=== PATIENT | female | born 1970 | race Caucasian/White ===

== ENCOUNTER 2023-07-29 12:37 | Outpatient (OUT) | payer MEDICARE, SELFPAY ==
--- NOTE | 2023-07-29 12:48 | MM_ITS ---
Patient: DONNA BANERJEE Exam Date: 07/29/2023 : 1970 Gender:F Ordering : DR Calvin Quintanilla . Admission #: [id number] Family : MR. Trey Flores JITENDRA Order #: [id number] CLICK HERE TO VIEW EXAM RADIOLOGY REPORT PROCEDURE: MM TOMOSYNTHESIS SCREENING BI COMPARISON: MG MAMM SCREEN 3D MICHAEL CAD, 07/27/2022. MG MAMM SCREEN 3D MICHAEL CAD, 07/26/2021. INDICATIONS: Screening Calculator Name NCI Breast Cancer Risk Assessment Tool 5 Year Breast Cancer Risk 1.60% Lifetime Breast Cancer Risk 12.50% Personal Breast Cancer No Personal Ovarian Cancer No Treatments None Family Cancers Father with lung cancer at age 55; Aunt-paternal with lung cancer at age 60; Cousin-paternal with breast cancer at age 32. LOCATION: [facility] BREAST COMPOSITION: Heterogeneously dense,which may obscure small masses. FINDINGS: DIAGNOSTIC CATEGORY 2--BENIGN FINDING. NO CHANGE FROM COMPARISON. Scattered benign-appearing nodules are present. Scattered benign-appearing calcifications are present. Scattered benign-appearing lymph nodes are present. RIGHT BREAST: No significant suspicious finding. LEFT BREAST: No significant suspicious finding. RECOMMENDATIONS: ROUTINE MAMMOGRAM AND CLINICAL EVALUATION IN 12 MONTHS. PLEASE NOTE: A NORMAL MAMMOGRAM DOES NOT EXCLUDE THE POSSIBILITY OF BREAST CANCER. A CLINICALLY SUSPICIOUS PALPABLE LUMP SHOULD BE BIOPSIED. Dictated by: Vlad Mary MD on 07/29/2023 at 15:16 Approved by: Vlad Mary MD on 07/29/2023 at 15:19
== END 2023-07-29 12:38 | disposition home or self-care (01) ==
LOC: MAMMO 12:41
PROVIDERS: PCP Physician Assistant; Visit Provider Obstetrics & Gynecology
DX: Z12.31 Encounter for screening mammogram for malignant neoplasm of breast (principal); Z80.3 Family history of malignant neoplasm of breast; Z80.1 Family history of malignant neoplasm of trachea, bronchus and lung
CPT/HCPCS: 77063; 77067

== ENCOUNTER 2024-02-17 21:59 | Outpatient (REF) | payer MEDICARE, SELFPAY | END 2024-02-17 22:00 | disposition home or self-care (01) | LOC: LAB 21:59 | PROVIDERS: PCP Physician Assistant; Visit Provider Obstetrics & Gynecology | DX: Z01.419 Encounter for gynecological examination (general) (routine) without abnormal findings (principal) | CPT/HCPCS: 87624; G0145 ==

== ENCOUNTER 2024-03-31 13:14 | Outpatient (OUT) | payer MEDICARE, SELFPAY ==
[2024-03-31 13:33] LABS: Hemoglobin 15.9 g/dL (12.0-16.0)
[2024-03-31] MEDS: ALBUTEROL SULFATE 2.5 MG/3 ML VIAL NEB IH (14:21)
--- NOTE | 2024-03-31 14:41 | RT_ITS ---
[facility] Test Date: 2024-03-31 Pat Name: DONNA BANERJEE Department: Room: - Gender: Female Batter Scaler: Kevin Aponte RRT : 1970 Requested By: Tye Perkins Order Number: [id number] Reading MD: Tye Perkins Interpretive Statements Pulmonary function testing was completed according to ATS criteria. Findings were considered accurate and reproducible, with exception of DLCO which did not meet ATS standards. Both pre- and post-bronchodilator values utilized for spirometry. Spirometry (based on pre-bronchodilator values): -FEV1/FVC: Normal @ 79% -FEV1: Severely reduced @ 39% -FVC: Severely reduced @ 39% -IKY79-67%: Reduced @ 32% -There is a positive bronchodilator response in LGV23-78%, but diagnostic and clinical significance is unclear. Lung volumes by plethysmography (based on pre-bronchodilator values): -RV: Normal @ 108% -TLC: Normal @ 83% Diffusion capacity: -DLCO: Normal @ 87% when corrected for Hb 15.9g/dL Flow-volume loop: -Severe restrictive pattern Impressions: -Spirometry trends towards very severe restriction with normal lung volumes and diffusion capacity. Overall this is compatible with an obesity pattern (based on patient's BMI of 48.8). Clinical correlation is required. Electronically Signed On 03-31-2024 15:55:40 EDT by Tye Perkins
--- NOTE | 2024-03-31 15:01 | CT_ITS ---
[address] [address] Patient Name: DONNA BANERJEE MRN: [id number] date: 1970 Sex: F Assigned Patient Location: CARD Current Patient Location: Accession/Order Number: [id number] Exam Date: 03/31/2024 15:19 Report Date: 04/01/2024 07:26 At the request of: LARA HARLEY Procedure: CT lung screening low-dose EXAMINATION: CT lung screening low-dose HISTORY: Screening For Malignant Neoplasm Of Respiratory Organs COMPARISON: CTA chest 03/16/2019 TECHNIQUE: Axial, Coronal, and Sagittal images were created without the administration of IV contrast material. Dose reduction techniques were achieved by using automated exposure control and/or adjustment of mA and/or kV according to patient size and/or use of iterative reconstruction technique. FINDINGS: LUNGS: No visible pulmonary disease. PLEURA: Stable 4 mm pleural-based nodule within anterior lateral left upper lobe at level of hilum. No pleural effusion, pneumothorax, or pleural thickening. VASCULATURE: No abnormality. MICHELE: No mass or pathologic adenopathy. MEDIASTINUM: No mass or pathologic adenopathy. CARDIAC: No enlargement, pericardial thickening, or pericardial effusion. Coronary artery calcifications: Mild. AORTA: No aneurysm or dissection. CHEST WALL: No mass or axillary adenopathy BONES: No bone lesion or fracture. LIMITED ABDOMEN: No suspicious findings. Limited images of the upper abdomen. OTHER: Negative. CT/CT lung screening low-dose IMPRESSION: 1. Lung-RADS 2- Benign Appearance or Behavior. Nodules with a very low likelihood of becoming a clinically active cancer due to size or lack of growth. Follow-up CT Chest in 1 year. Electronically authenticated by: RENE MCLAIN Date: 04/01/2024 07:26
== END 2024-03-31 13:15 | disposition home or self-care (01) ==
LOC: CARD 13:15
PROVIDERS: PCP Physician Assistant; Visit Provider Internal Medicine
DX: J45.40 Moderate persistent asthma, uncomplicated (principal); F17.211 Nicotine dependence, cigarettes, in remission; Z12.2 Encounter for screening for malignant neoplasm of respiratory organs
CPT/HCPCS: 36415; 71271; 85018; 94060; 94726; 94729; 99406

== ENCOUNTER 2024-07-30 11:05 | Outpatient (OUT) | payer MEDICARE, MEDICAID, SELFPAY ==
--- NOTE | 2024-07-30 11:11 | MM_ITS ---
Patient Name: DONNA BANERJEE MR#: [id number] : 1970 Exam Date: 07/30/2024 Ordering Doctor: DR Calvin Quintanilla . RADIOLOGY REPORT PROCEDURE: MM TOMOSYNTHESIS SCREENING BI COMPARISON: MM TOMOSYNTHESIS SCREENING BI, 07/29/2023. INDICATIONS: Screening Calculator Name NCI Breast Cancer Risk Assessment Tool 5 Year Breast Cancer Risk 3.40% Lifetime Breast Cancer Risk 24.40% Personal Breast Cancer No Personal Ovarian Cancer No Treatments None Family Cancers Sister with breast cancer at age 51; Father with lung cancer at age 55; Aunt-paternal with lung cancer at age 60; Cousin-paternal with breast cancer at age 32. LOCATION: [facility] BREAST COMPOSITION: The breasts are heterogeneously dense,which may obscure small masses. FINDINGS: DIAGNOSTIC CATEGORY 2--BENIGN FINDING: Scattered benign-appearing calcifications are present. Scattered benign-appearing lymph nodes are present. RIGHT BREAST: No significant suspicious finding. LEFT BREAST: No significant suspicious finding. RECOMMENDATIONS: ROUTINE MAMMOGRAM AND CLINICAL EVALUATION IN 12 MONTHS. PLEASE NOTE: A NORMAL MAMMOGRAM DOES NOT EXCLUDE THE POSSIBILITY OF BREAST CANCER. A CLINICALLY SUSPICIOUS PALPABLE LUMP SHOULD BE BIOPSIED. Dictated by: Vlad Mary MD on 07/30/2024 at 15:39 Approved by: Vlad Mary MD on 07/30/2024 at 15:50
--- OUTSIDE RECORDS SUMMARY | 2024-07-30 11:14 | XMS_ITS | CCD ---
Author Organization [facility] Care Team Providers Care Electronic Warfare Technical Name Role Phone YO HUSSEIN Unavailable Unavailable YO HUSSEIN Unavailable Unavailable Provider, None Unavailable Unavailable Provider, None Unavailable Unavailable Provider, None Unavailable Unavailable BO GIMENEZ Unavailable Unavailable CLIVE COVARRUBIAS Unavailable Unavailable EBRAHEIM, JOVANNI Admitting Unavailable EBRAHEIM, JOVANNI Attending Unavailable UNKNOWN, PHYSICIAN Primary Care Unavailable UNKNOWN, PHYSICIAN Referring Unavailable ABBYESICA, DR RODRIGUEZ Admitting Unavailable ABBAS, DR RODRIGUEZ Consulting Unavailable ABBAS, DR RODRIGUEZ Attending Unavailable REQUEST, NONE LISTED Primary Care Unavaila ble WEST, DR SHAKIRA Gillis Consulting Unavailable JEREL, ERENDIRA Attending Unavailable REQUEST, NONE LISTED Primary Care Unavaila ble JEREL, ERENDIRA Admitting Unavailable JEREL, ERENDIRA Consulting Unavailable JEREL, ERENDIRA Attending Unavailable REQUEST, NONE LISTED Primary Care Unavaila ble WEST, DR SHAKIRA Gillis Consulting Unavailable JEREL, ERENDIRA Admitting Unavailable JEREL, ERENDIRA Consulting Unavailable Angelica Flores PA-C Primary Care Provider [phone] Unavailable Primary Care Provider Unavailabl e ERENDIRA BELTRÁN Attending Unavailable JENNIFER CASTRO Attending Unavailable ANGELICA FLORES Referring Unavailable MAMTA, ANGELICA Ruggiero Primary Care Unavailable JENNIFER CASTRO Attending Unavailable ANGELICA FLORES Referring Unavailable ANGELICA FLORES Primary Care Unavailable JENNIFER CASTRO Attending Unavailable ANGELICA FLORES Referring Unavailable MAMTA, ANGELICA Ruggiero Primary Care Unavailable JENNIFER CASTRO Attending Unavailable ANGELICA FLORES Referring Unavailable MAMTA, ANGELICA Ruggiero Primary Care Unavailable JENNIFER CASTRO Attending Unavailable ANGELICA FLORES Referring Unavailable ANGELICA FLORES Primary Care Unavailable BO DAWSON Attending Unavailable ANGELICA FLORES Referring Unavailable ANGELICA FLORES Primary Care Unavailable SHAKIRA ROGERS Attending Unavailable ANGELICA FLORES Referring Unavailable MARCUS AMADOR Primary Care Unavailable ABBAS, JIHAD T Attending Unavailable FLORES, ANGELICA A Referring Unavailable FOLRES, ANGELICA A Primary Care Unavailable SHAKIRA ROGERS Referring Unavailable PERRY, MARCUS Primary Care Unavailable SHAKIRA ROGERS Attending Unavailable PERRY, MARCUS Referring Unavailable PERRY, MARCUS Primary Care Unavailable SHAKIRA ROGERS Attending Unavailable PERRY, MARCUS Referring Unavailable PERRY, MARCUS Primary Care Unavailable SHAKIRA ROGERS Referring Unavailable PERRY, MARCUS Primary Care Unavailable BROWN, CHRISTOPHER Attending Unavailable BROWN, CHRISTOPHER Attending Unavailable BROWN, CHRISTOPHER Attending Unavailable BROWN, CHRISTOPHER Referring Unavailable BROWN, CHRISTOPHER Attending Unavailable BROWN, CHRISTOPHER Referring Unavailable BROWN, CHRISTOPHER Attending Unavailable BROWN, CHRISTOPHER Referring Unavailable BROWN, CHRISTOPHER Attending Unavailable VERROCAEL CUEVA Attending Unavailable FLORES, ANGELICA A Referring Unavailable FLORES, ANGELICA A Primary Care Unavailable ABBYESICA, JENNIFER Silva Referring Unavailable FLORES, ANGELICA A Primary Care Unavailable HONG CASTRO Attending Unavailable CASTROHONG MACHUCA Referring Unavailable FLORES, ANGELICA A Primary Care Unavailable HONG CASTRO Admitting Unavailable CASTROHONG MACHUCA Attending Unavailable FLORES, ANGELICA A Referring Unavailable FLORES, ANGELICA A Primary Care Unavailable JAMES BROWN Attending Unavailable MAMTA, ANGELICA A Primary Care Unavailable HONG CASTRO Admitting Unavailable CASTROHONG MACHUCA Attending Unavailable FLORES, ANGELICA A Referring Unavailable FLORES, ANGELICA A Primary Care Unavailable CASTROHONG MACHUCA Attending Unavailable CASTROHONG MACHUCA Referring Unavailable FLORES, ANGELICA A Primary Care Unavailable JAMES BROWN Attending Unavailable MAMTA, ANGELICA A Primary Care Unavailable BO DAWSON Referring Unavailable FLORES, ANGELICA A Primary Care Unavailable BO DAWSON Referring Unavailable FLORES, ANGELICA A Primary Care Unavailable ROCAEL GOETZ Attending Unavailable MAMTA, ANGELICA A Referring Unavailable PERRY, MARCUS Primary Care Unavailable SHAKIRA ALVARENGA Referring Unavailable PERRY, MARCUS Primary Care Unavailable FLORES, ANGELICA A Primary Care Unavailable FRANKLIN GREEN Attending Unavailable ELÍAS GUPTA Admitting Unavailable SHAKIRA ALVARENGA Attending Unavailable SHAKIRA ALVARENGA Referring Unavailable PERRY, MARCUS Primary Care Unavailable PERRY, MARCUS Referring Unavailable PERRY, MARCUS Primary Care Unavailable SHAKIRA ALVARENGA Attending Unavailable SHAKIRA ALVARENGA Referring Unavailable PERRY, MARCUS Primary Care Unavailable ROCAEL GOETZ Referring Unavailable PERRY, MARCUS Primary Care Unavailable PERRY, MARCUS Referring Unavailable PERRY, MARCUS Primary Care Unavailable HONG CASTRO Admitting Unavailable CASTRO, HONG E Attending Unavailable MAMTA ANGELICA A Referring Unavailable PERRY, MARCUS Primary Care Unavailable BO DAWSON Referring Unavailable PERRY, MARCUS Primary Care Unavailable BO DAWSON Admitting Unavailable BO DAWSON Attending Unavailable PERRY, MARCUS Primary Care Unavailable SHAKIRA ALVARENGA Attending Unavailable PERRY, MARCUS Primary Care Unavailable ROCAEL GOETZ Attending Unavailable PERRY, MARCUS Referring Unavailable PERRY, MARCUS Primary Care Unavailable PERRY, MARCUS Primary Care Unavailable AMPARO ARTEAGA Attending Unavailable ONLY), [facility] (INPATIENT Consult ing Unavailable GINNY, MUHAMID M Admitting Unavailable [facility], [facility] Consulting Unavailable AMPARO ARTEAGA Attending Unavailable AMPARO ARTEAGA Referring Unavailable PERRY, MARCUS Primary Care Unavailable DEANA NICHOLS Attending Unavailable DEANA NICHOLS Referring Unavailable PERRY, MARCUS Primary Care Unavailable BÁRBARA RYAN Attending Unavailable SHELBY BÁRBARA Referring Unavailable PERRY, MARCUS Primary Care Unavailable BO BECERRA Admitting Unavailable BO BECERRA Attending Unavailable MAMTA, ANGELICA A Primary Care Unavailable JOHANNE ROYAL Attending Unavailable FLORES, ANGELICA A Primary Care Unavailable GRILLISBO Attending Unavailable GRILLIS BO Russel Referring Unavailable FLORES, ANGELICA A Primary Care Unavailable FRANKLIN GREEN Attending Unavailable FRANKLIN GREEN Referring Unavailable FLORES, ANGELICA A Primary Care Unavailable JONE MONTALOV Attending Unavailable JONE MONTALVO Referring Unavailable FLORES, ANGELICA A Primary Care Unavailable ROCAEL GOETZ Attending Unavailable FLORES, ANGELICA A Referring Unavailable FLORES, ANGELICA A Primary Care Unavailable DEANA NICHOLS Attending Unavailable DEANA NICHOLS Referring Unavailable PERRY, MARCUS Primary Care Unavailable JONE MONTALVO Attending Unavailable KRGILBERT JONE D Referring Unavailable PERRY, MARCUS Primary Care Unavailable GINNY, RACHELHAMJASON M Attending Unavailable GINNY, MUHAMID M Referring Unavailable PERRY, MARCUS Primary Care Unavailable JEN AMANDA Attending Unavailable TREASURE JEN Referring Unavailable PERRY, MARCUS Primary Care Unavailable JEN AMANDA Attending Unavailable TREASURE JEN Referring Unavailable PERRY, MARCUS Primary Care Unavailable CASTRO, HONG E Admitting Unavailable CASTROHONG E Attending Unavailable PERRY, MARCUS Referring Unavailable PERRY, MARCUS Primary Care Unavailable BO DAWSON Attending Unavailable BO DAWSON Referring Unavailable PERRY, MARCUS Primary Care Unavailable JEN AMANDA Referring Unavailable [facility] Unavailable Allergies Allergy Classification Reported Allergen(s) Allergy Type Date of Onset Reaction(s) Facility Aminoglycosides (antibiotic) (1 source) Gentamicin Sulfate (INTERMEDIATE); Translations: [GENTAMICIN] Drug Allergy 3 [facility] Anti-Epileptic Agents (1 source) gabapentin; Translations: [GABAPENTIN] Drug Allergy 1 [facility] Latex (1 source) Latex; Translations: [LATEX] Substance Allergy 8 [facility] (13 sources) Latex; Translations: [Latex] Propensity to adverse reactions (disorder) 8 [facility] Rep[facility] (13 sources) gabapentin; Translations: [GABAPENTIN] Drug Allergy 1 Swelling [facility] (12 sources) Gentamicin; Translations: [GENTAMICIN] Drug Allergy 3 Rash [facility] (1 source) Capsaicin; Translations: [CAPSAICIN] Drug Allergy 4 [facility] Medications Current Medications Medication Drug Class(es) Dates Sig (Normalized) Sig (Original) [id number] 200 actuat albuterol 0.09 mg/actuat metered dose inhaler (11 sources) beta2-Adrenergic Agonist Start: 11-16-2022 take 2 puff(s) by inhalation every six hours as needed for wheezing albuterol (PROVENTIL HFA;VENTOLIN HFA) 90 mcg/actuation inhaler Indications: Bronchitis Inhale 2 puffs every 6 (six) hours as needed for wheezing. 18 g 0 11/16/2022 Active DULoxetine 60 mg delayed release oral capsule (13 sources) Serotonin and Norepinephrine Reuptake Inhibitor Start: 01-29-2024 take 1 capsule by mouth in the morning DULoxetine (CYMBALTA) 60 mg capsule Indications: neuropathic pain Take 1 capsule (60 mg total) by mouth in the morning. Indications: neuropathic pain. 30 capsule 3 01/29/2024 Active Start: 09-04-2023 End: 01-27-2024 take 1 capsule by mouth in the morning DULoxetine (CYMBALTA) 60 mg capsule Indications: neuropathic pain Take 1 capsule (60 mg total) by mouth in the morning. Indications: neuropathic pain. 30 capsule 3 09/04/2023 01/27/2024 Discontinued (Reorder) 60 actuat formoterol fumarate 0.005 mg/actuat / mometasone furoate 0.1 mg/actuat metered dose inhaler (11 sources) Corticosteroid, beta2-Adrenergic Agonist take 2 puff(s) by inhalation in the morning mometasone-formoterol (DULERA) 100-5 mcg/actuation inhaler Indications: maintenance therapy for asthma Inhale 2 puffs in the morning and 2 puffs before bedtime. Indications: controller medication for asthma. 0 Active omeprazole 40 mg delayed release oral capsule (11 sources) Proton Pump Inhibitor Start : 07-19 take 1 capsule by mouth in the morning omeprazole (PriLOSEC) 40 mg capsule Indications: gastroesophageal reflux disease Take 1 capsule (40 mg total) by mouth in the morning. Indications: gastroesophageal reflux disease. 0 07/19/2020 Active 24 hr oxybutynin chloride 5 mg extended release oral tablet (11 sources) Cholinergic Muscarinic Antagonist Start : 04-22 take 1 tablet by mouth every twenty-four hours in the morning oxybutynin XL (DITROPAN-XL) 5 mg 24 hr tablet Take 1 tablet (5 mg total) by mouth in the morning. 90 tablet 3 04/22/2023 Active predniSONE 10 mg oral tablet (7 sources) Start : 11-14 End: 11-29 take 4 tablets by mouth once daily, then take 3 tablets by mouth once daily, then take 2 tablets by mouth once daily, then take 1 tablet by mouth once daily predniSONE (DELTASONE) 10 mg tablet Take 4 tablets (40 mg total) by mouth daily for 4 days, THEN 3 tablets (30 mg total) daily for 4 days, THEN 2 tablets (20 mg total) daily for 4 days, THEN 1 tablet (10 mg total) daily for 4 days. 40 tablet 0 11/14/2023 11/29/2023 Active therapeutic multivitamin (THERAGRAN) tablet (11 sources) take 1 tablet by mouth in the morning therapeutic multivitamin (THERAGRAN) tablet Indications: vitamin deficiency prevention Take 1 tablet by mouth in the morning. Indications: treatment to prevent vitamin deficiency. 0 Active take 1 tablet by mouth in the mo rning therapeutic multivitamin (THERAGRAN) tablet Indications: vitamin deficiency prevention Take 1 tablet by mouth in the morning. Indications: treatment to prevent vitamin deficiency. 0 triamcinolone acetonide 0.001 mg/mg topical ointment (4 sources) Corticosteroid Start: 12-12-2023 triamcinolone (KENALOG) 0.1 % ointment Indications: Venous stasis dermatitis of both lower extremities Apply 1 Application topically in the morning and 1 Application before bedtime. 30 g 0 12/12/2023 Active Start: 08-12-2023 End: 11-08-2023 triamcinolone (KENALOG) 0.1 % cream Apply 1 Application topically. 0 08/12/2023 11/08/2023 Discontinued (Therapy completed) Completed/Discontinued Medications Medication Drug Class(es) Dates Sig (Normalized) Sig (Original) acetaminophen 325 mg oral tablet (12 sources) Start: 11-08-2023 End: 11-14-2023 take 1 tablet by mouth every four hours as needed for pain and headache and fever acetaminophen (TYLENOL) tablet 650 mg take 1 tablet by lydia th every eight hours as needed for pain acetaminophen (TYLENOL ARTHRITIS) 650 mg 8 hr tablet Take 1 tablet (650 mg total) by mouth every 8 (eight) hours as needed for pain. 0 Active albuterol 0.833 mg/ml / ipratropium bromide 0.167 mg/ml inhalation solution (1 source) Anticholinergic, beta2-Adrenergic Agonist Start: 11-08-2023 End: 11-08-2023 ipratropium-albuteroL (DUONEB) 0.5 mg-3 mg(2.5 mg base)/3 mL nebulizer solution 3 mL aluminum hydroxide 40 mg/ml / magnesium hydroxide 40 mg/ml / simethicone 4 mg/ml oral suspension (1 source) Start: 11-08-2023 End: 11-14-2023 alum-mag hydroxide-simeth (MAALOX) 200-200-20 mg/5 mL suspension 30 mL aspirin 325 mg delayed release oral tablet (12 sources) Platelet Aggregation Inhibitor, Nonsteroidal Anti-inflammatory Drug Start: 11-09-2023 End: 11-14-2023 take 325 mg by mouth once daily 325 mg, oral, Daily, First dose on 11/09/23 at 0900, Do not crush or chew. calcium carbonate 1250 mg / cholecalciferol 200 unt oral tablet (12 sources) Vitamin D Start: 11-09-2023 End: 11-14-2023 take 1 tablet by mouth once daily at breakfast 1 tablet, oral, Daily with breakfast, First dose on 11/09/23 at 0800, Look-alike/sound-alike medication - verify indication for use. Vit D3 200 IU = 5 mcg. Start: 07-23-2019 take 1 tablet by lydia th once daily in the morning CALCIUM 600 + D,3, 600 mg(1,500mg) -400 unit per tablet Indications: prevention of vitamin D deficiency Take 1 tablet by mouth in the morning. Indications: prevention of vitamin D deficiency. 3 07/23/2019 Active 100 ml calcium gluconate 20 mg/ml injection (1 source) Start: 11-08-2023 End: 11-14-2023 calcium gluconate IVPB 2000 mg/100 mL (20 mg/mL premix) calcium gluconate 3,000 mg in sodium chloride 0.9 % 100 mL IVPB (1 source) Start: 11-08-2023 End: 11-14-2023 calcium gluconate 3,000 mg in sodium chloride 0.9 % 100 mL IVPB calcium gluconate 4,000 mg in sodium chloride 0.9 % 250 mL IVPB (1 source) Start: 11-08-2023 End: 11-14-2023 calcium gluconate 4,000 mg in sodium chloride 0.9 % 250 mL IVPB cefTRIAXone 1000 mg injection (1 source) Cephalosporin Antibacterial Start: 11-12-2023 End: 11-14-2023 take 1000 mg intravenously every twenty-four hours cefTRIAXone (ROCEPHIN) IVPB 1000 mg/50 mL in iso-osmotic dextrose (20 mg/mL premix) docusate sodium 50 mg / sennosides, care home 8.6 mg oral tablet (1 source) Start: 11-08-2023 End: 11-14-2023 take 1 tablet by mouth every twelve hours as needed for constipation sennosides-docus ate sodium (SENOKOT-S) 8.6-50 mg 1 tablet doxycycline hyclate 100 mg oral tablet (5 sources) Tetracycline-class Drug Start: 11-12-2023 End: 11-19-2023 take 1 tablet by mouth in the morning, then take 1 tablet by mouth at bedtime doxycycline (VIBRA-TABS) 100 mg tablet Take 1 tablet (100 mg total) by mouth in the morning and 1 tablet (100 mg total) before bedtime. Do all this for 5 days. 10 tablet 0 11/14/2023 11/19/2023 0.4 ml enoxaparin sodium 100 mg/ml prefilled syringe (2 sources) Low Molecular Weight Heparin Start: 11-09-2023 End: 11-14-2023 enoxaparin (LOVENOX) syringe 40 mg Start: 11-08-2023 End: 11-09-2023 enoxaparin (LOVENOX) 40 mg/0 .4 mL syringe - Pyxis Override Pull glucagon (rdna) 1 mg injection (1 source) Antihypoglycemic Agent Start: 11-08-2023 End: 11-14-2023 glucagon HCL injection 1 mg 150 ml glucose 50 mg/ml injection (3 sources) Start: 11-08-2023 End: 11-14-2023 dextrose (GLUTOSE) 40 % gel 15 g Start: 11-08-2023 End: 11-14-2023 dextrose 50 % in water (D50W ) 50% solution 25 mL Start: 11-08-2023 End: 11-14-2023 dextrose 5 % (D5W) infusion insulin lispro (HumaLOG) 100 unit/mL injection - Pyxis Override Pull (1 source) Start: 11-08-2023 End: 11-08-2023 insulin lispro (HumaLOG) 100 unit/mL injection - Pyxis Override Pull insulin lispro (HumaLOG) injection 2-10 Units (1 source) Start: 11-09-2023 End: 11-14-2023 insulin lispro (HumaLOG) injection 2-10 Units insulin lispro (HumaLOG) injection 2-8 Units (1 source) Start: 11-08-2023 End: 11-14-2023 insulin lispro (HumaLOG) injection 2-8 Units levalbuterol 0.417 mg/ml inhalation solution (1 source) beta2-Adrenerg ic Agonist Start: 11-08-2023 End: 11-14-2023 take 1.25 mg by inhalation every six hours as needed for wheezing and dyspnea levalbuterol (XOPENEX) nebulizer solution 1.25 mg loratadine 10 mg oral tablet (13 sources) Start: 11-08-2023 End: 11-14-2023 take 10 mg by mouth once daily for rhinitis 10 mg, oral, Nightly, First dose on Sat11/08/23 at 2200, Look-alike/sound-a like medication - verify indication for use., Indications: allergic rhinitis 50 ml magnesium sulfate 40 mg/ml injection (2 sources) Start: 11-08-2023 End: 11-14-2023 magnesium sulfate IVPB 2000 mg/50 mL in iso-osmotic water (40 mg/mL premix) Start: 11-08-2023 End: 11-14-2023 magnesium sulfate IVPB 4000 mg/100 mL in iso-osmotic water (40 mg/mL premix) melatonin 3 mg oral tablet (1 source) Start: 11-09-2023 End: 11-14-2023 melatonin (CIRCADIN) tablet 3 mg methylPREDNISolone 40 mg injection (3 sources) Corticosteroid Start: 11-08-2023 End: 11-14-2023 methylPREDNISolone sod suc(PF) (Solu-MEDROL) injection 40 mg Start: 11-08-2023 End: 11-08-2023 methylPREDNISolone sod suc(P F) (Solu-MEDROL) injection 125 mg montelukast 10 mg oral tablet (13 sources) Leukotriene Receptor Antagonist Start: 11-08-2023 End: 11-14-2023 take 10 mg by mouth once daily 10 mg, oral, Nightly, First dose on Sat11/08/23 at 2200, Look-alike/sound-alike medication - verify indication for use., Indications: maintenance therapy for asthma hbrcumur-beaq-V A-calcium &mins (THERAGRAN-M) 9 mg iron-400 mcg tablet 1 tablet (1 source) Start: 11-09-2023 End: 11-14-2023 take 1 tablet by mouth once daily 1 tablet, oral, Daily, First dose on Sat11/09/23 at 0900 2 ml ondansetron 2 mg/ml injection (12 sources) Serotonin-3 Receptor Antagonist Start: 11-08-2023 End: 11-14-2023 take 4 mg intravenously every six hours as needed for nausea and vomiting ondansetron (PF) (ZOFRAN) injection 4 mg Start: 03-18-2018 take 1 tablet by lydia th every six hours as needed for nausea and vomiting ondansetron (ZOFRAN) 4 mg tablet Take 1 tablet (4 mg total) by mouth every 6 (six) hours as needed for nausea or vomiting for up to 20 doses. 20 tablet 0 03/18/2018 Active oseltamivir 75 mg oral capsule (2 sources) Neuraminidase Inhibitor Start: 11-08-2023 End: 11-13-2023 oseltamivir (TAMIFLU) 75 mg capsule - Pyxis Override Pull pantoprazole 40 mg delayed release oral tablet (1 source) Proton Pump Inhibitor Start: 11-11-2023 End: 11-14-2023 pantoprazole (PROTONIX) EC tablet 40 mg Potassium Chloride (1 source) Start: 11-08-2023 End: 11-14-2023 potassium chloride (K-TAB,KLOR-CON) CR tablet 30-50 mEq 125 ml sodium chloride 9 mg/ml prefilled syringe (4 sources) Start: 11-08-2023 End: 11-14-2023 sodium chloride 0.9 % flush 3 mL Start: 11-08-2023 End: 11-14-2023 sodium chloride 0.9 % infusi on Problems Active Problems Problem Classification Problem Date Documented Da te Episodic/Chronic Calculus of urinary tract (12 sources) Kidney stone; Translations: [Calculus of kidney] Onset: 01-08-2017 07-31-2023 Episodic Chronic obstructive pulmonary disease and bronchiectasis (17 sources) Acute exacerbation of chronic obstructive airways disease; Translations: [Chronic obstructive pulmonary disease with (acute) exacerbation] Onset: 11-08-2023 11-08-2023 Chronic Chronic ulcer of skin (1 source) Non-pressure chronic ulcer of right calf with fat layer exposed; Translations: [Non-pressure chronic ulcer of right calf with fat layer exposed] Onset: 07-23-2023 Chronic Diabetes mellitus without complication (1 source) Prediabetes; Translations: [Prediabetes] Onset: 07-08-2024 Episodic Fluid and electrolyte disorders (11 sources) Hypokalemia; Translations: [Hypokalemia] Onset: 11-08-2023 11-08-2023 Episodic Genitourinary symptoms and ill-defined conditions (20 sources) Urge incontinence of urine; Translations: [Urge incontinence] Onset: 11-22-2021 4 Chronic Genitourinary symptoms and ill-defined conditions (12 sources) [place] hematuria; Translations: [Gross hematuria] Onset: 01-08-2017 07-31-2023 Episodic Osteoarthritis (3 sources) Unilateral primary osteoarthritis, right knee; Translations: [Unilateral primary osteoarthritis, left knee] Onset: 12-18-2023 Chronic Other connective tissue disease (1 source) Pain in lower limb Onset: 07-07-2024 Episodic Other lower respiratory disease (1 source) Hypoxia; Translations: [Hypoxemia] 11-08-2023 Episodic Other lower respiratory disease (1 source) Cough Onset: 07-07-2024 Episodic Other nervous system disorders (1 source) Polyneuropathy, unspecified; Translations: [Polyneuropathy, unspecified] Onset: 07-08-2024 Chronic Other non-traumatic joint disorders (1 source) Pain in right hip; Translations: [Pain in right hip] Onset: 07-01-2024 Episodic Other non-traumatic joint disorders (1 source) Pain in left hip; Translations: [Pain in left hip] Onset: 07-01-2024 Episodic Other non-traumatic joint disorders (1 source) Pain in right knee; Translations: [Pain in right knee] Onset: 05-06-2024 Episodic Other nutritional; endocrine; and metabolic disorders (10 sources) Disorder of mineral metabolism; 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, unspecified] Onset: 01-30-2017 07-31-2023 Chronic Other nutritional; endocrine; and metabolic disorders (1 source) Morbid (severe) obesity due to excess calories; Translations: [Morbid (severe) obesity due to excess calories] Onset: 06-03-2024 Chronic Other nutritional; endocrine; and metabolic disorders (1 source) Body mass index (BMI) 45.0-49.9, adult; Translations: [Body mass index (BMI) 45.0-49.9, adult] Onset: 06-03-2024 Chronic Other screening for suspected conditions (not mental disorders or infectious disease) (11 sources) Encounter for screening for malignant neoplasm of cervix; Translations: [Encounter for screening mammogram for malignant neoplasm of breast] Onset: 07-27-2022 Episodic Other upper respiratory disease (1 source) Pain in throat Onset: 07-07-2024 Episodic Residual codes; unclassified (1 source) Pain Onset: 05-06-2024 Episodic Respiratory failure; insufficiency; arrest (adult) (1 source) Respiratory failure; insufficiency; arrest (adult) Onset: 02-13-2024 Skin and subcutaneous tissue infections (1 source) Cellulitis, unspecified; Translations: [Cellulitis, unspecified] Onset: 07-07-2024 Episodic Spondylosis; intervertebral disc disorders; other back problems (12 sources) Lumbar spondylosis; Translations: [Spondylosis without myelopathy or radiculopathy, lumbar region] Onset: 05-24-2021 01-24-2023 Chronic Spondylosis; intervertebral disc disorders; other back problems (20 sources) Disorder of sacrum; Translations: [Sacrococcygeal disorders, not elsewhere classified] Onset: 03-21-2021 09-04-2023 Episodic Unclassified (1 source) Extremity Pain Onset: 12-12-2023 Unclassified (1 source) Injection Onset: 07-01-2024 Past or Other Problems Problem Classification Problem Date Documented Da te Episodic/Chronic Influenza (13 sources) Influenza due to Influenza A virus; Translations: [Influenza due to other identified influenza virus with other respiratory manifestations] Onset: 11-08-2023 11-08-2023 Episodic Other bone disease and musculoskeletal deformities (1 source) Other specified disorders of bone density and structure, right thigh; Translations: [OTH D/O BONE DEN STRUCT RT THIGH] Onset: 07-30-2022 Episodic Other connective tissue disease (10 sources) Pain of left calf; Translations: [Pain in left lower leg] Onset: 03-21-2021 03-21-2021 Episodic Other connective tissue disease (1 source) Leg swelling symptom Onset: 12-12-2023 Episodic Other connective tissue disease (1 source) Pain in leg, unspecified; Translations: [Pain in leg, unspecified] Onset: 03-05-2024 Episodic Other connective tissue disease (1 source) Other specified soft tissue disorders; Translations: [Other specified soft tissue disorders] Onset: 03-05-2024 Episodic Other diseases of veins and lymphatics (10 sources) Stasis dermatitis; Translations: [Venous insufficiency (chronic) (peripheral)] Onset: 07-23-2023 07-23-2023 Episodic Other diseases of veins and lymphatics (1 source) Disorder of vein of lower extremity; Translations: [Venous insufficiency (chronic) (peripheral)] Onset: 07-23-2023 07-23-2023 Episodic Other diseases of veins and lymphatics (1 source) Venous insufficiency (chronic) (peripheral); Translations: [Venous insufficiency (chronic) (peripheral)] Onset: 07-23-2023 Episodic Other injuries and conditions due to external causes (1 source) Unspecified injury of right ankle, initial encounter; Translations: [Unspecified injury of right ankle, initial encounter] Onset: 11-19-2017 Episodic Other lower respiratory disease (1 source) Hypoxemia; Translations: [Hypoxemia] Onset: 11-08-2023 Episodic Other lower respiratory disease (1 source) Shortness of breath; Translations: [Shortness of breath] Onset: 11-08-2023 Episodic Other lower respiratory disease (1 source) Shortness of breath Onset: 11-08-2023 Episodic Residual codes; unclassified (1 source) Asymptomatic menopausal state; Translations: [ASYMPTOMATIC MENOPAUSAL STATE] Onset: 07-30-2022 Episodic Residual codes; unclassified (1 source) Family history of malignant neoplasm of trachea, bronchus and lung; Translations: [FAM HX MALIG NEOPLSM TRACH BRON LNG] Onset: 07-30-2022 Episodic Residual codes; unclassified (1 source) Family history of malignant neoplasm of breast; Translations: [FAMILY HX MALIG NEOPLASM OF BREAST] Onset: 07-30-2022 Episodic Respiratory failure; insufficiency; arrest (adult) (15 sources) Acute respiratory failure; Translations: [Acute respiratory failure with hypoxia] Onset: 11-09-2023 11-11-2023 Episodic Urinary tract infections (10 sources) Urinary tract infectious disease; Translations: [Urinary tract infection, site not specified] Onset: 01-08-2017 01-14-2023 Episodic Varicose veins of lower extremity (20 sources) Varicose veins of lower extremity; Translations: [Varicose veins of bilateral lower extremities with pain] Onset: 11-24-2020 11-24-2020 Episodic Results Test Name Value Interpretation Reference Range Facility XR ABDOMEN AP 1 VWon 024 XR ABDOMEN AP 1 [facility]OL[facility]Lon 07-27 Anion gap [Moles/Vol] 10 mmol/L Normal - [facility] Comment on above: Performed By: #### C BCA, BMP ####[facility] ([id number])[address] [place] [address] Calcium [Mass/Vol] 9.5 mg/dL Normal 8.5-10.5 [facility] Comment on above: Performed By: #### C BCA, BMP ####[facility] ([id number])[address], [place] [address] Chloride [Moles/Vol] 101 mmol/L Normal 98-109 [facility] Comment on above: Performed By: #### C BCA, BMP ####[facility] ([id number])[address], [place] [address] CO2 [Moles/Vol] 30 mmol/L Normal 22-32 [facility] Comment on above: Performed By: #### C BCA, BMP ####[facility] ([id number])[address], [place] [address] Creatinine [Mass/Vol] 0.65 mg/dL Normal 0.40-1.00 [facility] Comment on above: Result Comment: METH OD TRACEABLE TO IDMS STANDARD Performed By: #### C SHAWN, BMP ####[facility] ([id number])[address] [address], [place] [address] eGFR (CKD-EPI) NON-RACE DEPENDENT >90 Normal >59 [facility] Comment on above: Result Comment: Repo rted eGFR is based on theCKD-EPI 2020 equation that doesnot use a race coefficient. Performed By: #### C BCA, BMP ####[facility] ([id number])[address] [place] [address] Glucose [Mass/Vol] 107 mg/dL High 65-99 [facility] Comment on above: Performed By: #### C BCA, BMP ####[facility] ([id number])[address] [address] [address] Potassium [Moles/Vol] 4.4 mmol/L Normal 3.5-5.0 [facility] Comment on above: Performed By: #### Darian ESCOBAR, BMP ####[facility] ([id number])[address] [address] Sodium [Moles/Vol] 141 mmol/L Normal 134-146 [facility] Comment on above: Performed By: #### Darian ESCOBAR, BMP ####[facility] ([id number])[address] [place] [address] Urea nitrogen [Mass/Vol] 15 mg/dL Normal 5-23 [facility] Comment on above: Performed By: #### Darian ESCOBAR, BMP ####[facility] ([id number])[address] [place] [address] CBC AND AUTO DIFFon 07-27-20 24 ABSOLUTE BASOPHIL 0.2 X10E9/L Normal 0.0-0.2 [facility] Comment on above: Performed By: #### Darian ESCOBAR, BMP ####[facility] ([id number])[address] [place] [address] ABSOLUTE NEUTROPHIL 5.6 X10E9/L Normal 1.5-6.6 [facility] Comment on above: Performed By: #### Darian ESCOBAR, BMP ####[facility] ([id number])[address] [place] [address] Basophils/100 WBC (Bld) 2.0 % Normal [facility] Comment on above: Performed By: #### Darian ESCOBAR, BMP ####[facility] ([id number])[address] [place] [address]874 Eosinophils (Bld) [#/Vol] 0.3 10*3/uL Normal 0.0-0.4 [facility] Comment on above: Performed By: #### C SHAWN, BMP ####[facility] ([id number])[address] [place] [address] Eosinophils/100 WBC (Bld) 3.1 % Normal [facility] Comment on above: Performed By: #### C SHAWN, BMP ####[facility] ([id number])[address] [place] [address] Erythrocyte distribution width (RBC) [Ratio] 14.3 % Normal 11.5-15.0 [facility] Comment on above: Performed By: #### C SHAWN, BMP ####[facility] ([id number])[address] [address] Hematocrit (Bld) [Volume fraction] 37.9 % Normal 35-47 [facility] Comment on above: Performed By: #### C SHAWN, BMP ####[facility] ([id number])[address] [place] [address] Hemoglobin (Bld) [Mass/Vol] 12.4 g/dL Normal 11.7-15.5 [facility] Comment on above: Performed By: #### C SHAWN, BMP ####[facility] ([id number])[address] [address] Lymphocytes (Bld) [#/Vol] 2.9 10*3/uL Normal 1.0-3.5 [facility] Comment on above: Performed By: #### C SHAWN, BMP ####[facility] ([id number])[address] [address] Lymphocytes/100 WBC (Bld) 29.7 % Normal [facility] Comment on above: Performed By: #### C BCA, BMP ####[facility] ([id number])[address] [address] MCH (RBC) [Entitic mass] 30.6 pg Normal 27-34 [facility] Comment on above: Performed By: #### C SHAWN, BMP ####[facility] ([id number])[address] [address] MCHC (RBC) [Mass/Vol] 32.8 g/dL Normal 32-36 [facility] Comment on above: Performed By: #### C BCA, BMP ####[facility] ([id number])[address] [address] MCV (RBC) [Entitic vol] 93 fL Normal 80-100 [facility] Comment on above: Performed By: #### C SHAWN, BMP ####[facility] ([id number])[address] [address] Monocytes (Bld) [#/Vol] 0.6 10*3/uL Normal 0-0.9 [facility] Comment on above: Performed By: #### C SHAWN, BMP ####[facility] ([id number])[address] [place] [address] Monocytes/100 WBC (Bld) 6.5 % Normal [facility] Comment on above: Performed By: #### C BCA, BMP ####[facility] ([id number])[address] [address] Neutrophils/100 WBC (Bld) 58.7 % Normal [facility] Comment on above: Performed By: #### C BCA, BMP ####[facility] ([id number])[address] [place] [address] Platelet mean volume (Bld) [Entitic vol] 7.9 fL Normal 7-12 [facility] Comment on above: Performed By: #### C BCA, BMP ####[facility] ([id number])[address] [place] [address] Platelets (Bld) [#/Vol] 490 10*3/uL High 150-450 [facility] Comment on above: Performed By: #### Darian ESCOBAR, BMP ####[facility] ([id number])[address] [address] RBC COUNT 4.06 X10E12/L Normal 3.80-5.20 [facility] Comment on above: Performed By: #### C SHAWN, BMP ####[facility] ([id number])[address] [place] [address] WBC (Bld) [#/Vol] 9.6 10*3/uL Normal 4.0-11.0 [facility] Comment on above: Performed By: #### Darian ESCOBAR, BMP ####[facility] ([id number])[address] [address] 36on 07-21-2024 36 Has an appointment [facility] on 07-20-2024 36 Please schedule this patient in 1-2 weeks. Normal [facility] Telephoneon 07-20-2024 Telephone [phone] ErrolNara winston Lo[place] 1970 F Date Provider Department Center 07/20/2024 NEL[facility] IN[facility] No family history on file Normal [facility] CBC AND AUTO DIFFon 07-19-20 24 ABSOLUTE BASOPHIL 0.1 X10E9/L Normal 0.0-0.2 [facility] Comment on above: Performed By: #### C MELISA, CBCA, 51810-3 ####[facility] ([id number])[address] [place] [address] ABSOLUTE NEUTROPHIL 7.1 X10E9/L High 1.5-6.6 [facility] Comment on above: Performed By: #### C MELISA, CBCA, 50682-5 ####[facility] ([id number])[address] [place] [address] 6[address] Basophils/100 WBC (Bld) 1.2 % Normal [facility] Comment on above: Performed By: #### C MELISA, CBCA, ####[facility] ([id number])[address] [place] [address] 12448 Eosinophils (Bld) [#/Vol] 0.3 10*3/uL Normal 0.0-0.4 [facility] Comment on above: Performed By: #### C MELISA, CBCA, ####[facility] ([id number])[address] [place] [address]14[address] Eosinophils/100 WBC (Bld) 2.8 % Normal [facility] Comment on above: Performed By: #### C MELISA, CBCA, ####[facility] ([id number])[address] [place] [address] Erythrocyte distribution width (RBC) [Ratio] 14.1 % Normal 11.5-15.0 [facility] Comment on above: Performed By: #### C MELISA, CBCA, ####[facility] ([id number])[address] [place] [address] Hematocrit (Bld) [Volume fraction] 32.0 % Low 35-47 [facility] Comment on above: Performed By: #### C MELISA, CBCA, ####[facility] ([id number])[address] [place] [address] Hemoglobin (Bld) [Mass/Vol] 10.2 g/dL Low 11.7-15.5 [facility] Comment on above: Performed By: #### C MELISA, CBCA, ####[facility] ([id number])[address] [place] [address] 377[address] Lymphocytes (Bld) [#/Vol] 2.2 10*3/uL Normal 1.0-3.5 [facility] Comment on above: Performed By: #### C PAMELA VINCENT, ####[facility] ([id number])[address] [place] [address] Lymphocytes/100 WBC (Bld) 20.4 % Normal [facility] Comment on above: Performed By: #### C PAMELA VINCENT, ####[facility] ([id number])[address] [place] [address] 16972 MCH (RBC) [Entitic mass] 29.8 pg Normal 27-34 [facility] Comment on above: Performed By: #### C PAMELA VINCENT, ####[facility] ([id number])[address] [place] [address] 37062 MCHC (RBC) [Mass/Vol] 32.0 g/dL Normal 32-36 [facility] Comment on above: Performed By: #### C PAMELA VINCENT, ####[facility] ([id number])[address] [place] [address] 39418 MCV (RBC) [Entitic vol] 93 fL Normal 80-100 [facility] Comment on above: Performed By: #### C PAMELA VINCENT, ####[facility] ([id number])[address] [place] [address] 13581 Monocytes (Bld) [#/Vol] 1.1 10*3/uL High 0-0.9 [facility] Comment on above: Performed By: #### C PAMELA VINCENT, ####[facility] ([id number])[address] [place] [address] 05160 Monocytes/100 WBC (Bld) 10.1 % Normal [facility] Comment on above: Performed By: #### C MELISA, CBCA, ####[facility] ([id number])[address] [place] [address] 04128 Neutrophils/100 WBC (Bld) 65.5 % Normal [facility] Comment on above: Performed By: #### C MELISA, CBCA, ####[facility] ([id number])[address] [place] [address] Platelet mean volume (Bld) [Entitic vol] 7.8 fL Normal 7-12 [facility] Comment on above: Performed By: #### C MELISA, CBCA, ####[facility] ([id number])[address] [place] [address] 62047 Platelets (Bld) [#/Vol] 516 10*3/uL High 150-450 [facility] Comment on above: Performed By: #### C MELISA, CBCA, ####[facility] ([id number])[address] [place] [address] 64360 RBC COUNT 3.44 X10E12/L Low 3.80-5.20 [facility] Comment on above: Performed By: #### C MELISA, CBCA, ####[facility] ([id number])[address] [place] [address] 84386 WBC (Bld) [#/Vol] 10.9 10*3/uL Normal 4.0-11.0 [facility] Comment on above: Performed By: #### C MELISA, CBCA, ####[facility] ([id number])[address] [place] [address] COMPREHENSIVE METABOLIC PANE Charles 07-19-2024 Albumin [Mass/Vol] 2.6 g/dL Low 3.2-5.3 [facility] Comment on above: Performed By: #### C PAMELA VINCENT, ####[facility] ([id number])[address] [place] [address] [place] [address] ALP [Catalytic activity/Vol] 66 U/L Normal 39-130 [facility] Comment on above: Performed By: #### C PAMELA VINCENT, ####[facility] ([id number])[address] [place] [address] [place] [address] ALT [Catalytic activity/Vol] 9 U/L Normal 0-31 [facility] Comment on above: Performed By: #### C MELISA CBCBahman, ####[facility] ([id number])[address] [place] [address] [place] [address] Anion gap [Moles/Vol] 9 mmol/L Normal 5-15 [facility] Comment on above: Performed By: #### C MELISA CBCBahman, ####[facility] ([id number])[address] [place] [address] [place] [address] AST [Catalytic activity/Vol] 14 U/L Normal 0-41 [facility] Comment on above: Performed By: #### C PAMELA VINCENT, ####[facility] ([id number])[address] [place] [address] [place] [address] Bilirubin [Mass/Vol] 0.5 mg/dL Normal 0.3-1.2 [facility] Comment on above: Performed By: #### C MELISA CBCA, ####[facility] ([id number])[address] [place] [address] [place] [address] Calcium [Mass/Vol] 8.5 mg/dL Normal 8.5-10.5 [facility] Comment on above: Performed By: #### C MELISA CBCBahman, ####[facility] ([id number])[address] [place] [address] [place] [address] Chloride [Moles/Vol] 99 mmol/L Normal 98-109 [facility] Comment on above: Performed By: #### C PAMELA VINCENT, ####[facility] ([id number])[address] [place] [address]779 CO2 [Moles/Vol] 30 mmol/L Normal 22-32 [facility] Comment on above: Performed By: #### C PAMELA VINCENT, ####[facility] ([id number])[address] [place] [address] 12245 Creatinine [Mass/Vol] 0.57 mg/dL Normal 0.40-1.00 [facility] Comment on above: Result Comment: METH OD TRACEABLE TO IDMS STANDARD Performed By: #### C PAMELA VINCENT, ####[facility] ([id number])[address] [place] [address] [place] [address] eGFR (CKD-EPI) NON-RACE DEPENDENT >90 Normal >59 [facility] Comment on above: Result Comment: Repo rted eGFR is based on theCKD-EPI 2020 equation that doesnot use a race coefficient. Performed By: #### C PAMELA VINCENT, ####[facility] ([id number])[address] [place] [address] [place] [address] Glucose [Mass/Vol] 114 mg/dL High 65-99 [facility] Comment on above: Performed By: #### C PAMELA VINCENT, ####[facility] ([id number])[address] [place] [address] 10014 Potassium [Moles/Vol] 4.2 mmol/L Normal 3.5-5.0 [facility] Comment on above: Performed By: #### C PAMELA VINCENT, ####[facility] ([id number])[address] [place] [address] 03247 Protein [Mass/Vol] 8.1 g/dL High 6.0-8.0 [facility] Comment on above: Performed By: #### C PAMELA VINCENT, ####[facility] ([id number])[address] [place] [address] 11347 Sodium [Moles/Vol] 138 mmol/L Normal 134-146 [facility] Comment on above: Performed By: #### C PAMELA VINCENT, ####[facility] ([id number])[address] [place] [address] 26378 Urea nitrogen [Mass/Vol] 12 mg/dL Normal 5-23 [facility] Comment on above: Performed By: #### C PAMELA VINCENT, ####[facility] ([id number])[address] [place] [address] 88946 MAGNESIUMon 07-19-2024 Magnesium [Mass/Vol] 2.0 mg/dL Normal 1.8-2.6 [facility] Comment on above: Performed By: #### C PAMELA VINCENT, ####[facility] ([id number])[address] [place] [address] 40482 CBC AND AUTO DIFFon 07-18-20 ABSOLUTE BASOPHIL 0.1 X10E9/L Normal 0.0-0.2 [facility] Comment on above: Performed By: #### C JENNIFER VINCENTA, ####[facility] ([id number])[address] [place] [address] 865[address] ABSOLUTE NEUTROPHIL 8.4 X10E9/L High 1.5-6.6 [facility] Comment on above: Performed By: #### C PAMELA VINCENT, ####[facility] ([id number])[address] [place] [address] 36486 Basophils/100 WBC (Bld) 0.6 % Normal [facility] Comment on above: Performed By: #### C MELISA, CBCA, ####[facility] ([id number])[address] [place] [address] 38352 Eosinophils (Bld) [#/Vol] 0.3 10*3/uL Normal 0.0-0.4 [facility] Comment on above: Performed By: #### C MELISA, CBCA, ####[facility] ([id number])[address] [place] [address] 47102 Eosinophils/100 WBC (Bld) 2.6 % Normal [facility] Comment on above: Performed By: #### C MELISA, CBCA, ####[facility] ([id number])[address] [place] [address] 25805 Erythrocyte distribution width (RBC) [Ratio] 14.5 % Normal 11.5-15.0 [facility] Comment on above: Performed By: #### C MELISA, CBCA, ####[facility] ([id number])[address] [place] [address] 525[address] Hematocrit (Bld) [Volume fraction] 30.9 % Low 35-47 [facility] Comment on above: Performed By: #### C MELISA, CBCA, ####[facility] ([id number])[address] [place] [address] 38543 Hemoglobin (Bld) [Mass/Vol] 9.9 g/dL Low 11.7-15.5 [facility] Comment on above: Performed By: #### C MELISA, CBCA, ####[facility] ([id number])[address] [place] [address] 37437 Lymphocytes (Bld) [#/Vol] 2.0 10*3/uL Normal 1.0-3.5 [facility] Comment on above: Performed By: #### C PAMELA VINCENT, ####[facility] ([id number])[address] [place] [address] 93665 Lymphocytes/100 WBC (Bld) 16.9 % Normal [facility] Comment on above: Performed By: #### C MELISA CBCBahman, ####[facility] ([id number])[address] [place] [address] 88582 MCH (RBC) [Entitic mass] 29.8 pg Normal 27-34 [facility] Comment on above: Performed By: #### C PAMELA VINCENT, ####[facility] ([id number])[address] [place] [address] 91492 MCHC (RBC) [Mass/Vol] 32.1 g/dL Normal 32-36 [facility] Comment on above: Performed By: #### C PAMELA VINCENT, ####[facility] ([id number])[address] [place] [address] 64715 MCV (RBC) [Entitic vol] 93 fL Normal 80-100 [facility] Comment on above: Performed By: #### C MELISA CBCBahman, ####[facility] ([id number])[address] [place] [address] 59170 Monocytes (Bld) [#/Vol] 1.1 10*3/uL High 0-0.9 [facility] Comment on above: Performed By: #### C MELISA CBCBahman, ####[facility] ([id number])[address] [place] [address] 96187 Monocytes/100 WBC (Bld) 9.2 % Normal [facility] Comment on above: Performed By: #### C MELISA, CBCA, ####[facility] ([id number])[address] [place] [address] 44810 Neutrophils/100 WBC (Bld) 70.7 % Normal [facility] Comment on above: Performed By: #### C MELISA, CBCA, ####[facility] ([id number])[address] [place] [address] 43726 Platelet mean volume (Bld) [Entitic vol] 7.9 fL Normal 7-12 [facility] Comment on above: Performed By: #### C MELISA, CBCA, ####[facility] ([id number])[address] [place] [address] 35449 Platelets (Bld) [#/Vol] 490 10*3/uL High 150-450 [facility] Comment on above: Performed By: #### C MELISA, CBCA, ####[facility] ([id number])[address] [place] [address] 52929 RBC COUNT 3.33 X10E12/L Low 3.80-5.20 [facility] Comment on above: Performed By: #### C MELISA, CBCA, ####[facility] ([id number])[address] [place] [address] 02601 WBC (Bld) [#/Vol] 11.9 10*3/uL High 4.0-11.0 [facility] Comment on above: Performed By: #### C MELISA, CBCA, ####[facility] ([id number])[address] [place] [address] 19205 COMPREHENSIVE METABOLIC PANE Charles 07-18-2024 Albumin [Mass/Vol] 2.5 g/dL Low 3.2-5.3 [facility] Comment on above: Performed By: #### C PAMELA VINCENT, ####[facility] ([id number])[address] [place] [address] 31965 ALP [Catalytic activity/Vol] 70 U/L Normal 39-130 [facility] Comment on above: Performed By: #### C PAMELA VINCENT, ####[facility] ([id number])[address] [place] [address] [place] [address] ALT [Catalytic activity/Vol] 10 U/L Normal 0-31 [facility] Comment on above: Performed By: #### C PAMELA VINCENT, ####[facility] ([id number])[address] [place] [address] 71629 Anion gap [Moles/Vol] 10 mmol/L Normal 5-15 [facility] Comment on above: Performed By: #### C PAMELA VINCENT, ####[facility] ([id number])[address] [place] [address] [place] [address] AST [Catalytic activity/Vol] 14 U/L Normal 0-41 [facility] Comment on above: Performed By: #### C PAMELA VINCENT, ####[facility] ([id number])[address] [place] [address] [place] [address] Bilirubin [Mass/Vol] 0.4 mg/dL Normal 0.3-1.2 [facility] Comment on above: Performed By: #### C PAMELA VINCENT, ####[facility] ([id number])[address] [place] [address] Calcium [Mass/Vol] 8.1 mg/dL Low 8.5-10.5 [facility] Comment on above: Performed By: #### C PAMELA VINCENT, ####[facility] ([id number])[address] [place] [address] Chloride [Moles/Vol] 99 mmol/L Normal 98-109 [facility] Comment on above: Performed By: #### C PAMELA VINCENT, ####[facility] ([id number])[address] [place] [address] CO2 [Moles/Vol] 27 mmol/L Normal 22-32 [facility] Comment on above: Performed By: #### C PAMELA VINCENT, ####[facility] ([id number])[address] [place] [address] Creatinine [Mass/Vol] 0.62 mg/dL Normal 0.40-1.00 [facility] Comment on above: Result Comment: METH OD TRACEABLE TO IDMS STANDARD Performed By: #### C PAMELA VINCENT, ####[facility] ([id number])[address] [place] [id number] eGFR (CKD-EPI) NON-RACE DEPENDENT >90 Normal >59 [facility] Comment on above: Result Comment: Repo rted eGFR is based on theCKD-EPI 2020 equation that doesnot use a race coefficient. Performed By: #### C PAMELA VINCENT, ####[facility] ([id number])[address] [place] [address] 40801 Glucose [Mass/Vol] 153 mg/dL High 65-99 [facility] Comment on above: Performed By: #### C PAMELA VINCENT, ####[facility] ([id number])[address] [place] [address] 42835 Potassium [Moles/Vol] 4.1 mmol/L Normal 3.5-5.0 [facility] Comment on above: Performed By: #### C PAMELA VINCENT, ####[facility] ([id number])[address] [place] [address] 54833 Protein [Mass/Vol] 7.7 g/dL Normal 6.0-8.0 [facility] Comment on above: Performed By: #### C MP, CBCA, ####[facility] ([id number])[address] [place] [address] 06398 Sodium [Moles/Vol] 136 mmol/L Normal 134-146 [facility] Comment on above: Performed By: #### C MELISA, CBCA, ####[facility] ([id number])[address] [place] [address] 08196 Urea nitrogen [Mass/Vol] 11 mg/dL Normal 5-23 [facility] Comment on above: Performed By: #### C MELISA, CBCA, ####[facility] ([id number])[address] [place] [address] 22071 MAGNESIUMon 07-18-2024 Magnesium [Mass/Vol] 1.9 mg/dL Normal 1.8-2.6 [facility] Comment on above: Performed By: #### C MP, CBCA, ####[facility] ([id number])[address] [place] [address] 02537 CBC AND AUTO DIFFon 07-17-20 ABSOLUTE BASOPHIL 0.2 X10E9/L Normal 0.0-0.2 [facility] Comment on above: Performed By: #### C BCA, CMP, , 1988-02 ####[facility] ([id number])[address] [place] [address] 60437 ABSOLUTE NEUTROPHIL 9.2 X10E9/L High 1.5-6.6 [facility] Comment on above: Performed By: #### C BCA, CMP, , 1988-02 ####[facility] ([id number])[address] [place] [address] 93489 Basophils/100 WBC (Bld) 1.2 % Normal [facility] Comment on above: Performed By: #### Darian ESCOBAR [facility], 1988-02 ####[facility] ([id number])[address] [place] [address] 55805 Eosinophils (Bld) [#/Vol] 0.3 10*3/uL Normal 0.0-0.4 [facility] Comment on above: Performed By: #### Darian ESCOBAR [facility], 1988-02 ####[facility] ([id number])[address] [place] [address] 30347 Eosinophils/100 WBC (Bld) 2.3 % Normal [facility] Comment on above: Performed By: #### Darian ESCOBAR [facility], 1988-02 ####[facility] ([id number])[address] [place] [address] 47163 Erythrocyte distribution width (RBC) [Ratio] 14.4 % Normal 11.5-15.0 [facility] Comment on above: Performed By: #### Darian ESCOBAR [facility], 1988-02 ####[facility] ([id number])[address] [place] [address] 22755 Hematocrit (Bld) [Volume fraction] 31.2 % Low 35-47 [facility] Comment on above: Performed By: #### Darian ESCOBAR CMP, 1988-02 ####[facility] ([id number])[address] [place] [address] 49561 Hemoglobin (Bld) [Mass/Vol] 9.8 g/dL Low 11.7-15.5 [facility] Comment on above: Performed By: #### Darian ESCOBAR CMP, 1988-02 ####[facility] ([id number])[address] [place] [address] 76138 Lymphocytes (Bld) [#/Vol] 1.9 10*3/uL Normal 1.0-3.5 [facility] Comment on above: Performed By: #### Darian ESCOBAR [facility], , 1988-02 ####[facility] ([id number])[address] [place] [address] 30601 Lymphocytes/100 WBC (Bld) 15.3 % Normal [facility] Comment on above: Performed By: #### Darian ESCOBAR [facility], , 1988-02 ####[facility] ([id number])[address] [place] [address] 37506 MCH (RBC) [Entitic mass] 29.6 pg Normal 27-34 [facility] Comment on above: Performed By: #### Darian ESCOBAR [facility], , 1988-02 ####[facility] ([id number])[address] [place] [address] 47004 MCHC (RBC) [Mass/Vol] 31.6 g/dL Low 32-36 [facility] Comment on above: Performed By: #### Darian ESCOBAR [facility], , 1988-02 ####[facility] ([id number])[address] [place] [address] 84869 MCV (RBC) [Entitic vol] 94 fL Normal 80-100 [facility] Comment on above: Performed By: #### Darian ESCOBAR [facility], , 1988-02 ####[facility] ([id number])[address] [place] [address] 47257 Monocytes (Bld) [#/Vol] 1.0 10*3/uL High 0-0.9 [facility] Comment on above: Performed By: #### Darian ESCOBAR CMP, , 1988-02 ####[facility] ([id number])[address] [place] [address] 32514 Monocytes/100 WBC (Bld) 8.0 % Normal [facility] Comment on above: Performed By: #### Darian ESCOBAR [facility], , 1988-02 ####[facility] ([id number])[address] [place] [address] 49844 Neutrophils/100 WBC (Bld) 73.2 % Normal [facility] Comment on above: Performed By: #### Darian ESCOBAR [facility], , 1988-02 ####[facility] ([id number])[address] [place] [address] 47951 Platelet mean volume (Bld) [Entitic vol] 8.6 fL Normal 7-12 [facility] Comment on above: Performed By: #### Darian ESCOBAR [facility], 1988-02 ####[facility] ([id number])[address] [place] [address] 59033 Platelets (Bld) [#/Vol] 435 10*3/uL Normal 150-450 [facility] Comment on above: Performed By: #### Darian ESCOBAR [facility], , 1988-02 ####[facility] ([id number])[address] [place] [address] 21776 RBC COUNT 3.33 X10E12/L Low 3.80-5.20 [facility] Comment on above: Performed By: #### Darian ESCOBAR [facility], 1988-02 ####[facility] ([id number])[address] [place] [address] 87365 WBC (Bld) [#/Vol] 12.5 10*3/uL High 4.0-11.0 [facility] Comment on above: Performed By: #### Darian ESCOBAR [facility], 1988-02 ####[facility] ([id number])[address] [place] [address] [place] [address] COMPREHENSIVE METABOLIC PANE Charles 07-17-2024 Albumin [Mass/Vol] 2.5 g/dL Low 3.2-5.3 [facility] Comment on above: Performed By: #### C SHAWN CMP, , 1988-02 ####[facility] ([id number])[address] [place] [address] [place] [address] ALP [Catalytic activity/Vol] 75 U/L Normal 39-130 [facility] Comment on above: Performed By: #### C SHAWN CMP, , 1988-02 ####[facility] ([id number])[address] [place] [address] 82293 ALT [Catalytic activity/Vol] 11 U/L Normal 0-31 [facility] Comment on above: Performed By: #### Darian ESCOBAR CMP, , 1988-02 ####[facility] ([id number])[address] [place] [address] 58057 Anion gap [Moles/Vol] 10 mmol/L Normal 5-15 [facility] Comment on above: Performed By: #### Darian ESCOBAR CMP, , 1988-02 ####[facility] ([id number])[address] [place] [address] 44655 AST [Catalytic activity/Vol] 16 U/L Normal 0-41 [facility] Comment on above: Performed By: #### C SHAWN CMP, , 1988-02 ####[facility] ([id number])[address] [place] [address] 82335 Bilirubin [Mass/Vol] 0.4 mg/dL Normal 0.3-1.2 [facility] Comment on above: Performed By: #### C SHAWN CMP, , 1988-02 ####[facility] ([id number])[address] [place] [address] 68814 Calcium [Mass/Vol] 8.3 mg/dL Low 8.5-10.5 [facility] Comment on above: Performed By: #### C SHAWN [facility], , 1988-02 ####[facility] ([id number])[address] [place] [address] 64073 Chloride [Moles/Vol] 99 mmol/L Normal 98-109 [facility] Comment on above: Performed By: #### C SHAWN [facility], 1988-02 ####[facility] ([id number])[address] [place] [address] 81475 CO2 [Moles/Vol] 28 mmol/L Normal 22-32 [facility] Comment on above: Performed By: #### C SHAWN [facility], 1988-02 ####[facility] ([id number])[address] [place] [address] 30999 Creatinine [Mass/Vol] 0.62 mg/dL Normal 0.40-1.00 [facility] Comment on above: Result Comment: METH OD TRACEABLE TO IDMS STANDARD Performed By: #### C SHAWN [facility], 1988-02 ####[facility] ([id number])[address] [place] [address] 01092 eGFR (CKD-EPI) NON-RACE DEPENDENT >90 Normal >59 [facility] Comment on above: Result Comment: Repo rted eGFR is based on theCKD-EPI 2020 equation that doesnot use a race coefficient. Performed By: #### C SHAWN [facility], 1988-02 ####[facility] ([id number])[address] [place] [address] 86682 Glucose [Mass/Vol] 151 mg/dL High 65-99 [facility] Comment on above: Performed By: #### C SHAWN [facility], 1988-02 ####[facility] ([id number])[address] [place] [address], [place] [address] Potassium [Moles/Vol] 3.9 mmol/L Normal 3.5-5.0 [facility] Comment on above: Performed By: #### C SHAWN [facility], 1988-02 ####[facility] ([id number])[address] [place] [address] [place] [address] Protein [Mass/Vol] 7.5 g/dL Normal 6.0-8.0 [facility] Comment on above: Performed By: #### C SHAWN [facility], 1988-02 ####[facility] ([id number])[address] [place] [address] 24169 Sodium [Moles/Vol] 137 mmol/L Normal 134-146 [facility] Comment on above: Performed By: #### Darian ESCOBAR [facility], 1988-02 ####[facility] ([id number])[address] [place] [address] [place] [address] Urea nitrogen [Mass/Vol] 10 mg/dL Normal 5-23 [facility] Comment on above: Performed By: #### C SHAWN [facility], 1988-02 ####[facility] ([id number])[address] [place] [address] [place] [address] CRP [Mass/Vol]on 07-17-2024 C REACTIVE PROTEIN 17.2 mg/dL High 0.000-0.7 4 4 [facility] Comment on above: Performed By: #### C SHAWN [facility], 1988-02 ####[facility] ([id number])[address] [place] [address] 58047 MAGNESIUMon 07-17-2024 Magnesium [Mass/Vol] 2.0 mg/dL Normal 1.8-2.6 [facility] Comment on above: Performed By: #### C ALONDRA ESCOBAR, , 1988-02 ####[facility] ([id number])[address] [place] [address] 23858 CBC AND AUTO DIFFon 07-16-20 24 ABSOLUTE BASOPHIL 0.2 X10E9/L Normal 0.0-0.2 [facility] Comment on above: Performed By: #### C SHAWN, CMP, ####[facility] ([id number])[address] [place] [address] 40294 ABSOLUTE NEUTROPHIL 10.9 X10E9/L High 1.5-6.6 [facility] Comment on above: Performed By: #### Darian ESCOBAR CMP, ####[facility] ([id number])[address] [place] [address] 00762 Basophils/100 WBC (Bld) 1.2 % Normal [facility] Comment on above: Performed By: #### Darian ESCOBAR, [facility], ####[facility] ([id number])[address] [place] [address] 19536 Eosinophils (Bld) [#/Vol] 0.2 10*3/uL Normal 0.0-0.4 [facility] Comment on above: Performed By: #### Darian ESCOBAR, CMP, ####[facility] ([id number])[address] [place] [address] 24042 Eosinophils/100 WBC (Bld) 1.5 % Normal [facility] Comment on above: Performed By: #### Darian ESCOBAR, CMP, ####[facility] ([id number])[address] [place] [address] 24508 Erythrocyte distribution width (RBC) [Ratio] 14.3 % Normal 11.5-15.0 [facility] Comment on above: Performed By: #### Darian BCA, CMP, ####[facility] ([id number])[address] [place] [address] 80685 Hematocrit (Bld) [Volume fraction] 31.3 % Low 35-47 [facility] Comment on above: Performed By: #### Darian ESCOBAR CMP, ####[facility] ([id number])[address] [place] [address] 49880 Hemoglobin (Bld) [Mass/Vol] 10.0 g/dL Low 11.7-15.5 [facility] Comment on above: Performed By: #### Darian ESCOBAR CMP, ####[facility] ([id number])[address] [place] [address] 96012 Lymphocytes (Bld) [#/Vol] 1.8 10*3/uL Normal 1.0-3.5 [facility] Comment on above: Performed By: #### Darian ESCOBAR CMP, ####[facility] ([id number])[address] [place] [address] 60792 Lymphocytes/100 WBC (Bld) 12.5 % Normal [facility] Comment on above: Performed By: #### Darian ESCOBAR [facility], ####[facility] ([id number])[address] [place] [address] 24965 MCH (RBC) [Entitic mass] 29.7 pg Normal 27-34 [facility] Comment on above: Performed By: #### Darian ESCOBAR CMP, ####[facility] ([id number])[address] [place] [address] 10671 MCHC (RBC) [Mass/Vol] 31.9 g/dL Low 32-36 [facility] Comment on above: Performed By: #### Darian ESCOBAR CMP, ####[facility] ([id number])[address] [place] [address] 02726 MCV (RBC) [Entitic vol] 93 fL Normal 80-100 [facility] Comment on above: Performed By: #### Darian ESCOBAR CMP, ####[facility] ([id number])[address] [place] [address] 28477 Monocytes (Bld) [#/Vol] 1.0 10*3/uL High 0-0.9 [facility] Comment on above: Performed By: #### Darian ESCOBAR CMP, ####[facility] ([id number])[address] [place] [address] 90790 Monocytes/100 WBC (Bld) 7.4 % Normal [facility] Comment on above: Performed By: #### Darian ESCOBAR CMP, ####[facility] ([id number])[address] [place] [address] 01871 Neutrophils/100 WBC (Bld) 77.4 % Normal [facility] Comment on above: Performed By: #### Darian ESCOBAR CMP, ####[facility] ([id number])[address] [place] [address] 23090 Platelet mean volume (Bld) [Entitic vol] 8.6 fL Normal 7-12 [facility] Comment on above: Performed By: #### Darian ESCOBAR CMP, ####[facility] ([id number])[address] [place] [address] 10827 Platelets (Bld) [#/Vol] 407 10*3/uL Normal 150-450 [facility] Comment on above: Performed By: #### Darian ESCOBAR CMP, ####[facility] ([id number])[address] [place] [address] 69303 RBC COUNT 3.36 X10E12/L Low 3.80-5.20 [facility] Comment on above: Performed By: #### C BCA, CMP, ####[facility] ([id number])[address] [place] [address] 62442 WBC (Bld) [#/Vol] 14.1 10*3/uL High 4.0-11.0 [facility] Comment on above: Performed By: #### C BCA, CMP, ####[facility] ([id number])[address] [place] [address] 36207 COMPREHENSIVE METABOLIC PANE Charles 07-16-2024 Albumin [Mass/Vol] 2.6 g/dL Low 3.2-5.3 [facility] Comment on above: Performed By: #### C BCA, CMP, ####[facility] ([id number])[address] [place] [address] 22324 ALP [Catalytic activity/Vol] 79 U/L Normal 39-130 [facility] Comment on above: Performed By: #### C BCA, CMP, 50485-5 ####[facility] ([id number])[address] [place] [address] 66007 ALT [Catalytic activity/Vol] 13 U/L Normal 0-31 [facility] Comment on above: Performed By: #### C BCA, CMP, ####[facility] ([id number])[address] [place] [address] 26377 Anion gap [Moles/Vol] 8 mmol/L Normal 5-15 [facility] Comment on above: Performed By: #### C BCA, CMP, ####[facility] ([id number])[address] [place] [address] 32496 AST [Catalytic activity/Vol] 15 U/L Normal 0-41 [facility] Comment on above: Performed By: #### C BCA, CMP, ####[facility] ([id number])[address] [place] [address] 96722 Bilirubin [Mass/Vol] 0.5 mg/dL Normal 0.3-1.2 [facility] Comment on above: Performed By: #### C ALONDRA ESCOBAR, ####[facility] ([id number])[address] [place] [address] 28947 Calcium [Mass/Vol] 8.4 mg/dL Low 8.5-10.5 [facility] Comment on above: Performed By: #### C ALONDRA ESCOBAR, ####[facility] ([id number])[address] [place] [address] 78414 Chloride [Moles/Vol] 99 mmol/L Normal 98-109 [facility] Comment on above: Performed By: #### C SHAWN [facility], ####[facility] ([id number])[address] [place] [address] 08213 CO2 [Moles/Vol] 29 mmol/L Normal 22-32 [facility] Comment on above: Performed By: #### C SHAWN [facility], ####[facility] ([id number])[address] [place] [address] 04231 Creatinine [Mass/Vol] 0.54 mg/dL Normal 0.40-1.00 [facility] Comment on above: Result Comment: METH OD TRACEABLE TO IDMS STANDARD Performed By: #### C ALONDRA ESCOBAR, ####[facility] ([id number])[address] [place] [address] 39778 eGFR (CKD-EPI) NON-RACE DEPENDENT >90 Normal >59 [facility] Comment on above: Result Comment: Repo rted eGFR is based on theCKD-EPI 2020 equation that doesnot use a race coefficient. Performed By: #### C ALONDRA ESCOBAR, ####[facility] ([id number])[address] [place] [address], [place] [address] Glucose [Mass/Vol] 155 mg/dL High 65-99 [facility] Comment on above: Performed By: #### C SHAWN CMP, ####[facility] ([id number])[address] [place] [address] [place] [address] Potassium [Moles/Vol] 3.8 mmol/L Normal 3.5-5.0 [facility] Comment on above: Performed By: #### C ALONDRA ESCOBAR, ####[facility] ([id number])[address] [place] [address] [place] [address] Protein [Mass/Vol] 7.3 g/dL Normal 6.0-8.0 [facility] Comment on above: Performed By: #### Darian ESCOBAR CMP, ####[facility] ([id number])[address] [place] [address] [place] [address] Sodium [Moles/Vol] 136 mmol/L Normal 134-146 [facility] Comment on above: Performed By: #### C ALONDRA ESCOBAR, ####[facility] ([id number])[address] [place] [address] [place] [address] Urea nitrogen [Mass/Vol] 9 mg/dL Normal 5-23 [facility] Comment on above: Performed By: #### C SHAWN CMP, ####[facility] ([id number])[address] [place] [address] [place] [address] MAGNESIUMon 07-16-2024 Magnesium [Mass/Vol] 2.0 mg/dL Normal 1.8-2.6 [facility] Comment on above: Performed By: #### C SHAWN CMP, ####[facility] ([id number])[address] [place] [address] [place] [address] POTASSIUMon 07-16-2024 Potassium [Moles/Vol] 4.5 mmol/L Normal 3.5-5.0 [facility] Comment on above: Performed By: #### 2 823-3, 4092-3 ####[facility] ([id number])[address] [place] [address] 33296 Vancomycin trough [Mass/Vol] on 07-16-2024 VANCOMYCIN TROUGH 17.8 ug/mL Normal 5.0-20.0 [facility] Comment on above: Performed By: #### 2 823-3, 4092-3 ####[facility] ([id number])[address] [place] [address] 78174 CBC AND AUTO DIFFon 07-15-20 24 Eosinophils (Bld) [#/Vol] 0.3 10*3/uL Normal 0.0-0.4 [facility] Comment on above: Performed By: #### C MELISA, CBCA, 1988-02 ####[facility] ([id number])[address] [place] [address] 48393 Eosinophils/100 WBC (Bld) 2.0 % Normal [facility] Comment on above: Performed By: #### C MELISA, CBCA, 1988-02 ####[facility] ([id number])[address] [place] [address] 45941 Erythrocyte distribution width (RBC) [Ratio] 14.5 % Normal 11.5-15.0 [facility] Comment on above: Performed By: #### C MELISA, CBCA, 1988-02 ####[facility] ([id number])[address] [place] [address] 24055 Hematocrit (Bld) [Volume fraction] 31.6 % Low 35-47 [facility] Comment on above: Performed By: #### C MP, CBCA, 1988-02 ####[facility] ([id number])[address] [place] [address] 08174 Hemoglobin (Bld) [Mass/Vol] 10.1 g/dL Low 11.7-15.5 [facility] Comment on above: Performed By: #### C MELISA, CBCA, 1988-02 ####[facility] ([id number])[address] [place] [address] 37538 Lymphocytes (Bld) [#/Vol] 2.3 10*3/uL Normal 1.0-3.5 [facility] Comment on above: Performed By: #### C MELISA, CBCA, 1988-02 ####[facility] ([id number])[address] [place] [address] 62202 Lymphocytes/100 WBC (Bld) 16.0 % Normal [facility] Comment on above: Performed By: #### C MELISA, CBCA, 1988-02 ####[facility] ([id number])[address] [place] [address] 86710 MCH (RBC) [Entitic mass] 29.9 pg Normal 27-34 [facility] Comment on above: Performed By: #### C MELISA, CBCA, 1988-02 ####[facility] ([id number])[address] [place] [address] 30219 MCHC (RBC) [Mass/Vol] 32.0 g/dL Normal 32-36 [facility] Comment on above: Performed By: #### C MELISA, CBCA, 1988-02 ####[facility] ([id number])[address] [place] [address] 84561 MCV (RBC) [Entitic vol] 93 fL Normal 80-100 [facility] Comment on above: Performed By: #### C MELISA, CBCA, 1988-02 ####[facility] ([id number])[address] [place] [address] 96034 Monocytes (Bld) [#/Vol] 1.2 10*3/uL High 0-0.9 [facility] Comment on above: Performed By: #### C MELISA CBCBahman, 1988-02 ####[facility] ([id number])[address] [place] [address] 90993 Monocytes/100 WBC (Bld) 8.0 % Normal [facility] Comment on above: Performed By: #### C MELISA CBCBahman, 1988-02 ####[facility] ([id number])[address] [place] [address] 08984 MYELOCYTE 2.0 % Normal [facility] Comment on above: Performed By: #### C MELISA CBCBahman, 1988-02 ####[facility] ([id number])[address] [place] [address] 49902 Neutrophils (Bld) [#/Vol] 10.3 10*3/uL High 1.5-6.6 [facility] Comment on above: Performed By: #### C MELISA CBCBahman, 1988-02 ####[facility] ([id number])[address] [place] [address] 29623 Platelet mean volume (Bld) [Entitic vol] 8.3 fL Normal 7-12 [facility] Comment on above: Performed By: #### C MELISA CBCBahman, 1988-02 ####[facility] ([id number])[address] [place] [address] 36093 Platelets (Bld) [#/Vol] 364 10*3/uL Normal 150-450 [facility] Comment on above: Performed By: #### C MP, CBCA, 1988-02 ####[facility] ([id number])[address] [place] [address] 31496 RBC COUNT 3.39 X10E12/L Low 3.80-5.20 [facility] Comment on above: Performed By: #### C MELISA CBCBahman, 1988-02 ####[facility] ([id number])[address] [place] [address] 92558 RBC morphology finding Nom (Bld) NORMAL Normal [facility] Comment on above: Performed By: #### C MELISA CBCBahman, 1988-02 ####[facility] ([id number])[address] [place] [address] 93733 SEG NEUTROPHIL 72.0 % Normal [facility] Comment on above: Performed By: #### C MELISA CBCBahman, 1988-02 ####[facility] ([id number])[address] [place] [address] 04096 WBC (Bld) [#/Vol] 14.4 10*3/uL High 4.0-11.0 [facility] Comment on above: Performed By: #### C MELISA CBCBahman, 1988-02 ####[facility] ([id number])[address] [place] [address] 70948 COMPREHENSIVE METABOLIC PANE Charles 07-15-2024 Albumin [Mass/Vol] 2.5 g/dL Low 3.2-5.3 [facility] Comment on above: Performed By: #### C MELISA CBCBahman, 1988-02 ####[facility] ([id number])[address] [place] [address] 56102 ALP [Catalytic activity/Vol] 84 U/L Normal 39-130 [facility] Comment on above: Performed By: #### C MELISA CBCA, , 1988-02 ####[facility] ([id number])[address] [place] [address] 48706 ALT [Catalytic activity/Vol] 16 U/L Normal 0-31 [facility] Comment on above: Performed By: #### C PAMELA VINCENT, , 1988-02 ####[facility] ([id number])[address] [place] [address] 08892 Anion gap [Moles/Vol] 9 mmol/L Normal 5-15 [facility] Comment on above: Performed By: #### C PAMELA VINCENT, , 1988-02 ####[facility] ([id number])[address] [place] [address] [phone] AST [Catalytic activity/Vol] 15 U/L Normal 0-41 [facility] Comment on above: Performed By: #### PAMELA Farmer MP, , 1988-02 ####[facility] ([id number])[address] [place] [address] 96097 Bilirubin [Mass/Vol] 0.6 mg/dL Normal 0.3-1.2 [facility] Comment on above: Performed By: #### PAMELA Farmer MP, 1988-02 ####[facility] ([id number])[address] [place] [address] 22580 Calcium [Mass/Vol] 8.4 mg/dL Low 8.5-10.5 [facility] Comment on above: Performed By: #### C PAMELA VINCENT, 1988-02 ####[facility] ([id number])[address] [place] [address] 58858 Chloride [Moles/Vol] 98 mmol/L Normal 98-109 [facility] Comment on above: Performed By: #### C PAMELA VINCENT, 1988-02 ####[facility] ([id number])[address] [place] [address] 95838 CO2 [Moles/Vol] 30 mmol/L Normal 22-32 [facility] Comment on above: Performed By: #### C PAMELA VINCENT, 1988-02 ####[facility] ([id number])[address] [place] [address] 67689 Creatinine [Mass/Vol] 0.59 mg/dL Normal 0.40-1.00 [facility] Comment on above: Result Comment: METH OD TRACEABLE TO IDMS STANDARD Performed By: #### C PAMELA VINCENT, , 1988-02 ####[facility] ([id number])[address] [place] [address] 19195 eGFR (CKD-EPI) NON-RACE DEPENDENT >90 Normal >59 [facility] Comment on above: Result Comment: Repo rted eGFR is based on theCKD-EPI 2020 equation that doesnot use a race coefficient. Performed By: #### C PAMELA VINCENT, 1988-02 ####[facility] ([id number])[address] [place] [address] 27564 Glucose [Mass/Vol] 119 mg/dL High 65-99 [facility] Comment on above: Performed By: #### C PAMELA VINCENT, 1988-02 ####[facility] ([id number])[address] [place] [address] 97028 Potassium [Moles/Vol] 4.1 mmol/L Normal 3.5-5.0 [facility] Comment on above: Performed By: #### C PAMELA VINCENT, 1988-02 ####[facility] ([id number])[address] [place] [address] 76470 Protein [Mass/Vol] 7.0 g/dL Normal 6.0-8.0 [facility] Comment on above: Performed By: #### C PAMELA VINCENT, 1988-02 ####[facility] ([id number])[address] [place] [address] 71994 Sodium [Moles/Vol] 137 mmol/L Normal 134-146 [facility] Comment on above: Performed By: #### C PAMELA VINCENT, , 1988-02 ####[facility] ([id number])[address] [place] [address] 38024 Urea nitrogen [Mass/Vol] 9 mg/dL Normal 5-23 [facility] Comment on above: Performed By: #### C PAMELA VINCENT, 1988-02 ####[facility] ([id number])[address] [place] [address] 87432 CRP [Mass/Vol]on 07-15-2024 C REACTIVE PROTEIN 19.5 mg/dL High 0.000-0.7 4 4 [facility] Comment on above: Performed By: #### C PAMELA VINCENT, 1988-02 ####[facility] ([id number])[address] [place] [address] 29136 MAGNESIUMon 07-15-2024 Magnesium [Mass/Vol] 2.1 mg/dL Normal 1.8-2.6 [facility] Comment on above: Performed By: #### C PAMELA VINCENT, 1988-02 ####[facility] ([id number])[address] [place] [address] 66134 MR LOWER LEG RT W WO CONTon 07-15-2024 MR LOWER LEG RT W WO CONT Normal [facility] MR THIGH RT W WO CONTon 06-28 MR THIGH RT W WO CONT Normal [facility] URINALYSISon 07-15-2024 Bilirubin Ql (U) Negative Normal NEG [facility] Comment on above: Performed By: #### U A ####[facility] ([id number])[address] [place] [address] [place] [address] BLOOD/HGB Negative Normal NEG [facility] Comment on above: Performed By: #### U A ####[facility] ([id number])[address] [place] [address] [place] [address] Color (U) YELLOW Normal YELLOW [facility] Comment on above: Performed By: #### U A ####[facility] ([id number])[address] [place] [address] [place] [address] Glucose Ql (U) Negative Normal NEG [facility] Comment on above: Performed By: #### U A ####[facility] ([id number])[address] [place] [address] [place] [address] Ketones Ql (U) Negative Normal NEG [facility] Comment on above: Performed By: #### U A ####[facility] ([id number])[address] [place] [address] [place] [address] Leukocyte esterase Test strip Ql (U) Negative Normal NEG [facility] Comment on above: Performed By: #### U A ####[facility] ([id number])[address] [place] [address] [place] [address] Nitrite Ql (U) Negative Normal NEG [facility] Comment on above: Performed By: #### U A ####[facility] ([id number])[address] [place] [address], [place] [address] pH (U) 7.0 [pH] Normal 5.0-8.5 [facility] Comment on above: Performed By: #### U A ####[facility] ([id number])[address] [place] [address] [place] [address] Protein Ql (U) Negative Normal NEG [facility] Comment on above: Performed By: #### U A ####[facility] ([id number])[address] [place] [address] 15588 Specific gravity (U) [Rel density] 1.015 Normal 1.003-1.03 5 [facility] Comment on above: Performed By: #### U A ####[facility] ([id number])[address] [place] [address] 94942 TURBIDITY CLEAR Normal CLEAR [facility] Comment on above: Performed By: #### U A ####[facility] ([id number])[address] [place] [address] 84081 Urobilinogen Qn (U) 0.2 {Danielle'U}/dL Normal <1.1 [facility] Comment on above: Performed By: #### U A ####[facility] ([id number])[address] [place] [address] 12116 URINE CULTUREon 07-15-2024 Bacteria identified Cx Nom (U) CULTURE RESULTS NO GROWTH AT <1000 CFU/mL Normal [facility] Comment on above: Performed By: #### 6 30-4 ####[facility] ([id number])[address] [facility], [address] [place] [address] CBC AND AUTO DIFFon 07-14-20 24 Eosinophils (Bld) [#/Vol] 0.3 10*3/uL Normal 0.0-0.4 [facility] Comment on above: Performed By: #### C BCA, CMP, 37907-9, 61607-8 ####[facility] ([id number])[address] [place] [address] 08772 Eosinophils/100 WBC (Bld) 2.0 % Normal [facility] Comment on above: Performed By: #### C BCA, CMP, 62148-9, 13848-4 ####[facility] ([id number])[address] [place] [address] 44370 Erythrocyte distribution width (RBC) [Ratio] 14.4 % Normal 11.5-15.0 [facility] Comment on above: Performed By: #### C BCA, CMP, , 51285-4 ####[facility] ([id number])[address] [place] [address] 41884 Hematocrit (Bld) [Volume fraction] 32.0 % Low 35-47 [facility] Comment on above: Performed By: #### C BCA, CMP, , 79996-4 ####[facility] ([id number])[address] [place] [address] 84097 Hemoglobin (Bld) [Mass/Vol] 10.3 g/dL Low 11.7-15.5 [facility] Comment on above: Performed By: #### Darian BCA, CMP, , 84333-0 ####[facility] ([id number])[address] [place] [address] 95319 Lymphocytes (Bld) [#/Vol] 2.2 10*3/uL Normal 1.0-3.5 [facility] Comment on above: Performed By: #### C BCA, CMP, , 83002-3 ####[facility] ([id number])[address] [place] [address] 55340 Lymphocytes/100 WBC (Bld) 17.0 % Normal [facility] Comment on above: Performed By: #### C BCA, CMP, , 16123-6 ####[facility] ([id number])[address] [place] [address] 08479 MCH (RBC) [Entitic mass] 30.3 pg Normal 27-34 [facility] Comment on above: Performed By: #### Darian BCA, CMP, , 69125-9 ####[facility] ([id number])[address] [place] [address] 49353 MCHC (RBC) [Mass/Vol] 32.3 g/dL Normal 32-36 [facility] Comment on above: Performed By: #### C SHAWN, CMP, 28591-2, 90945-1 ####[facility] ([id number])[address] [place] [address] 70037 MCV (RBC) [Entitic vol] 94 fL Normal 80-100 [facility] Comment on above: Performed By: #### C SHAWN, CMP, , 18266-4 ####[facility] ([id number])[address] [place] [address] 30667 Monocytes (Bld) [#/Vol] 0.3 10*3/uL Normal 0-0.9 [facility] Comment on above: Performed By: #### Darian ESCOBAR, CMP, , 21130-0 ####[facility] ([id number])[address] [place] [address] 53902 Monocytes/100 WBC (Bld) 2.0 % Normal [facility] Comment on above: Performed By: #### Darian BCA, CMP, , 38629-9 ####[facility] ([id number])[address] [place] [address] 87325 Neutrophils (Bld) [#/Vol] 10.4 10*3/uL High 1.5-6.6 [facility] Comment on above: Performed By: #### Darian BCA, CMP, , 01395-9 ####[facility] ([id number])[address] [place] [address] 75340 Platelet mean volume (Bld) [Entitic vol] 8.7 fL Normal 7-12 [facility] Comment on above: Performed By: #### Darian BCA, CMP, , 65982-7 ####[facility] ([id number])[address] [place] [address] 13930 Platelets (Bld) [#/Vol] 336 10*3/uL Normal 150-450 [facility] Comment on above: Performed By: #### C BCA, CMP, 35454-8, 40392-9 ####[facility] ([id number])[address] [place] [address] 40299 RBC COUNT 3.41 X10E12/L Low 3.80-5.20 [facility] Comment on above: Performed By: #### C BCA, CMP, 36499-8, 09378-8 ####[facility] ([id number])[address] [place] [address] 04395 RBC morphology finding Nom (Bld) REVIEWED Normal [facility] Comment on above: Performed By: #### C BCA, CMP, , 32883-1 ####[facility] ([id number])[address] [place] [address] 46600 SEG NEUTROPHIL 79.0 % Normal [facility] Comment on above: Performed By: #### C BCA, CMP, , 78858-9 ####[facility] ([id number])[address] [place] [address] 18212 WBC (Bld) [#/Vol] 13.2 10*3/uL High 4.0-11.0 [facility] Comment on above: Performed By: #### C BCA, CMP, , 25482-7 ####[facility] ([id number])[address] [place] [address] 95069 COMPREHENSIVE METABOLIC PANE Charles 07-14-2024 Albumin [Mass/Vol] 2.6 g/dL Low 3.2-5.3 [facility] Comment on above: Performed By: #### C BCA, CMP, , 02255-5 ####[facility] ([id number])[address] [place] [address] [place] [address] ALP [Catalytic activity/Vol] 94 U/L Normal 39-130 [facility] Comment on above: Performed By: #### C BCA, CMP, 59049-2, 23154-9 ####[facility] ([id number])[address] [place] [address] 83757 ALT [Catalytic activity/Vol] 21 U/L Normal 0-31 [facility] Comment on above: Performed By: #### C BCA, CMP, 71730-8, 49674-1 ####[facility] ([id number])[address] [place] [address] 35785 Anion gap [Moles/Vol] 9 mmol/L Normal 5-15 [facility] Comment on above: Performed By: #### C BCA, CMP, , 17503-3 ####[facility] ([id number])[address] [place] [address] 70843 AST [Catalytic activity/Vol] 20 U/L Normal 0-41 [facility] Comment on above: Performed By: #### C BCA, CMP, , 78097-6 ####[facility] ([id number])[address] [place] [address] 60982 Bilirubin [Mass/Vol] 0.7 mg/dL Normal 0.3-1.2 [facility] Comment on above: Performed By: #### C BCA, CMP, , 41297-7 ####[facility] ([id number])[address] [place] [address] 59790 Calcium [Mass/Vol] 8.3 mg/dL Low 8.5-10.5 [facility] Comment on above: Performed By: #### C BCA, CMP, , 81249-5 ####[facility] ([id number])[address] [place] [address] [place] [address] Chloride [Moles/Vol] 99 mmol/L Normal 98-109 [facility] Comment on above: Performed By: #### C ALONDRA ESCOBAR, , 01649-1 ####[facility] ([id number])[address] [place] [address] 66436 CO2 [Moles/Vol] 29 mmol/L Normal 22-32 [facility] Comment on above: Performed By: #### C ALNODRA ESCOBAR, , 70751-2 ####[facility] ([id number])[address] [place] [address] 67210 Creatinine [Mass/Vol] 0.50 mg/dL Normal 0.40-1.00 [facility] Comment on above: Result Comment: METH OD TRACEABLE TO IDMS STANDARD Performed By: #### C ALONDRA ESCOBAR, , 94050-0 ####[facility] ([id number])[address] [place] [address] [place] [address] eGFR (CKD-EPI) NON-RACE DEPENDENT >90 Normal >59 [facility] Comment on above: Result Comment: Repo rted eGFR is based on theCKD-EPI 2020 equation that doesnot use a race coefficient. Performed By: #### C ALONDRA ESCOBAR, , 72512-9 ####[facility] ([id number])[address] [place] [address] [place] [address] Glucose [Mass/Vol] 116 mg/dL High 65-99 [facility] Comment on above: Performed By: #### C ALONDRA ESCOBAR, , 41356-3 ####[facility] ([id number])[address] [place] [address], [place] [address] Potassium [Moles/Vol] 3.9 mmol/L Normal 3.5-5.0 [facility] Comment on above: Performed By: #### C BCA, CMP, , 99266-7 ####[facility] ([id number])[address] [place] [address] 48958 Protein [Mass/Vol] 7.0 g/dL Normal 6.0-8.0 [facility] Comment on above: Performed By: #### C BCA, CMP, , 95494-5 ####[facility] ([id number])[address] [place] [address] 85406 Sodium [Moles/Vol] 137 mmol/L Normal 134-146 [facility] Comment on above: Performed By: #### C BCA, CMP, , 10516-5 ####[facility] ([id number])[address] [place] [address] 10108 Urea nitrogen [Mass/Vol] 8 mg/dL Normal 5-23 [facility] Comment on above: Performed By: #### C BCA, CMP, , 42682-7 ####[facility] ([id number])[address] [place] [address] 92723 MAGNESIUMon 07-14-2024 Magnesium [Mass/Vol] 2.0 mg/dL Normal 1.8-2.6 [facility] Comment on above: Performed By: #### C BCA, CMP, , 12975-6 ####[facility] ([id number])[address] [place] [address] 75648 Natriuretic peptide B [Mass/ Vol]on 07-14-2024 Natriuretic peptide B (Bld) [Mass/Vol] 82 pg/mL Normal <100.0 [facility] Comment on above: Performed By: #### C BCA, CMP, , 30590-0 ####[facility] ([id number])[address] [place] [address] 79017 CBC AND AUTO DIFFon 07-13-20 24 Band form neutrophils/100 WBC (Bld) 2.0 % Normal [facility] Comment on above: Performed By: #### Darian ESCOBAR CMP, ####[facility] ([id number])[address] [place] [address] 32838 Eosinophils (Bld) [#/Vol] 0.8 10*3/uL High 0.0-0.4 [facility] Comment on above: Performed By: #### Darian ESCOBAR [facility], ####[facility] ([id number])[address] [place] [address] 44485 Eosinophils/100 WBC (Bld) 6.0 % Normal [facility] Comment on above: Performed By: #### Darian ESCOBAR CMP, ####[facility] ([id number])[address] [place] [address] 56347 Erythrocyte distribution width (RBC) [Ratio] 14.5 % Normal 11.5-15.0 [facility] Comment on above: Performed By: #### Darian ESCOBAR [facility], ####[facility] ([id number])[address] [place] [address] 02662 Hematocrit (Bld) [Volume fraction] 33.3 % Low 35-47 [facility] Comment on above: Performed By: #### Darian ESCOBAR CMP, ####[facility] ([id number])[address] [place] [address] 81497 Hemoglobin (Bld) [Mass/Vol] 10.7 g/dL Low 11.7-15.5 [facility] Comment on above: Performed By: #### Darian ESCOBAR CMP, ####[facility] ([id number])[address] [place] [address] 05130 LYMPHOCYTE, ATYPICAL 2.0 % Normal [facility] Comment on above: Performed By: #### C SHAWN CMP, ####[facility] ([id number])[address] [place] [address] 86910 Lymphocytes (Bld) [#/Vol] 2.2 10*3/uL Normal 1.0-3.5 [facility] Comment on above: Performed By: #### Darian ESCOBAR CMP, ####[facility] ([id number])[address] [place] [address] 05904 Lymphocytes/100 WBC (Bld) 14.0 % Normal [facility] Comment on above: Performed By: #### Darian ESCOBAR CMP, ####[facility] ([id number])[address] [place] [address] 89032 MCH (RBC) [Entitic mass] 30.0 pg Normal 27-34 [facility] Comment on above: Performed By: #### Darian ESCOBAR CMP, ####[facility] ([id number])[address] [place] [address] 85669 MCHC (RBC) [Mass/Vol] 32.1 g/dL Normal 32-36 [facility] Comment on above: Performed By: #### Darian ESCOBAR CMP, ####[facility] ([id number])[address] [place] [address] 02722 MCV (RBC) [Entitic vol] 94 fL Normal 80-100 [facility] Comment on above: Performed By: #### Darian ESCOBAR, CMP, ####[facility] ([id number])[address] [place] [address] 63378 Metamyelocytes/100 WBC (Bld) 2.0 % Normal [facility] Comment on above: Performed By: #### Darian ESCOBAR CMP, ####[facility] ([id number])[address] [place] [address] [place] [address] Monocytes (Bld) [#/Vol] 0.8 10*3/uL Normal 0-0.9 [facility] Comment on above: Performed By: #### C ALONDRA ESCOBAR, ####[facility] ([id number])[address] [place] [address] 54184 Monocytes/100 WBC (Bld) 6.0 % Normal [facility] Comment on above: Performed By: #### Darian ESCOBAR CMP, ####[facility] ([id number])[address] [place] [address] 38730 MYELOCYTE 2.0 % Normal [facility] Comment on above: Performed By: #### Darian ESCOBAR CMP, ####[facility] ([id number])[address] [place] [address] 77964 Neutrophils (Bld) [#/Vol] 9.0 10*3/uL High 1.5-6.6 [facility] Comment on above: Performed By: #### Darian ESCOBAR [facility], ####[facility] ([id number])[address] [place] [address] 63847 Platelet mean volume (Bld) [Entitic vol] 8.6 fL Normal 7-12 [facility] Comment on above: Performed By: #### Darian ESCOBAR CMP, ####[facility] ([id number])[address] [place] [address] 44125 Platelets (Bld) [#/Vol] 293 10*3/uL Normal 150-450 [facility] Comment on above: Performed By: #### Darian ESCOBAR CMP, ####[facility] ([id number])[address] [place] [address] [place] [address] POLYCHROMASIA 1+ Abnormal NONE [facility] Comment on above: Performed By: #### C BCA, CMP, ####[facility] ([id number])[address] [place] [address] 89146 RBC COUNT 3.56 X10E12/L Low 3.80-5.20 [facility] Comment on above: Performed By: #### C BCA, CMP, ####[facility] ([id number])[address] [place] [address] 91161 SEG NEUTROPHIL 66.0 % Normal [facility] Comment on above: Performed By: #### C BCA, CMP, ####[facility] ([id number])[address] [place] [address] 21479 TOXIC GRANULATION 1+ Abnormal NONE [facility] Comment on above: Performed By: #### C BCA, CMP, ####[facility] ([id number])[address] [place] [address] 47101 WBC (Bld) [#/Vol] 13.4 10*3/uL High 4.0-11.0 [facility] Comment on above: Performed By: #### C BCA, CMP, ####[facility] ([id number])[address] [place] [address] 55297 COMPREHENSIVE METABOLIC PANE Charles 07-13-2024 Albumin [Mass/Vol] 2.7 g/dL Low 3.2-5.3 [facility] Comment on above: Performed By: #### C BCA, CMP, ####[facility] ([id number])[address] [place] [address] 93935 ALP [Catalytic activity/Vol] 103 U/L Normal 39-130 [facility] Comment on above: Performed By: #### C BCA, CMP, ####[facility] ([id number])[address] [place] [address], [place] [address] ALT [Catalytic activity/Vol] 26 U/L Normal 0-31 [facility] Comment on above: Performed By: #### C ALONDRA ESCOBAR, ####[facility] ([id number])[address] [place] [address], [place] [address] Anion gap [Moles/Vol] 10 mmol/L Normal 5-15 [facility] Comment on above: Performed By: #### C ALONDRA ESCOBAR, ####[facility] ([id number])[address] [place] [address] [place] [address] AST [Catalytic activity/Vol] 23 U/L Normal 0-41 [facility] Comment on above: Performed By: #### Darian ESCOBAR CMP, ####[facility] ([id number])[address] [place] [address], [place] [address] Bilirubin [Mass/Vol] 0.6 mg/dL Normal 0.3-1.2 [facility] Comment on above: Performed By: #### C SHAWN [facility], ####[facility] ([id number])[address] [place] [address], [place] [address] Calcium [Mass/Vol] 8.2 mg/dL Low 8.5-10.5 [facility] Comment on above: Performed By: #### Darian ESCOBAR CMP, ####[facility] ([id number])[address] [place] [address], [place] [address] Chloride [Moles/Vol] 100 mmol/L Normal 98-109 [facility] Comment on above: Performed By: #### C SHAWN CMP, ####[facility] ([id number])[address] [place] [address], [place] [address] CO2 [Moles/Vol] 27 mmol/L Normal 22-32 [facility] Comment on above: Performed By: #### C SHAWN [facility], 15316-7 ####[facility] ([id number])[address] [place] [address] 20657 Creatinine [Mass/Vol] 0.55 mg/dL Normal 0.40-1.00 [facility] Comment on above: Result Comment: METH OD TRACEABLE TO IDMS STANDARD Performed By: #### C ALONDRA ESCOBAR, ####[facility] ([id number])[address] [place] [address] 23283 eGFR (CKD-EPI) NON-RACE DEPENDENT >90 Normal >59 [facility] Comment on above: Result Comment: Repo rted eGFR is based on theCKD-EPI 2020 equation that doesnot use a race coefficient. Performed By: #### C ALONDRA ESCOBAR, 03120-8 ####[facility] ([id number])[address] [place] [address] [place] [address] Glucose [Mass/Vol] 123 mg/dL High 65-99 [facility] Comment on above: Performed By: #### C SHAWN [facility], ####[facility] ([id number])[address] [place] [address] 11321 Potassium [Moles/Vol] 3.7 mmol/L Normal 3.5-5.0 [facility] Comment on above: Performed By: #### C SHAWN [facility], ####[facility] ([id number])[address] [place] [address] [place] [address] Protein [Mass/Vol] 6.9 g/dL Normal 6.0-8.0 [facility] Comment on above: Performed By: #### C ALONDRA ESCOBAR, ####[facility] ([id number])[address] [place] [address] 67493 Sodium [Moles/Vol] 137 mmol/L Normal 134-146 [facility] Comment on above: Performed By: #### C ALONDRA ESCOBAR, ####[facility] ([id number])[address] [place] [address] 90723 Urea nitrogen [Mass/Vol] 8 mg/dL Normal 5-23 [facility] Comment on above: Performed By: #### Darian ESCOBAR CMP, ####[facility] ([id number])[address] [place] [address] 30888 CRP [Mass/Vol]on 07-13-2024 C REACTIVE PROTEIN 22.6 mg/dL High 0.000-0.7 4 4 [facility] Comment on above: Performed By: #### 4 , 1988-02 ####[facility] ([id number])[address] [place] [address] 81088 MAGNESIUMon 07-13-2024 Magnesium [Mass/Vol] 2.1 mg/dL Normal 1.8-2.6 [facility] Comment on above: Performed By: #### Darian ESCOBAR CMP, ####[facility] ([id number])[address] [place] [address] 17799 Vancomycin trough [Mass/Vol] on 07-13-2024 VANCOMYCIN TROUGH 11.9 ug/mL Normal 5.0-20.0 [facility] Comment on above: Performed By: #### 4 , 1988-02 ####[facility] ([id number])[address] [place] [address] 61084 CBC AND AUTO DIFFon 07-12-20 24 Eosinophils (Bld) [#/Vol] 0.1 10*3/uL Normal 0.0-0.4 [facility] Comment on above: Performed By: #### Darian ESCOBAR, CMP, ####[facility] ([id number])[address] [place] [address] 88959 Eosinophils/100 WBC (Bld) 1.0 % Normal [facility] Comment on above: Performed By: #### Darian ESCOBAR CMP, ####[facility] ([id number])[address] [place] [address] 51331 Erythrocyte distribution width (RBC) [Ratio] 14.6 % Normal 11.5-15.0 [facility] Comment on above: Performed By: #### Darian ESCOBAR CMP, ####[facility] ([id number])[address] [place] [address] 85806 Hematocrit (Bld) [Volume fraction] 33.3 % Low 35-47 [facility] Comment on above: Performed By: #### Darian ESCOBAR CMP, ####[facility] ([id number])[address] [place] [address] 20029 Hemoglobin (Bld) [Mass/Vol] 10.8 g/dL Low 11.7-15.5 [facility] Comment on above: Performed By: #### Darian ESCOBAR [facility], ####[facility] ([id number])[address] [place] [address] 79138 Lymphocytes (Bld) [#/Vol] 2.7 10*3/uL Normal 1.0-3.5 [facility] Comment on above: Performed By: #### Darian ESCOBAR CMP, ####[facility] ([id number])[address] [place] [address] 04278 Lymphocytes/100 WBC (Bld) 19.4 % Normal [facility] Comment on above: Performed By: #### Darian ESCOBAR CMP, ####[facility] ([id number])[address] [place] [address] 77471 MCH (RBC) [Entitic mass] 30.2 pg Normal 27-34 [facility] Comment on above: Performed By: #### C ALONDRA ESCOBAR, ####[facility] ([id number])[address] [place] [address] 32488 MCHC (RBC) [Mass/Vol] 32.4 g/dL Normal 32-36 [facility] Comment on above: Performed By: #### Darian ESCOBAR CMP, ####[facility] ([id number])[address] [place] [address] 75549 MCV (RBC) [Entitic vol] 93 fL Normal 80-100 [facility] Comment on above: Performed By: #### Darian ESCOBAR CMP, ####[facility] ([id number])[address] [place] [address] 18367 Monocytes (Bld) [#/Vol] 0.9 10*3/uL Normal 0-0.9 [facility] Comment on above: Performed By: #### Darian ESCOBAR [facility], ####[facility] ([id number])[address] [place] [address] 63793 Monocytes/100 WBC (Bld) 6.8 % Normal [facility] Comment on above: Performed By: #### Darian ESCOBAR CMP, ####[facility] ([id number])[address] [place] [address] 37441 Neutrophils (Bld) [#/Vol] 10.0 10*3/uL High 1.5-6.6 [facility] Comment on above: Performed By: #### Darian ESCOBAR CMP, ####[facility] ([id number])[address] [place] [address] 81278 NUCLEATED RBC 1.0 /100 WBC Normal 0.0-1.0 [facility] Comment on above: Performed By: #### Darian ESCOBAR CMP, ####[facility] ([id number])[address] [place] [address] [place] [address] Platelet mean volume (Bld) [Entitic vol] 8.0 fL Normal 7-12 [facility] Comment on above: Performed By: #### Darian ESCOBAR CMP, 01030-9 ####[facility] ([id number])[address] [place] [address] 47124 Platelets (Bld) [#/Vol] 259 10*3/uL Normal 150-450 [facility] Comment on above: Performed By: #### Darian ESCOBAR CMP, ####[facility] ([id number])[address] [place] [address] 77541 RBC COUNT 3.58 X10E12/L Low 3.80-5.20 [facility] Comment on above: Performed By: #### Darian ESCOBAR CMP, ####[facility] ([id number])[address] [place] [address] 96495 SEG NEUTROPHIL 72.8 % Normal [facility] Comment on above: Performed By: #### Darian ESCOBAR CMP, ####[facility] ([id number])[address] [place] [address] [place] [address] TOXIC GRANULATION 2+ Abnormal NONE [facility] Comment on above: Performed By: #### Darian ESCOBAR CMP, ####[facility] ([id number])[address] [place] [address] 10626 WBC (Bld) [#/Vol] 13.8 10*3/uL High 4.0-11.0 [facility] Comment on above: Performed By: #### Darian ESCOBAR CMP, ####[facility] ([id number])[address] [place] [address] 66570 CHLAMYDIA/GC BY PCRon 2023 CHLAMYDIA/GC BY PCR Normal [facility] Comment on above: Performed By: #### C GS ####[facility] ([id number])[address] [place] [address] 43138[facility] ([id number])[address] [facility], [address], [place] [address] COMPREHENSIVE METABOLIC PANE [facility] 07-12-2024 Albumin [Mass/Vol] 2.6 g/dL Low 3.2-5.3 [facility] Comment on above: Performed By: #### C SHAWN CMP, 26845-5 ####[facility] ([id number])[address] [place] [address] 10635 ALP [Catalytic activity/Vol] 119 U/L Normal 39-130 [facility] Comment on above: Performed By: #### C BCA, CMP, 46903-9 ####[facility] ([id number])[address] [place] [address] [place] [address] ALT [Catalytic activity/Vol] 43 U/L High 0-31 [facility] Comment on above: Performed By: #### C BCA, CMP, 35211-6 ####[facility] ([id number])[address] [place] [address] 72559 Anion gap [Moles/Vol] 9 mmol/L Normal 5-15 [facility] Comment on above: Performed By: #### C BCA, CMP, 61796-2 ####[facility] ([id number])[address] [place] [address] 43609 AST [Catalytic activity/Vol] 52 U/L High 0-41 [facility] Comment on above: Performed By: #### C BCA, CMP, 44024-0 ####[facility] ([id number])[address] [place] [address] 62169 Bilirubin [Mass/Vol] 0.7 mg/dL Normal 0.3-1.2 [facility] Comment on above: Performed By: #### C SHAWN [facility], 31559-3 ####[facility] ([id number])[address] [place] [address] 77085 Calcium [Mass/Vol] 8.4 mg/dL Low 8.5-10.5 [facility] Comment on above: Performed By: #### C SHAWN [facility], ####[facility] ([id number])[address] [place] [address] 65721 Chloride [Moles/Vol] 102 mmol/L Normal 98-109 [facility] Comment on above: Performed By: #### C SHAWN [facility], ####[facility] ([id number])[address] [place] [address] 67210 CO2 [Moles/Vol] 28 mmol/L Normal 22-32 [facility] Comment on above: Performed By: #### C SHAWN [facility], 81251-5 ####[facility] ([id number])[address] [place] [address] 70171 Creatinine [Mass/Vol] 0.49 mg/dL Normal 0.40-1.00 [facility] Comment on above: Result Comment: METH OD TRACEABLE TO IDMS STANDARD Performed By: #### C ALONDRA ESCOBAR, ####[facility] ([id number])[address] [place] [address] [place] [address] eGFR (CKD-EPI) NON-RACE DEPENDENT >90 Normal >59 [facility] Comment on above: Result Comment: Repo rted eGFR is based on theCKD-EPI 2020 equation that doesnot use a race coefficient. Performed By: #### C ALONDRA ESCOBAR, ####[facility] ([id number])[address] [place] [address] 52312 Glucose [Mass/Vol] 136 mg/dL High 65-99 [facility] Comment on above: Performed By: #### C SHAWN, CMP, ####[facility] ([id number])[address] [place] [address] 99268 Potassium [Moles/Vol] 3.8 mmol/L Normal 3.5-5.0 [facility] Comment on above: Performed By: #### C SHAWN, CMP, ####[facility] ([id number])[address] [place] [address] 68694 Protein [Mass/Vol] 6.6 g/dL Normal 6.0-8.0 [facility] Comment on above: Performed By: #### C SHAWN CMP, ####[facility] ([id number])[address] [place] [address] 00127 Sodium [Moles/Vol] 139 mmol/L Normal 134-146 [facility] Comment on above: Performed By: #### C SHAWN, CMP, ####[facility] ([id number])[address] [place] [address] 94811 Urea nitrogen [Mass/Vol] 8 mg/dL Normal 5-23 [facility] Comment on above: Performed By: #### C SHAWN CMP, ####[facility] ([id number])[address] [place] [address] 37783 MAGNESIUMon 07-12-2024 Magnesium [Mass/Vol] 2.1 mg/dL Normal 1.8-2.6 [facility] Comment on above: Performed By: #### 2 823-3, ####[facility] ([id number])[address] [place] [address] 60998 Magnesium [Mass/Vol] 1.8 mg/dL Normal 1.8-2.6 [facility] Comment on above: Performed By: #### C BCA, CMP, ####[facility] ([id number])[address] [place] [address] 01496 POTASSIUMon 07-12-2024 Potassium [Moles/Vol] 3.9 mmol/L Normal 3.5-5.0 [facility] Comment on above: Performed By: #### 2 823-3, ####[facility] ([id number])[address] [place] [address] 39319 VAGINITIS PANEL PCRon 2023 VAGINITIS PANEL PCR Normal [facility] Comment on above: Performed By: #### V PPCR ####[facility] ([id number])[address] [place] [address], [address] [address] CBC AND AUTO DIFFon 07-11-20 Erythrocyte distribution width (RBC) [Ratio] 14.2 % Normal 11.5-15.0 [facility] Comment on above: Performed By: #### C SHAWN [facility], ####[facility] ([id number])[address] [place] [address] 19268 Hematocrit (Bld) [Volume fraction] 34.6 % Low 35-47 [facility] Comment on above: Performed By: #### C SHAWN [facility], ####[facility] ([id number])[address] [place] [address] 40242 Hemoglobin (Bld) [Mass/Vol] 11.2 g/dL Low 11.7-15.5 [facility] Comment on above: Performed By: #### C SHAWN [facility], ####[facility] ([id number])[address] [place] [address] 82880 Lymphocytes (Bld) [#/Vol] 1.8 10*3/uL Normal 1.0-3.5 [facility] Comment on above: Performed By: #### C ALONDRA ESCOBAR, ####[facility] ([id number])[address] [place] [address] 77262 Lymphocytes/100 WBC (Bld) 15.4 % Normal [facility] Comment on above: Performed By: #### C ALONDRA ESCOBAR, ####[facility] ([id number])[address] [place] [address] 94289 MCH (RBC) [Entitic mass] 30.1 pg Normal 27-34 [facility] Comment on above: Performed By: #### Darian ESCOBAR [facility], ####[facility] ([id number])[address] [place] [address] 05219 MCHC (RBC) [Mass/Vol] 32.4 g/dL Normal 32-36 [facility] Comment on above: Performed By: #### Darian ESCOBAR [facility], ####[facility] ([id number])[address] [place] [address] 74404 MCV (RBC) [Entitic vol] 93 fL Normal 80-100 [facility] Comment on above: Performed By: #### Darian ESCOBAR [facility], ####[facility] ([id number])[address] [place] [address] 07743 Metamyelocytes/100 WBC (Bld) 1.9 % Normal [facility] Comment on above: Performed By: #### Darian ESCOBAR [facility], ####[facility] ([id number])[address] [place] [address] 80624 Monocytes (Bld) [#/Vol] 0.8 10*3/uL Normal 0-0.9 [facility] Comment on above: Performed By: #### Darian ESCOBAR CMP, ####[facility] ([id number])[address] [place] [address] 10889 Monocytes/100 WBC (Bld) 6.7 % Normal [facility] Comment on above: Performed By: #### Darian ESCOBAR CMP, ####[facility] ([id number])[address] [place] [address] 61137 MYELOCYTE 2.9 % Normal [facility] Comment on above: Performed By: #### Darian ESCOBAR CMP, ####[facility] ([id number])[address] [place] [address] 87764 Neutrophils (Bld) [#/Vol] 8.8 10*3/uL High 1.5-6.6 [facility] Comment on above: Performed By: #### Darian ESCOBAR CMP, ####[facility] ([id number])[address] [place] [address] 12589 Platelet mean volume (Bld) [Entitic vol] 8.6 fL Normal 7-12 [facility] Comment on above: Performed By: #### Darian ESCOBAR CMP, ####[facility] ([id number])[address] [place] [address] 25693 Platelets (Bld) [#/Vol] 226 10*3/uL Normal 150-450 [facility] Comment on above: Performed By: #### Darian ESCOBAR CMP, ####[facility] ([id number])[address] [place] [address] [place] [address] RBC COUNT 3.72 X10E12/L Low 3.80-5.20 [facility] Comment on above: Performed By: #### Darian ESCOBAR CMP, ####[facility] ([id number])[address] [place] [address] 75988 SEG NEUTROPHIL 73.1 % Normal [facility] Comment on above: Performed By: #### Darian ESCOBAR CMP, ####[facility] ([id number])[address] [place] [address] 65225 WBC (Bld) [#/Vol] 12.0 10*3/uL High 4.0-11.0 [facility] Comment on above: Performed By: #### C BCA, CMP, 36326-3 ####[facility] ([id number])[address] [place] [address] 87147 COMPREHENSIVE METABOLIC PANE [facility] 07-11-2024 Albumin [Mass/Vol] 2.6 g/dL Low 3.2-5.3 [facility] Comment on above: Performed By: #### C BCA, CMP, 81401-4 ####[facility] ([id number])[address] [place] [address] 60399 ALP [Catalytic activity/Vol] 102 U/L Normal 39-130 [facility] Comment on above: Performed By: #### C BCA, CMP, 11632-5 ####[facility] ([id number])[address] [place] [address] 73898 ALT [Catalytic activity/Vol] 40 U/L High 0-31 [facility] Comment on above: Performed By: #### C BCA, CMP, 88741-6 ####[facility] ([id number])[address] [place] [address] 98407 Anion gap [Moles/Vol] 10 mmol/L Normal 5-15 [facility] Comment on above: Performed By: #### C BCA, CMP, 63441-2 ####[facility] ([id number])[address] [place] [address] 99037 AST [Catalytic activity/Vol] 45 U/L High 0-41 [facility] Comment on above: Performed By: #### C BCA, CMP, 31132-6 ####[facility] ([id number])[address] [place] [address], [place] [address] Bilirubin [Mass/Vol] 0.6 mg/dL Normal 0.3-1.2 [facility] Comment on above: Performed By: #### C ALONDRA ESCOBAR, ####[facility] ([id number])[address] [place] [address] 19444 Calcium [Mass/Vol] 8.4 mg/dL Low 8.5-10.5 [facility] Comment on above: Performed By: #### C SHAWN [facility], ####[facility] ([id number])[address] [place] [address] 66008 Chloride [Moles/Vol] 101 mmol/L Normal 98-109 [facility] Comment on above: Performed By: #### C ALONDRA ESCOBAR, ####[facility] ([id number])[address] [place] [address] 85725 CO2 [Moles/Vol] 27 mmol/L Normal 22-32 [facility] Comment on above: Performed By: #### C SHAWN [facility], ####[facility] ([id number])[address] [place] [address] 58906 Creatinine [Mass/Vol] 0.55 mg/dL Normal 0.40-1.00 [facility] Comment on above: Result Comment: METH OD TRACEABLE TO IDMS STANDARD Performed By: #### C ALONDRA ESCOBAR, ####[facility] ([id number])[address] [place] [address] 86656 eGFR (CKD-EPI) NON-RACE DEPENDENT >90 Normal >59 [facility] Comment on above: Result Comment: Repo rted eGFR is based on theCKD-EPI 2020 equation that doesnot use a race coefficient. Performed By: #### C ALONDRA ESCOBAR, ####[facility] ([id number])[address] [place] [address] 13921 Glucose [Mass/Vol] 135 mg/dL High 65-99 [facility] Comment on above: Performed By: #### C ALONDRA ESCOBAR, ####[facility] ([id number])[address] [place] [address] 84768 Potassium [Moles/Vol] 3.8 mmol/L Normal 3.5-5.0 [facility] Comment on above: Performed By: #### C ALONDRA ESCOBAR, ####[facility] ([id number])[address] [place] [address] 10204 Protein [Mass/Vol] 6.5 g/dL Normal 6.0-8.0 [facility] Comment on above: Performed By: #### C ALONDRA ESCOBAR, ####[facility] ([id number])[address] [place] [address] 65893 Sodium [Moles/Vol] 138 mmol/L Normal 134-146 [facility] Comment on above: Performed By: #### C SHAWN [facility], ####[facility] ([id number])[address] [place] [address] 97451 Urea nitrogen [Mass/Vol] 8 mg/dL Normal 5-23 [facility] Comment on above: Performed By: #### C SHAWN [facility], ####[facility] ([id number])[address] [place] [address] [place] [address] [address] ABDOMEN AND PELVIS W CONT on 07-11-2024 CT ABDOMEN AND PELVIS W CONT Normal [facility] MAGNESIUMon 07-11-2024 Magnesium [Mass/Vol] 2.1 mg/dL Normal 1.8-2.6 [facility] Comment on above: Performed By: #### 2 823-3, ####[facility] ([id number])[address] [place] [address] 71299 Magnesium [Mass/Vol] 1.7 mg/dL Low 1.8-2.6 [facility] Comment on above: Performed By: #### C ALONDRA ESCOBAR, ####[facility] ([id number])[address] [place] [address] 77888 POTASSIUMon 07-11-2024 Potassium [Moles/Vol] 4.0 mmol/L Normal 3.5-5.0 [facility] Comment on above: Performed By: #### 2 823-3, 92259-1 ####[facility] ([id number])[address] [place] [address] 27795 CBC AND AUTO DIFFon 07-10-20 24 Band form neutrophils/100 WBC (Bld) 4.0 % Normal [facility] Comment on above: Performed By: #### Darian ESCOBAR CMP, ####[facility] ([id number])[address] [place] [address] 11834 Erythrocyte distribution width (RBC) [Ratio] 14.7 % Normal 11.5-15.0 [facility] Comment on above: Performed By: #### Darian ESCOBAR CMP, ####[facility] ([id number])[address] [place] [address] 79893 Hematocrit (Bld) [Volume fraction] 35.6 % Normal 35-47 [facility] Comment on above: Performed By: #### Darian ESCOBAR CMP, ####[facility] ([id number])[address] [place] [address] 01452 Hemoglobin (Bld) [Mass/Vol] 11.8 g/dL Normal 11.7-15.5 [facility] Comment on above: Performed By: #### Darian ESCOBAR CMP, ####[facility] ([id number])[address] [place] [address] 59089 Lymphocytes (Bld) [#/Vol] 1.5 10*3/uL Normal 1.0-3.5 [facility] Comment on above: Performed By: #### Darian ESCOBAR CMP, ####[facility] ([id number])[address] [place] [address] 11593 Lymphocytes/100 WBC (Bld) 14.0 % Normal [facility] Comment on above: Performed By: #### Darian ESCOBAR [facility], ####[facility] ([id number])[address] [place] [address] 38661 MCH (RBC) [Entitic mass] 30.8 pg Normal 27-34 [facility] Comment on above: Performed By: #### Darian ESCOBAR CMP, ####[facility] ([id number])[address] [place] [address] 47767 MCHC (RBC) [Mass/Vol] 33.2 g/dL Normal 32-36 [facility] Comment on above: Performed By: #### Darian ESCOBAR [facility], ####[facility] ([id number])[address] [place] [address] 64417 MCV (RBC) [Entitic vol] 93 fL Normal 80-100 [facility] Comment on above: Performed By: #### Darian ESCOBAR [facility], ####[facility] ([id number])[address] [place] [address] 88627 Monocytes (Bld) [#/Vol] 1.1 10*3/uL High 0-0.9 [facility] Comment on above: Performed By: #### Darian ESCOBAR CMP, ####[facility] ([id number])[address] [place] [address] 31676 Monocytes/100 WBC (Bld) 10.0 % Normal [facility] Comment on above: Performed By: #### Darian ESCOBAR CMP, ####[facility] ([id number])[address] [place] [address] 95422 Neutrophils (Bld) [#/Vol] 8.2 10*3/uL High 1.5-6.6 [facility] Comment on above: Performed By: #### Darian ESCOBAR CMP, ####[facility] ([id number])[address] [place] [address] 04560 Platelet mean volume (Bld) [Entitic vol] 8.3 fL Normal 7-12 [facility] Comment on above: Performed By: #### Darian ESCOBAR CMP, ####[facility] ([id number])[address] [place] [address] 41434 Platelets (Bld) [#/Vol] 203 10*3/uL Normal 150-450 [facility] Comment on above: Performed By: #### Darian ESCOBAR CMP, ####[facility] ([id number])[address] [place] [address] 89595 RBC COUNT 3.83 X10E12/L Normal 3.80-5.20 [facility] Comment on above: Performed By: #### Darian ESCOBAR CMP, ####[facility] ([id number])[address] [place] [address] 66484 SEG NEUTROPHIL 72.0 % Normal [facility] Comment on above: Performed By: #### Darian ESCOBAR CMP, ####[facility] ([id number])[address] [place] [address] 52137 WBC (Bld) [#/Vol] 10.8 10*3/uL Normal 4.0-11.0 [facility] Comment on above: Performed By: #### Darina ESCOBAR CMP, ####[facility] ([id number])[address] [place] [address] [place] [address] COMPREHENSIVE METABOLIC PANE [place] 07-10-2024 Albumin [Mass/Vol] 2.7 g/dL Low 3.2-5.3 [facility] Comment on above: Performed By: #### C BCA, CMP, ####[facility] ([id number])[address] [place] [address] [place] [address] ALP [Catalytic activity/Vol] 96 U/L Normal 39-130 [facility] Comment on above: Performed By: #### C BCA, CMP, ####[facility] ([id number])[address] [place] [address] 74319 ALT [Catalytic activity/Vol] 33 U/L High 0-31 [facility] Comment on above: Performed By: #### C BCA, CMP, ####[facility] ([id number])[address] [place] [address] [place] [address] Anion gap [Moles/Vol] 8 mmol/L Normal 5-15 [facility] Comment on above: Performed By: #### C BCA, CMP, ####[facility] ([id number])[address] [place] [address] 04937 AST [Catalytic activity/Vol] 34 U/L Normal 0-41 [facility] Comment on above: Performed By: #### C BCA, CMP, ####[facility] ([id number])[address] [place] [address] 23963 Bilirubin [Mass/Vol] 0.5 mg/dL Normal 0.3-1.2 [facility] Comment on above: Performed By: #### C BCA, CMP, ####[facility] ([id number])[address] [place] [address] Calcium [Mass/Vol] 8.6 mg/dL Normal 8.5-10.5 [facility] Comment on above: Performed By: #### C ALONDRA ESCOBAR, ####[facility] ([id number])[address] [place] [address] 01695 Chloride [Moles/Vol] 102 mmol/L Normal 98-109 [facility] Comment on above: Performed By: #### C SHAWN [facility], ####[facility] ([id number])[address] [place] [address] 74558 CO2 [Moles/Vol] 28 mmol/L Normal 22-32 [facility] Comment on above: Performed By: #### C ALONDRA ESCOBAR, ####[facility] ([id number])[address] [place] [address] 38056 Creatinine [Mass/Vol] 0.67 mg/dL Normal 0.40-1.00 [facility] Comment on above: Result Comment: METH OD TRACEABLE TO IDMS STANDARD Performed By: #### C ALONDRA ESCOBAR, ####[facility] ([id number])[address] [place] [address] 50216 eGFR (CKD-EPI) NON-RACE DEPENDENT >90 Normal >59 [facility] Comment on above: Result Comment: Repo rted eGFR is based on theCKD-EPI 2020 equation that doesnot use a race coefficient. Performed By: #### C ALONDRA ESCOBAR, ####[facility] ([id number])[address] [place] [address] 17188 Glucose [Mass/Vol] 132 mg/dL High 65-99 [facility] Comment on above: Performed By: #### C ALONDRA ESCOBAR, ####[facility] ([id number])[address] [place] [address] 91313 Potassium [Moles/Vol] 3.8 mmol/L Normal 3.5-5.0 [facility] Comment on above: Performed By: #### Darian ESCOBAR [facility], 16096-7 ####[facility] ([id number])[address] [place] [address] 61661 Protein [Mass/Vol] 7.0 g/dL Normal 6.0-8.0 [facility] Comment on above: Performed By: #### Darian ESCOBAR [facility], ####[facility] ([id number])[address] [place] [address] 12410 Sodium [Moles/Vol] 138 mmol/L Normal 134-146 [facility] Comment on above: Performed By: #### Darian ESCOBAR [facility], ####[facility] ([id number])[address] [place] [address] 96227 Urea nitrogen [Mass/Vol] 10 mg/dL Normal 5-23 [facility] Comment on above: Performed By: #### Darian ESCOBAR [facility], ####[facility] ([id number])[address] [place] [address] 72844 MAGNESIUMon 07-10-2024 Magnesium [Mass/Vol] 1.9 mg/dL Normal 1.8-2.6 [facility] Comment on above: Performed By: #### Darian ESCOBAR [facility], ####[facility] ([id number])[address] [place] [address] 08357 Vancomycin trough [Mass/Vol] on 07-10-2024 VANCOMYCIN TROUGH 5.6 ug/mL Normal 5.0-20.0 [facility] Comment on above: Performed By: #### 4 092-3 ####[facility] ([id number])[address] [place] [address] [place] [address] 36on 07-09-2024 36 Reached out to the p t. To let her know her Supartz inj has been approved through [facility]- dated 07/03/24 - 08/02/24. Approval under media. If pt. Calls back, please put on Dr. Brown's schedule tomorrow. Normal [facility] CBC AND AUTO DIFFon 07-09-20 ABSOLUTE BASOPHIL 0.0 X10E9/L Normal 0.0-0.2 [facility] Comment on above: Performed By: #### C SHAWN CMP, 38869-7, 27513-6 ####[facility] ([id number])[address] [place] [address] 22154 ABSOLUTE NEUTROPHIL 9.9 X10E9/L High 1.5-6.6 [facility] Comment on above: Performed By: #### Darian ESCOBAR CMP, , 83658-8 ####[facility] ([id number])[address] [place] [address] [id number] Basophils/100 WBC (Bld) 0.3 % Normal [facility] Comment on above: Performed By: #### Darian BCA, CMP, , 45483-3 ####[facility] ([id number])[address] [place] [address] 13355 Eosinophils (Bld) [#/Vol] 0.1 10*3/uL Normal 0.0-0.4 [facility] Comment on above: Performed By: #### Darian BCA, CMP, , 62839-6 ####[facility] ([id number])[address] [place] [address] [id number] Eosinophils/100 WBC (Bld) 0.4 % Normal [facility] Comment on above: Performed By: #### Darian BCA, CMP, , 73156-9 ####[facility] ([id number])[address] [place] [address] 38726 Erythrocyte distribution width (RBC) [Ratio] 14.4 % Normal 11.5-15.0 [facility] Comment on above: Performed By: #### Darian ESCOBAR CMP, , 95830-8 ####[facility] ([id number])[address] [place] [address] 49875 Hematocrit (Bld) [Volume fraction] 36.3 % Normal 35-47 [facility] Comment on above: Performed By: #### Darian ESCOBAR CMP, , 71051-5 ####[facility] [facility] ([id number])[address] [place] [address] 24388 Hemoglobin (Bld) [Mass/Vol] 11.8 g/dL Normal 11.7-15.5 [facility] Comment on above: Performed By: #### Darian ESCOBAR CMP, , 69921-3 ####[facility] ([id number])[address] [place] [address] 88122 Lymphocytes (Bld) [#/Vol] 1.5 10*3/uL Normal 1.0-3.5 [facility] Comment on above: Performed By: #### Darian ESCOBAR, CMP, , 65312-3 ####[facility] ([id number])[address] [place] [address] 29827 Lymphocytes/100 WBC (Bld) 12.3 % Normal [facility] Comment on above: Performed By: #### Darian ESCOBAR, CMP, , 10562-6 ####[facility] ([id number])[address] [place] [address] 60954 MCH (RBC) [Entitic mass] 30.5 pg Normal 27-34 [facility] Comment on above: Performed By: #### Darian ESCOBAR, CMP, , 74890-4 ####[facility] ([id number])[address] [place] [address] 75260 MCHC (RBC) [Mass/Vol] 32.5 g/dL Normal 32-36 [facility] Comment on above: Performed By: #### Darian ESCOBAR, CMP, 49024-5, 60321-4 ####[facility] ([id number])[address] [place] [address] 87499 MCV (RBC) [Entitic vol] 94 fL Normal 80-100 [facility] Comment on above: Performed By: #### Darian ESCOBAR, CMP, , 00167-2 ####[facility] ([id number])[address] [place] [address] 04178 Monocytes (Bld) [#/Vol] 0.7 10*3/uL Normal 0-0.9 [facility] Comment on above: Performed By: #### Darian ESCOBAR, CMP, , 13866-4 ####[facility] ([id number])[address] [place] [address] 77297 Monocytes/100 WBC (Bld) 5.6 % Normal [facility] Comment on above: Performed By: #### Darian ESCOBAR, CMP, , 20658-1 ####[facility] ([id number])[address] [place] [address] 20086 Neutrophils/100 WBC (Bld) 81.4 % Normal [facility] Comment on above: Performed By: #### Darian ESCOBAR, CMP, , 28689-9 ####[facility] ([id number])[address] [place] [address] 81425 Platelet mean volume (Bld) [Entitic vol] 8.9 fL Normal 7-12 [facility] Comment on above: Performed By: #### Darian BCA, CMP, , 61666-3 ####[facility] ([id number])[address] [place] [address] 25311 Platelets (Bld) [#/Vol] 156 10*3/uL Normal 150-450 [facility] Comment on above: Performed By: #### C BCA, CMP, , 44643-3 ####[facility] ([id number])[address] [place] [address] 71119 RBC COUNT 3.87 X10E12/L Normal 3.80-5.20 [facility] Comment on above: Performed By: #### C BCA, CMP, , 44609-2 ####[facility] ([id number])[address] [place] [address] 01636 WBC (Bld) [#/Vol] 12.2 10*3/uL High 4.0-11.0 [facility] Comment on above: Performed By: #### C BCA, CMP, , 04781-5 ####[facility] ([id number])[address] [place] [address] 13279 COMPREHENSIVE METABOLIC PANE Charles 07-09-2024 Albumin [Mass/Vol] 2.9 g/dL Low 3.2-5.3 [facility] Comment on above: Performed By: #### C BCA, CMP, , 72381-1 ####[facility] ([id number])[address] [place] [address] 11925 ALP [Catalytic activity/Vol] 94 U/L Normal 39-130 [facility] Comment on above: Performed By: #### C BCA, CMP, , 26778-2 ####[facility] ([id number])[address] [place] [address] 66659 ALT [Catalytic activity/Vol] 32 U/L High 0-31 [facility] Comment on above: Performed By: #### C BCA, CMP, , 19334-3 ####[facility] ([id number])[address] [place] [address], [place] [address] Anion gap [Moles/Vol] 8 mmol/L Normal 5-15 [facility] Comment on above: Performed By: #### C BCA, CMP, , 61769-8 ####[facility] ([id number])[address] [place] [address] [place] [address] AST [Catalytic activity/Vol] 40 U/L Normal 0-41 [facility] Comment on above: Performed By: #### C BCA, CMP, , 00369-4 ####[facility] ([id number])[address] [place] [address] [place] [address] Bilirubin [Mass/Vol] 0.8 mg/dL Normal 0.3-1.2 [facility] Comment on above: Performed By: #### C BCA, CMP, , 55477-6 ####[facility] ([id number])[address] [place] [address] 32114 Calcium [Mass/Vol] 8.3 mg/dL Low 8.5-10.5 [facility] Comment on above: Performed By: #### C BCA, CMP, , 32062-9 ####[facility] ([id number])[address] [place] [address] [place] [address] Chloride [Moles/Vol] 103 mmol/L Normal 98-109 [facility] Comment on above: Performed By: #### C BCA, CMP, , 37891-8 ####[facility] ([id number])[address] [place] [address] [place] [address] CO2 [Moles/Vol] 27 mmol/L Normal 22-32 [facility] Comment on above: Performed By: #### C BCA, CMP, , 53473-0 ####[facility] ([id number])[address] [place] [address] 86976 Creatinine [Mass/Vol] 0.61 mg/dL Normal 0.40-1.00 [facility] Comment on above: Result Comment: METH OD TRACEABLE TO IDMS STANDARD Performed By: #### C ALONDRA ESCOBAR, , 43629-5 ####[facility] ([id number])[address] [place] [address] 35093 eGFR (CKD-EPI) NON-RACE DEPENDENT >90 Normal >59 [facility] Comment on above: Result Comment: Repo rted eGFR is based on theCKD-EPI 2020 equation that doesnot use a race coefficient. Performed By: #### C ALONDRA ESCOBAR, , 76580-8 ####[facility] ([id number])[address] [place] [address] 05946 Glucose [Mass/Vol] 116 mg/dL High 65-99 [facility] Comment on above: Performed By: #### C ALONDRA ESCOBAR, , 56051-1 ####[facility] ([id number])[address] [place] [address] 86237 Potassium [Moles/Vol] 3.8 mmol/L Normal 3.5-5.0 [facility] Comment on above: Performed By: #### C SHAWN CMP, , 00751-1 ####[facility] ([id number])[address] [place] [address] 68711 Protein [Mass/Vol] 6.9 g/dL Normal 6.0-8.0 [facility] Comment on above: Performed By: #### C SHAWN CMP, , 71375-0 ####[facility] ([id number])[address] [place] [address] 28066 Sodium [Moles/Vol] 138 mmol/L Normal 134-146 [facility] Comment on above: Performed By: #### C BCA, CMP, 07730-9, 02800-6 ####[facility] ([id number])[address] [place] [address] 96871 Urea nitrogen [Mass/Vol] 15 mg/dL Normal 5-23 [facility] Comment on above: Performed By: #### C BCA, CMP, , 23591-6 ####[facility] ([id number])[address] [place] [address] FEMUR RT W CONTon 024 CT FEMUR RT W CONT Normal [facility] CT TIBFIB RT W CONTon 2023 CT TIBFIB RT W CONT Normal [facility] MAGNESIUMon 07-09-2024 Magnesium [Mass/Vol] 2.2 mg/dL Normal 1.8-2.6 [facility] Comment on above: Performed By: #### C BCA, CMP, 18479-7, 43257-8 ####[facility] ([id number])[address] [place] [address] 67027 MRSA PCR NASALon 07-09-2024 MRSA DNA ELIU+probe Ql (Unsp spec) Negative Normal NEG [facility] Comment on above: Performed By: #### 3 5492-8 ####[facility] ([id number])[address] [facility], [place] [address] POTASSIUMon 07-09-2024 Potassium [Moles/Vol] 4.3 mmol/L Normal 3.5-5.0 [facility] Comment on above: Result Comment: SPEC IMEN HEMOLYZED, RESULTS INCREASED Performed By: #### 2 823-3 ####[facility] ([id number])[address] [place] [address] 60072 Procalcitonin IA [Mass/Vol]o n 07-09-2024 PROCALCITONIN 4.90 ng/mL High <0.05 [facility] Comment on above: Result Comment: NOTE <0.50 ng/mL - Low risk of severe sepsis and/or septic shock.<2.00 ng/mL - Recommend retesting within 6-24 hours.>2.00 ng/mL - High risk of sepsis and/or septic shock. Performed By: #### C BCA, CMP, , 48837-2 ####[facility] ([id number])[address] [place] [address] 21193 CBC AND AUTO DIFFon 07-08-20 24 Band form neutrophils/100 WBC (Bld) 8.0 % Normal [facility] Comment on above: Performed By: #### C MP, , CBCA, 91663-5 ####[facility] ([id number])[address] [place] [address] 94434 Erythrocyte distribution width (RBC) [Ratio] 13.9 % Normal 11.5-15.0 [facility] Comment on above: Performed By: #### C MP, , CBCA, 56627-3 ####[facility] ([id number])[address] [place] [address] 25985 Hematocrit (Bld) [Volume fraction] 37.8 % Normal 35-47 [facility] Comment on above: Performed By: #### C MP, , CBCA, 24405-2 ####[facility] ([id number])[address] [place] [address] 96148 Hemoglobin (Bld) [Mass/Vol] 12.3 g/dL Normal 11.7-15.5 [facility] Comment on above: Performed By: #### C MP, , CBCA, 23836-2 ####[facility] ([id number])[address] [place] [address] 54232 Lymphocytes (Bld) [#/Vol] 0.2 10*3/uL Low 1.0-3.5 [facility] Comment on above: Performed By: #### C MELISA, , CBCA, 87786-0 ####[facility] ([id number])[address] [place] [address] 71521 Lymphocytes/100 WBC (Bld) 1.0 % Normal [facility] Comment on above: Performed By: #### C MELISA, , CBCA, 48501-7 ####[facility] ([id number])[address] [place] [address] 04972 MCH (RBC) [Entitic mass] 30.3 pg Normal 27-34 [facility] Comment on above: Performed By: #### C MELISA, , CBCA, 04058-7 ####[facility] ([id number])[address] [place] [address] 13859 MCHC (RBC) [Mass/Vol] 32.6 g/dL Normal 32-36 [facility] Comment on above: Performed By: #### C MELISA, , CBCA, 81721-5 ####[facility] ([id number])[address] [place] [address] 83697 MCV (RBC) [Entitic vol] 93 fL Normal 80-100 [facility] Comment on above: Performed By: #### C MELISA, , CBCA, 48430-0 ####[facility] ([id number])[address] [place] [address] 94954 Metamyelocytes/100 WBC (Bld) 3.0 % Normal [facility] Comment on above: Performed By: #### C MELISA, , CBCA, 31071-7 ####[facility] ([id number])[address] [place] [address] 95740 Monocytes (Bld) [#/Vol] 0.4 10*3/uL Normal 0-0.9 [facility] Comment on above: Performed By: #### C MELISA, , CBCA, 87255-3 ####[facility] ([id number])[address] [place] [address] 31640 Monocytes/100 WBC (Bld) 2.0 % Normal [facility] Comment on above: Performed By: #### C MELISA, 00578-1, CBCA, 62960-4 ####[facility] ([id number])[address] [place] [address] 38025 Neutrophils (Bld) [#/Vol] 20.4 10*3/uL High 1.5-6.6 [facility] Comment on above: Performed By: #### C MELISA, , CBCA, 53846-1 ####[facility] ([id number])[address] [place] [address] 45494 Platelet mean volume (Bld) [Entitic vol] 8.3 fL Normal 7-12 [facility] Comment on above: Performed By: #### C MELISA, , CBCA, 43987-0 ####[facility] ([id number])[address] [place] [address] 37387 Platelets (Bld) [#/Vol] 189 10*3/uL Normal 150-450 [facility] Comment on above: Performed By: #### C MELISA, 52821-2, CBCA, 77941-1 ####[facility] ([id number])[address] [place] [address] 87631 POLYCHROMASIA 1+ Abnormal NONE [facility] Comment on above: Performed By: #### C MELISA, 82445-2, CBCA, 78898-4 ####[facility] ([id number])[address] [place] [address] 78843 RBC COUNT 4.08 X10E12/L Normal 3.80-5.20 [facility] Comment on above: Performed By: #### C MELISA, , CBCA, 42667-0 ####[facility] ([id number])[address] [place] [address] 18249 SEG NEUTROPHIL 86.0 % Normal [facility] Comment on above: Performed By: #### C MELISA, , CBCA, 45731-5 ####[facility] ([id number])[address] [place] [address] 49349 WBC (Bld) [#/Vol] 21.7 10*3/uL High 4.0-11.0 [facility] Comment on above: Performed By: #### C MELISA, , CBCA, 52593-0 ####[facility] ([id number])[address] [place] [address] 74810 COMPREHENSIVE METABOLIC PANE Charles 07-08-2024 Albumin [Mass/Vol] 2.9 g/dL Low 3.2-5.3 [facility] Comment on above: Performed By: #### Darian VINCENT, , CBCA, 44609-5 ####[facility] ([id number])[address] [place] [address] 00814 ALP [Catalytic activity/Vol] 67 U/L Normal 39-130 [facility] Comment on above: Performed By: #### C MELISA, 13560-7, CBCA, 43554-3 ####[facility] ([id number])[address] [place] [address] 80287 ALT [Catalytic activity/Vol] 29 U/L Normal 0-31 [facility] Comment on above: Performed By: #### Darian VINCENT, 21029-5, CBCA, 51774-5 ####[facility] ([id number])[address] [place] [address], [place] [address] Anion gap [Moles/Vol] 10 mmol/L Normal 5-15 [facility] Comment on above: Performed By: #### C MELISA, 64829-4, CBCA, 00337-5 ####[facility] ([id number])[address] [place] [address] [place] [address] AST [Catalytic activity/Vol] 27 U/L Normal 0-41 [facility] Comment on above: Performed By: #### C MELISA, , CBCA, 59614-7 ####[facility] ([id number])[address] [place] [address] 44213 Bilirubin [Mass/Vol] 0.7 mg/dL Normal 0.3-1.2 [facility] Comment on above: Performed By: #### Darian VINCENT, , CBCA, 36017-0 ####[facility] ([id number])[address] [place] [address] [place] [address] Calcium [Mass/Vol] 8.0 mg/dL Low 8.5-10.5 [facility] Comment on above: Performed By: #### C MELISA, , CBCA, 01762-2 ####[facility] ([id number])[address] [place] [address] [place] [address] Chloride [Moles/Vol] 100 mmol/L Normal 98-109 [facility] Comment on above: Performed By: #### C MELISA, , CBCA, 21826-0 ####[facility] ([id number])[address] [place] [address] [place] [address] CO2 [Moles/Vol] 23 mmol/L Normal 22-32 [facility] Comment on above: Performed By: #### C MELISA, 01555-4, CBCA, 81077-2 ####[facility] ([id number])[address] [place] [address] 47888 Creatinine [Mass/Vol] 0.80 mg/dL Normal 0.40-1.00 [facility] Comment on above: Result Comment: METH OD TRACEABLE TO IDMS STANDARD Performed By: #### C MELISA, , CBCA, 16772-4 ####[facility] ([id number])[address] [place] [address] 42524 GFR/1.73 sq M.predicted among non-blacks MDRD (S/P/Bld) [Vol rate/Area] 88 mL/min/{1.73_m2} Normal >59 [facility] Comment on above: Result Comment: Repo rted eGFR is based on theCKD-EPI 2020 equation that doesnot use a race coefficient. Performed By: #### C MELISA, , CBCA, 30446-5 ####[facility] ([id number])[address] [place] [address] 43395 Glucose [Mass/Vol] 146 mg/dL High 65-99 [facility] Comment on above: Performed By: #### C MELISA, , CBCA, 37164-7 ####[facility] ([id number])[address] [place] [address] 60794 Potassium [Moles/Vol] 3.6 mmol/L Normal 3.5-5.0 [facility] Comment on above: Performed By: #### C MELISA, , CBCA, 33938-1 ####[facility] ([id number])[address] [place] [address] 38798 Protein [Mass/Vol] 6.8 g/dL Normal 6.0-8.0 [facility] Comment on above: Performed By: #### C MELISA, , CBCA, 88357-6 ####[facility] ([id number])[address] [place] [address] 56653 Sodium [Moles/Vol] 133 mmol/L Low 134-146 [facility] Comment on above: Performed By: #### C MELISA, , CBCA, 60282-4 ####[facility] ([id number])[address] [place] [address] 45042 Urea nitrogen [Mass/Vol] 18 mg/dL Normal 5-23 [facility] Comment on above: Performed By: #### C MELISA, , CBCA, 71066-4 ####[facility] ([id number])[address] [place] [address] 68255 Lactate (P sasha) [Moles/Vol]o n 07-08-2024 LACTATE W/REFLEX 1.3 mmol/L Normal 0.4-2.0 [facility] Comment on above: Result Comment: Resu lt did not trigger repeat Lactate,re-order if needed. Performed By: #### 3 2133-1 ####[facility] ([id number])[address] [place] [address] 82095 MAGNESIUMon 07-08-2024 Magnesium [Mass/Vol] 2.5 mg/dL Normal 1.8-2.6 [facility] Comment on above: Performed By: #### 1 9123-9 ####[facility] ([id number])[address] [place] [address] 45416 Magnesium [Mass/Vol] 1.9 mg/dL Normal 1.8-2.6 [facility] Comment on above: Performed By: #### C MELISA, , CBCA, 30747-5 ####[facility] ([id number])[address] [place] [address] 31370 POTASSIUMon 07-08-2024 Potassium [Moles/Vol] 4.0 mmol/L Normal 3.5-5.0 [facility] Comment on above: Performed By: #### 2 823-3 ####[facility] ([id number])[address] [place] [address] 46743 Procalcitonin IA [Mass/Vol]o n 07-08-2024 PROCALCITONIN 7.61 ng/mL High <0.05 [facility] Comment on above: Result Comment: NOTE <0.50 ng/mL - Low risk of severe sepsis and/or septic shock.<2.00 ng/mL - Recommend retesting within 6-24 hours.>2.00 ng/mL - High risk of sepsis and/or septic shock. Performed By: #### C MP, 97932-0, CBCA, 30701-2 ####[facility] ([id number])[address] [place] [address] [place] [address] URINALYSISon 07-08-2024 Bilirubin Ql (U) Negative Normal NEG [facility] Comment on above: Performed By: #### U A ####[facility] ([id number])[address] [place] [address] [place] [address] BLOOD/HGB Large Abnormal NEG [facility] Comment on above: Performed By: #### U A ####[facility] ([id number])[address] [place] [address] [place] [address] Color (U) YELLOW Normal YELLOW [facility] Comment on above: Performed By: #### U A ####[facility] ([id number])[address] [place] [address], [place] [address] Glucose Ql (U) Negative Normal NEG [facility] Comment on above: Performed By: #### U A ####[facility] ([id number])[address] [place] [address], [place] [address] Ketones Ql (U) Negative Normal NEG [facility] Comment on above: Performed By: #### U A ####[facility] ([id number])[address] [place] [address] 28844 Leukocyte esterase Test strip Ql (U) Negative Normal NEG [facility] Comment on above: Performed By: #### U A ####[facility] ([id number])[address] [place] [address] 10688 Nitrite Ql (U) Negative Normal NEG [facility] Comment on above: Performed By: #### U A ####[facility] ([id number])[address] [place] [address] 71543 pH (U) 6.0 [pH] Normal 5.0-8.5 [facility] Comment on above: Performed By: #### U A ####[facility] ([id number])[address] [place] [address] 14438 Protein Ql (U) Negative Normal NEG [facility] Comment on above: Performed By: #### U A ####[facility] ([id number])[address] [place] [address] 45290 R.B.CELLS 25 /hpf High 0-5 [facility] Comment on above: Performed By: #### U A ####[facility] ([id number])[address] [place] [address] 82124 Specific gravity (U) [Rel density] 1.020 Normal 1.003-1.03 5 [facility] Comment on above: Performed By: #### U A ####[facility] ([id number])[address] [place] [address] 01900 SQUAMOUS EPITHELIUM 2 /hpf Normal 0-5 [facility] Comment on above: Performed By: #### U A ####[facility] ([id number])[address] [place] [address] 67318 TURBIDITY CLEAR Normal CLEAR [facility] Comment on above: Performed By: #### U A ####[facility] ([id number])[address] [place] [address] 45562 Urobilinogen Qn (U) 1.0 {Danielle'U}/dL Normal <1.1 [facility] Comment on above: Performed By: #### U A ####[facility] ([id number])[address] [place] [address] 45800 W.B.CELLS 4 /hpf Normal 0-5 [facility] Comment on above: Performed By: #### U A ####[facility] ([id number])[address] [place] [address] 09115 XR TIBIA FIBULA RT MIN 2 VWS on 07-08-2024 XR TIBIA FIBULA RT MIN 2 VWS Normal [facility] BLOOD CULTUREon 07-07-2024 Bacteria identified Aer cx Nom (Bld) CULTURE RESULTS NO GROWTH 5 DAYS Normal [facility] CBC AND AUTO DIFFon 07-07-20 24 Band form neutrophils/100 WBC (Bld) 5.0 % Normal [facility] Comment on above: Performed By: #### C SHAWN, 64680-2, PINR, 15772-2, CMP, 44167-9, 92934-4, 30962-3, 1988-02 ####[facility] ([id number])[address] [place] [address] 86674#### 18199-6 ####[facility] ([id number])[address] [place] [address], [address] [place] [address] 37618 Erythrocyte distribution width (RBC) [Ratio] 14.0 % Normal 11.5-15.0 [facility] Comment on above: Performed By: #### C BCA, 05978-9, PINR, 86618-3, CMP, 22051-8, 56964-3, 14097-6, 1988-02 ####[facility] ([id number])[address] [place] [address] 28930#### 02809-2 ####[facility] ([id number])[address], [address] [place] [address] 71168 Hematocrit (Bld) [Volume fraction] 43.0 % Normal 35-47 [facility] Comment on above: Performed By: #### C BCA, 47614-4, PINR, 19579-6, CMP, 91864-9, 59457-8, 27028-7, 1988-02 ####[facility] ([id number])[address] [place] [address] 90629#### 26903-9 ####[facility] ([id number])[address], [address] [place] [address] 09444 Hemoglobin (Bld) [Mass/Vol] 14.3 g/dL Normal 11.7-15.5 [facility] Comment on above: Performed By: #### C BCA, 20300-7, PINR, 26570-8, CMP, 66346-5, 42323-2, 95136-9, 1988-02 ####[facility] ([id number])[address] [place] [address] 31105#### 82208-1 ####[facility] ([id number])[address], [address] [place] [address] 50924 Lymphocytes (Bld) [#/Vol] 0.5 10*3/uL Low 1.0-3.5 [facility] Comment on above: Performed By: #### C BCA, 18469-7, PINR, 44205-7, CMP, 56405-0, 58979-8, 38671-7, 1988-02 ####[facility] ([id number])[address] [place] [address] 99541#### 72930-0 ####[facility] ([id number])[address], [address] [address] Lymphocytes/100 WBC (Bld) 2.0 % Normal [facility] Comment on above: Performed By: #### C BCA, 30027-6, PINR, 81384-6, CMP, 64376-1, 20527-3, 73128-3, 1988-02 ####[facility] ([id number])[address] [place] [address] 29704#### 33814-5 ####[facility] ([id number])[address], [address] [place] [address] 33442 MCH (RBC) [Entitic mass] 30.7 pg Normal 27-34 [facility] Comment on above: Performed By: #### C SHAWN, 54252-7, PINR, 16959-6, CMP, 83033-6, 81860-6, 76245-2, 1988-02 ####[facility] ([id number])[address] [place] [address] 39737#### 05607-8 ####[facility] ([id number])[address], [address] [place] [address] 53991 MCHC (RBC) [Mass/Vol] 33.2 g/dL Normal 32-36 [facility] Comment on above: Performed By: #### C SHAWN, 60098-6, PINR, 93306-5, CMP, 26250-2, 51979-4, 96433-5, 1988-02 ####[facility] ([id number])[address] [place] [address] 31921#### 22112-2 ####[facility] ([id number])[address], [address] [place] [address] 73194 MCV (RBC) [Entitic vol] 93 fL Normal 80-100 [facility] Comment on above: Performed By: #### C BCA, 32093-8, PINR, 43422-4, CMP, 14623-1, 54323-9, 10152-8, 1988-02 ####[facility] ([id number])[address] [place] [address] 55614#### 74778-5 ####[facility] ([id number])[address], [address] [place] [address] 98029 Metamyelocytes/100 WBC (Bld) 1.0 % Normal [facility] Comment on above: Performed By: #### C BCA, 36610-1, PINR, 83578-2, CMP, 15238-5, 56500-4, 28688-6, 1988-02 ####[facility] ([id number])[address] [place] [address] 19173#### 98561-9 ####[facility] ([id number])[address], [address] [place] [address] 50151 Monocytes (Bld) [#/Vol] 0.7 10*3/uL Normal 0-0.9 [facility] Comment on above: Performed By: #### C BCA, 48503-3, PINR, 10450-3, CMP, 18254-7, 36587-2, 57235-4, 1988-02 ####[facility] ([id number])[address] [place] [address] 23337#### 22551-9 ####[facility] ([id number])[address], [address] [place] [address] 09568 Monocytes/100 WBC (Bld) 3.0 % Normal [facility] Comment on above: Performed By: #### C BCA, 31921-1, PINR, 14299-9, CMP, 82438-6, 48820-3, 91945-9, 1988-02 ####[facility] ([id number])[address] [place] [address] 40401#### 34773-0 ####[facility] ([id number])[address], [address] [place] [address] 93278 Neutrophils (Bld) [#/Vol] 23.4 10*3/uL High 1.5-6.6 [facility] Comment on above: Performed By: #### C BCA, 73381-7, PINR, 20738-7, CMP, 20272-8, 02418-4, 04569-2, 1988-02 ####[facility] ([id number])[address] [place] [address] 44450#### 79210-4 ####[facility] ([id number])0 [facility], [address] [address] Platelet mean volume (Bld) [Entitic vol] 8.4 fL Normal 7-12 [facility] Comment on above: Performed By: #### C BCA, 37877-8, PINR, 32485-6, CMP, 94166-1, 88697-9, 82105-6, 1988-02 ####[facility] ([id number])[address] [place] [address] 96158#### 78292-6 ####[facility] ([id number])[address] [address] Platelets (Bld) [#/Vol] 211 10*3/uL Normal 150-450 [facility] Comment on above: Performed By: #### C BCA, 07678-5, PINR, 76708-6, CMP, 67688-0, 61199-2, 12188-2, 1988-02 ####[facility] ([id number])[address] [place] [address] 14578#### 61617-9 ####[facility] ([id number])[address], [address] [place] [address] 50486 POLYCHROMASIA 1+ Abnormal NONE [facility] Comment on above: Performed By: #### C BCA, 49296-7, PINR, 64484-0, CMP, 50375-8, 07992-5, 06136-7, 1988-02 ####[facility] ([id number])[address] [place] [address] 32154#### 35125-9 ####[facility] ([id number])[address], [address] [place] [address] 35060 RBC COUNT 4.65 X10E12/L Normal 3.80-5.20 [facility] Comment on above: Performed By: #### C BCA, 83039-1, PINR, 73511-8, CMP, 97745-1, 82742-5, 11686-0, 1988-02 ####[facility] ([id number])[address] [place] [address] 77431#### 14821-6 ####[facility] ([id number])[address], [address] [place] [address] 09956 SEG NEUTROPHIL 89.0 % Normal [facility] Comment on above: Performed By: #### C BCA, 79366-5, PINR, 12775-1, CMP, 47660-6, 83778-4, 70184-5, 1988-02 ####[facility] ([id number])[address] [place] [address] 53677#### 57435-3 ####[facility] ([id number])[address], [address] [place] [address] 18637 WBC (Bld) [#/Vol] 24.8 10*3/uL High 4.0-11.0 [facility] Comment on above: Performed By: #### C BCA, 07711-5, PINR, 88878-5, CMP, 07675-1, 95290-1, 90010-4, 1988-02 ####[facility] ([id number])[address] [place] [address] 84096#### 89092-7 ####[facility] ([id number])[address], [address] [address] COMPREHENSIVE METABOLIC PANE Charles 07-07-2024 Albumin [Mass/Vol] 3.6 g/dL Normal 3.2-5.3 [facility] Comment on above: Performed By: #### C BCA, 88155-1, PINR, 70455-5, CMP, 44491-6, 73991-7, 94549-0, 1988-02 ####[facility] ([id number])[address] [place] [address] 21847#### 67670-1 ####[facility] ([id number])[address], [address] [address] ALP [Catalytic activity/Vol] 69 U/L Normal 39-130 [facility] Comment on above: Performed By: #### C BCA, 64416-5, PINR, 93210-7, CMP, 23413-3, 22509-9, 92624-1, 1988-02 ####[facility] ([id number])[address] [place] [address] 79189#### 12007-5 ####[facility] ([id number])[address], [address] [address] ALT [Catalytic activity/Vol] 33 U/L High 0-31 [facility] Comment on above: Performed By: #### C BCA, 51397-7, PINR, 93998-6, CMP, 71228-1, 50464-1, 80504-8, 1988-02 ####[facility] ([id number])[address] [place] [address], [place] [address]#### 47854-9 ####[facility] ([id number])[address], [address] [address] Anion gap [Moles/Vol] 11 mmol/L Normal 5-15 [facility] Comment on above: Performed By: #### C BCA, 22749-3, PINR, 32019-7, CMP, 00727-5, 00091-6, 39384-2, 1988-02 ####[facility] ([id number])[address] [place] [address] 69979#### 97149-4 ####[facility] ([id number])[address], [address] [place] [address] 21451 AST [Catalytic activity/Vol] 35 U/L Normal 0-41 [facility] Comment on above: Performed By: #### C BCA, 43246-7, PINR, 04651-9, CMP, 80391-5, 60307-7, 99821-3, 1988-02 ####[facility] ([id number])[address] [place] [address] 84163#### 54758-4 ####[facility] ([id number])[address], [address] [place] [address] 39001 Bilirubin [Mass/Vol] 1.0 mg/dL Normal 0.3-1.2 [facility] Comment on above: Performed By: #### C BCA, 60808-1, PINR, 13153-5, CMP, 12549-5, 71232-6, 19901-1, 1988-02 ####[facility] ([id number])[address] [place] [address] 18414#### 44202-7 ####[facility] ([id number])[address], [address] [place] [address] 17719 Calcium [Mass/Vol] 8.6 mg/dL Normal 8.5-10.5 [facility] Comment on above: Performed By: #### C BCA, 86526-9, PINR, 51161-7, CMP, 28815-4, 04459-7, 87326-6, 1988-02 ####[facility] ([id number])[address] [place] [address] 30245#### 07658-8 ####[facility] ([id number])[address], [address] [place] [address] 15814 Chloride [Moles/Vol] 96 mmol/L Low 98-109 [facility] Comment on above: Performed By: #### C BCA, 35536-4, PINR, 61562-4, CMP, 63680-6, 53851-0, 23472-7, 1988-02 ####[facility] ([id number])[address] [place] [address] 33877#### 25062-8 ####[facility] ([id number])[address] [facility], [address] [place] [address] 20521 CO2 [Moles/Vol] 26 mmol/L Normal 22-32 [facility] Comment on above: Performed By: #### C BCA, 11987-5, PINR, 37940-4, CMP, 53319-4, 79219-1, 70564-6, 1988-02 ####[facility] ([id number])[address] [place] [address] 74609#### 44319-5 ####[facility] ([id number])[address], [address] [place] [address] 17299 Creatinine [Mass/Vol] 0.99 mg/dL Normal 0.40-1.00 [facility] Comment on above: Result Comment: METH OD TRACEABLE TO IDMS STANDARD Performed By: #### C BCA, 39123-0, PINR, 29636-7, CMP, 22693-5, 63908-0, 68378-6, 1988-02 ####[facility] ([id number])[address] [place] [address] 04114#### 62180-3 ####[facility] ([id number])[address], [address] [place] [address] 41517 GFR/1.73 sq M.predicted among non-blacks MDRD (S/P/Bld) [Vol rate/Area] 68 mL/min/{1.73_m2} Normal >59 [facility] Comment on above: Result Comment: Repo rted eGFR is based on theCKD-EPI 2020 equation that doesnot use a race coefficient. Performed By: #### C BCA, 85085-5, PINR, 92478-9, CMP, 87001-9, 39271-7, 56227-7, 1988-02 ####[facility] ([id number])[address] [place] [address] 10640#### 44244-1 ####[facility] ([id number])[address], [address] [place] [address] 92117 Glucose [Mass/Vol] 143 mg/dL High 65-99 [facility] Comment on above: Performed By: #### C BCA, 35675-7, PINR, 34719-5, CMP, 35168-3, 76340-2, 68150-7, 1988-02 ####[facility] ([id number])[address] [place] [address] 03856#### 92393-4 ####[facility] ([id number])[address], [address] [place] [address] 29494 Potassium [Moles/Vol] 4.2 mmol/L Normal 3.5-5.0 [facility] Comment on above: Performed By: #### C BCA, 62536-6, PINR, 82604-4, CMP, 72666-7, 21972-3, 11996-7, 1988-02 ####[facility] ([id number])[address] [place] [address] 93596#### 74371-9 ####[facility] ([id number])[address], [address] [place] [address] 14471 Protein [Mass/Vol] 7.7 g/dL Normal 6.0-8.0 [facility] Comment on above: Performed By: #### C BCA, 60052-2, PINR, 52594-1, CMP, 62281-9, 27657-6, 59681-4, 1988-02 ####[facility] ([id number])[address] [place] [address] 27252#### 60007-2 ####[facility] ([id number])[address], [address] [place] [address] 22011 Sodium [Moles/Vol] 133 mmol/L Low 134-146 [facility] Comment on above: Performed By: #### C BCA, 16075-0, PINR, 26628-6, CMP, 07980-3, 33945-5, 53850-5, 1988-02 ####[facility] ([id number])[address] [place] [address] 14573#### 84894-1 ####[facility] ([id number])[address], [address] [place] [address] 57601 Urea nitrogen [Mass/Vol] 22 mg/dL Normal 5-23 [facility] Comment on above: Performed By: #### C BCA, 66963-0, PINR, 25522-4, CMP, 92621-3, 88058-5, 81801-8, 1988-02 ####[facility] ([id number])[address] [place] [address] 93269#### 05004-8 ####[facility] ([id number])[address], [address] [place] [address] 89541 CRP [Mass/Vol]on 07-07-2024 C REACTIVE PROTEIN 36.5 mg/dL High 0.000-0.7 4 4 [facility] Comment on above: Performed By: #### C BCA, 97906-8, PINR, 29887-1, CMP, 05629-3, 32647-7, 09407-2, 1988-02 ####[facility] ([id number])[address] [place] [address] 55155#### 38167-4 ####[facility] ([id number])[address], [address] [place] [address] CTA CHESTon 07-07-2024 CT CTA CHEST Normal [facility] ESR Photometric method (Bld) [Velocity]on 07-07-2024 ESR, ERYTHROCYTE SEDIMENTATION RATE 70 mm/h High 0-30 [facility] Comment on above: Performed By: #### C BCA, 52718-3, PINR, 76554-8, CMP, 27623-1, 01998-8, 51389-6, 1988-02 ####[facility] ([id number])[address] [place] [address] 00977#### 56332-7 ####[facility] ([id number])[address], [address] [place] [address] 27373 Fibrin D-dimer DDU (PPP) [Ma ss/Vol]on 07-07-2024 D DIMER 447 ng/mL DDU High <255 [facility] Comment on above: Result Comment: Resu lts >=255ng/mL DDU: Results may beindicative of the presence of VTE. The useof the Wells score and further diagnostictests should be considered. Elevated D-Dimerlevels can also be associated with DIC,neoplasm, , trauma and liver disease.Elevated levels of rheumatoid factor may leadto an overestimation of the D-Dimer level. Performed By: #### C BCA, 09765-9, PINR, 21169-6, CMP, 56208-6, 91280-0, 19134-3, 1988-02 ####[facility] ([id number])[address] [place] [address] 05181#### 63384-0 ####[facility] ([id number])[address], [address] [place] [address] 69320 Lactate (P sasha) [Moles/Vol]o n 07-07-2024 Lactate [Moles/Vol] 2.3 mmol/L High 0.4-2.0 [facility] Comment on above: Performed By: #### 3 2133-1 ####[facility] ([id number])[address] [place] [address] 24226 LACTATE W/REFLEX 2.1 mmol/L High 0.4-2.0 [facility] Comment on above: Performed By: #### 3 2132-1 ####[facility] ([id number])[address] [place] [address] 74221 MAGNESIUMon 07-07-2024 Magnesium [Mass/Vol] 1.8 mg/dL Normal 1.8-2.6 [facility] Comment on above: Performed By: #### C BCA, 07827-0, PINR, 07813-1, CMP, 66899-6, 32626-9, 26068-7, 1988-02 ####[facility] ([id number])[address] [place] [address] 91686#### 23479-5 ####[facility] ([id number])[address], [address] [place] [address] 24190 Natriuretic peptide B [Mass/ Vol]on 07-07-2024 Natriuretic peptide B (Bld) [Mass/Vol] 24 pg/mL Normal <100.0 [facility] Comment on above: Performed By: #### C BCA, 28375-9, PINR, 88621-0, CMP, 85169-6, 79634-9, 34756-7, 1988-02 ####[facility] ([id number])[address] [place] [address] 65070#### 53030-3 ####[facility] ([id number])[address], [address] [place] [address] 04408 PROTIME AND INRon 07-07-2024 INR Coag (PPP) [Relative time] 1.3 {INR} High 0.8-1.1 [facility] Comment on above: Performed By: #### C BCA, 66648-7, PINR, 74024-7, CMP, 65453-0, 64378-0, 72140-9, 1988-02 ####[facility] ([id number])[address] [place] [address] 87957#### 73693-8 ####[facility] ([id number])[address] [facility], [address] [place] [address] 47970 PT Coag (PPP) [Time] 14.6 s High 9.8-13.2 [facility] Comment on above: Result Comment: NEW REFERENCE RANGE Performed By: #### C BCA, 38500-5, PINR, 33813-9, CMP, 29639-3, 57929-4, 05240-0, 1988-02 ####[facility] ([id number])[address] [place] [address] 76090#### 95080-3 ####[facility] ([id number])[address], [address] [place] [address] 90930 Procalcitonin IA [Mass/Vol]o n 07-07-2024 PROCALCITONIN 10.12 ng/mL High <0.05 [facility] Comment on above: Result Comment: NOTE <0.50 ng/mL - Low risk of severe sepsis and/or septic shock.<2.00 ng/mL - Recommend retesting within 6-24 hours.>2.00 ng/mL - High risk of sepsis and/or septic shock. Performed By: #### C BCA, 65643-9, PINR, 59461-4, CMP, 17064-1, 47828-4, 41244-5, 1988-02 ####[facility] ([id number])[address] [place] [address] 00162#### 60689-0 ####[facility] ([id number])[address] [place] [address], [address] [address] [address] SCR NURSINGon S. pyogenes Ag EIA Ql (Throat) Negative Normal NEG [facility] Comment on above: Performed By: #### 6 556-5 ####[facility] ([id number])[address] [place] [address] 84107 SARS/FLU A+B/RSV by NAAT/Mol ecularon 07-07-2024 SARS/FLU A+B/RSV by NAAT/Molecular Normal [facility] Comment on above: Performed By: #### C OVFLR ####[facility] ([id number])[address] [place] [address] 04741 aPTT Coag (PPP) [Time]on aPTT Coag (Bld) [Time] 33 s Normal 26-37 [facility] Comment on above: Result Comment: NEW REFERENCE RANGE Performed By: #### C BCA, 95657-6, PINR, 44814-5, CMP, 07092-2, 86681-8, 68430-5, 1988-02 ####[facility] ([id number])[address] [place] [address] 18484#### 04601-1 ####[facility] ([id number])[address] [place] [address], [address] [address] 36on 07-06-2024 36 Notes and C9 submitt ed to Aubrie today. [facility] 36 Returned the pt. Lobo ammy a detailed message letting her know we are working on the approval if her injection and should have this resolved by 07/22/24 [facility] 36 Patient states her p er audio visual aids director ha durán states the injections received on 07/03/24 were not approved through [facility]. States he would like a call back to see why the request was not put in. Patient states she doesn't want to pay for the injections and she's confused as to why she was scheduled if it wasn't approved. I checked the notes/media all I saw was approvals for prior dates none scanned in for June. Please call patient and her audio visual aids director back with information on this. [phone]- ha durán (audio visual aids director) [facility] Telephoneon 07-06-2024 Telephone [phone] Nara Banerjee S 1970 F Date Provider Department Center 07/06/2024 CARLIE BENTLEY MP ORTHO MPORTHO No family history on file Reason for Visit and Comments: [facility]- injections [Other] [facility] Office Visiton 07-03-2024 Follow-up visit [id number] Nara Banerjee S 1970 F Date Provider Department Center 07/03/2024 CARLIE BENTLEY MP ORTHO MPORTBERNARDO No family history on file Level of Service:02215 [place] OFFICE/OUTPT VISIT,PROCEDURE ONLY (GC) Reason for Visit and Comments: Follow-up [266159] - Injection supartz [facility] XR ABDOMEN AP 1 VWon 024 XR ABDOMEN AP 1 VW Normal [facility] HCG ( test) Ql (U)o n 06-17-2024 Beta HCG ( test) Ql (U) Negative Normal NEG [facility] Comment on above: Performed By: #### 2 106-3 ####[facility] ([id number])[address] [place] [address] [place] [address] CBC AND AUTO DIFFon 06-12-20 24 ABSOLUTE BASOPHIL 0.1 X10E9/L Normal 0.0-0.2 [facility] Comment on above: Performed By: #### C BCA, HA1C, CMP, 08638-3 ####[facility] ([id number])[address] [address] ABSOLUTE NEUTROPHIL 5.3 X10E9/L Normal 1.5-6.6 [facility] Comment on above: Performed By: #### C BCA, HA1C, CMP, 30255-8 ####[facility] ([id number])[address] [address] Basophils/100 WBC (Bld) 0.8 % Normal [facility] Comment on above: Performed By: #### C BCA, HA1C, CMP, 73939-7 ####[facility] ([id number])[address] [address] [place] [address] 23504 Eosinophils (Bld) [#/Vol] 0.2 10*3/uL Normal 0.0-0.4 [facility] Comment on above: Performed By: #### C BCA, HA1C, CMP, 15535-6 ####[facility] ([id number])[address] [address] Eosinophils/100 WBC (Bld) 2.1 % Normal [facility] Comment on above: Performed By: #### C BCA, HA1C, CMP, 17934-3 ####[facility] ([id number])[address] [address] Erythrocyte distribution width (RBC) [Ratio] 14.7 % Normal 11.5-15.0 [facility] Comment on above: Performed By: #### C BCA, HA1C, CMP, 09125-6 ####[facility] ([id number])[address] [address], [place] [address] Hematocrit (Bld) [Volume fraction] 45.3 % Normal 35-47 [facility] Comment on above: Performed By: #### C BCA, HA1C, CMP, 44580-5 ####[facility] ([id number])[address] [address], [place] [address] Hemoglobin (Bld) [Mass/Vol] 14.8 g/dL Normal 11.7-15.5 [facility] Comment on above: Performed By: #### C BCA, HA1C, CMP, 57234-4 ####[facility] ([id number])[address] [address] [address] Lymphocytes (Bld) [#/Vol] 2.6 10*3/uL Normal 1.0-3.5 [facility] Comment on above: Performed By: #### C BCA, HA1C, CMP, 02378-2 ####[facility] ([id number])[address] [address] Lymphocytes/100 WBC (Bld) 30.2 % Normal [facility] Comment on above: Performed By: #### C BCA, HA1C, CMP, 28743-3 ####[facility] ([id number])[address] [place] [address] MCH (RBC) [Entitic mass] 30.2 pg Normal 27-34 [facility] Comment on above: Performed By: #### C BCA, HA1C, CMP, 01850-9 ####[facility] ([id number])[address] [place] [address] MCHC (RBC) [Mass/Vol] 32.6 g/dL Normal 32-36 [facility] Comment on above: Performed By: #### C BCA, HA1C, CMP, 38066-6 ####[facility] ([id number])[address], [place] [address] MCV (RBC) [Entitic vol] 93 fL Normal 80-100 [facility] Comment on above: Performed By: #### C BCA, HA1C, CMP, 18518-7 ####[facility] ([id number])[address], [place] [address] Monocytes (Bld) [#/Vol] 0.4 10*3/uL Normal 0-0.9 [facility] Comment on above: Performed By: #### C BCA, HA1C, CMP, 36285-0 ####[facility] ([id number])[address], [place] [address] Monocytes/100 WBC (Bld) 4.9 % Normal [facility] Comment on above: Performed By: #### C BCA, HA1C, CMP, 53447-0 ####[facility] ([id number])[address], [place] [address] Neutrophils/100 WBC (Bld) 62.0 % Normal [facility] Comment on above: Performed By: #### C BCA, HA1C, CMP, 42592-4 ####[facility] ([id number])[address], [place] [address] Platelet mean volume (Bld) [Entitic vol] 8.7 fL Normal 7-12 [facility] Comment on above: Performed By: #### C BCA, HA1C, CMP, 38379-7 ####[facility] ([id number])[address], [address], [place] [address] Platelets (Bld) [#/Vol] 245 10*3/uL Normal 150-450 [facility] Comment on above: Performed By: #### C BCA, HA1C, CMP, 77257-4 ####[facility] ([id number])[address], [address], [place] [address] RBC COUNT 4.89 X10E12/L Normal 3.80-5.20 [facility] Comment on above: Performed By: #### C BCA, HA1C, CMP, 11360-4 ####[facility] ([id number])[address] [address] WBC (Bld) [#/Vol] 8.6 10*3/uL Normal 4.0-11.0 [facility] Comment on above: Performed By: #### C BCA, HA1C, CMP, 03177-0 ####[facility] ([id number])[address], [address] [place] [address] COMPREHENSIVE METABOLIC PANE Charles 06-12-2024 Albumin [Mass/Vol] 4.1 g/dL Normal 3.2-5.3 [facility] Comment on above: Performed By: #### C BCA, HA1C, CMP, 99840-8 ####[facility] ([id number])[address] [address] [place] [address] ALP [Catalytic activity/Vol] 56 U/L Normal 39-130 [facility] Comment on above: Performed By: #### C BCA, HA1C, CMP, 89689-8 ####[facility] ([id number])[address] [address] [place] [address] ALT [Catalytic activity/Vol] 18 U/L Normal 0-31 [facility] Comment on above: Performed By: #### C BCA, HA1C, CMP, 13553-2 ####[facility] ([id number])[address] [address] Anion gap [Moles/Vol] 10 mmol/L Normal 5-15 [facility] Comment on above: Performed By: #### C BCA, HA1C, CMP, 81483-7 ####[facility] ([id number])[address], [place] [address] AST [Catalytic activity/Vol] 17 U/L Normal 0-41 [facility] Comment on above: Performed By: #### C BCA, HA1C, CMP, 73566-7 ####[facility] ([id number])[address] [address], [place] [address] Bilirubin [Mass/Vol] 0.6 mg/dL Normal 0.3-1.2 [facility] Comment on above: Performed By: #### C BCA, HA1C, CMP, 62522-4 ####[facility] ([id number])[address] [address], [place] [address] Calcium [Mass/Vol] 9.2 mg/dL Normal 8.5-10.5 [facility] Comment on above: Performed By: #### C BCA, HA1C, CMP, 79320-6 ####[facility] ([id number])[address] [address], [place] [address] Chloride [Moles/Vol] 102 mmol/L Normal 98-109 [facility] Comment on above: Performed By: #### C BCA, HA1C, CMP, 48138-4 ####[facility] ([id number])[address] [address], [place] [address] CO2 [Moles/Vol] 29 mmol/L Normal 22-32 [facility] Comment on above: Performed By: #### C BCA, HA1C, CMP, 28720-2 ####[facility] ([id number])[address] [address], [place] [address] Creatinine [Mass/Vol] 0.54 mg/dL Normal 0.40-1.00 [facility] Comment on above: Result Comment: METH OD TRACEABLE TO IDMS STANDARD Performed By: #### C BCA, HA1C, CMP, 78920-5 ####[facility] ([id number])[address], [place] [address] eGFR (CKD-EPI) NON-RACE DEPENDENT >90 Normal >59 [facility] Comment on above: Result Comment: Repo rted eGFR is based on theCKD-EPI 2020 equation that doesnot use a race coefficient. Performed By: #### C BCA, HA1C, CMP, 68324-7 ####[facility] ([id number])[address] [address], [place] [address] Glucose [Mass/Vol] 105 mg/dL High 65-99 [facility] Comment on above: Performed By: #### C BCA, HA1C, CMP, 42320-6 ####[facility] ([id number])0 [address] [address] [address] Potassium [Moles/Vol] 4.2 mmol/L Normal 3.5-5.0 [facility] Comment on above: Performed By: #### C BCA, HA1C, CMP, 10964-6 ####[facility] ([id number])[address] [address] Protein [Mass/Vol] 7.1 g/dL Normal 6.0-8.0 [facility] Comment on above: Performed By: #### C BCA, HA1C, CMP, 00478-4 ####[facility] ([id number])[address] [address] Sodium [Moles/Vol] 141 mmol/L Normal 134-146 [facility] Comment on above: Performed By: #### C BCA, HA1C, CMP, 65927-7 ####[facility] ([id number])[address] [place] [address] Urea nitrogen [Mass/Vol] 15 mg/dL Normal 5-23 [facility] Comment on above: Performed By: #### C BCA, HA1C, CMP, 11029-4 ####[facility] ([id number])[address] [address] HGB A1C (GLYCO-HGB)on 2023 Glucose [Mass/Vol] 128 mg/dL Normal [facility] Comment on above: Performed By: #### C BCA, HA1C, CMP, 87863-9 ####[facility] ([id number])[address] [address] HbA1c (Bld) [Mass fraction] 6.1 % High 4.4-5.6 [facility] Comment on above: Result Comment: NOTE ADA Guidelines Result HgbA1c Normal : less than 5.7 % Prediabetes : 5.7 % to 6.4 % Diabetes : > 6.4 %Use with caution in patients with abnormal hemoglobin variants asthe half-life of red blood cells and in vivo glycation rates areaffected. Performed By: #### C BCA, HA1C, CMP, 39693-4 ####[facility] ([id number])[address] [address] Lipid 1996 panelon Cholesterol [Mass/Vol] 202 mg/dL High 150-200 [facility] Comment on above: Performed By: #### C BCA, HA1C, CMP, 69982-7 ####[facility] ([id number])[address] [address] Cholesterol in HDL [Mass/Vol] 46 mg/dL Normal >39 [facility] Comment on above: Result Comment: HDL <40 mg/dL - High RiskHDL > or = 40mg/dL- DesirableHDL >60 mg/dL - Negative Risk Performed By: #### C BCA, HA1C, CMP, 73443-5 ####[facility] ([id number])[address] [address] [address] Cholesterol in LDL [Mass/Vol] 103 mg/dL Normal <130 [facility] Comment on above: Result Comment: LDL <100 mg/dL - DesirableLDL >160 mg/dL - High Risk Performed By: #### C BCA, HA1C, CMP, 76549-4 ####[facility] ([id number])[address], [address] [place] [address] Cholesterol in VLDL [Mass/Vol] 53 mg/dL High 0-30 [facility] Comment on above: Performed By: #### C BCA, HA1C, CMP, 71443-3 ####[facility] ([id number])[address], [address] [place] [address], [place] [address] CHOLESTEROL:HDL 4.4 Normal 1.0-5.0 [facility] Comment on above: Performed By: #### C BCA, HA1C, CMP, 21351-5 ####[facility] ([id number])[address], [address] [place] [address], [place] [address] Triglyceride [Mass/Vol] 267 mg/dL High 27-150 [facility] Comment on above: Performed By: #### C BCA, HA1C, CMP, 42053-0 ####[facility] ([id number])[address] [address] [place] [address] XR CHEST 2 VWSon 06-04-2024 XR CHEST 2 VWS Normal [facility] BASIC METABOLIC PANLon 06-03 Anion gap [Moles/Vol] 9 mmol/L Normal 5-15 [facility] Comment on above: Performed By: #### B MP ####[facility] ([id number])[address] [address], [place] [address] Calcium [Mass/Vol] 8.9 mg/dL Normal 8.5-10.5 [facility] Comment on above: Performed By: #### B MP ####[facility] ([id number])[address] [address], [place] [address] Chloride [Moles/Vol] 104 mmol/L Normal 98-109 [facility] Comment on above: Performed By: #### B MP ####[facility] ([id number])[address] [address] [place] [address] CO2 [Moles/Vol] 29 mmol/L Normal 22-32 [facility] Comment on above: Performed By: #### B MP ####[facility] ([id number])[address] [address], [place] [address] Creatinine [Mass/Vol] 0.54 mg/dL Normal 0.40-1.00 [facility] Comment on above: Result Comment: METH OD TRACEABLE TO IDMS STANDARD Performed By: #### B MP ####[facility] ([id number])[address] [address], [place] [address] eGFR (CKD-EPI) NON-RACE DEPENDENT >90 Normal >59 [facility] Comment on above: Result Comment: Repo rted eGFR is based on theCKD-EPI 2020 equation that doesnot use a race coefficient. Performed By: #### B MP ####[facility] ([id number])[address] [address], [place] [address] Glucose [Mass/Vol] 114 mg/dL High 65-99 [facility] Comment on above: Performed By: #### B MP ####[facility] ([id number])[address] [address], [place] [address] Potassium [Moles/Vol] 4.0 mmol/L Normal 3.5-5.0 [facility] Comment on above: Performed By: #### B MP ####[facility] ([id number])[address], [place] [address] Sodium [Moles/Vol] 142 mmol/L Normal 134-146 [facility] Comment on above: Performed By: #### B MP ####[facility] ([id number])[address], [place] [address] Urea nitrogen [Mass/Vol] 12 mg/dL Normal 5-23 [facility] Comment on above: Performed By: #### B MP ####[facility] ([id number])[address], [place] [address] URINALYSISon 06-03-2024 Bilirubin Ql (U) Negative Normal NEG [facility] Comment on above: Performed By: #### U A ####[facility] ([id number])[address], [address], [place] [address] BLOOD/HGB Small Abnormal NEG [facility] Comment on above: Performed By: #### U A ####[facility] ([id number])[address], [place] [address] Color (U) YELLOW Normal YELLOW [facility] Comment on above: Performed By: #### U A ####[facility] ([id number])[address], [place] [address] Glucose Ql (U) Negative Normal NEG [facility] Comment on above: Performed By: #### U A ####[facility] ([id number])[address], [place] [address] Ketones Ql (U) Negative Normal NEG [facility] Comment on above: Performed By: #### U A ####[facility] ([id number])[address], [place] [address] Leukocyte esterase Test strip Ql (U) Negative Normal NEG [facility] Comment on above: Performed By: #### U A ####[facility] ([id number])[address], [address] [place] [address] MUCOUS PRESENT Abnormal NONE [facility] Comment on above: Performed By: #### U A ####[facility] ([id number])[address] [address] [place] [address] Nitrite Ql (U) Negative Normal NEG [facility] Comment on above: Performed By: #### U A ####[facility] ([id number])[address] [address] [place] [address] pH (U) 5.5 [pH] Normal 5.0-8.5 [facility] Comment on above: Performed By: #### U A ####[facility] ([id number])[address] [address] [place] [address] Protein Ql (U) Negative Normal NEG [facility] Comment on above: Performed By: #### U A ####[facility] ([id number])[address] [address] [place] [address] R.B.CELLS 18 /hpf High 0-5 [facility] Comment on above: Performed By: #### U A ####[facility] ([id number])[address] [address] [place] [address], [place] [address] Specific gravity (U) [Rel density] 1.021 Normal 1.003-1.03 5 [facility] Comment on above: Performed By: #### U A ####[facility] ([id number])[address], [address] [place] [address], [place] [address] SQUAMOUS EPITHELIUM 5 /hpf Normal 0-5 [facility] Comment on above: Performed By: #### U A ####[facility] ([id number])[address] [facility] [address] [place] [address] TURBIDITY CLEAR Normal CLEAR [facility] Comment on above: Performed By: #### U A ####[facility] ([id number])[address] [place] [address] Urobilinogen (U) [Mass/Vol] mg/dL Normal <1.1 [facility] Comment on above: Performed By: #### U A ####[facility] ([id number])[address] [place] [address] W.B.CELLS 4 /hpf Normal 0-5 [facility] Comment on above: Performed By: #### U A ####[facility] ([id number])[address] [place] [address] URINE CULTUREon 06-03-2024 Bacteria identified Cx Nom (U) CULTURE RESULTS 10,000 to 50,000 ORGANISMS/mL NORMAL URO GENITAL TK Normal [facility] Comment on above: Performed By: #### 6 30-4 ####[facility] ([id number])[address] [place] [address] Cytologyon 05-04-2024 Cytology Normal [facility] Comment on above: Result Comment: [facility] [address] [place] [address] Cytology ConsultationPatient Name:NIKOLE BANERJEE:1970 (Age: 53)Gender:FTaken:05/04/2024eported:05/06/2024 16:04Physician(s):Bo Dawson M.D. ([phone])Copy To: Rec. #:[id number]: #[id number] Cytologic DiagnosisUrine:Negative for high-grade urothelial cell carcinoma.ssi/05/06/2024Interpretation performed [facility] [employer], [address] [place] [address], License number: [id number].Electronically Signed Out By Marco Bella M.D.Clinical HistoryGross hematuria (R31.0).Gross DescriptionReceived was 40mL of cloudy dark yellow fluid unfixed labeled as Errol, 1970, per order specimen is urine . CytoLyt added in lab.Source of Specimen Urine Non [employer] Code(s):1; 07449 XR ABDOMEN AP 1 VWon 04-30- 024 XR ABDOMEN AP 1 VW Normal [facility] Procedure Visiton 01-01-2024 Procedure Visit [id number] Nara Banerjee gy S 1970 F Date Provider Department Center 01/01/2024 421CARLIE HEBERT MP No family history on file Level of Service:76582 [place] OFFICE/OUTPT VISIT,PROCEDURE ONLY (GC) Reason for Visit and Comments: Follow-up [140586] - 3rd Supartz injection Injections [186] - 3rd Supartz injection [facility] Procedure Visiton 12-25-2023 Procedure Visit [id number] Nara Banerjee gy S 1970 F Date Provider Department Center 12/25/2023 421CARLIE HEBERT MP No family history on file Level of Service:59209 [place] OFFICE/OUTPT VISIT,PROCEDURE ONLY (GC) Reason for Visit and Comments: Injections [186] - 2nd Supartz injection Pain [136] - 2nd Supartz injection Normal [facility] Procedure Visiton 12-18-2023 Procedure Visit [id number] Nara Banerjee gy S 1970 F Date Provider Department Center 12/18/2023 421CARLIE HEBERT MPRTHO No family history on file Level of Service:89518 [place] OFFICE/OUTPT VISIT,PROCEDURE ONLY (GC) Reason for Visit and Comments: Edema [[id number]] - [facility] Lower leg is red and swollen a little warm to the tough, she has been seeing her vascular doctor, treatment w/steroid cream Pain [136] - [facility] Lower leg is red and swollen a little warm to the tough, she has been seeing her vascular doctor, treatment w/steroid cream Injections [186] - [facility] Lower leg is red and swollen a little warm to the tough, she has been seeing her vascular doctor, treatment w/steroid cream [facility] 36on 11-21-2023 36 C9 is now approved w ith extension date of 12/18/23 for Supartz injections. Patient has upcoming appointment scheduled. [facility] Telephoneon 11-21-2023 Telephone [id number] Nara Banerjee 1970 F Date Provider Department Center 11/21/2023 421-CARLIE BROWN MP ORTHO MPORTHO No family history on file [facility] CBC AND AUTO DIFFon 11-14-19 24 Band form neutrophils/100 WBC (Bld) 4.0 % Normal [facility] Comment on above: Performed By: #### C SHAWN [facility], ####[facility] ([id number])[address] [place] [address] Erythrocyte distribution width (RBC) [Ratio] 15.9 % High 11.5-15.0 [facility] Comment on above: Performed By: #### C SHAWN [facility], 46031-9 ####[facility] ([id number])[address] [place] [address] Hematocrit (Bld) [Volume fraction] 44.7 % Normal 35-47 [facility] Comment on above: Performed By: #### Darian ESCOBAR [facility], 73201-8 ####[facility] ([id number])[address] [place] [address] Hemoglobin (Bld) [Mass/Vol] 14.5 g/dL Normal 11.7-15.5 [facility] Comment on above: Performed By: #### C SHAWN [facility], 22204-2 ####[facility] ([id number])[address] [place] [address] LYMPHOCYTE, ATYPICAL 2.0 % Normal [facility] Comment on above: Performed By: #### C SHAWN [facility], ####[facility] ([id number])[address] [place] [address] Lymphocytes (Bld) [#/Vol] 0.9 10*3/uL Low 1.0-3.5 [facility] Comment on above: Performed By: #### Darian ESCOBAR [facility], ####[facility] ([id number])[address] [place] [address] Lymphocytes/100 WBC (Bld) 6.0 % Normal [facility] Comment on above: Performed By: #### Darian ESCOBAR CMP, ####[facility] ([id number])[address] [place] [address] MCH (RBC) [Entitic mass] 29.3 pg Normal 27-34 [facility] Comment on above: Performed By: #### Darian ESCOBAR [facility], ####[facility] ([id number])[address] [place] [address] MCHC (RBC) [Mass/Vol] 32.4 g/dL Normal 32-36 [facility] Comment on above: Performed By: #### Darian ESCOBAR CMP, ####[facility] ([id number])[address] [place] [address] MCV (RBC) [Entitic vol] 91 fL Normal 80-100 [facility] Comment on above: Performed By: #### Darian ESCOBAR CMP, ####[facility] ([id number])[address] [place] [address] Monocytes (Bld) [#/Vol] 1.3 10*3/uL High 0-0.9 [facility] Comment on above: Performed By: #### Darian ESCOBAR CMP, 34033-5 ####[facility] ([id number])[address] [place] [address] Monocytes/100 WBC (Bld) 11.0 % Normal [facility] Comment on above: Performed By: #### C SHAWN, CMP, 98123-0 ####[facility] ([id number])[address] [place] [address] MYELOCYTE 1.0 % Normal [facility] Comment on above: Performed By: #### Darian ESCOBAR, CMP, 64891-0 ####[facility] ([id number])[address] [place] [address] Neutrophils (Bld) [#/Vol] 9.5 10*3/uL High 1.5-6.6 [facility] Comment on above: Performed By: #### Darian ESCOBAR, CMP, ####[facility] ([id number])[address] [place] [address] Platelet mean volume (Bld) [Entitic vol] 9.0 fL Normal 7-12 [facility] Comment on above: Performed By: #### Darian ESCOBAR, CMP, 12753-0 ####[facility] ([id number])[address] [place] [address] Platelets (Bld) [#/Vol] 255 10*3/uL Normal 150-450 [facility] Comment on above: Performed By: #### Darian ESCOBAR, CMP, ####[facility] ([id number])[address] [place] [address]91 RBC COUNT 4.94 X10E12/L Normal 3.80-5.20 [facility] Comment on above: Performed By: #### Darian ESCOBAR, CMP, ####[facility] ([id number])[address] [place] [address] [place] [address] RBC morphology finding Nom (Bld) NORMAL Normal [facility] Comment on above: Performed By: #### Darian ESCOBAR CMP, 92548-1 ####[facility] ([id number])[address] [place] [address] SEG NEUTROPHIL 76.0 % Normal [facility] Comment on above: Performed By: #### Darian ESCOBAR CMP, 58899-6 ####[facility] ([id number])[address] [place] [address] WBC (Bld) [#/Vol] 11.8 10*3/uL High 4.0-11.0 [facility] Comment on above: Performed By: #### Darian ESCOBAR CMP, 49231-3 ####[facility] ([id number])[address] [place] [address] CBC auto differentialon 10-28 Band form neutrophils/100 WBC (Bld) 4.0 % [facility] Erythrocyte distribution width (RBC) [Ratio] 15.9 % High 11.5 - 15.0 % [facility] Hematocrit (Bld) [Volume fraction] 44.7 % 35 - 47 % [facility] Hemoglobin (Bld) [Mass/Vol] 14.5 g/dL 11.7 - 15.5 g/dL [facility] Interpretation and review of laboratory results Abnormal [facility] Lymphocytes (Bld) [#/Vol] 0.9 10*3/uL Low [facility] Lymphocytes/100 WBC (Bld) 6.0 % [facility] MCH (RBC) [Entitic mass] 29.3 pg 27 - 34 pg [facility] MCHC (RBC) [Mass/Vol] 32.4 g/dL 32 - 36 g/dL [facility] MCV (RBC) [Entitic vol] 91 fL 80 - 100 fL [facility] Monocytes (Bld) [#/Vol] 1.3 10*3/uL High [facility] Monocytes/100 WBC (Bld) 11.0 % [facility] Myelocytes/100 WBC (Bld) 1.0 % [facility] Neutrophils (Bld) [#/Vol] 9.5 10*3/uL High [facility] Platelet mean volume (Bld) [Entitic vol] 9.0 fL 7 - 12 fL [facility] Platelets (Bld) [#/Vol] 255 10*3/uL [facility] Polymorphonuclear cells/100 WBC (Bld) NORMAL [facility] RBC (Bld) [#/Vol] 4.94 10*6/uL [facility] Segmented neutrophils/100 WBC (Bld) 76.0 % [facility] Variant lymphocytes/100 WBC (Bld) 2.0 % [facility] WBC corrected for nucl RBC Auto (Bld) [#/Vol] 11.8 High [facility] COMPREHENSIVE METABOLIC PANE Charles 11-14-2023 Albumin [Mass/Vol] 3.0 g/dL Low 3.2-5.3 [facility] Comment on above: Performed By: #### C BCA, CMP, 35532-9 ####[facility] ([id number])[address] [place] [address] ALP [Catalytic activity/Vol] 58 U/L Normal 39-130 [facility] Comment on above: Performed By: #### C BCA, CMP, 44276-6 ####[facility] ([id number])[address] [place] [address]223 ALT [Catalytic activity/Vol] 24 U/L Normal 0-31 [facility] Comment on above: Performed By: #### C BCA, CMP, 44462-2 ####[facility] ([id number])[address] [place] [address] Anion gap [Moles/Vol] 10 mmol/L Normal 5-15 [facility] Comment on above: Performed By: #### C BCA, CMP, 97686-7 ####[facility] ([id number])[address] [place] [address] 90267 AST [Catalytic activity/Vol] 18 U/L Normal 0-41 [facility] Comment on above: Performed By: #### C ALONDRA ESCOBAR, ####[facility] ([id number])[address] [place] [address] 19342 Bilirubin [Mass/Vol] 0.3 mg/dL Normal 0.3-1.2 [facility] Comment on above: Performed By: #### C ALONDRA ESCOBAR, ####[facility] ([id number])[address] [place] [address] 36364 Calcium [Mass/Vol] 8.6 mg/dL Normal 8.5-10.5 [facility] Comment on above: Performed By: #### C ALONDRA ESCOBAR, ####[facility] ([id number])[address] [place] [address] 19591 Chloride [Moles/Vol] 95 mmol/L Low 98-109 [facility] Comment on above: Performed By: #### C SHAWN [facility], ####[facility] ([id number])[address] [place] [address] 09721 CO2 [Moles/Vol] 34 mmol/L High 22-32 [facility] Comment on above: Performed By: #### C ALONDRA ESCOBAR, ####[facility] ([id number])[address] [place] [address] 30121 Creatinine [Mass/Vol] 0.72 mg/dL Normal 0.40-1.00 [facility] Comment on above: Result Comment: METH OD TRACEABLE TO IDMS STANDARD Performed By: #### C ALONDRA ESCOBAR, ####[facility] ([id number])[address] [place] [address]6523 eGFR (CKD-EPI) NON-RACE DEPENDENT >90 Normal >59 [facility] Comment on above: Result Comment: Repo rted eGFR is based on theCKD-EPI 2020 equation that doesnot use a race coefficient. Performed By: #### C ALONDRA ESCOBAR, ####[facility] ([id number])[address] [place] [address] [place] [address] Glucose [Mass/Vol] 190 mg/dL High 65-99 [facility] Comment on above: Performed By: #### C ALONDRA ESCOBAR, ####[facility] ([id number])[address] [place] [address] 19429 Potassium [Moles/Vol] 4.6 mmol/L Normal 3.5-5.0 [facility] Comment on above: Performed By: #### C ALONDRA ESCOBAR, ####[facility] ([id number])[address] [place] [address] [place] [address] Protein [Mass/Vol] 7.0 g/dL Normal 6.0-8.0 [facility] Comment on above: Performed By: #### C ALONDRA ESCOBAR, 07872-9 ####[facility] ([id number])[address] [place] [address] 19323 Sodium [Moles/Vol] 139 mmol/L Normal 134-146 [facility] Comment on above: Performed By: #### C ALONDRA ESCOBAR, 09606-2 ####[facility] ([id number])[address] [place] [address] [place] [address] Urea nitrogen [Mass/Vol] 22 mg/dL Normal 5-23 [facility] Comment on above: Performed By: #### C ALONDRA ESCOBAR, 11902-6 ####[facility] ([id number])[address] [place] [address] [place] [address] Comprehensive metabolic pane charles 11-14-2023 Albumin [Mass/Vol] 3.0 g/dL Low 3.2 - 5.3 g/dL [facility] ALP [Catalytic activity/Vol] 58 U/L 39 - 130 U/L [facility] ALT No additional P-5'-P [Catalytic activity/Vol] 24 U/L 0 - 31 U/L [facility] Anion gap [Moles/Vol] 10 mmol/L 5 - 15 mmol/L [facility] AST [Catalytic activity/Vol] 18 U/L 0 - 41 U/L [facility] Bilirubin [Mass/Vol] 0.3 mg/dL 0.3 - 1.2 mg/dL [facility] Calcium [Mass/Vol] 8.6 mg/dL 8.5 - 10. 5 mg/dL [facility] Chloride [Moles/Vol] 95 mmol/L Low 98 - 109 mmol/L [facility] CO2 [Moles/Vol] 34 mmol/L High 22 - 32 mmol/L [facility] Creatinine [Mass/Vol] 0.72 mg/dL 0.40 - 1.00 mg/dL [facility] Comment on above: METHOD TRACEABLE TO [facility] STANDARD eGFR (CKD-EPI)non-race dependent - PINF [facility] Comment on above: Reported eGFR is based on the CKD-EPI 2020 equation that does not use a race coefficient. Glucose [Mass/Vol] 190 mg/dL High 65 - 99 mg/dL [facility] Interpretation and review of laboratory results Abnormal [facility] Potassium [Moles/Vol] 4.6 mmol/L 3.5 - 5.0 mmol/L [facility] Protein [Mass/Vol] 7.0 g/dL 6.0 - 8.0 g/dL [facility] Sodium [Moles/Vol] 139 mmol/L 134 - 146 mmol/L [facility] Urea nitrogen [Mass/Vol] 22 mg/dL 5 - 23 mg/dL [facility] Glucose Glucometer (BldC) [M ass/Vol]on 11-14-2023 Glucose [Mass/Vol] 174 mg/dL High 65 - 99 mg/dL [facility] Interpretation and review of laboratory results Abnormal [facility] Glucose [Mass/Vol] 174 mg/dL High 65-99 [facility] Glucose [Mass/Vol] 172 mg/dL High 65 - 99 mg/dL [facility] Interpretation and review of laboratory results Abnormal [facility] Glucose [Mass/Vol] 172 mg/dL High 65-99 [facility] Glucose [Mass/Vol] 116 mg/dL High 65 - 99 mg/dL [facility] Interpretation and review of laboratory results Abnormal [facility] Glucose [Mass/Vol] 116 mg/dL High 65-99 [facility] MAGNESIUMon 11-14-2023 Magnesium [Mass/Vol] 2.0 mg/dL Normal 1.8-2.6 [facility] Comment on above: Performed By: #### Darian ESCOBAR CMP, 41331-7 ####[facility] ([id number])[address] [place] [address] 08008 Magnesiumon 11-14-2023 Magnesium [Mass/Vol] 2.0 mg/dL 1.8 - 2.6 mg/dL [facility] No Panel Informationon 11-14 [facility] CBC AND AUTO DIFFon 11-13-19 24 ABSOLUTE BASOPHIL 0.0 X10E9/L Normal 0.0-0.2 [facility] Comment on above: Performed By: #### Darian ESCOBAR CMP, , 22873-3 ####[facility] ([id number])[address] [place] [address] 35519 ABSOLUTE NEUTROPHIL 10.0 X10E9/L High 1.5-6.6 [facility] Comment on above: Performed By: #### Darian ESCOBAR CMP, , 80629-9 ####[facility] ([id number])[address] [place] [address] 73326 Basophils/100 WBC (Bld) 0.3 % Normal [facility] Comment on above: Performed By: #### Darian ESCOBAR CMP, , 74595-8 ####[facility] ([id number])[address] [place] [address] 79436 Eosinophils (Bld) [#/Vol] 0.0 10*3/uL Normal 0.0-0.4 [facility] Comment on above: Performed By: #### C SHAWN CMP, , 14670-7 ####[facility] ([id number])[address] [place] [address] 33544 Eosinophils/100 WBC (Bld) 0.0 % Normal [facility] Comment on above: Performed By: #### Darian ESCOBAR, CMP, , 49478-8 ####[facility] ([id number])[address] [place] [address] 70842 Erythrocyte distribution width (RBC) [Ratio] 15.8 % High 11.5-15.0 [facility] Comment on above: Performed By: #### Darian ESCOBAR CMP, , 54468-5 ####[facility] ([id number])[address] [place] [address] 41870 Hematocrit (Bld) [Volume fraction] 45.8 % Normal 35-47 [facility] Comment on above: Performed By: #### Darian ESCOBAR CMP, , 25044-6 ####[facility] ([id number])[address] [place] [address] 55022 Hemoglobin (Bld) [Mass/Vol] 14.7 g/dL Normal 11.7-15.5 [facility] Comment on above: Performed By: #### C SHAWN, CMP, , 96040-2 ####[facility] ([id number])[address] [place] [address] 48580 Lymphocytes (Bld) [#/Vol] 1.5 10*3/uL Normal 1.0-3.5 [facility] Comment on above: Performed By: #### C BCA, CMP, , 75362-2 ####[facility] ([id number])[address] [place] [address] 85643 Lymphocytes/100 WBC (Bld) 11.7 % Normal [facility] Comment on above: Performed By: #### C BCA, CMP, , 22922-3 ####[facility] ([id number])[address] [place] [address] 36365 MCH (RBC) [Entitic mass] 29.0 pg Normal 27-34 [facility] Comment on above: Performed By: #### C BCA, CMP, , 53948-3 ####[facility] ([id number])[address] [place] [address] 29678 MCHC (RBC) [Mass/Vol] 32.0 g/dL Normal 32-36 [facility] Comment on above: Performed By: #### C BCA, CMP, , 78080-7 ####[facility] ([id number])[address] [place] [address] 25052 MCV (RBC) [Entitic vol] 91 fL Normal 80-100 [facility] Comment on above: Performed By: #### C BCA, CMP, , 57708-8 ####[facility] ([id number])[address] [place] [address] 24987 Monocytes (Bld) [#/Vol] 0.9 10*3/uL Normal 0-0.9 [facility] Comment on above: Performed By: #### C BCA, CMP, , 07513-2 ####[facility] ([id number])[address] [place] [address] 67640 Monocytes/100 WBC (Bld) 7.2 % Normal [facility] Comment on above: Performed By: #### C BCA, CMP, , 20746-4 ####[facility] ([id number])[address] [place] [address] 37741 Neutrophils/100 WBC (Bld) 80.8 % Normal [facility] Comment on above: Performed By: #### Darian ESCOBAR, CMP, , 07978-8 ####[facility] ([id number])[address] [place] [address] 02069 Platelet mean volume (Bld) [Entitic vol] 9.0 fL Normal 7-12 [facility] Comment on above: Performed By: #### Darian BCA, CMP, , 59035-3 ####[facility] ([id number])[address] [place] [address] 02284 Platelets (Bld) [#/Vol] 215 10*3/uL Normal 150-450 [facility] Comment on above: Performed By: #### Darian ESCOBAR, CMP, , 28519-6 ####[facility] ([id number])[address] [place] [address] 87678 RBC COUNT 5.06 X10E12/L Normal 3.80-5.20 [facility] Comment on above: Performed By: #### Darian ESCOBAR, CMP, , 57462-2 ####[facility] ([id number])[address] [place] [address] 05696 WBC (Bld) [#/Vol] 12.4 10*3/uL High 4.0-11.0 [facility] Comment on above: Performed By: #### Darian BCA, CMP, , 48626-4 ####[facility] ([id number])[address] [place] [address] 36628 CBC auto differentialon 10-28 Basophils (Bld) [#/Vol] 0.0 10*3/uL [facility] Basophils/100 WBC (Bld) 0.3 % [facility] Eosinophils (Bld) [#/Vol] 0.0 10*3/uL [facility] Eosinophils/100 WBC (Bld) 0.0 % [facility] Erythrocyte distribution width (RBC) [Ratio] 15.8 % High 11.5 - 15.0 % [facility] Hematocrit (Bld) [Volume fraction] 45.8 % 35 - 47 % [facility] Hemoglobin (Bld) [Mass/Vol] 14.7 g/dL 11.7 - 15.5 g/dL [facility] Interpretation and review of laboratory results Abnormal [facility] Lymphocytes (Bld) [#/Vol] 1.5 10*3/uL [facility] Lymphocytes/100 WBC (Bld) 11.7 % [facility] MCH (RBC) [Entitic mass] 29.0 pg 27 - 34 pg [facility] MCHC (RBC) [Mass/Vol] 32.0 g/dL 32 - 36 g/dL [facility] MCV (RBC) [Entitic vol] 91 fL 80 - 100 fL [facility] Monocytes (Bld) [#/Vol] 0.9 10*3/uL [facility] Monocytes/100 WBC (Bld) 7.2 % [facility] Neutrophils (Bld) [#/Vol] 10.0 10*3/uL High [facility] Neutrophils/100 WBC (Bld) 80.8 % [facility] Platelet mean volume (Bld) [Entitic vol] 9.0 fL 7 - 12 fL [facility] Platelets (Bld) [#/Vol] 215 10*3/uL [facility] RBC (Bld) [#/Vol] 5.06 10*6/uL [facility] WBC corrected for nucl RBC Auto (Bld) [#/Vol] 12.4 High [facility] COMPREHENSIVE METABOLIC PANE Charles 11-13-2023 Albumin [Mass/Vol] 3.1 g/dL Low 3.2-5.3 [facility] Comment on above: Performed By: #### C BCA, CMP, , 77975-0 ####[facility] ([id number])[address] [place] [address] 10224 ALP [Catalytic activity/Vol] 59 U/L Normal 39-130 [facility] Comment on above: Performed By: #### C BCA, CMP, , 11733-2 ####[facility] ([id number])[address] [place] [address] 66969 ALT [Catalytic activity/Vol] 24 U/L Normal 0-31 [facility] Comment on above: Performed By: #### C BCA, CMP, , 56516-9 ####[facility] ([id number])[address] [place] [address] 53199 Anion gap [Moles/Vol] 12 mmol/L Normal 5-15 [facility] Comment on above: Performed By: #### C BCA, CMP, , 64696-5 ####[facility] ([id number])[address] [place] [address] 97378 AST [Catalytic activity/Vol] 19 U/L Normal 0-41 [facility] Comment on above: Performed By: #### C BCA, CMP, , 32816-0 ####[facility] ([id number])[address] [place] [address] [place] [address] Bilirubin [Mass/Vol] 0.7 mg/dL Normal 0.3-1.2 [facility] Comment on above: Performed By: #### C BCA, CMP, , 66638-7 ####[facility] ([id number])[address] [place] [address] 64297 Calcium [Mass/Vol] 8.9 mg/dL Normal 8.5-10.5 [facility] Comment on above: Performed By: #### C BCA, CMP, , 67237-9 ####[facility] ([id number])[address] [place] [address] 25547 Chloride [Moles/Vol] 95 mmol/L Low 98-109 [facility] Comment on above: Performed By: #### C ALONDRA ESCOBAR, , 07484-9 ####[facility] ([id number])[address] [place] [address] 20587 CO2 [Moles/Vol] 32 mmol/L Normal 22-32 [facility] Comment on above: Performed By: #### C ALONDRA ESCOBAR, , 60775-0 ####[facility] ([id number])[address] [place] [address] 10140 Creatinine [Mass/Vol] 0.66 mg/dL Normal 0.40-1.00 [facility] Comment on above: Result Comment: METH OD TRACEABLE TO IDMS STANDARD Performed By: #### C ALONDRA ESCOBAR, , 26517-6 ####[facility] ([id number])[address] [place] [address] 88120 eGFR (CKD-EPI) NON-RACE DEPENDENT >90 Normal >59 [facility] Comment on above: Result Comment: Repo rted eGFR is based on theCKD-EPI 2020 equation that doesnot use a race coefficient. Performed By: #### C ALONDRA ESCOBAR, , 10218-0 ####[facility] ([id number])[address] [place] [address] 36594 Glucose [Mass/Vol] 226 mg/dL High 65-99 [facility] Comment on above: Performed By: #### C SHAWN CMP, , 57225-9 ####[facility] ([id number])[address] [place] [address] 05782 Potassium [Moles/Vol] 4.6 mmol/L Normal 3.5-5.0 [facility] Comment on above: Performed By: #### C BCA, CMP, , 66210-2 ####[facility] ([id number])[address] [place] [address] 58487 Protein [Mass/Vol] 7.1 g/dL Normal 6.0-8.0 [facility] Comment on above: Performed By: #### C BCA, CMP, , 72502-4 ####[facility] ([id number])[address] [place] [address] 84679 Sodium [Moles/Vol] 139 mmol/L Normal 134-146 [facility] Comment on above: Performed By: #### Darian BCA, CMP, , 93426-6 ####[facility] ([id number])[address] [place] [address] 48277 Urea nitrogen [Mass/Vol] 20 mg/dL Normal 5-23 [facility] Comment on above: Performed By: #### C BCA, CMP, , 91757-4 ####[facility] ([id number])[address] [place] [address] 42204 Comprehensive metabolic pane charles 11-13-2023 Albumin [Mass/Vol] 3.1 g/dL Low 3.2 - 5.3 g/dL [facility] ALP [Catalytic activity/Vol] 59 U/L 39 - 130 U/L [facility] ALT No additional P-5'-P [Catalytic activity/Vol] 24 U/L 0 - 31 U/L [facility] Anion gap [Moles/Vol] 12 mmol/L 5 - 15 mmol/L [facility] AST [Catalytic activity/Vol] 19 U/L 0 - 41 U/L [facility] Bilirubin [Mass/Vol] 0.7 mg/dL 0.3 - 1.2 mg/dL [facility] Calcium [Mass/Vol] 8.9 mg/dL 8.5 - 10. 5 mg/dL [facility] Chloride [Moles/Vol] 95 mmol/L Low 98 - 109 mmol/L [facility] CO2 [Moles/Vol] 32 mmol/L 22 - 32 mmol/L [facility] Creatinine [Mass/Vol] 0.66 mg/dL 0.40 - 1.00 mg/dL [facility] Comment on above: METHOD TRACEABLE TO [facility] STANDARD eGFR (CKD-EPI)non-race dependent - PINF [facility] Comment on above: Reported eGFR is based on the CKD-EPI 2020 equation that does not use a race coefficient. Glucose [Mass/Vol] 226 mg/dL High 65 - 99 mg/dL [facility] Interpretation and review of laboratory results Abnormal [facility] Potassium [Moles/Vol] 4.6 mmol/L 3.5 - 5.0 mmol/L [facility] Protein [Mass/Vol] 7.1 g/dL 6.0 - 8.0 g/dL [facility] Sodium [Moles/Vol] 139 mmol/L 134 - 146 mmol/L [facility] Urea nitrogen [Mass/Vol] 20 mg/dL 5 - 23 mg/dL [facility] Glucose Glucometer (BldC) [M ass/Vol]on 11-13-2023 Glucose [Mass/Vol] 203 mg/dL High 65 - 99 mg/dL [facility] Interpretation and review of laboratory results Abnormal [facility] Glucose [Mass/Vol] 203 mg/dL High 65-99 [facility] Glucose [Mass/Vol] 137 mg/dL High 65 - 99 mg/dL [facility] Interpretation and review of laboratory results Abnormal [facility] Glucose [Mass/Vol] 137 mg/dL High 65-99 [facility] Glucose [Mass/Vol] 121 mg/dL High 65 - 99 mg/dL [facility] Interpretation and review of laboratory results Abnormal [facility] Glucose [Mass/Vol] 121 mg/dL High 65-99 [facility] Glucose [Mass/Vol] 139 mg/dL High 65 - 99 mg/dL [facility] Interpretation and review of laboratory results Abnormal [facility] Glucose [Mass/Vol] 139 mg/dL High 65-99 [facility] MAGNESIUMon 11-13-2023 Magnesium [Mass/Vol] 2.0 mg/dL Normal 1.8-2.6 [facility] Comment on above: Performed By: #### C ALONDRA ESCOBAR, 50758-1, 12603-8 ####[facility] ([id number])[address] [place] [address] Magnesiumon 11-13-2023 Magnesium [Mass/Vol] 2.0 mg/dL 1.8 - 2.6 mg/dL [facility] No Panel Informationon 11-13 [facility] Procalcitoninon 11-13-2023 Procalcitonin IA [Mass/Vol] ng/mL NINF - 0.05 ng/mL [facility] Comment on above: NOTE <0.50 ng/mL - Low risk of severe sepsis and/or septic shock. <2.00 ng/mL - Recommend retesting within 6-24 hours. >2.00 ng/mL - High risk of sepsis and/or septic shock. Procalcitonin IA [Mass/Vol]o n 11-13-2023 [facility] PROCALCITONIN <0.05 Normal <0.05 [facility] Comment on above: Result Comment: NOTE <0.50 ng/mL - Low risk of severe sepsis and/or septic shock.<2.00 ng/mL - Recommend retesting within 6-24 hours.>2.00 ng/mL - High risk of sepsis and/or septic shock. Performed By: #### C ALONDRA ESCOBAR, 05155-8, 95208-4 ####[facility] ([id number])[address] [place] [address] 54759 CBC AND AUTO DIFFon 11-12-19 24 ABSOLUTE BASOPHIL 0.0 X10E9/L Normal 0.0-0.2 [facility] Comment on above: Performed By: #### C ALONDRA ESCOBAR, 55647-6 ####[facility] ([id number])[address] [place] [address] [place] [address] ABSOLUTE NEUTROPHIL 12.6 X10E9/L High 1.5-6.6 [facility] Comment on above: Performed By: #### Darian ESCOBAR CMP, 14478-4 ####[facility] ([id number])[address] [place] [address] 24279 Basophils/100 WBC (Bld) 0.2 % Normal [facility] Comment on above: Performed By: #### Darian ESCOBAR CMP, ####[facility] ([id number])[address] [place] [address] 47301 Eosinophils (Bld) [#/Vol] 0.0 10*3/uL Normal 0.0-0.4 [facility] Comment on above: Performed By: #### Darian ESCOBAR [facility], ####[facility] ([id number])[address] [place] [address] 39152 Eosinophils/100 WBC (Bld) 0.0 % Normal [facility] Comment on above: Performed By: #### Darian ESCOBAR [facility], ####[facility] ([id number])[address] [place] [address] 80596 Erythrocyte distribution width (RBC) [Ratio] 15.6 % High 11.5-15.0 [facility] Comment on above: Performed By: #### Darian ESCOBAR [facility], ####[facility] ([id number])[address] [place] [address] 87587 Hematocrit (Bld) [Volume fraction] 46.0 % Normal 35-47 [facility] Comment on above: Performed By: #### Darian ESCOBAR CMP, ####[facility] ([id number])[address] [place] [address] 52934 Hemoglobin (Bld) [Mass/Vol] 14.7 g/dL Normal 11.7-15.5 [facility] Comment on above: Performed By: #### C ALONDRA ESCOBAR, ####[facility] ([id number])[address] [place] [address] 99293 Lymphocytes (Bld) [#/Vol] 1.0 10*3/uL Normal 1.0-3.5 [facility] Comment on above: Performed By: #### Darian ESCOBAR [facility], ####[facility] ([id number])[address] [place] [address] 20342 Lymphocytes/100 WBC (Bld) 6.8 % Normal [facility] Comment on above: Performed By: #### Darian ESCOBAR CMP, ####[facility] ([id number])[address] [place] [address] 69270 MCH (RBC) [Entitic mass] 28.8 pg Normal 27-34 [facility] Comment on above: Performed By: #### Darian ESCOBAR [facility], ####[facility] ([id number])[address] [place] [address] 44855 MCHC (RBC) [Mass/Vol] 32.0 g/dL Normal 32-36 [facility] Comment on above: Performed By: #### Darian ESCOBAR CMP, ####[facility] ([id number])[address] [place] [address] 45656 MCV (RBC) [Entitic vol] 90 fL Normal 80-100 [facility] Comment on above: Performed By: #### Darian ESCOBAR CMP, ####[facility] ([id number])[address] [place] [address] 30151 Monocytes (Bld) [#/Vol] 0.9 10*3/uL Normal 0-0.9 [facility] Comment on above: Performed By: #### C SHAWN CMP, ####[facility] ([id number])[address] [place] [address] 06999 Monocytes/100 WBC (Bld) 6.2 % Normal [facility] Comment on above: Performed By: #### Darian ESCOBAR, CMP, ####[facility] ([id number])[address] [place] [address] 90132 Neutrophils/100 WBC (Bld) 86.8 % Normal [facility] Comment on above: Performed By: #### Darian ESCOBAR CMP, ####[facility] ([id number])[address] [place] [address] 76988 Platelet mean volume (Bld) [Entitic vol] 9.2 fL Normal 7-12 [facility] Comment on above: Performed By: #### Darian ESCOBAR CMP, ####[facility] ([id number])[address] [place] [address] 64572 Platelets (Bld) [#/Vol] 204 10*3/uL Normal 150-450 [facility] Comment on above: Performed By: #### Darian ESCOBAR, CMP, ####[facility] ([id number])[address] [place] [address] 00470 RBC COUNT 5.10 X10E12/L Normal 3.80-5.20 [facility] Comment on above: Performed By: #### Darian ESCOBAR, CMP, ####[facility] ([id number])[address] [place] [address] 44230 WBC (Bld) [#/Vol] 14.6 10*3/uL High 4.0-11.0 [facility] Comment on above: Performed By: #### Darian ESCOBAR, CMP, ####[facility] ([id number])[address] [place] [address] CBC auto differentialon 10-28 Basophils (Bld) [#/Vol] 0.0 10*3/uL [facility] Basophils/100 WBC (Bld) 0.2 % [facility] Eosinophils (Bld) [#/Vol] 0.0 10*3/uL [facility] Eosinophils/100 WBC (Bld) 0.0 % [facility] Erythrocyte distribution width (RBC) [Ratio] 15.6 % High 11.5 - 15.0 % [facility] Hematocrit (Bld) [Volume fraction] 46.0 % 35 - 47 % [facility] Hemoglobin (Bld) [Mass/Vol] 14.7 g/dL 11.7 - 15.5 g/dL [facility] Interpretation and review of laboratory results Abnormal [facility] Lymphocytes (Bld) [#/Vol] 1.0 10*3/uL [facility] Lymphocytes/100 WBC (Bld) 6.8 % [facility] MCH (RBC) [Entitic mass] 28.8 pg 27 - 34 pg [facility] MCHC (RBC) [Mass/Vol] 32.0 g/dL 32 - 36 g/dL [facility] MCV (RBC) [Entitic vol] 90 fL 80 - 100 fL [facility] Monocytes (Bld) [#/Vol] 0.9 10*3/uL [facility] Monocytes/100 WBC (Bld) 6.2 % [facility] Neutrophils (Bld) [#/Vol] 12.6 10*3/uL High [facility] Neutrophils/100 WBC (Bld) 86.8 % [facility] Platelet mean volume (Bld) [Entitic vol] 9.2 fL 7 - 12 fL [facility] Platelets (Bld) [#/Vol] 204 10*3/uL [facility] RBC (Bld) [#/Vol] 5.10 10*6/uL [facility] WBC corrected for nucl RBC Auto (Bld) [#/Vol] 14.6 High [facility] COMPREHENSIVE METABOLIC PANE Charles 11-12-2023 Albumin [Mass/Vol] 3.2 g/dL Normal 3.2-5.3 [facility] Comment on above: Performed By: #### C SHAWN, CMP, 76077-4 ####[facility] ([id number])[address] [place] [address] [place] [address] ALP [Catalytic activity/Vol] 65 U/L Normal 39-130 [facility] Comment on above: Performed By: #### C BCA, CMP, ####[facility] ([id number])[address] [place] [address] 20493 ALT [Catalytic activity/Vol] 21 U/L Normal 0-31 [facility] Comment on above: Performed By: #### C BCA, CMP, ####[facility] ([id number])[address] [place] [address] [place] [address] Anion gap [Moles/Vol] 11 mmol/L Normal 5-15 [facility] Comment on above: Performed By: #### C SHAWN, CMP, ####[facility] ([id number])[address] [place] [address] [place] [address] AST [Catalytic activity/Vol] 23 U/L Normal 0-41 [facility] Comment on above: Performed By: #### C BCA, CMP, ####[facility] ([id number])[address] [place] [address] [place] [address] Bilirubin [Mass/Vol] 0.9 mg/dL Normal 0.3-1.2 [facility] Comment on above: Performed By: #### C BCA, CMP, ####[facility] ([id number])[address] [place] [address] [place] [address] Calcium [Mass/Vol] 8.9 mg/dL Normal 8.5-10.5 [facility] Comment on above: Performed By: #### C SHAWN [facility], ####[facility] ([id number])[address] [place] [address] 66514 Chloride [Moles/Vol] 93 mmol/L Low 98-109 [facility] Comment on above: Performed By: #### C SHAWN [facility], ####[facility] ([id number])[address] [place] [address] 50146 CO2 [Moles/Vol] 33 mmol/L High 22-32 [facility] Comment on above: Performed By: #### C SHAWN [facility], ####[facility] ([id number])[address] [place] [address] 76431 Creatinine [Mass/Vol] 0.61 mg/dL Normal 0.40-1.00 [facility] Comment on above: Result Comment: METH OD TRACEABLE TO IDMS STANDARD Performed By: #### C SHAWN [facility], ####[facility] ([id number])[address] [place] [address] 01548 eGFR (CKD-EPI) NON-RACE DEPENDENT >90 Normal >59 [facility] Comment on above: Result Comment: Repo rted eGFR is based on theCKD-EPI 2020 equation that doesnot use a race coefficient. Performed By: #### C SHAWN [facility], ####[facility] ([id number])[address] [place] [address] 25025 Glucose [Mass/Vol] 193 mg/dL High 65-99 [facility] Comment on above: Performed By: #### C SHAWN [facility], ####[facility] ([id number])[address] [place] [address] 94199 Potassium [Moles/Vol] 4.0 mmol/L Normal 3.5-5.0 [facility] Comment on above: Performed By: #### C SHAWN [facility], 29868-6 ####[facility] ([id number])[address] [place] [address] 31079 Protein [Mass/Vol] 7.2 g/dL Normal 6.0-8.0 [facility] Comment on above: Performed By: #### C SHAWN CMP, 48098-3 ####[facility] ([id number])[address] [place] [address] 05558 Sodium [Moles/Vol] 137 mmol/L Normal 134-146 [facility] Comment on above: Performed By: #### C SHAWN [facility], 72503-1 ####[facility] ([id number])[address] [place] [address] 59321 Urea nitrogen [Mass/Vol] 19 mg/dL Normal 5-23 [facility] Comment on above: Performed By: #### Darian ESCOBAR [facility], 73242-6 ####[facility] ([id number])[address] [place] [id number] Comprehensive metabolic pane charles 11-12-2023 Albumin [Mass/Vol] 3.2 g/dL 3.2 - 5.3 g/dL [facility] ALP [Catalytic activity/Vol] 65 U/L 39 - 130 U/L [facility] ALT No additional P-5'-P [Catalytic activity/Vol] 21 U/L 0 - 31 U/L [facility] Anion gap [Moles/Vol] 11 mmol/L 5 - 15 mmol/L [facility] AST [Catalytic activity/Vol] 23 U/L 0 - 41 U/L [facility] Bilirubin [Mass/Vol] 0.9 mg/dL 0.3 - 1.2 mg/dL [facility] Calcium [Mass/Vol] 8.9 mg/dL 8.5 - 10. 5 mg/dL [facility] Chloride [Moles/Vol] 93 mmol/L Low 98 - 109 mmol/L [facility] CO2 [Moles/Vol] 33 mmol/L High 22 - 32 mmol/L [facility] Creatinine [Mass/Vol] 0.61 mg/dL 0.40 - 1.00 mg/dL [facility] Comment on above: METHOD TRACEABLE TO [facility] STANDARD eGFR (CKD-EPI)non-race dependent - PINF [facility] Comment on above: Reported eGFR is based on the CKD-EPI 2020 equation that does not use a race coefficient. Glucose [Mass/Vol] 193 mg/dL High 65 - 99 mg/dL [facility] Interpretation and review of laboratory results Abnormal [facility] Potassium [Moles/Vol] 4.0 mmol/L 3.5 - 5.0 mmol/L [facility] Protein [Mass/Vol] 7.2 g/dL 6.0 - 8.0 g/dL [facility] Sodium [Moles/Vol] 137 mmol/L 134 - 146 mmol/L [facility] Urea nitrogen [Mass/Vol] 19 mg/dL 5 - 23 mg/dL [facility] Glucose Glucometer (BldC) [M ass/Vol]on 11-12-2023 Glucose [Mass/Vol] 222 mg/dL High 65 - 99 mg/dL [facility] Interpretation and review of laboratory results Abnormal [facility] Glucose [Mass/Vol] 222 mg/dL High 65-99 [facility] Glucose [Mass/Vol] 137 mg/dL High 65 - 99 mg/dL [facility] Interpretation and review of laboratory results Abnormal [facility] Glucose [Mass/Vol] 137 mg/dL High 65-99 [facility] Glucose [Mass/Vol] 193 mg/dL High 65 - 99 mg/dL [facility] Interpretation and review of laboratory results Abnormal [facility] Glucose [Mass/Vol] 193 mg/dL High 65-99 [facility] Glucose [Mass/Vol] 158 mg/dL High 65 - 99 mg/dL [facility] Interpretation and review of laboratory results Abnormal [facility] Glucose [Mass/Vol] 158 mg/dL High 65-99 [facility] LOWER RESPIRATORY CULTUREon 11-12-2023 Bacteria identified Respiratory culture Nom (Sput) GRAM STAIN 10 to 24 WHITE BLOOD CELLS/LPF 0 SQUAMOUS EPITHELIAL CELLS/LPF 0 CILIATED EPITHELIAL CELLS/LPF RARE GRAM POSITIVE COCCI IN PAIRS, CHAINS AND CLUSTERS CULTURE RESULTS NORMAL ORAL TK Normal [facility] Comment on above: Performed By: #### 6 24-7 ####[facility] ([id number])[address] [place] [address], [address], [place] [address] MAGNESIUMon 11-12-2023 Magnesium [Mass/Vol] 1.9 mg/dL Normal 1.8-2.6 [facility] Comment on above: Performed By: #### Darian ESCOBAR CMP, 80827-9 ####[facility] ([id number])[address] [place] [address] 19891 Magnesiumon 11-12-2023 Magnesium [Mass/Vol] 1.9 mg/dL 1.8 - 2.6 mg/dL [facility] No Panel Informationon 11-12 [facility] CBC AND AUTO DIFFon 11-11-19 24 ABSOLUTE BASOPHIL 0.0 X10E9/L Normal 0.0-0.2 [facility] Comment on above: Performed By: #### Darian ESCOBAR CMP, ####[facility] ([id number])[address] [place] [address] 93026 ABSOLUTE NEUTROPHIL 13.8 X10E9/L High 1.5-6.6 [facility] Comment on above: Performed By: #### Darian ESCOBAR CMP, 64242-0 ####[facility] ([id number])[address] [place] [address] 29124 Basophils/100 WBC (Bld) 0.2 % Normal [facility] Comment on above: Performed By: #### Darian ESCOBAR CMP, 54564-6 ####[facility] ([id number])[address] [place] [address] 20880 Eosinophils (Bld) [#/Vol] 0.0 10*3/uL Normal 0.0-0.4 [facility] Comment on above: Performed By: #### C ALONDRA ESCOBAR, ####[facility] ([id number])[address] [place] [address] 15769 Eosinophils/100 WBC (Bld) 0.0 % Normal [facility] Comment on above: Performed By: #### Darian ESCOBAR [facility], ####[facility] ([id number])[address] [place] [address] 41544 Erythrocyte distribution width (RBC) [Ratio] 16.0 % High 11.5-15.0 [facility] Comment on above: Performed By: #### Darian ESCOBAR CMP, ####[facility] ([id number])[address] [place] [address] 74660 Hematocrit (Bld) [Volume fraction] 47.7 % High 35-47 [facility] Comment on above: Performed By: #### Darian ESCOBAR [facility], ####[facility] ([id number])[address] [place] [address] 65378 Hemoglobin (Bld) [Mass/Vol] 15.1 g/dL Normal 11.7-15.5 [facility] Comment on above: Performed By: #### Darian ESCOBAR CMP, ####[facility] ([id number])[address] [place] [address] 58953 Lymphocytes (Bld) [#/Vol] 1.0 10*3/uL Normal 1.0-3.5 [facility] Comment on above: Performed By: #### Darian ESCOBAR CMP, ####[facility] ([id number])[address] [place] [address] 91627 Lymphocytes/100 WBC (Bld) 6.6 % Normal [facility] Comment on above: Performed By: #### Darian ESCOBAR CMP, ####[facility] ([id number])[address] [place] [address] 35324 MCH (RBC) [Entitic mass] 28.6 pg Normal 27-34 [facility] Comment on above: Performed By: #### C SHAWN, CMP, ####[facility] ([id number])[address] [place] [address] 92846 MCHC (RBC) [Mass/Vol] 31.6 g/dL Low 32-36 [facility] Comment on above: Performed By: #### Darian ESCOBAR, CMP, ####[facility] ([id number])[address] [place] [address] 09006 MCV (RBC) [Entitic vol] 91 fL Normal 80-100 [facility] Comment on above: Performed By: #### Darian ESCOBAR, CMP, ####[facility] ([id number])[address] [place] [address] 25945 Monocytes (Bld) [#/Vol] 0.8 10*3/uL Normal 0-0.9 [facility] Comment on above: Performed By: #### C SHAWN, CMP, ####[facility] ([id number])[address] [place] [address] 43916 Monocytes/100 WBC (Bld) 5.1 % Normal [facility] Comment on above: Performed By: #### C SHAWN, CMP, ####[facility] ([id number])[address] [place] [address] 35647 Neutrophils/100 WBC (Bld) 88.1 % Normal [facility] Comment on above: Performed By: #### Darian ESCOBAR, CMP, ####[facility] ([id number])[address] [place] [address] 83742 Platelet mean volume (Bld) [Entitic vol] 8.8 fL Normal 7-12 [facility] Comment on above: Performed By: #### Darian ESCOBAR CMP, 45819-9 ####[facility] ([id number])[address] [place] [address] 48416 Platelets (Bld) [#/Vol] 193 10*3/uL Normal 150-450 [facility] Comment on above: Performed By: #### Darian ESCOABR CMP, 37401-7 ####[facility] ([id number])[address] [place] [address] 15705 RBC COUNT 5.27 X10E12/L High 3.80-5.20 [facility] Comment on above: Performed By: #### Darian ESCOBAR CMP, 60149-7 ####[facility] ([id number])[address] [place] [address] 70450 WBC (Bld) [#/Vol] 15.7 10*3/uL High 4.0-11.0 [facility] Comment on above: Performed By: #### Darian ESCOBAR CMP, 78611-3 ####[facility] ([id number])[address] [place] [address] 43202 CBC auto differentialon 10-28 Basophils (Bld) [#/Vol] 0.0 10*3/uL [facility] Basophils/100 WBC (Bld) 0.2 % [facility] Eosinophils (Bld) [#/Vol] 0.0 10*3/uL [facility] Eosinophils/100 WBC (Bld) 0.0 % [facility] Erythrocyte distribution width (RBC) [Ratio] 16.0 % High 11.5 - 15.0 % [facility] Hematocrit (Bld) [Volume fraction] 47.7 % High 35 - 47 % [facility] Hemoglobin (Bld) [Mass/Vol] 15.1 g/dL 11.7 - 15.5 g/dL [facility] Interpretation and review of laboratory results Abnormal [facility] Lymphocytes (Bld) [#/Vol] 1.0 10*3/uL [facility] Lymphocytes/100 WBC (Bld) 6.6 % [facility] MCH (RBC) [Entitic mass] 28.6 pg 27 - 34 pg [facility] MCHC (RBC) [Mass/Vol] 31.6 g/dL Low 32 - 36 g/dL [facility] MCV (RBC) [Entitic vol] 91 fL 80 - 100 fL [facility] Monocytes (Bld) [#/Vol] 0.8 10*3/uL [facility] Monocytes/100 WBC (Bld) 5.1 % [facility] Neutrophils (Bld) [#/Vol] 13.8 10*3/uL High [facility] Neutrophils/100 WBC (Bld) 88.1 % [facility] Platelet mean volume (Bld) [Entitic vol] 8.8 fL 7 - 12 fL [facility] Platelets (Bld) [#/Vol] 193 10*3/uL [facility] RBC (Bld) [#/Vol] 5.27 10*6/uL High [facility] WBC corrected for nucl RBC Auto (Bld) [#/Vol] 15.7 High [facility] COMPREHENSIVE METABOLIC PANE Charles 11-11-2023 Albumin [Mass/Vol] 3.3 g/dL Normal 3.2-5.3 [facility] Comment on above: Performed By: #### C SHAWN CMP, 50392-0 ####[facility] ([id number])[address] [place] [address] 93004 ALP [Catalytic activity/Vol] 61 U/L Normal 39-130 [facility] Comment on above: Performed By: #### C BCA, CMP, 75887-4 ####[facility] ([id number])[address] [place] [address] 31249 ALT [Catalytic activity/Vol] 21 U/L Normal 0-31 [facility] Comment on above: Performed By: #### C BCA, CMP, ####[facility] ([id number])[address] [place] [address] [place] [address] Anion gap [Moles/Vol] 11 mmol/L Normal 5-15 [facility] Comment on above: Performed By: #### C BCA, CMP, ####[facility] ([id number])[address] [place] [address] [place] [address] AST [Catalytic activity/Vol] 26 U/L Normal 0-41 [facility] Comment on above: Performed By: #### C BCA, CMP, ####[facility] ([id number])[address] [place] [address] 17600 Bilirubin [Mass/Vol] 0.7 mg/dL Normal 0.3-1.2 [facility] Comment on above: Performed By: #### C BCA, CMP, ####[facility] ([id number])[address] [place] [address] 40657 Calcium [Mass/Vol] 9.0 mg/dL Normal 8.5-10.5 [facility] Comment on above: Performed By: #### C BCA, CMP, ####[facility] ([id number])[address] [place] [address] [place] [address] Chloride [Moles/Vol] 95 mmol/L Low 98-109 [facility] Comment on above: Performed By: #### C BCA, CMP, ####[facility] ([id number])[address] [place] [address] 88786 CO2 [Moles/Vol] 33 mmol/L High 22-32 [facility] Comment on above: Performed By: #### C BCA, CMP, ####[facility] ([id number])[address] [place] [address] [place] [address] Creatinine [Mass/Vol] 0.62 mg/dL Normal 0.40-1.00 [facility] Comment on above: Result Comment: METH OD TRACEABLE TO IDMS STANDARD Performed By: #### C ALONDRA ESCOBAR, ####[facility] ([id number])[address] [place] [address] 33512 eGFR (CKD-EPI) NON-RACE DEPENDENT >90 Normal >59 [facility] Comment on above: Result Comment: Repo rted eGFR is based on theCKD-EPI 2020 equation that doesnot use a race coefficient. Performed By: #### C ALONDRA ESCOBAR, ####[facility] ([id number])[address] [place] [address] 34011 Glucose [Mass/Vol] 175 mg/dL High 65-99 [facility] Comment on above: Performed By: #### C ALONDRA ESCOBAR, ####[facility] ([id number])[address] [place] [address] 70019 Potassium [Moles/Vol] 4.3 mmol/L Normal 3.5-5.0 [facility] Comment on above: Performed By: #### C ALONDRA ESCOBAR, ####[facility] ([id number])[address] [place] [address] 43763 Protein [Mass/Vol] 7.5 g/dL Normal 6.0-8.0 [facility] Comment on above: Performed By: #### C ALONDRA ESCOBAR, ####[facility] ([id number])[address] [place] [address] 13538 Sodium [Moles/Vol] 139 mmol/L Normal 134-146 [facility] Comment on above: Performed By: #### C ALONDRA ESCOBAR, ####[facility] ([id number])[address] [place] [address] Urea nitrogen [Mass/Vol] 19 mg/dL Normal 5-23 [facility] Comment on above: Performed By: #### C BCA, [facility], 28994-7 ####[facility] ([id number])[address] [place] [address] Comprehensive metabolic pane charles 11-11-2023 Albumin [Mass/Vol] 3.3 g/dL 3.2 - 5.3 g/dL [facility] ALP [Catalytic activity/Vol] 61 U/L 39 - 130 U/L [facility] ALT No additional P-5'-P [Catalytic activity/Vol] 21 U/L 0 - 31 U/L [facility] Anion gap [Moles/Vol] 11 mmol/L 5 - 15 mmol/L [facility] AST [Catalytic activity/Vol] 26 U/L 0 - 41 U/L [facility] Bilirubin [Mass/Vol] 0.7 mg/dL 0.3 - 1.2 mg/dL [facility] Calcium [Mass/Vol] 9.0 mg/dL 8.5 - 10. 5 mg/dL [facility] Chloride [Moles/Vol] 95 mmol/L Low 98 - 109 mmol/L [facility] CO2 [Moles/Vol] 33 mmol/L High 22 - 32 mmol/L [facility] Creatinine [Mass/Vol] 0.62 mg/dL 0.40 - 1.00 mg/dL [facility] Comment on above: METHOD TRACEABLE TO IDMS STANDARD eGFR (CKD-EPI)non-race dependent - PINF [facility] Comment on above: Reported eGFR is based on the CKD-EPI 202 equation that does not use a race coefficient. Glucose [Mass/Vol] 175 mg/dL High 65 - 99 mg/dL [facility] Interpretation and review of laboratory results Abnormal [facility] Potassium [Moles/Vol] 4.3 mmol/L 3.5 - 5.0 mmol/L [facility] Protein [Mass/Vol] 7.5 g/dL 6.0 - 8.0 g/dL [facility] Sodium [Moles/Vol] 139 mmol/L 134 - 146 mmol/L [facility] Urea nitrogen [Mass/Vol] 19 mg/dL 5 - 23 mg/dL [facility] Glucose Glucometer (BldC) [M ass/Vol]on 11-11-2023 Glucose [Mass/Vol] 190 mg/dL High 65 - 99 mg/dL [facility] Interpretation and review of laboratory results Abnormal [facility] Glucose [Mass/Vol] 190 mg/dL High 65-99 [facility] Glucose [Mass/Vol] 191 mg/dL High 65 - 99 mg/dL [facility] Interpretation and review of laboratory results Abnormal [facility] Glucose [Mass/Vol] 130 mg/dL High 65 - 99 mg/dL [facility] Interpretation and review of laboratory results Abnormal [facility] Glucose [Mass/Vol] 191 mg/dL High 65-99 [facility] Glucose [Mass/Vol] 130 mg/dL High 65-99 [facility] Glucose [Mass/Vol] 127 mg/dL High 65 - 99 mg/dL [facility] Interpretation and review of laboratory results Abnormal [facility] Glucose [Mass/Vol] 127 mg/dL High 65-99 [facility] MAGNESIUMon 11-11-2023 Magnesium [Mass/Vol] 2.1 mg/dL Normal 1.8-2.6 [facility] Comment on above: Performed By: #### C [facility], [facility], 65156-8 ####[facility] ([id number])[address] [place] [address] Magnesiumon 11-11-2023 Magnesium [Mass/Vol] 2.1 mg/dL 1.8 - 2.6 mg/dL [facility] No Panel Informationon 11-11 [facility] XR CHEST 2 VWSon 11-11-2023 XR CHEST 2 VWS Normal [facility] XR Chest PA and Lateralon Christine Sweeney, DO - 11/11/2023 Procedure: Chest x-ray performed Number of views:PA and lateral History:Hypoxia influenza Comparison:11/08/2023 Findings: The heart and mediastinal silhouette are stable there are multifocal bilateral airspace opacities. No pleural effusions are seen. There is no pneumothorax Impression: Multifocal bilateral airspace opacities consistent with pneumonia Finalized by Christine Sweeney DO on 11/11/2023 6:31 PM [facility] Radiology Study observation (narrative) [facility] CBC AND AUTO DIFFon 11-10-19 24 ABSOLUTE BASOPHIL 0.1 X10E9/L Normal 0.0-0.2 [facility] Comment on above: Performed By: #### C MELISA, , CBCA ####[facility] ([id number])[address] [place] [address] 86863 ABSOLUTE NEUTROPHIL 15.7 X10E9/L High 1.5-6.6 [facility] Comment on above: Performed By: #### Darian VINCENT, , CBCA ####[facility] ([id number])[address] [place] [address] 12137 Basophils/100 WBC (Bld) 0.3 % Normal [facility] Comment on above: Performed By: #### C MELISA, , CBCA ####[facility] ([id number])[address] [place] [address] 42225 Eosinophils (Bld) [#/Vol] 0.0 10*3/uL Normal 0.0-0.4 [facility] Comment on above: Performed By: #### C MELISA, , CBCA ####[facility] ([id number])[address] [place] [address] 76352 Eosinophils/100 WBC (Bld) 0.0 % Normal [facility] Comment on above: Performed By: #### Darian VINCENT, , CBCA ####[facility] ([id number])[address] [place] [address] 64409 Erythrocyte distribution width (RBC) [Ratio] 15.8 % High 11.5-15.0 [facility] Comment on above: Performed By: #### C MELISA, , CBCA ####[facility] ([id number])[address] [place] [address] 13795 Hematocrit (Bld) [Volume fraction] 48.2 % High 35-47 [facility] Comment on above: Performed By: #### C MELISA, , CBCA ####[facility] ([id number])[address] [place] [address] 54438 Hemoglobin (Bld) [Mass/Vol] 15.4 g/dL Normal 11.7-15.5 [facility] Comment on above: Performed By: #### C MELISA, , CBCA ####[facility] ([id number])[address] [place] [address] 27225 Lymphocytes (Bld) [#/Vol] 0.8 10*3/uL Low 1.0-3.5 [facility] Comment on above: Performed By: #### C MELISA, , CBCA ####[facility] ([id number])[address] [place] [address] 27047 Lymphocytes/100 WBC (Bld) 4.9 % Normal [facility] Comment on above: Performed By: #### C MELISA, , CBCA ####[facility] ([id number])[address] [place] [address] 75631 MCH (RBC) [Entitic mass] 29.0 pg Normal 27-34 [facility] Comment on above: Performed By: #### C MELISA, , CBCA ####[facility] ([id number])[address] [place] [address] 40021 MCHC (RBC) [Mass/Vol] 32.0 g/dL Normal 32-36 [facility] Comment on above: Performed By: #### C MELISA, , CBCA ####[facility] ([id number])[address] [place] [address] 58671 MCV (RBC) [Entitic vol] 91 fL Normal 80-100 [facility] Comment on above: Performed By: #### C MELISA, , CBCA ####[facility] ([id number])[address] [place] [address] 02509 Monocytes (Bld) [#/Vol] 0.7 10*3/uL Normal 0-0.9 [facility] Comment on above: Performed By: #### C MELISA, , CBCA ####[facility] ([id number])[address] [place] [address] 81068 Monocytes/100 WBC (Bld) 4.2 % Normal [facility] Comment on above: Performed By: #### Darian VINCENT, , CBCA ####[facility] ([id number])[address] [place] [address] 18146 Neutrophils/100 WBC (Bld) 90.6 % Normal [facility] Comment on above: Performed By: #### Darian VINCENT, , CBCA ####[facility] ([id number])[address] [place] [address] 16384 Platelet mean volume (Bld) [Entitic vol] 9.1 fL Normal 7-12 [facility] Comment on above: Performed By: #### Darian VINCENT, , CBCA ####[facility] ([id number])[address] [place] [address] 99590 Platelets (Bld) [#/Vol] 192 10*3/uL Normal 150-450 [facility] Comment on above: Performed By: #### C MELISA, , CBCA ####[facility] ([id number])[address] [place] [address] 70139 RBC COUNT 5.31 X10E12/L High 3.80-5.20 [facility] Comment on above: Performed By: #### C MELISA, , CBCA ####[facility] ([id number])[address] [place] [address] 62551 WBC (Bld) [#/Vol] 17.3 10*3/uL High 4.0-11.0 [facility] Comment on above: Performed By: #### C MELISA, , CBCA ####[facility] ([id number])[address] [place] [address] 17603 CBC auto differentialon 10-28 Basophils (Bld) [#/Vol] 0.1 10*3/uL [facility] Basophils/100 WBC (Bld) 0.3 % [facility] Eosinophils (Bld) [#/Vol] 0.0 10*3/uL [facility] Eosinophils/100 WBC (Bld) 0.0 % [facility] Erythrocyte distribution width (RBC) [Ratio] 15.8 % High 11.5 - 15.0 % [facility] Hematocrit (Bld) [Volume fraction] 48.2 % High 35 - 47 % [facility] Hemoglobin (Bld) [Mass/Vol] 15.4 g/dL 11.7 - 15.5 g/dL [facility] Interpretation and review of laboratory results Abnormal [facility] Lymphocytes (Bld) [#/Vol] 0.8 10*3/uL Low [facility] Lymphocytes/100 WBC (Bld) 4.9 % [facility] MCH (RBC) [Entitic mass] 29.0 pg 27 - 34 pg [facility] MCHC (RBC) [Mass/Vol] 32.0 g/dL 32 - 36 g/dL [facility] MCV (RBC) [Entitic vol] 91 fL 80 - 100 fL [facility] Monocytes (Bld) [#/Vol] 0.7 10*3/uL [facility] Monocytes/100 WBC (Bld) 4.2 % [facility] Neutrophils (Bld) [#/Vol] 15.7 10*3/uL High [facility] Neutrophils/100 WBC (Bld) 90.6 % [facility] Platelet mean volume (Bld) [Entitic vol] 9.1 fL 7 - 12 fL [facility] Platelets (Bld) [#/Vol] 192 10*3/uL [facility] RBC (Bld) [#/Vol] 5.31 10*6/uL High [facility] WBC corrected for nucl RBC Auto (Bld) [#/Vol] 17.3 High [facility] COMPREHENSIVE METABOLIC PANE Charles 11-10-2023 Albumin [Mass/Vol] 3.4 g/dL Normal 3.2-5.3 [facility] Comment on above: Performed By: #### C MELISA, , CBCA ####[facility] ([id number])[address] [place] [address] 46236 ALP [Catalytic activity/Vol] 59 U/L Normal 39-130 [facility] Comment on above: Performed By: #### C MELISA, , CBCA ####[facility] ([id number])[address] [place] [address] 42118 ALT [Catalytic activity/Vol] 20 U/L Normal 0-31 [facility] Comment on above: Performed By: #### C MELISA, , CBCA ####[facility] ([id number])[address] [place] [address] 61195 Anion gap [Moles/Vol] 10 mmol/L Normal 5-15 [facility] Comment on above: Performed By: #### C MELISA, , CBCA ####[facility] ([id number])[address] [place] [address], [place] [address] AST [Catalytic activity/Vol] 28 U/L Normal 0-41 [facility] Comment on above: Performed By: #### C MELISA, , CBCA ####[facility] ([id number])[address] [place] [address] [place] [address] Bilirubin [Mass/Vol] 0.7 mg/dL Normal 0.3-1.2 [facility] Comment on above: Performed By: #### C MELISA, , CBCA ####[facility] ([id number])[address] [place] [address] 67695 Calcium [Mass/Vol] 8.9 mg/dL Normal 8.5-10.5 [facility] Comment on above: Performed By: #### Darian VINCENT, , CBCA ####[facility] ([id number])[address] [place] [address] [place] [address] Chloride [Moles/Vol] 99 mmol/L Normal 98-109 [facility] Comment on above: Performed By: #### Darian VINCENT, , CBCA ####[facility] ([id number])[address] [place] [address] [place] [address] CO2 [Moles/Vol] 30 mmol/L Normal 22-32 [facility] Comment on above: Performed By: #### Darian VINCENT, , CBCA ####[facility] ([id number])[address] [place] [address] [place] [address] Creatinine [Mass/Vol] 0.57 mg/dL Normal 0.40-1.00 [facility] Comment on above: Result Comment: METH OD TRACEABLE TO IDMS STANDARD Performed By: #### C MELISA, , CBCA ####[facility] ([id number])[address] [place] [address] [place] [address] eGFR (CKD-EPI) NON-RACE DEPENDENT >90 Normal >59 [facility] Comment on above: Result Comment: Repo rted eGFR is based on theCKD-EPI 2020 equation that doesnot use a race coefficient. Performed By: #### C MELISA, , CBCA ####[facility] ([id number])[address] [place] [address] 11451 Glucose [Mass/Vol] 147 mg/dL High 65-99 [facility] Comment on above: Performed By: #### C MELISA, , CBCA ####[facility] ([id number])[address] [place] [address] 63602 Potassium [Moles/Vol] 4.7 mmol/L Normal 3.5-5.0 [facility] Comment on above: Performed By: #### Darian VINCENT, , CBCA ####[facility] ([id number])[address] [place] [address] [id number] Protein [Mass/Vol] 7.3 g/dL Normal 6.0-8.0 [facility] Comment on above: Performed By: #### C MELISA, , CBCA ####[facility] ([id number])[address] [place] [address] [id number] Sodium [Moles/Vol] 139 mmol/L Normal 134-146 [facility] Comment on above: Performed By: #### Darian VINCENT, , CBCA ####[facility] ([id number])[address] [place] [address] 38074 Urea nitrogen [Mass/Vol] 16 mg/dL Normal 5-23 [facility] Comment on above: Performed By: #### C MELISA, , CBCA ####[facility] ([id number])[address] [place] [address] [place] [address] Comprehensive metabolic pane [facility] 11-10-2023 Albumin [Mass/Vol] 3.4 g/dL 3.2 - 5.3 g/dL [facility] ALP [Catalytic activity/Vol] 59 U/L 39 - 130 U/L [facility] ALT No additional P-5'-P [Catalytic activity/Vol] 20 U/L 0 - 31 U/L [facility] Anion gap [Moles/Vol] 10 mmol/L 5 - 15 mmol/L [facility] AST [Catalytic activity/Vol] 28 U/L 0 - 41 U/L [facility] Bilirubin [Mass/Vol] 0.7 mg/dL 0.3 - 1.2 mg/dL [facility] Calcium [Mass/Vol] 8.9 mg/dL 8.5 - 10. 5 mg/dL [facility] Chloride [Moles/Vol] 99 mmol/L 98 - 109 mmol/L [facility] CO2 [Moles/Vol] 30 mmol/L 22 - 32 mmol/L [facility] Creatinine [Mass/Vol] 0.57 mg/dL 0.40 - 1.00 mg/dL [facility] Comment on above: METHOD TRACEABLE TO [facility] STANDARD eGFR (CKD-EPI)non-race dependent - PINF [facility] Comment on above: Reported eGFR is based on the CKD-EPI 2020 equation that does not use a race coefficient. Glucose [Mass/Vol] 147 mg/dL High 65 - 99 mg/dL [facility] Interpretation and review of laboratory results Abnormal [facility] Potassium [Moles/Vol] 4.7 mmol/L 3.5 - 5.0 mmol/L [facility] Protein [Mass/Vol] 7.3 g/dL 6.0 - 8.0 g/dL [facility] Sodium [Moles/Vol] 139 mmol/L 134 - 146 mmol/L [facility] Urea nitrogen [Mass/Vol] 16 mg/dL 5 - 23 mg/dL [facility] Glucose Glucometer (BldC) [M ass/Vol]on 11-10-2023 Glucose [Mass/Vol] 127 mg/dL High 65 - 99 mg/dL [facility] Interpretation and review of laboratory results Abnormal [facility] Glucose [Mass/Vol] 127 mg/dL High 65-99 [facility] Glucose [Mass/Vol] 130 mg/dL High 65 - 99 mg/dL [facility] Interpretation and review of laboratory results Abnormal [facility] Glucose [Mass/Vol] 130 mg/dL High 65-99 [facility] Glucose [Mass/Vol] 214 mg/dL High 65 - 99 mg/dL [facility] Interpretation and review of laboratory results Abnormal [facility] Glucose [Mass/Vol] 214 mg/dL High 65-99 [facility] MAGNESIUMon 11-10-2023 Magnesium [Mass/Vol] 2.1 mg/dL Normal 1.8-2.6 [facility] Comment on above: Performed By: #### C MP, , CBCA ####[facility] ([id number])[address] [place] [address] 33086 Magnesiumon 11-10-2023 Magnesium [Mass/Vol] 2.1 mg/dL 1.8 - 2.6 mg/dL [facility] No Panel Informationon 11-10 [facility] CBC AND AUTO DIFFon 11-09-19 24 ABSOLUTE BASOPHIL 0.1 X10E9/L Normal 0.0-0.2 [facility] Comment on above: Performed By: #### C BCA, PINR, CMP, , 2777-1, 49004-8, THYR ####[facility] ([id number])[address] [place] [address] 17516 ABSOLUTE NEUTROPHIL 11.6 X10E9/L High 1.5-6.6 [facility] Comment on above: Performed By: #### C BCA, PINR, CMP, 73451-6, 2777-1, 44101-9, THYR ####[facility] ([id number])[address] [place] [address] 60696 Basophils/100 WBC (Bld) 0.4 % Normal [facility] Comment on above: Performed By: #### C BCA, PINR, CMP, 30247-4, 7-1, 65294-0, THYR ####[facility] ([id number])[address] [place] [address] 39442 Eosinophils (Bld) [#/Vol] 0.0 10*3/uL Normal 0.0-0.4 [facility] Comment on above: Performed By: #### C BCA, PINR, CMP, , 2776-, 41578-6, THYR ####[facility] ([id number])[address] [place] [address] 62503 Eosinophils/100 WBC (Bld) 0.0 % Normal [facility] Comment on above: Performed By: #### C BCA, PINR, CMP, , 2776-10, 02804-7, THYR ####[facility] ([id number])[address] [place] [address] 85499 Erythrocyte distribution width (RBC) [Ratio] 15.6 % High 11.5-15.0 [facility] Comment on above: Performed By: #### C BCA, PINR, CMP, , 2776-10, 07494-7, THYR ####[facility] ([id number])[address] [place] [address] 22998 Hematocrit (Bld) [Volume fraction] 46.7 % Normal 35-47 [facility] Comment on above: Performed By: #### C BCA, PINR, CMP, , 2776-, 97543-5, THYR ####[facility] ([id number])[address] [place] [address] 89037 Hemoglobin (Bld) [Mass/Vol] 15.0 g/dL Normal 11.7-15.5 [facility] Comment on above: Performed By: #### C BCA, PINR, CMP, , 2776-1, 37715-9, THYR ####[facility] ([id number])[address] [place] [address] 51371 Lymphocytes (Bld) [#/Vol] 0.6 10*3/uL Low 1.0-3.5 [facility] Comment on above: Performed By: #### C BCA, PINR, CMP, , 2776-, 73143-3, THYR ####[facility] ([id number])[address] [place] [address] 78912 Lymphocytes/100 WBC (Bld) 4.3 % Normal [facility] Comment on above: Performed By: #### C BCA, PINR, CMP, , 2776-, 80882-3, THYR ####[facility] ([id number])[address] [place] [address] 69133 MCH (RBC) [Entitic mass] 29.0 pg Normal 27-34 [facility] Comment on above: Performed By: #### C BCA, PINR, CMP, , 2776-, 46752-5, THYR ####[facility] ([id number])[address] [place] [address] 60961 MCHC (RBC) [Mass/Vol] 32.2 g/dL Normal 32-36 [facility] Comment on above: Performed By: #### C BCA, PINR, CMP, , 2776-1, 47416-3, THYR ####[facility] ([id number])[address] [place] [address] 03626 MCV (RBC) [Entitic vol] 90 fL Normal 80-100 [facility] Comment on above: Performed By: #### C BCA, PINR, CMP, , 2776-, 89830-3, THYR ####[facility] ([id number])[address] [place] [address] 25163 Monocytes (Bld) [#/Vol] 0.6 10*3/uL Normal 0-0.9 [facility] Comment on above: Performed By: #### C BCA, PINR, CMP, 39122-6, 2777-1, 73969-5, THYR ####[facility] ([id number])[address] [place] [address] 63754 Monocytes/100 WBC (Bld) 4.5 % Normal [facility] Comment on above: Performed By: #### C BCA, PINR, CMP, 76373-7, 2777-1, 51185-3, THYR ####[facility] ([id number])[address] [place] [address] 73409 Neutrophils/100 WBC (Bld) 90.8 % Normal [facility] Comment on above: Performed By: #### C BCA, PINR, CMP, 90595-9, 2777-1, 03530-3, THYR ####[facility] ([id number])[address] [place] [address] 79205 Platelet mean volume (Bld) [Entitic vol] 8.8 fL Normal 7-12 [facility] Comment on above: Performed By: #### C BCA, PINR, CMP, 23993-9, 2777-1, 26778-0, THYR ####[facility] ([id number])[address] [place] [address] 08184 Platelets (Bld) [#/Vol] 167 10*3/uL Normal 150-450 [facility] Comment on above: Performed By: #### C BCA, PINR, CMP, 32568-7, 2777-1, 52172-2, THYR ####[facility] ([id number])[address] [place] [address], [place] [address] RBC COUNT 5.19 X10E12/L Normal 3.80-5.20 [facility] Comment on above: Performed By: #### C BCA, PINR, CMP, 14076-9, 7-1, 57366-3, THYR ####[facility] ([id number])[address] [place] [address] WBC (Bld) [#/Vol] 12.8 10*3/uL High 4.0-11.0 [facility] Comment on above: Performed By: #### C BCA, PINR, CMP, 72325-9, 2776-1, 04368-8, THYR ####[facility] ([id number])[address] [place] [address] CBC auto differentialon 10-28 Basophils (Bld) [#/Vol] 0.1 10*3/uL [facility] Basophils/100 WBC (Bld) 0.4 % [facility] Eosinophils (Bld) [#/Vol] 0.0 10*3/uL [facility] Eosinophils/100 WBC (Bld) 0.0 % [facility] Erythrocyte distribution width (RBC) [Ratio] 15.6 % High 11.5 - 15.0 % [facility] Hematocrit (Bld) [Volume fraction] 46.7 % 35 - 47 % [facility] Hemoglobin (Bld) [Mass/Vol] 15.0 g/dL 11.7 - 15.5 g/dL [facility] Interpretation and review of laboratory results Abnormal [facility] Lymphocytes (Bld) [#/Vol] 0.6 10*3/uL Low [facility] Lymphocytes/100 WBC (Bld) 4.3 % [facility] MCH (RBC) [Entitic mass] 29.0 pg 27 - 34 pg [facility] MCHC (RBC) [Mass/Vol] 32.2 g/dL 32 - 36 g/dL [facility] MCV (RBC) [Entitic vol] 90 fL 80 - 100 fL [facility] Monocytes (Bld) [#/Vol] 0.6 10*3/uL [facility] Monocytes/100 WBC (Bld) 4.5 % [facility] Neutrophils (Bld) [#/Vol] 11.6 10*3/uL High [facility] Neutrophils/100 WBC (Bld) 90.8 % [facility] Platelet mean volume (Bld) [Entitic vol] 8.8 fL 7 - 12 fL [facility] Platelets (Bld) [#/Vol] 167 10*3/uL [facility] RBC (Bld) [#/Vol] 5.19 10*6/uL [facility] WBC corrected for nucl RBC Auto (Bld) [#/Vol] 12.8 High [facility] COMPREHENSIVE METABOLIC PANE [place] 11-09-2023 Albumin [Mass/Vol] 3.5 g/dL Normal 3.2-5.3 [facility] Comment on above: Performed By: #### C BCA, PINR, CMP, 65956-3, 2777-1, 49032-3, THYR ####[facility] ([id number])[address] [place] [address] 43731 ALP [Catalytic activity/Vol] 60 U/L Normal 39-130 [facility] Comment on above: Performed By: #### C BCA, PINR, CMP, 43846-3, 2777-1, 84820-5, THYR ####[facility] ([id number])[address] [place] [address] 61711 ALT [Catalytic activity/Vol] 23 U/L Normal 0-31 [facility] Comment on above: Performed By: #### C BCA, PINR, CMP, 09130-4, 2777-1, 12456-5, THYR ####[facility] ([id number])[address] [place] [address] 58654 Anion gap [Moles/Vol] 9 mmol/L Normal 5-15 [facility] Comment on above: Performed By: #### C BCA, PINR, CMP, 43880-1, 2777-1, 01884-9, THYR ####[facility] ([id number])[address] [place] [address] 08463 AST [Catalytic activity/Vol] 27 U/L Normal 0-41 [facility] Comment on above: Performed By: #### C BCA, PINR, CMP, , 2776-1, 98778-0, THYR ####[facility] ([id number])[address] [place] [address] 69444 Bilirubin [Mass/Vol] 0.4 mg/dL Normal 0.3-1.2 [facility] Comment on above: Performed By: #### C BCA, PINR, CMP, , 2776-1, 95636-5, THYR ####[facility] ([id number])[address] [place] [address] 21691 Calcium [Mass/Vol] 8.6 mg/dL Normal 8.5-10.5 [facility] Comment on above: Performed By: #### C BCA, PINR, CMP, , 2776-1, 82950-4, THYR ####[facility] ([id number])[address] [place] [address] 40784 Chloride [Moles/Vol] 102 mmol/L Normal 98-109 [facility] Comment on above: Performed By: #### C BCA, PINR, CMP, 06258-2, 2777-1, 52771-7, THYR ####[facility] ([id number])[address] [place] [address] 39815 CO2 [Moles/Vol] 26 mmol/L Normal 22-32 [facility] Comment on above: Performed By: #### C BCA, PINR, CMP, 66833-6, 277-1, 83347-9, THYR ####[facility] ([id number])[address] [place] [address] 94930 Creatinine [Mass/Vol] 0.49 mg/dL Normal 0.40-1.00 [facility] Comment on above: Result Comment: METH OD TRACEABLE TO [employer]MS STANDARD Performed By: #### C BCA, PINR, CMP, , 2776-, 06807-9, THYR ####[facility] ([id number])[address] [place] [address] 30865 eGFR (CKD-EPI) NON-RACE DEPENDENT >90 Normal >59 [facility] Comment on above: Result Comment: Repo rted eGFR is based on theCKD-EPI 2020 equation that doesnot use a race coefficient. Performed By: #### C BCA, PINR, CMP, , 2776-10, 32617-4, THYR ####[facility] ([id number])[address] [place] [address] 46482 Glucose [Mass/Vol] 177 mg/dL High 65-99 [facility] Comment on above: Performed By: #### C BCA, PINR, CMP, , 2776-10, 00704-7, THYR ####[facility] ([id number])[address] [place] [address] 69338 Potassium [Moles/Vol] 4.5 mmol/L Normal 3.5-5.0 [facility] Comment on above: Performed By: #### C BCA, PINR, CMP, , 2776-10, 46372-1, THYR ####[facility] ([id number])[address] [place] [address] 88682 Protein [Mass/Vol] 7.3 g/dL Normal 6.0-8.0 [facility] Comment on above: Performed By: #### C BCA, PINR, CMP, , 7-1, 92987-4, THYR ####[facility] ([id number])[address] [place] [address] 12117 Sodium [Moles/Vol] 137 mmol/L Normal 134-146 [facility] Comment on above: Performed By: #### C BCA, PINR, CMP, 61071-0, 7-1, 26775-0, THYR ####[facility] ([id number])[address] [place] [address] 87956 Urea nitrogen [Mass/Vol] 14 mg/dL Normal 5-23 [facility] Comment on above: Performed By: #### C BCA, PINR, CMP, 75616-2, 7-1, 97613-3, THYR ####[facility] ([id number])[address] [place] [address] 83332 Comprehensive metabolic pane charles 11-09-2023 Albumin [Mass/Vol] 3.5 g/dL 3.2 - 5.3 g/dL [facility] ALP [Catalytic activity/Vol] 60 U/L 39 - 130 U/L [facility] ALT No additional P-5'-P [Catalytic activity/Vol] 23 U/L 0 - 31 U/L [facility] Anion gap [Moles/Vol] 9 mmol/L 5 - 15 mmol/L [facility] AST [Catalytic activity/Vol] 27 U/L 0 - 41 U/L [facility] Bilirubin [Mass/Vol] 0.4 mg/dL 0.3 - 1.2 mg/dL [facility] Calcium [Mass/Vol] 8.6 mg/dL 8.5 - 10. 5 mg/dL [facility] Chloride [Moles/Vol] 102 mmol/L 98 - 109 mmol/L [facility] CO2 [Moles/Vol] 26 mmol/L 22 - 32 mmol/L [facility] Creatinine [Mass/Vol] 0.49 mg/dL 0.40 - 1.00 mg/dL [facility] Comment on above: METHOD TRACEABLE TO [employer] STANDARD eGFR (CKD-EPI)non-race dependent - PINF [facility] Comment on above: Reported eGFR is based on the CKD-EPI 2020 equation that does not use a race coefficient. Glucose [Mass/Vol] 177 mg/dL High 65 - 99 mg/dL [facility] Interpretation and review of laboratory results Abnormal [facility] Potassium [Moles/Vol] 4.5 mmol/L 3.5 - 5.0 mmol/L [facility] Protein [Mass/Vol] 7.3 g/dL 6.0 - 8.0 g/dL [facility] Sodium [Moles/Vol] 137 mmol/L 134 - 146 mmol/L [facility] Urea nitrogen [Mass/Vol] 14 mg/dL 5 - 23 mg/dL [facility] Glucose Glucometer (BldC) [M ass/Vol]on 11-09-2023 Glucose [Mass/Vol] 188 mg/dL High 65 - 99 mg/dL [facility] Interpretation and review of laboratory results Abnormal [facility] Glucose [Mass/Vol] 188 mg/dL High 65-99 [facility] Glucose [Mass/Vol] 169 mg/dL High 65 - 99 mg/dL [facility] Interpretation and review of laboratory results Abnormal [facility] Glucose [Mass/Vol] 169 mg/dL High 65-99 [facility] Glucose [Mass/Vol] 120 mg/dL High 65-99 [facility] Interpretation and review of laboratory results Abnormal [facility] MAGNESIUMon 11-09-2023 Magnesium [Mass/Vol] 2.0 mg/dL Normal 1.8-2.6 [facility] Comment on above: Performed By: #### C BCA, PINR, CMP, 95892-4, 2777-1, 80305-2, THYR ####[facility] ([id number])[address] [place] [address] Magnesiumon 11-09-2023 Magnesium [Mass/Vol] 2.0 mg/dL 1.8 - 2.6 mg/dL [facility] No Panel Informationon 11-09 [facility] PHOSPHORUSon 11-09-2023 Phosphate [Mass/Vol] 3.1 mg/dL Normal 2.4-4.9 [facility] Comment on above: Performed By: #### C BCA, PINR, CMP, 68126-8, 2777-1, 13809-9, THYR ####[facility] ([id number])[address] [place] [address] 36916 PROTIME AND INRon 11-09-2023 INR Coag (PPP) [Relative time] 1.0 {INR} Normal 0.8-1.1 [facility] Comment on above: Performed By: #### C BCA, PINR, CMP, 76389-9, 2777-1, 02643-6, THYR ####[facility] ([id number])[address] [place] [address] 87030 PT Coag (PPP) [Time] 11.7 s Normal 9.8-13.2 [facility] Comment on above: Result Comment: NEW REFERENCE RANGE Performed By: #### C BCA, PINR, CMP, 03921-1, 2777-1, 10768-8, THYR ####[facility] ([id number])[address] [place] [address] 41459 Phosphoruson 11-09-2023 Phosphate [Mass/Vol] 3.1 mg/dL 2.4 - 4.9 mg/dL [facility] Procalcitoninon 11-09-2023 Procalcitonin IA [Mass/Vol] 0.09 ng/mL High NINF - 0.05 ng/mL [facility] Comment on above: NOTE <0.50 ng/mL - Low risk of severe sepsis and/or septic shock. <2.00 ng/mL - Recommend retesting within 6-24 hours. >2.00 ng/mL - High risk of sepsis and/or septic shock. Procalcitonin IA [Mass/Vol]o n 11-09-2023 Interpretation and review of laboratory results Abnormal [facility] PROCALCITONIN 0.09 ng/mL High <0.05 [facility] Comment on above: Result Comment: NOTE <0.50 ng/mL - Low risk of severe sepsis and/or septic shock.<2.00 ng/mL - Recommend retesting within 6-24 hours.>2.00 ng/mL - High risk of sepsis and/or septic shock. Performed By: #### C BCA, PINR, CMP, 44062-1, 2777-1, 29857-5, THYR ####[facility] ([id number])[address] [place] [address] 17810 Protime & INRon 11-09-2023 INR Coag (PPP) [Relative time] 1.0 {INR} [facility] PT Coag (PPP) [Time] 11.7 s [facility] Comment on above: NEW REFERENCE RANGE [facility] THYROID PROFILEon 11-09-2023 Free T4 [Mass/Vol] 0.66 ng/dL Normal 0.61-1.60 [facility] Comment on above: Performed By: #### C BCA, PINR, CMP, 10325-3, 2777-1, 96020-8, THYR ####[facility] ([id number])[address] [place] [address] 74090 TSH 0.29 uIU/mL Low 0.49-4.67 [facility] Comment on above: Performed By: #### C BCA, PINR, CMP, 59807-0, 2777-1, 75619-5, THYR ####[facility] ([id number])[address] [place] [address] 17373 Thyroid profile includes TSH FT4on 11-09-2023 Free T4 [Mass/Vol] 0.66 ng/dL 0.61 - 1.60 ng/dL [facility] Interpretation and review of laboratory results Abnormal [facility] TSH Qn 0.29 m[IU]/L Low [facility] CBC AND AUTO DIFFon 11-08-19 24 ABSOLUTE BASOPHIL 0.0 X10E9/L Normal 0.0-0.2 [facility] Comment on above: Performed By: #### C MP, CBCA ####[facility] ([id number])[address] [place] [address] 04357 ABSOLUTE NEUTROPHIL 5.7 X10E9/L Normal 1.5-6.6 [facility] Comment on above: Performed By: #### C MP, CBCA ####[facility] ([id number])[address] [place] [address] 30482 Basophils/100 WBC (Bld) 0.6 % Normal [facility] Comment on above: Performed By: #### C MP, CBCA ####[facility] ([id number])[address] [place] [address] 35940 Eosinophils (Bld) [#/Vol] 0.0 10*3/uL Normal 0.0-0.4 [facility] Comment on above: Performed By: #### C MP, CBCA ####[facility] ([id number])[address] [place] [address] 64773 Eosinophils/100 WBC (Bld) 0.0 % Normal [facility] Comment on above: Performed By: #### C MP, CBCA ####[facility] ([id number])[address] [place] [address] 09630 Erythrocyte distribution width (RBC) [Ratio] 15.7 % High 11.5-15.0 [facility] Comment on above: Performed By: #### C MP, CBCA ####[facility] ([id number])[address] [place] [address] 97507 Hematocrit (Bld) [Volume fraction] 46.0 % Normal 35-47 [facility] Comment on above: Performed By: #### C MP, CBCA ####[facility] ([id number])[address] [place] [address] [place] [address] Hemoglobin (Bld) [Mass/Vol] 15.3 g/dL Normal 11.7-15.5 [facility] Comment on above: Performed By: #### C MP, CBCA ####[facility] ([id number])[address] [place] [address] 08504 Lymphocytes (Bld) [#/Vol] 0.9 10*3/uL Low 1.0-3.5 [facility] Comment on above: Performed By: #### C MP, CBCA ####[facility] ([id number])[address] [place] [address] 57313 Lymphocytes/100 WBC (Bld) 12.1 % Normal [facility] Comment on above: Performed By: #### C MP, CBCA ####[facility] ([id number])[address] [place] [address] 98875 MCH (RBC) [Entitic mass] 29.7 pg Normal 27-34 [facility] Comment on above: Performed By: #### C MP, CBCA ####[facility] ([id number])[address] [place] [address] 34778 MCHC (RBC) [Mass/Vol] 33.2 g/dL Normal 32-36 [facility] Comment on above: Performed By: #### C MP, CBCA ####[facility] ([id number])[address] [place] [address] 71472 MCV (RBC) [Entitic vol] 90 fL Normal 80-100 [facility] Comment on above: Performed By: #### C MP, CBCA ####[facility] ([id number])[address] [place] [address] 90239 Monocytes (Bld) [#/Vol] 0.6 10*3/uL Normal 0-0.9 [facility] Comment on above: Performed By: #### C MP, CBCA ####[facility] ([id number])[address] [place] [address] 35148 Monocytes/100 WBC (Bld) 8.7 % Normal [facility] Comment on above: Performed By: #### C MP, CBCA ####[facility] ([id number])[address] [place] [address], [place] [address] Neutrophils/100 WBC (Bld) 78.6 % Normal [facility] Comment on above: Performed By: #### C MP, CBCA ####[facility] ([id number])[address] [place] [address] 78068 Platelet mean volume (Bld) [Entitic vol] 8.3 fL Normal 7-12 [facility] Comment on above: Performed By: #### C MP, CBCA ####[facility] ([id number])[address] [place] [address] 08965 Platelets (Bld) [#/Vol] 162 10*3/uL Normal 150-450 [facility] Comment on above: Performed By: #### C MP, CBCA ####[facility] ([id number])[address] [place] [address] 02445 RBC COUNT 5.14 X10E12/L Normal 3.80-5.20 [facility] Comment on above: Performed By: #### C MP, CBCA ####[facility] ([id number])[address] [place] [address] 32295 WBC (Bld) [#/Vol] 7.3 10*3/uL Normal 4.0-11.0 [facility] Comment on above: Performed By: #### C MP, CBCA ####[facility] ([id number])[address] [place] [address] 40702 CBC auto differentialon 10-28 Basophils (Bld) [#/Vol] 0.0 10*3/uL [facility] Basophils/100 WBC (Bld) 0.6 % [facility] Eosinophils (Bld) [#/Vol] 0.0 10*3/uL [facility] Eosinophils/100 WBC (Bld) 0.0 % [facility] Erythrocyte distribution width (RBC) [Ratio] 15.7 % High 11.5 - 15.0 % [facility] Hematocrit (Bld) [Volume fraction] 46.0 % 35 - 47 % [facility] Hemoglobin (Bld) [Mass/Vol] 15.3 g/dL 11.7 - 15.5 g/dL [facility] Interpretation and review of laboratory results Abnormal [facility] Lymphocytes (Bld) [#/Vol] 0.9 10*3/uL Low [facility] Lymphocytes/100 WBC (Bld) 12.1 % [facility] MCH (RBC) [Entitic mass] 29.7 pg 27 - 34 pg [facility] MCHC (RBC) [Mass/Vol] 33.2 g/dL 32 - 36 g/dL [facility] MCV (RBC) [Entitic vol] 90 fL 80 - 100 fL [facility] Monocytes (Bld) [#/Vol] 0.6 10*3/uL [facility] Monocytes/100 WBC (Bld) 8.7 % [facility] Neutrophils (Bld) [#/Vol] 5.7 10*3/uL [facility] Neutrophils/100 WBC (Bld) 78.6 % [facility] Platelet mean volume (Bld) [Entitic vol] 8.3 fL 7 - 12 fL [facility] Platelets (Bld) [#/Vol] 162 10*3/uL [facility] RBC (Bld) [#/Vol] 5.14 10*6/uL [facility] WBC corrected for nucl RBC Auto (Bld) [#/Vol] 7.3 [facility] COMPREHENSIVE METABOLIC PANE Charles 11-08-2023 Albumin [Mass/Vol] 3.5 g/dL Normal 3.2-5.3 [facility] Comment on above: Performed By: #### C MP, CBCA ####[facility] ([id number])[address] [place] [address], [place] [address] ALP [Catalytic activity/Vol] 63 U/L Normal 39-130 [facility] Comment on above: Performed By: #### C MP, CBCA ####[facility] ([id number])[address] [place] [address], [place] [address] ALT [Catalytic activity/Vol] 23 U/L Normal 0-31 [facility] Comment on above: Performed By: #### C MELISA, CBCA ####[facility] ([id number])[address] [place] [address] [place] [address] Anion gap [Moles/Vol] 7 mmol/L Normal 5-15 [facility] Comment on above: Performed By: #### C MELISA, CBCA ####[facility] ([id number])[address] [place] [address], [place] [address] AST [Catalytic activity/Vol] 30 U/L Normal 0-41 [facility] Comment on above: Performed By: #### C MP, CBCA ####[facility] ([id number])[address] [place] [address] [place] [address] Bilirubin [Mass/Vol] 0.5 mg/dL Normal 0.3-1.2 [facility] Comment on above: Performed By: #### C MP, CBCA ####[facility] ([id number])[address] [place] [address], [place] [address] Calcium [Mass/Vol] 8.0 mg/dL Low 8.5-10.5 [facility] Comment on above: Performed By: #### C MP, CBCA ####[facility] ([id number])[address] [place] [address], [place] [address] Chloride [Moles/Vol] 100 mmol/L Normal 98-109 [facility] Comment on above: Performed By: #### C PAMELA VINCENT ####[facility] ([id number])[address] [place] [address] CO2 [Moles/Vol] 27 mmol/L Normal 22-32 [facility] Comment on above: Performed By: #### C PAMELA VINCENT ####[facility] ([id number])[address] [place] [address] Creatinine [Mass/Vol] 0.62 mg/dL Normal 0.40-1.00 [facility] Comment on above: Result Comment: METH OD TRACEABLE TO IDMS STANDARD Performed By: #### C PAMELA VINCENT ####[facility] ([id number])[address] [place] [address] eGFR (CKD-EPI) NON-RACE DEPENDENT >90 Normal >59 [facility] Comment on above: Result Comment: Repo rted eGFR is based on theCKD-EPI 2020 equation that doesnot use a race coefficient. Performed By: #### C PAMELA VINCENT ####[facility] ([id number])[address] [place] [address] Glucose [Mass/Vol] 115 mg/dL High 65-99 [facility] Comment on above: Performed By: #### C PAMELA VINCENT ####[facility] ([id number])[address] [place] [address] Potassium [Moles/Vol] 3.4 mmol/L Low 3.5-5.0 [facility] Comment on above: Performed By: #### C PAMELA VINCENT ####[facility] ([id number])[address] [place] [address] Protein [Mass/Vol] 7.1 g/dL Normal 6.0-8.0 [facility] Comment on above: Performed By: #### C MELISA, CBCA ####[facility] ([id number])[address] [place] [address] Sodium [Moles/Vol] 134 mmol/L Normal 134-146 [facility] Comment on above: Performed By: #### C MELISA, CBCA ####[facility] ([id number])[address] [place] [address] Urea nitrogen [Mass/Vol] 12 mg/dL Normal 5-23 [facility] Comment on above: Performed By: #### C MELISA, CBCA ####[facility] ([id number])[address] [place] [address] Comprehensive metabolic pane charles 11-08-2023 Albumin [Mass/Vol] 3.5 g/dL 3.2 - 5.3 g/dL [facility] ALP [Catalytic activity/Vol] 63 U/L 39 - 130 U/L [facility] ALT No additional P-5'-P [Catalytic activity/Vol] 23 U/L 0 - 31 U/L [facility] Anion gap [Moles/Vol] 7 mmol/L 5 - 15 mmol/L [facility] AST [Catalytic activity/Vol] 30 U/L 0 - 41 U/L [facility] Bilirubin [Mass/Vol] 0.5 mg/dL 0.3 - 1.2 mg/dL [facility] Calcium [Mass/Vol] 8.0 mg/dL Low 8.5 - 10. 5 mg/dL [facility] Chloride [Moles/Vol] 100 mmol/L 98 - 109 mmol/L [facility] CO2 [Moles/Vol] 27 mmol/L 22 - 32 mmol/L [facility] Creatinine [Mass/Vol] 0.62 mg/dL 0.40 - 1.00 mg/dL [facility] Comment on above: METHOD TRACEABLE TO IDMO STANDARD eGFR (CKD-EPI)non-race dependent - PINF [facility] Comment on above: Reported eGFR is based on the CKD-EPI 2020 equation that does not use a race coefficient. Glucose [Mass/Vol] 115 mg/dL High 65 - 99 mg/dL [facility] Interpretation and review of laboratory results Abnormal [facility] Potassium [Moles/Vol] 3.4 mmol/L Low 3.5 - 5.0 mmol/L [facility] Protein [Mass/Vol] 7.1 g/dL 6.0 - 8.0 g/dL [facility] Sodium [Moles/Vol] 134 mmol/L 134 - 146 mmol/L [facility] Urea nitrogen [Mass/Vol] 12 mg/dL 5 - 23 mg/dL [facility] ECG 12 leadon 11-08-2023 TRACEMASTERVUE [facility] Glucose Glucometer (BldC) [M ass/Vol]on 11-08-2023 Glucose [Mass/Vol] 224 mg/dL High 65 - 99 mg/dL [facility] Interpretation and review of laboratory results Abnormal [facility] Glucose [Mass/Vol] 224 mg/dL High 65-99 [facility] SARS/FLU A+B/RSV by NAAT/Mol ecularon 11-08-2023 SARS/FLU A+B/RSV by NAAT/Molecular Normal [facility] Comment on above: Performed By: #### C OVFLR ####[facility] ([id number])[address] [place] [address] SARS/FLU A+B/RSV by NAAT/Mol ecular (M4RT Collection Tube)on 11-08-2023 FLUAV+FLUBV RNA ELIU+probe Ql (Unsp spec) Positive Abnormal Negative^N egative [facility] FLUAV+FLUBV RNA ELIU+probe Ql (Unsp spec) Negative Negative^N egative [facility] Interpretation and review of laboratory results Abnormal [facility] RSV RNA ELIU+probe Nom (Unsp spec) Negative Negative^N egative [facility] SARS-CoV-2 (COVID-19) RNA ELIU+probe Ql (Resp) Not detected Not Detected^N ot Detected [facility] Comment on above: NOTE The Xpert Xpress SARS-CoV-2/Flu/RSV Plus test is a rapid, multiplexed real-time RT-PCR test intended for the simultaneous qualitative detection and differentiation of SARS-CoV-2, influenza A, influenza B and respiratory syncytial virus (RSV) viral RNA from individuals suspected of respiratory viral infection consistent with COVID-19 by their healthcare provider. This test has not been validated in asymptomatic patients. The Xpert Xpress SARS-CoV-2 test is intended for use by qualified and trained operators who are performing tests using either [employer] or [employer] systems and is limited to laboratories that meet the CLIA requirements to perform high and moderate complexity tests. The Xpert Xpress SARS-CoV-2/Flu/RSV Plus is only for use under the Food and Drug Administration's Emergency Use Authorization. Results are for the simultaneous detection and differentiation of SARS-CoV-2, influenza A, influenza B and RSV nucleic acids in clinical specimens. SARS-CoV-2, influenza A, influenza B and RSV RNA identified by this test are generally detectable in upper respiratory samples during the acute phase of infection. Positive results are indicative of the presence of the identified virus, but do not rule out bacterial infection or co-infection with other pathogens not detected by this test. Clinical correlation with patient history and other diagnostic information is necessary to determine patient infection status. The agent detected may not be the definite cause of disease. Negative results do not preclude SARS-CoV-2, influenza A, influenza B and RSV infection and should not be used as the sole basis for treatment or other patient management decisions. Negative results must be combined with clinical observations, patient history and epidemiological information. An Invalid result may occur with specimen-associated inhibition unable to be resolved with specimen repeat. Fact Sheet for Healthcare Providers: https://www.fda.gov/media/465435/download Fact Sheet for Patients: https://www.fda.gov/media/477198/download [facility] XR CHEST 1 VWon 11-08-2023 XR CHEST 1 VW Normal [facility] XR Chest Single viewon 11-08 Christine Sweeney, DO - 11/08/2023 Procedure: Chest x-ray performed Number of views:AP portable History:Shortness of breath Comparison:09/11/2023 Findings: The heart and lungs show no acute findings, and the mediastinum and brandon are grossly negative . Impression: No acute change. Finalized by Christine Sweeney DO on 11/08/2023 2:44 PM [facility] Study observation (narrative) [facility] XR Chest Single viewOrdered By: Christine Sweeney on 11-08-2023 [facility] Work Phone: Procedure Visiton 11-06-2023 Procedure Visit [id number] ErrolNara sorto S 1970 F Date Provider Department Center 11/06/2023 CARLIE BENTLEY MP ORTHO MPORTHO No family history on file Level of Service:514[address] [place] OFFICE/OUTPT VISIT,PROCEDURE ONLY Reason for Visit and Comments: Follow-up [369149] Normal [facility] HCG ( test) Ql (U)o n 10-17-2023 Beta HCG ( test) Ql (U) Negative Normal [facility] Comment on above: Performed By: #### 2 106-3 ####[facility] ([id number])[address] [place] [address] Telephoneon 10-15-2023 Telephone [id number] ErrolNara sorto S 1970 Provider Department Center 10/15/2023 LORNA GREGORY MP ORTHO MPORTHO No family history on file Normal [facility] Office Visiton 09-13-2023 Follow-up visit [id number] ErrolNara sorto S 1970 Date Provider Department Center 09/13/2023 CARLIE BENTLEY MP ORTHO MPORTHO No family history on file Level of Service:71347 [place] OFFICE/OUTPATIENT ESTABLISHED LOW MDM 20-29 MIN (GC) Reason for Visit and Comments: Follow-up [586943] Normal [facility] VC VENOUS REFLUX MICHAEL LMTon 0 03-12-2023 VC VENOUS REFLUX MICHAEL LMT Patient: NIKOLE BANERJEE Exam Date: 03/12/2023 : 1970 Gender:F Ordering : DR JENNIFER CASTRO M.D. Admission #: [id number] Family : Order #: [id number] CLICK HERE TO VIEW EXAM RADIOLOGY REPORT PROCEDURE: VEIN CENTER ULTRASOUND VENOUS REFLUX BILATERAL LIMTED COMPARISON: None. INDICATIONS: Pain co-occurrent and due to varicose veins of bilateral legs I83.813 TECHNIQUE: Duplex imaging of the lower extremity to assess the deep and superficial venous system for the presence of deep or superficial venous incompetence and to document the location and severity of disease. The study includes evaluation of the great saphenous vein (GSV), anterior accessory saphenous vein (AASV) and small saphenous vein (SSV). Patient scanned in reverse Trendelenburg and standing. FINDINGS: RIGHT LOWER EXTREMITY: Saphenofemoral Junction Reflux: Yes 9.1mm 3.4 sec GSV: Diam (mm) Reflux/ Time (sec) Proximal Thigh 8.6 Yes 3.2 Mid Thigh 8.2 Yes 2.8 Distal Thigh 8.3 Yes 2.2 Prox Calf 7.2 Yes 1.2 Mid Calf 3.9 Yes 0.8 Saphenopopliteal Junction Reflux: 3.3mm No SSV: Proximal Calf 3.3 No Mid Calf 4.2 No AASV: Not present Thrombi: No acute or chronic thrombus visualzied Compressibility: Normal Flow: Normal Preforator: Dist/med calf 2.2mm with 0s reflux. Mid/med calf 3.2mm with 0s reflux. Tech Note: Incompetent SFJ and GSV. Patent varicose vein dist/med calf 2.7mm with 0s reflux. Patent varicose vein prox/med calf 5.8mm with 1.8s reflux. Patent varicose vein prox/med calf 3.4mm with 1.0s reflux. Patent varicose vein dist/med thigh 3.5mm with 0.9s reflux. Patent varicose vein mid/post calf 4.7mm with 0.9s reflux. 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 Tech Note: Incompetent SFJ and GSV. Patent varicose vein dist/med calf 2.5mm with 0s reflux. Patent varicose vein mdi/med thigh 3.2mm with 1.0s reflux. CONCLUSION: 1. Moderate to severe right and mild left great saphenous vein venous insufficiency with saphenopopliteal junction reflux and associated dilatation 2. Mild venous insufficiency/reflux mid left anterior accessory saphenous vein without dilatation 3. Bilateral incompetent varicose veins, right greater than left Dictated by: Shakira Mary MD on 03/12/2023 at 12:02 Approved by: Shakira Mary MD on 03/12/2023 at 12:10 Normal [facility] Pap IG, rfx Aptima HPV, rfx 16/18,45on 02-20-2023 . . Normal [facility] Comment on above: Result Comment: Perf ormed at: WB Performed By: #### P APHR2A #### [facility] [address] [place] [address] Dr. Marco Antonio Joshi DIAGNOSIS: Comment Normal [facility] Comment on above: Result Comment: NEGA TIVE FOR INTRAEPITHELIAL LESION OR MALIGNANCY. Performed at: WB Performed By: #### P APHR2A #### [facility] [address] [address] [address] Marco Antonio Joshi HPV Aptima Negative Normal Negative [facility] Comment on above: Result Comment: This nucleic acid amplification test detects fourteen high-risk HPV types (16,18,31,33,35,39,45,51,52,56,58,59,66,68) without differentiation. Performed at: =G Performed By: #### P APHR2A #### [facility] [address] [address] [address] Marco Antonio Joshi HPV Genotype Reflex Comment Normal [facility] Comment on above: Result Comment: Crit eria not met, HPV Genotype not performed. Performed at: WB Performed By: #### P APHR2A #### [facility] [address] [address] [address] Marco Antonio Joshi Methodology: Comment Normal [facility] Comment on above: Result Comment: This liquid based ThinPrep(R) pap test was screened with the use of an image guided system. Performed at: WB Performed By: #### P APHR2A #### [facility] [address] [address] [address] Marco Antonio Joshi Note: Comment Normal [facility] Comment on above: Result Comment: The Pap smear is a screening test designed to aid in the detection of premalignant and malignant conditions of the uterine cervix. It is not a diagnostic procedure and should not be used as the sole means of detecting cervical cancer. Both false-positive and false-negative reports do occur. . Performed at: WB Performed By: #### P APHR2A #### [facility] [address] [address] [address] Marco Antonio Joshi Performed by: Comment Normal [facility] Comment on above: Result Comment: Sabrina Vaughn, Bead Builder (ASCP) Performed at: WB Performed By: #### P APHR2A #### [facility] [address] [address] [address] Marco Antonio Joshi Specimen adequacy: Comment Normal [facility] Comment on above: Result Comment: Sati sfactory for evaluation. Endocervical and/or squamous metaplastic cells (endocervical component) are present. Performed at: WB Performed By: #### P APHR2A #### [facility] [address] [address] [address] Marco Antonio Joshi MG MAMM SCREEN 3D MICHAEL CADon 07-27-2022 MG MAMM SCREEN 3D MICHAEL CAD Patient: NIKOLE BANERJEE Exam Date: 07/27/2022 : 1970 Gender:F Ordering : DR ERENDIRA BELTRÁN . Admission #: [id number] Family : Order #: [id number] CLICK HERE TO VIEW EXAM RADIOLOGY REPORT PROCEDURE: MAMMOGRAM SCREENING 3D BILATERAL CAD COMPARISON: MG MAMM SCREEN MICHAEL W CAD, 07/25/2020. MG MAMM SCREEN 3D MICHAEL CAD, 07/26/2021. INDICATIONS: Screening mammography Calculator Name NCI Breast Cancer Risk Assessment Tool 5 Year Breast Cancer Risk 1.50% Lifetime Breast Cancer Risk 12.70% Personal Breast Cancer No Personal Ovarian Cancer No Treatments None Family Cancers Father with lung cancer at age 55; Aunt-paternal with lung cancer at age 60; Cousin-paternal with breast cancer at age 32. LOCATION: [facility] BREAST COMPOSITION: Heterogeneously dense,which may obscure small masses. FINDINGS: DIAGNOSTIC CATEGORY 1--NEGATIVE. NO CHANGE FROM COMPARISON ASSESSMENT. Scattered benign-appearing nodules are present. Scattered benign-appearing calcifications are present. Scattered benign-appearing lymph nodes are present. RIGHT BREAST: No significant suspicious finding. LEFT BREAST: No significant suspicious finding. RECOMMENDATIONS: ROUTINE MAMMOGRAM AND CLINICAL EVALUATION IN 12 MONTHS. PLEASE NOTE: A NORMAL MAMMOGRAM DOES NOT EXCLUDE THE POSSIBILITY OF BREAST CANCER. A CLINICALLY SUSPICIOUS PALPABLE LUMP SHOULD BE BIOPSIED. Dictated by: Shakira Mary MD on 07/27/2022 at 15:27 Approved by: Shakira Mary MD on 07/27/2022 at 15:29 Normal [facility] XR DEXA BONE DENSITYon 07-27 XR DEXA BONE DENSITY EXAMINATION: XR DEXA BONE DENSITY, 07/27/2022 1:01 PM EDT HISTORY: Menopause present COMPARISON: None. TECHNIQUE: Dual-energy X-ray absorptiometry (DEXA) bone density study performed for the axial skeleton. FINDINGS: Bone mineral density of the AP spine L1-L4 measures 1.004 g/sq cm. Young adult T score -1.5. WHO classification: Osteopenia. Bone mineral density in the right femoral trochanter measures 0.682 g/sq cm. T score -1.5. WHO consultation: Osteopenia IMPRESSION: Osteopenia. Moderate fracture risk Electronically authenticated by: SHAKIRA MARY Date: 2022-07-27 18:06 Normal [facility] MRI KNEE WO CONTRAST LEFTon 09-27-2021 MRI KNEE WO CONTRAST LEFT [facility] Department of Radiology [address] [place] [id number] Patient Name: NIKOLE BANERJEE : 1970 Sex: F Age: Race: NA Pt. Location: 84 Patient Status: D Ordered Date: 09/20/2021 12:10:00 PM Completed Date: 09/27/2021 01:36 PM Requesting Provider: JOVANNI YOU Attending Provider: JOVANNI YOU Report Copy To: UNKNOWN, PHYSICIAN Signs & Symptoms: S86.912A Strain of unsp musc/tend at lower leg level, left leg, init I10 History: [place], R breast marker Comments: , , , Ordering Provider - JOVANNI YOU MD , Exam: MRI KNEE WO CONTRAST LEFT MRI KNEE WO CONTRAST LEFT 09/27/2021 1:36 PM CLINICAL INDICATIONS: S86.912A Strain of unsp musc/tend at lower leg level, left leg, init I10 TECHNOLOGIST COMMENTS: Per patient fall on left knee. Pain and difficulty ambulating. QUESTION FOR THE RADIOLOGIST: , , , Ordering Provider - JOVANNI YOU MD , PROTOCOL: Images were obtained in the following sequences: 3-plane localizer, axial PD fat-sat, sagittal PD fat-sat, sagittal GRE, coronal PD fat-sat, and coronal T1. COMPARISON: None. FINDINGS: No acute bone marrow signal abnormality is present. A large joint effusion is evident. There is chondral thinning and irregularity in each compartment with marginal new bone formation. Cruciate and collateral ligaments are intact. There is truncation of the medial meniscal body and longitudinal inferior surface is signal irregularity. The posterior horn of the medial meniscus appears small and there is thinning of the meniscal root. The body is extruded. Lateral meniscal signal and shape are within normal limits. No other periarticular mass or fluid collection is present. IMPRESSION: Changes of osteoarthritis with a large joint effusion Degenerative appearing tear of the body and posterior horn medial meniscus. Meniscal root defect is possible No evidence of the ligament injury. Electronically signed: Martha Bazan. Transcribed by: [email or web address], User Resident: Electronically Signed by: MARTHA Liborio BAZAN @ 09/29/2021 04:02 PM Normal [facility] Comment on above: Order Comment: , , = ========= , Ordering Provider - JOVANNI YOU MD , KNEE LEFT 3 [facility] 08-02-2021 KNEE LEFT 3 S [facility] Department of Radiology [address] [place] [address] Patient Name: NIKOLE BANERJEE : 1970 Sex: F Age: Race: NA Pt. Location: 84 Patient Status: O Ordered Date: 08/02/2021 11:25:00 AM Completed Date: 08/02/2021 11:36 AM Requesting Provider: JOVANNI YOU Attending Provider: JOVANNI YOU Report Copy To: Signs & Symptoms: M25.562 Pain in left knee I10 History: [place] Comments: Evaluate Exam: KNEE LEFT 3 [facility] KNEE LEFT 3 [facility] 08/02/2021 11:36 AM CLINICAL INDICATIONS: M25.562 Pain in left knee I10 TECHNOLOGIST COMMENTS: Patient states left knee pain for years. History of fall in 2017. QUESTION FOR THE RADIOLOGIST: Evaluate PROTOCOL: AP,Lateral and Tangential views were obtained. COMPARISON: None FINDINGS: Osteoarthritic changes are present most significant medially where there is joint space loss and osteophytes. No joint effusion is seen. No evidence of fracture. IMPRESSION: Medial predominant osteoarthritis. Electronically signed: Jaren Hay. Transcribed by: [email or web address], User Resident: Electronically Signed by: JAREN HAY @ 08/02/2021 11:48 AM Normal [facility] Comment on above: Order Comment: Evalu ate Coding Summary.on 01-04-2020 Coding Summary. CODING DATE: 020 FINAL [facility] STATUS: Home (Routine DC) PAYOR: Medicaid ADMIT DX: REASON FOR VISIT DX: J32.4 Chronic pansinusitis FINAL DX: PRINCIPAL: J32.4 Chronic pansinusitis SECONDARY: PYMT PROC APC STAT DESCRIPTION DOCTOR NAME DATE NOTE: The code number assigned matches the documented diagnosis and / or procedure in the patient's chart. However, the narrative phrase printed from the coding software may appear abbreviated, or result in slightly different terminology. Coded By: Judy Duff CphT Date Saved: 01/04/2020 10:19 am Normal [facility] CT Maxillofacial w/o Contras ton 01-03-2020 CT Maxillofacial w/o Contrast Exam Date/Time: 01/01/2020 16:08 EST Reason for Exam: CHRONIC SINUSITIS Report IMPRESSION: MILD INFUNDIBULAR NARROWING BILATERALLY. EXAM: CT Maxillofacial w/o Contrast CLINICAL HISTORY: Headache CHRONIC SINUSITIS COMPARISON: NONE. TECHNIQUE: Unenhanced images were obtained through the paranasal sinuses in the axial plane with coronal and sagittal reformats. Scans obtained for surgical planning. FINDINGS: Maxillary sinuses:Minimal infundibular narrowing bilaterally otherwise maxillary sinuses are clear Ethmoid sinuses: Ethmoid sinuses are clear. Sphenoid sinuses: The sphenoid sinuses are normally aerated. Sphenoethmoid recesses are patent. Frontal sinuses: The frontal sinuses are normally aerated. Frontal recesses are patent. Nasal fossa: Mild gentle septal deviation anteriorly toward the left. All CT scans at this facility use dose modulation, iterative reconstruction, and/or weight based dosing when appropriate to reduce radiation dose to as low as reasonably achievable. FINAL REPORT Dictated: 01/03/2020 12:58 pm Martha Terry MD Signed (Electronic Signature): 01/03/2020 12:58 pm Signed by: Martha Terry MD Transcribed by: RAVIN Technologist: EMILY Buckner [facility] ED Noteon 11-19-2017 HIM IP Note OR Product Safety Technician Normal [facility] ED Provider Noteon 8 HIM IP Note OR Product Safety Technician Normal [facility] XR ANKLE RIGHT STANDARDon XR ANKLE RIGHT STANDARD EXAMINATION:3 VIEWS OF THE RIGHT ANKLE11/19/2017 7:04 pmCOMPARISON:None.HISTORY:R prakash for exam:->fall, twisted ankle, pain to lateral mallelousFINDINGS:Mild cortical irregularity about the lateral malleolus. No dislocation.Normal alignment of the ankle mortise. No focal osseous lesion. Mild bonyspurring along the plantar aspect of the calcaneus. Mild soft tissueswelling about the ankle.IMPRESSION: Mild cortical irregularity of the lateral malleolus, possibility ofunderlying fracture not excluded. Consider further evaluation with CT asclinically warranted.Interpreted by:SINCERE Roseigned by:Sixto Zelaya MD11/19/17inal result Normal [facility] Outside Recordson 10-01-2017 Outside Records [id number] Normal [facility] ED Clinical Summaryon 2016 ED Clinical Summary [facility] ? Urgent [address] [place], [place] [id number] clinical SummaryPERSON INFORMATIONName: NIKOLE BANERJEE Age: 46 Years Sex: FEMALEDOB: [birth year] MRN: Acct#:Visit Reason: work physical; PRE EMPLOYMENT FOR [employer] Arrival:09/26/17 15:48:28 Discharge: 09/26/17 16:30:00LOS: 000 00:42 Check In: 09/26/17 15:48:28 Checkout: 09/26/17 16:30:00Address:[address] [place] [id number]: Provider, NonePROVIDER INFORMATIONProvider Role Assigned UnassignedYO PEREZ H ED PA 09/26/17 15:52:07Carolyn Saab ED Nurse 09/26/17 15:54:15VITALS INFORMATIONVital Sign Triage LatestTemperature TympanicTemperature Temporal ArteryPulse Rate 60 bpm 60 bpmO2 Sat 98 % 98 %Respiratory Rate 18 br/min 18 br/minBlood Pressure 108 mmHg/72 mmHg 108 mmHg/72 mmHgMEDICAL INFORMATIONMedications Given:Allergy Information:LatexPHYSICIAN DOCUMENTATIONPatient: NIKOLE BANERJEE : 46 years Sex: FEMALE : 70Associated Diagnoses: Physical examAuthor: YO PEREZ [id number] female presenting to urgent care with complaint of needing a work physical. 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 She states that she will be working with any In-home healthcare. She states she currently does this position with another [employer] this is a second job. She does admit to being a smoker.Health StatusAllergies:No active allergies have been recorded.ObjectiveCONST: -Well-developed well-nourished. -Acute distress: No -Vitals: reviewed.SKIN: -Gross abnormalities: NoEYES: -EOM intact, FABBY: -Sclera conjunctiva: Unremarkable.ENT: - pharynx pink and moist.NECK: -Supple ([id number]): non-tender.CARD: -Rate and rhythm: Regular -Edema: No -Calf pain: NoRESP: -Respiratory effort and chest excursion with respirations: Normal -Breath sounds equal bilaterally: Clear -Wheezes: Mild expiratory wheeze -Rales: NoBACK: -Signs of pain with movement: NoABD: -Distended: No -Bruits: No -Bowel sounds: Normal. -Deep palpation: Non-tender, soft, no guarding or rebound tenderness.EXT: Gross appearance and use of all four extremities: UnremarkableNEURO: -Patient: alert -Gross CN or Focal Neuro deficits: No -Oriented to: person, place and time. -Appearance and judgment: appropriate.Impression and PlanAssessment and Plan: Diagnosis: Physical exam ([id number] Z00.00).46-year-old female present to urgent care for physical exam for work. Patient does admit to having possible history of heart murmur. I indicated to hear heart murmur today. I indicated to the patient that she should follow up primary care provider as needed at this time I do not see any reason why she cannot work. Patient is stable and will be discharged.DISCHARGE INFORMATION:Discharge Disposition: HomeDischarge Location: HomePATIENT EDUCATION INFORMATIONInstructions:Fol low-Up:DIAGNOSIS:Physical examComment: Normal [facility] ED Note - Physicianon 2016 ED Note - Physician Patient: NIKOLE BANERJEE : 46 years Sex: FEMALE : 70Associated Diagnoses: Physical examAuthor: YO PEREZ [id number] female presenting to urgent care with complaint of needing a work physical. 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 She states that she will be working with any In-home healthcare. She states she currently does this position with another [employer] this is a second job. She does admit to being a smoker.Health StatusAllergies:No active allergies have been recorded.ObjectiveCONST: -Well-developed well-nourished. -Acute distress: No -Vitals: reviewed.SKIN: -Gross abnormalities: NoEYES: -EOM intact, FABBY: -Sclera conjunctiva: Unremarkable.ENT: - pharynx pink and moist.NECK: -Supple ([id number]-br-bzsgr): non-tender.CARD: -Rate and rhythm: Regular -Edema: No -Calf pain: NoRESP: -Respiratory effort and chest excursion with respirations: Normal -Breath sounds equal bilaterally: Clear -Wheezes: Mild expiratory wheeze -Rales: NoBACK: -Signs of pain with movement: NoABD: -Distended: No -Bruits: No -Bowel sounds: Normal. -Deep palpation: Non-tender, soft, no guarding or rebound tenderness.EXT: Gross appearance and use of all four extremities: UnremarkableNEURO: -Patient: alert -Gross CN or Focal Neuro deficits: No -Oriented to: person, place and time. -Appearance and judgment: appropriate.Impression and PlanAssessment and Plan: Diagnosis: Physical exam ([id number] Z00.00).46-year-old female present to urgent care for physical exam for work. Patient does admit to having possible history of heart murmur. I indicated to hear heart murmur today. I indicated to the patient that she should follow up primary care provider as needed at this time I do not see any reason why she cannot work. Patient is stable and will be discharged.[Electronically Signed on: 09/26/2017 16:32 EST] YO PEREZ[Verified on: 09/26/2017 16:32 EST] YO PEREZ Normal [facility] ED Patient Summaryon 017 ED Patient Summary [facility] ? [address]gent [id number] [place] [address] pATIENT DISCHARGE INSTRUCTIONSPatient InformationName: NIKOLE BANERJEE Age: 46 YearsDate of : [birth year]MRN: [id number] Visit: work physical; PRE EMPLOYMENT FOR ECIArrival Time: 09/26/17 15:48:28Phone: Primary Care Physician: Provider, NoneAttending Physician: YO PEREZ HComment:Patient EducationMedication Information:The exam and treatment you received today in the [facility] Emergency Department were for an urgent problem and are not intended as complete care. It is important for you to follow up with a doctor, nurse practitioner, or physician?s executive chef assistant for ongoing care. If your symptoms become worse or you do not improve as expected and you are unable to reach your usual health care provider, you should return to the Emergency Department, we are available 24 hours a day.For those patients who have received Radiology results, the interpretation of your X-ray as given to you by our Emergency Department physician is only a preliminary report. The Radiologist will review your films and if there is a change in the diagnosis you will be notified by phone. Please make sure you have provided a working phone number so we can reach you if necessary.In the event that you had a lab culture while you were a patient in the Emergency Department, you will be notified by phone if there is a need to change your antibiotic. Please make sure you have provided a working phone number so we can reach you if necessary.[facility] Emergency Department has provided you with a complete list of medications post discharge. Please inform your primary care provider/provider of your visit and for further instruction on these medications. Any specific questions regarding your chronic medications and dosages should be discussed with your primary care physician(s) and/or pharmacist. Medications to Continue That Have Not ChangedOther Medicationsacetaminophen-hy drocodone (Holt 5 mg-325 mg oral tablet) 1 tab(s) Oral every 6 hours as needed as needed for pain.albuterol (albuterol 1.25 mg/3 mL (0.042%) inhalation solution) 3 Milliliter Nebulized inhalation 3 times a day.aspirin (aspirin 325 mg oral tablet) 1 tab(s) Oral every day.fluticasone (Flovent Diskus) Inhalation 2 times a day.fluticasone-salmeterol (Advair Diskus 100 mcg-50 mcg inhalation powder) 1 puff(s) Inhalation 2 times a day.furosemide (Lasix) every day as needed edema.montelukast (Singulair 10 mg oral tablet) 1 tab(s) Oral every day.Visit InformationVisit Diagnosis:Diagnoses This Visit Physical exam (Z00.00) work physicalIf you received any narcotics, sedation, or any other medication that causes drowsiness for the next 24 hours, unless otherwise directed:? Do not drive a car.? Do not operate machinery such as power tools, lawn mowers, drills, sewing machines, or stoves? Avoid alcoholic beverages and drugs for allergies, nerves, or sleep? Do not make important personal or business decisions or sign any legal documentsReason for Visit:here for work physicalAllergies:Substance Reaction Symptoms Type CommentsLatex HivesVital Signs: Vitals and Measurements this Visit (last charted value for your 09/26/2017 visit) Vital Signs This Visit Temperature Oral: 37.0 DegC Peripheral Pulse Rate: 60 bpm Respiratory Rate: 18 br/min Systolic Blood Pressure: 108 mmHg Diastolic Blood Pressure: 72 mmHg SpO2: 98 % O2 Flow: 0 L/min Measurements This Visit Height: 155 cm Weight: 105.0 kg Body Mass Index: 43.7 kg/[id number] List:Problem Onset CommentsAsthmaKidney stonesMurmur, cardiacThrombophlebitisMajo r Tests and Procedures:The following procedures and tests were performed during your ED visit.LaboratoryRadiologyCa rdiology Viruses or BacteriaWhat?s got you sick?Antibiotics only treat bacterial infections. Viral illnesses cannot be treated with antibiotics. When an antibiotic is not prescribed, ask your healthcare professional for tips on how to relieve symptoms and feel better. Usual CauseIllnessVirusesBacteria Antibiotic NeededCold/Runny Nose NOBronchitis/Chest Cold (in otherwise healthy children and adults) NOWhooping Cough YesFlu NOStrep Throat YesSore Throat (except strep) NOFluid in the middle ear (otitis media with effusion) NOUrinary Tract Infection YesAntibiotics Aren?t Always the Answerwww.cdc.gov/getsmart GET SMART Know When Antibiotics [place]. Department of Health and Human ServicesCenters for Disease Control and Prevention June 2014 [facility] Vital Signs Date Time Vital Sign Value Performing Clinician Elysia alanis 12-12-2023 11:57-0500 Diastolic blood pressure 74 mm[Hg] Jennifer Castro MD Work Phone: [facility] 12-12-2023 11:57-0500 Heart rate 72 /min Jennifer Castro MD Work Phone: [facility] 12-12-2023 11:57-0500 Systolic blood pressure 132 mm[Hg] Jennifer Castro MD Work Phone: [facility] 12-12-2023 11:55-0500 Body height 154.9 cm Jennifer Castro MD Work Phone: [facility] 12-12-2023 11:55-0500 Body mass index (BMI) [Ratio] 49.43 kg/m2 Jennifer Castro MD Work Phone: [facility] 12-12-2023 11:55-0500 Body weight 118.66 kg Jennifer Castro MD Work Phone: [facility] 12-12-2023 11:55-0500 Respiratory rate 18 /min Jennifer Castro MD Work Phone: [facility] 11-14-2023 14:05-0500 Heart rate 81 /min Re Mccarthy MD Work Phone: [facility] 11-14-2023 14:05-0500 Respiratory rate 16 /min Re Mccarthy MD Work Phone: [facility] 11-14-2023 07:51-0500 Body temperature 98.2 [degF] Re Mccarthy MD Work Phone: [facility] 11-14-2023 07:51-0500 Diastolic blood pressure 77 mm[Hg] Re Mccarthy MD Work Phone: [facility] 11-14-2023 07:51-0500 SaO2% (BldA) [Mass fraction] 95 % Re Mccarthy MD Work Phone: [facility] 11-14-2023 07:51-0500 Systolic blood pressure 138 mm[Hg] Re Mccarthy MD Work Phone: [facility] 11-14-2023 00:10-0500 Body mass index (BMI) [Ratio] 46.18 kg/m2 Re Mccarthy MD Work Phone: [facility] 11-14-2023 00:10-0500 Body weight 110.86 kg Re Mccarthy MD Work Phone: [facility] 11-08-2023 20:38-0500 Body height 154.9 cm Re Mccarthy MD Work Phone: [facility] 11-07-2023 14:12-0500 Diastolic blood pressure 76 mm[Hg] Jennifer Castro MD Work Phone: [facility] 11-07-2023 14:12-0500 Heart rate 86 /min Jennifer Castro MD Work Phone: [facility] 11-07-2023 14:12-0500 Systolic blood pressure 134 mm[Hg] Jennifer Castro MD Work Phone: [facility] 11-07-2023 14:11-0500 Body height 152.4 cm Jennifer Castro MD Work Phone: [facility] 11-07-2023 14:11-0500 Body mass index (BMI) [Ratio] 48.55 kg/m2 Jennifer Castro MD Work Phone: [facility] 11-07-2023 14:11-0500 Body weight 112.76 kg Jennifer Castro MD Work Phone: [facility] 11-07-2023 14:11-0500 Respiratory rate 18 /min Jennifer Castro MD Work Phone: [facility] Encounters Encounter Date Encounter Type Care Provider Facility Start: 07-27-2024 End: 07-27-2024 ambulatory [facility] Start: 07-24-2024 End: 07-24-2024 ambulatory HONG Goode CASTRO [facility] Start: 07-15-2024 End: 07-19-2024 Evaluation and management of inpatient [facility] Start: 07-14-2024 End: 07-19-2024 Evaluation and management of inpatient [facility] Start: 07-11-2024 End: 07-19-2024 Evaluation and management of inpatient RACHELMARYAMJASON Caty MCCARTHY [facility] Start: 07-09-2024 End: 07-19-2024 Evaluation and management of inpatient JONE MONTALVO [facility] Start: 07-08-2024 End: 07-19-2024 Evaluation and management of inpatient DEANA NICHOLS [facility] Start: 07-07-2024 End: 07-19-2024 Emergency department patient visit AMPARO ARTEAGA [facility] Start: 07-07-2024 End: 07-19-2024 Evaluation and management of inpatient DEANA NICHOLS [facility] Start: 07-03-2024 End: 07-03-2024 ambulatory [facility] Start: 07-01-2024 End: 07-01-2024 ambulatory SHAKIRA Farmer [facility] Start: 07-01-2024 End: 07-01-2024 ambulatory ROCAEL N [facility] Start: 06-24-2024 End: 06-24-2024 ambulatory SHAKIRA Farmer [facility] Start: 06-17-2024 End: 06-17-2024 Evaluation and management of inpatient SHAKIRA Caty [facility] Start: 06-17-2024 End: 06-17-2024 Evaluation and management of inpatient BO Mohsen [facility] Start: 06-17-2024 End: 06-17-2024 ambulatory BO Mohsen [facility] Start: 06-12-2024 End: 06-12-2024 ambulatory HONG CASTRO [facility] Start: 06-12-2024 End: 06-12-2024 ambulatory MARCUS AMADOR [facility] Start: 06-04-2024 End: 06-28-2024 ambulatory [facility] Miriam [facility] Start: 06-03-2024 End: 06-03-2024 [facility] Start: 06-03-2024 Encounter for other preprocedural examination [facility] Start: 05-20-2024 End: 05-20-2024 ambulatory ROCAEL N [facility] Start: 05-06-2024 End: 05-06-2024 ambulatory SHAKIRA Farmer [facility] Start: 05-04-2024 End: 05-04-2024 ambulatory [facility] Start: 05-04-2024 End: 05-04-2024 [facility] Start: 05-01-2024 End: 05-01-[address] [facility] Start: 04-28-2024 End: 04-28-2024 ambulatory BO SchumacherMohsen DAWSON [facility] Start: 04-06-2024 End: 04-06-[address] [facility] Start: 03-28-2024 End: 03-28-2024 ambulatory [facility] Start: 03-27-2024 End: 03-27-2024 ambulatory [facility] Start: 03-09-2024 End: 03-09-[address] [facility] Start: 03-07-2024 End: 03-07-2024 ambulatory [facility] Start: 03-06-2024 End: 03-06-2024 ambulatory [facility] Start: 03-05-2024 End: 03-05-2024 ambulatory [facility] Start: 02-19-2024 End: 02-19-2024 ambulatory ROCAEL GOETZ [facility] Start: 02-17-2024 End: 02-17-2024 ambulatory ERENDIRA BELTRÁN Not Available Start: 02-13-2024 End: 02-13-[address] [facility] Start: 01-27-2024 Gail Carmichael RN [facility] Start: 01-01-[address] [facility] Start: 12-25-[address] [facility] Start: 12-18-[address] [facility] Start: 12-12-2023 End: 12-12-2023 Orders Only [facility] Comment on above: Venous stasis dermat itis of both lower extremities (Primary Dx) Start: 12-12-2023 End: 12-12-2023 Office outpatient visit 25 minutes Jennifer Castro MD Work Phone: [facility] Comment on above: Acute respiratory fa ilure with hypoxia (CMS-HCC) (Primary Dx); Chronic obstructive pulmonary disease, unspecified COPD type (CMS-HCC); Venous stasis ulcer of right calf with fat layer exposed with varicose veins (CMS-HCC); Varicose veins of leg with swelling, bilateral; Varicose veins of bilateral lower extremities with pain Start: 11-27-2023 End: 11-27-2023 ambulatory ROCAEL Miriam GOETZ [facility] Start: 11-21-2023 Orders Only Carolina Ayala LPN [facility] Comment on above: Varicose veins of le g with swelling, bilateral (Primary Dx); Varicose veins of bilateral lower extremities with pain Start: 11-20-2023 Orders Only Naheed Gamboa LPN [facility] Comment on above: Varicose veins of le g with swelling, bilateral (Primary Dx); Varicose veins of bilateral lower extremities with pain Start: 11-19-2023 Orders Only Carolina Ayala LPN [facility] Comment on above: 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 (Primary Dx); Varicose veins of leg with swelling, bilateral Start: 11-11-2023 End: 11-15-2023 Evaluation and management of inpatient JONE MONTALVO [facility] Start: 11-08-2023 End: 11-15-2023 Emergency department patient visit FRANKLINJAIME GREEN [facility] Start: 11-08-2023 End: 11-14-2023 Evaluation and management of inpatient Franklin Green DO Work Phone: [facility] Comment on above: Influenza A (Primary Dx); COPD exacerbation ([facility]-HCC); Hypoxia Start: 11-07-2023 End: 11-07-[address] [facility] Ammy [facility] Start: 11-07-2023 End: 11-07-2023 Office outpatient visit 25 minutes Jennifer Castro MD Work Phone: [facility] Comment on above: 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 Start: 10-18-2023 End: 10-18-2023 Evaluation and management of inpatient JOHANNE ROYAL [facility] Start: 10-17-2023 End: 10-18-2023 Evaluation and management of inpatient BO BECERRA [facility] Start: 09-13-[address] [facility] Start: 03-12-2023 End: 03-13-[address] JENNIFER CASTRO Facility: Start: 02-12-2023 End: 02-12-2023 ambulatory ERENDIRA BELTRÁN Facility: Start: 07-27-2022 End: 07-28-2022 ambulatory ERENDIRAWilfredo BELTRÁN Facility: Start: 09-27-2021 End: 09-28-2021 ambulatory JOVANNI YOU Facility:[facility] Start: 02-16-2018 End: 02-16-2018 Ambulatory None Provider Facility:[facility] Start: 02-14-2018 End: 02-14-2018 Ambulatory None Provider Facility:[facility] Start: 11-19-2017 End: 11-19-2017 Emergency department patient visit BO GIMENEZ [facility] Start: 09-26-2017 End: 09-26-2017 Ambulatory YO HUSSEIN Facility:[facility] Procedures Date Procedure Procedure Detail Performing Clinician Start: 05-04-2024 Follow-up visit Follow-up BO DAWSON Start: 03-09-2024 Follow-up visit Follow-up JENNIFER ELY Start: 11-14-2023 Gluc bld gluc mntr d ev cleared fda spec home use Elías Gupta MD Work Phone: Start: 11-14-2023 Gluc bld gluc mntr d ev cleared fda spec home use Elías Gupta MD Work Phone: Start: 11-14-2023 Gluc bld gluc mntr d ev cleared fda spec home use Elías Gupta MD Work Phone: Start: 11-14-2023 Comprehensive metabolic panel Marga Nix [employer] Work Phone: Start: 11-13-2023 Gluc bld gluc mntr d ev cleared fda spec home use Elías Gupta MD Work Phone: Start: 11-13-2023 Gluc bld gluc mntr d ev cleared fda spec home use Elías Gupta MD Work Phone: Start: 11-13-2023 BRONCHOPULMONARY HYGIENE Marga Nix [employer]ORSH[employer] MANAGER[employer] Work Phone: Start: 11-13-2023 Gluc bld gluc mntr d ev cleared fda spec home use Elías Gupta MD Work Phone: Start: 11-13-2023 BRONCHOPULMONARY HYGIENE Marga Nix [employer]ONSORSHIP MANAGER[employer] Work Phone: Start: 11-13-2023 HOME O2 EVALUATION Jone Montalvo [employer]ONSORSHIP MANAGER[employer] Work Phone: Start: 11-13-2023 RESP/PULM RESULTS RE PORT (SCANNED INTO EHR) Not In System Ref Prov Start: 11-13-2023 Gluc bld gluc mntr d ev cleared fda spec home use Elías Gupta MD Work Phone: Start: 11-13-2023 BRONCHOPULMONARY HYGIENE Marga Nix [employer]ONSORSHIP MANAGER[employer] Work Phone: Start: 11-13-2023 Comprehensive metabolic panel Marga Nix [employer]ORSHIP MANAGER[employer] Work Phone: Start: 11-12-2023 Gluc bld gluc mntr d ev cleared fda spec home use Elías Gupta MD Work Phone: Start: 11-12-2023 Cul bact xcpt urine blood/stool aerobic isol Jone Montalvo [employer]ORSH[employer] MANAGER[employer] Work Phone: Start: 11-12-2023 Gluc bld gluc mntr d ev cleared fda spec home use Elías Gupta MD Work Phone: Start: 11-12-2023 BRONCHOPULMONARY HYGIENE Marga A Dinah [employer]ORSH[employer] MANAGER[employer] Work Phone: Start: 11-12-2023 BRONCHOPULMONARY HYGIENE Marga A Dinah [employer]SH[employer] MANAGER[employer] Work Phone: Start: 11-12-2023 Gluc bld gluc mntr d ev cleared fda spec home use Elías Gupta MD Work Phone: Start: 11-12-2023 Gluc bld gluc mntr d ev cleared fda spec home use Elías Gupta MD Work Phone: Start: 11-12-2023 BRONCHOPULMONARY HYGIENE Marga A Dinah [employer]ORSH[employer] MANAGER[employer] Work Phone: Start: 11-12-2023 Comprehensive metabolic panel Marga A Dinah [employer]OR[employer] MANAGER[employer] Work Phone: Start: 11-11-2023 Gluc bld gluc mntr d ev cleared fda spec home use Elías Gupta MD Work Phone: Start: 11-11-2023 Radiologic exam chest 2 views Jone Montalvo [employer] MANA[employer] Work Phone: Start: 11-11-2023 Gluc bld gluc mntr d ev cleared fda spec home use Elías Gupta MD Work Phone: Start: 11-11-2023 BRONCHOPULMONARY HYGIENE Marga A Dinah [employer] MANAGER[employer] Work Phone: Start: 11-11-2023 Gluc bld gluc mntr d ev cleared fda spec home use Elías Gupta MD Work Phone: Start: 11-11-2023 BRONCHOPULMONARY HYGIENE Marga A Dinah [employer]SH[employer] MANAGER[employer] Work Phone: Start: 11-11-2023 BRONCHOPULMONARY HYGIENE Marga A Dinah [employer] MANAGER[employer] Work Phone: Start: 11-11-2023 Gluc bld gluc mntr d ev cleared fda spec home use Elías Gupta MD Work Phone: Start: 11-11-2023 Comprehensive metabolic panel Marga Nix [employer]ORSH[employer] MANAGER[employer] Work Phone: Start: 11-10-2023 Gluc bld gluc mntr d ev cleared fda spec home use Elías Gupta MD Work Phone: Start: 11-10-2023 Gluc bld gluc mntr d ev cleared fda spec home use Elías Gupta MD Work Phone: Start: 11-10-2023 Gluc bld gluc mntr d ev cleared fda spec home use Elías Gupta MD Work Phone: Start: 11-10-2023 Comprehensive metabolic panel Marga Nix [employer]ORSH[employer] MANAGER[employer] Work Phone: Start: 11-10-2023 BRONCHOPULMONARY HYGIENE Marga Nix [employer]OR[employer] MANAGER[employer] Work Phone: Start: 11-10-2023 BRONCHOPULMONARY HYGIENE Marga Nix [employer]ORSHIP MANAGER[employer] Work Phone: Start: 11-09-2023 Gluc bld gluc mntr d ev cleared fda spec home use Elías Gupta MD Work Phone: Start: 11-09-2023 NOCTURNAL OXIMETRY STUDY Elías Gutpa MD Work Phone: Start: 11-09-2023 BRONCHOPULMONARY HYGIENE Marga Nix [employer]ORSH[employer] MANAGER[employer] Work Phone: Start: 11-09-2023 Gluc bld gluc mntr d ev cleared fda spec home use Elías Gupta MD Work Phone: Start: 11-09-2023 BRONCHOPULMONARY HYGIENE Marga Nix [employer]ORSHIP MANAGER[employer] Work Phone: Start: 11-09-2023 End: 11-09-2023 Comprehensive metabolic panel Marga bush [employer]ORSHIP MANAGER[employer] Work Phone: Start: 11-09-2023 BRONCHOPULMONARY HYGIENE Marga Nix [employer]ORSHIP MANAGER[employer] Work Phone: Start: 11-09-2023 BRONCHOPULMONARY HYGIENE Marga Nix [employer]ORSH[employer] MANAGER[employer] Work Phone: Start: 11-08-2023 Gluc bld gluc mntr d ev cleared fda spec home use Elías Gupta MD Work Phone: Start: 11-08-2023 PULSE OXIMETRY, SPOT Sh arleth Nix SPONSORSHIP MANAGER-BOUNTY TRAPPER Work Phone: Start: 11-08-2023 BRONCHOPULMONARY HYGIENE Marga Nix SPONSORSHIP MANAGER-BOUNTY TRAPPER Work Phone: Start: 11-08-2023 Radiologic exam ches t single view Franklin Ruggiero [facility]aris Phone: Start: 11-08-2023 SARS/FLU A+B/RSV BY NAAT/MOLECULAR (M4RT COLLECTION TUBE) Franklin Ruggiero Alaris Phone: Start: 11-08-2023 Comprehensive metabolic panel Franklin Ruggiero [facility]aris Phone: Start: 11-08-2023 Ecg routine ecg w/le ast 12 lds trcg only w/o i&r Franklin Ruggiero Alaris Phone: Start: 10-17-2023 Colonoscopy Carolina Cla wson TECHNICAL SALES ADVISOR Start: 11-19-2017 AIR SIDDHARTH CHAVEZ Start: 11-19-2017 CRUTCLARISSA CHAVEZ Start: 11-19-2017 Radex ankle complete minimum 3 views BO GIMENEZ Plan of Treatment Date Care Activity Detail Author Start: 10-17-2033 Screening for malignant neoplasm of colon Colonoscopy [facility] Start: 12-12-2024 Adult BMI Screening Adult BMI Screening [facility] Start: 11-27-2024 Tobacco Screening Tobacco Screening [facility] Start: 11-14-2024 Adult BMI Screening Adult BMI Screening [facility] Start: 11-09-2024 Tobacco Counseling Tobacco Counseling [facility] Start: 11-08-2024 Tobacco Screening Tobacco Screening [facility] Start: 06-28-2024 Influenza vaccination Influenza Vaccine [facility] Start: 05-06-2024 End: 05-06-2024 Patient encounter procedure 05/06/2024 2:20 PM EDT Office Visit [facility] [address] [place] [address] Shakira Rogers MD [address] [place] [address] [facility] Start: 05-04-2024 End: 05-04-2024 Patient encounter procedure 05/04/2024 2:15 PM EDT Office Visit [facility] [address] [place] [address] [facility] [place] [phone] Bo Dawson MD [address] [place] [address] [facility] Start: 02-19-2024 End: 02-19-2024 Patient encounter procedure 02/19/2024 2:00 PM EDT Office Visit [facility] [address] [place] [id number] Rocael Goetz, PA-C [address] [facility], [address] [place] [address] [facility] Start: 02-13-2024 End: 02-13-2024 Patient encounter procedure 02/13/2024 10:20 AM EDT Office Visit [facility] [address] [place] [address] Jennifer Castro MD [address] [address] [facility] Start: 02-06-2024 End: 02-06-2024 Patient encounter procedure 02/06/2024 11:00 AM EDT Office Visit [facility] [address] [place] [address] Jennifer Castro MD [address], [address] [address] [facility] Start: 11-27-2023 End: 11-27-2023 Patient encounter procedure 11/27/2023 2:00 PM EST Office Visit [facility] [address] [place] [id number] Rocael Goetz PAAlessiaC [address] [place] [address] [facility] Start: 06-28-2023 COVID-19 Vaccine ( season) COVID-19 Vaccine ( season) [facility] Start: 12-01-2022 DTaP,Tdap and Td Vaccines (2 - Td or Tdap) DTaP,Tdap and Td Vaccines (2 - Td or Tdap) [facility] Start: 2020 Administration of varicella zoster vaccine Zoster (Shingles) Vaccine (1 of 2) [facility] Start: 1991 Screening for malignant neoplasm of cervix Pap Smear [facility] Start: 1988 Adult BMI Follow Up Plan Adult BMI Follow Up Plan [facility] Start: 1982 Depression Screening Depression Screening [facility] Bacteria identified in Sputum by Respiratory culture Lower resp/sputum culture inc gram stain: Patient acquired Microbiology Routine 11/12/2023 7:10 PM EST KRISTIE HARDINGO Work Phone: RESP/PULM RESULTS RE PORT (SCANNED INTO EHR) RESP/PULM RESULTS REPORT (SCANNED INTO EHR) Procedures 11/13/2023 8:43 AM EST [facility] Immunizations Immunization Date Immunization Notes Care Provider Fa cility 08-12-2023 influenza virus vacc ine, unspecified formulation [facility] Payers Date Payer Category Payer Medicare AETNA MEDICARE A ETNA MEDICARE PLAN (HMO) [id number] 2023-Present [phone] [address] [place] [address] [id number] 2023 Private Health Insurance 101 [id number] 2023 [place] EDICAID [id number] 2023-Present [phone] [address] [place] [address] [id number] 2020 Worker's Compensation [id number] 2017 Unknown [employer] C[employer] RKS [id number] 2017-Present [phone] [address] [place] [address] [id number] 2017 Unknown [id number] 1970 Unknown [id number] 2.16.840.1.196591.3.579.2. 647 1970 Unknown [id number] 2.16.840.1.293440.3.579.2. 593 1970 Unknown [id number] 2.16.840.1.454762.3.579.2. 593 1970 Unknown [id number] 2.16.840.1.157482.3.579.2. 593 1970 Unknown [id number] 2.16.840.1.822604.3.579.2. 1259 1970 Unknown [id number] 2.16.840.1.276245.3.579.2. 1286 1970 Unknown [id number] 2.16.840.1.507108.3.579.2. 1285 1970 Unknown [id number] 2.16.840.1.612075.3.579.2. 1285 1970 Unknown [id number] 2.16.840.1.704634.3.579.2. 1285 1970 Unknown [id number] 2.16.840.1.880440.3.579.2. 1285 1970 Unknown [id number] 2.16.840.1.979392.3.579.2. 1285 1970 Unknown [id number] 2.16.840.1.931571.3.579.2. 1285 1970 Unknown [id number] 2.16.840.1.899693.3.579.2. 1285 1970 Unknown [id number] 2.16.840.1.969262.3.579.2. 1285 1970 Unknown [id number] 2.16.840.1.746543.3.579.2. 1285 1970 Unknown [id number] 2.16.840.1.617854.3.579.2. 1285 1970 Unknown [id number] 2.16.840.1.590002.3.579.2. 1285 1970 Unknown [id number] 2.16.840.1.999456.3.579.2. 1285 1970 Unknown [id number] 2.16.840.1.184727.3.579.2. 1285 1970 Unknown [id number] 2.16.840.1.814161.3.579.2. 1285 1970 Unknown [id number] 2.16.840.1.753840.3.579.2. 1285 1970 Unknown [id number] 2.16.840.1.369665.3.579.2. 1285 1970 Unknown [id number] 2.16.840.1.784925.3.579.2. 1285 1970 Unknown [id number] 2.16.840.1.426172.3.579.2. 1285 1970 Unknown [id number] 2.16.840.1.390039.3.579.2. 1285 1970 Unknown [id number] 2.16.840.1.553919.3.579.2. 1285 1970 Unknown [id number] 2.16.840.1.800423.3.579.2. 1285 1970 Unknown [id number] 2.16.840.1.889932.3.579.2. 1285 1970 Unknown [id number] 2.16.840.1.719132.3.579.2. 1285 1970 Unknown [id number] 2.16.840.1.600258.3.579.2. 1285 1970 Unknown [id number] 2.16.840.1.807405.3.579.2. 1285 1970 Unknown [id number] 2.16.840.1.131635.3.579.2. 1285 1970 Unknown [id number] 2.16.840.1.164803.3.579.2. 1285 1970 Unknown [id number] 2.16.840.1.595782.3.579.2. 1285 1970 Unknown [id number] 2.16.840.1.202828.3.579.2. 1285 1970 Unknown [id number] 2.16.840.1.027238.3.579.2. 1285 1970 Unknown [id number] 2.16.840.1.394346.3.579.2. 1285 1970 Unknown [id number] 2.16.840.1.720209.3.579.2. 1285 1970 Unknown [id number] 2.16.840.1.314433.3.579.2. 1285 1970 Unknown [id number] 2.16.840.1.467209.3.579.2. 1285 1970 Unknown [id number] 2.16.840.1.742559.3.579.2. 1285 1970 Unknown [id number] 2.16.840.1.120466.3.579.2. 1285 1970 Unknown [id number] 2.16.840.1.663655.3.579.2. 1285 1970 Unknown [id number] 2.16.840.1.679113.3.579.2. 1285 1970 Unknown [id number] 2.16.840.1.028748.3.579.2. 1285 1970 Unknown [id number] 2.16.840.1.738292.3.579.2. 1285 1970 Unknown [id number] 2.16.840.1.380072.3.579.2. 1285 1970 Unknown [id number] 2.16.840.1.786255.3.579.2. 1285 1970 Unknown [id number] 2.16.840.1.524805.3.579.2. 1285 1970 Unknown [id number] 2.16.840.1.279624.3.579.2. 1285 1970 Unknown [id number] 2.16.840.1.360301.3.579.2. 1285 1970 Unknown [id number] 2.16.840.1.105168.3.579.2. 1285 1970 Unknown [id number] 2.16.840.1.838523.3.579.2. 1285 1970 Unknown [id number] 2.16.840.1.619611.3.579.2. 1286 1970 Unknown [id number] 2.16.840.1.388812.3.579.2. 6 1970 Unknown [id number] 2.16.840.1.044990.3.579.2. 1286 1970 Unknown [id number] 2.16.840.1.952589.3.579.2. 1285 1970 Unknown [id number] 2.16.840.1.985274.3.579.2. 1286 1970 Unknown [id number] 2.16.840.1.427108.3.579.2. 6 1970 Unknown [id number] 2.16.840.1.169455.3.579.2. 6 1970 Unknown [id number] 2.16.840.1.159085.3.579.2. 1286 1970 Unknown [id number] 2.16.840.1.650108.3.579.2. 1286 1970 Unknown [id number] 2.16.840.1.457265.3.579.2. 1286 1970 Unknown [id number] 2.16.840.1.559305.3.579.2. 1286 1959 Medicaid [id number] Social History Date Type Detail Facility Start: 06-11-2023 [facility] History of tobacco use Cigarette Smoker [facility] Start: 11-10-2020 End: 06-11-2023 Cigarettes smoked current (pack per day) - Reported 1 [facility] History of tobacco use Passive smoker [facility] Start: 06-11-2023 Tobacco use and exposure Smoke less tobacco non-user [facility] Start: 11-08-2023 End: 11-27-2023 Alcohol intake Current non-drinker of alcohol (finding) [facility] Start: 11-10-2020 End: 11-08-2023 Tobacco use panel [facility] Start: 11-07-2022 Tobacco Comment not interested in quitting [facility] Start: 1970 Sex Assigned At Not on file [place] [facility] Goals Date Patient Goal Desired Activity /State Personal health goal Comment on above: Formatting of this n ote might be different from the original. Evaluation of progress towards goal: DC to home today Clinical Notes 09-13-2023 to 07-03-2024 Telephone Encounter - Candace Carmichael RN - 01/27/2024 11:49 AM EDTTelephone Encounter - Candace Carmichael RN - 01/27/2024 11:49 AM Brandon Castro MD - 12/12/2023 11:40 AM EST Note Date & Type Note Facility 07-03-2024 Note Patient ID: Nikole Banerjee is a 53 y.o. female with left knee pain secondary to arthritis. Here for approved round of Supartz injections as last round worked very well for 4-5 months. Large Joint: L knee on 07/03/2024 10:34 AM Indications: pain Details: 21 G needle, anterolateral approach Medications: 25 mg sodium hyaluronate (Supartz FX) 10 mg/mL; 4 mL lidocaine HCl 10 mg/mL (1 %) Outcome: tolerated well, no immediate complications Return to clinic in 1 week for 2/3 supartz injection. Paul Hinkle MD Orthopaedic Surgery, Resident PGY-1 07/03/24 10:37 AM By using the attestations below, the signing clinician agrees that I have read and verify that the documentation has been personally reviewed by me and ensure that the documentation accurately reflects the encounter. GC: I personally saw this patient on the day of the encounter, performed the mendoza portion(s) of the service and participated in the management and confirm the resident's documentation. Please note there may be an additional personal documentation from me. [facility] 01-27-2024 Miscellaneous Notes Last Office Visit: 11/27/2023 Next Office Visit: 02/19/2024 Last Urine Drug Screen: No results found for: BENZOSCRN OARRS appropriate documented in this encounter [facility] 01-27-2024 Telephone encounter Note Last Office Visit: 11/27/2023 Next Office Visit: 02/19/2024 Last Urine Drug Screen: No results found for: BENZOSCRN OARRS appropriate [facility] 01-01-2024 Note Subjective Chief complaint: No chief complaint on file. 01/01/24 Nikole Banerjee is a 53 y.o. year old female presenting for evaluation of L knee arthritis. Scheduled for 12/28 supartz today. Denies numbness, tingling, and weakness. ROS: Denies fevers, chills, and other constitutional symptoms. Denies shortness of breath. Patient History No past surgical history on file. No past medical history on file. Objective General: There is no height or weight on file to calculate BMI. There were no vitals filed for this visit. No acute distress, comfortable Respiratory: Unlabored breathing with normal rate, no cough Cardiovascular: Warm well perfused extremities Psych: Appropriate mood behavior Left knee: ROM 120- 0 Medial lateral joint line pain SILT, BCR Assessment/Plan Nikole Banerjee is a 53 y.o. year old female with Arthritis of left knee Patient ID: Nikole Banerjee is a 53 y.o. female. Large Joint: L knee on 01/01/2024 10:20 AM Indications: pain Details: 21 G needle, anterolateral approach Medications: 40 mg lidocaine HCl 10 mg/mL (1 %); 25 mg sodium hyaluronate (Supartz FX) 10 mg/mL Outcome: tolerated well, no immediate complications large joint injection. Procedure, treatment alternatives, risks and benefits explained, specific risks discussed. Consent was given by the patient. Immediately prior to procedure a time out was called to verify the correct patient, procedure, equipment, sales and support center agent and site/side marked as required. Patient was prepped and draped in the usual sterile fashion. I saw and evaluated the patient, participating in the mendoza portions of the service. I reviewed the resident???s note. I agree with the resident???s findings and plan. Carlie Brown MD -Return to clinic in 6 months Gonzales Kelley MD PGY-5 Orthopedic Surgery [facility] By using the attestations below, the signing clinician agrees that I have read and verify that the documentation has been personally reviewed by me and ensure that the documentation accurately reflects the encounter. GC: I personally saw this patient on the day of the encounter, performed the mendoza portion(s) of the service and participated in the management and confirm the resident's documentation. Please note there may be an additional personal documentation from me. [facility] 12-25-2023 Note Subjective Chief complaint: Chief Complaint Patient presents with Left Knee - Injections, Pain 2nd Supartz injection 12/25/23 Nikole Banerjee is a 53 y.o. year old female presenting for evaluation of L knee arthritis. Scheduled for 11/30 supartz today. Feels like she is already received benefit even after just the first injection last week Denies numbness, tingling, and weakness. ROS: Denies fevers, chills, and other constitutional symptoms. Denies shortness of breath. Patient History History reviewed. No pertinent surgical history. History reviewed. No pertinent past medical history. Objective General: Body mass index is 43.08 kg/m???. There were no vitals filed for this visit. No acute distress, comfortable Respiratory: Unlabored breathing with normal rate, no cough Cardiovascular: Warm well perfused extremities Psych: Appropriate mood behavior Left knee: ROM 120- 0 Medial lateral joint line pain SILT, BCR Assessment/Plan Nikole Banerjee is a 53 y.o. year old female with Arthritis of left knee Patient ID: Nikole Banerjee is a 53 y.o. female. Large Joint: L knee on 12/25/2023 10:26 AM Indications: pain Details: 21 G needle, anterolateral approach Medications: 4 mL lidocaine HCl 10 mg/mL (1 %); 25 mg sodium hyaluronate (Supartz FX) 10 mg/mL Outcome: tolerated well, no immediate complications Consent was given by the patient. -Return to clinic in 1 week for 3/3 krunalartz Gonzales Kelley MD PGY-5 Orthopedic Surgery [facility] By using the attestations below, the signing clinician agrees that I have read and verify that the documentation has been personally reviewed by me and ensure that the documentation accurately reflects the encounter. GC: I personally saw this patient on the day of the encounter, performed the mendoza portion(s) of the service and participated in the management and confirm the resident's documentation. Please note there may be an additional personal documentation from me. [facility] 12-18-2023 Note Subjective Chief complaint: Chief Complaint Patient presents with Left Knee - Edema, Pain, Injections BWC Lower leg is red and swollen a little warm to the tough, she has been seeing her vascular doctor, treatment w/steroid cream 12/18/23 Nikole Banerjee is a 53 y.o. year old female presenting for evaluation of L knee arthritis. Scheduled for 10/30 supartz today. Has helped w pain control in the past. Recently hospitalized w flu that interrupted supartz series. Denies numbness, tingling, and weakness. ROS: Denies fevers, chills, and other constitutional symptoms. Denies shortness of breath. Patient History History reviewed. No pertinent surgical history. History reviewed. No pertinent past medical history. Objective General: Body mass index is 43.08 kg/m???. There were no vitals filed for this visit. No acute distress, comfortable Respiratory: Unlabored breathing with normal rate, no cough Cardiovascular: Warm well perfused extremities Psych: Appropriate mood behavior Left knee: ROM 120- 0 Medial lateral joint line pain SILT, BCR Assessment/Plan Nikole Banerjee is a 53 y.o. year old female with Arthritis of left knee Patient ID: Nikole Banerjee is a 53 y.o. female. Large Joint: L knee on 12/18/2023 10:55 AM Indications: pain Details: 21 G needle, anterolateral approach Medications: 25 mg sodium hyaluronate 10 mg/mL; 4 mL lidocaine 10 mg/mL (1 %) Outcome: tolerated well, no immediate complications Procedure, treatment alternatives, risks and benefits explained, specific risks discussed. Consent was given by the patient. Immediately prior to procedure a time out was called to verify the correct patient, procedure, equipment, sales and support center agent and site/side marked as required. Patient was prepped and draped in the usual sterile fashion. -Return to clinic in 1 week for /3 krunalartz Gonzales Kelley MD PGY-5 Orthopedic Surgery [facility] By using the attestations below, the signing clinician agrees that I have read and verify that the documentation has been personally reviewed by me and ensure that the documentation accurately reflects the encounter. GC: I personally saw this patient on the day of the encounter, performed the mendoza portion(s) of the service and participated in the management and confirm the resident's documentation. Please note there may be an additional personal documentation from me. [facility] 12-12-2023 History of Present illness Narrative CHIEF COMPLAINT: Chief Complaint Patient presents with Follow-up Extremity Pain Leg Swelling Patient present with bilateral lower extremity itching, edema with redness noted to lower leg/feet. Pain is 6/10 intermittently. Symptoms 5 days now. Recent hospital stay for H1N1 and Pneumonia. HISTORY OF PRESENT ILLNESS: Nikole Banerjee is a 53 y.o. female who presents to the office today for evaluation of Bilateral lower extremity venous stasis dermatitis and venous insufficiency. Patient reports that her edema and redness in the lower extremities has gotten worse. Patient reports aching in the lower extremities and she describes it as intermittent and it is 6/10. Patient reports that these symptoms got worse about 5 days ago. Patient was in the hospital with the COVID and pneumonia. Patient otherwise has no new complaints. Patient is doing better now but the swelling is still there in both lower extremities. Patient does not wear any compression stockings. She tries to elevate her lower extremities. ALLERGIES: Allergies Allergen Reactions Gabapentin Swelling Facial, legs, feet swelling Gentamicin Rash Latex Hives MEDICATIONS: Current Outpatient Medications Medication Sig Dispense Refill acetaminophen (TYLENOL ARTHRITIS) 650 mg 8 hr tablet Take 1 tablet (650 mg total) by mouth every 8 (eight) hours as needed for pain. albuterol (PROVENTIL HFA;VENTOLIN HFA) 90 mcg/actuation inhaler Inhale 2 puffs every 6 (six) hours as needed for wheezing. 18 g 0 aspirin 325 mg EC tablet Take 1 tablet (325 mg total) by mouth in the morning. Circulation, high risk for blood clots. CALCIUM 600 + D,3, 600 mg(1,500mg) -400 unit per tablet Take 1 tablet by mouth in the morning. Indications: prevention of vitamin D deficiency. 3 DULoxetine (CYMBALTA) 60 mg capsule Take 1 capsule (60 mg total) by mouth in the morning. Indications: neuropathic pain. 30 capsule 3 loratadine (CLARITIN) 10 mg tablet Take 1 tablet (10 mg total) by mouth nightly Indications: inflammation of the nose due to an allergy. mometasone-formoterol (DULERA) 100-5 mcg/actuation inhaler Inhale 2 puffs in the morning and 2 puffs before bedtime. Indications: controller medication for asthma. montelukast (SINGULAIR) 10 mg tablet Take 1 tablet (10 mg total) by mouth nightly Indications: controller medication for asthma. omeprazole (PriLOSEC) 40 mg capsule Take 1 capsule (40 mg total) by mouth in the morning. Indications: gastroesophageal reflux disease. ondansetron (ZOFRAN) 4 mg tablet Take 1 tablet (4 mg total) by mouth every 6 (six) hours as needed for nausea or vomiting for up to 20 doses. 20 tablet 0 oxybutynin XL (DITROPAN-XL) 5 mg 24 hr tablet Take 1 tablet (5 mg total) by mouth in the morning. 90 tablet 3 therapeutic multivitamin (THERAGRAN) tablet Take 1 tablet by mouth in the morning. Indications: treatment to prevent vitamin deficiency. triamcinolone (KENALOG) 0.1 % ointment Apply 1 Application topically in the morning and 1 Application before bedtime. 30 g 0 No current facility-administered medications for this visit. Facility-Administered Medications Ordered in Other Visits Medication Dose Route Frequency Provider Last Rate Last Admin triamcinolone (KENALOG) 0.1 % cream 1 Application 1 Application topical PRN Jennifer Castro MD 1 Application at 09/03/23 6196 SOCIAL HISTORY: Social History Tobacco Use Smoking status: Every Day Packs/day: 1.00 Years: 36.00 Additional pack years: 0.00 Total pack years: 36.00 Types: Cigarettes Passive exposure: Past Smokeless tobacco: Never Tobacco comments: not interested in quitting Substance Use Topics Alcohol use: No REVIEW OF SYSTEMS: Review of Systems Constitutional: Positive for fatigue. Negative for activity change, appetite change, chills, fever and unexpected weight change. HENT: Negative for facial swelling and trouble swallowing. Eyes: Negative for visual disturbance. Respiratory: Negative for chest tightness and shortness of breath. Cardiovascular: Positive for leg swelling. Negative for chest pain. Gastrointestinal: Negative for abdominal pain. Genitourinary: Negative for flank pain and frequency. Musculoskeletal: Positive for arthralgias and back pain. Negative for joint swelling. Skin: Positive for color change. Negative for pallor, rash and wound. Neurological: Negative for dizziness, syncope, facial asymmetry, speech difficulty, weakness, light-headedness and numbness. Hematological: Negative for adenopathy. PHYSICAL EXAM: Physical Exam Vitals reviewed. Constitutional: General: She is not in acute distress. Neck: Vascular: No JVD. Cardiovascular: Rate and Rhythm: Normal rate. Pulses: Radial pulses are 2+ on the right side and 2+ on the left side. Dorsalis pedis pulses are 2+ on the right side and 2+ on the left side. Posterior tibial pulses are 2+ on the right side and 2+ on the left side. Heart sounds: No murmur heard. Comments: No carotid bruits. Pulmonary: Breath sounds: Normal breath sounds. Abdominal: Palpations: Abdomen is soft. There is no mass. Tenderness: There is no abdominal tenderness. Musculoskeletal: General: No tenderness. Cervical back: Neck supple. Right lower leg: Edema present. Left lower leg: Edema present. Feet: Right foot: Skin integrity: Erythema present. No ulcer. Left foot: Skin integrity: Erythema present. Skin: General: Skin is warm. Coloration: Skin is not pale. Findings: No erythema. Neurological: Mental Status: She is alert and oriented to person, place, and time. VASCULAR EXAM: Vascular: Right Lower Extremity Right lower extremity pulses DP: 2+ PT: 2+ Right lower extremity edema: 2+ and pitting Right Lower Extremity Skin Integrity: Positive for erythema. Negative for ulcer. Left Lower Extremity Left lower extremity pulses DP: 2+ PT: 2+ Left lower extremity edema: 2+ and pitting Left Lower Extremity Skin Integrity: Positive for erythema. Right Upper Extremity Right upper extremity pulses Radial: 2+ Left Upper Extremity Left upper extremity pulses Radial: 2+ ASSESSMENT AND PLAN: iNkole was seen today for follow-up, extremity pain and leg swelling. Diagnoses and all orders for this visit: Acute respiratory failure with hypoxia ([facility]) Chronic obstructive pulmonary disease, unspecified COPD type ([facility]) Venous stasis ulcer of right calf with fat layer exposed with varicose veins ([facility]) Varicose veins of leg with swelling, bilateral Varicose veins of bilateral lower extremities with pain Patient appears to have worsening venous insufficiency and swelling in the lower extremities after the episode of pneumonia and COVID. I advised her to elevate her legs more extensively and to wear compression stockings or Husam bandage. I will see her back in few weeks for follow-up. documented in this encounter [facility] 11-21-2023 History of Present illness Narrative A user error has taken place: encounter opened in error, closed for administrative reasons. documented in this encounter [facility] 11-21-2023 Miscellaneous Notes Addended by: CAMELIA EGAN on: 11/21/2023 12:42 PM Modules accepted: Orders documented in this encounter [facility] 11-21-2023 Note Addended by: CAMELIA JACOBS on: 11/21/2023 12:42 PM Modules accepted: Orders [facility] 11-19-2023 Miscellaneous Notes Left message on patients voicemail that script for knee high stockings per Dr. Castro was mailed out to her today. Along with list of pharmacys. Good afternoon. Patient called back stating that she is suppose to get the panty hose as the knee high was the one that causes the blood cloth. I will let Dr. Castro know and he can advise from there. Script was put in for knee high compression stockings per Dr. Castro. documented in this encounter [facility] 11-19-2023 Telephone encounter Note Left message on patients voicemail that script for knee high stockings per Dr. Castro was mailed out to her today. Along with list of pharmacys. [facility] 11-19-2023 Telephone encounter Note Good afternoon. Patient called back stating that she is suppose to get the panty hose as the knee high was the one that causes the blood cloth. [facility] 11-19-2023 Telephone encounter Note I will let Dr. Castro know and he can advise from there. Script was put in for knee high compression stockings per Dr. Castro. [facility] 11-14-2023 Nurse Note Pt discharge initiated with attending provider, Pt/Family communicated with and updated regarding process on discharge as needed.iv removed. Oxygen delivered. Dc paperwork reviewed [facility] 11-14-2023 Nurse Note Pt discharge initiated with attending provider, Pt/Family communicated with and updated regarding process on discharge as needed.iv removed. Oxygen delivered. Dc paperwork reviewed documented in this encounter [facility] 11-14-2023 History of Present illness Narrative 11/13/232026 Home Oxygen Qualification - Resting Method *Complete within 48 Hrs of Discharge SpO2 On Room Air At Rest 87 % (85-87%) Amount Of O2 Applied At Rest To Keep SpO2 >88% 1 L/min SpO2 On Applied O2 At Rest 92 % 11/14/23 1149 Home Oxygen Qualification - Exercise/Ambulation Method SpO2 On Room Air With Exercise/Ambulation 81 % Amount Of O2 Applied During Exercise/Ambulation To Keep SpO2 >88% 2 L/min SpO2 On Applied O2 With Exercise/Ambulation 89 % 11/14/23 1149 Home Oxygen Qualification - Exercise/Ambulation Method SpO2 On Room Air With Exercise/Ambulation 81 % Amount Of O2 Applied During Exercise/Ambulation To Keep SpO2 >88% 2 L/min SpO2 On Applied O2 With Exercise/Ambulation 89 % 11/13/232017 Vital Signs Pulse 74 Heart Rate Source Monitor Resp 22 SpO2 (!) 89 % O2 Device None (Room air) O2 Flow Rate (L/min) 0 L/min FiO2 (%) 21 % Patient Position [place] Respiratory Assessment Assessment Type Pre-treatment Level of Consciousness Alert Respiratory Pattern Regular;Shallow Chest Assessment Chest expansion symmetrical Bilateral Breath Sounds Diminished;Crackles/Rales Location Specific Yes Localized Breath Sounds R Upper Anterior Clear;Diminished R Upper Posterior Clear;Diminished R Mid Anterior Clear;Diminished R Mid Posterior Diminished;Crackles/rales R Lateral Clear;Diminished R Lower Anterior Clear;Diminished R Basilar (R Lower Posterior Base) Diminished;Crackles/rales L Upper Anterior Clear;Diminished L Upper Posterior Clear;Diminished L Lateral Clear;Diminished L Lower Anterior Clear;Diminished L Basilar (L Lower Posterior Base) Diminished;Crackles/rales Inhalation Therapy Delivery Source Oxygen Device Nebulizer Duration (Minutes) 10 Position High Mckeon's Images from the original note were not included. [facility] MD Freddie Vaughn MD Kaleem Gill, MD Sneha Kommoori, MD Ruqiyya Muhammad, MD Kanchan Pillai, MD Ravi Pothireddy, MD Jagruti Maria, MD Diana Huang, BOUNTY TRAPPER Jen Treasure, BOUNTY TRAPPER Prabha James, BOUNTY TRAPPER Ina Jordon, BOUNTY TRAPPER Chayo Alanna, BOUNTY TRAPPER Lakshmi Richardson, BOUNTY TRAPPER Mamta Toledo, BOUNTY TRAPPER Ceci Farhan, BOUNTY TRAPPER Jone Selvin, BOUNTY TRAPPER Nathalie Medinarange, BOUNTY TRAPPER Bábrara Kelle, BOUNTY TRAPPER Claudia Carin, BOUNTY TRAPPER Deana Magdalena, BOUNTY TRAPPER araseli Dandre, BOUNTY TRAPPER Marga Nix, BOUNTY TRAPPER Bárbara Rogers, BOUNTY TRAPPER Jessika Marin, BOUNTY TRAPPER Arthur Bower, [facility] Progress Note Patient: Nikole Banerjee Date of : 1970 Room: [facility]/ PCP: Angelica Flores PA-C Admission date: 11/08/2023 2:03 PM Encounter date: 11/13/23 SUBJECTIVE Chief complaints: Chief Complaint Patient presents with Shortness of Breath Interval History: Status: improved. No overnight events or new complaints. Decreased oxygen demand. Down to 1 L per nasal cannula. Sitting in bed. Patient states her breathing has dramatically improved over the last 2 days. Review of Systems Review of Systems Constitutional: Negative for activity change, appetite change, chills, fatigue and fever. HENT: Negative for nosebleeds, trouble swallowing and voice change. Eyes: Negative for itching. Respiratory: Positive for cough, shortness of breath and wheezing. Negative for chest tightness and stridor. Cardiovascular: Negative for chest pain and palpitations. Gastrointestinal: Negative for abdominal distention and abdominal pain. Endocrine: Negative for polyuria. Genitourinary: Negative for difficulty urinating and dysuria. Musculoskeletal: Negative for gait problem. Skin: Negative for color change. Allergic/Immunologic: Negative for immunocompromised state. Neurological: Negative for seizures and speech difficulty. Hematological: Negative for adenopathy. OBJECTIVE BP 138/73 Pulse 80 Temp 37.1 C (98.8 F) (Oral) Resp 18 Ht 154.9 cm (5' 1 ) Wt 112.4 kg (247 lb 11.2 oz) SpO2 94% BMI 46.80 kg/m Intake/Output Summary (Last 24 hours) at 11/13/2023 1154 Last data filed at 11/13/2023 0912 Gross per 24 hour Intake 1221.27 ml Output 1050 ml Net 171.27 ml Physical Exam Physical Exam Vitals reviewed. Constitutional: Appearance: She is well-developed. HENT: Head: Normocephalic and atraumatic. Right Ear: External ear normal. Left Ear: External ear normal. Nose: Nose normal. Mouth/Throat: Mouth: Mucous membranes are moist. Pharynx: Oropharynx is clear. Uvula midline. No oropharyngeal exudate. Eyes: General: Right eye: No discharge. Left eye: No discharge. Extraocular Movements: Extraocular movements intact. Pupils: Pupils are equal, round, and reactive to light. Neck: Thyroid: No thyromegaly. Trachea: No tracheal deviation. Cardiovascular: Rate and Rhythm: Normal rate and regular rhythm. Pulses: Normal pulses. Heart sounds: Normal heart sounds. Pulmonary: Effort: Pulmonary effort is normal. No respiratory distress. Breath sounds: No stridor. Wheezing (Scattered expiratory wheezing noted throughout lung shrestha.) present. Comments: Oxygen at 1 L per nasal cannula. O2 saturation 97%. Chest: Chest wall: No tenderness. Abdominal: General: Bowel sounds are normal. There is no distension. Palpations: Abdomen is soft. Tenderness: There is no abdominal tenderness. There is no guarding or rebound. Musculoskeletal: General: No tenderness or deformity. Normal range of motion. Cervical back: Normal range of motion and neck supple. Lymphadenopathy: Cervical: No cervical adenopathy. Upper Body: Right upper body: No supraclavicular or epitrochlear adenopathy. Left upper body: No supraclavicular or epitrochlear adenopathy. Skin: General: Skin is warm and dry. Capillary Refill: Capillary refill takes less than 2 seconds. Coloration: Skin is not cyanotic. Nails: There is no clubbing. Neurological: Mental Status: She is alert. Motor: No abnormal muscle tone or seizure activity. Coordination: Coordination normal. Psychiatric: Attention and Perception: Attention normal. Behavior: Behavior normal. Thought Content: Thought content normal. Judgment: Judgment normal. Medications Scheduled: aspirin, 325 mg, oral, Daily calcium carbonate-vitamin D3, 1 tablet, oral, Daily with breakfast cefTRIAXone (ROCEPHIN) IV, 1,000 mg, intravenous, Q24H doxycycline, 100 mg, oral, BID DULoxetine, 60 mg, oral, Daily enoxaparin (LOVENOX) injection, 40 mg, subcutaneous, Q12H insulin lispro, 2-10 Units, subcutaneous, TID with meals insulin lispro, 2-8 Units, subcutaneous, Nightly loratadine, 10 mg, oral, Nightly melatonin, 3 mg, oral, Nightly methylPREDNISolone sodium succinate, 40 mg, intravenous, Q12H MARIELA montelukast, 10 mg, oral, Nightly bjtrijye-dbex-PX-calcium &mins, 1 tablet, oral, Daily pantoprazole, 40 mg, oral, QAM AC sodium chloride, 3 mL, intravenous, Q12H MARIELA Infusions: dextrose 5 % in water, 100 mL/hr sodium chloride 0.9 %, 20 mL/hr As Needed: acetaminophen alum-mag hydroxide-simeth calcium gluconate calcium gluconate calcium gluconate dextrose dextrose 5 % in water dextrose 50 % in water (D50W) glucagon (human recombinant) levalbuterol magnesium sulfate magnesium sulfate ondansetron potassium chloride OR potassium chloride sennosides-docusate sodium sodium chloride sodium chloride sodium chloride 0.9 % Allergies: Gabapentin, Gentamicin, and Latex Labs Recent Results (from the past 24 hour(s)) Bedside Glucose *Place/Obtain serum glucose if >500(>600 MRH) per glucometer. Collection Time: 11/12/23 4:06 PM Result Value Ref Range Bedside glucose 137 (H) 65 - 99 mg/dL Bedside Glucose *Place/Obtain serum glucose if >500(>600 MRH) per glucometer. Collection Time: 11/12/23 9:25 PM Result Value Ref Range Bedside glucose 222 (H) 65 - 99 mg/dL Comprehensive metabolic panel Collection Time: 11/13/23 5:35 AM Result Value Ref Range Sodium 139 134 - 146 mmol/L Potassium, Bld 4.6 3.5 - 5.0 mmol/L Chloride 95 (L) 98 - 109 mmol/L CO2 32 22 - 32 mmol/L Anion gap 12 5 - 15 mmol/L BUN 20 5 - 23 mg/dL Creatinine 0.66 0.40 - 1.00 mg/dL Glucose 226 (H) 65 - 99 mg/dL Calcium 8.9 8.5 - 10.5 mg/dL Total Protein 7.1 6.0 - 8.0 g/dL Albumin 3.1 (L) 3.2 - 5.3 g/dL Alkaline Phosphatase 59 39 - 130 U/L AST 19 0 - 41 U/L ALT 24 0 - 31 U/L Total bilirubin 0.7 0.3 - 1.2 mg/dL eGFR (CKD-EPI)non-race dependent >90 >59 ml/min/1.73sq.m Magnesium Collection Time: 11/13/23 5:35 AM Result Value Ref Range Magnesium 2.0 1.8 - 2.6 mg/dL CBC auto differential Collection Time: 11/13/23 5:35 AM Result Value Ref Range White Blood Cells 12.4 (H) 4.0 - 11.0 X10E9/L RBC count 5.06 3.80 - 5.20 X10E12/L Hemoglobin 14.7 11.7 - 15.5 g/dL Hematocrit 45.8 35 - 47 % MCV 91 80 - 100 fL MCH 29.0 27 - 34 pg MCHC 32.0 32 - 36 g/dL RDW 15.8 (H) 11.5 - 15.0 % Platelets 215 150 - 450 X10E9/L MPV 9.0 7 - 12 fL % neutrophils 80.8 % % lymphocytes 11.7 % % monocytes 7.2 % % eosinophils 0.0 % % Basophils 0.3 % Neutrophils Absolute (A) 10.0 (H) 1.5 - 6.6 X10E9/L Lymphocytes Absolute 1.5 1.0 - 3.5 X10E9/L Monocytes Absolute 0.9 0 - 0.9 X10E9/L Eosinophils Absolute 0.0 0.0 - 0.4 X10E9/L Basophils Absolute 0.0 0.0 - 0.2 X10E9/L Procalcitonin Collection Time: 11/13/23 5:35 AM Result Value Ref Range Procalcitonin <0.05 <0.05 ng/mL Bedside Glucose *Place/Obtain serum glucose if >500(>600 MRH) per glucometer. Collection Time: 11/13/23 8:05 AM Result Value Ref Range Bedside glucose 139 (H) 65 - 99 mg/dL Radiology X-ray chest 1 view Result Date: 11/08/2023 Narrative: Procedure: Chest x-ray performed Number of views:AP portable History:Shortness of breath Comparison:09/11/2023 Findings: The heart and lungs show no acute findings, and the mediastinum and brandon are grossly negative . Impression: No acute change. Finalized by Christine Sweeney DO on 11/08/2023 2:44 PM Colonoscopy Report Result Date: 10/17/2023 Narrative: This order has been auto-finalized for image and report archival in PACs. *For full report details, please reach out to your physician. This image is visible to you in MyChart.* HOSPITAL PROBLEM LIST Principal Problem: Acute respiratory failure with hypoxia ([facility]) Active Problems: Urge incontinence of urine Influenza A COPD (chronic obstructive pulmonary disease) ([facility]) Hypokalemia ASSESSMENT & PLAN Acute respiratory failure with hypoxia: O2 as needed. Requiring 1 L per nasal cannula. No oxygen requirements at home. Wean as able. Decreased Solu-Medrol 40 mg q.12 hours. DuoNeb q.4 hours as needed. Attempt to wean oxygen throughout day today and overnight. Home O2 evaluation for tomorrow to see if patient needs oxygen on discharge. Repeat chest x-ray shows multifocal pneumonia. Secondary bacterial pneumonia of unknown origin. Leukocytosis improving today. Continue IV Rocephin and p.o. doxycycline. Sputum culture if able. Repeat procalcitonin. Influenza A: Completed 5 day course of Tamiflu. COPD: Acute exacerbation secondary to Flu A. Hypokalemia: Supplement. Monitor electrolytes daily replace per protocol. Monitor kidney function daily. DVT px: Lovenox. DC planning: Likely discharge home tomorrow. May need home O2. TY Beard, 11/13/2023 11:54 AM [facility] 7AM-7PM: Message rounding SIDNEY in [employer] or page through [employer]. 7PM-7AM: Page on-call SIDNEY through our answering service, . This note is dictated with the use of M*Modal. Please note that this dictation was completed with computer voice recognition software. Quite often unanticipated grammatical, syntax, homophones, and other interpretive errors are inadvertently transcribed by the computer software. Please disregard these errors. Please excuse any errors that have escaped final proofreading. TY Beard 11/13/23 1158 Physician Attestation: I have reviewed the above note authored by the Advance Practice Provider (SIDNEY) including history, review of systems, physical examination, medical decision making and agree with the assessment & plan. I have personally performed a face to face diagnostic evaluation on this patient. I have reviewed all laboratory findings and imaging reports/films. I have independently evaluated the patient and repeated mendoza portions of the physical exam. I agree with the SIDNEY plan as above, unless otherwise noted. Adm for viral PNA, complicated by bacterial superinfection, improving with Abx Plan for DC belen if continues to improve. RN to ambulate without O2 belen for Home assessment. RE MCCARTHY MD 11/12/231927 Vital Signs Pulse 79 Heart Rate Source Monitor Resp 22 SpO2 90 % O2 Device Nasal cannula O2 Flow Rate (L/min) 4 L/min Patient Position High-kirill Respiratory Assessment Assessment Type Pre-treatment Level of Consciousness Alert Respiratory Pattern Regular Chest Assessment Chest expansion symmetrical Bilateral Breath Sounds Expiratory wheezes;Coarse/Rhonchi R Breath Sounds Expiratory wheezes;Coarse/Rhonchi L Breath Sounds Expiratory wheezes;Coarse/Rhonchi Location Specific No Inhalation Therapy Delivery Source Oxygen Device Nebulizer Duration (Minutes) 10 Position High Mckeon's Images from the original note were not included. [facility] MD Freddie Vaughn MD Kaleem Gill, MD Sneha Kommoori, MD Ruqiyya Muhammad, MD Ashlee Walters, MD Lowell Carlisle, MD Alvina Maria, MD Diana Huang, BOUNTY TRAPPER Jen Amanda, LUKASZ Ramirez, LUKASZ Ruvalcaba, LUKASZ Mondragon, BOUNTY TRAPPER Lakshmi Richardson, BOUNTY TRAPPER Mamta Toledo, BOUNTY TRAPPER Ceci Real, BOUNTY TRAPPER Jone Montalvo, BOUNTY TRAPPER Nathalie Pinzon, BOUNTY TRAPPER Bárbara Nina, LUKASZ Del Rosario, LUKASZ Nichols, LUKASZ Amos, LUKASZ Nix, LUKASZ Rogers, BOUNTY TRAPPER Jessika Marin, BOUNTY TRAPPER Arthur Bower, BOUNT[employer] TR[employer]PER Hospital Medicine Progress Note Patient: Nikole Banerjee Date of : 1970 Room: [facility]/ PCP: Angelica Flores PA-C Admission date: 11/08/2023 2:03 PM Encounter date: 11/12/23 SUBJECTIVE Chief complaints: Chief Complaint Patient presents with Shortness of Breath Interval History: Status: improved. No overnight events or new complaints. Continues on 4 L per nasal cannula. States she feels like she is breathing better. Chest x-ray shows multifocal pneumonia. Review of Systems Review of Systems Constitutional: Positive for chills, fatigue and fever. Negative for activity change and appetite change. HENT: Negative for nosebleeds, trouble swallowing and voice change. Eyes: Negative for itching. Respiratory: Positive for cough, chest tightness, shortness of breath and wheezing. Negative for stridor. Cardiovascular: Negative for chest pain and palpitations. Gastrointestinal: Negative for abdominal distention and abdominal pain. Endocrine: Negative for polyuria. Genitourinary: Negative for difficulty urinating and dysuria. Musculoskeletal: Negative for gait problem. Skin: Negative for color change. Allergic/Immunologic: Negative for immunocompromised state. Neurological: Negative for seizures and speech difficulty. Hematological: Negative for adenopathy. OBJECTIVE BP 131/86 Pulse 87 Temp 36.9 C (98.4 F) (Oral) Resp 20 Ht 154.9 cm (5' 1 ) Wt 111.5 kg (245 lb 14.4 oz) SpO2 91% BMI 46.46 kg/m Intake/Output Summary (Last 24 hours) at 11/12/2023 1607 Last data filed at 11/12/2023 1000 Gross per 24 hour Intake 10 ml Output 850 ml Net -840 ml Physical Exam Physical Exam Vitals reviewed. Constitutional: Appearance: She is well-developed. HENT: Head: Normocephalic and atraumatic. Right Ear: External ear normal. Left Ear: External ear normal. Nose: Nose normal. Mouth/Throat: Mouth: Mucous membranes are moist. Pharynx: Oropharynx is clear. Uvula midline. No oropharyngeal exudate. Eyes: General: Right eye: No discharge. Left eye: No discharge. Extraocular Movements: Extraocular movements intact. Pupils: Pupils are equal, round, and reactive to light. Neck: Thyroid: No thyromegaly. Trachea: No tracheal deviation. Cardiovascular: Rate and Rhythm: Normal rate and regular rhythm. Pulses: Normal pulses. Heart sounds: Normal heart sounds. Pulmonary: Effort: Pulmonary effort is normal. No respiratory distress. Breath sounds: No stridor. Wheezing (Scattered wheezing noted throughout lung shrestha.) present. Chest: Chest wall: No tenderness. Abdominal: General: Bowel sounds are normal. There is no distension. Palpations: Abdomen is soft. Tenderness: There is no abdominal tenderness. There is no guarding or rebound. Musculoskeletal: General: No tenderness or deformity. Normal range of motion. Cervical back: Normal range of motion and neck supple. Lymphadenopathy: Cervical: No cervical adenopathy. Upper Body: Right upper body: No supraclavicular or epitrochlear adenopathy. Left upper body: No supraclavicular or epitrochlear adenopathy. Skin: General: Skin is warm and dry. Capillary Refill: Capillary refill takes less than 2 seconds. Coloration: Skin is not cyanotic. Nails: There is no clubbing. Neurological: Mental Status: She is alert. Motor: No abnormal muscle tone or seizure activity. Coordination: Coordination normal. Psychiatric: Attention and Perception: Attention normal. Behavior: Behavior normal. Thought Content: Thought content normal. Judgment: Judgment normal. Medications Scheduled: aspirin, 325 mg, oral, Daily calcium carbonate-vitamin D3, 1 tablet, oral, Daily with breakfast cefTRIAXone (ROCEPHIN) IV, 1,000 mg, intravenous, Q24H doxycycline, 100 mg, oral, BID DULoxetine, 60 mg, oral, Daily enoxaparin (LOVENOX) injection, 40 mg, subcutaneous, Q12H insulin lispro, 2-10 Units, subcutaneous, TID with meals insulin lispro, 2-8 Units, subcutaneous, Nightly loratadine, 10 mg, oral, Nightly melatonin, 3 mg, oral, Nightly methylPREDNISolone sodium succinate, 40 mg, intravenous, Q8H montelukast, 10 mg, oral, Nightly lepojipl-khou-OP-calcium &mins, 1 tablet, oral, Daily oseltamivir, 75 mg, oral, BID pantoprazole, 40 mg, oral, QAM AC sodium chloride, 3 mL, intravenous, Q12H MARIELA Infusions: dextrose 5 % in water, 100 mL/hr sodium chloride 0.9 %, 20 mL/hr As Needed: acetaminophen alum-mag hydroxide-simeth calcium gluconate calcium gluconate calcium gluconate dextrose dextrose 5 % in water dextrose 50 % in water (D50W) glucagon (human recombinant) levalbuterol magnesium sulfate magnesium sulfate ondansetron potassium chloride OR potassium chloride sennosides-docusate sodium sodium chloride sodium chloride sodium chloride 0.9 % Allergies: Gabapentin, Gentamicin, and Latex Labs Recent Results (from the past 24 hour(s)) Bedside Glucose *Place/Obtain serum glucose if >500(>600 MRH) per glucometer. Collection Time: 11/11/23 4:18 PM Result Value Ref Range Bedside glucose 191 (H) 65 - 99 mg/dL Bedside Glucose *Place/Obtain serum glucose if >500(>600 MRH) per glucometer. Collection Time: 11/11/23 9:49 PM Result Value Ref Range Bedside glucose 190 (H) 65 - 99 mg/dL Comprehensive metabolic panel Collection Time: 11/12/23 5:21 AM Result Value Ref Range Sodium 137 134 - 146 mmol/L Potassium, Bld 4.0 3.5 - 5.0 mmol/L Chloride 93 (L) 98 - 109 mmol/L CO2 33 (H) 22 - 32 mmol/L Anion gap 11 5 - 15 mmol/L BUN 19 5 - 23 mg/dL Creatinine 0.61 0.40 - 1.00 mg/dL Glucose 193 (H) 65 - 99 mg/dL Calcium 8.9 8.5 - 10.5 mg/dL Total Protein 7.2 6.0 - 8.0 g/dL Albumin 3.2 3.2 - 5.3 g/dL Alkaline Phosphatase 65 39 - 130 U/L AST 23 0 - 41 U/L ALT 21 0 - 31 U/L Total bilirubin 0.9 0.3 - 1.2 mg/dL eGFR (CKD-EPI)non-race dependent >90 >59 ml/min/1.73sq.m Magnesium Collection Time: 11/12/23 5:21 AM Result Value Ref Range Magnesium 1.9 1.8 - 2.6 mg/dL CBC auto differential Collection Time: 11/12/23 5:21 AM Result Value Ref Range White Blood Cells 14.6 (H) 4.0 - 11.0 X10E9/L RBC count 5.10 3.80 - 5.20 X10E12/L Hemoglobin 14.7 11.7 - 15.5 g/dL Hematocrit 46.0 35 - 47 % MCV 90 80 - 100 fL MCH 28.8 27 - 34 pg MCHC 32.0 32 - 36 g/dL RDW 15.6 (H) 11.5 - 15.0 % Platelets 204 150 - 450 X10E9/L MPV 9.2 7 - 12 fL % neutrophils 86.8 % % lymphocytes 6.8 % % monocytes 6.2 % % eosinophils 0.0 % % Basophils 0.2 % Neutrophils Absolute (A) 12.6 (H) 1.5 - 6.6 X10E9/L Lymphocytes Absolute 1.0 1.0 - 3.5 X10E9/L Monocytes Absolute 0.9 0 - 0.9 X10E9/L Eosinophils Absolute 0.0 0.0 - 0.4 X10E9/L Basophils Absolute 0.0 0.0 - 0.2 X10E9/L Bedside Glucose *Place/Obtain serum glucose if >500(>600 MRH) per glucometer. Collection Time: 11/12/23 8:15 AM Result Value Ref Range Bedside glucose 158 (H) 65 - 99 mg/dL Bedside Glucose *Place/Obtain serum glucose if >500(>600 MRH) per glucometer. Collection Time: 11/12/23 11:37 AM Result Value Ref Range Bedside glucose 193 (H) 65 - 99 mg/dL Radiology X-ray chest 1 view Result Date: 11/08/2023 Narrative: Procedure: Chest x-ray performed Number of views:AP portable History:Shortness of breath Comparison:09/11/2023 Findings: The heart and lungs show no acute findings, and the mediastinum and brandon are grossly negative . Impression: No acute change. Finalized by Christine Sweeney DO on 11/08/2023 2:44 PM Colonoscopy Report Result Date: 10/17/2023 Narrative: This order has been auto-finalized for image and report archival in PACs. *For full report details, please reach out to your physician. This image is visible to you in MyChart.* HOSPITAL PROBLEM LIST Principal Problem: Acute respiratory failure with hypoxia ([facility]) Active Problems: Urge incontinence of urine Influenza A COPD (chronic obstructive pulmonary disease) ([facility]) Hypokalemia ASSESSMENT & PLAN Acute respiratory failure with hypoxia: O2 as needed. Requiring 4 L per nasal cannula. No oxygen requirements at home. Wean as able. Solu-Medrol 40 mg q.8 hours. DuoNeb q.4 hours as needed. Repeat chest x-ray shows multifocal pneumonia. Secondary bacterial pneumonia of unknown origin. Worsening leukocytosis. Start IV Rocephin and p.o. doxycycline. Sputum culture if able. Repeat procalcitonin. Influenza A: Tamiflu day /. COPD: Acute exacerbation secondary to Flu A. Hypokalemia: Supplement. Monitor electrolytes daily replace per protocol. Monitor kidney function daily. DVT px: Lovenox. DC planning: Still continuing to wear 4 L of oxygen nasal cannula. Will probably require 2-3 more days or home oxygen on discharge. No previous home O2 use. TY Beard, 11/12/2023 4:07 PM [facility] 7AM-7PM: Message rounding SIDNEY in [employer] or page through [employer]. 7PM-7AM: Page on-call SIDNEY through our answering service, . This note is dictated with the use of M*Modal. Please note that this dictation was completed with computer voice recognition software. Quite often unanticipated grammatical, syntax, homophones, and other interpretive errors are inadvertently transcribed by the computer software. Please disregard these errors. Please excuse any errors that have escaped final proofreading. TY Beard 11/12/23 7531 Physician Attestation: I have reviewed the above note authored by the Advance Practice Provider (SIDNEY) including history, review of systems, physical examination, medical decision making and agree with the assessment & plan. I have personally performed a face to face diagnostic evaluation on this patient. I have reviewed all laboratory findings and imaging reports/films. I have independently evaluated the patient and repeated mendoza portions of the physical exam. I agree with the SIDNEY plan as above, unless otherwise noted. AHRF 2/2 flu, now complicated by bacterial superinfection. Start Abx today, if improving and O2 needs at baseline, plan for DC Late sat or Early Over 5 day hospital stay, Nursing supervised mobility tomorrow, consider PT eval if needed. RE MCCARTHY MD Images from the original note were not included. [facility] Nahum Bhakta, MD Freddie Saldana, MD Elías Gupta, MD Juanita Santiago, MD Camden Oconnor, MD Ashlee Walters, MD Lowell Carlisle, MD Alvina Maria, MD Diana Huang, B[employer]PER Jen Amanda, [employer] Prabha Ramirez, [facility] Ina Ruvalcaba, [facility] Chayo Alanna, [facility] Lakshmi Richardson, [facility] Mamta Toledo, [facility] Ceci Real, [employer] Jone Montalvo, [employer] Nathalie Pinzon, [facility] Bárbara Nina, [facility] Claudia Del Rosario, [facility] Deana Nichols, [facility] Phan Amos, [facility] Marga Nix, [employer] Bárbara Rogers, [facility] Jessika Marin, [employer]PER Arthur Bower, [facility] Progress Note Patient: Nikole Banerjee Date of : 1970 Room: [facility] PCP: Angelica Flores PA-C Admission date: 11/08/2023 2:03 PM Encounter date: 11/11/23 SUBJECTIVE Chief complaints: Chief Complaint Patient presents with Shortness of Breath Interval History: Status: improved. No overnight events or new complaints. O2 down to 4 L per nasal cannula from 5 yesterday. Review of Systems Review of Systems Constitutional: Positive for chills, fatigue and fever. Negative for activity change and appetite change. HENT: Negative for nosebleeds, trouble swallowing and voice change. Eyes: Negative for itching. Respiratory: Positive for cough, chest tightness, shortness of breath and wheezing. Negative for stridor. Cardiovascular: Negative for chest pain and palpitations. Gastrointestinal: Negative for abdominal distention and abdominal pain. Endocrine: Negative for polyuria. Genitourinary: Negative for difficulty urinating and dysuria. Musculoskeletal: Negative for gait problem. Skin: Negative for color change. Allergic/Immunologic: Negative for immunocompromised state. Neurological: Negative for seizures and speech difficulty. Hematological: Negative for adenopathy. OBJECTIVE BP 118/66 Pulse 86 Temp 36.8 C (98.3 F) Resp 16 Ht 154.9 cm (5' 1 ) Wt 111.5 kg (245 lb 14.4 oz) SpO2 91% BMI 46.46 kg/m Intake/Output Summary (Last 24 hours) at 11/11/2023 1652 Last data filed at 11/11/2023 1600 Gross per 24 hour Intake 1480 ml Output 1000 ml Net 480 ml Physical Exam Physical Exam Vitals reviewed. Constitutional: Appearance: She is well-developed. HENT: Head: Normocephalic and atraumatic. Right Ear: External ear normal. Left Ear: External ear normal. Nose: Nose normal. Mouth/Throat: Mouth: Mucous membranes are moist. Pharynx: Oropharynx is clear. Uvula midline. No oropharyngeal exudate. Eyes: General: Right eye: No discharge. Left eye: No discharge. Extraocular Movements: Extraocular movements intact. Pupils: Pupils are equal, round, and reactive to light. Neck: Thyroid: No thyromegaly. Trachea: No tracheal deviation. Cardiovascular: Rate and Rhythm: Normal rate and regular rhythm. Pulses: Normal pulses. Heart sounds: Normal heart sounds. Pulmonary: Effort: Pulmonary effort is normal. No respiratory distress. Breath sounds: No stridor. Wheezing (Scattered wheezing noted throughout lung shrestha.) present. Chest: Chest wall: No tenderness. Abdominal: General: Bowel sounds are normal. There is no distension. Palpations: Abdomen is soft. Tenderness: There is no abdominal tenderness. There is no guarding or rebound. Musculoskeletal: General: No tenderness or deformity. Normal range of motion. Cervical back: Normal range of motion and neck supple. Lymphadenopathy: Cervical: No cervical adenopathy. Upper Body: Right upper body: No supraclavicular or epitrochlear adenopathy. Left upper body: No supraclavicular or epitrochlear adenopathy. Skin: General: Skin is warm and dry. Capillary Refill: Capillary refill takes less than 2 seconds. Coloration: Skin is not cyanotic. Nails: There is no clubbing. Neurological: Mental Status: She is alert. Motor: No abnormal muscle tone or seizure activity. Coordination: Coordination normal. Psychiatric: Attention and Perception: Attention normal. Behavior: Behavior normal. Thought Content: Thought content normal. Judgment: Judgment normal. Medications Scheduled: aspirin, 325 mg, oral, Daily calcium carbonate-vitamin D3, 1 tablet, oral, Daily with breakfast DULoxetine, 60 mg, oral, Daily enoxaparin (LOVENOX) injection, 40 mg, subcutaneous, Q12H insulin lispro, 2-10 Units, subcutaneous, TID with meals insulin lispro, 2-8 Units, subcutaneous, Nightly loratadine, 10 mg, oral, Nightly melatonin, 3 mg, oral, Nightly methylPREDNISolone sodium succinate, 40 mg, intravenous, Q8H montelukast, 10 mg, oral, Nightly ajxqsopq-bbkz-JV-calcium &mins, 1 tablet, oral, Daily oseltamivir, 75 mg, oral, BID pantoprazole, 40 mg, oral, QAM AC sodium chloride, 3 mL, intravenous, Q12H MARIELA Infusions: dextrose 5 % in water, 100 mL/hr sodium chloride 0.9 %, 20 mL/hr As Needed: acetaminophen alum-mag hydroxide-simeth calcium gluconate calcium gluconate calcium gluconate dextrose dextrose 5 % in water dextrose 50 % in water (D50W) glucagon (human recombinant) levalbuterol magnesium sulfate magnesium sulfate ondansetron potassium chloride OR potassium chloride sennosides-docusate sodium sodium chloride sodium chloride sodium chloride 0.9 % Allergies: Gabapentin, Gentamicin, and Latex Labs Recent Results (from the past 24 hour(s)) Bedside Glucose *Place/Obtain serum glucose if >500(>600 MRH) per glucometer. Collection Time: 11/10/23 5:15 PM Result Value Ref Range Bedside glucose 130 (H) 65 - 99 mg/dL Bedside Glucose *Place/Obtain serum glucose if >500(>600 MRH) per glucometer. Collection Time: 11/10/23 10:11 PM Result Value Ref Range Bedside glucose 127 (H) 65 - 99 mg/dL Comprehensive metabolic panel Collection Time: 11/11/23 5:14 AM Result Value Ref Range Sodium 139 134 - 146 mmol/L Potassium, Bld 4.3 3.5 - 5.0 mmol/L Chloride 95 (L) 98 - 109 mmol/L CO2 33 (H) 22 - 32 mmol/L Anion gap 11 5 - 15 mmol/L BUN 19 5 - 23 mg/dL Creatinine 0.62 0.40 - 1.00 mg/dL Glucose 175 (H) 65 - 99 mg/dL Calcium 9.0 8.5 - 10.5 mg/dL Total Protein 7.5 6.0 - 8.0 g/dL Albumin 3.3 3.2 - 5.3 g/dL Alkaline Phosphatase 61 39 - 130 U/L AST 26 0 - 41 U/L ALT 21 0 - 31 U/L Total bilirubin 0.7 0.3 - 1.2 mg/dL eGFR (CKD-EPI)non-race dependent >90 >59 ml/min/1.73sq.m Magnesium Collection Time: 11/11/23 5:14 AM Result Value Ref Range Magnesium 2.1 1.8 - 2.6 mg/dL CBC auto differential Collection Time: 11/11/23 5:14 AM Result Value Ref Range White Blood Cells 15.7 (H) 4.0 - 11.0 X10E9/L RBC count 5.27 (H) 3.80 - 5.20 X10E12/L Hemoglobin 15.1 11.7 - 15.5 g/dL Hematocrit 47.7 (H) 35 - 47 % MCV 91 80 - 100 fL MCH 28.6 27 - 34 pg MCHC 31.6 (L) 32 - 36 g/dL RDW 16.0 (H) 11.5 - 15.0 % Platelets 193 150 - 450 X10E9/L MPV 8.8 7 - 12 fL % neutrophils 88.1 % % lymphocytes 6.6 % % monocytes 5.1 % % eosinophils 0.0 % % Basophils 0.2 % Neutrophils Absolute (A) 13.8 (H) 1.5 - 6.6 X10E9/L Lymphocytes Absolute 1.0 1.0 - 3.5 X10E9/L Monocytes Absolute 0.8 0 - 0.9 X10E9/L Eosinophils Absolute 0.0 0.0 - 0.4 X10E9/L Basophils Absolute 0.0 0.0 - 0.2 X10E9/L Bedside Glucose *Place/Obtain serum glucose if >500(>600 MRH) per glucometer. Collection Time: 11/11/23 7:44 AM Result Value Ref Range Bedside glucose 127 (H) 65 - 99 mg/dL Bedside Glucose *Place/Obtain serum glucose if >500(>600 MRH) per glucometer. Collection Time: 11/11/23 12:04 PM Result Value Ref Range Bedside glucose 130 (H) 65 - 99 mg/dL Bedside Glucose *Place/Obtain serum glucose if >500(>600 MRH) per glucometer. Collection Time: 11/11/23 4:18 PM Result Value Ref Range Bedside glucose 191 (H) 65 - 99 mg/dL Radiology X-ray chest 1 view Result Date: 11/08/2023 Narrative: Procedure: Chest x-ray performed Number of views:AP portable History:Shortness of breath Comparison:09/11/2023 Findings: The heart and lungs show no acute findings, and the mediastinum and brandon are grossly negative . Impression: No acute change. Finalized by Christine Sweeney DO on 11/08/2023 2:44 PM Colonoscopy Report Result Date: 10/17/2023 Narrative: This order has been auto-finalized for image and report archival in PACs. *For full report details, please reach out to your physician. This image is visible to you in MyChart.* HOSPITAL PROBLEM LIST Principal Problem: Acute respiratory failure with hypoxia ([facility] Active Problems: Urge incontinence of urine Influenza A COPD (chronic obstructive pulmonary disease) ([facility]) Hypokalemia ASSESSMENT & PLAN Acute respiratory failure with hypoxia: O2 as needed. Requiring 4 L per nasal cannula. No oxygen requirements at home. Wean as able. Solu-Medrol 40 mg q.8 hours. DuoNeb q.4 hours as needed. Repeat chest x-ray tomorrow a.m. Influenza A: Tamiflu day 3/. COPD: Acute exacerbation secondary to Flu A. Procalcitonin nondiagnostic is 0.09. No need for antibiotics. Hypokalemia: Supplement. Monitor electrolytes daily replace per protocol. Monitor kidney function daily. DVT px: Lovenox. DC planning: Still continuing to wear 4 L of oxygen nasal cannula. Will probably require 2-3 more days or home oxygen on discharge. No previous home O2 use. Jone Montalvo, SHERIE-[employer]OUNT[employer]PER, 11/11/2023 4:52 PM [facility] Hospitalists 7AM-7PM: Message rounding SIDNEY in [employer] or page through [employer]. 7PM-7AM: Page on-call SIDNEY through our answering service, . This note is dictated with the use of M*Modal. Please note that this dictation was completed with computer voice recognition software. Quite often unanticipated grammatical, syntax, homophones, and other interpretive errors are inadvertently transcribed by the computer software. Please disregard these errors. Please excuse any errors that have escaped final proofreading. Jone Montalvo, SPONSORSHIP MANAGER-[employer] 11/11/23 1701 Physician Attestation: I have reviewed the above note authored by the Advance Practice Provider (SIDNEY) including history, review of systems, physical examination, medical decision making and agree with the assessment & plan. I have personally performed a face to face diagnostic evaluation on this patient. I have reviewed all laboratory findings and imaging reports/films. I have independently evaluated the patient and repeated mendoza portions of the physical exam. I agree with the SIDNEY plan as above, unless otherwise noted. Influenza, improving slowly, WBC peaked/downtrend. Continued inc O2 needs. CXR belen if ongoing O2 needs to screen for ?lobar PNA RE MCCARTHY MD Patient not able to complete home oxygen evaluation due to high FI02 needs of 5L while at rest and this being an acute situation and not her baseline. Physician was in agreement to hold off on evaluation today. Progress Note [facility] 11/10/2023 9:40 AM Name: Nikole Banerjee Acct: [id number] Room: [address] [place] [address] Day: 1 Admit Date: 11/08/2023 2:03 PM PCP: Angelica Flores PA-C Subjective: C/C: Chief Complaint Patient presents with Shortness of Breath Interval History: Status: unchanged Patient still has cough and dyspnea she is still hypoxic on 5 L of oxygen ROS: All 10 systems reviewed and found negative except as noted Review of Systems Constitutional: Positive for chills, fatigue and fever. Negative for activity change and appetite change. HENT: Negative for nosebleeds, trouble swallowing and voice change. Eyes: Negative for itching. Respiratory: Positive for cough, chest tightness, shortness of breath and wheezing. Negative for stridor. Cardiovascular: Negative for chest pain and palpitations. Gastrointestinal: Negative for abdominal distention and abdominal pain. Endocrine: Negative for polyuria. Genitourinary: Negative for difficulty urinating and dysuria. Musculoskeletal: Negative for gait problem. Skin: Negative for color change. Allergic/Immunologic: Negative for immunocompromised state. Neurological: Negative for seizures and speech difficulty. Hematological: Negative for adenopathy. Medications: Allergies: Allergies Allergen Reactions Gabapentin Swelling Facial, legs, feet swelling Gentamicin Rash Latex Hives Current Meds: Current Facility-Administered Medications: acetaminophen (TYLENOL) tablet 650 mg, 650 mg, oral, Q4H PRN, TY Curtis alum-mag hydroxide-simeth (MAALOX) 200-200-20 mg/5 mL suspension 30 mL, 30 mL, oral, PCHSP, TY Curtis aspirin EC tablet 325 mg, 325 mg, oral, Daily, TY Barajas, 325 mg at 11/10/23 0846 calcium carbonate-vitamin D3 (OSCAL 500 + D) 500 mg(1,250mg) -200 units per tablet 1 tablet, 1 tablet, oral, Daily with breakfast, TY Barajas, 1 tablet at 11/10/23 0846 calcium gluconate 3,000 mg in sodium chloride 0.9 % 100 mL IVPB, 3,000 mg, intravenous, PRNMarga APRN-CNP calcium gluconate 4,000 mg in sodium chloride 0.9 % 250 mL IVPB, 4,000 mg, intravenous, PRNMarga APRN-CNP calcium gluconate IVPB 2000 mg/100 mL (20 mg/mL premix), 2,000 mg, intravenous, PRN, TY Curtis dextrose (GLUTOSE) 40 % gel 15 g, 15 g, oral, PRN, TY Curtis dextrose 5 % (D5W) infusion, 100 mL/hr, intravenous, Continuous PRN, TY Curtis dextrose 50 % in water (D50W) 50% solution 25 mL, 25 mL, intravenous, PRN, Marga Nix APRN-LUKASZ DULoxetine (CYMBALTA) DR capsule 60 mg, 60 mg, oral, Daily, TY Barajas, 60 mg at 11/10/23 0846 enoxaparin (LOVENOX) syringe 40 mg, 40 mg, subcutaneous, Q12H, TY Curtis, 40 mg at 11/10/23 0633 glucagon HCL injection 1 mg, 1 mg, intramuscular, PRN, TY Curtis insulin lispro (HumaLOG) injection 2-10 Units, 2-10 Units, subcutaneous, TID with meals, TY Curtis, 2 Units at 11/09/23 1811 insulin lispro (HumaLOG) injection 2-8 Units, 2-8 Units, subcutaneous, Nightly, Marga Nix APRN-LUKASZ, 2 Units at 11/08/23 2230 levalbuterol (XOPENEX) nebulizer solution 1.25 mg, 1.25 mg, nebulization, Q6H PRN, Marga Nix APRN-LUKASZ, 1.25 mg at 11/10/23 0803 loratadine (CLARITIN) tablet 10 mg, 10 mg, oral, Nightly, TY Barajas, 10 mg at 11/09/23 2143 magnesium sulfate IVPB 2000 mg/50 mL in iso-osmotic water (40 mg/mL premix), 2,000 mg, intravenous, PRN, Marga Nix APRN-LUKASZ magnesium sulfate IVPB 4000 mg/100 mL in iso-osmotic water (40 mg/mL premix), 4,000 mg, intravenous, PRN, Marga Nix APRN-LUKASZ melatonin (CIRCADIN) tablet 3 mg, 3 mg, oral, Nightly, Elías Gupta MD, 3 mg at 11/09/23 2314 methylPREDNISolone sod suc(PF) (Solu-MEDROL) injection 40 mg, 40 mg, intravenous, Q8H, TY Curtis, 40 mg at 11/10/23 0630 montelukast (SINGULAIR) tablet 10 mg, 10 mg, oral, Nightly, Jessika Marin APRN-LUKASZ, 10 mg at 11/09/23 2143 bdktmyil-yxlr-YR-calcium &mins (THERAGRAN-M) 9 mg iron-400 mcg tablet 1 tablet, 1 tablet, oral, Daily, TY Barajas, 1 tablet at 11/10/23 0846 ondansetron (PF) (ZOFRAN) injection 4 mg, 4 mg, intravenous, Q6H PRN, TY Curtis, 4 mg at 11/10/23 0851 oseltamivir (TAMIFLU) capsule 75 mg, 75 mg, oral, BID, TY Curtis, 75 mg at 11/10/23 0846 potassium chloride (K-TAB,KLOR-CON) CR tablet 30-50 mEq, 30-50 mEq, oral, PRN, 30 mEq at 11/08/23 2243 OR potassium chloride (KAYCIEL) 20 mEq/15 mL solution 30-50 mEq, 30-50 mEq, oral, PRN, TY Curtis sennosides-docusate sodium (SENOKOT-S) 8.6-50 mg 1 tablet, 1 tablet, oral, Q12H PRN, TY Curtis sodium chloride 0.9 % flush 3 mL, 3 mL, intravenous, PRN, Marga Nix APRN-LUKASZ, 3 mL at 11/09/23 0557 sodium chloride 0.9 % flush 3 mL, 3 mL, intravenous, Q12H MARIELA, TY Curtis, 3 mL at 11/10/23 0847 sodium chloride 0.9 % flush bag, 25 mL, intravenous, PRN, TY Curtis sodium chloride 0.9 % infusion, 20 mL/hr, intravenous, Continuous PRN, TY Curtis Facility-Administered Medications Ordered in Other Encounters: triamcinolone (KENALOG) 0.1 % cream 1 Application, 1 Application, topical, PRN, Jennifer Castro MD, 1 Application at 09/03/23 2242 Data: Code Status: No Order Family History Problem Relation Age of Onset Emphysema Mother Emphysema Father Lung cancer Father Breast cancer Cousin Social History Socioeconomic History Marital status: Spouse name: Not on file Number of children: Not on file Years of education: Not on file Highest education level: Not on file Occupational History Not on file Tobacco Use Smoking status: Every Day Packs/day: 1.00 Years: 36.00 Additional pack years: 0.00 Total pack years: 36.00 Types: Cigarettes Passive exposure: Past Smokeless tobacco: Never Tobacco comments: not interested in quitting Vaping Use Vaping Use: Never used Substance and Sexual Activity Alcohol use: No Drug use: No Sexual activity: Defer Partners: Male Other Topics Concern Not on file Social History Narrative Not on file Social Determinants of Health Financial Resource Strain: Not on file Food Insecurity: Food Insecurity Present (11/08/2023) Hunger Screening Food Insecurity - Worry: Sometimes True Food Insecurity - Inability: Sometimes True Transportation Needs: Not on file Physical Activity: Not on file Stress: Not on file Social Connections: Not on file Interpersonal Safety: Not on file I/O (24Hr): Intake/Output Summary (Last 24 hours) at 11/10/2023 0940 Last data filed at 11/10/2023 0628 Gross per 24 hour Intake 656 ml Output 350 ml Net 306 ml Labs: Recent Results (from the past 24 hour(s)) Bedside Glucose *Place/Obtain serum glucose if >500(>600 MRH) per glucometer. Collection Time: 11/09/23 12:00 PM Result Value Ref Range Bedside glucose 120 (H) 65 - 99 mg/dL Bedside Glucose *Place/Obtain serum glucose if >500(>600 MRH) per glucometer. Collection Time: 11/09/23 4:09 PM Result Value Ref Range Bedside glucose 169 (H) 65 - 99 mg/dL Bedside Glucose *Place/Obtain serum glucose if >500(>600 MRH) per glucometer. Collection Time: 11/09/23 9:23 PM Result Value Ref Range Bedside glucose 188 (H) 65 - 99 mg/dL Comprehensive metabolic panel Collection Time: 11/10/23 5:13 AM Result Value Ref Range Sodium 139 134 - 146 mmol/L Potassium, Bld 4.7 3.5 - 5.0 mmol/L Chloride 99 98 - 109 mmol/L CO2 30 22 - 32 mmol/L Anion gap 10 5 - 15 mmol/L BUN 16 5 - 23 mg/dL Creatinine 0.57 0.40 - 1.00 mg/dL Glucose 147 (H) 65 - 99 mg/dL Calcium 8.9 8.5 - 10.5 mg/dL Total Protein 7.3 6.0 - 8.0 g/dL Albumin 3.4 3.2 - 5.3 g/dL Alkaline Phosphatase 59 39 - 130 U/L AST 28 0 - 41 U/L ALT 20 0 - 31 U/L Total bilirubin 0.7 0.3 - 1.2 mg/dL eGFR (CKD-EPI)non-race dependent >90 >59 ml/min/1.73sq.m Magnesium Collection Time: 11/10/23 5:13 AM Result Value Ref Range Magnesium 2.1 1.8 - 2.6 mg/dL CBC auto differential Collection Time: 11/10/23 5:13 AM Result Value Ref Range White Blood Cells 17.3 (H) 4.0 - 11.0 X10E9/L RBC count 5.31 (H) 3.80 - 5.20 X10E12/L Hemoglobin 15.4 11.7 - 15.5 g/dL Hematocrit 48.2 (H) 35 - 47 % MCV 91 80 - 100 fL MCH 29.0 27 - 34 pg MCHC 32.0 32 - 36 g/dL RDW 15.8 (H) 11.5 - 15.0 % Platelets 192 150 - 450 X10E9/L MPV 9.1 7 - 12 fL % neutrophils 90.6 % % lymphocytes 4.9 % % monocytes 4.2 % % eosinophils 0.0 % % Basophils 0.3 % Neutrophils Absolute (A) 15.7 (H) 1.5 - 6.6 X10E9/L Lymphocytes Absolute 0.8 (L) 1.0 - 3.5 X10E9/L Monocytes Absolute 0.7 0 - 0.9 X10E9/L Eosinophils Absolute 0.0 0.0 - 0.4 X10E9/L Basophils Absolute 0.1 0.0 - 0.2 X10E9/L All plain film images(s) ,CT, Ultrasound and MRI have been read by the radiologist. Imaging--Reviewed: X-ray chest 1 view Result Date: 11/08/2023 Narrative: Procedure: Chest x-ray performed Number of views:AP portable History:Shortness of breath Comparison:09/11/2023 Findings: The heart and lungs show no acute findings, and the mediastinum and brandon are grossly negative . Impression: No acute change. Finalized by Christine Sweeney DO on 11/08/2023 2:44 PM Colonoscopy Report Result Date: 10/17/2023 Narrative: This order has been auto-finalized for image and report archival in PACs. *For full report details, please reach out to your physician. This image is visible to you in MyChart.* Physical Examination: Vitals: BP 127/69 Pulse 80 Temp 36.9 C (98.5 F) (Oral) Resp 16 Ht 154.9 cm (5' 1 ) Wt 111.8 kg (246 lb 8 oz) SpO2 90% BMI 46.58 kg/m Temp (24hrs), Av.9 C (98.4 F), Min:36.5 C (97.7 F), Max:37.1 C (98.8 F) Physical Exam Vitals reviewed. Constitutional: Appearance: She is well-developed. HENT: Head: Normocephalic and atraumatic. Right Ear: External ear normal. Left Ear: External ear normal. Nose: Nose normal. Mouth/Throat: Pharynx: Uvula midline. No oropharyngeal exudate. Eyes: General: Right eye: No discharge. Left eye: No discharge. Conjunctiva/sclera: Conjunctivae normal. Pupils: Pupils are equal, round, and reactive to light. Neck: Thyroid: No thyromegaly. Trachea: No tracheal deviation. Cardiovascular: Rate and Rhythm: Normal rate and regular rhythm. Heart sounds: Normal heart sounds. Pulmonary: Effort: Pulmonary effort is normal. No respiratory distress. Breath sounds: No stridor. Wheezing present. Chest: Chest wall: No tenderness. Abdominal: General: Bowel sounds are normal. There is no distension. Palpations: Abdomen is soft. Tenderness: There is no abdominal tenderness. There is no guarding or rebound. Musculoskeletal: General: No tenderness or deformity. Normal range of motion. Cervical back: Normal range of motion and neck supple. Lymphadenopathy: Cervical: No cervical adenopathy. Upper Body: Right upper body: No supraclavicular or epitrochlear adenopathy. Left upper body: No supraclavicular or epitrochlear adenopathy. Skin: General: Skin is warm and dry. Capillary Refill: Capillary refill takes less than 2 seconds. Coloration: Skin is not cyanotic. Nails: There is no clubbing. Neurological: Mental Status: She is alert. Motor: No abnormal muscle tone or seizure activity. Coordination: Coordination normal. Psychiatric: Attention and Perception: Attention normal. Behavior: Behavior normal. Thought Content: Thought content normal. Judgment: Judgment normal. Assessment: Primary Problem Influenza A Principal Problem: Influenza A Active Problems: Urge incontinence of urine COPD (chronic obstructive pulmonary disease) ([facility]) Hypokalemia Acute respiratory failure with hypoxia ([facility]) Past Medical History: Diagnosis Date Asthma Bilateral flank pain Bladder spasm Bleeding from varicose vein Breast lesion marker right breast Bronchitis Chronic pain disorder COPD (chronic obstructive pulmonary disease) ([facility]) Depression Disc disease, degenerative, lumbar or lumbosacral DVT (deep venous thrombosis) ([facility]) 1995 right leg Edema GERD (gastroesophageal reflux disease) Heart murmur Hematuria Kidney stones Low back pain Neuropathy Obesity Oliguria Pneumonia PONV (postoperative nausea and vomiting) Proteinuria Visual impairment glasses Plan: IV Solu-Medrol Aerosol treatment On oxygen therapy Wean of oxygen Smoking cessation Tamiflu for influenza infection DVT prophylaxis Lovenox EPCs PT/OT to evaluate and treat Pain control Replace electrolytes as per sliding scale Home medications reviewed and appropriate medications continued Reviewed labs and imaging studies from last 24 hours and results explained to patient Electronically signed by Elías Gupta MD This note is created with the assistance of a speech recognition program. While intending to generate a document that actually reflects the content of the visit, the document can still have some errors including those of syntax and sound a like substitutions which may escape proof reading. It such instances, actual meaning can be extrapolated by contextual diversion. Adjusted lovenox to 40mg SC BID, per protocol, for BMI of 46.8. Claudia Henderson RPh [facility] Progress note Formatting of t his note might be different from the original. DISCHARGE PLANNING NOTE Referral sent to [facility], and DOMINICK Carranza (Fuller- P# ; F# ) [facility] Miscellaneous Notes DISCHARGE PLANNING NOTE Referral sent to [facility], and DOMINICK Carranza (Fuller- P# ; F# ) DISCHARGE PLANNING NOTE 11/14/23 1200 Services Requested Discharge Disposition Home Durable Medical Equipment Home Durable Medical Equipment Name [facility] Home Durable Medical Equipment Tasked Transition Center to send referral to [facility] for home O2 noting pt needs portability to DC from hospital today. Images from the original note were not included. DISCHARGE PLANNING NOTE 11/14/23 1135 Discharge Disposition Discharge Disposition Home with Self Care County Information [facility] Patient Information Primary Caregiver Self Support System Immediate family;Extended family;Friends Stressors Type of stressor (does not endorse) Income Information Income Information Disability Referral To Community Resources Denies needs Discharge Planning Living Arrangements Spouse/significant other Support Systems Spouse/significant other;Children;Family members Assistance Needed has home nebulizer Type of Residence Private residence Private Residence [address] [place] Accessibility Steps into home Number of Steps 1 Home Care Services No Community Agencies Currently Utilized None Patient expects to be discharged to: home Does the patient need discharge transport arranged? No Services Requested: Services Requested Discharge Disposition: Home with self care Initial DC Assessment Completed: Yes DC Planning Complete Discharge Milestones: Yes Patient Goals: Patient/Caregiver Goals Patient/Caregiver Goals: Home No Needs Home No Needs: Caregiver/Family Goals home (pt-stated) Evaluation of progress towards goal: DC to home today Chart reviewed. Pleasant pt agreeable to conversation, introduced self & role of SW; assessment/goals as above. Pt does not endorse alcohol/substance use. Pt does not endorse food insecurity, utilizing SNAP benefit, or financial stressors. Pt is able to afford home medications. Pt has functioning water, heat, cooling & electric in the home. Pt does not endorse any type of domestic abuse. Pt does not endorse anxiety, depression or other mental health concerns. Pt does not endorse self harm; negative [place] screen. Pt provides own transportation. Pt is independent in/out of the home, performs own household tasks, meal preparation & grocery shops. Pt relayed & adult children provide natural supports. Patient's preferred pharmacy is [facility]. PCP verified as ALONZO Sotomayor. Informed pt that RN will be in to check for need for possible home O2 at DC; explained qualifying SPO2. Educated pt on area DME's, pt has no preference & is agreeable to [facility] if home O2 is needed. Pt does not endorse any other current DC needs. Opportunity provided to ask questions, pt does not endorse any at this time. Await home O2 eval. Plan to prevent readmission is for pt to follow up with PCP, pt said she has appointment on Saturday, follow DC instructions including medication compliance and to reach out to health care team as needed. Care Navigation following for safe care transition. Problem: Pain Goal: Patient goal is pain score less than 4, able to rest, and participant in treatment plan as appropriate Description: INTERVENTIONS: 1. Encourage patient or legal unit support representative to report early pain and ask for pain medicine when needed 2. Assess pain using appropriate pain scale and include the scale used when documenting 3. Administer analgesics based on type and severity of pain and evaluate response within appropriate time frame 4. Implement non-pharmacological measures as appropriate and evaluate response 5. Consider cultural and social influences on pain and pain management 6. Notify LIP if interventions ineffective or patient reports new pain 7. Monitor vital signs including pulse ox, end-tidal CO2 based on pain intervention 8. Reassess pain per policy 9. Teach patient or legal unit support representative interventions for comforting Outcome: Progressing Note: Evaluation of progress towards goal: Pt able to report pain according to 0/10 pain scale. Medicating patient for pain per orders. Problem: Inadequate Gas Exchange Goal: Patient is adequately oxygenated and ventilation is improved Description: Patient's goal is: INTERVENTIONS 1. Monitor vital signs, oxygen saturation, respiratory status to include rate, depth, effort, lung sounds, mental status, cyanosis, and labs (ABGs) 2. Administer oxygen as indicated 3. Position patient to optimize gas exchange 4. Instruct patient to turn, cough, and deep breathe; encourage incentive spirometer if indicated 5. Collaborate with Respiratory Therapy for inhaled medication and therapeutic adjuncts 6. Assess skin when indicated 7. Coordinate care and interventions to conserve energy 8. Educate and offer resources for tobacco cessation, if indicated Note: Evaluation of progress towards goal: 11/14/23 0740 Vital Signs Pulse 68 Heart Rate Source Monitor Resp 18 O2 Device Nasal cannula O2 Flow Rate (L/min) 1 L/min Patient Position High-emersonomar Respiratory Assessment Assessment Type Pre-treatment;Post-treatment Level of Consciousness Alert Respiratory Pattern Regular;Shallow Chest Assessment Chest expansion symmetrical Bilateral Breath Sounds Expiratory wheezes;Crackles/Rales;Diminishe d Location Specific No Inhalation Therapy Delivery Source Oxygen Device Nebulizer Duration (Minutes) 10 Position High Mckeon's Problem: Pain Goal: Patient goal is pain score less than 4, able to rest, and participant in treatment plan as appropriate Description: INTERVENTIONS: 1. Encourage patient or legal unit support representative to report early pain and ask for pain medicine when needed 2. Assess pain using appropriate pain scale and include the scale used when documenting 3. Administer analgesics based on type and severity of pain and evaluate response within appropriate time frame 4. Implement non-pharmacological measures as appropriate and evaluate response 5. Consider cultural and social influences on pain and pain management 6. Notify LIP if interventions ineffective or patient reports new pain 7. Monitor vital signs including pulse ox, end-tidal CO2 based on pain intervention 8. Reassess pain per policy 9. Teach patient or legal unit support representative interventions for comforting Outcome: Adequate for Discharge Note: Evaluation of progress towards goal: pt denies pain Problem: Infection Goal: Absence of infection during hospitalization Description: Interventions: 1. Assess and monitor for signs and symptoms of infection 2. Monitor lab/diagnostic results 3. Monitor all insertion sites i.e., indwelling lines, tubes and drains 4. Monitor endotracheal (as able) and nasal secretions for changes in amount and color 5. Administer medications as ordered 6. Instruct and encourage patient and family to use good hand hygiene technique 7. Identify and instruct patient/patient unit support representative in use of appropriate isolation precautions for identified infection/symptoms 8. Provide and discuss with patient/patient unit support representative on educational MDRO sheet 9. Encourage and monitor nutritional status daily and consult healthcare business analyst if indicated 10. Implement neutropenic guidelines as needed 11. Review exposure to history of communicable disease and recent travel history on admission 12. Encourage annual influenza vaccine 13. Encourage pneumonia vaccine Outcome: Progressing Note: Evaluation of progress towards goal: pt remains afebrile. Pt is administered antibiotics as per physician orders.And completed Tamiflu. Problem: Respiratory - Adult Goal: Achieves optimal ventilation and oxygenation Description: Patient's goal is: INTERVENTIONS: 1. Assess for changes in respiratory status 2. Assess for changes in mentation and behavior 3. Position to facilitate oxygenation and minimize respiratory effort 4. Oxygen supplementation based on oxygen saturation or ABGs as ordered 5. Consult smoking cessation as indicated 6. Encourage broncho-pulmonary hygiene including cough, deep breathe, Incentive Spirometry, keep HOB elevated as tolerated, and encourage ambulation, as ordered 7. Assess the need for suctioning and obtain order to maintain clear airway 8. Assess and instruct patient to report SOB or any respiratory difficulty 9. Assess the need for Respiratory Therapy support if not already ordered 10. Initiate emergency measures for respiratory failure Outcome: Progressing Note: Evaluation of progress towards goal: pt is weaned down to I liter via nasal canula. Pt did qualify for home oxygen at 1 liter. 11/13/232026 Home Oxygen Qualification - Resting Method *Complete within 48 Hrs of Discharge SpO2 On Room Air At Rest 87 % (85-87%) Amount Of O2 Applied At Rest To Keep SpO2 >88% 1 L/min SpO2 On Applied O2 At Rest 92 % Pt was resting in bed. Attempt to wean oxygen off. Patient oxygen saturations decrease to 85-87% on room air. Oxygen applied at 1 Liter via Nasal Cannula and oxygen saturations improved to 92%. Problem: Multi-Drug Resistant Organism / Rule-Out Infection Prevention Goal: Prevent transmission of infection Description: INTERVENTIONS 1. Place patient in private room or in room with patient with same disease 2. Discard single-use items 3. Clean reusable equipment between patients 4. Wear gloves for direct and indirect contact with patient or contaminants 5. Change gloves between tasks and procedures 6. Wash hands before and after caring for each patient 7. Wear appropriate personal protective equipment in relation to the indicated isolation type 8. Place appropriate isolation signage on patient's door 9. Provide patient/ patient unit support representative with isolation education. Outcome: Progressing Note: Evaluation of progress towards goal: Patient VS WNL, remains afebrile for shift. Continue to monitor. Problem: Inadequate Gas Exchange Goal: Patient is adequately oxygenated and ventilation is improved Description: Patient's goal is: INTERVENTIONS 1. Monitor vital signs, oxygen saturation, respiratory status to include rate, depth, effort, lung sounds, mental status, cyanosis, and labs (ABGs) 2. Administer oxygen as indicated 3. Position patient to optimize gas exchange 4. Instruct patient to turn, cough, and deep breathe; encourage incentive spirometer if indicated 5. Collaborate with Respiratory Therapy for inhaled medication and therapeutic adjuncts 6. Assess skin when indicated 7. Coordinate care and interventions to conserve energy 8. Educate and offer resources for tobacco cessation, if indicated Note: Evaluation of progress towards goal: 11/13/23 0723 Vital Signs Pulse 62 Heart Rate Source Monitor Resp 18 SpO2 93 % O2 Device Nasal cannula O2 Flow Rate (L/min) 1 L/min Respiratory Assessment Assessment Type Pre-treatment Level of Consciousness Alert Respiratory Pattern Regular Chest Assessment Chest expansion symmetrical Bilateral Breath Sounds Diminished;Expiratory wheezes R Breath Sounds Diminished;Expiratory wheezes L Breath Sounds Diminished;Expiratory wheezes Location Specific No Inhalation Therapy Delivery Source Oxygen Device Nebulizer Duration (Minutes) 10 Position High Mckeon's Problem: Pain Goal: Patient goal is pain score less than 4, able to rest, and participant in treatment plan as appropriate Description: INTERVENTIONS: 1. Encourage patient or legal unit support representative to report early pain and ask for pain medicine when needed 2. Assess pain using appropriate pain scale and include the scale used when documenting 3. Administer analgesics based on type and severity of pain and evaluate response within appropriate time frame 4. Implement non-pharmacological measures as appropriate and evaluate response 5. Consider cultural and social influences on pain and pain management 6. Notify LIP if interventions ineffective or patient reports new pain 7. Monitor vital signs including pulse ox, end-tidal CO2 based on pain intervention 8. Reassess pain per policy 9. Teach patient or legal unit support representative interventions for comforting Outcome: Adequate for Discharge Note: Evaluation of progress towards goal: pt denies pain Problem: Infection Goal: Absence of infection during hospitalization Description: Interventions: 1. Assess and monitor for signs and symptoms of infection 2. Monitor lab/diagnostic results 3. Monitor all insertion sites i.e., indwelling lines, tubes and drains 4. Monitor endotracheal (as able) and nasal secretions for changes in amount and color 5. Administer medications as ordered 6. Instruct and encourage patient and family to use good hand hygiene technique 7. Identify and instruct patient/patient unit support representative in use of appropriate isolation precautions for identified infection/symptoms 8. Provide and discuss with patient/patient unit support representative on educational MDRO sheet 9. Encourage and monitor nutritional status daily and consult healthcare business analyst if indicated 10. Implement neutropenic guidelines as needed 11. Review exposure to history of communicable disease and recent travel history on admission 12. Encourage annual influenza vaccine 13. Encourage pneumonia vaccine Outcome: Progressing Note: Evaluation of progress towards goal: pt remains afebrile. Pt is administered antibiotics as per physician orders as well as tamiflu. Problem: Respiratory - Adult Goal: Achieves optimal ventilation and oxygenation Description: Patient's goal is: INTERVENTIONS: 1. Assess for changes in respiratory status 2. Assess for changes in mentation and behavior 3. Position to facilitate oxygenation and minimize respiratory effort 4. Oxygen supplementation based on oxygen saturation or ABGs as ordered 5. Consult smoking cessation as indicated 6. Encourage broncho-pulmonary hygiene including cough, deep breathe, Incentive Spirometry, keep HOB elevated as tolerated, and encourage ambulation, as ordered 7. Assess the need for suctioning and obtain order to maintain clear airway 8. Assess and instruct patient to report SOB or any respiratory difficulty 9. Assess the need for Respiratory Therapy support if not already ordered 10. Initiate emergency measures for respiratory failure Outcome: Progressing Note: Evaluation of progress towards goal: pt is weaned down to 2 liters through the night. Pt states she is experiencing no dyspnea any longer. Respirations are easy and regular. Problem: Pain Goal: Patient goal is pain score less than 4, able to rest, and participant in treatment plan as appropriate Description: INTERVENTIONS: 1. Encourage patient or legal unit support representative to report early pain and ask for pain medicine when needed 2. Assess pain using appropriate pain scale and include the scale used when documenting 3. Administer analgesics based on type and severity of pain and evaluate response within appropriate time frame 4. Implement non-pharmacological measures as appropriate and evaluate response 5. Consider cultural and social influences on pain and pain management 6. Notify LIP if interventions ineffective or patient reports new pain 7. Monitor vital signs including pulse ox, end-tidal CO2 based on pain intervention 8. Reassess pain per policy 9. Teach patient or legal unit support representative interventions for comforting Outcome: Progressing Note: Evaluation of progress towards goal: pt able to verbalize adequate comfort level Problem: Safety Goal: Patient will be injury free during hospitalization Description: INTERVENTIONS: 1. Assess patient's risk for falls and implement fall prevention plan of care per policy 2. Provide and maintain a safe environment 3. Proper use of double Identifiers 4. Medication administration using the 5 rights 5. Hand hygiene 6. Specimens are labeled at the bedside 7. Instruct patient/ patient unit support representative about use of safety devices 8. Include patient/ patient unit support representative in decisions related to safety Outcome: Progressing Note: Evaluation of progress towards goal: pt remains free from injury Problem: Inadequate Gas Exchange Goal: Patient is adequately oxygenated and ventilation is improved Description: Patient's goal is: INTERVENTIONS 1. Monitor vital signs, oxygen saturation, respiratory status to include rate, depth, effort, lung sounds, mental status, cyanosis, and labs (ABGs) 2. Administer oxygen as indicated 3. Position patient to optimize gas exchange 4. Instruct patient to turn, cough, and deep breathe; encourage incentive spirometer if indicated 5. Collaborate with Respiratory Therapy for inhaled medication and therapeutic adjuncts 6. Assess skin when indicated 7. Coordinate care and interventions to conserve energy 8. Educate and offer resources for tobacco cessation, if indicated Note: Evaluation of progress towards goal: 11/12/23 0751 Vital Signs Pulse 58 Heart Rate Source Monitor Resp 22 SpO2 90 % O2 Device Nasal cannula O2 Flow Rate (L/min) 4 L/min Patient Position [place] Respiratory Assessment Assessment Type Pre-treatment;Post-treatment Level of Consciousness Alert Respiratory Pattern Regular Chest Assessment Chest expansion symmetrical Bilateral Breath Sounds Expiratory wheezes Location Specific No Inhalation Therapy Delivery Source Oxygen Device Nebulizer Duration (Minutes) 10 Position High Mckeon's Problem: Pain Goal: Patient goal is pain score less than 4, able to rest, and participant in treatment plan as appropriate Description: INTERVENTIONS: 1. Encourage patient or legal unit support representative to report early pain and ask for pain medicine when needed 2. Assess pain using appropriate pain scale and include the scale used when documenting 3. Administer analgesics based on type and severity of pain and evaluate response within appropriate time frame 4. Implement non-pharmacological measures as appropriate and evaluate response 5. Consider cultural and social influences on pain and pain management 6. Notify LIP if interventions ineffective or patient reports new pain 7. Monitor vital signs including pulse ox, end-tidal CO2 based on pain intervention 8. Reassess pain per policy 9. Teach patient or legal unit support representative interventions for comforting Outcome: Progressing Note: Evaluation of progress towards goal: Pain assessed and treated accordingly. Problem: Safety Goal: Patient will be injury free during hospitalization Description: INTERVENTIONS: 1. Assess patient's risk for falls and implement fall prevention plan of care per policy 2. Provide and maintain a safe environment 3. Proper use of double Identifiers 4. Medication administration using the 5 rights 5. Hand hygiene 6. Specimens are labeled at the bedside 7. Instruct patient/ patient unit support representative about use of safety devices 8. Include patient/ patient unit support representative in decisions related to safety Outcome: Progressing Note: Evaluation of progress towards goal: PT is free of falls, hourly rounding is completed, area is kept clear. Problem: Infection Goal: Absence of infection during hospitalization Description: Interventions: 1. Assess and monitor for signs and symptoms of infection 2. Monitor lab/diagnostic results 3. Monitor all insertion sites i.e., indwelling lines, tubes and drains 4. Monitor endotracheal (as able) and nasal secretions for changes in amount and color 5. Administer medications as ordered 6. Instruct and encourage patient and family to use good hand hygiene technique 7. Identify and instruct patient/patient unit support representative in use of appropriate isolation precautions for identified infection/symptoms 8. Provide and discuss with patient/patient unit support representative on educational MDRO sheet 9. Encourage and monitor nutritional status daily and consult healthcare business analyst if indicated 10. Implement neutropenic guidelines as needed 11. Review exposure to history of communicable disease and recent travel history on admission 12. Encourage annual influenza vaccine 13. Encourage pneumonia vaccine Outcome: Progressing Note: Evaluation of progress towards goal: Pt assessed and monitored for signs and symptoms of infection, lab and diagnostic results monitored as needed, administer medications as needed. Problem: Knowledge Deficit Goal: Patient/patient unit support representative demonstrates understanding of disease process, treatment plan, medications, and discharge instructions Description: INTERVENTIONS 1. Complete learning assessment and assess knowledge base 2. Provide teaching at level of understanding 3. Provide teaching via preferred learning method(s) Outcome: Progressing Note: Evaluation of progress towards goal: Learning assessment and knowledge base assessed, teaching provided at an understandable level as needed. Problem: Discharge Planning Goal: Discharge to post-acute care, other facility, or home with appropriate resources Description: Patient's goal is: INTERVENTIONS 1. Conduct assessment to determine patient/family and health care team treatment goals, and need for post-acute services based on payer coverage, community resources, and patient preferences, and barriers to discharge 2. Coordinate with Social work, Care Navigation, and Utilization Review to arrange appropriate level of services according to patient's needs based on patient preference and payer coverage in collaboration with the physician and health care team 3. Address psychosocial, clinical, and financial barriers to discharge as identified in assessment in conjunction with the patient/family and health care team 4. Consult appropriate ancillary services (i.e.. PT/OT/ST, etc) as needed 5. Communicate with and update the patient/family, physician, and health care team regarding progress on the discharge plan 6. Identify discharge learning needs (meds, wound care, etc). 7. Arrange for needed discharge transportation as appropriate Outcome: Progressing Note: Evaluation of progress towards goal: Pt discharge initiated with attending provider, Pt/Family communicated with and updated regarding process on discharge as needed. Problem: Inadequate Gas Exchange Goal: Patient is adequately oxygenated and ventilation is improved Description: Patient's goal is: INTERVENTIONS 1. Monitor vital signs, oxygen saturation, respiratory status to include rate, depth, effort, lung sounds, mental status, cyanosis, and labs (ABGs) 2. Administer oxygen as indicated 3. Position patient to optimize gas exchange 4. Instruct patient to turn, cough, and deep breathe; encourage incentive spirometer if indicated 5. Collaborate with Respiratory Therapy for inhaled medication and therapeutic adjuncts 6. Assess skin when indicated 7. Coordinate care and interventions to conserve energy 8. Educate and offer resources for tobacco cessation, if indicated Note: Evaluation of progress towards goal: 11/11/232029 Vital Signs Pulse 76 Heart Rate Source Monitor Resp 22 SpO2 92 % O2 Device Nasal cannula O2 Flow Rate (L/min) 4 L/min Patient Position Sitting Respiratory Assessment Assessment Type Pre-treatment Level of Consciousness Alert Respiratory Pattern Regular Chest Assessment Chest expansion symmetrical Bilateral Breath Sounds Expiratory wheezes;Diminished R Breath Sounds Expiratory wheezes;Diminished L Breath Sounds Expiratory wheezes;Diminished Location Specific No Inhalation Therapy Delivery Source Oxygen Device Nebulizer Duration (Minutes) 10 Position Up in chair Problem: Pain Goal: Patient goal is pain score less than 4, able to rest, and participant in treatment plan as appropriate Description: INTERVENTIONS: 1. Encourage patient or legal unit support representative to report early pain and ask for pain medicine when needed 2. Assess pain using appropriate pain scale and include the scale used when documenting 3. Administer analgesics based on type and severity of pain and evaluate response within appropriate time frame 4. Implement non-pharmacological measures as appropriate and evaluate response 5. Consider cultural and social influences on pain and pain management 6. Notify LIP if interventions ineffective or patient reports new pain 7. Monitor vital signs including pulse ox, end-tidal CO2 based on pain intervention 8. Reassess pain per policy 9. Teach patient or legal unit support representative interventions for comforting Outcome: Progressing Note: Evaluation of progress towards goal: pt able to verbalize adequate comfort level Problem: Safety Goal: Patient will be injury free during hospitalization Description: INTERVENTIONS: 1. Assess patient's risk for falls and implement fall prevention plan of care per policy 2. Provide and maintain a safe environment 3. Proper use of double Identifiers 4. Medication administration using the 5 rights 5. Hand hygiene 6. Specimens are labeled at the bedside 7. Instruct patient/ patient unit support representative about use of safety devices 8. Include patient/ patient unit support representative in decisions related to safety Outcome: Progressing Note: Evaluation of progress towards goal: pt remains free from injury Problem: Moderate - High Risk Fall Score Description: Hanson Fall Score of =/> 25 or indicated by [facility] Assessment Goal: Patient should be free from fall Description: Interventions: 1. [place] to environment 2. Hourly rounds addressing the 4 P's (Pain, Positioning, Possessions, Potty) 3. Clear area of hazards (spills, clutter, electrical cords, unnecessary equipment) 4. Place equipment (bed & TV controls, call light, phone, urinal) within reach 5. Encourage patient to wear glasses and hearing aides as appropriate 6. Maintain bed in lowest position 7. Lock wheels on bed/wheelchair 8. Provide adequate lighting, including night light 9. Assess need for additional bedding, food/fluids, pain med's prior to sleep/routinely 10. Provide gripper slippers or personal non-skid footwear 11. Teach patient and patient unit support representative to maintain environment for safety and engage in all aspects of fall prevention program 12. Remind patient to call for help before getting out of bed 13. Initiate bed/chair/exit alarms supportive devices as appropriate, (chair wedge, no-skid floor mat, raised edge mattress, hip protectors) 14. Locate patient bed assignment for optimal visualization 15. Evaluate and identify Safe Patient Handling Equipment needs 16. Provide supervision when out of bed or chair 17. Utilize gait belt as needed to assist with ambulation 18. Place adaptive equipment (cane, walker) within reach 19. Request patient unit support representative bring adaptive equipment/mobility aids from home or obtain and provide as needed 20. Consult pharmacy regarding effects of med's affecting mobility, cognition, and alternatives 21. Obtain physician order for PT if risk factors associated with mobility are present 22. Obtain physician order for OT as appropriate 23. Utilize diversional activities 24. Educate patient and patient unit support representative how to maintain a safe environment during visitation times (notify nurse prior to leaving bedside) 25. Consider appropriateness of medical or non-clinical laboratory medical director 26. Set up voiding schedule as appropriate (every 2 hours) Outcome: Progressing Note: Evaluation of progress towards goal: Pt remains free from falls or accidental injury during stay. Fall prevention measures in place. Hourly rounding per RN and maintained. Problem: Pain Goal: Patient goal is pain score less than 4, able to rest, and participant in treatment plan as appropriate Description: INTERVENTIONS: 1. Encourage patient or legal unit support representative to report early pain and ask for pain medicine when needed 2. Assess pain using appropriate pain scale and include the scale used when documenting 3. Administer analgesics based on type and severity of pain and evaluate response within appropriate time frame 4. Implement non-pharmacological measures as appropriate and evaluate response 5. Consider cultural and social influences on pain and pain management 6. Notify LIP if interventions ineffective or patient reports new pain 7. Monitor vital signs including pulse ox, end-tidal CO2 based on pain intervention 8. Reassess pain per policy 9. Teach patient or legal unit support representative interventions for comforting Outcome: Progressing Note: Evaluation of progress towards goal: pt able to verbalize adequate comfort level Problem: Safety Goal: Patient will be injury free during hospitalization Description: INTERVENTIONS: 1. Assess patient's risk for falls and implement fall prevention plan of care per policy 2. Provide and maintain a safe environment 3. Proper use of double Identifiers 4. Medication administration using the 5 rights 5. Hand hygiene 6. Specimens are labeled at the bedside 7. Instruct patient/ patient unit support representative about use of safety devices 8. Include patient/ patient unit support representative in decisions related to safety Outcome: Progressing Note: Evaluation of progress towards goal: pt remains free from injury Problem: Inadequate Gas Exchange Goal: Patient is adequately oxygenated and ventilation is improved Description: Patient's goal is: INTERVENTIONS 1. Monitor vital signs, oxygen saturation, respiratory status to include rate, depth, effort, lung sounds, mental status, cyanosis, and labs (ABGs) 2. Administer oxygen as indicated 3. Position patient to optimize gas exchange 4. Instruct patient to turn, cough, and deep breathe; encourage incentive spirometer if indicated 5. Collaborate with Respiratory Therapy for inhaled medication and therapeutic adjuncts 6. Assess skin when indicated 7. Coordinate care and interventions to conserve energy 8. Educate and offer resources for tobacco cessation, if indicated Note: Evaluation of progress towards goal: 11/10/23 0803 Vital Signs Pulse 81 Heart Rate Source Monitor Resp 18 SpO2 92 % O2 Device Nasal cannula O2 Flow Rate (L/min) 5 L/min Respiratory Assessment Assessment Type Pre-treatment Level of Consciousness Alert Respiratory Pattern Regular Chest Assessment Chest expansion symmetrical R Breath Sounds Diminished;Expiratory wheezes L Breath Sounds Expiratory wheezes;Diminished Location Specific No Inhalation Therapy Delivery Source Oxygen Device Nebulizer Duration (Minutes) 10 Position High [place] Problem: Pain Goal: Patient goal is pain score less than 4, able to rest, and participant in treatment plan as appropriate Description: INTERVENTIONS: 1. Encourage patient or legal unit support representative to report early pain and ask for pain medicine when needed 2. Assess pain using appropriate pain scale and include the scale used when documenting 3. Administer analgesics based on type and severity of pain and evaluate response within appropriate time frame 4. Implement non-pharmacological measures as appropriate and evaluate response 5. Consider cultural and social influences on pain and pain management 6. Notify LIP if interventions ineffective or patient reports new pain 7. Monitor vital signs including pulse ox, end-tidal CO2 based on pain intervention 8. Reassess pain per policy 9. Teach patient or legal unit support representative interventions for comforting Outcome: Progressing Note: Evaluation of progress towards goal: No c/o pain voiced, no nonverbal s/sx pain noted. Problem: Safety Goal: Patient will be injury free during hospitalization Description: INTERVENTIONS: 1. Assess patient's risk for falls and implement fall prevention plan of care per policy 2. Provide and maintain a safe environment 3. Proper use of double Identifiers 4. Medication administration using the 5 rights 5. Hand hygiene 6. Specimens are labeled at the bedside 7. Instruct patient/ patient unit support representative about use of safety devices 8. Include patient/ patient unit support representative in decisions related to safety Note: Evaluation of progress towards goal: Remains free from injury. Safety precautions maintained. Problem: Infection Goal: Absence of infection during hospitalization Description: Interventions: 1. Assess and monitor for signs and symptoms of infection 2. Monitor lab/diagnostic results 3. Monitor all insertion sites i.e., indwelling lines, tubes and drains 4. Monitor endotracheal (as able) and nasal secretions for changes in amount and color 5. Administer medications as ordered 6. Instruct and encourage patient and family to use good hand hygiene technique 7. Identify and instruct patient/patient unit support representative in use of appropriate isolation precautions for identified infection/symptoms 8. Provide and discuss with patient/patient unit support representative on educational MDRO sheet 9. Encourage and monitor nutritional status daily and consult healthcare business analyst if indicated 10. Implement neutropenic guidelines as needed 11. Review exposure to history of communicable disease and recent travel history on admission 12. Encourage annual influenza vaccine 13. Encourage pneumonia vaccine Outcome: Progressing Note: Evaluation of progress towards goal: No s/sx infection noted. Problem: Knowledge Deficit Goal: Patient/patient unit support representative demonstrates understanding of disease process, treatment plan, medications, and discharge instructions Description: INTERVENTIONS 1. Complete learning assessment and assess knowledge base 2. Provide teaching at level of understanding 3. Provide teaching via preferred learning method(s) Outcome: Progressing Note: Evaluation of progress towards goal: Plan of care reviewed, all interventions explained prior to initiating. Problem: Low Risk Fall Score Description: Hanson Fall Score of 0 - 24 or indicated by [facility] Assessment Goal: Patient should be free from fall Description: Interventions: 1. [place] to environment 2. Hourly rounds addressing the 4 P's (Pain, Positioning, Possessions, Potty) 3. Clear area of hazards (spills, clutter, electrical cords, unnecessary equipment) 4. Place equipment (bed & TV controls, call light, phone, urinal) within reach 5. Encourage patient to wear glasses and hearing aides as appropriate 6. Maintain bed in lowest position 7. Lock wheels on bed/wheelchair 8. Provide adequate lighting, including night light 9. Assess need for additional bedding, food/fluids, pain med's prior to sleep/routinely 10. Provide gripper slippers or personal non-skid footwear 11. Teach patient and patient unit support representative to maintain environment for safety and engage in all aspects of fall prevention program Outcome: Progressing Note: Evaluation of progress towards goal: Remains free from falls. Fall precautions maintained. Problem: Respiratory - Adult Goal: Achieves optimal ventilation and oxygenation Description: Patient's goal is: INTERVENTIONS: 1. Assess for changes in respiratory status 2. Assess for changes in mentation and behavior 3. Position to facilitate oxygenation and minimize respiratory effort 4. Oxygen supplementation based on oxygen saturation or ABGs as ordered 5. Consult smoking cessation as indicated 6. Encourage broncho-pulmonary hygiene including cough, deep breathe, Incentive Spirometry, keep HOB elevated as tolerated, and encourage ambulation, as ordered 7. Assess the need for suctioning and obtain order to maintain clear airway 8. Assess and instruct patient to report SOB or any respiratory difficulty 9. Assess the need for Respiratory Therapy support if not already ordered 10. Initiate emergency measures for respiratory failure Outcome: Progressing Note: Evaluation of progress towards goal: Pt increased to 5lpm NC d/t sats 88-89%, 02 sats 90-95% w/ 5lpm. No distress noted. Pt occasionally expectorating thick pale yellow phlegm. Problem: Pain Goal: Patient goal is pain score less than 4, able to rest, and participant in treatment plan as appropriate Description: INTERVENTIONS: 1. Encourage patient or legal unit support representative to report early pain and ask for pain medicine when needed 2. Assess pain using appropriate pain scale and include the scale used when documenting 3. Administer analgesics based on type and severity of pain and evaluate response within appropriate time frame 4. Implement non-pharmacological measures as appropriate and evaluate response 5. Consider cultural and social influences on pain and pain management 6. Notify LIP if interventions ineffective or patient reports new pain 7. Monitor vital signs including pulse ox, end-tidal CO2 based on pain intervention 8. Reassess pain per policy 9. Teach patient or legal unit support representative interventions for comforting Outcome: Progressing Note: Evaluation of progress towards goal: Pt able to report pain according to 0/10 pain scale. Medicating patient for pain per orders. Problem: Safety Goal: Patient will be injury free during hospitalization Description: INTERVENTIONS: 1. Assess patient's risk for falls and implement fall prevention plan of care per policy 2. Provide and maintain a safe environment 3. Proper use of double Identifiers 4. Medication administration using the 5 rights 5. Hand hygiene 6. Specimens are labeled at the bedside 7. Instruct patient/ patient unit support representative about use of safety devices 8. Include patient/ patient unit support representative in decisions related to safety Outcome: Progressing Note: Evaluation of progress towards goal: Pt's risk for falls assessed and fall prevention implemented as needed, safe environment provided and maintained, hand hygiene completed. Problem: Infection Goal: Absence of infection during hospitalization Description: Interventions: 1. Assess and monitor for signs and symptoms of infection 2. Monitor lab/diagnostic results 3. Monitor all insertion sites i.e., indwelling lines, tubes and drains 4. Monitor endotracheal (as able) and nasal secretions for changes in amount and color 5. Administer medications as ordered 6. Instruct and encourage patient and family to use good hand hygiene technique 7. Identify and instruct patient/patient unit support representative in use of appropriate isolation precautions for identified infection/symptoms 8. Provide and discuss with patient/patient unit support representative on educational MDRO sheet 9. Encourage and monitor nutritional status daily and consult healthcare business analyst if indicated 10. Implement neutropenic guidelines as needed 11. Review exposure to history of communicable disease and recent travel history on admission 12. Encourage annual influenza vaccine 13. Encourage pneumonia vaccine Outcome: Progressing Note: Evaluation of progress towards goal: Patient VS WNL, remains afebrile for shift. Problem: Knowledge Deficit Goal: Patient/patient unit support representative demonstrates understanding of disease process, treatment plan, medications, and discharge instructions Description: INTERVENTIONS 1. Complete learning assessment and assess knowledge base 2. Provide teaching at level of understanding 3. Provide teaching via preferred learning method(s) Outcome: Progressing Note: Evaluation of progress towards goal: Patient is taught verbally at and appropriate level of understanding using the teach back method. Patient was encouraged to asked questions to learn about of their plan of care and medications. The patient received proper education prior to medication administration. The patient understands and has no additional questions at this time. Problem: Respiratory - Adult Goal: Achieves optimal ventilation and oxygenation Description: Patient's goal is: INTERVENTIONS: 1. Assess for changes in respiratory status 2. Assess for changes in mentation and behavior 3. Position to facilitate oxygenation and minimize respiratory effort 4. Oxygen supplementation based on oxygen saturation or ABGs as ordered 5. Consult smoking cessation as indicated 6. Encourage broncho-pulmonary hygiene including cough, deep breathe, Incentive Spirometry, keep HOB elevated as tolerated, and encourage ambulation, as ordered 7. Assess the need for suctioning and obtain order to maintain clear airway 8. Assess and instruct patient to report SOB or any respiratory difficulty 9. Assess the need for Respiratory Therapy support if not already ordered 10. Initiate emergency measures for respiratory failure Outcome: Progressing Note: Evaluation of progress towards goal: Patient continues to require O2, being weaned down. Problem: Pain Goal: Patient goal is pain score less than 4, able to rest, and participant in treatment plan as appropriate Description: INTERVENTIONS: 1. Encourage patient or legal unit support representative to report early pain and ask for pain medicine when needed 2. Assess pain using appropriate pain scale and include the scale used when documenting 3. Administer analgesics based on type and severity of pain and evaluate response within appropriate time frame 4. Implement non-pharmacological measures as appropriate and evaluate response 5. Consider cultural and social influences on pain and pain management 6. Notify LIP if interventions ineffective or patient reports new pain 7. Monitor vital signs including pulse ox, end-tidal CO2 based on pain intervention 8. Reassess pain per policy 9. Teach patient or legal unit support representative interventions for comforting Outcome: Progressing Note: Evaluation of progress towards goal: Pt denies pain thus far this shift. No nonverbal s/sx pain noted. Problem: Safety Goal: Patient will be injury free during hospitalization Description: INTERVENTIONS: 1. Assess patient's risk for falls and implement fall prevention plan of care per policy 2. Provide and maintain a safe environment 3. Proper use of double Identifiers 4. Medication administration using the 5 rights 5. Hand hygiene 6. Specimens are labeled at the bedside 7. Instruct patient/ patient unit support representative about use of safety devices 8. Include patient/ patient unit support representative in decisions related to safety Outcome: Progressing Note: Evaluation of progress towards goal: Remains free from injury. Safety precautions maintained. Problem: Infection Goal: Absence of infection during hospitalization Description: Interventions: 1. Assess and monitor for signs and symptoms of infection 2. Monitor lab/diagnostic results 3. Monitor all insertion sites i.e., indwelling lines, tubes and drains 4. Monitor endotracheal (as able) and nasal secretions for changes in amount and color 5. Administer medications as ordered 6. Instruct and encourage patient and family to use good hand hygiene technique 7. Identify and instruct patient/patient unit support representative in use of appropriate isolation precautions for identified infection/symptoms 8. Provide and discuss with patient/patient unit support representative on educational MDRO sheet 9. Encourage and monitor nutritional status daily and consult healthcare business analyst if indicated 10. Implement neutropenic guidelines as needed 11. Review exposure to history of communicable disease and recent travel history on admission 12. Encourage annual influenza vaccine 13. Encourage pneumonia vaccine Outcome: Progressing Note: Evaluation of progress towards goal: Remains afebrile, repeat labs in am. Problem: Knowledge Deficit Goal: Patient/patient unit support representative demonstrates understanding of disease process, treatment plan, medications, and discharge instructions Description: INTERVENTIONS 1. Complete learning assessment and assess knowledge base 2. Provide teaching at level of understanding 3. Provide teaching via preferred learning method(s) Outcome: Progressing Note: Evaluation of progress towards goal: Plan of care reviewed w/ pt , no questions/concerns voiced. All interventions explained prior to initiating. Pt educated on purpose et side effects of steroids and blood glucose monitoring/ insulin coverage. Pt verbalized understanding. Problem: Low Risk Fall Score Description: Hanson Fall Score of 0 - 24 or indicated by [facility] Assessment Goal: Patient should be free from fall Description: Interventions: 1. [place] to environment 2. Hourly rounds addressing the 4 P's (Pain, Positioning, Possessions, Potty) 3. Clear area of hazards (spills, clutter, electrical cords, unnecessary equipment) 4. Place equipment (bed & TV controls, call light, phone, urinal) within reach 5. Encourage patient to wear glasses and hearing aides as appropriate 6. Maintain bed in lowest position 7. Lock wheels on bed/wheelchair 8. Provide adequate lighting, including night light 9. Assess need for additional bedding, food/fluids, pain med's prior to sleep/routinely 10. Provide gripper slippers or personal non-skid footwear 11. Teach patient and patient unit support representative to maintain environment for safety and engage in all aspects of fall prevention program Outcome: Progressing Note: Evaluation of progress towards goal: Remains free from falls. Appropriate fall precautions implemented/maintained. Pt ambulatory independently w/ steady gait et no assistive devices used. documented in this encounter [facility] 11-14-2023 Progress note Formatting of t his note is different from the original. DISCHARGE PLANNING NOTE 11/14/23 1200 Services Requested Discharge Disposition Home Durable Medical Equipment Home Durable Medical Equipment Name [employer] [facility] [employer] Home Durable Medical Equipment Home Durable Medical Equipment Tasked [facility] to send referral to [employer] for home O2 noting pt needs portability to DC from hospital today. [facility] 11-14-2023 Progress note Formatting of t his note is different from the original. Images from the original note were not included. DISCHARGE PLANNING NOTE 11/14/23 1135 Discharge Disposition Discharge Disposition Home with Self Care County Information County of [facility] Patient Information Primary Caregiver Self Support System Immediate family;Extended family;Friends Stressors Type of stressor (does not endorse) Income Information Income Information Disability Referral To Community Resources Denies needs Discharge Planning Living Arrangements Spouse/significant other Support Systems Spouse/significant other;Children;Family members Assistance Needed has home nebulizer Type of Residence Private residence Private Residence [address] [place] [address] Accessibility Steps into home Number of Steps 1 Home Care Services No Community Agencies Currently Utilized None Patient expects to be discharged to: home Does the patient need discharge transport arranged? No Services Requested: Services Requested Discharge Disposition: Home with self care Initial DC Assessment Completed: Yes DC Planning Complete Discharge Milestones: Yes Patient Goals: Patient/Caregiver Goals Patient/Caregiver Goals: Home No Needs Home No Needs: Caregiver/Family Goals home (pt-stated) Evaluation of progress towards goal: DC to home today Chart reviewed. Pleasant pt agreeable to conversation, introduced self & role of SW; assessment/goals as above. Pt does not endorse alcohol/substance use. Pt does not endorse food insecurity, utilizing SNAP benefit, or financial stressors. Pt is able to afford home medications. Pt has functioning water, heat, cooling & electric in the home. Pt does not endorse any type of domestic abuse. Pt does not endorse anxiety, depression or other mental health concerns. Pt does not endorse self harm; negative [place] screen. Pt provides own transportation. Pt is independent in/out of the home, performs own household tasks, meal preparation & grocery shops. Pt relayed & adult children provide natural supports. Patient's preferred pharmacy is [facility]. PCP verified as ALONZO Sotomayor. Informed pt that RN will be in to check for need for possible home O2 at DC; explained qualifying SPO2. Educated pt on area DME's, pt has no preference & is agreeable to [facility] if home O2 is needed. Pt does not endorse any other current DC needs. Opportunity provided to ask questions, pt does not endorse any at this time. Await home O2 eval. Plan to prevent readmission is for pt to follow up with PCP, pt said she has appointment on Saturday, follow DC instructions including medication compliance and to reach out to health care team as needed. Care Navigation following for safe care transition. [facility] 11-14-2023 Hospital course Narrative Images from the original note were not included. [facility] MD Freddie Vaughn, MD Elías Gupta, MD Juanita Santiago, MD Camden Oconnor, MD Ashlee Walters, MD Lowell Carlisle, MD Alvina Maria, MD Diana Huang, LUKASZ Amanda, LUKASZ Ramirez, LUKASZ Ruvalcaba, LUKASZ Mondragon, LUKASZ Richardson, LUKASZ [place], LUKASZ Real, LUKASZ Montalvo, LUKASZ Pinzon, LUKASZ Nina, LUKASZ Del Rosario, LUKASZ Nichols, LUKASZ Amos, LUKASZ Nix, LUKASZ Rogers, LUKASZ Marin, [employer] Arthur Bower, [facility] Hospital Medicine Discharge Summary Patient: Nikole Banerjee Date of : 1970 Room: 216/01 Encounter date: 11/14/23 DATE OF ADMISSION: 11/08/2023 DATE OF DISCHARGE:11/14/2023 DISCHARGE DIAGNOSES Principal Problem: Acute respiratory failure with hypoxia ([facility]) Active Problems: Urge incontinence of urine Influenza A COPD (chronic obstructive pulmonary disease) ([facility]) Hypokalemia CONSULTANTS None PCP: Angelica Flores PA-C PROCEDURES None HOSPITAL COURSE SUMMARY Per HPI: Nikole Banerjee is a 53 y.o. female who presents with Shortness of Breath Patient presented to ER due to cough dyspnea fever and chills patient does have history of COPD. Patient did have up to 1 or 2 fever at home she did try some Tylenol. Also was having chest tightness and headache. Patient does not use oxygen at home. In ER patient noted to have oxygen saturation of 87%. Was started on nasal cannula oxygen. Patient was positive for influenza in the ER. Chest x-ray noted which does not show any pneumonia. EKG normal sinus rhythm without any acute ST-T wave changes. Patient was requiring up to 6 L per nasal cannula on admission. She was found to have flu a and acute asthma/COPD exacerbation with hypoxia. She did receive full course of Tamiflu while being admitted. She also received high-dose Solu-Medrol steroids and nebulizer treatments. After day 3, patient oxygen requirements still were high demand at 4 L per nasal cannula. Chest x-ray was completed did show multifocal pneumonia. Secondary bacterial pneumonia was treated with Rocephin IV and doxycycline p.o.. Patient completed 3 day of Rocephin and 3 days of doxycycline. Patient will be discharged home with doxycycline for 5 more days as well as long taper prednisone dose. She did also qualify for oxygen continuous. 1 L oxygen ordered for home use. 11/14/23, Hospital Day: 7 Interval History: Status: improved. No overnight events or new complaints. Review of Systems Constitutional: Negative for activity change, appetite change, fatigue and unexpected weight change. HENT: Negative for trouble swallowing. Respiratory: Negative for cough, sputum production, positive for shortness of breath and wheezing. Cardiovascular: Negative for chest pain, palpitations and leg swelling. Gastrointestinal: Negative for abdominal pain, blood in stool, melena, constipation, diarrhea, nausea and vomiting. Genitourinary: Negative for difficulty urinating. Skin: Negative for color change and wound. Neurological: Negative for dizziness, seizures, speech difficulty and headaches. Psychiatric/Behavioral: Negative for sleep disturbance. Physical Exam BP 138/77 Pulse 77 Temp 36.8 C (98.2 F) (Oral) Resp 16 Ht 154.9 cm (5' 1 ) Wt 110.9 kg (244 lb 6.4 oz) SpO2 95% BMI 46.18 kg/m Intake/Output Summary (Last 24 hours) at 11/14/2023 1103 Last data filed at 11/14/2023 0900 Gross per 24 hour Intake 1620 ml Output 1600 ml Net 20 ml Constitutional: General: No acute distress. Cardiovascular: Rate and Rhythm: Normal rate and regular rhythm. Heart sounds: Normal heart sounds, S1 normal and S2 normal. Pulmonary: Oxygen at 1 L per nasal cannula. Effort: Pulmonary effort is normal. Breath sounds: Diminished breath sounds bilaterally. Scattered wheezes noted throughout lung shrestha. Musculoskeletal: Right lower leg: No edema. Left lower leg: No edema. Skin: General: Skin is warm and dry. Coloration: Skin is not pale. Neurological: General: No focal deficit present. Psychiatric: Mood and Affect: Mood normal. Behavior: Behavior normal. Labs Recent Results (from the past 48 hour(s)) Bedside Glucose *Place/Obtain serum glucose if >500(>600 MRH) per glucometer. Collection Time: 11/12/23 11:37 AM Result Value Ref Range Bedside glucose 193 (H) 65 - 99 mg/dL Bedside Glucose *Place/Obtain serum glucose if >500(>600 MRH) per glucometer. Collection Time: 11/12/23 4:06 PM Result Value Ref Range Bedside glucose 137 (H) 65 - 99 mg/dL Lower resp/sputum culture inc gram stain: Patient acquired Collection Time: 11/12/23 7:10 PM Specimen: Sputum Result Value Ref Range Gram Stain Result 10 to 24 WHITE BLOOD CELLS/LPF Gram Stain Result 0 SQUAMOUS EPITHELIAL CELLS/LPF Gram Stain Result 0 CILIATED EPITHELIAL CELLS/LPF Gram Stain Result RARE GRAM POSITIVE COCCI IN PAIRS, CHAINS AND CLUSTERS Culture PENDING Bedside Glucose *Place/Obtain serum glucose if >500(>600 MRH) per glucometer. Collection Time: 11/12/23 9:25 PM Result Value Ref Range Bedside glucose 222 (H) 65 - 99 mg/dL Comprehensive metabolic panel Collection Time: 11/13/23 5:35 AM Result Value Ref Range Sodium 139 134 - 146 mmol/L Potassium, Bld 4.6 3.5 - 5.0 mmol/L Chloride 95 (L) 98 - 109 mmol/L CO2 32 22 - 32 mmol/L Anion gap 12 5 - 15 mmol/L BUN 20 5 - 23 mg/dL Creatinine 0.66 0.40 - 1.00 mg/dL Glucose 226 (H) 65 - 99 mg/dL Calcium 8.9 8.5 - 10.5 mg/dL Total Protein 7.1 6.0 - 8.0 g/dL Albumin 3.1 (L) 3.2 - 5.3 g/dL Alkaline Phosphatase 59 39 - 130 U/L AST 19 0 - 41 U/L ALT 24 0 - 31 U/L Total bilirubin 0.7 0.3 - 1.2 mg/dL eGFR (CKD-EPI)non-race dependent >90 >59 ml/min/1.73sq.m Magnesium Collection Time: 11/13/23 5:35 AM Result Value Ref Range Magnesium 2.0 1.8 - 2.6 mg/dL CBC auto differential Collection Time: 11/13/23 5:35 AM Result Value Ref Range White Blood Cells 12.4 (H) 4.0 - 11.0 X10E9/L RBC count 5.06 3.80 - 5.20 X10E12/L Hemoglobin 14.7 11.7 - 15.5 g/dL Hematocrit 45.8 35 - 47 % MCV 91 80 - 100 fL MCH 29.0 27 - 34 pg MCHC 32.0 32 - 36 g/dL RDW 15.8 (H) 11.5 - 15.0 % Platelets 215 150 - 450 X10E9/L MPV 9.0 7 - 12 fL % neutrophils 80.8 % % lymphocytes 11.7 % % monocytes 7.2 % % eosinophils 0.0 % % Basophils 0.3 % Neutrophils Absolute (A) 10.0 (H) 1.5 - 6.6 X10E9/L Lymphocytes Absolute 1.5 1.0 - 3.5 X10E9/L Monocytes Absolute 0.9 0 - 0.9 X10E9/L Eosinophils Absolute 0.0 0.0 - 0.4 X10E9/L Basophils Absolute 0.0 0.0 - 0.2 X10E9/L Procalcitonin Collection Time: 11/13/23 5:35 AM Result Value Ref Range Procalcitonin <0.05 <0.05 ng/mL Bedside Glucose *Place/Obtain serum glucose if >500(>600 MRH) per glucometer. Collection Time: 11/13/23 8:05 AM Result Value Ref Range Bedside glucose 139 (H) 65 - 99 mg/dL Bedside Glucose *Place/Obtain serum glucose if >500(>600 MRH) per glucometer. Collection Time: 11/13/23 12:20 PM Result Value Ref Range Bedside glucose 121 (H) 65 - 99 mg/dL Bedside Glucose *Place/Obtain serum glucose if >500(>600 MRH) per glucometer. Collection Time: 11/13/23 4:28 PM Result Value Ref Range Bedside glucose 137 (H) 65 - 99 mg/dL Bedside Glucose *Place/Obtain serum glucose if >500(>600 MRH) per glucometer. Collection Time: 11/13/23 8:49 PM Result Value Ref Range Bedside glucose 203 (H) 65 - 99 mg/dL Comprehensive metabolic panel Collection Time: 11/14/23 5:04 AM Result Value Ref Range Sodium 139 134 - 146 mmol/L Potassium, Bld 4.6 3.5 - 5.0 mmol/L Chloride 95 (L) 98 - 109 mmol/L CO2 34 (H) 22 - 32 mmol/L Anion gap 10 5 - 15 mmol/L BUN 22 5 - 23 mg/dL Creatinine 0.72 0.40 - 1.00 mg/dL Glucose 190 (H) 65 - 99 mg/dL Calcium 8.6 8.5 - 10.5 mg/dL Total Protein 7.0 6.0 - 8.0 g/dL Albumin 3.0 (L) 3.2 - 5.3 g/dL Alkaline Phosphatase 58 39 - 130 U/L AST 18 0 - 41 U/L ALT 24 0 - 31 U/L Total bilirubin 0.3 0.3 - 1.2 mg/dL eGFR (CKD-EPI)non-race dependent >90 >59 ml/min/1.73sq.m Magnesium Collection Time: 11/14/23 5:04 AM Result Value Ref Range Magnesium 2.0 1.8 - 2.6 mg/dL CBC auto differential Collection Time: 11/14/23 5:04 AM Result Value Ref Range White Blood Cells 11.8 (H) 4.0 - 11.0 X10E9/L RBC count 4.94 3.80 - 5.20 X10E12/L Hemoglobin 14.5 11.7 - 15.5 g/dL Hematocrit 44.7 35 - 47 % MCV 91 80 - 100 fL MCH 29.3 27 - 34 pg MCHC 32.4 32 - 36 g/dL RDW 15.9 (H) 11.5 - 15.0 % Platelets 255 150 - 450 X10E9/L MPV 9.0 7 - 12 fL Myelocyte 1.0 % Band 4.0 % Seg neutrophil 76.0 % Lymphocyte 6.0 % Monocytes 11.0 % Lymphocyte, atypical 2.0 % Neutrophils Absolute (M) 9.5 (H) 1.5 - 6.6 X10E9/L Lymphocytes Absolute 0.9 (L) 1.0 - 3.5 X10E9/L Monocytes Absolute 1.3 (H) 0 - 0.9 X10E9/L RBC Morphology NORMAL Bedside Glucose *Place/Obtain serum glucose if >500(>600 MRH) per glucometer. Collection Time: 11/14/23 8:03 AM Result Value Ref Range Bedside glucose 116 (H) 65 - 99 mg/dL Radiology X-ray chest 2 views Result Date: 11/11/2023 Narrative: Procedure: Chest x-ray performed Number of views:PA and lateral History:Hypoxia influenza Comparison:11/08/2023 Findings: The heart and mediastinal silhouette are stable there are multifocal bilateral airspace opacities. No pleural effusions are seen. There is no pneumothorax Impression: Multifocal bilateral airspace opacities consistent with pneumonia Finalized by Christine Sweeney DO on 11/11/2023 6:31 PM X-ray chest 1 view Result Date: 11/08/2023 Narrative: Procedure: Chest x-ray performed Number of views:AP portable History:Shortness of breath Comparison:09/11/2023 Findings: The heart and lungs show no acute findings, and the mediastinum and brandon are grossly negative . Impression: No acute change. Finalized by Christine Sweeney DO on 11/08/2023 2:44 PM Colonoscopy Report Result Date: 10/17/2023 Narrative: This order has been auto-finalized for image and report archival in PACs. *For full report details, please reach out to your physician. This image is visible to you in MyChart.* DISCHARGE ASSESSMENT & PLAN Doxycycline b.i.d. for 5 days. Prednisone long taper. Continue home inhalers and nebulizers. Home oxygen ordered. Patient had a home O2 evaluation completed today. Oxygen needed at rest. Patient did drop to 87% at rest. She became short of breath. Oxygen was placed on at 1 L per nasal cannula and patient came up 94%. Otan-iv-tlgb evaluation was completed today. Home O2 evaluation noted. Patient will need a concentrator and portable oxygen concentrator as she is mobile in her home in order to maintain her saturations greater than 90% secondary to COPD and pneumonia. Patient requiring 2 L with activity. DISCHARGE INSTRUCTION Disposition: Home Condition: Good Activity: activity as tolerated Diet: Adult diet Regular Texture; Low Fat/Low Cholesterol Adult diet Follow up: Angelica Flores PA-C within 7-14 days. Labs/Imaging/Pathology: Discharge Medications: Medication List START taking these medications Instructions Last Dose Given Next Dose Due doxycycline 100 mg tablet Commonly known as: VIBRA-TABS Take 1 tablet (100 mg total) by mouth in the morning and 1 tablet (100 mg total) before bedtime. Do all this for 5 days. predniSONE 10 mg tablet Commonly known as: DELTASONE Start taking on: November 14, 2023 Take 4 tablets (40 mg total) by mouth daily for 4 days, THEN 3 tablets (30 mg total) daily for 4 days, THEN 2 tablets (20 mg total) daily for 4 days, THEN 1 tablet (10 mg total) daily for 4 days. CONTINUE taking these medications Instructions Last Dose Given Next Dose Due acetaminophen 650 mg 8 hr tablet Commonly known as: TYLENOL ARTHRITIS Take 1 tablet (650 mg total) by mouth every 8 (eight) hours as needed for pain. albuterol 90 mcg/actuation inhaler Commonly known as: PROVENTIL HFA;VENTOLIN HFA Inhale 2 puffs every 6 (six) hours as needed for wheezing. aspirin 325 mg EC tablet Take 1 tablet (325 mg total) by mouth in the morning. Circulation, high risk for blood clots. CALCIUM 600 + D(3) 600 mg-10 mcg (400 unit) per tablet Generic drug: calcium carbonate-vitamin D3 Take 1 tablet by mouth in the morning. Indications: prevention of vitamin D deficiency. DULERA 100-5 mcg/actuation inhaler Generic drug: mometasone-formoterol Inhale 2 puffs in the morning and 2 puffs before bedtime. Indications: controller medication for asthma. DULoxetine 60 mg capsule Commonly known as: CYMBALTA Take 1 capsule (60 mg total) by mouth in the morning. Indications: neuropathic pain. loratadine 10 mg tablet Commonly known as: CLARITIN Take 1 tablet (10 mg total) by mouth nightly Indications: inflammation of the nose due to an allergy. montelukast 10 mg tablet Commonly known as: SINGULAIR Take 1 tablet (10 mg total) by mouth nightly Indications: controller medication for asthma. omeprazole 40 mg capsule Commonly known as: PriLOSEC Take 1 capsule (40 mg total) by mouth in the morning. Indications: gastroesophageal reflux disease. ondansetron 4 mg tablet Commonly known as: ZOFRAN Take 1 tablet (4 mg total) by mouth every 6 (six) hours as needed for nausea or vomiting for up to 20 doses. oxybutynin XL 5 mg 24 hr tablet Commonly known as: DITROPAN-XL Take 1 tablet (5 mg total) by mouth in the morning. therapeutic multivitamin tablet Commonly known as: THERAGRAN Take 1 tablet by mouth in the morning. Indications: treatment to prevent vitamin deficiency. Where to Get Your Medications These medications were sent to [facility] [address] [place] [address] [address] [place] [address] [address] doxycycline 100 mg tablet predniSONE 10 mg tablet >30 minutes were spent on discharging this patient. TY Beard, 11/14/2023 11:03 AM [facility] Hospital[facility] 7AM-7PM: Message rounding SIDNEY in [employer] or page through [employer]. 7PM-7AM: Page on-call SIDNEY through our answering service, . This note is dictated with the use of M*Modal. Please note that this dictation was completed with computer voice recognition software. Quite often unanticipated grammatical, syntax, homophones, and other interpretive errors are inadvertently transcribed by the computer software. Please disregard these errors. Please excuse any errors that have escaped final proofreading. TY Beard 11/14/23 1108 Physician Attestation: I have reviewed the above note authored by the Advance Practice Provider (SIDNEY) including history, review of systems, physical examination, medical decision making and agree with the assessment & plan. I have personally performed a face to face diagnostic evaluation on this patient. I have reviewed all laboratory findings and imaging reports/films. I have independently evaluated the patient and repeated mendoza portions of the physical exam. I agree with the SIDNEY plan as above, unless otherwise noted. RE MCCARTHY MD documented in this encounter [facility] 11-14-2023 Plan of care note Problem: Pain Goal: Patient goal is pain score less than 4, able to rest, and participant in treatment plan as appropriate Description: INTERVENTIONS: 1. Encourage patient or legal unit support representative to report early pain and ask for pain medicine when needed 2. Assess pain using appropriate pain scale and include the scale used when documenting 3. Administer analgesics based on type and severity of pain and evaluate response within appropriate time frame 4. Implement non-pharmacological measures as appropriate and evaluate response 5. Consider cultural and social influences on pain and pain management 6. Notify LIP if interventions ineffective or patient reports new pain 7. Monitor vital signs including pulse ox, end-tidal CO2 based on pain intervention 8. Reassess pain per policy 9. Teach patient or legal unit support representative interventions for comforting Outcome: Progressing Note: Evaluation of progress towards goal: Pt able to report pain according to 0/10 pain scale. Medicating patient for pain per orders. [facility] 11-14-2023 Plan of care note Problem: Inadequate Gas Exchange Goal: Patient is adequately oxygenated and ventilation is improved Description: Patient's goal is: INTERVENTIONS 1. Monitor vital signs, oxygen saturation, respiratory status to include rate, depth, effort, lung sounds, mental status, cyanosis, and labs (ABGs) 2. Administer oxygen as indicated 3. Position patient to optimize gas exchange 4. Instruct patient to turn, cough, and deep breathe; encourage incentive spirometer if indicated 5. Collaborate with Respiratory Therapy for inhaled medication and therapeutic adjuncts 6. Assess skin when indicated 7. Coordinate care and interventions to conserve energy 8. Educate and offer resources for tobacco cessation, if indicated Note: Evaluation of progress towards goal: 11/14/23 0740 Vital Signs Pulse 68 Heart Rate Source Monitor Resp 18 O2 Device Nasal cannula O2 Flow Rate (L/min) 1 L/min Patient Position [place] Respiratory Assessment Assessment Type Pre-treatment;Post-treatment Level of Consciousness Alert Respiratory Pattern Regular;Shallow Chest Assessment Chest expansion symmetrical Bilateral Breath Sounds Expiratory wheezes;Crackles/Rales;Diminishe d Location Specific No Inhalation Therapy Delivery Source Oxygen Device Nebulizer Duration (Minutes) 10 Position High [facility] [employer] [facility] 11-14-2023 Plan of care note Problem: Pain Goal: Patient goal is pain score less than 4, able to rest, and participant in treatment plan as appropriate Description: INTERVENTIONS: 1. Encourage patient or legal unit support representative to report early pain and ask for pain medicine when needed 2. Assess pain using appropriate pain scale and include the scale used when documenting 3. Administer analgesics based on type and severity of pain and evaluate response within appropriate time frame 4. Implement non-pharmacological measures as appropriate and evaluate response 5. Consider cultural and social influences on pain and pain management 6. Notify LIP if interventions ineffective or patient reports new pain 7. Monitor vital signs including pulse ox, end-tidal CO2 based on pain intervention 8. Reassess pain per policy 9. Teach patient or legal unit support representative interventions for comforting Outcome: Adequate for Discharge Note: Evaluation of progress towards goal: pt denies pain Problem: Infection Goal: Absence of infection during hospitalization Description: Interventions: 1. Assess and monitor for signs and symptoms of infection 2. Monitor lab/diagnostic results 3. Monitor all insertion sites i.e., indwelling lines, tubes and drains 4. Monitor endotracheal (as able) and nasal secretions for changes in amount and color 5. Administer medications as ordered 6. Instruct and encourage patient and family to use good hand hygiene technique 7. Identify and instruct patient/patient unit support representative in use of appropriate isolation precautions for identified infection/symptoms 8. Provide and discuss with patient/patient unit support representative on educational MDRO sheet 9. Encourage and monitor nutritional status daily and consult healthcare business analyst if indicated 10. Implement neutropenic guidelines as needed 11. Review exposure to history of communicable disease and recent travel history on admission 12. Encourage annual influenza vaccine 13. Encourage pneumonia vaccine Outcome: Progressing Note: Evaluation of progress towards goal: pt remains afebrile. Pt is administered antibiotics as per physician orders.And completed Tamiflu. Problem: Respiratory - Adult Goal: Achieves optimal ventilation and oxygenation Description: Patient's goal is: INTERVENTIONS: 1. Assess for changes in respiratory status 2. Assess for changes in mentation and behavior 3. Position to facilitate oxygenation and minimize respiratory effort 4. Oxygen supplementation based on oxygen saturation or ABGs as ordered 5. Consult smoking cessation as indicated 6. Encourage broncho-pulmonary hygiene including cough, deep breathe, Incentive Spirometry, keep HOB elevated as tolerated, and encourage ambulation, as ordered 7. Assess the need for suctioning and obtain order to maintain clear airway 8. Assess and instruct patient to report SOB or any respiratory difficulty 9. Assess the need for Respiratory Therapy support if not already ordered 10. Initiate emergency measures for respiratory failure Outcome: Progressing Note: Evaluation of progress towards goal: pt is weaned down to I liter via nasal canula. Pt did qualify for home oxygen at 1 liter. [facility] 11-13-2023 Progress note Formatting of t his note is different from the original. 11/13/232026 Home Oxygen Qualification - Resting Method *Complete within 48 Hrs of Discharge SpO2 On Room Air At Rest 87 % (85-87%) Amount Of O2 Applied At Rest To Keep SpO2 >88% 1 L/min SpO2 On Applied O2 At Rest 92 % Pt was resting in bed. Attempt to wean oxygen off. Patient oxygen saturations decrease to 85-87% on room air. Oxygen applied at 1 Liter via Nasal Cannula and oxygen saturations improved to 92%. [facility] 11-13-2023 Plan of care note Problem: Multi-Drug Resistant Organism / Rule-Out Infection Prevention Goal: Prevent transmission of infection Description: INTERVENTIONS 1. Place patient in private room or in room with patient with same disease 2. Discard single-use items 3. Clean reusable equipment between patients 4. Wear gloves for direct and indirect contact with patient or contaminants 5. Change gloves between tasks and procedures 6. Wash hands before and after caring for each patient 7. Wear appropriate personal protective equipment in relation to the indicated isolation type 8. Place appropriate isolation signage on patient's door 9. Provide patient/ patient unit support representative with isolation education. Outcome: Progressing Note: Evaluation of progress towards goal: Patient VS WNL, remains afebrile for shift. Continue to monitor. [facility] 11-13-2023 Plan of care note Problem: Inadequate Gas Exchange Goal: Patient is adequately oxygenated and ventilation is improved Description: Patient's goal is: INTERVENTIONS 1. Monitor vital signs, oxygen saturation, respiratory status to include rate, depth, effort, lung sounds, mental status, cyanosis, and labs (ABGs) 2. Administer oxygen as indicated 3. Position patient to optimize gas exchange 4. Instruct patient to turn, cough, and deep breathe; encourage incentive spirometer if indicated 5. Collaborate with Respiratory Therapy for inhaled medication and therapeutic adjuncts 6. Assess skin when indicated 7. Coordinate care and interventions to conserve energy 8. Educate and offer resources for tobacco cessation, if indicated Note: Evaluation of progress towards goal: 11/13/23 0723 Vital Signs Pulse 62 Heart Rate Source Monitor Resp 18 SpO2 93 % O2 Device Nasal cannula O2 Flow Rate (L/min) 1 L/min Respiratory Assessment Assessment Type Pre-treatment Level of Consciousness Alert Respiratory Pattern Regular Chest Assessment Chest expansion symmetrical Bilateral Breath Sounds Diminished;Expiratory wheezes R Breath Sounds Diminished;Expiratory wheezes L Breath Sounds Diminished;Expiratory wheezes Location Specific No Inhalation Therapy Delivery Source Oxygen Device Nebulizer Duration (Minutes) 10 Position [facility] 11-13-2023 Plan of care note Problem: Pain Goal: Patient goal is pain score less than 4, able to rest, and participant in treatment plan as appropriate Description: INTERVENTIONS: 1. Encourage patient or legal unit support representative to report early pain and ask for pain medicine when needed 2. Assess pain using appropriate pain scale and include the scale used when documenting 3. Administer analgesics based on type and severity of pain and evaluate response within appropriate time frame 4. Implement non-pharmacological measures as appropriate and evaluate response 5. Consider cultural and social influences on pain and pain management 6. Notify LIP if interventions ineffective or patient reports new pain 7. Monitor vital signs including pulse ox, end-tidal CO2 based on pain intervention 8. Reassess pain per policy 9. Teach patient or legal unit support representative interventions for comforting Outcome: Adequate for Discharge Note: Evaluation of progress towards goal: pt denies pain Problem: Infection Goal: Absence of infection during hospitalization Description: Interventions: 1. Assess and monitor for signs and symptoms of infection 2. Monitor lab/diagnostic results 3. Monitor all insertion sites i.e., indwelling lines, tubes and drains 4. Monitor endotracheal (as able) and nasal secretions for changes in amount and color 5. Administer medications as ordered 6. Instruct and encourage patient and family to use good hand hygiene technique 7. Identify and instruct patient/patient unit support representative in use of appropriate isolation precautions for identified infection/symptoms 8. Provide and discuss with patient/patient unit support representative on educational MDRO sheet 9. Encourage and monitor nutritional status daily and consult healthcare business analyst if indicated 10. Implement neutropenic guidelines as needed 11. Review exposure to history of communicable disease and recent travel history on admission 12. Encourage annual influenza vaccine 13. Encourage pneumonia vaccine Outcome: Progressing Note: Evaluation of progress towards goal: pt remains afebrile. Pt is administered antibiotics as per physician orders as well as tamiflu. Problem: Respiratory - Adult Goal: Achieves optimal ventilation and oxygenation Description: Patient's goal is: INTERVENTIONS: 1. Assess for changes in respiratory status 2. Assess for changes in mentation and behavior 3. Position to facilitate oxygenation and minimize respiratory effort 4. Oxygen supplementation based on oxygen saturation or ABGs as ordered 5. Consult smoking cessation as indicated 6. Encourage broncho-pulmonary hygiene including cough, deep breathe, Incentive Spirometry, keep HOB elevated as tolerated, and encourage ambulation, as ordered 7. Assess the need for suctioning and obtain order to maintain clear airway 8. Assess and instruct patient to report SOB or any respiratory difficulty 9. Assess the need for Respiratory Therapy support if not already ordered 10. Initiate emergency measures for respiratory failure Outcome: Progressing Note: Evaluation of progress towards goal: pt is weaned down to 2 liters through the night. Pt states she is experiencing no dyspnea any longer. Respirations are easy and regular. [facility] 11-12-2023 Plan of care note Problem: Pain Goal: Patient goal is pain score less than 4, able to rest, and participant in treatment plan as appropriate Description: INTERVENTIONS: 1. Encourage patient or legal unit support representative to report early pain and ask for pain medicine when needed 2. Assess pain using appropriate pain scale and include the scale used when documenting 3. Administer analgesics based on type and severity of pain and evaluate response within appropriate time frame 4. Implement non-pharmacological measures as appropriate and evaluate response 5. Consider cultural and social influences on pain and pain management 6. Notify LIP if interventions ineffective or patient reports new pain 7. Monitor vital signs including pulse ox, end-tidal CO2 based on pain intervention 8. Reassess pain per policy 9. Teach patient or legal unit support representative interventions for comforting Outcome: Progressing Note: Evaluation of progress towards goal: pt able to verbalize adequate comfort level Problem: Safety Goal: Patient will be injury free during hospitalization Description: INTERVENTIONS: 1. Assess patient's risk for falls and implement fall prevention plan of care per policy 2. Provide and maintain a safe environment 3. Proper use of double Identifiers 4. Medication administration using the 5 rights 5. Hand hygiene 6. Specimens are labeled at the bedside 7. Instruct patient/ patient unit support representative about use of safety devices 8. Include patient/ patient unit support representative in decisions related to safety Outcome: Progressing Note: Evaluation of progress towards goal: pt remains free from injury [facility] 11-12-2023 Plan of care note Problem: Inadequate Gas Exchange Goal: Patient is adequately oxygenated and ventilation is improved Description: Patient's goal is: INTERVENTIONS 1. Monitor vital signs, oxygen saturation, respiratory status to include rate, depth, effort, lung sounds, mental status, cyanosis, and labs (ABGs) 2. Administer oxygen as indicated 3. Position patient to optimize gas exchange 4. Instruct patient to turn, cough, and deep breathe; encourage incentive spirometer if indicated 5. Collaborate with Respiratory Therapy for inhaled medication and therapeutic adjuncts 6. Assess skin when indicated 7. Coordinate care and interventions to conserve energy 8. Educate and offer resources for tobacco cessation, if indicated Note: Evaluation of progress towards goal: 11/12/23 0751 Vital Signs Pulse 58 Heart Rate Source Monitor Resp 22 SpO2 90 % O2 Device Nasal cannula O2 Flow Rate (L/min) 4 L/min Patient Position [place] Respiratory Assessment Assessment Type Pre-treatment;Post-treatment Level of Consciousness Alert Respiratory Pattern Regular Chest Assessment Chest expansion symmetrical Bilateral Breath Sounds Expiratory wheezes Location Specific No Inhalation Therapy Delivery Source Oxygen Device Nebulizer Duration (Minutes) 10 Position [facility] 11-12-2023 Plan of care note Problem: Pain Goal: Patient goal is pain score less than 4, able to rest, and participant in treatment plan as appropriate Description: INTERVENTIONS: 1. Encourage patient or legal unit support representative to report early pain and ask for pain medicine when needed 2. Assess pain using appropriate pain scale and include the scale used when documenting 3. Administer analgesics based on type and severity of pain and evaluate response within appropriate time frame 4. Implement non-pharmacological measures as appropriate and evaluate response 5. Consider cultural and social influences on pain and pain management 6. Notify LIP if interventions ineffective or patient reports new pain 7. Monitor vital signs including pulse ox, end-tidal CO2 based on pain intervention 8. Reassess pain per policy 9. Teach patient or legal unit support representative interventions for comforting Outcome: Progressing Note: Evaluation of progress towards goal: Pain assessed and treated accordingly. Problem: Safety Goal: Patient will be injury free during hospitalization Description: INTERVENTIONS: 1. Assess patient's risk for falls and implement fall prevention plan of care per policy 2. Provide and maintain a safe environment 3. Proper use of double Identifiers 4. Medication administration using the 5 rights 5. Hand hygiene 6. Specimens are labeled at the bedside 7. Instruct patient/ patient unit support representative about use of safety devices 8. Include patient/ patient unit support representative in decisions related to safety Outcome: Progressing Note: Evaluation of progress towards goal: PT is free of falls, hourly rounding is completed, area is kept clear. Problem: Infection Goal: Absence of infection during hospitalization Description: Interventions: 1. Assess and monitor for signs and symptoms of infection 2. Monitor lab/diagnostic results 3. Monitor all insertion sites i.e., indwelling lines, tubes and drains 4. Monitor endotracheal (as able) and nasal secretions for changes in amount and color 5. Administer medications as ordered 6. Instruct and encourage patient and family to use good hand hygiene technique 7. Identify and instruct patient/patient unit support representative in use of appropriate isolation precautions for identified infection/symptoms 8. Provide and discuss with patient/patient unit support representative on educational MDRO sheet 9. Encourage and monitor nutritional status daily and consult healthcare business analyst if indicated 10. Implement neutropenic guidelines as needed 11. Review exposure to history of communicable disease and recent travel history on admission 12. Encourage annual influenza vaccine 13. Encourage pneumonia vaccine Outcome: Progressing Note: Evaluation of progress towards goal: Pt assessed and monitored for signs and symptoms of infection, lab and diagnostic results monitored as needed, administer medications as needed. Problem: Knowledge Deficit Goal: Patient/patient unit support representative demonstrates understanding of disease process, treatment plan, medications, and discharge instructions Description: INTERVENTIONS 1. Complete learning assessment and assess knowledge base 2. Provide teaching at level of understanding 3. Provide teaching via preferred learning method(s) Outcome: Progressing Note: Evaluation of progress towards goal: Learning assessment and knowledge base assessed, teaching provided at an understandable level as needed. Problem: Discharge Planning Goal: Discharge to post-acute care, other facility, or home with appropriate resources Description: Patient's goal is: INTERVENTIONS 1. Conduct assessment to determine patient/family and health care team treatment goals, and need for post-acute services based on payer coverage, community resources, and patient preferences, and barriers to discharge 2. Coordinate with Social work, Care Navigation, and Utilization Review to arrange appropriate level of services according to patient's needs based on patient preference and payer coverage in collaboration with the physician and health care team 3. Address psychosocial, clinical, and financial barriers to discharge as identified in assessment in conjunction with the patient/family and health care team 4. Consult appropriate ancillary services (i.e.. PT/OT/ST, etc) as needed 5. Communicate with and update the patient/family, physician, and health care team regarding progress on the discharge plan 6. Identify discharge learning needs (meds, wound care, etc). 7. Arrange for needed discharge transportation as appropriate Outcome: Progressing Note: Evaluation of progress towards goal: Pt discharge initiated with attending provider, Pt/Family communicated with and updated regarding process on discharge as needed. [facility] 11-11-2023 Plan of care note Problem: Inadequate Gas Exchange Goal: Patient is adequately oxygenated and ventilation is improved Description: Patient's goal is: INTERVENTIONS 1. Monitor vital signs, oxygen saturation, respiratory status to include rate, depth, effort, lung sounds, mental status, cyanosis, and labs (ABGs) 2. Administer oxygen as indicated 3. Position patient to optimize gas exchange 4. Instruct patient to turn, cough, and deep breathe; encourage incentive spirometer if indicated 5. Collaborate with Respiratory Therapy for inhaled medication and therapeutic adjuncts 6. Assess skin when indicated 7. Coordinate care and interventions to conserve energy 8. Educate and offer resources for tobacco cessation, if indicated Note: Evaluation of progress towards goal: 11/11/232029 Vital Signs Pulse 76 Heart Rate Source Monitor Resp 22 SpO2 92 % O2 Device Nasal cannula O2 Flow Rate (L/min) 4 L/min Patient Position Sitting Respiratory Assessment Assessment Type Pre-treatment Level of Consciousness Alert Respiratory Pattern Regular Chest Assessment Chest expansion symmetrical Bilateral Breath Sounds Expiratory wheezes;Diminished R Breath Sounds Expiratory wheezes;Diminished L Breath Sounds Expiratory wheezes;Diminished Location Specific No Inhalation Therapy Delivery Source Oxygen Device Nebulizer Duration (Minutes) 10 Position Up [facility]-11-[facility]23 Note Procedure: Chest x-ray performed Number of views:PA and lateral History:Hypoxia influenza Comparison:11/08/2023 Findings: The heart and mediastinal silhouette are stable there are multifocal bilateral airspace opacities. No pleural effusions are seen. There is no pneumothorax Impression: Multifocal bilateral airspace opacities consistent with pneumonia Finalized by Christine Sweeney DO on 11/11/2023 6:31 PM [facility] 11-11-2023 Plan of care note Problem: Pain Goal: Patient goal is pain score less than 4, able to rest, and participant in treatment plan as appropriate Description: INTERVENTIONS: 1. Encourage patient or legal unit support representative to report early pain and ask for pain medicine when needed 2. Assess pain using appropriate pain scale and include the scale used when documenting 3. Administer analgesics based on type and severity of pain and evaluate response within appropriate time frame 4. Implement non-pharmacological measures as appropriate and evaluate response 5. Consider cultural and social influences on pain and pain management 6. Notify LIP if interventions ineffective or patient reports new pain 7. Monitor vital signs including pulse ox, end-tidal CO2 based on pain intervention 8. Reassess pain per policy 9. Teach patient or legal unit support representative interventions for comforting Outcome: Progressing Note: Evaluation of progress towards goal: pt able to verbalize adequate comfort level Problem: Safety Goal: Patient will be injury free during hospitalization Description: INTERVENTIONS: 1. Assess patient's risk for falls and implement fall prevention plan of care per policy 2. Provide and maintain a safe environment 3. Proper use of double Identifiers 4. Medication administration using the 5 rights 5. Hand hygiene 6. Specimens are labeled at the bedside 7. Instruct patient/ patient unit support representative about use of safety devices 8. Include patient/ patient unit support representative in decisions related to safety Outcome: Progressing Note: Evaluation of progress towards goal: pt remains free from injury [facility] 11-11-2023 Plan of care note Problem: Moderate - High Risk Fall Score Description: [place] Fall Score of =/> 25 or indicated by [facility] Assessment Goal: Patient should be free from fall Description: Interventions: 1. [place] to environment 2. Hourly rounds addressing the 4 P's (Pain, Positioning, Possessions, Potty) 3. Clear area of hazards (spills, clutter, electrical cords, unnecessary equipment) 4. Place equipment (bed & TV controls, call light, phone, urinal) within reach 5. Encourage patient to wear glasses and hearing aides as appropriate 6. Maintain bed in lowest position 7. Lock wheels on bed/wheelchair 8. Provide adequate lighting, including night light 9. Assess need for additional bedding, food/fluids, pain med's prior to sleep/routinely 10. Provide gripper slippers or personal non-skid footwear 11. Teach patient and patient unit support representative to maintain environment for safety and engage in all aspects of fall prevention program 12. Remind patient to call for help before getting out of bed 13. Initiate bed/chair/exit alarms supportive devices as appropriate, (chair wedge, no-skid floor mat, raised edge mattress, hip protectors) 14. Locate patient bed assignment for optimal visualization 15. Evaluate and identify Safe Patient Handling Equipment needs 16. Provide supervision when out of bed or chair 17. Utilize gait belt as needed to assist with ambulation 18. Place adaptive equipment (cane, walker) within reach 19. Request patient unit support representative bring adaptive equipment/mobility aids from home or obtain and provide as needed 20. Consult pharmacy regarding effects of med's affecting mobility, cognition, and alternatives 21. Obtain physician order for PT if risk factors associated with mobility are present 22. Obtain physician order for OT as appropriate 23. Utilize diversional activities 24. Educate patient and patient unit support representative how to maintain a safe environment during visitation times (notify nurse prior to leaving bedside) 25. Consider appropriateness of medical or non-clinical laboratory medical director 26. Set up voiding schedule as appropriate (every 2 hours) Outcome: Progressing Note: Evaluation of progress towards goal: Pt remains free from falls or accidental injury during stay. Fall prevention measures in place. Hourly rounding per RN and maintained. [facility] 11-10-2023 Plan of care note Problem: Pain Goal: Patient goal is pain score less than 4, able to rest, and participant in treatment plan as appropriate Description: INTERVENTIONS: 1. Encourage patient or legal unit support representative to report early pain and ask for pain medicine when needed 2. Assess pain using appropriate pain scale and include the scale used when documenting 3. Administer analgesics based on type and severity of pain and evaluate response within appropriate time frame 4. Implement non-pharmacological measures as appropriate and evaluate response 5. Consider cultural and social influences on pain and pain management 6. Notify LIP if interventions ineffective or patient reports new pain 7. Monitor vital signs including pulse ox, end-tidal CO2 based on pain intervention 8. Reassess pain per policy 9. Teach patient or legal unit support representative interventions for comforting Outcome: Progressing Note: Evaluation of progress towards goal: pt able to verbalize adequate comfort level Problem: Safety Goal: Patient will be injury free during hospitalization Description: INTERVENTIONS: 1. Assess patient's risk for falls and implement fall prevention plan of care per policy 2. Provide and maintain a safe environment 3. Proper use of double Identifiers 4. Medication administration using the 5 rights 5. Hand hygiene 6. Specimens are labeled at the bedside 7. Instruct patient/ patient unit support representative about use of safety devices 8. Include patient/ patient unit support representative in decisions related to safety Outcome: Progressing Note: Evaluation of progress towards goal: pt remains free from injury [facility] 11-10-2023 Plan of care note Problem: Inadequate Gas Exchange Goal: Patient is adequately oxygenated and ventilation is improved Description: Patient's goal is: INTERVENTIONS 1. Monitor vital signs, oxygen saturation, respiratory status to include rate, depth, effort, lung sounds, mental status, cyanosis, and labs (ABGs) 2. Administer oxygen as indicated 3. Position patient to optimize gas exchange 4. Instruct patient to turn, cough, and deep breathe; encourage incentive spirometer if indicated 5. Collaborate with Respiratory Therapy for inhaled medication and therapeutic adjuncts 6. Assess skin when indicated 7. Coordinate care and interventions to conserve energy 8. Educate and offer resources for tobacco cessation, if indicated Note: Evaluation of progress towards goal: 11/10/23 0803 Vital Signs Pulse 81 Heart Rate Source Monitor Resp 18 SpO2 92 % O2 Device Nasal cannula O2 Flow Rate (L/min) 5 L/min Respiratory Assessment Assessment Type Pre-treatment Level of Consciousness Alert Respiratory Pattern Regular Chest Assessment Chest expansion symmetrical R Breath Sounds Diminished;Expiratory wheezes L Breath Sounds Expiratory wheezes;Diminished Location Specific No Inhalation Therapy Delivery Source Oxygen Device Nebulizer Duration (Minutes) 10 Position [facility] [employer] 11-10-2023 Plan of care note Problem: Pain Goal: Patient goal is pain score less than 4, able to rest, and participant in treatment plan as appropriate Description: INTERVENTIONS: 1. Encourage patient or legal unit support representative to report early pain and ask for pain medicine when needed 2. Assess pain using appropriate pain scale and include the scale used when documenting 3. Administer analgesics based on type and severity of pain and evaluate response within appropriate time frame 4. Implement non-pharmacological measures as appropriate and evaluate response 5. Consider cultural and social influences on pain and pain management 6. Notify LIP if interventions ineffective or patient reports new pain 7. Monitor vital signs including pulse ox, end-tidal CO2 based on pain intervention 8. Reassess pain per policy 9. Teach patient or legal unit support representative interventions for comforting Outcome: Progressing Note: Evaluation of progress towards goal: No c/o pain voiced, no nonverbal s/sx pain noted. Problem: Safety Goal: Patient will be injury free during hospitalization Description: INTERVENTIONS: 1. Assess patient's risk for falls and implement fall prevention plan of care per policy 2. Provide and maintain a safe environment 3. Proper use of double Identifiers 4. Medication administration using the 5 rights 5. Hand hygiene 6. Specimens are labeled at the bedside 7. Instruct patient/ patient unit support representative about use of safety devices 8. Include patient/ patient unit support representative in decisions related to safety Note: Evaluation of progress towards goal: Remains free from injury. Safety precautions maintained. Problem: Infection Goal: Absence of infection during hospitalization Description: Interventions: 1. Assess and monitor for signs and symptoms of infection 2. Monitor lab/diagnostic results 3. Monitor all insertion sites i.e., indwelling lines, tubes and drains 4. Monitor endotracheal (as able) and nasal secretions for changes in amount and color 5. Administer medications as ordered 6. Instruct and encourage patient and family to use good hand hygiene technique 7. Identify and instruct patient/patient unit support representative in use of appropriate isolation precautions for identified infection/symptoms 8. Provide and discuss with patient/patient unit support representative on educational MDRO sheet 9. Encourage and monitor nutritional status daily and consult healthcare business analyst if indicated 10. Implement neutropenic guidelines as needed 11. Review exposure to history of communicable disease and recent travel history on admission 12. Encourage annual influenza vaccine 13. Encourage pneumonia vaccine Outcome: Progressing Note: Evaluation of progress towards goal: No s/sx infection noted. Problem: Knowledge Deficit Goal: Patient/patient unit support representative demonstrates understanding of disease process, treatment plan, medications, and discharge instructions Description: INTERVENTIONS 1. Complete learning assessment and assess knowledge base 2. Provide teaching at level of understanding 3. Provide teaching via preferred learning method(s) Outcome: Progressing Note: Evaluation of progress towards goal: Plan of care reviewed, all interventions explained prior to initiating. Problem: Low Risk Fall Score Description: Hanson Fall Score of 0 - 24 or indicated by [facility] Assessment Goal: Patient should be free from fall Description: Interventions: 1. [place] to environment 2. Hourly rounds addressing the 4 P's (Pain, Positioning, Possessions, Potty) 3. Clear area of hazards (spills, clutter, electrical cords, unnecessary equipment) 4. Place equipment (bed & TV controls, call light, phone, urinal) within reach 5. Encourage patient to wear glasses and hearing aides as appropriate 6. Maintain bed in lowest position 7. Lock wheels on bed/wheelchair 8. Provide adequate lighting, including night light 9. Assess need for additional bedding, food/fluids, pain med's prior to sleep/routinely 10. Provide gripper slippers or personal non-skid footwear 11. Teach patient and patient unit support representative to maintain environment for safety and engage in all aspects of fall prevention program Outcome: Progressing Note: Evaluation of progress towards goal: Remains free from falls. Fall precautions maintained. Problem: Respiratory - Adult Goal: Achieves optimal ventilation and oxygenation Description: Patient's goal is: INTERVENTIONS: 1. Assess for changes in respiratory status 2. Assess for changes in mentation and behavior 3. Position to facilitate oxygenation and minimize respiratory effort 4. Oxygen supplementation based on oxygen saturation or ABGs as ordered 5. Consult smoking cessation as indicated 6. Encourage broncho-pulmonary hygiene including cough, deep breathe, Incentive Spirometry, keep HOB elevated as tolerated, and encourage ambulation, as ordered 7. Assess the need for suctioning and obtain order to maintain clear airway 8. Assess and instruct patient to report SOB or any respiratory difficulty 9. Assess the need for Respiratory Therapy support if not already ordered 10. Initiate emergency measures for respiratory failure Outcome: Progressing Note: Evaluation of progress towards goal: Pt increased to 5lpm NC d/t sats 88-89%, 02 sats 90-95% w/ 5lpm. No distress noted. Pt occasionally expectorating thick pale yellow phlegm. [facility] 11-09-2023 Plan of care note Problem: Pain Goal: Patient goal is pain score less than 4, able to rest, and participant in treatment plan as appropriate Description: INTERVENTIONS: 1. Encourage patient or legal unit support representative to report early pain and ask for pain medicine when needed 2. Assess pain using appropriate pain scale and include the scale used when documenting 3. Administer analgesics based on type and severity of pain and evaluate response within appropriate time frame 4. Implement non-pharmacological measures as appropriate and evaluate response 5. Consider cultural and social influences on pain and pain management 6. Notify LIP if interventions ineffective or patient reports new pain 7. Monitor vital signs including pulse ox, end-tidal CO2 based on pain intervention 8. Reassess pain per policy 9. Teach patient or legal unit support representative interventions for comforting Outcome: Progressing Note: Evaluation of progress towards goal: Pt able to report pain according to 0/10 pain scale. Medicating patient for pain per orders. Problem: Safety Goal: Patient will be injury free during hospitalization Description: INTERVENTIONS: 1. Assess patient's risk for falls and implement fall prevention plan of care per policy 2. Provide and maintain a safe environment 3. Proper use of double Identifiers 4. Medication administration using the 5 rights 5. Hand hygiene 6. Specimens are labeled at the bedside 7. Instruct patient/ patient unit support representative about use of safety devices 8. Include patient/ patient unit support representative in decisions related to safety Outcome: Progressing Note: Evaluation of progress towards goal: Pt's risk for falls assessed and fall prevention implemented as needed, safe environment provided and maintained, hand hygiene completed. Problem: Infection Goal: Absence of infection during hospitalization Description: Interventions: 1. Assess and monitor for signs and symptoms of infection 2. Monitor lab/diagnostic results 3. Monitor all insertion sites i.e., indwelling lines, tubes and drains 4. Monitor endotracheal (as able) and nasal secretions for changes in amount and color 5. Administer medications as ordered 6. Instruct and encourage patient and family to use good hand hygiene technique 7. Identify and instruct patient/patient unit support representative in use of appropriate isolation precautions for identified infection/symptoms 8. Provide and discuss with patient/patient unit support representative on educational MDRO sheet 9. Encourage and monitor nutritional status daily and consult healthcare business analyst if indicated 10. Implement neutropenic guidelines as needed 11. Review exposure to history of communicable disease and recent travel history on admission 12. Encourage annual influenza vaccine 13. Encourage pneumonia vaccine Outcome: Progressing Note: Evaluation of progress towards goal: Patient VS WNL, remains afebrile for shift. Problem: Knowledge Deficit Goal: Patient/patient unit support representative demonstrates understanding of disease process, treatment plan, medications, and discharge instructions Description: INTERVENTIONS 1. Complete learning assessment and assess knowledge base 2. Provide teaching at level of understanding 3. Provide teaching via preferred learning method(s) Outcome: Progressing Note: Evaluation of progress towards goal: Patient is taught verbally at and appropriate level of understanding using the teach back method. Patient was encouraged to asked questions to learn about of their plan of care and medications. The patient received proper education prior to medication administration. The patient understands and has no additional questions at this time. Problem: Respiratory - Adult Goal: Achieves optimal ventilation and oxygenation Description: Patient's goal is: INTERVENTIONS: 1. Assess for changes in respiratory status 2. Assess for changes in mentation and behavior 3. Position to facilitate oxygenation and minimize respiratory effort 4. Oxygen supplementation based on oxygen saturation or ABGs as ordered 5. Consult smoking cessation as indicated 6. Encourage broncho-pulmonary hygiene including cough, deep breathe, Incentive Spirometry, keep HOB elevated as tolerated, and encourage ambulation, as ordered 7. Assess the need for suctioning and obtain order to maintain clear airway 8. Assess and instruct patient to report SOB or any respiratory difficulty 9. Assess the need for Respiratory Therapy support if not already ordered 10. Initiate emergency measures for respiratory failure Outcome: Progressing Note: Evaluation of progress towards goal: Patient continues to require O2, being weaned down. [facility] 11-09-2023 History and physical note [facility] Medicine History and Physical Name: Nikole Banerjee Acct: [id number] Room: Admit Date: 11/08/2023 PCP: Angelica Flores PA-C Chief Complaint: Chief Complaint Patient presents with Shortness of Breath History Obtained From: chart review and the patient. History of Present Illness: Nikole Banerjee is a 53 y.o. female who presents with Shortness of Breath Patient presented to ER due to cough dyspnea fever and chills patient does have history of COPD. Patient did have up to 1 or 2 fever at home she did try some Tylenol. Also was having chest tightness and headache. Patient does not use oxygen at home. In ER patient noted to have oxygen saturation of 87%. Was started on nasal cannula oxygen. Patient was positive for influenza in the ER. Chest x-ray noted which does not show any pneumonia. EKG normal sinus rhythm without any acute ST-T wave changes. Past Medical History: Past Medical History: Diagnosis Date Asthma Bilateral flank pain Bladder spasm Bleeding from varicose vein Breast lesion marker right breast Bronchitis Chronic pain disorder COPD (chronic obstructive pulmonary disease) ([facility]) Depression Disc disease, degenerative, lumbar or lumbosacral DVT (deep venous thrombosis) ([facility]) 1995 right leg Edema GERD (gastroesophageal reflux disease) Heart murmur Hematuria Kidney stones Low back pain Neuropathy Obesity Oliguria Pneumonia PONV (postoperative nausea and vomiting) Proteinuria Visual impairment glasses Past Surgical History: Past Surgical History: Procedure Laterality Date BREAST BIOPSY right side marker present- pt doesn't know when CARPAL TUNNEL RELEASE Right pt unsure of when CHOLECYSTECTOMY 2012? COLONOSCOPY DIAGNOSTIC / SCREENING N/A 10/17/2023 Performed by Bo Becerra DO at [facility] CYST REMOVAL Left arm- pt unsure of when CYSTOSCOPY N/A 06/24/2023 Performed by Bo Dawson MD at [facility] CYSTOSCOPY REMOVAL STENT Left 10/09/2021 Performed by Bo Dawson MD at [facility] CYSTOSCOPY RETROGRADE PYELOGRAM Bilateral 06/24/2023 Performed by Bo Dawson MD at [facility] CYSTOSCOPY RETROGRADE PYELOGRAM Bilateral 09/18/2021 Performed by Bo Dawson MD at [facility] ENDOSCOPIC RELEASE CARPAL TUNNEL Left 12/14/2020 Performed by Aung Miller MD at [facility] ENDOVENOUS LASER ABLATION VEIN Right 06/14/2023 Performed by Jennifer Castro MD at [facility] EXTRACORPOREAL SHOCK WAVE LITHOTRIPSY EXTRACORPOREAL SHOCK WAVE LITHOTRIPSY Left 02/06/2021 Performed by Bo Dawson MD at [facility] EXTRACORPOREAL SHOCK WAVE LITHOTRIPSY Left 11/16/2020 Performed by Bo Dawson MD at [facility] EXTRACORPOREAL SHOCK WAVE LITHOTRIPSY Left 03/12/2018 Performed by Bo Dawson MD at [facility] EXTRACORPOREAL SHOCK WAVE LITHOTRIPSY Left 12/18/2017 Performed by Bo Dawson MD at [facility] INJECTION BLOCK NERVE MEDIAL BRANCH bilat L 4/,02/25 Bilateral 08/18/2021 Performed by Hong Castro MD at [facility] INJECTION BLOCK NERVE MEDIAL BRANCH bilat L 4/5,/ Bilateral 06/02/2021 Performed by Hong Castro MD at [facility] INJECTION BLOCK SACROILIAC JOINT Bilateral 09/27/2023 Performed by Hong Castro MD at [facility] INJECTION BLOCK SACROILIAC JOINT Bilateral 05/03/2023 Performed by Hong Castro MD at [facility] LASER HOLMIUM URETEROSCOPY RENAL STONES < OR=1CM Left 09/18/2021 Performed by Bo Dawson MD at [facility] PHLEBECTOMY Right 06/14/2023 Performed by Jennifer Castro MD at [facility] PLANTAR'S WART EXCISION Left foot RADIOFREQUENCY ABLATION SPINAL Left L 4/5,5/1 Left 02/15/2023 Performed by Hong Castro MD at [facility] RADIOFREQUENCY ABLATION SPINAL Left L 4/5,5/1 Left 11/10/2021 Performed by Hong Castro MD at [facility] RADIOFREQUENCY ABLATION SPINAL Right L 4/5,5/ Right 06/08/2022 Performed by Hong Castro MD at [facility] Medications Prior to Admission: Prior to Admission medications Medication Sig Start Date End Date Taking? Authorizing Provider acetaminophen (TYLENOL ARTHRITIS) 650 mg 8 hr tablet Take 1 tablet (650 mg total) by mouth every 8 (eight) hours as needed for pain. Yes Not In System Ref Prov albuterol (PROVENTIL HFA;VENTOLIN HFA) 90 mcg/actuation inhaler Inhale 2 puffs every 6 (six) hours as needed for wheezing. 11/16/22 Yes Lakeshia Trivedi APRN-LUKASZ aspirin 325 mg EC tablet Take 1 tablet (325 mg total) by mouth in the morning. Circulation, high risk for blood clots. Yes Not In System Ref Prov CALCIUM 600 + D,3, 600 mg(1,500mg) -400 unit per tablet Take 1 tablet by mouth in the morning. Indications: prevention of vitamin D deficiency. 07/23/19 Yes Not In System Ref Prov DULoxetine (CYMBALTA) 60 mg capsule Take 1 capsule (60 mg total) by mouth in the morning. Indications: neuropathic pain. 09/04/23 Yes Rocael Goetz PA-C loratadine (CLARITIN) 10 mg tablet Take 1 tablet (10 mg total) by mouth nightly Indications: inflammation of the nose due to an allergy. Yes Not In System Ref Prov mometasone-formoterol (DULERA) 100-5 mcg/actuation inhaler Inhale 2 puffs in the morning and 2 puffs before bedtime. Indications: controller medication for asthma. Yes Not In System Ref Prov montelukast (SINGULAIR) 10 mg tablet Take 1 tablet (10 mg total) by mouth nightly Indications: controller medication for asthma. Yes Not In System Ref Prov omeprazole (PriLOSEC) 40 mg capsule Take 1 capsule (40 mg total) by mouth in the morning. Indications: gastroesophageal reflux disease. 07/19/20 Yes Not In System Ref Prov ondansetron (ZOFRAN) 4 mg tablet Take 1 tablet (4 mg total) by mouth every 6 (six) hours as needed for nausea or vomiting for up to 20 doses. 03/18/18 Yes KAIA Ruiz oxybutynin XL (DITROPAN-XL) 5 mg 24 hr tablet Take 1 tablet (5 mg total) by mouth in the morning. 04/22/23 Yes Bo Dawson MD therapeutic multivitamin (THERAGRAN) tablet Take 1 tablet by mouth in the morning. Indications: treatment to prevent vitamin deficiency. Yes Not In System Ref Prov Allergies: Gabapentin, Gentamicin, and Latex Social History: Tobacco: reports that she has been smoking cigarettes. She has a 36 pack-year smoking history. She has been exposed to tobacco smoke. She has never used smokeless tobacco. Alcohol: reports no history of alcohol use. Drug Use: reports no history of drug use. Family History: Family History Problem Relation Age of Onset Emphysema Mother Emphysema Father Lung cancer Father Breast cancer Cousin Review of Systems: All 10 systems reviewed and negative except as noted Review of Systems Constitutional: Positive for chills, fatigue and fever. Negative for activity change and appetite change. HENT: Negative for nosebleeds, trouble swallowing and voice change. Eyes: Negative for itching. Respiratory: Positive for cough, chest tightness, shortness of breath and wheezing. Negative for stridor. Cardiovascular: Negative for chest pain and palpitations. Gastrointestinal: Negative for abdominal distention and abdominal pain. Endocrine: Negative for polyuria. Genitourinary: Negative for difficulty urinating and dysuria. Musculoskeletal: Negative for gait problem. Skin: Negative for color change. Allergic/Immunologic: Negative for immunocompromised state. Neurological: Negative for seizures and speech difficulty. Hematological: Negative for adenopathy. Code Status: No Order Physical Exam: Vitals: BP 132/78 Pulse 78 Temp 37.1 C (98.7 F) (Oral) Resp 20 Ht 154.9 cm (5' 1 ) Wt 112.1 kg (247 lb 1.6 oz) SpO2 90% BMI 46.69 kg/m Temp (24hrs), Av.3 C (99.1 F), Min:36.9 C (98.5 F), Max:38.1 C (100.5 F) Physical Exam Vitals reviewed. Constitutional: Appearance: She is well-developed. HENT: Head: Normocephalic and atraumatic. Right Ear: External ear normal. Left Ear: External ear normal. Nose: Nose normal. Mouth/Throat: Pharynx: Uvula midline. No oropharyngeal exudate. Eyes: General: Right eye: No discharge. Left eye: No discharge. Conjunctiva/sclera: Conjunctivae normal. Pupils: Pupils are equal, round, and reactive to light. Neck: Thyroid: No thyromegaly. Trachea: No tracheal deviation. Cardiovascular: Rate and Rhythm: Normal rate and regular rhythm. Heart sounds: Normal heart sounds. Pulmonary: Effort: Pulmonary effort is normal. No respiratory distress. Breath sounds: No stridor. Wheezing present. Chest: Chest wall: No tenderness. Abdominal: General: Bowel sounds are normal. There is no distension. Palpations: Abdomen is soft. Tenderness: There is no abdominal tenderness. There is no guarding or rebound. Musculoskeletal: General: No tenderness or deformity. Normal range of motion. Cervical back: Normal range of motion and neck supple. Lymphadenopathy: Cervical: No cervical adenopathy. Upper Body: Right upper body: No supraclavicular or epitrochlear adenopathy. Left upper body: No supraclavicular or epitrochlear adenopathy. Skin: General: Skin is warm and dry. Capillary Refill: Capillary refill takes less than 2 seconds. Coloration: Skin is not cyanotic. Nails: There is no clubbing. Neurological: Mental Status: She is alert. Motor: No abnormal muscle tone or seizure activity. Coordination: Coordination normal. Psychiatric: Attention and Perception: Attention normal. Behavior: Behavior normal. Thought Content: Thought content normal. Judgment: Judgment normal. Data: Recent Results (from the past 24 hour(s)) CBC auto differential Collection Time: 11/08/23 2:34 PM Result Value Ref Range White Blood Cells 7.3 4.0 - 11.0 X10E9/L RBC count 5.14 3.80 - 5.20 X10E12/L Hemoglobin 15.3 11.7 - 15.5 g/dL Hematocrit 46.0 35 - 47 % MCV 90 80 - 100 fL MCH 29.7 27 - 34 pg MCHC 33.2 32 - 36 g/dL RDW 15.7 (H) 11.5 - 15.0 % Platelets 162 150 - 450 X10E9/L MPV 8.3 7 - 12 fL % neutrophils 78.6 % % lymphocytes 12.1 % % monocytes 8.7 % % eosinophils 0.0 % % Basophils 0.6 % Neutrophils Absolute (A) 5.7 1.5 - 6.6 X10E9/L Lymphocytes Absolute 0.9 (L) 1.0 - 3.5 X10E9/L Monocytes Absolute 0.6 0 - 0.9 X10E9/L Eosinophils Absolute 0.0 0.0 - 0.4 X10E9/L Basophils Absolute 0.0 0.0 - 0.2 X10E9/L Comprehensive metabolic panel Collection Time: 11/08/23 2:34 PM Result Value Ref Range Sodium 134 134 - 146 mmol/L Potassium, Bld 3.4 (L) 3.5 - 5.0 mmol/L Chloride 100 98 - 109 mmol/L CO2 27 22 - 32 mmol/L Anion gap 7 5 - 15 mmol/L BUN 12 5 - 23 mg/dL Creatinine 0.62 0.40 - 1.00 mg/dL Glucose 115 (H) 65 - 99 mg/dL Calcium 8.0 (L) 8.5 - 10.5 mg/dL Total Protein 7.1 6.0 - 8.0 g/dL Albumin 3.5 3.2 - 5.3 g/dL Alkaline Phosphatase 63 39 - 130 U/L AST 30 0 - 41 U/L ALT 23 0 - 31 U/L Total bilirubin 0.5 0.3 - 1.2 mg/dL eGFR (CKD-EPI)non-race dependent >90 >59 ml/min/1.73sq.m SARS/FLU A+B/RSV by NAAT/Molecular (M4RT Collection Tube) Collection Time: 11/08/23 2:35 PM Result Value Ref Range FLU A PCR Positive (A) Negative^Negative FLU B PCR Negative Negative^Negative RSV by PCR Negative Negative^Negative SARS CoV 2 BY PCR Not Detected Not Detected^Not Detected Bedside Glucose *Place/Obtain serum glucose if >500(>600 MRH) per glucometer. Collection Time: 11/08/23 9:42 PM Result Value Ref Range Bedside glucose 224 (H) 65 - 99 mg/dL Procalcitonin Collection Time: 11/09/23 5:18 AM Result Value Ref Range Procalcitonin 0.09 (H) <0.05 ng/mL Comprehensive metabolic panel Collection Time: 11/09/23 5:18 AM Result Value Ref Range Sodium 137 134 - 146 mmol/L Potassium, Bld 4.5 3.5 - 5.0 mmol/L Chloride 102 98 - 109 mmol/L CO2 26 22 - 32 mmol/L Anion gap 9 5 - 15 mmol/L BUN 14 5 - 23 mg/dL Creatinine 0.49 0.40 - 1.00 mg/dL Glucose 177 (H) 65 - 99 mg/dL Calcium 8.6 8.5 - 10.5 mg/dL Total Protein 7.3 6.0 - 8.0 g/dL Albumin 3.5 3.2 - 5.3 g/dL Alkaline Phosphatase 60 39 - 130 U/L AST 27 0 - 41 U/L ALT 23 0 - 31 U/L Total bilirubin 0.4 0.3 - 1.2 mg/dL eGFR (CKD-EPI)non-race dependent >90 >59 ml/min/1.73sq.m Magnesium Collection Time: 11/09/23 5:18 AM Result Value Ref Range Magnesium 2.0 1.8 - 2.6 mg/dL Phosphorus Collection Time: 11/09/23 5:18 AM Result Value Ref Range Phosphorus 3.1 2.4 - 4.9 mg/dL Thyroid profile includes TSH FT4 Collection Time: 11/09/23 5:18 AM Result Value Ref Range TSH 0.29 (L) 0.49 - 4.67 uIU/mL T4, free 0.66 0.61 - 1.60 ng/dL Protime & INR Collection Time: 11/09/23 5:18 AM Result Value Ref Range Protime 11.7 9.8 - 13.2 sec Inr 1.0 0.8 - 1.1 CBC auto differential Collection Time: 11/09/23 5:18 AM Result Value Ref Range White Blood Cells 12.8 (H) 4.0 - 11.0 X10E9/L RBC count 5.19 3.80 - 5.20 X10E12/L Hemoglobin 15.0 11.7 - 15.5 g/dL Hematocrit 46.7 35 - 47 % MCV 90 80 - 100 fL MCH 29.0 27 - 34 pg MCHC 32.2 32 - 36 g/dL RDW 15.6 (H) 11.5 - 15.0 % Platelets 167 150 - 450 X10E9/L MPV 8.8 7 - 12 fL % neutrophils 90.8 % % lymphocytes 4.3 % % monocytes 4.5 % % eosinophils 0.0 % % Basophils 0.4 % Neutrophils Absolute (A) 11.6 (H) 1.5 - 6.6 X10E9/L Lymphocytes Absolute 0.6 (L) 1.0 - 3.5 X10E9/L Monocytes Absolute 0.6 0 - 0.9 X10E9/L Eosinophils Absolute 0.0 0.0 - 0.4 X10E9/L Basophils Absolute 0.1 0.0 - 0.2 X10E9/L All plain film images(s) ,CT, Ultrasound and MRI have been read by the radiologist. Imaging--Reviewed: X-ray chest 1 view Result Date: 11/08/2023 Narrative: Procedure: Chest x-ray performed Number of views:AP portable History:Shortness of breath Comparison:09/11/2023 Findings: The heart and lungs show no acute findings, and the mediastinum and brandon are grossly negative . Impression: No acute change. Finalized by Christine Sweeney DO on 11/08/2023 2:44 PM Colonoscopy Report Result Date: 10/17/2023 Narrative: This order has been auto-finalized for image and report archival in PACs. *For full report details, please reach out to your physician. This image is visible to you in MyChart.* Assesment: Primary Problem Influenza A Principal Problem: Influenza A Active Problems: Urge incontinence of urine COPD (chronic obstructive pulmonary disease) ([facility] Hypokalemia Acute respiratory failure with hypoxia ([facility]) Plan: IV Solu-Medrol Aerosol treatment On oxygen therapy Wean of oxygen Smoking cessation Tamiflu for influenza infection DVT prophylaxis Lovenox EPCs PPI PT/OT to evaluate and treat Pain Control Restart home medications Labs and imaging reviewed from last 24 hours and results explained to patient Electronically signed by Elías Gupta MD Copy sent to Dr. Angelica Flores PA-C This note is created with the assistance of a speech recognition program. While intending to generate a document that actually reflects the content of the visit, the document can still have some errors including those of syntax and sound a like substitutions which may escape proof reading. It such instances, actual meaning can be extrapolated by contextual diversion. [facility] 11-09-2023 History and physical note [facility] Medicine History and Physical Name: Nikole Banerjee Acct: [id number] Room: [facility]/ Admit Date: 11/08/2023 PCP: Angelica Flores PA-C Chief Complaint: Chief Complaint Patient presents with Shortness of Breath History Obtained From: chart review and the patient. History of Present Illness: Nikole Banerjee is a 53 y.o. female who presents with Shortness of Breath Patient presented to ER due to cough dyspnea fever and chills patient does have history of COPD. Patient did have up to 1 or 2 fever at home she did try some Tylenol. Also was having chest tightness and headache. Patient does not use oxygen at home. In ER patient noted to have oxygen saturation of 87%. Was started on nasal cannula oxygen. Patient was positive for influenza in the ER. Chest x-ray noted which does not show any pneumonia. EKG normal sinus rhythm without any acute ST-T wave changes. Past Medical History: Past Medical History: Diagnosis Date Asthma Bilateral flank pain Bladder spasm Bleeding from varicose vein Breast lesion marker right breast Bronchitis Chronic pain disorder COPD (chronic obstructive pulmonary disease) ([facility]) Depression Disc disease, degenerative, lumbar or lumbosacral DVT (deep venous thrombosis) ([facility]) 1995 right leg Edema GERD (gastroesophageal reflux disease) Heart murmur Hematuria Kidney stones Low back pain Neuropathy Obesity Oliguria Pneumonia PONV (postoperative nausea and vomiting) Proteinuria Visual impairment glasses Past Surgical History: Past Surgical History: Procedure Laterality Date BREAST BIOPSY right side marker present- pt doesn't know when CARPAL TUNNEL RELEASE Right pt unsure of when CHOLECYSTECTOMY 2012? COLONOSCOPY DIAGNOSTIC / SCREENING N/A 10/17/2023 Performed by Bo Becerra DO at [facility] CYST REMOVAL Left arm- pt unsure of when CYSTOSCOPY N/A 06/24/2023 Performed by Bo Dawson MD at [facility] CYSTOSCOPY REMOVAL STENT Left 10/09/2021 Performed by Bo Dawson MD at [facility] CYSTOSCOPY RETROGRADE PYELOGRAM Bilateral 06/24/2023 Performed by Bo Dawson MD at [facility] CYSTOSCOPY RETROGRADE PYELOGRAM Bilateral 09/18/2021 Performed by Bo Dawson MD at [facility] ENDOSCOPIC RELEASE CARPAL TUNNEL Left 12/14/2020 Performed by Aung Miller MD at [facility] ENDOVENOUS LASER ABLATION VEIN Right 06/14/2023 Performed by Jennifer Castro MD at [facility] EXTRACORPOREAL SHOCK WAVE LITHOTRIPSY EXTRACORPOREAL SHOCK WAVE LITHOTRIPSY Left 02/06/2021 Performed by Bo Dawson MD at [facility] EXTRACORPOREAL SHOCK WAVE LITHOTRIPSY Left 11/16/2020 Performed by Bo Dawson MD at [facility] EXTRACORPOREAL SHOCK WAVE LITHOTRIPSY Left 03/12/2018 Performed by Bo Dawson MD at [facility] EXTRACORPOREAL SHOCK WAVE LITHOTRIPSY Left 12/18/2017 Performed by Bo Dawson MD at [facility] INJECTION BLOCK NERVE MEDIAL BRANCH bilat L 4/5,5/ Bilateral 08/18/2021 Performed by Hong Castro MD at [facility] INJECTION BLOCK NERVE MEDIAL BRANCH bilat L 4/5,5/ Bilateral 06/02/2021 Performed by Hong Castro MD at [facility] INJECTION BLOCK SACROILIAC JOINT Bilateral 09/27/2023 Performed by Hong Castro MD at [facility] INJECTION BLOCK SACROILIAC JOINT Bilateral 05/03/2023 Performed by Hong Castro MD at [facility] LASER HOLMIUM URETEROSCOPY RENAL STONES < OR=1CM Left 09/18/2021 Performed by Bo Dawson MD at [facility] PHLEBECTOMY Right 06/14/2023 Performed by Jennifer Castro MD at [facility] Left foot RADIOFREQUENCY ABLATION SPINAL Left L 4/5,5/1 Left 02/15/2023 Performed by Hong Castro MD at [facility] RADIOFREQUENCY ABLATION SPINAL Left L 4/5,5/1 Left 11/10/2021 Performed by Hong Castro MD at [facility] RADIOFREQUENCY ABLATION SPINAL Right L 4/5,5/1 Right 06/08/2022 Performed by Hong Castro MD at [facility] Medications Prior to Admission: Prior to Admission medications Medication Sig Start Date End Date Taking? Authorizing Provider acetaminophen (TYLENOL ARTHRITIS) 650 mg 8 hr tablet Take 1 tablet (650 mg total) by mouth every 8 (eight) hours as needed for pain. Yes Not In System Ref Prov albuterol (PROVENTIL HFA;VENTOLIN HFA) 90 mcg/actuation inhaler Inhale 2 puffs every 6 (six) hours as needed for wheezing. 11/16/22 Yes Lakeshia Trivedi APRN-LUKASZ aspirin 325 mg EC tablet Take 1 tablet (325 mg total) by mouth in the morning. Circulation, high risk for blood clots. Yes Not In System Ref Prov CALCIUM 600 + D,3, 600 mg(1,500mg) -400 unit per tablet Take 1 tablet by mouth in the morning. Indications: prevention of vitamin D deficiency. 07/23/19 Yes Not In System Ref Prov DULoxetine (CYMBALTA) 60 mg capsule Take 1 capsule (60 mg total) by mouth in the morning. Indications: neuropathic pain. 09/04/23 Yes Rocael Goetz PA-C loratadine (CLARITIN) 10 mg tablet Take 1 tablet (10 mg total) by mouth nightly Indications: inflammation of the nose due to an allergy. Yes Not In System Ref Prov mometasone-formoterol (DULERA) 100-5 mcg/actuation inhaler Inhale 2 puffs in the morning and 2 puffs before bedtime. Indications: controller medication for asthma. Yes Not In System Ref Prov montelukast (SINGULAIR) 10 mg tablet Take 1 tablet (10 mg total) by mouth nightly Indications: controller medication for asthma. Yes Not In System Ref Prov omeprazole (PriLOSEC) 40 mg capsule Take 1 capsule (40 mg total) by mouth in the morning. Indications: gastroesophageal reflux disease. 07/19/20 Yes Not In System Ref Prov ondansetron (ZOFRAN) 4 mg tablet Take 1 tablet (4 mg total) by mouth every 6 (six) hours as needed for nausea or vomiting for up to 20 doses. 03/18/18 Yes KAIA Ruiz oxybutynin XL (DITROPAN-XL) 5 mg 24 hr tablet Take 1 tablet (5 mg total) by mouth in the morning. 04/22/23 Yes Bo Dawson MD therapeutic multivitamin (THERAGRAN) tablet Take 1 tablet by mouth in the morning. Indications: treatment to prevent vitamin deficiency. Yes Not In System Ref Prov Allergies: Gabapentin, Gentamicin, and Latex Social History: Tobacco: reports that she has been smoking cigarettes. She has a 36 pack-year smoking history. She has been exposed to tobacco smoke. She has never used smokeless tobacco. Alcohol: reports no history of alcohol use. Drug Use: reports no history of drug use. Family History: Family History Problem Relation Age of Onset Emphysema Mother Emphysema Father Lung cancer Father Breast cancer Cousin Review of Systems: All 10 systems reviewed and negative except as noted Review of Systems Constitutional: Positive for chills, fatigue and fever. Negative for activity change and appetite change. HENT: Negative for nosebleeds, trouble swallowing and voice change. Eyes: Negative for itching. Respiratory: Positive for cough, chest tightness, shortness of breath and wheezing. Negative for stridor. Cardiovascular: Negative for chest pain and palpitations. Gastrointestinal: Negative for abdominal distention and abdominal pain. Endocrine: Negative for polyuria. Genitourinary: Negative for difficulty urinating and dysuria. Musculoskeletal: Negative for gait problem. Skin: Negative for color change. Allergic/Immunologic: Negative for immunocompromised state. Neurological: Negative for seizures and speech difficulty. Hematological: Negative for adenopathy. Code Status: No Order Physical Exam: Vitals: BP 132/78 Pulse 78 Temp 37.1 C (98.7 F) (Oral) Resp 20 Ht 154.9 cm (5' 1 ) Wt 112.1 kg (247 lb 1.6 oz) SpO2 90% BMI 46.69 kg/m Temp (24hrs), Av.3 C (99.1 F), Min:36.9 C (98.5 F), Max:38.1 C (100.5 F) Physical Exam Vitals reviewed. Constitutional: Appearance: She is well-developed. HENT: Head: Normocephalic and atraumatic. Right Ear: External ear normal. Left Ear: External ear normal. Nose: Nose normal. Mouth/Throat: Pharynx: Uvula midline. No oropharyngeal exudate. Eyes: General: Right eye: No discharge. Left eye: No discharge. Conjunctiva/sclera: Conjunctivae normal. Pupils: Pupils are equal, round, and reactive to light. Neck: Thyroid: No thyromegaly. Trachea: No tracheal deviation. Cardiovascular: Rate and Rhythm: Normal rate and regular rhythm. Heart sounds: Normal heart sounds. Pulmonary: Effort: Pulmonary effort is normal. No respiratory distress. Breath sounds: No stridor. Wheezing present. Chest: Chest wall: No tenderness. Abdominal: General: Bowel sounds are normal. There is no distension. Palpations: Abdomen is soft. Tenderness: There is no abdominal tenderness. There is no guarding or rebound. Musculoskeletal: General: No tenderness or deformity. Normal range of motion. Cervical back: Normal range of motion and neck supple. Lymphadenopathy: Cervical: No cervical adenopathy. Upper Body: Right upper body: No supraclavicular or epitrochlear adenopathy. Left upper body: No supraclavicular or epitrochlear adenopathy. Skin: General: Skin is warm and dry. Capillary Refill: Capillary refill takes less than 2 seconds. Coloration: Skin is not cyanotic. Nails: There is no clubbing. Neurological: Mental Status: She is alert. Motor: No abnormal muscle tone or seizure activity. Coordination: Coordination normal. Psychiatric: Attention and Perception: Attention normal. Behavior: Behavior normal. Thought Content: Thought content normal. Judgment: Judgment normal. Data: Recent Results (from the past 24 hour(s)) CBC auto differential Collection Time: 11/08/23 2:34 PM Result Value Ref Range White Blood Cells 7.3 4.0 - 11.0 X10E9/L RBC count 5.14 3.80 - 5.20 X10E12/L Hemoglobin 15.3 11.7 - 15.5 g/dL Hematocrit 46.0 35 - 47 % MCV 90 80 - 100 fL MCH 29.7 27 - 34 pg MCHC 33.2 32 - 36 g/dL RDW 15.7 (H) 11.5 - 15.0 % Platelets 162 150 - 450 X10E9/L MPV 8.3 7 - 12 fL % neutrophils 78.6 % % lymphocytes 12.1 % % monocytes 8.7 % % eosinophils 0.0 % % Basophils 0.6 % Neutrophils Absolute (A) 5.7 1.5 - 6.6 X10E9/L Lymphocytes Absolute 0.9 (L) 1.0 - 3.5 X10E9/L Monocytes Absolute 0.6 0 - 0.9 X10E9/L Eosinophils Absolute 0.0 0.0 - 0.4 X10E9/L Basophils Absolute 0.0 0.0 - 0.2 X10E9/L Comprehensive metabolic panel Collection Time: 11/08/23 2:34 PM Result Value Ref Range Sodium 134 134 - 146 mmol/L Potassium, Bld 3.4 (L) 3.5 - 5.0 mmol/L Chloride 100 98 - 109 mmol/L CO2 27 22 - 32 mmol/L Anion gap 7 5 - 15 mmol/L BUN 12 5 - 23 mg/dL Creatinine 0.62 0.40 - 1.00 mg/dL Glucose 115 (H) 65 - 99 mg/dL Calcium 8.0 (L) 8.5 - 10.5 mg/dL Total Protein 7.1 6.0 - 8.0 g/dL Albumin 3.5 3.2 - 5.3 g/dL Alkaline Phosphatase 63 39 - 130 U/L AST 30 0 - 41 U/L ALT 23 0 - 31 U/L Total bilirubin 0.5 0.3 - 1.2 mg/dL eGFR (CKD-EPI)non-race dependent >90 >59 ml/min/1.73sq.m SARS/FLU A+B/RSV by NAAT/Molecular (M4RT Collection Tube) Collection Time: 11/08/23 2:35 PM Result Value Ref Range FLU A PCR Positive (A) Negative^Negative FLU B PCR Negative Negative^Negative RSV by PCR Negative Negative^Negative SARS CoV 2 BY PCR Not Detected Not Detected^Not Detected Bedside Glucose *Place/Obtain serum glucose if >500(>600 MRH) per glucometer. Collection Time: 11/08/23 9:42 PM Result Value Ref Range Bedside glucose 224 (H) 65 - 99 mg/dL Procalcitonin Collection Time: 11/09/23 5:18 AM Result Value Ref Range Procalcitonin 0.09 (H) <0.05 ng/mL Comprehensive metabolic panel Collection Time: 11/09/23 5:18 AM Result Value Ref Range Sodium 137 134 - 146 mmol/L Potassium, Bld 4.5 3.5 - 5.0 mmol/L Chloride 102 98 - 109 mmol/L CO2 26 22 - 32 mmol/L Anion gap 9 5 - 15 mmol/L BUN 14 5 - 23 mg/dL Creatinine 0.49 0.40 - 1.00 mg/dL Glucose 177 (H) 65 - 99 mg/dL Calcium 8.6 8.5 - 10.5 mg/dL Total Protein 7.3 6.0 - 8.0 g/dL Albumin 3.5 3.2 - 5.3 g/dL Alkaline Phosphatase 60 39 - 130 U/L AST 27 0 - 41 U/L ALT 23 0 - 31 U/L Total bilirubin 0.4 0.3 - 1.2 mg/dL eGFR (CKD-EPI)non-race dependent >90 >59 ml/min/1.73sq.m Magnesium Collection Time: 11/09/23 5:18 AM Result Value Ref Range Magnesium 2.0 1.8 - 2.6 mg/dL Phosphorus Collection Time: 11/09/23 5:18 AM Result Value Ref Range Phosphorus 3.1 2.4 - 4.9 mg/dL Thyroid profile includes TSH FT4 Collection Time: 11/09/23 5:18 AM Result Value Ref Range TSH 0.29 (L) 0.49 - 4.67 uIU/mL T4, free 0.66 0.61 - 1.60 ng/dL Protime & INR Collection Time: 11/09/23 5:18 AM Result Value Ref Range Protime 11.7 9.8 - 13.2 sec Inr 1.0 0.8 - 1.1 CBC auto differential Collection Time: 11/09/23 5:18 AM Result Value Ref Range White Blood Cells 12.8 (H) 4.0 - 11.0 X10E9/L RBC count 5.19 3.80 - 5.20 X10E12/L Hemoglobin 15.0 11.7 - 15.5 g/dL Hematocrit 46.7 35 - 47 % MCV 90 80 - 100 fL MCH 29.0 27 - 34 pg MCHC 32.2 32 - 36 g/dL RDW 15.6 (H) 11.5 - 15.0 % Platelets 167 150 - 450 X10E9/L MPV 8.8 7 - 12 fL % neutrophils 90.8 % % lymphocytes 4.3 % % monocytes 4.5 % % eosinophils 0.0 % % Basophils 0.4 % Neutrophils Absolute (A) 11.6 (H) 1.5 - 6.6 X10E9/L Lymphocytes Absolute 0.6 (L) 1.0 - 3.5 X10E9/L Monocytes Absolute 0.6 0 - 0.9 X10E9/L Eosinophils Absolute 0.0 0.0 - 0.4 X10E9/L Basophils Absolute 0.1 0.0 - 0.2 X10E9/L All plain film images(s) ,CT, Ultrasound and MRI have been read by the radiologist. Imaging--Reviewed: X-ray chest 1 view Result Date: 11/08/2023 Narrative: Procedure: Chest x-ray performed Number of views:AP portable History:Shortness of breath Comparison:09/11/2023 Findings: The heart and lungs show no acute findings, and the mediastinum and brandon are grossly negative . Impression: No acute change. Finalized by Christine Sweeney DO on 11/08/2023 2:44 PM Colonoscopy Report Result Date: 10/17/2023 Narrative: This order has been auto-finalized for image and report archival in PACs. *For full report details, please reach out to your physician. This image is visible to you in MyChart.* Assesment: Primary Problem Influenza A Principal Problem: Influenza A Active Problems: Urge incontinence of urine COPD (chronic obstructive pulmonary disease) ([facility] Hypokalemia Acute respiratory failure with hypoxia ([facility]) Plan: IV Solu-Medrol Aerosol treatment On oxygen therapy Wean of oxygen Smoking cessation Tamiflu for influenza infection DVT prophylaxis Lovenox EPCs PPI PT/OT to evaluate and treat Pain Control Restart home medications Labs and imaging reviewed from last 24 hours and results explained to patient Electronically signed by Elías Gupta MD Copy sent to Dr. Angelica Flores, PAAlessiaC This note is created with the assistance of a speech recognition program. While intending to generate a document that actually reflects the content of the visit, the document can still have some errors including those of syntax and sound a like substitutions which may escape proof reading. It such instances, actual meaning can be extrapolated by contextual diversion. documented in this encounter [facility] 11-09-2023 Plan of care note Problem: Pain Goal: Patient goal is pain score less than 4, able to rest, and participant in treatment plan as appropriate Description: INTERVENTIONS: 1. Encourage patient or legal unit support representative to report early pain and ask for pain medicine when needed 2. Assess pain using appropriate pain scale and include the scale used when documenting 3. Administer analgesics based on type and severity of pain and evaluate response within appropriate time frame 4. Implement non-pharmacological measures as appropriate and evaluate response 5. Consider cultural and social influences on pain and pain management 6. Notify LIP if interventions ineffective or patient reports new pain 7. Monitor vital signs including pulse ox, end-tidal CO2 based on pain intervention 8. Reassess pain per policy 9. Teach patient or legal unit support representative interventions for comforting Outcome: Progressing Note: Evaluation of progress towards goal: Pt denies pain thus far this shift. No nonverbal s/sx pain noted. Problem: Safety Goal: Patient will be injury free during hospitalization Description: INTERVENTIONS: 1. Assess patient's risk for falls and implement fall prevention plan of care per policy 2. Provide and maintain a safe environment 3. Proper use of double Identifiers 4. Medication administration using the 5 rights 5. Hand hygiene 6. Specimens are labeled at the bedside 7. Instruct patient/ patient unit support representative about use of safety devices 8. Include patient/ patient unit support representative in decisions related to safety Outcome: Progressing Note: Evaluation of progress towards goal: Remains free from injury. Safety precautions maintained. Problem: Infection Goal: Absence of infection during hospitalization Description: Interventions: 1. Assess and monitor for signs and symptoms of infection 2. Monitor lab/diagnostic results 3. Monitor all insertion sites i.e., indwelling lines, tubes and drains 4. Monitor endotracheal (as able) and nasal secretions for changes in amount and color 5. Administer medications as ordered 6. Instruct and encourage patient and family to use good hand hygiene technique 7. Identify and instruct patient/patient unit support representative in use of appropriate isolation precautions for identified infection/symptoms 8. Provide and discuss with patient/patient unit support representative on educational MDRO sheet 9. Encourage and monitor nutritional status daily and consult healthcare business analyst if indicated 10. Implement neutropenic guidelines as needed 11. Review exposure to history of communicable disease and recent travel history on admission 12. Encourage annual influenza vaccine 13. Encourage pneumonia vaccine Outcome: Progressing Note: Evaluation of progress towards goal: Remains afebrile, repeat labs in am. Problem: Knowledge Deficit Goal: Patient/patient unit support representative demonstrates understanding of disease process, treatment plan, medications, and discharge instructions Description: INTERVENTIONS 1. Complete learning assessment and assess knowledge base 2. Provide teaching at level of understanding 3. Provide teaching via preferred learning method(s) Outcome: Progressing Note: Evaluation of progress towards goal: Plan of care reviewed w/ pt , no questions/concerns voiced. All interventions explained prior to initiating. Pt educated on purpose et side effects of steroids and blood glucose monitoring/ insulin coverage. Pt verbalized understanding. Problem: Low Risk Fall Score Description: Hanson Fall Score of 0 - 24 or indicated by [facility] Assessment Goal: Patient should be free from fall Description: Interventions: 1. [place] to environment 2. Hourly rounds addressing the 4 P's (Pain, Positioning, Possessions, Potty) 3. Clear area of hazards (spills, clutter, electrical cords, unnecessary equipment) 4. Place equipment (bed & TV controls, call light, phone, urinal) within reach 5. Encourage patient to wear glasses and hearing aides as appropriate 6. Maintain bed in lowest position 7. Lock wheels on bed/wheelchair 8. Provide adequate lighting, including night light 9. Assess need for additional bedding, food/fluids, pain med's prior to sleep/routinely 10. Provide gripper slippers or personal non-skid footwear 11. Teach patient and patient unit support representative to maintain environment for safety and engage in all aspects of fall prevention program Outcome: Progressing Note: Evaluation of progress towards goal: Remains free from falls. Appropriate fall precautions implemented/maintained. Pt ambulatory independently w/ steady gait et no assistive devices used. [facility] 11-08-2023 Note Procedure: Chest x-ray performed Number of views:AP portable History:Shortness of breath Comparison:09/11/2023 Findings: The heart and lungs show no acute findings, and the mediastinum and brandon are grossly negative . Impression: No acute change. Finalized by Christine Sweeney DO on 11/08/2023 2:44 PM [facility] 11-08-2023 Emergency department Triage note Pt states she started to have shortness of breath and body aches and increase tired yesterday. Pt states fever today. Pt had breathing tx at 1200 Pt states she [facility] Emergency department Note Pt states she started to have shortness of breath and body aches and increase tired yesterday. Pt states fever today. Pt had breathing tx at 1200 Pt states she took Tylenol at 1320 Images from the original note were not included. History Chief Complaint Patient presents with Shortness of Breath Initial evaluation preformed by Dr. Green at 2:16 PM 53 y.o. female presents to ED with c/o Shortness of Breath. was at bedside. Pt also reports fever, chills, cough, clear rhinorrhea, chest pain, and headache. SOB and fever began yesterday. Pt measured 102.3 fever, tried tylenol. Pt noted headache and chest norman is secondary to cough. Pt is not on oxygen at home, was on nasal cannula oxygen in room. Pt usually has 94% SpO2 but noted 87% today. Pt also tried breathing treatment and inhaler, no relief. Pt denies congestion. Pt is allergic to Gabapentin, Gentamicin, and Latex. Pt has hx of pneumonia and 4 times walking pneumonia. History provided by: Patient interpreter for the deaf used?: No Shortness of Breath Severity: Mild Onset quality: Sudden Duration: 1 day Timing: Intermittent Progression: Unchanged Chronicity: New Relieved by: Nothing tried Worsened by: Nothing tried Ineffective treatments: Inhaler (breathing treatment) Associated symptoms: chest pain, cough, fever and headaches Chest pain: Severity: Mild Onset quality: Sudden Duration: 1 day Timing: Constant Progression: Unchanged Chronicity: New Cough: Severity: Mild Onset quality: Sudden Timing: Intermittent Progression: Unchanged Chronicity: New Fever: Timing: Constant 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) Depression Disc disease, degenerative, lumbar or lumbosacral DVT (deep venous thrombosis) ([facility]) 1995 right leg Edema GERD (gastroesophageal reflux disease) Heart murmur Hematuria Kidney stones Low back pain Neuropathy Obesity Oliguria Pneumonia PONV (postoperative nausea and vomiting) Proteinuria Visual impairment glasses Past Surgical History: Procedure Laterality Date BREAST BIOPSY right side marker present- pt doesn't know when CARPAL TUNNEL RELEASE Right pt unsure of when CHOLECYSTECTOMY 2012? COLONOSCOPY DIAGNOSTIC / SCREENING N/A 10/17/2023 Performed by Bo Becerra DO at [facility] CYST REMOVAL Left arm- pt unsure of when CYSTOSCOPY N/A 06/24/2023 Performed by Bo Dawson MD at [facility] CYSTOSCOPY REMOVAL STENT Left 10/09/2021 Performed by Bo Dawson MD at [facility] CYSTOSCOPY RETROGRADE PYELOGRAM Bilateral 06/24/2023 Performed by Bo Dawson MD at [facility] CYSTOSCOPY RETROGRADE PYELOGRAM Bilateral 09/18/2021 Performed by Bo Dawson MD at [facility] ENDOSCOPIC RELEASE CARPAL TUNNEL Left 12/14/2020 Performed by Aung Miller MD at [facility] ENDOVENOUS LASER ABLATION VEIN Right 06/14/2023 Performed by Jennifer Castro MD at [facility] EXTRACORPOREAL SHOCK WAVE LITHOTRIPSY EXTRACORPOREAL SHOCK WAVE LITHOTRIPSY Left 02/06/2021 Performed by Bo Dawson MD at [facility] EXTRACORPOREAL SHOCK WAVE LITHOTRIPSY Left 11/16/2020 Performed by Bo Dawson MD at [facility] EXTRACORPOREAL SHOCK WAVE LITHOTRIPSY Left 03/12/2018 Performed by Bo Dawson MD at [facility] EXTRACORPOREAL SHOCK WAVE LITHOTRIPSY Left 12/18/2017 Performed by Bo Dawson MD at [facility] INJECTION BLOCK NERVE MEDIAL BRANCH bilat L 4/5,5/1 Bilateral 08/18/2021 Performed by Hong Castro MD at [facility] INJECTION BLOCK NERVE MEDIAL BRANCH bilat L 4/5,5/1 Bilateral 06/02/2021 Performed by Hong Castro MD at [facility] INJECTION BLOCK SACROILIAC JOINT Bilateral 09/27/2023 Performed by Hong Castro MD at [facility] INJECTION BLOCK SACROILIAC JOINT Bilateral 05/03/2023 Performed by Hong Castro MD at [facility] LASER HOLMIUM URETEROSCOPY RENAL STONES < OR=1CM Left 09/18/2021 Performed by Bo Dawson MD at [facility] PHLEBECTOMY Right 06/14/2023 Performed by Jennifer Castro MD at [facility] PLANTAR'S WART EXCISION Left foot RADIOFREQUENCY ABLATION SPINAL Left L 4/5,5/1 Left 02/15/2023 Performed by Hong Castro MD at [facility] RADIOFREQUENCY ABLATION SPINAL Left L 4/5,5/1 Left 11/10/2021 Performed by Hong Castro MD at [facility] RADIOFREQUENCY ABLATION SPINAL Right L 4/5,5/1 Right 06/08/2022 Performed by Hong Castro MD at [facility] Travel Screening Question Response Have you been in contact with someone who was sick? No / Unsure Do you have any of the following new or worsening symptoms? None of these Have you traveled internationally or domestically in the last month? No Travel History Travel since 10/08/23 No documented travel since 10/08/23 Family History Problem Relation Age of Onset Emphysema Mother Emphysema Father Lung cancer Father Breast cancer Cousin Social History Substance and Sexual Activity Drug Use No Social History Tobacco Use Smoking status: Every Day Packs/day: 1.00 Years: 36.00 Additional pack years: 0.00 Total pack years: 36.00 Types: Cigarettes Passive exposure: Past Smokeless tobacco: Never Tobacco comments: not interested in quitting Vaping Use Vaping Use: Never used Substance Use Topics Alcohol use: No Drug use: No Review of Systems Constitutional: Positive for chills and fever. HENT: Positive for rhinorrhea. Negative for congestion. Respiratory: Positive for cough and shortness of breath. Cardiovascular: Positive for chest pain/discomfort. Neurological: Positive for headaches. Physical Exam ED Triage Vitals Temp Pulse Resp BP SpO2 -- -- -- -- -- Temp src Heart Rate Source Patient Position BP Location FiO2 (%) -- -- -- -- -- Vitals: 11/08/23 1405 BP: 125/73 Pulse: 102 Resp: 24 Temp: (!) 38.1 C (100.5 F) TempSrc: Oral SpO2: 96% Weight: 112.5 kg (248 lb) Height: 154.9 cm (5' 1 ) Physical Exam Vitals and nursing note reviewed. Constitutional: General: She is not in acute distress. Appearance: Normal appearance. HENT: Head: Normocephalic and atraumatic. Right Ear: External ear normal. Left Ear: External ear normal. Nose: Nose normal. Mouth/Throat: Mouth: Mucous membranes are moist. Pharynx: Oropharynx is clear. Eyes: Extraocular Movements: Extraocular movements intact. Conjunctiva/sclera: Conjunctivae normal. Pupils: Pupils are equal, round, and reactive to light. Cardiovascular: Rate and Rhythm: Normal rate and regular rhythm. Pulses: Normal pulses. Heart sounds: Normal heart sounds. Pulmonary: Effort: Pulmonary effort is normal. Breath sounds: Wheezing present. Comments: On nasal cannula oxygen noted. Abdominal: General: Abdomen is flat. Palpations: Abdomen is soft. Musculoskeletal: General: Normal range of motion. Cervical back: Normal range of motion and neck supple. Skin: General: Skin is warm and dry. Capillary Refill: Capillary refill takes less than 2 seconds. Neurological: General: No focal deficit present. Mental Status: She is alert and oriented to person, place, and time. Procedure Procedures Re-Evaluation Re-Evaluation ED Course ED Course as of 11/08/231637Nov 08, 20238 Discussed her presentation with the Internal Medicine hospitalist team who accepted the admission without further request. [AWA] ED Course User Index [AWA] Franklin Green DO Clinical Impressions as of 11/08/231637 Influenza A COPD exacerbation ([facility]) Hypoxia MDM Medical Decision Making Amount and/or Complexity of Data Reviewed Labs: ordered. Radiology: ordered. ECG/medicine tests: ordered. Risk Prescription drug management. 4:37 PM This is a 53 y.o. female presenting for Shortness of Breath. On arrival patient's height is 154.9 cm (5' 1 ) and weight is 112.5 kg (248 lb). Her oral temperature is 38.1 C (100.5 F) (abnormal). Her blood pressure is 126/57 and her pulse is 107. Her respiration is 21 and oxygen saturation is 93%. History provided by patient. Chart Reviewed: Vascular surgery office visit on 10/01/2023. Presented for evaluation of venous stasis dermatitis and venous stasis wounds. Physical exam: patient appears to be in no apparent distress and vital signs are stable with the exception of hypoxia initially. Wheezing throughout all lung shrestha. Exam otherwise stable as noted above. Differential Diagnosis: includes but is not limited to: COPD exacerbation, pneumonia, pneumothorax, and influenza/coronavirus/RSV. Plan of Care: Patient presented with shortness of breath and initially was hypoxic with a fever. She is also mildly tachycardic. Wheezing throughout all lung shrestha but no respiratory accessory muscle use. Presentation is most consistent with COPD exacerbation and this was confirmed with a chest x-ray within normal limits and positive for influenza A. Given this new oxygen requirement this is likely a COPD exacerbation and she will require admission. Labs: labs revealed no significant abnormalities with the exception of positive influenza a. Imaging: Imaging was independently viewed by Dr. Green and is notable for CXR without evidence of pneumothorax, rib fracture, or consolidation.. However, pending official radiologist read. EK-lead ECG performed and interpreted by myself as normal sinus rhythm. There is no evidence of ST elevation, depression, or T-wave inversion. This is an unremarkable EKG. Reevaluation: On reevaluation the patient is resting comfortably and in NAD. Vital signs remain stable. Results were discussed with patient. All questions answered to the patient's satisfaction. Disposition: Based on the diagnostic results and physical exam, pt requires observation.. There were no social determinants of health (e.g., housing, economic circumstances, unemployment) that affected care of the patient. Provider Statement By electronically signing this emergency patient record, the Emergency Physician/STATIONARY ENGINEER REFRIGERATION/PA-C attests that all entries made into the electronic medical record by sandy Sánchez prior to the Physician/STATIONARY ENGINEER REFRIGERATION/PA-C signature reflect an accurate accounting of the evaluation and care rendered by that Emergency Physician/STATIONARY ENGINEER REFRIGERATION/PA-C. The Emergency Physician/STATIONARY ENGINEER REFRIGERATION/PA-C assumes full responsibility for those entries. The Emergency Physician/STATIONARY ENGINEER REFRIGERATION/PA-C also attests that any patient testing or treatment that was instituted by nursing staff in accordance to Emergency Department Preemptive Guidelines have been reviewed and unless so stated elsewhere in this patient chart, the Physician/STATIONARY ENGINEER REFRIGERATION/PA-C agrees with the testing and care provided. No Additional Attestations Liu Egan 11/08/23 1407 Liu Egan 11/08/23 1414 Liu Egan 11/08/23 1427 Franklin Green DO 11/08/23 1638 Franklin Green DO 11/11/23 0712 Franklin Green DO 11/11/23 0730 documented in this encounter [facility] 11-08-2023 Physician Emergency department Note Images from the original note were not included. History Chief Complaint Patient presents with Shortness of Breath Initial evaluation preformed by Dr. Green at 2:16 PM 53 y.o. female presents to ED with c/o Shortness of Breath. was at bedside. Pt also reports fever, chills, cough, clear rhinorrhea, chest pain, and headache. SOB and fever began yesterday. Pt measured 102.3 fever, tried tylenol. Pt noted headache and chest norman is secondary to cough. Pt is not on oxygen at home, was on nasal cannula oxygen in room. Pt usually has 94% SpO2 but noted 87% today. Pt also tried breathing treatment and inhaler, no relief. Pt denies congestion. Pt is allergic to Gabapentin, Gentamicin, and Latex. Pt has hx of pneumonia and 4 times walking pneumonia. History provided by: Patient interpreter for the deaf used?: No Shortness of Breath Severity: Mild Onset quality: Sudden Duration: 1 day Timing: Intermittent Progression: Unchanged Chronicity: New Relieved by: Nothing tried Worsened by: Nothing tried Ineffective treatments: Inhaler (breathing treatment) Associated symptoms: chest pain, cough, fever and headaches Chest pain: Severity: Mild Onset quality: Sudden Duration: 1 day Timing: Constant Progression: Unchanged Chronicity: New Cough: Severity: Mild Onset quality: Sudden Timing: Intermittent Progression: Unchanged Chronicity: New Fever: Timing: Constant 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) Depression Disc disease, degenerative, lumbar or lumbosacral DVT (deep venous thrombosis) ([facility]) 1995 right leg Edema GERD (gastroesophageal reflux disease) Heart murmur Hematuria Kidney stones Low back pain Neuropathy Obesity Oliguria Pneumonia PONV (postoperative nausea and vomiting) Proteinuria Visual impairment glasses Past Surgical History: Procedure Laterality Date BREAST BIOPSY right side marker present- pt doesn't know when CARPAL TUNNEL RELEASE Right pt unsure of when CHOLECYSTECTOMY 2012? COLONOSCOPY DIAGNOSTIC / SCREENING N/A 10/17/2023 Performed by Bo Becerra DO at [facility] CYST REMOVAL Left arm- pt unsure of when CYSTOSCOPY N/A 06/24/2023 Performed by Bo Dawson MD at [facility] CYSTOSCOPY REMOVAL STENT Left 10/09/2021 Performed by Bo Dawson MD at [facility] CYSTOSCOPY RETROGRADE PYELOGRAM Bilateral 06/24/2023 Performed by Bo Dawson MD at [facility] CYSTOSCOPY RETROGRADE PYELOGRAM Bilateral 09/18/2021 Performed by Bo Dawson MD at [facility] ENDOSCOPIC RELEASE CARPAL TUNNEL Left 12/14/2020 Performed by Aung Miller MD at [facility] ENDOVENOUS LASER ABLATION VEIN Right 06/14/2023 Performed by Jennifer Castro MD at [facility] EXTRACORPOREAL SHOCK WAVE LITHOTRIPSY EXTRACORPOREAL SHOCK WAVE LITHOTRIPSY Left 02/06/2021 Performed by Bo Dawson MD at [facility] EXTRACORPOREAL SHOCK WAVE LITHOTRIPSY Left 11/16/2020 Performed by Bo Dawson MD at [facility] EXTRACORPOREAL SHOCK WAVE LITHOTRIPSY Left 03/12/2018 Performed by Bo Dawson MD at [facility] EXTRACORPOREAL SHOCK WAVE LITHOTRIPSY Left 12/18/2017 Performed by Bo Dawson MD at [facility] INJECTION BLOCK NERVE MEDIAL BRANCH bilat L 4/,02/25 Bilateral 08/18/2021 Performed by Hong Castro MD at [facility] INJECTION BLOCK NERVE MEDIAL BRANCH bilat L 4/5,5/1 Bilateral 06/02/2021 Performed by Hong Castro MD at [facility] INJECTION BLOCK SACROILIAC JOINT Bilateral 09/27/2023 Performed by Hong Castro MD at [facility] INJECTION BLOCK SACROILIAC JOINT Bilateral 05/03/2023 Performed by Hong Castro MD at [facility] LASER HOLMIUM URETEROSCOPY RENAL STONES < OR=1CM Left 09/18/2021 Performed by Bo Dawson MD at [facility] PHLEBECTOMY Right 06/14/2023 Performed by Jennifer Castro MD at [facility] PLANTAR'S WART EXCISION Left foot RADIOFREQUENCY ABLATION SPINAL Left L 4/5,5/1 Left 02/15/2023 Performed by Hong Castro MD at [facility] RADIOFREQUENCY ABLATION SPINAL Left L 4/5,5/1 Left 11/10/2021 Performed by Hong Castro MD at [facility] RADIOFREQUENCY ABLATION SPINAL Right L 4/5,5/1 Right 06/08/2022 Performed by Hong Castro MD at [facility] Travel Screening Question Response Have you been in contact with someone who was sick? No / Unsure Do you have any of the following new or worsening symptoms? None of these Have you traveled internationally or domestically in the last month? No Travel History Travel since 10/08/23 No documented travel since 10/08/23 Family History Problem Relation Age of Onset Emphysema Mother Emphysema Father Lung cancer Father Breast cancer Cousin Social History Substance and Sexual Activity Drug Use No Social History Tobacco Use Smoking status: Every Day Packs/day: 1.00 Years: 36.00 Additional pack years: 0.00 Total pack years: 36.00 Types: Cigarettes Passive exposure: Past Smokeless tobacco: Never Tobacco comments: not interested in quitting Vaping Use Vaping Use: Never used Substance Use Topics Alcohol use: No Drug use: No Review of Systems Constitutional: Positive for chills and fever. HENT: Positive for rhinorrhea. Negative for congestion. Respiratory: Positive for cough and shortness of breath. Cardiovascular: Positive for chest pain/discomfort. Neurological: Positive for headaches. Physical Exam ED Triage Vitals Temp Pulse Resp BP SpO2 -- -- -- -- -- Temp src Heart Rate Source Patient Position BP Location FiO2 (%) -- -- -- -- -- Vitals: 11/08/23 1405 BP: 125/73 Pulse: 102 Resp: 24 Temp: (!) 38.1 C (100.5 F) TempSrc: Oral SpO2: 96% Weight: 112.5 kg (248 lb) Height: 154.9 cm (5' 1 ) Physical Exam Vitals and nursing note reviewed. Constitutional: General: She is not in acute distress. Appearance: Normal appearance. HENT: Head: Normocephalic and atraumatic. Right Ear: External ear normal. Left Ear: External ear normal. Nose: Nose normal. Mouth/Throat: Mouth: Mucous membranes are moist. Pharynx: Oropharynx is clear. Eyes: Extraocular Movements: Extraocular movements intact. Conjunctiva/sclera: Conjunctivae normal. Pupils: Pupils are equal, round, and reactive to light. Cardiovascular: Rate and Rhythm: Normal rate and regular rhythm. Pulses: Normal pulses. Heart sounds: Normal heart sounds. Pulmonary: Effort: Pulmonary effort is normal. Breath sounds: Wheezing present. Comments: On nasal cannula oxygen noted. Abdominal: General: Abdomen is flat. Palpations: Abdomen is soft. Musculoskeletal: General: Normal range of motion. Cervical back: Normal range of motion and neck supple. Skin: General: Skin is warm and dry. Capillary Refill: Capillary refill takes less than 2 seconds. Neurological: General: No focal deficit present. Mental Status: She is alert and oriented to person, place, and time. Procedure Procedures Re-Evaluation Re-Evaluation ED Course ED Course as of 11/08/23 1638 SatNov 08, 2023 1638 Discussed her presentation with the Internal Medicine hospitalist team who accepted the admission without further request. [AWA] ED Course User Index [AWA] Franklin Green DO Clinical Impressions as of 11/08/23 1638 Influenza A COPD exacerbation ([facility]) Hypoxia MDM Medical Decision Making Amount and/or Complexity of Data Reviewed Labs: ordered. Radiology: ordered. ECG/medicine tests: ordered. Risk Prescription drug management. 4:37 PM This is a 53 y.o. female presenting for Shortness of Breath. On arrival patient's height is 154.9 cm (5' 1 ) and weight is 112.5 kg (248 lb). Her oral temperature is 38.1 C (100.5 F) (abnormal). Her blood pressure is 126/57 and her pulse is 107. Her respiration is 21 and oxygen saturation is 93%. History provided by patient. Chart Reviewed: Vascular surgery office visit on 10/01/2023. Presented for evaluation of venous stasis dermatitis and venous stasis wounds. Physical exam: patient appears to be in no apparent distress and vital signs are stable with the exception of hypoxia initially. Wheezing throughout all lung shrestha. Exam otherwise stable as noted above. Differential Diagnosis: includes but is not limited to: COPD exacerbation, pneumonia, pneumothorax, and influenza/coronavirus/RSV. Plan of Care: Patient presented with shortness of breath and initially was hypoxic with a fever. She is also mildly tachycardic. Wheezing throughout all lung shrestha but no respiratory accessory muscle use. Presentation is most consistent with COPD exacerbation and this was confirmed with a chest x-ray within normal limits and positive for influenza A. Given this new oxygen requirement this is likely a COPD exacerbation and she will require admission. Labs: labs revealed no significant abnormalities with the exception of positive influenza a. Imaging: Imaging was independently viewed by Dr. Green and is notable for CXR without evidence of pneumothorax, rib fracture, or consolidation.. However, pending official radiologist read. EK-lead ECG performed and interpreted by myself as normal sinus rhythm. There is no evidence of ST elevation, depression, or T-wave inversion. This is an unremarkable EKG. Reevaluation: On reevaluation the patient is resting comfortably and in NAD. Vital signs remain stable. Results were discussed with patient. All questions answered to the patient's satisfaction. Disposition: Based on the diagnostic results and physical exam, pt requires observation.. There were no social determinants of health (e.g., housing, economic circumstances, unemployment) that affected care of the patient. Provider Statement By electronically signing this emergency patient record, the Emergency Physician/STATIONARY ENGINEER REFRIGERATION/PA-C attests that all entries made into the electronic medical record by sandy Sánchez prior to the Physician/STATIONARY ENGINEER REFRIGERATION/PA-C signature reflect an accurate accounting of the evaluation and care rendered by that Emergency Physician/STATIONARY ENGINEER REFRIGERATION/PA-C. The Emergency Physician/STATIONARY ENGINEER REFRIGERATION/PA-C assumes full responsibility for those entries. The Emergency Physician/STATIONARY ENGINEER REFRIGERATION/PA-C also attests that any patient testing or treatment that was instituted by nursing staff in accordance to Emergency Department Preemptive Guidelines have been reviewed and unless so stated elsewhere in this patient chart, the Physician/STATIONARY ENGINEER REFRIGERATION/VERNAC agrees with the testing and care provided. No Additional Attestations Liu Egan 11/08/23 1407 Christinjesusroxymiriam Egan 11/08/23 1414 Liu Egan 11/08/23 1427 Franklin Green DO 11/08/23 1638 Franklin Green DO 11/11/23 0712 Franklin Green DO 11/11/23 0730 [facility] 11-07-2023 History of Present illness Narrative CHIEF COMPLAINT: Chief Complaint Patient presents with Follow-up Follow up. Venous ulcer to RLE. HISTORY OF PRESENT ILLNESS: Nikole Banerjee is a 53 y.o. female who presents to the office today for evaluation of Venous insufficiency and venous stasis ulcer. Patient had venous stasis ulcers over the right lower extremity that we healed well. Patient is wearing compression stockings. Patient tries to elevate her lower extremity well. She still has swelling in the lower extremity that is worse by the end of the day. The swelling is better in the morning. Patient denies any chest pain or shortness breath. Patient has no new complaints. ALLERGIES: Allergies Allergen Reactions Gabapentin Swelling Facial, legs, feet swelling Gentamicin Rash Latex Hives MEDICATIONS: Current Outpatient Medications Medication Sig Dispense Refill acetaminophen (TYLENOL ARTHRITIS) 650 mg 8 hr tablet Take 1 tablet (650 mg total) by mouth every 8 (eight) hours as needed for pain. albuterol (PROVENTIL HFA;VENTOLIN HFA) 90 mcg/actuation inhaler Inhale 2 puffs every 6 (six) hours as needed for wheezing. 18 g 0 aspirin 325 mg EC tablet Take 1 tablet (325 mg total) by mouth in the morning. Circulation, high risk for blood clots. CALCIUM 600 + D,3, 600 mg(1,500mg) -400 unit per tablet Take 1 tablet by mouth in the morning. Indications: prevention of vitamin D deficiency. 3 DULoxetine (CYMBALTA) 60 mg capsule Take 1 capsule (60 mg total) by mouth in the morning. Indications: neuropathic pain. 30 capsule 3 loratadine (CLARITIN) 10 mg tablet Take 1 tablet (10 mg total) by mouth nightly Indications: inflammation of the nose due to an allergy. mometasone-formoterol (DULERA) 100-5 mcg/actuation inhaler Inhale 2 puffs in the morning and 2 puffs before bedtime. Indications: controller medication for asthma. montelukast (SINGULAIR) 10 mg tablet Take 1 tablet (10 mg total) by mouth nightly Indications: controller medication for asthma. omeprazole (PriLOSEC) 40 mg capsule Take 1 capsule (40 mg total) by mouth in the morning. Indications: gastroesophageal reflux disease. ondansetron (ZOFRAN) 4 mg tablet Take 1 tablet (4 mg total) by mouth every 6 (six) hours as needed for nausea or vomiting for up to 20 doses. 20 tablet 0 therapeutic multivitamin (THERAGRAN) tablet Take 1 tablet by mouth in the morning. Indications: treatment to prevent vitamin deficiency. oxybutynin XL (DITROPAN-XL) 5 mg 24 hr tablet Take 1 tablet (5 mg total) by mouth in the morning. 90 tablet 3 predniSONE (DELTASONE) 10 mg tablet Take 4 tablets (40 mg total) by mouth daily for 4 days, THEN 3 tablets (30 mg total) daily for 4 days, THEN 2 tablets (20 mg total) daily for 4 days, THEN 1 tablet (10 mg total) daily for 4 days. 40 tablet 0 No current facility-administered medications for this visit. Facility-Administered Medications Ordered in Other Visits Medication Dose Route Frequency Provider Last Rate Last Admin triamcinolone (KENALOG) 0.1 % cream 1 Application 1 Application topical PRN Jennifer Castro MD 1 Application at 09/03/23 6712 SOCIAL HISTORY: Social History Tobacco Use Smoking status: Every Day Packs/day: 1.00 Years: 36.00 Additional pack years: 0.00 Total pack years: 36.00 Types: Cigarettes Passive exposure: Past Smokeless tobacco: Never Tobacco comments: not interested in quitting Substance Use Topics Alcohol use: No REVIEW OF SYSTEMS: Review of Systems Constitutional: Negative for activity change, appetite change, chills, fatigue, fever and unexpected weight change. HENT: Negative for facial swelling and trouble swallowing. Eyes: Negative for visual disturbance. Respiratory: Negative for chest tightness and shortness of breath. Cardiovascular: Positive for leg swelling. Negative for chest pain. Gastrointestinal: Negative for abdominal pain. Genitourinary: Negative for flank pain and frequency. Musculoskeletal: Positive for arthralgias and back pain. Negative for joint swelling. Skin: Positive for color change. Negative for pallor, rash and wound. Neurological: Negative for dizziness, syncope, facial asymmetry, speech difficulty, weakness, light-headedness and numbness. Hematological: Negative for adenopathy. PHYSICAL EXAM: Physical Exam Vitals reviewed. Constitutional: General: She is not in acute distress. Neck: Vascular: No JVD. Cardiovascular: Rate and Rhythm: Normal rate. Pulses: Radial pulses are 2+ on the right side. Dorsalis pedis pulses are 2+ on the right side and 2+ on the left side. Posterior tibial pulses are 2+ on the right side and 2+ on the left side. Heart sounds: No murmur heard. Comments: No carotid bruits. Pulmonary: Breath sounds: Normal breath sounds. Abdominal: Palpations: Abdomen is soft. There is no mass. Tenderness: There is no abdominal tenderness. Musculoskeletal: General: No tenderness. Cervical back: Neck supple. Right lower leg: Edema present. Left lower leg: Edema present. Feet: Right foot: Skin integrity: Erythema present. Left foot: Skin integrity: Erythema present. Skin: General: Skin is warm. Coloration: Skin is not pale. Findings: Erythema present. Neurological: Mental Status: She is alert and oriented to person, place, and time. VASCULAR EXAM: Vascular: Right Lower Extremity Right lower extremity pulses DP: 2+ PT: 2+ Right lower extremity edema: 2+ and pitting Right Lower Extremity Skin Integrity: Positive for erythema. Left Lower Extremity Left lower extremity pulses DP: 2+ PT: 2+ Left lower extremity edema: 2+ and pitting Left Lower Extremity Skin Integrity: Positive for erythema. Right Upper Extremity Right upper extremity pulses Radial: 2+ ASSESSMENT AND PLAN: Nikole was seen today for follow-up. Diagnoses and all orders for this visit: Varicose veins of bilateral lower extremities with pain Varicose veins of leg with swelling, bilateral Venous stasis ulcer of right calf with fat layer exposed with varicose veins (CMS-HCC) Chronic obstructive pulmonary disease, unspecified COPD type (CMS-HCC) Acute respiratory failure with hypoxia (CMS-HCC) Continue with the compression stockings. Elevate lower extremities very extensively. We will see her back in 3 months for follow-up. All wounds appeared to be healed well. documented in this encounter [facility] 11-06-2023 Note Orthopedic Surgery Subjective Follow-up of the Left Knee 11/06/23 Patient follows up today for [facility] approval of supartz injections, #1 of 3. She has had no further knee issues or complications since previous exam and is ready for the injection today 09/13/23 Nikole Banerjee is a 53 y.o. female presenting for follow-up evaluation of left knee pain, [facility]. She is a history of a work-related injury in 2017, and has been treated by Dr. Reagan/Kaz since then. She has previously failed home exercise programs, therapy, stretching, ice, NSAIDs, and multiple corticosteroid injections in the bilateral knees. However, patient does endorse that she has had Supartz injections to the contralateral knee with good relief of symptoms. 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 In the interim, patient reports that her left knee pain has gotten slightly worse since last visit. She localizes the pain over the medial aspect of the left knee that it is exacerbated with activity and exercise. It is minimally improved with rest. Denies any numbness or tingling to the left lower extremity. Patient History History reviewed. No pertinent surgical history. History reviewed. No pertinent past medical history. Objective General: Body mass index is 43.08 kg/m???. No acute distress, comfortable Respiratory: Unlabored breathing with normal rate, no cough Cardiovascular: Warm well perfused extremities Psych: Appropriate mood behavior Left Knee: Inspection- no ecchymosis, no edema, no skin abnormalities over the injection site Rest of exam deferred Imaging personally reviewed: No new. Large Joint: L knee on 11/06/2023 10:52 AM Indications: pain Details: 22 G needle, lateral approach Medications: 4 mL lidocaine 10 mg/mL (1 %); 25 mg sodium hyaluronate 10 mg/mL Outcome: tolerated well, no immediate complications Procedure, treatment alternatives, risks and benefits explained, specific risks discussed. Immediately prior to procedure a time out was called to verify the correct patient, procedure, equipment, sales and support center agent and site/side marked as required. Patient was prepped and draped in the usual sterile fashion. Assessment/Plan iNkole Banerjee is a 53 y.o. female with left knee osteoarthritis and degenerative meniscal tears exacerbated by a WRI in 2017 here for first supartz injection - Supartz injection #1 of 3 injection performed without complications - patient to follow up in 1 week for injection #2 or 3 - post injection instructions given to rest and ice as needed Elisa Nuñez MD By using the attestations below, the signing clinician agrees that I have read and verify that the documentation has been personally reviewed by me and ensure that the documentation accurately reflects the encounter. GC: I personally saw this patient on the day of the encounter, performed the mendoza portion(s) of the service and participated in the management and confirm the resident's documentation. Please note there may be an additional personal documentation from me. [facility] 09-13-2023 Note Orthopedic Surgery Subjective Follow-up of the Left Knee 09/13/23 Nikole Banerjee is a 52 y.o. female presenting for follow-up evaluation of left knee pain, [facility]. She is a history of a work-related injury in 2017, and has been treated by Dr. Reagan/Kaz since then. She has previously failed home exercise programs, therapy, stretching, ice, NSAIDs, and multiple corticosteroid injections in the bilateral knees. However, patient does endorse that she has had Supartz injections to the contralateral knee with good relief of symptoms. 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 In the interim, patient reports that her left knee pain has gotten slightly worse since last visit. She localizes the pain over the medial aspect of the left knee that it is exacerbated with activity and exercise. It is minimally improved with rest. Denies any numbness or tingling to the left lower extremity. Patient History History reviewed. No pertinent surgical history. History reviewed. No pertinent past medical history. Objective General: Body mass index is 43.08 kg/m???. No acute distress, comfortable Respiratory: Unlabored breathing with normal rate, no cough Cardiovascular: Warm well perfused extremities Psych: Appropriate mood behavior Left Knee: Inspection- no ecchymosis, no edema, 1+ effusion Tender to palpation over medial and lateral joint lines, patellar facets Knee ROM: Extension- 0??? Flexion- 110??? Strength: Knee Flexion 5/5 Knee Extension 5/5 Ankle Dorsiflexion 5/5 Ankle Plantarflexion 5/5 Sensation: intact over superficial peroneal, deep peroneal and tibial nerve distributions Stability: Stable to varus and valgus stress Stable to anterior and posterior thrust Gait: heel toe pattern, normal Imaging personally reviewed: No new. Assessment/Plan Nikole Banerjee is a 52 y.o. female with left knee osteoarthritis and degenerative meniscal tears exacerbated by a WRI in 2017 -Resubmit C9 Supartz injection, left knee given continued pain in the left knee due to arthritis and degenerative meniscus tear. She had excellent relief with viscosupplementation previously in her right knee and we are hopeful that this will help with her left knee pain. - We also discussed that if she fails viscosupplementation, we would begin a conversation about total knee arthroplasty, and may obtain new standing xrays and refer her to another surgeon within our practice at that time. Tad Crane MD Orthopedic Surgery, PGY-2 Pager: [phone] 09/13/23 9:56 AM By using the attestations below, the signing clinician agrees that I have read and verify that the documentation has been personally reviewed by me and ensure that the documentation accurately reflects the encounter. GC: I personally saw this patient on the day of the encounter, performed the mendoza portion(s) of the service and participated in the management and confirm the resident's documentation. Please note there may be an additional personal documentation from me. [facility] Evaluation note Diagnosis Acute respiratory failure with hypoxia ([facility]-HCC)- Primary Influenza A Influenza with other respiratory manifestations COPD exacerbation ([facility]) Obstructive chronic bronchitis with exacerbation Hypoxia Hypoxemia Influenza A Influenza with other respiratory manifestations Urge incontinence of urine Urge incontinence COPD (chronic obstructive pulmonary disease) ([facility]) Chronic airway obstruction, not elsewhere classified Hypokalemia Hypopotassemia documented in this encounter [facility] Diagnosis Varicose veins of bilateral lower extremities with pain- Primary Varicose veins of leg with swelling, bilateral [facility] Diagnosis Varicose veins of leg with swelling, bilateral- Primary Varicose veins of bilateral lower extremities with pain documented in this encounter [facility]* Diagnosis Varicose veins of leg with swelling, bilateral- Primary Varicose veins of bilateral lower extremities with pain documented in this encounter [facility]* Diagnosis Varicose veins of bilateral lower extremities with pain- Primary Varicose veins of leg with swelling, bilateral Venous stasis ulcer of right calf with fat layer exposed with varicose veins (CMS-HCC) Chronic obstructive pulmonary disease, unspecified COPD type (CMS-HCC) Acute respiratory failure with hypoxia (CMS-HCC) documented in this encounter [facility]* Diagnosis Venous stasis dermatitis of both lower extremities- Primary documented in this encounter [facility]* Diagnosis Acute respiratory failure with hypoxia (CMS-HCC)- Primary Chronic obstructive pulmonary disease, unspecified COPD type (CMS-HCC) Venous stasis ulcer of right calf with fat layer exposed with varicose veins (CMS-HCC) Varicose veins of leg with swelling, bilateral Varicose veins of bilateral lower extremities with pain documented in this encounter [facility] Discharge instructionsNot on filedocumented in this encounterH[facility] SystemInstructionsNot on filedocumented in this encounterH[facility] SystemInstructionsNot on filedocumented in this encounterH[facility] SystemInstructionsNot on filedocumented in this encounterH[facility] SystemInstructionsNot on filedocumented in this encounterH[facility] SystemInstructionsNot on filedocumented in this encounterHock[facility] SystemInstructionsNot on filedocumented in this [facility] Summary Purpose Family History No Family History Records FoundNo Family History Records FoundNo Family History Records FoundNo Family History Records FoundNo Family History Records FoundNo Family History Records FoundNo Family History Records FoundNo Family History Records FoundNo Family History Records FoundNo Family History Records Found Advance Directives No Advanced Directives Records FoundLatest Code Status on File Code Status Date Activated Date Inactivated Comments Full Code 11/11/2023 9:16 AM 11/14/2023 9:31 PM Latest Code Status on File Code Status Date Activated Date Inactivated Comments Full Code 11/11/2023 9:16 AM 11/14/2023 9:31 PM Reason for Referral Specialty Diagnoses / Procedures Referred By Contac t Referred To Contact Diagnoses COPD exacerbation ([facility]) Hypoxia Procedures Oxygen Therapy Oxygen Therapy Jone Montalvo, SPONSORSHIP MANAGER-[employer]PER [address], [facility] [address] [place] [address] Referral ID Status Reason Start Date Expiration Date V isits Requested Visits Authorized [id number] Pending Review 11/14/2023 11/13/2024 1 1 Specialty Diagnoses / Procedures Referred By Contac t Referred To Contact Diagnoses COPD exacerbation ([facility]) Procedures Follow-up with primary care provider Jone Montalvo, SPONSORSHIP MANAGER-[employer]PER [address], [facility] [address] [place] [address] Referral ID Status Reason Start Date Expiration Date V isits Requested Visits Authorized [id number] Pending Review 11/14/2023 11/13/2024 1 1 Specialty Diagnoses / Procedures Referred By Contac t Referred To Contact Procedures Adult diet Jone Montalvo, SPONSORSHIP MANAGER[employer]PER [address], [facility] [address] [place] [address] Referral ID Status Reason Start Date Expiration Date V isits Requested Visits Authorized [id number] Pending Review 11/14/2023 11/13/2024 1 1 Additional Source Comments INFORMATION SOURCE (unrecogn ized section and content) DATE CREATED AUTHOR 04/17/2018 [facility] DATE CREATED AUTHOR AUTHOR'S ORGANIZ ATION 04/21/2018 [facility] DATE CREATED AUTHOR AUTHOR'S ORGANIZ ATION 01/04/2020 [facility] DATE CREATED AUTHOR AUTHOR'S ORGANIZ ATION 10/05/2021 [facility] DATE CREATED AUTHOR AUTHOR'S ORGANIZ ATION 03/13/2023 [facility] DATE CREATED AUTHOR AUTHOR'S ORGANIZ ATION 02/18/2024 [facility] DATE CREATED AUTHOR AUTHOR'S ORGANIZ ATION 05/02/2024 [facility] DATE CREATED AUTHOR AUTHOR'S ORGANIZ ATION 07/03/2024 [facility] DATE CREATED AUTHOR AUTHOR'S ORGANIZ ATION 07/21/2024 [facility] DATE CREATED AUTHOR AUTHOR'S ORGANIZ ATION 07/28/2024 [facility] Reason for Visit (unrecogniz ed section and content) Reason Comments Shortness of Breath Specialty Diagnoses / Procedures Referred By Contac t Referred To Contact Diagnoses Shortness of breath Influenza A Hypoxia COPD exacerbation ([facility]) Elías Gupta MD [address] [place] [address] Referral ID Status Reason Start Date Expiration Date Visits Re quested Visits Authorized [id number] 1 1 Reason Comments Follow-up Follow up. Venous ul cer to RLE. Reason Comments Follow-up Extremity Pain Leg Swelling Patient present with bilateral lower extremity itching, edema with redness noted to lower leg/feet. Pain is 6/10 intermittently. Symptoms 5 days now. Recent hospital stay for H1N1 and Pneumonia. Reason Onset Date Comments Med Refill 01/27/2024 Scheduled Active and Recently Administ ered Medications (unrecognized section and content) Medication Order 11/12/2023 11/13/2023 11/14/2023 aspirin EC tablet 325 mg 325 mg, oral, Daily, First dose on 11/09/23 at 0900, Do not crush or chew. 0841 (Given - Provider: Nathalie Tyler RN) 0842 (Given - Provider: Bárbara Tovar RN) 08 (Given - Provider: Bárbara Tovar RN) calcium carbonate-vitamin D3 (OSCAL 500 + D) 500 mg(1,250mg) -200 units per tablet 1 tablet 1 tablet, oral, Daily with breakfast, First dose on 11/09/23 at 0800, Look-alike/sound-alike medication - verify indication for use. Vit D3 200 IU = 5 mcg. 0841 (Given - Provider: Nathalie Tyler RN) 0842 (Given - Provider: Bárbara Tovar, EDUARDO) 08 (Given - Provider: Bárbara Tovar, EDUARDO) cefTRIAXone (ROCEPHIN) IVPB 1000 mg/50 mL in iso-osmotic dextrose (20 mg/mL premix) 1,000 mg, intravenous, at 100 mL/hr, Administer over 30 Minutes, Every 24 hours, First dose on Sat11/12/23 at 1030, Look-alike/sound-alike medication - verify indication for use. Do not co-administer with calcium-containing solutions such as Lactated Ringers., Indication: Community-acquired pneumonia 1057 (New Bag - Provider: Nathalie Tyler RN)1123 (Stop Bag - Provider: Talita Salazar RN)1127 (Stop Bag - Provider: Nathalie Tyler RN) 0950 (New Bag - Provider: Bárbara Tovar RN)1020 (Stop Bag - Provider: Bárbara Tovar RN) 1014 (New Bag - Provider: Bárbara Tovar RN)1044 (Stop Bag - Provider: Bárbara Tovar RN) doxycycline (VIBRA-TABS) tablet 100 mg 100 mg, oral, 2 times daily, First dose on Sat11/12/23 at 1030, Indication: Community-acquired pneumonia 1051 (Given - Provider: Nathalie Tyler RN)2128 (Given - Provider: Talita Salazar RN) 0842 (Given - Provider: Bárbara Tovar RN)2130 (Given - Provider: Talita Salazar RN) 0826 (Given - Provider: Bárbara Tovar RN) DULoxetine (CYMBALTA) DR capsule 60 mg 60 mg, oral, Daily, First dose on Sat11/09/23 at 0900, Look-alike/sound-alike medication - verify indication for use. Swallow whole-do not crush or chew. Although the wastewater treatment plant instructor does not recommend opening the capsule to facilitate administration, the contents of capsule may be sprinkled on applesauce or in apple juice and swallowed (without chewing) immediately; do not sprinkle contents on chocolate pudding., Indications: neuropathic pain 0841 (Given - Provider: Nathalie Tyler RN) 0842 (Given - Provider: Bárbara Tovar RN) 0826 (Given - Provider: Bárbara Tovar RN) enoxaparin (LOVENOX) syringe 40 mg 40 mg, subcutaneous, Every 12 hours, First dose (after last reorder) on Sat11/09/23 at 0600, When Creatinine Clearance 30 mL/min or greater Look-alike/sound-alike medication - verify indication for use. 0525 (Given - Provider: Viridiana Mao RN)1743 (Given - Provider: Nathalie Tyler RN) 0514 (Given - Provider: Talita Salazar RN)1730 (Given - Provider: Bárbara Tovar RN) 0520 (Given - Provider: Talita Salazar RN)1800 (Not Given - Provider: Bárbara Tovar RN - Reason: Patient/family refused) insulin lispro (HumaLOG) injection 2-10 Units 2-10 Units, subcutaneous, 3 times daily with meals, First dose on 11/09/23 at 0800, Daytime hyperglycemia dosing. For blood glucose 151-200 mg/dL, give 2 units. For blood glucose 201-250 mg/dL, give 4 units. For blood glucose 251-300 mg/dL, give 6 units. For blood glucose 301-350 mg/dL, give 8 units. For blood glucose 351-400 mg/dL, give 10 units. Give even if NPO or meals skipped. Do NOT give more often then every 4 hours when NPO. Notify prescriber if blood glucose greater than 400 mg/dL. Look-alike/sound-alike medication - verify indication for use. Prime with 2 units of insulin prior to administration. Prandial/supplemental Insulin. Pre-filled pens stable 28 days at room temperature. Insulin lispro should be administered within 15 minutes before or immediately after a meal. 0841 (Given - Provider: Nathalie Tyler RN)1211 (Given - Provider: Nathalie Tyler RN)1700 (Not Given - Provider: Nathalie Tyler RN - Reason: Order parameters not met) 0800 (Not Given - Provider: Bárbara Tovar RN - Reason: Order parameters not met)1200 (Not Given - Provider: Bárbara Tovar RN - Reason: Order parameters not met)1700 (Not Given - Provider: Bárbara Tovar RN - Reason: Order parameters not met) 0800 (Not Given - Provider: Bárbara Tovar RN - Reason: Order parameters not met)1226 (Given - Provider: Bárbara Tovar RN)1700 (Not Given - Provider: Bárbara Tovar RN - Reason: Patient/family refused) insulin lispro (HumaLOG) injection 2-8 Units 2-8 Units, subcutaneous, Nightly, First dose on Sat11/08/23 at 2200, Bedtime hyperglycemia dosing. For blood glucose 201-250 mg/dL, give 2 units. For blood glucose 251-300 mg/dL, give 4 units. For blood glucose 301-350 mg/dL, give 6 units. For blood glucose 351-400 mg/dL, give 8 units. Give even if NPO or meals skipped. Do NOT give more often then every 4 hours when NPO. Notify prescriber if blood glucose greater than 400 mg/dL. Look-alike/sound-alike medication - verify indication for use. Prime with 2 units of insulin prior to administration. Prandial/supplemental Insulin. Pre-filled pens stable 28 days at room temperature. Insulin lispro should be administered within 15 minutes before or immediately after a meal. 2128 (Given - Provider: Talita Salazar RN) 2132 (Given - Provider: Talita Salazar RN) loratadine (CLARITIN) tablet 10 mg 10 mg, oral, Nightly, First dose on Sat11/08/23 at 2200, Look-alike/sound-alike medication - verify indication for use., Indications: allergic rhinitis 2127 (Given - Provider: Talita Salazar RN) 2129 (Given - Provider: Talita Salazar, RN) melatonin (CIRCADIN) tablet 3 mg 3 mg, oral, Nightly, First dose on Sat11/09/23 at 2200 2127 (Given - Provider: Talita Salazar RN) 2129 (Given - Provider: Talita Salazar, RN) methylPREDNISolone sod suc(PF) (Solu-MEDROL) injection 40 mg (CANCELED) 40 mg, intravenous, Every 8 hours, First dose on Sat11/08/23 at 2200, May alter blood glucose or insulin requirements. Look-alike/sound-alike medication - verify indication for use. 524 (Given - Provider: Viridiana Mao RN)141 (Given - Provider: Nathalie Tyler RN)2127 (Given - Provider: Talita Salazar RN) 05 (Given - Provider: Talita Salazar RN) methylPREDNISolone sod suc(PF) (Solu-MEDROL) injection 40 mg 40 mg, intravenous, Every 12 hours scheduled, First dose (after last modification) on Sat11/13/23 at 2100, May alter blood glucose or insulin requirements. Look-alike/sound-alike medication - verify indication for use. 2129 (Given - Provider: Talita Salazar RN) 825 (Given - Provider: Bárbara Tovar RN) montelukast (SINGULAIR) tablet 10 mg 10 mg, oral, Nightly, First dose on Sat11/08/23 at 2200, Look-alike/sound-alike medication - verify indication for use., Indications: maintenance therapy for asthma 2127 (Given - Provider: Talita Salazar RN) 2129 (Given - Provider: Talita Salazar RN) mdkkigkr-aquu-PM-calcium &mins (THERAGRAN-M) 9 mg iron-400 mcg tablet 1 tablet 1 tablet, oral, Daily, First dose on Sat11/09/23 at 0900 0841 (Given - Provider: Nathalie Tyler RN) 0842 (Given - Provider: Bárbara Tovar RN) 0826 (Given - Provider: Bárbara Tovar RN) oseltamivir (TAMIFLU) capsule 75 mg (COMPLETED) 75 mg, oral, 2 times daily, First dose on Sat11/08/23 at 2100, For 5 days, Indication: Influenza treatment 0841 (Given - Provider: Nathalie Tyler RN)2127 (Given - Provider: Talita Salazar RN) 08 (Given - Provider: Bárbara Tovar RN) pantoprazole (PROTONIX) EC tablet 40 mg 40 mg, oral, Every morning before breakfast, First dose on Sat11/11/23 at 0600, Look-alike/sound-alike medication - verify indication for use. If patient is receiving enteral feeding, consider alternative PPI or continue IV pantoprazole until the delayed-release tablet can be taken orally, Indication: GERD 0525 (Given - Provider: Viridiana Mao RN) 0514 (Given - Provider: Talita Salazar RN) 0520 (Given - Provider: Talita Salazar RN) sodium chloride 0.9 % flush 3 mL 3 mL, intravenous, Every 12 hours scheduled, First dose on Sat11/08/23 at 2099 0841 (Given - Provider: Nathalie Tyler, EDUARDO)8 (Given - Provider: Talita Salaazr, RN) 0843 (Given - Provider: Bárbara Tovar, RN)2099 (Given - Provider: Talita Salazar RN) 0826 (Given - Provider: Bárbara Tovar, EDUARDO) PRN Medication Order 11/12/2023 11/13/2023 11/14/2023 acetaminophen (TYLENOL) tablet 650 mg 650 mg, oral, Every 4 hours PRN, mild pain - pain scale 1-3, headaches, temperature greater than 38 C, Temperature greater than 38.3 C, Starting on Sat11/08/23 at 2048, [Warning: Total Acetaminophen not to exceed more than 4 grams (4000 mg) in 24 hours] alum-mag hydroxide-simeth (MAALOX) 200-200-20 mg/5 mL suspension 30 mL 30 mL, oral, 4 times daily after meals and at bedtime as needed, dyspepsia, Starting on Sat11/08/23 at 2048, Look-alike/sound-alike medication - verify indication for use. Lucas well., Indications: dyspepsia calcium gluconate 3,000 mg in sodium chloride 0.9 % 100 mL IVPB 3,000 mg, intravenous, at 43.3 mL/hr, Administer over 3 Hours, As needed, ionized calcium 3.5 to 3.9 mg/dL, Starting on Sat11/08/23 at 2048, IV Administration of calcium via a central or deep vein preferred. Avoid administration in small hand veins VESICANT (RED) calcium gluconate 4,000 mg in sodium chloride 0.9 % 250 mL IVPB 4,000 mg, intravenous, at 72.5 mL/hr, Administer over 4 Hours, As needed, ionized calcium 3.4 mg/dL or less, Starting on Sat11/08/23 at 2048, IV administration of calcium via a central or deep vein is preferred. Avoid administration in small hand veins. VESICANT (RED) calcium gluconate IVPB 2000 mg/100 mL (20 mg/mL premix) 2,000 mg, intravenous, at 50 mL/hr, Administer over 2 Hours, As needed, ionized calcium 4 to 4.3 mg/dL, Starting on Sat11/08/23 at 2048, IV Administration of calcium via a central or deep vein preferred. Avoid administration in small hand veins VESICANT (RED) dextrose (GLUTOSE) 40 % gel 15 g 15 g, oral, As needed, low blood sugar, blood glucose less than 70 mg/dL, Starting on Sat11/08/23 at 2048, If patient conscious and taking PO. If blood glucose is not greater than 70 mg/dL after initial treatment, repeat treatment. dextrose 5 % (D5W) infusion 100 mL/hr, intravenous, Continuous PRN, blood glucose less than 70 mg/dL, Starting on Sat11/08/23 at 2048, Use immediately following dextrose 50% or glucagon treatment for patients who are unconscious or NPO. Contact prescriber for additional orders. If blood glucose is not greater than 70 mg/dL after initial treatment, repeat treatment. dextrose 50 % in water (D50W) 50% solution 25 mL 25 mL, intravenous, As needed, low blood sugar, blood glucose less than 70 mg/dL and unconscious or NPO with IV access, Starting on Sat11/08/23 at 2048, Push over 1-3 minutes STAT. If conscious and not NPO, immediately follow with meal tray or high protein (7 grams) snack if tray not available. If NPO, initiate 5% dextrose in water at 100 mL/hr and contact prescriber for additional orders. If blood glucose is not greater than 70 mg/dL after initial treatment, repeat treatment. VESICANT (RED) Warning: HYPERTONIC solution. glucagon HCL injection 1 mg 1 mg, intramuscular, As needed, low blood sugar, blood glucose less than 70 mg/dL and unconscious or NPO without IV access., Starting on Sat11/08/23 at 2048, If conscious and not NPO, immediately follow with meal tray or high protein (7Grams) snack if tray not available. If NPO, initiate IV 5% Dextrose/Water at 100 mL/hr and contact prescriber for additional orders. If blood glucose is not greater than 70 mg/dL after initial treatment, repeat treatment. levalbuterol (XOPENEX) nebulizer solution 1.25 mg 1.25 mg, nebulization, Every 6 hours PRN, wheezing, shortness of breath, Starting on Sat11/08/23 at 2048, Ordered in place of albuterol due to: tachycardia, Implement INPATIENT/ED Bronchodilator Clinical Practice Guidelines? Yes, Document: \[email or web address].org\epic \EPIC_Reference\Orders\Re spiratory Care Guidelines\CPG Bronchodilator 2016.pdf 0217 (Given - Provider: Anat Grewal RCP)0751 (Given - Provider: Luz Peña RCP)1438 (Given - Provider: Luz Peña RCP)1928 (Given - Provider: Anat Grewal RCP) 0101 (Given - Provider: Anat Grewal RCP)0723 (Given - Provider: Liane Walton RCP)1424 (Given - Provider: Liane Walton RCP)2018 (Given - Provider: Anat Grewal RCP) 0108 (Given - Provider: Anat Grewal RCP)0740 (Given - Provider: Luz Peña RCP)1405 (Given - Provider: Luz Peña RCP)1913 (Due) magnesium sulfate IVPB 2000 mg/50 mL in iso-osmotic water (40 mg/mL premix) 2,000 mg, intravenous, at 25 mL/hr, Administer over 120 Minutes, As needed, Magnesium level 1.7 to 1.9 mg/dL, or Ionized Magnesium level 0.45 to 0.5 mmol/L., Starting on Sat11/08/23 at 2048, Recheck magnesium level 4 hours after infusion complete. With each magnesium result continue the replacement orders as needed. magnesium sulfate IVPB 4000 mg/100 mL in iso-osmotic water (40 mg/mL premix) 4,000 mg, intravenous, at 25 mL/hr, Administer over 240 Minutes, As needed, Magnesium level 1.6 mg/dL or less, or Ionized Magnesium level 0.44 mmol/L or less, Starting on Sat11/08/23 at 2048, Recheck magnesium level 4 hours after infusion complete. With each magnesium result continue the replacement orders as needed. ondansetron (PF) (ZOFRAN) injection 4 mg 4 mg, intravenous, Every 6 hours PRN, nausea, vomiting, Starting on Sat11/08/23 at 2048, Administer over 2-5 minutes. 0530 (Given - Provider: Viridiana Mao RN) 0519 (Given - Provider: Talita Salazar, RN) 0525 (Given - Provider: Talita Salazar, RN) potassium chloride (K-TAB,KLOR-CON) CR tablet 30-50 mEq(Linked Group 1) 30-50 mEq, oral, As needed, potassium supplementation, Starting on Sat11/08/23 at 2048, Progress to oral potassium replacement when patient tolerating oral intake. If dose administered, recheck potassium level 4 hours after last dose. For potassium level 3.4 to 3.8 mmol/L and GFR 30 mL/min or greater=30 mEq. For potassium level 3.1 to 3.3 mmol/L and GFR 30 mL/min or greater=40 mEq. For potassium level 3 mmol/L or less and GFR 30 mL/min or greater=50 mEq. Do not crush or chew. potassium chloride (KAYCIEL) 20 mEq/15 mL solution 30-50 mEq(Linked Group 1) 30-50 mEq, oral, As needed, potassium supplementation, Starting on Sat11/08/23 at 2048, Progress to oral potassium replacement when patient tolerating oral intake. If dose administered, recheck potassium level 4 hours after last dose. For potassium level 3.4 to 3.8 mmol/L and GFR 30 mL/min or greater=30 mEq. For potassium level 3.1 to 3.3 mmol/L and GFR 30 mL/min or greater=40 mEq. For potassium level 3 mmol/L or less and GFR 30 mL/min or greater=50 mEq. Must dilute before use - Mix in 3-8 ounces of water or juice before administration When administering in feeding tube, flush before and after per policy and monitor potassium levels sennosides-docusate sodium (SENOKOT-S) 8.6-50 mg 1 tablet 1 tablet, oral, Every 12 hours PRN, constipation, Starting on Sat11/08/23 at 2048 sodium chloride 0.9 % flush 3 mL 3 mL, intravenous, As needed, line care, before and after each intermittent use, Starting on Sat11/08/23 at 2048 sodium chloride 0.9 % flush bag 25 mL, intravenous, at 100 mL/hr, Administer over 15 Minutes, As needed, line care, line care after IVPB administration, Starting on Sat11/08/23 at 2048 sodium chloride 0.9 % infusion 20 mL/hr, intravenous, Continuous PRN, to maintain patency of lines, Starting on Sat11/08/23 at 2048 Linked Groups Order Group 1: potassium chloride (K-TAB,KLOR-CON) CR tablet 30-50 mEqJump to med 30-50 mEq, oral, As needed, potassium supplementation, Starting on Sat11/08/23 at 2048, Progress to oral potassium replacement when patient tolerating oral intake. If dose administered, recheck potassium level 4 hours after last dose. For potassium level 3.4 to 3.8 mmol/L and GFR 30 mL/min or greater=30 mEq. For potassium level 3.1 to 3.3 mmol/L and GFR 30 mL/min or greater=40 mEq. For potassium level 3 mmol/L or less and GFR 30 mL/min or greater=50 mEq. Do not crush or chew. Or potassium chloride (KAYCIEL) 20 mEq/15 mL solution 30-50 mEqJump to med 30-50 mEq, oral, As needed, potassium supplementation, Starting on Sat11/08/23 at 2048, Progress to oral potassium replacement when patient tolerating oral intake. If dose administered, recheck potassium level 4 hours after last dose. For potassium level 3.4 to 3.8 mmol/L and GFR 30 mL/min or greater=30 mEq. For potassium level 3.1 to 3.3 mmol/L and GFR 30 mL/min or greater=40 mEq. For potassium level 3 mmol/L or less and GFR 30 mL/min or greater=50 mEq. Must dilute before use - Mix in 3-8 ounces of water or juice before administration When administering in feeding tube, flush before and after per policy and monitor potassium levels Care Teams (unrecognized sec tion and content) Electronic Warfare Technical Relationship Specialty Start Date End Date Angelica Flores PA-C [address] [place], [place] [phone] PCP - General Physician Subway Repair Supervisor 11/08/23 Electronic Warfare Technical Relationship Specialty Start Date End Date Angelica Flores PA-C [address] [place], [place] [phone] PCP - General Physician Subway Repair Supervisor 11/08/23 Electronic Warfare Technical Relationship Specialty Start Date End Date Angelica Flores PA-C [address] [place] [id number] PCP - General Physician Subway Repair Supervisor 11/08/23 Electronic Warfare Technical Relationship Specialty Start Date End Date Angelica Flores PA-C [address] [place] [id number] PCP - General Physician Subway Repair Supervisor 11/08/23 Electronic Warfare Technical Relationship Specialty Start Date End Date Angelica Flores PA-C [address] [place] [address] [phone] PCP - General Physician Subway Repair Supervisor 11/08/23 Electronic Warfare Technical Relationship Specialty Start Date End Date Angelica Flores PA-C [address] [place] [id number] PCP - General Physician Subway Repair Supervisor 11/08/23 FOR RECORDS PERTAINING TO PATIENTS WHO ARE OR HAVE BEEN ENROLLED IN A CHEMICAL DEPENDENCY/SUBSTANCEABUSE PROGRAM, SOME INFORMATION MAY BE OMITTED. This clinical summary was aggregated from multiple sources. Caution should be exercised in using it in the provision of clinical care. This summary normalizes information from multiple sources, and as a consequence, information in this document may materially change the coding, format and clinical context of patient data. In addition, data may be omitted in some cases. CLINICAL DECISIONS SHOULD BE BASED ON THE PRIMARY CLINICAL RECORDS. [facility] [employer] [facility]. provides no warranty or guarantee of the accuracy or completeness of information in this document.
== END 2024-07-30 11:06 | disposition home or self-care (01) ==
LOC: MAMMO 11:06
PROVIDERS: PCP Physician Assistant; Visit Provider Obstetrics & Gynecology
DX: Z12.31 Encounter for screening mammogram for malignant neoplasm of breast (principal); Z80.3 Family history of malignant neoplasm of breast; Z80.1 Family history of malignant neoplasm of trachea, bronchus and lung
CPT/HCPCS: 77063; 77067

== ENCOUNTER 2024-08-04 11:32 | Outpatient (OUT) | payer MEDICARE, MEDICAID, SELFPAY ==
--- NOTE | 2024-08-04 11:37 | XR_ITS ---
[address] [address] Patient Name: DONNA BANERJEE MRN: [id number] date: 1970 Sex: F Assigned Patient Location: [facility] Current Patient Location: [facility] Accession/Order Number: [id number] Exam Date: 08/04/2024 11:40 Report Date: 08/04/2024 13:03 At the request of: ERENDIRA BELTRÁN Procedure: XR DEXA axial skeleton EXAMINATION: XR DEXA axial skeleton HISTORY: Postmenopausal COMPARISON: DEXA bone densitometry 07/27/2022 TECHNIQUE: Dual-energy X-ray absorptiometry (DXA) was performed. FINDINGS: SPINE ANALYSIS: Average bone mineral density is 0.892 g/cm2. T-score (standard deviation relative to young adult mean): -2.6 . -10.7% change since prior study. HIP ANALYSIS: Lowest bone mineral density is within the left femoral neck, 0.780 g/cm2. T-score (standard deviation relative to young adult mean): -1.9 . -6.3% change since prior study. XR/XR DEXA axial skeleton IMPRESSION: World Health Organization Classification: Osteoporosis - High Fracture Risk FRAX: Cannot be calculated. Pharmacologic treatment recommendations * No uniform recommendation applies to all patients. Management plans must be individualized. * Consider initiating pharmacologic treatment in postmenopausal women and men >= 50 years of age who have the following: Primary fracture prevention: * T-score <= - 2.5 at the femoral neck, total hip, lumbar spine, 33% radius (some uncertainty with existing data) by DXA. * Low bone mass (osteopenia: T-score between - 1.0 and - 2.5) at the femoral neck or total hip by DXA with a 10-year hip fracture risk >= 3% or a 10-year major osteoporosis-related fracture risk >= 20% (i.e., clinical vertebral, hip, forearm, or proximal humerus) based on the US-adapted FRAXregistered model. Secondary fracture prevention: * Fracture of the hip or vertebra regardless of BMD [4, 5]. * Fracture of proximal humerus, pelvis, or distal forearm in persons with low bone mass (osteopenia: T-score between - 1.0 and - 2.5). The decision to treat should be individualized in persons with a fracture of the proximal humerus, pelvis, or distal forearm who do not have osteopenia or low BMD [12, 13]. Sariah MS, Chidi SL, Vivienne KL, Elicia EM, Waqas KG, AJ, Sarthak ES. The clinician's guide to prevention and treatment of osteoporosis. Osteoporos Int. 2021;33(10):7271-6126. doi: 10.1007/o65283-201-40331-p. Epub 2021Feb 22. Erratum in: Osteoporos Int. 2021May 24;: PMID: [id number]; PMCID: [id number]. Electronically authenticated by: RENE MCLAIN Date: 08/04/2024 13:03
== END 2024-08-04 11:33 | disposition home or self-care (01) ==
LOC: RAD 11:33
PROVIDERS: PCP Physician Assistant; Visit Provider Obstetrics & Gynecology
DX: M81.0 Age-related osteoporosis without current pathological fracture (principal); Z78.0 Asymptomatic menopausal state
CPT/HCPCS: 77080

== ENCOUNTER 2024-09-30 07:39 | Outpatient (RCR) | payer MEDICARE, MEDICAID, SELFPAY ==
[2024-09-28 13:13] LABS: Calcium 8.7 mg/dL (8.5-10.1); Estimated GFR (African America >60 (>=60 mL/min/1.73m^2); Estimated GFR (Non-African Ame >60 (>=60 mL/min/1.73m^2)
[2024-09-30 13:25] VITALS: BP 111/66; PULSE 85; TEMP 36.9; O2SAT 95
[2024-09-30] MEDS: DENOSUMAB 60 MG/ML SYRINGE SUBQ (13:45)
== END 2024-10-01 07:56 | disposition home or self-care (01) ==
LOC: LAB 07:39
PROVIDERS: PCP Physician Assistant; Visit Provider Obstetrics & Gynecology
DX: M81.0 Age-related osteoporosis without current pathological fracture (principal)
CPT/HCPCS: 36415; 82310; 82565; 96372; J0897

== ENCOUNTER 2025-02-22 21:20 | Outpatient (REF) | payer MEDICARE, MEDICAID, SELFPAY ==
[2025-02-25 14:10] LABS: Age Gdln ACOG Testing Note (.); HPV Aptima Negative (Negative); IGP, Aptima HPV, rfx 16/18,45 Note (.)
== END 2025-02-22 21:21 | disposition home or self-care (01) ==
LOC: LAB 21:20
PROVIDERS: PCP Physician Assistant; Visit Provider Obstetrics & Gynecology
DX: Z01.419 Encounter for gynecological examination (general) (routine) without abnormal findings (principal)
CPT/HCPCS: 87624; 88175

== ENCOUNTER 2025-03-31 13:41 | Outpatient (RCR) | payer MEDICARE, MEDICAID, SELFPAY ==
[2025-03-31 14:10] VITALS: BP 147/81; PULSE 83; TEMP 36.3; O2SAT 96
[2025-03-31 14:24] LABS: Calcium 9.1 mg/dL (8.5-10.1); Estimated GFR (African America >60 (>=60 mL/min/1.73m^2); Estimated GFR (Non-African Ame >60 (>=60 mL/min/1.73m^2)
[2025-03-31] MEDS: DENOSUMAB 60 MG/ML SYRINGE SUBQ (14:30)
== END 2025-04-26 23:59 | disposition home or self-care (01) ==
LOC: INF 13:41
PROVIDERS: PCP Nurse Practitioner Family; Visit Provider Obstetrics & Gynecology
DX: M81.0 Age-related osteoporosis without current pathological fracture (principal)
CPT/HCPCS: 36415; 82310; 82565; 96372; J0897

== ENCOUNTER 2025-04-12 13:28 | Outpatient (OUT) | payer MEDICARE, MEDICAID, SELFPAY ==
--- NOTE | 2025-04-12 | CT_ITS ---
[address] [address] Patient Name: DONNA BANERJEE MRN: [id number] date: 1970 Sex: F Assigned Patient Location: CT Current Patient Location: CT Accession/Order Number: [id number] Exam Date: 04/12/2025 14:11 Report Date: 04/12/2025 14:14 At the request of: LARA HARLEY DO Procedure: CT lung screening low-dose CT CHEST WITHOUT CONTRAST, LOW DOSE SCREENING: CLINICAL DATA: A 54-year old former smoker COMPARISON: CT lung screen 03/31/2024 TECHNIQUE: Noncontrast axial CT scan images of the chest were obtained under the low dose screening CT protocol. Coronal and sagittal reconstructed images were also submitted. FINDINGS: Mediastinum : Suboptimal evaluation due to low-dose technique. Thoracic aorta appears normal in caliber. Pulmonary trunk appears nondilated. No pericardial effusion. No lymphadenopathy. The esophagus is grossly unremarkable. Lungs: No focal consolidation, pneumothorax or pleural effusion. Trachea and distal airways appear patent. Diffuse bronchial wall thickening. Emphysema. No suspicious noncalcified pulmonary nodule or mass. Upper abdomen: No acute findings. Bony thorax and chest wall: Soft tissues surrounding the chest wall demonstrate no acute findings. Osseous structures demonstrate degenerative change. Remote right-sided rib fracture. CT/CT lung screening low-dose IMPRESSION: NO SUSPICIOUS PULMONARY NODULE OR MASS. LUNG - RADS Version 1.0 Assessment: Category 1, Negative (No nodules and definitely benign nodules). Management: Continue annual lung screening with LDCT in 12 months. Impression dictated by: Reji Morris Jr., D.O. 04/12/2025 2:14 PM Dictation Location: [place] [address] Electronically authenticated by: [id number] Y Date: 04/12/2025 14:14
== END 2025-04-12 13:29 | disposition home or self-care (01) ==
LOC: CT 13:28
PROVIDERS: PCP Nurse Practitioner Family; Visit Provider Internal Medicine
DX: J45.40 Moderate persistent asthma, uncomplicated (principal); Z87.891 Personal history of nicotine dependence; J44.9 Chronic obstructive pulmonary disease, unspecified; Z12.2 Encounter for screening for malignant neoplasm of respiratory organs
CPT/HCPCS: 71271

== ENCOUNTER 2025-08-02 13:04 | Outpatient (OUT) | payer MEDICARE, MEDICAID, SELFPAY ==
--- NOTE | 2025-08-02 13:07 | MM_ITS ---
Patient Name: DONNA BANERJEE MR#: [id number] : 1970 Exam Date: 08/02/2025 Ordering Doctor: DR ERENDIRA BELTRÁN . RADIOLOGY REPORT PROCEDURE: MM TOMOSYNTHESIS SCREENING BI COMPARISON: MM TOMOSYNTHESIS SCREENING BI, 07/30/2024. MM TOMOSYNTHESIS SCREENING BI, 07/29/2023. MG MAMM SCREEN 3D MICHAEL CAD, 07/27/2022. MG MAMM MICHAEL SCRN W CAD DIG, 03/12/2013. INDICATIONS: Screening Calculator Name NCI Breast Cancer Risk Assessment Tool 5 Year Breast Cancer Risk 3.60% Lifetime Breast Cancer Risk 24.00% Personal Breast Cancer No Personal Ovarian Cancer No Treatments None Family Cancers Sister with breast cancer at age 51; Father with lung cancer at age 55; Aunt-paternal with lung cancer at age 60; Cousin-paternal with breast cancer at age 32. LOCATION: [facility] BREAST COMPOSITION: The breasts are heterogeneously dense, which may obscure small masses. FINDINGS: RIGHT BREAST: No significant suspicious finding. Benign-appearing lymph nodes are noted . similar focal asymmetries are present. Benign-appearing calcifications are present. LEFT BREAST: No significant suspicious finding. Benign-appearing lymph nodes are noted . similar focal asymmetries are present. Benign-appearing calcifications are present. DIAGNOSTIC CATEGORY 2--BENIGN FINDING. NO CHANGE FROM COMPARISON. RECOMMENDATIONS: ROUTINE MAMMOGRAM AND CLINICAL EVALUATION IN 12 MONTHS. Dictated by: Lamin Hedrick MD on 08/02/2025 at 17:33 Approved by: Lamin Hedrick MD on 08/02/2025 at 17:35
--- OUTSIDE RECORDS SUMMARY | 2025-08-02 13:09 | XMS_ITS | CCD ---
Author Organization [facility] Care Team Providers Care Wind Up Worker Name Role Phone ARASELI HUSSEINKimberley Cedillo Unavailable Unavailable YO HUSSEIN Mamadou Unavailable Unavailable Provider, None Unavailable Unavailable Provider, None Unavailable Unavailable Provider, None Unavailable Unavailable BO GIMENEZ Unavailable Unavailable CLIVE COVARRUBIAS Unavailable Unavailable EBRAHEIM, JOVANNI Admitting Unavailable EBRAHEIM, JOVANNI Attending Unavailable UNKNOWN, PHYSICIAN Primary Care Unavailable UNKNOWN, PHYSICIAN Referring Unavailable ABBAS, DR RODRIGUEZ Admitting Unavailable ABBAS, DR RODRIGUEZ Consulting Unavailable ABBAS, DR RODRIGUEZ Attending Unavailable REQUEST, NONE LISTED Primary Care Unavaila ble WEST, DR SHAKIRA Gillis Consulting Unavailable SOCORRO, CALVIN Attending Unavailable REQUEST, NONE LISTED Primary Care Unavaila ble SOCORRO, CALVIN Admitting Unavailable SOCORRO, CALVIN Consulting Unavailable SOCORRO, CALVIN Attending Unavailable REQUEST, NONE LISTED Primary Care Unavaila ble WEST, DR SHAKIRA Gillis Consulting Unavailable SOCORRO, CALVIN Admitting Unavailable SOCORRO, CALVIN Consulting Unavailable Unavailable Primary Care Provider Unavailabl e Perry MALT HOUSE SUPERVISOR-IT SECURITY ANALYST, Marcus Primary Care Provider [phone] Perry MALT HOUSE SUPERVISOR-IT SECURITY ANALYST, Marcus Primary Care Provider [phone] BO CHERY Attending Unavailable ANGELICA FLORES Referring Unavailable ANGELICA FLORES Primary Care Unavailable SHAKIRA MOSES Referring Unavailable PERRY, MARCUS Primary Care Unavailable FRANK BAPTISTE Attending Unavailable PERRY, MARCUS Referring Unavailable PERRY, MARCUS Primary Care Unavailable BO CHERY Attending Unavailable PERRY, MARCUS Referring Unavailable PERRY, MARCUS Primary Care Unavailable BO CHERY Attending Unavailable PERRY, MARCUS Referring Unavailable PERRY, MARCUS Primary Care Unavailable SHAKIRA MOSES Attending Unavailable PERRY, MARCUS Referring Unavailable PERRY, MARCUS Primary Care Unavailable SHAKIRA MOSES Attending Unavailable PERRY, MARCUS Referring Unavailable PERRY, MARCUS Primary Care Unavailable SHAKIRA MOSES Referring Unavailable PERRY, MARCUS Primary Care Unavailable SHAKIRA MOSES Attending Unavailable ANGELICA FLORES Referring Unavailable PERRY, MARCUS Primary Care Unavailable Myerholtz Diana CRAWFORD Primary Care Pro vider GLORIA, JIHAPeter T Attending Unavailable ANGELICA FLORES Referring Unavailable ANGELICA FLORES Primary Care Unavailable ABBAS, JIHAD T Attending Unavailable PERRY, MARCUS Referring Unavailable PERRY, MARCUS Primary Care Unavailable ABBAS, JIHAD T Attending Unavailable PERRY, MARCUS Referring Unavailable PERRY, MARCUS Primary Care Unavailable ABBAS, JIHAD T Attending Unavailable PERRY, MARCUS Referring Unavailable PERRY, MARCUS Primary Care Unavailable ABBAS, JIHAD T Attending Unavailable PERRY, MARCUS Referring Unavailable PERRY, MARCUS Primary Care Unavailable PERRY, MARCUS Referring Unavailable PERRY, MARCUS Primary Care Unavailable IZZY ELIZONDO Attending Unavailable ABBYESICA, MICHEALHAPeter T Attending Unavailable PERRY, MARCUS Referring Unavailable DIANA MICHELE Primary Care Unavailab CALVIN Samaniego Attending Unavailable CALVIN QUINTAINLLA Attending Unavailable BROWN, CHRISTOPHER Attending Unavailable BROWN, CHRISTOPHER Attending Unavailable BROWN, CHRISTOPHER Attending Unavailable BROWN, CHRISTOPHER Attending Unavailable BROWN, CHRISTOPHER Attending Unavailable GEORGE PATEL Attending Unavailable HONG CASTRO Admitting Unavailable HONG CASTRO Attending Unavailable PERRY, MARCUS Referring Unavailable PERRY, MARCUS Primary Care Unavailable BO CHERY Attending Unavailable BO CHERY Referring Unavailable PERRY, MARCUS Primary Care Unavailable PAUL AMANDA Referring Unavailable PERRY, MARCUS Primary Care Unavailable PERRY, MARCUS Referring Unavailable PERRY, MARCUS Primary Care Unavailable FRANK BAPTISTE Attending Unavailable PERRY, MARCUS Referring Unavailable PERRY, MARCUS Primary Care Unavailable PERRY, MARCUS Referring Unavailable PERRY, MARCUS Primary Care Unavailable PERRY, MARCUS Referring Unavailable PERRY, MARCUS Primary Care Unavailable PERRY, MARCUS Referring Unavailable PERRY, MARCUS Primary Care Unavailable BO CHERY Referring Unavailable PERRY, MARCUS Primary Care Unavailable BO CHERY Referring Unavailable PERRY, MARCUS Primary Care Unavailable ROCAEL GOETZ Attending Unavailable PERRY, MARCUS Referring Unavailable PERRY, MARCUS Primary Care Unavailable BO CHERY Admitting Unavailable BO CHERY Attending Unavailable PERRY, MARCUS Primary Care Unavailable JOHANNE ROYAL Attending Unavailable PERRY, [place] Primary Care Unavailable VERHOFF, ROCAEL N Attending Unavailable PERRY, MARCUS Referring Unavailable PERRY, [place] Primary Care Unavailable CASTRO, HONG E Admitting Unavailable CASTRO, HONG E Attending Unavailable PERRY, MARCUS Referring Unavailable PERRY, MARCUS Primary Care Unavailable CASTRO, HONG E Attending Unavailable CASTRO, HONG E Referring Unavailable PERRY, [place] Primary Care Unavailable VERHOFF, ROCAEL N Attending Unavailable PERRY, MARCUS Referring Unavailable PERRY, [place] Primary Care Unavailable BO CHERY Attending Unavailable CHERYBO GOMEZ Referring Unavailable PERRY, MARCUS Primary Care Unavailable VERHOFF, ROCAEL N Attending Unavailable PERRY, MARCUS Referring Unavailable PERRY, [place] Primary Care Unavailable KRYSTINA, MYRON Referring Unavailable MYERHOLTZ, DIANA K Primary Care Unavailab le KRYSTINA, MYRON Referring Unavailable MYERHOLTZ, DIANA K Primary Care Unavailab le VERHOFF, ROCAEL N Attending Unavailable PERRY, MARCUS Referring Unavailable MYERHOLTZ, DIANA K Primary Care Unavailab le CASTRO, HONG E Attending Unavailable CASTRO, HONG E Referring Unavailable MYERHOLTZ, DIANA K Primary Care Unavailab le CASTRO, HONG E Admitting Unavailable CASTRO, HONG E Attending Unavailable PERRY, MARCUS Referring Unavailable MYERHOLTZ, DIANA K Primary Care Unavailab le CASTRO, HONG E Admitting Unavailable CASTRO, HONG E Attending Unavailable PERRY, MARCUS Referring Unavailable MYERHOLTZ, DIANA K Primary Care Unavailab le CASTRO, HONG E Attending Unavailable CASTRO, HONG E Referring Unavailable MYERHOLTZ, DIANA K Primary Care Unavailab le Allergies Allergy Classification Reported Allergen(s) Allergy Type Date of Onset Reaction(s) Facility (20 sources) Latex; Translations: [Latex] Propensity to adverse reactions (disorder) 8 [facility] (20 sources) gabapentin; Translations: [GABAPENTIN] Drug Allergy 1 Anaphylaxis, Swelling [facility] Work Phone: (20 sources) Gentamicin; Translations: [GENTAMICIN] Drug Allergy 3 Rash [facility] (9 sources) Other Propensity to adverse reactions 4 [facility] (10 sources) Capsaicin; Translations: [CAPSAICIN] Drug Allergy 4 Unknown [facility] (12 sources) Capsaicin Drug Allergy 4 [facility] Work Phone: Medications Current Medications Medication Drug Class(es) Dates Sig (Normalized) Sig (Original) 8 hr acetaminophen 650 mg extended release oral tablet (20 sources) take 1 tablet by mouth every eight hours as needed for pain acetaminophen (TYLENOL ARTHRITIS) 650 mg 8 hr tablet Take 1 tablet (650 mg total) by mouth every 8 (eight) hours as needed for pain. Active [id number] 200 actuat albuterol 0.09 mg/actuat metered dose inhaler (20 sources) beta2-Adrenergic Agonist Start: 11-16-2022 take 2 puff(s) by inhalation every six hours as needed for wheezing albuterol (PROVENTIL HFA;VENTOLIN HFA) 90 mcg/actuation inhaler Indications: Bronchitis Inhale 2 puffs every 6 (six) hours as needed for wheezing. 18 g 11/16/2022 Active albuterol HFA (V entolin HFA) 90 mcg/act inhaler Active aspirin 325 mg delayed release oral tablet (20 sources) Platelet Aggregation Inhibitor, Nonsteroidal Anti-inflammatory Drug take 1 tablet by mouth in the morning aspirin 325 mg EC tablet Take 1 tablet (325 mg total) by mouth in the morning. Circulation, high risk for blood clots. Active aspirin 325 MG t ablet 1 (one) time each day at the same time Active 24 hr buPROPion hydrochloride 150 mg extended release oral tablet (3 sources) Aminoketone take 1 tablet by mouth every twenty-four hours at bedtime buPROPion XL (WELLBUTRIN XL) 150 mg 24 hr tablet Take 1 tablet (150 mg total) by mouth before bedtime. Active calcium carbonate 1500 mg / cholecalciferol 0.01 mg oral tablet (20 sources) Vitamin D Start: 9 take 1 tablet by mouth once daily in the morning CALCIUM 600 + D,3, 600 mg(1,500mg) -400 unit per tablet Indications: prevention of vitamin D deficiency Take 1 tablet by mouth in the morning. Indications: prevention of vitamin D deficiency. 3 07/23/2019 Active take 1 tablet by mouth once corina y Calcium Carb-Cholecalciferol 600-10 MG-MCG tablet Take 1 tablet by mouth Daily Active calcium citrate 600 mg and vitamin D3 (Citrical & Minerals + Vit D) 600-200 MG-UNIT tablet 1 (one) time each day at the same time Active calcium citrate 600 mg and vitamin D3 (Citrical & Minerals + Vit D) 600-200 MG-UNIT tablet (4 sources) calcium citrate 600 mg and vitamin D3 (Citrical & Minerals + Vit D) 600-200 MG-UNIT tablet 1 (one) time each day at the same time Active citalopram 20 mg oral tablet (10 sources) Serotonin Reuptake Inhibitor Start: 2024 End: 2025 take 1 tablet by mouth once daily citalopram (CeleXA) 20 MG tablet Indications: Hot flashes due to menopause Take 1 tablet (20 mg) by mouth Daily 30 tablet 11 02/22/2025 02/22/2026 Active 1 ml denosumab 60 mg/ml prefilled syringe (10 sources) RANK Ligand Inhibitor inject 1 mL by subcutaneous injection once denosumab (PROLIA) 60 mg/mL syringe injection Inject 1 mL (60 mg total) under the skin once. Active docosahexaenoic acid 120 mg / eicosapentaenoic acid 180 mg oral capsule (4 sources) take 1 capsule by mouth once daily omega-3 1000 MG capsule capsule Take 1,000 mg by mouth Daily Active doxycycline hyclate 100 mg oral capsule (9 sources) Tetracycline-class Drug Start: 2022 take 1 capsule by mouth in the morning doxycycline (Vibramycin) 100 MG capsule Take 100 mg by mouth in the morning and 100 mg before bedtime. 09/05/2023 Active DULoxetine 60 mg delayed release oral capsule (20 sources) Serotonin and Norepinephrine Reuptake Inhibitor Start: 2023 End: 2024 take 1 capsule by mouth in the morning DULoxetine (CYMBALTA) 60 mg capsule Indications: neuropathic pain Take 1 capsule (60 mg total) by mouth in the morning. Indications: neuropathic pain. 30 capsule 3 06/24/2025 Active take 1 capsule by mouth once sujey ly DULoxetine (Cymbalta) [address] capsule Take 1 capsule by mouth Daily Active fluticasone propionate 0.05 mg/actuat metered dose nasal spray (19 sources) Corticosteroid Start: 10-26-2024 take 1 spray(s) nasal route in the morning fluticasone propionate (FLONASE ALLERGY RELIEF) 50 mcg/actuation nasal spray Administer 1 spray into each nostril in the morning. 10/26/2024 Active fluticasone (Julián nase) 50 MCG/ACT nasal spray 1 (one) time each day at the same time Active 60 actuat fluticasone propionate 0.1 mg/actuat / salmeterol 0.05 mg/actuat dry powder inhaler (4 sources) Corticosteroid, beta2-Adrenergic Agonist Start: 12-27-2024 Fluticasone-Salmeterol 100-50 MCG/ACT aerosol powder Inhale 1 each if needed (wheezing) 12/27/2024 Active 60 actuat formoterol fumarate 0.005 mg/actuat / mometasone furoate 0.1 mg/actuat metered dose inhaler (19 sources) Corticosteroid, beta2-Adrenergic Agonist take 2 puff(s) by inhalation in the morning mometasone-formoterol (DULERA) 100-5 mcg/actuation inhaler Indications: maintenance therapy for asthma Inhale 2 puffs in the morning and 2 puffs before bedtime. Indications: controller medication for asthma. Active End: 02-22-2025 mometasone-formoterol (Duler a) 100-5 MCG/ACT inhaler 02/22/2025 Discontinued loratadine 10 mg oral tablet (20 sources) take 1 tablet by mouth once daily loratadine (CLARITIN) 10 mg tablet Indications: allergic rhinitis Take 1 tablet (10 mg total) by mouth nightly Indications: inflammation of the nose due to an allergy. Active 24 hr metFORMIN hydrochloride 500 mg extended release oral tablet (16 sources) Biguanide Start: 02-03-2025 take 1 tablet by mouth every twenty-four hours at mealtime metFORMIN XR (Glucophage-XR) 500 MG 24 hr tablet Take 500 mg by mouth in the evening. Take with meals 02/03/2025 Active Start: 07-18-2024 take 1 tablet by lydia th once daily at breakfast metFORMIN XR (GLUCOPHAGE XR) 500 mg 24 hr tablet Take 1 tablet (500 mg total) by mouth daily with breakfast. 30 tablet 11 07/18/2024 Active montelukast 10 mg oral tablet (20 sources) Leukotriene Receptor Antagonist take 1 tablet by mouth once daily montelukast (SINGULAIR) 10 mg tablet Indications: maintenance therapy for asthma Take 1 tablet (10 mg total) by mouth nightly Indications: controller medication for asthma. Active Multiple Vitamin (Multi Vitamin) tablet (9 sources) Multiple Vitamin (Multi Vitamin) tablet 1 (one) time each day at the same time Active stqsnqjo-cbxj-KZ-ca lcium &mins (THERAGRAN-M) 9 mg iron-400 mcg tablet (3 sources) dyrovdzx-cojh-AF -calciu m &mins (THERAGRAN-M) 9 mg iron-400 mcg tablet Take 1 tablet by mouth in the morning. Active omega 7-cuc-hzs-fish oil (Fish OiL) 300-1,000 mg capsule (12 sources) omega 3-dha-epa- fish oil (Fish OiL) 300-1,000 mg capsule Take by mouth. Active omeprazole 40 mg delayed release oral capsule (20 sources) Proton Pump Inhibitor Start: 07-19-20 20 take 1 capsule by mouth in the morning omeprazole (PriLOSEC) 40 mg capsule Indications: gastroesophageal reflux disease Take 1 capsule (40 mg total) by mouth in the morning. Indications: gastroesophageal reflux disease. 07/19/2020 Active ondansetron 4 mg oral tablet (20 sources) Serotonin-3 Receptor Antagonist Start: 03-18-20 18 take 1 tablet by mouth every six hours as needed for nausea and vomiting ondansetron (ZOFRAN) 4 mg tablet Take 1 tablet (4 mg total) by mouth every 6 (six) hours as needed for nausea or vomiting for up to 20 doses. 20 tablet 03/18/2018 Active Completed/Discontinued Medications Medication Drug Class(es) Dates Sig (Normalized) Sig (Original) cefadroxil 500 mg oral capsule (7 sources) Cephalosporin Antibacterial End: 02-22-2025 cefadroxil (Duricef) 500 MG capsule 02/22/2025 Discontinued lidocaine 0.05 mg/mg medicated patch (12 sources) Antiarrhythmic, Amide Local Anesthetic Start: 09-16-2024 End: 06-09-2025 apply 1 dose transdermal route once daily, then apply 1 dose transdermal route every twelve hours lidocaine (LIDODERM) 5 % Indications: Lumbar spondylosis , Disorder of sacrum Place 1 patch on the skin daily. Remove & Discard patch within 12 hours or as directed by 30 patch 11/04/2024 06/09/2025 Discontinued (Therapy completed) therapeutic multivitamin (THERAGRAN) tablet (11 sources) End: 06-09-2025 take 1 tablet by mouth in the morning therapeutic multivitamin (THERAGRAN) tablet Indications: vitamin deficiency prevention Take 1 tablet by mouth in the morning. Indications: treatment to prevent vitamin deficiency. 06/09/2025 Discontinued (Duplicate Listing) take 1 tablet by mouth in the mo rning therapeutic multivitamin (THERAGRAN) tablet Indications: vitamin deficiency prevention Take 1 tablet by mouth in the morning. Indications: treatment to prevent vitamin deficiency. Active Problems Active Problems Problem Classification Problem Date Documented Date Episodic/Chronic Administrative/social admission (2 sources) Patient encounter status; Translations: [Person consulting for explanation of examination or test findings] 09-01-2024 Episodic Chronic obstructive pulmonary disease and bronchiectasis (13 sources) Chronic obstructive lung disease; Translations: [Chronic obstructive pulmonary disease, unspecified] Onset: 11-08-2023 07-08-2024 Chronic Chronic ulcer of skin (2 sources) Non-pressure chronic ulcer of right calf with fat layer exposed; Translations: [Non-pressure chronic ulcer of right calf with fat layer exposed] Onset: 07-08-2024 Chronic Disorders of lipid metabolism (1 source) Pure hyperglyceridemia; Translations: [Pure hyperglyceridemia] Onset: 08-12-2024 Chronic Genitourinary symptoms and ill-defined conditions (20 sources) Incontinence; Translations: [Mixed incontinence] Onset: 11-22-2021 11-22-2021 Chronic Menopausal disorders (2 sources) Menopausal flushing; Translations: [Menopausal and female climacteric states] 02-22-2025 Chronic Osteoarthritis (15 sources) Arthritis of left knee; Translations: [Unilateral primary osteoarthritis, left knee] Onset: 12-18-2023 07-08-2024 Chronic Osteoporosis (2 sources) Postmenopausal osteoporosis; Translations: [Age-related osteoporosis without current pathological fracture] 09-01-2024 Chronic Other hereditary and degenerative nervous system conditions (1 source) Intention tremor; Translations: [Other specified forms of tremor] 03-03-2025 Chronic Other hereditary and degenerative nervous system conditions (2 sources) Other specified forms of tremor; Translations: [Other specified forms of tremor] Onset: 08-12-2024 Chronic Other nervous system disorders (12 sources) Chronic pain syndrome; Translations: [Chronic pain syndrome] Onset: 07-08-2024 07-08-2024 Chronic Other nervous system disorders (12 sources) Neuropathy; Translations: [Polyneuropathy, unspecified] Onset: 07-08-2024 07-08-2024 Chronic Other nervous system disorders (2 sources) Other chronic pain; Translations: [Other chronic pain] Onset: 11-25-2024 Chronic Other nutritional; endocrine; and metabolic disorders (13 sources) Disorder of mineral metabolism; 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, unspecified] Onset: 01-30-2017 07-31-2023 Chronic Other nutritional; endocrine; and metabolic disorders (13 sources) Severe obesity; Translations: [Class 3 severe obesity due to excess calories with body mass index (BMI) of 45.0 to 49.9 in adult] Onset: 07-08-2024 07-08-2024 Chronic Other nutritional; endocrine; and metabolic disorders (1 source) Disorder of mineral metabolism, unspecified; 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, unspecified] Onset: 01-04-2025 Chronic Other nutritional; endocrine; and metabolic disorders (1 source) Body mass index (BMI) 45.0-49.9, adult; Translations: [Body mass index (BMI) 45.0-49.9, adult] Onset: 07-08-2024 Chronic Other nutritional; endocrine; and metabolic disorders (1 source) Morbid (severe) obesity due to excess calories; Translations: [Morbid (severe) obesity due to excess calories] Onset: 07-08-2024 Chronic Residual codes; unclassified (3 sources) Pain; Translations: [Pain] Onset: 06-24-2024 Episodic Spondylosis; intervertebral disc disorders; other back problems (20 sources) Lumbar spondylosis; Translations: [Spondylosis without myelopathy or radiculopathy, lumbar region] Onset: 05-24-2021 11-04-2024 Chronic Unclassified (1 source) Injection Onset: 07-01-2024 Unclassified (1 source) 4-6 week follow up per dr ho from wound care Onset: 10-16-2024 Unclassified (1 source) Wound Check Onset: 08-07-2024 Unclassified (1 source) Obesity, class 3; Translations: [Obesity, class 3] Onset: 07-08-2024 Unclassified (1 source) Hospital Follow-up Onset: 07-31-2024 Unclassified (2 sources) Injections; Translations: [Injections] Onset: 12-30-2024 Unclassified (1 source) Back Injury Onset: 09-16-2024 Unclassified (1 source) Dressing Change Onset: 08-12-2024 Past or Other Problems Problem Classification Problem Date Documented Da te Episodic/Chronic Abdominal pain (1 source) Right upper quadrant pain; Translations: [Right upper quadrant pain] Onset: 03-24-2025 Episodic Calculus of urinary tract (15 sources) Kidney stone; Translations: [Calculus of kidney] Onset: 01-08-2017 08-11-2024 Episodic Diabetes mellitus without complication (12 sources) Prediabetes; Translations: [Prediabetes] Onset: 07-08-2024 07-08-2024 Episodic Fluid and electrolyte disorders (20 sources) Hypokalemia; Translations: [Hypokalemia] Onset: 11-08-2023 11-08-2023 Episodic Genitourinary symptoms and ill-defined conditions (13 sources) Kendall hematuria; Translations: [Gross hematuria] Onset: 01-08-2017 05-04-2024 Episodic Influenza (12 sources) Influenza due to Influenza A virus; Translations: [Influenza due to other identified influenza virus with other respiratory manifestations] Onset: 11-08-2023 11-11-2023 Episodic Mood disorders (7 sources) Mood disorders Onset: 03-03-2025 03-03-2025 Other bone disease and musculoskeletal deformities (1 source) Other specified disorders of bone density and structure, right thigh; Translations: [OTH D/O BONE DEN STRUCT RT THIGH] Onset: 07-30-2022 Episodic Other connective tissue disease (12 sources) Pain of left calf; Translations: [Pain in left lower leg] Onset: 03-21-2021 03-21-2021 Episodic Other diseases of veins and lymphatics (12 sources) Disorder of vein of lower extremity; Translations: [Venous insufficiency (chronic) (peripheral)] Onset: 07-23-2023 07-23-2023 Episodic Other diseases of veins and lymphatics (2 sources) Venous insufficiency (chronic) (peripheral); Translations: [Venous insufficiency (chronic) (peripheral)] Onset: 07-23-2023 Episodic Other injuries and conditions due to external causes (1 source) Unspecified injury of right ankle, initial encounter; Translations: [Unspecified injury of right ankle, initial encounter] Onset: 11-19-2017 Episodic Other lower respiratory disease (1 source) Pleurodynia; Translations: [Pleurodynia] Onset: 03-16-2025 Episodic Other nervous system disorders (1 source) Tremor Onset: 08-12-2024 Episodic Other non-traumatic joint disorders (1 source) Pain in right hip; Translations: [Pain in right hip] Onset: 07-01-2024 Episodic Other non-traumatic joint disorders (1 source) Pain in left hip; Translations: [Pain in left hip] Onset: 07-01-2024 Episodic Other non-traumatic joint disorders (1 source) Pain in right knee; Translations: [Pain in right knee] Onset: 05-06-2024 Episodic Other non-traumatic joint disorders (2 sources) Pain in left knee; Translations: [Pain in left knee] Onset: 11-25-2024 Episodic Other screening for suspected conditions (not mental disorders or infectious disease) (20 sources) Encounter for screening for malignant neoplasm of cervix; Translations: [Encounter for screening mammogram for malignant neoplasm of breast] Onset: 07-27-2022 Episodic Other upper respiratory infections (12 sources) Sore throat symptom; Translations: [Acute pharyngitis, unspecified] Onset: 07-08-2024 07-08-2024 Episodic Residual codes; unclassified (1 source) Asymptomatic [...] 07-30-2022 Episodic Respiratory failure; insufficiency; arrest (adult) (13 sources) Acute respiratory failure; Translations: [Acute respiratory failure with hypoxia] Onset: 11-09-2023 11-11-2023 Episodic Screening and history of mental health and substance abuse codes (12 sources) Ex-smoker; Translations: [Personal history of nicotine dependence] Onset: 07-08-2024 07-08-2024 Episodic Skin and subcutaneous tissue infections (14 sources) Cellulitis; Translations: [Cellulitis, unspecified] Onset: 07-07-2024 07-07-2024 Episodic Spondylosis; intervertebral disc disorders; other back problems (20 sources) Disorder of sacrum; Translations: [Sacrococcygeal disorders, not elsewhere classified] Onset: 03-21-2021 11-04-2024 Episodic Sprains and strains (12 sources) Strain of knee; Translations: [Strain of unspecified muscle(s) and tendon(s) at lower leg level, unspecified leg, initial encounter] Onset: 10-25-2017 07-08-2024 Episodic Urinary tract infections (12 sources) Urinary tract infectious disease; Translations: [Urinary tract infection, site not specified] Onset: 01-08-2017 01-14-2023 Episodic Varicose veins of lower extremity (20 sources) Varicose veins of lower extremity; Translations: [Varicose veins of bilateral lower extremities with pain] Onset: 11-24-2020 07-08-2024 Episodic Results Test Name Value Interpretation Reference Range Facility BEDSIDE GLUCOSEon 07-16-2025 Glucose [Mass/Vol] 129 mg/dL High 65-99 [facility] Comment on above: Performed By: #### C [facility], [facility], 93488-1 #### [facility] ([id number]) [address] [place] [address], [place] [address] 36on 07-13-2025 36 Spoke with the pt. A nd she Has been scheduled for all 3 injection Normal [facility] 36on 07-05-2025 36 [facility] authorization on file for APPROVAL SUPARTZ INJECTIONS - LEFT KNEE - 1X WEEKLY - X3 WEEKS Valid 07/05/2025 THRU 09/03/[address] all order's Normal [facility] Orders Onlyon 07-05-2025 Orders Only [id number] Nara Banerjee 1970 F Date Provider Department Center 07/05/2025 CARLIE BENTLEY MP ORTHO MPORTHO No family history on file [facility] Telephoneon 07-05-2025 Telephone [id number] Nara Banerjee S 1970 F Date Provider Department Center 07/05/2025 CARLIE BENTLEY MP No family history on file Reason for Visit and Comments: CSI LT KNEE APPROVAL [Other] [facility] BEDSIDE GLUCOSEon 07-02-2025 Glucose [Mass/Vol] 140 mg/dL High 65-99 [facility] Comment on above: Performed By: #### C BCA, CMP, 05217-5 #### [facility] ([id number]) [address] [place] [address], [place] [address] Office Visiton 06-30-2025 Follow-up visit [id number] Nara Banerjee S 1970 F Date Provider Department Center 06/30/2025 CARLIE BENTLEY MP No family history on file Level of Service:12424 DC OFFICE/OUTPATIENT ESTABLISHED LOW MDM 20 MIN (GC) Reason for Visit and Comments: Pain [136] - [facility] - here to submit for a C9 for a large joint injection [facility] 36on 06-01-2025 36 Reached out to the p t., received vm - left a detail message in regards to her appt. On 07/02/25 @ 10:15 am, letting her know that we needed to reschedule her, as Dr. Brown will be out of town on 07/02/25 and I have her rescheduled for 06/30/25 @ 10:15 am. I did state if this time doesn't work for her to please call @ [phone] and I will get her rescheduled, otherwise we will see her 06/30/25 @ 10:15 am. [facility] CALCIUMon 03-31-2025 Calcium [Mass/Vol] 9.1 mg/dL 8.5 - 10.1 mg/dL [facility] No Panel Informationon 03-31 [facility] CREATININEon 03-31-2025 Creatinine [Mass/Vol] 0.77 mg/dL 0.55 - 1.02 mg/dL [facility] GFR/1.73 sq M.predicted CKD-EPI (S/P/Bld) [Vol rate/Area] >60 >=60 mL/min/1.73 m 2 [facility] EGFR-NON AF BELARUSIAN >60 >=60 mL/min/1.73 m 2 [facility] US ABDOMEN LMTDon 03-25-2025 US ABDOMEN LMTD US ABDOMEN LMTD ABDOMEN LIMITED ULTRASOUND HISTORY: Right upper quadrant pain COMPARISON: 05/15/2021 FINDINGS: Pancreas: Pancreas difficult to visualize secondary to overlying bowel gas. Diffusely increased hepatic echogenicity compatible with hepatocellular disease, probably secondary to steatosis. Within these limits, no focal hepatic lesion. No intrahepatic biliary dilatation. Main portal vein is patent with appropriate direction of flow. Gallbladder surgically absent. Common duct measures 3 mm, within normal limits for patient's provided age. No visualized ascites. IMPRESSION: 1. Findings of hepatic steatosis. Finalized by Bj Vivas MD on 03/25/2025 9:34 PM Normal [facility] XR RIBS RT 3 VWS W PA CHESTo n 03-16-2025 XR RIBS RT 3 VWS W PA CHEST XR RIBS RT 3 VWS W PA CHEST EXAM: XR RIBS RT 3 VWS W PA CHEST CLINICAL INFORMATION: Rib pain on right side. COMPARISON: 05/19/2019 FINDINGS: There is no pulmonary edema or pleural effusions. The lungs are clear and well aerated. There is a normal cardiomediastinal silhouette. A cholecystectomy Dedicated views of the right ribs were obtained. There is no evidence for an acute displaced rib fracture. There is no pneumothorax or shift of the mediastinal structures. IMPRESSION: 1. No acute cardiopulmonary disease. There is no convincing acute displaced rib fracture or pneumothorax. Finalized by Aris Bradshaw MD on 03/16/2025 6:09 PM Normal [facility] IGP,APTIMA HPV,AGE GDLNon AGE GDLN ACOG TESTING Note . [facility] Comment on above: TESTS RESULT FLAG UN ITS REF RANGE LAB Clinician Provided Cytology Information Source.............Cervix;Endocervix No. of containers..01 ThinPrep Vial Age Xander SULLIVAN Oralia... FLAG LEGEND: L-Low Normal,H-High Normal,LL-Alert Low,HH-Alert High <-Panic Low,>-Panic High,A-Abnormal,AA-Critical Abnormal Performed at: 01 =[address] [address] Selena Medina MD, HPV APTIMA Negative Negative [facility] Comment on above: This nucleic acid am plification test detects fourteen high- risk HPV types (16,18,31,33,35,39,45,51,52,56,58,59,66,68) without differentiation. Performed at: =[address] [id number] [employer] Tank Repairer: Selena Medina MD, Phone: [phone] Performed at: [address] [id number] [employer] Repairer: Selena Medina MD, Phone: [phone] IGP, APTIMA HPV, RFX 16/18,45 Note . [facility] Comment on above: TESTS RESULT FLAG UN ITS REF RANGE LAB DIAGNOSIS: 02 NEGATIVE FOR INTRAEPITHELIAL LESION OR MALIGNANCY. Specimen adequacy: 02 Satisfactory for evaluation. No endocervical component is identified. Performed by: 02 Cely Saab Fast [employer] Manager . 02 Note: Note 02 The Pap smear is a screening test designed to aid in the detection of premalignant and malignant conditions of the uterine cervix. It is not a diagnostic procedure and should not be used as the sole means of detecting cervical cancer. Both false-positive and false-negative reports do occur. Test Methodology: Note 02 This liquid based ThinPrep(R) pap test was screened with the use of an image guided system. HPV Genotype Reflex Note 02 Criteria not met, HPV Genotype not performed. FLAG LEGEND: L-Low Normal,H-High Normal,LL-Alert Low,HH-Alert High <-Panic Low,>-Panic High,A-Abnormal,AA-Critical Abnormal Performed at: [address] [address] Selena Medina MD, BRUSH-SPATULA CERVIX ENDOCERVIX [facility] Urinalysis macro (dipstick) panel (U)on 02-22-2025 Bilirubin, UA Negative Negative - 4(70) +++ mg/dL [facility] Blood, UA Negative Negative - 50 Dennis/mcL [facility] Clarity, UA Clear [facility] Color, UA Yellow [facility] Glucose, UA Negative Negative - 1999(110) ++++ mg/dL [facility] Interpretation and review of laboratory results Abnormal [facility] Ketones, UA Positive Negative - 160(16) ++++ mg/dL [facility] Leukocytes, UA Negative Negative - 500+++ Chreise/mcL [facility] Nitrite, UA Negative Negative - Positive [facility] pH, UA 5.5 5 - 9 [facility] Protein, UA Negative Negative - 1999(20) ++++ mg/dL [facility] Spec Grav, UA 1.03 1 - 1.03 [facility] Urobilinogen, UA 0.2 0.2 - 12 mg/dL [facility] Office Visiton 12-30-2024 Follow-up visit [id number] Nara Banerjee gy S 1970 F Date Provider Department Center 12/30/2024 CARLIE BENTLEY MP No family history on file Level of Service:33343 DC OFFICE/OUTPT VISIT,PROCEDURE ONLY Reason for Visit and Comments: Injections [186] - [facility] States the injections are working very well. [facility] Office Visiton 12-25-2024 Follow-up visit [id number] Nara Banerjee gy S 1970 F Date Provider Department Center 12/25/2024 CARLIE BENTLEY MP No family history on file Level of Service:70564 DC OFFICE/OUTPT VISIT,PROCEDURE ONLY Reason for Visit and Comments: Pain [136] - Supartz inj Injections [186] - Supartz inj Normal [facility] XR ABDOMEN AP 1 VWon 025 XR ABDOMEN AP 1 VW XR ABDOMEN AP 1 VW Abdomen single view Clinical history: Kidney stone Status post ESWL Comparison July 27, 2024 Impression: * Appropriate bowel pattern. No acute findings. No radiopaque stones identified but sensitivity compromised by body habitus and overlying stool. Finalized by Alonso Morataya MD on 12/22/2024 5:01 PM [facility] Office Visiton 12-16-2024 Follow-up visit [id number] Nara Banerjee gy S 1970 F Date Provider Department Center 12/16/2024 CARLIE BENTLEY MP No family history on file Level of Service:35688 DC OFFICE/OUTPT VISIT,PROCEDURE ONLY Reason for Visit and Comments: Injections [186] - Supartz inj Pain [136] - Supartz inj [facility] 36on 12-15-2024 36 Spoke with the pt., to let her kow she has been approved for her gel inj. She is scheduled to start the series tomorrow [facility] 36on 12-09-2024 36 [facility] authorization on file for SUPARTZ INJECTIONS 1X WEEK FOR 3 WEEKS Valid 12/08/2024- 01/05/2025 [facility] Telephoneon 12-09-2024 Telephone [id number] Nara Banerjee S 1970 F Date Provider Department Center 12/09/2024 CARLIE BENTLEY MP ORTHO MPORTHO No family history on file [facility] Office Visiton 11-25-2024 Follow-up visit [id number] Nara Banerjee S 1970 F Date Provider Department Center 11/25/2024 CARLIE BENTLEY MP ORTHO MPORTHO No family history on file Level of Service:24449 DC OFFICE/OUTPATIENT ESTABLISHED SF MDM 10 MIN (GC) Reason for Visit and Comments: Follow-up [633664] - Here to submit a C9 for the Supartz inj Pain [136] - Here to submit a C9 for the Supartz inj [facility] CALCIUMon 09-28-2024 Calcium [Mass/Vol] 8.7 mg/dL 8.5 - 10.1 mg/dL [facility] No Panel Informationon 09-28 [facility] CREATININEon 09-28-2024 Creatinine [Mass/Vol] 0.85 mg/dL 0.55 - 1.02 mg/dL [facility] GFR/1.73 sq M.predicted CKD-EPI (S/P/Bld) [Vol rate/Area] >60 >=60 mL/min/1.73 m 2 [facility] EGFR-NON AF BELARUSIAN >60 >=60 mL/min/1.73 m 2 [facility] URINALYSISon 09-08-2024 Bilirubin Ql (U) Negative Normal NEG [facility] Comment on above: Performed By: #### C ALONDRA ESCOBAR, 16121-2 #### [facility] ([id number]) [address] [place] [address], [place] [address] BLOOD/HGB Negative Normal NEG [facility] Comment on above: Performed By: #### C ALONDRA ESCOBAR, #### [facility] ([id number]) [address] [place] [address] Color (U) YELLOW Normal YELLOW [facility] Comment on above: Performed By: #### C BCA, CMP, #### [facility] ([id number]) [address] [place] [address] Glucose Ql (U) Negative Normal NEG [facility] Comment on above: Performed By: #### C BCA, CMP, #### [facility] ([id number]) [address] [place] [address] Ketones Ql (U) Negative Normal NEG [facility] Comment on above: Performed By: #### C BCA, CMP, #### [facility] ([id number]) [address] [place] [address] [place] [address] Leukocyte esterase Test strip Ql (U) Negative Normal NEG [facility] Comment on above: Performed By: #### C BCA, CMP, #### [facility] ([id number]) [address] [place] [address] Nitrite Ql (U) Negative Normal NEG [facility] Comment on above: Performed By: #### C BCA, CMP, #### [facility] ([id number]) [address] [place] [address] [place] [address] pH (U) 6.5 [pH] Normal 5.0-8.5 [facility] Comment on above: Performed By: #### C BCA, CMP, #### [facility] ([id number]) [address] [place] [address] Protein Ql (U) Negative Normal NEG [facility] Comment on above: Performed By: #### C BCA, CMP, #### [facility] ([id number]) [address] [place] [address] Specific gravity (U) [Rel density] 1.025 Normal 1.003-1.035 [facility] Comment on above: Performed By: #### C ALONDRA ESCOBAR, 65270-2 #### [facility] ([id number]) [address] [place] [address]2015 TURBIDITY CLEAR Normal CLEAR [facility] Comment on above: Performed By: #### C SHAWN [facility], 67619-2 #### [facility] ([id number]) [address] [place] [address] Urobilinogen (U) [Mass/Vol] mg/dL Normal <1.1 [facility] Comment on above: Performed By: #### C SHAWN [facility], 17344-2 #### [facility] ([id number]) [address] [place] [address] URINE CULTUREon 09-08-2024 Bacteria identified Cx Nom (U) CULTURE RESULTS 10-50,000 ORGANISMS/mL NORMAL UROGENITAL TK Normal [facility] Comment on above: Performed By: #### C SHAWN, [facility], 61692-8 #### [facility] ([id number]) [address] [place] [address]702 COMPLETE BLOOD COUNTon 08-12 Erythrocyte distribution width (RBC) [Ratio] 15.0 % Normal 11.5-15.0 [facility] Comment on above: Performed By: #### 2 4331-1, CBC, CMP #### [facility] ([id number]) [address], [address] [place] [address] Hematocrit (Bld) [Volume fraction] 42.1 % Normal 35-47 [facility] Comment on above: Performed By: #### 2 4331-1, CBC, CMP #### [facility] ([id number]) [address], [address] [place] [address] Hemoglobin (Bld) [Mass/Vol] 13.4 g/dL Normal 11.7-15.5 [facility] Comment on above: Performed By: #### 2 4331-1, CBC, CMP #### [facility] ([id number]) [address], [facility] [address] [place] [address] MCH (RBC) [Entitic mass] 29.5 pg Normal 27-34 [facility] Comment on above: Performed By: #### 2 4331-1, CBC, CMP #### [facility] ([id number]) [address], [facility] [address] [place] [address] MCHC (RBC) [Mass/Vol] 31.9 g/dL Low 32-36 [facility] Comment on above: Performed By: #### 2 4331-1, CBC, CMP #### [facility] ([id number]) [address], [address] [place] [address] MCV (RBC) [Entitic vol] 93 fL Normal 80-100 [facility] Comment on above: Performed By: #### 2 4331-1, CBC, CMP #### [facility] ([id number]) [address], [facility] [address] [place] [address] Platelet mean volume (Bld) [Entitic vol] 8.2 fL Normal 7-12 [facility] Comment on above: Performed By: #### 2 4331-1, CBC, CMP #### [facility] ([id number]) [address], [address] [place] [address] Platelets (Bld) [#/Vol] 264 10*3/uL Normal 150-450 [facility] Comment on above: Performed By: #### 2 4331-1, CBC, CMP #### [facility] ([id number]) [address], [address] [place] [address] RBC COUNT 4.55 X10E12/L Normal 3.80-5.20 [facility] Comment on above: Performed By: #### 2 4331-1, CBC, CMP #### [facility] ([id number]) [address], [address] [place] [address] WBC (Bld) [#/Vol] 8.5 10*3/uL Normal 4.0-11.0 [facility] Comment on above: Performed By: #### 2 4331-1, CBC, CMP #### [facility] ([id number]) [address], [address] [place] [address] COMPREHENSIVE METABOLIC PANE Charles 08-12-2024 Albumin [Mass/Vol] 3.8 g/dL Normal 3.2-5.3 [facility] Comment on above: Performed By: #### C BCA, [facility], 08510-1 #### [facility] ([id number]) [address] [place] [address]843 ALP [Catalytic activity/Vol] 54 U/L Normal 39-130 [facility] Comment on above: Performed By: #### C BCA, [facility], 43368-0 #### [facility] ([id number]) [address] [place] [address] 24216 ALT [Catalytic activity/Vol] 11 U/L Normal 0-31 [facility] Comment on above: Performed By: #### C BCA, CMP, 70946-2 #### [facility] ([id number]) [address] [place] [address] Anion gap [Moles/Vol] 9 mmol/L Normal 5-15 [facility] Comment on above: Performed By: #### C BCA, CMP, 87452-9 #### [facility] ([id number]) [address] [place] [address]5781 AST [Catalytic activity/Vol] 15 U/L Normal 0-41 [facility] Comment on above: Performed By: #### C SHAWN [facility], 73164-8 #### [facility] ([id number]) [address] [place] [address]6760 Bilirubin [Mass/Vol] 0.6 mg/dL Normal 0.3-1.2 [facility] Comment on above: Performed By: #### C SHAWN [facility], #### [facility] ([id number]) [address] [place] [address] Calcium [Mass/Vol] 9.2 mg/dL Normal 8.5-10.5 [facility] Comment on above: Performed By: #### Darian ESCOBAR [facility], #### [facility] ([id number]) [address] [place] [address] Chloride [Moles/Vol] 102 mmol/L Normal 98-109 [facility] Comment on above: Performed By: #### Darian ESCOBAR [facility], #### [facility] ([id number]) [address] [place] [address] 46035 CO2 [Moles/Vol] 30 mmol/L Normal 22-32 [facility] Comment on above: Performed By: #### Darian ESCOBAR [facility], 54827-7 #### [facility] ([id number]) [address] [place] [address] 10050 Creatinine [Mass/Vol] 0.58 mg/dL Normal 0.40-1.00 [facility] Comment on above: Result Comment: METH OD TRACEABLE TO IDMS STANDARD Performed By: #### Darian ESCOBAR CMP, #### [facility] ([id number]) [address] [place] [address]10 eGFR (CKD-EPI) NON-RACE DEPENDENT >90 Normal >59 [facility] Comment on above: Result Comment: Reported eGFR is based on the CKD-EPI 2020 equation that does not use a race coefficient. Performed By: #### C SHAWN CMP, 03962-3 #### [facility] ([id number]) [address] [place] [address]19 Glucose [Mass/Vol] 111 mg/dL High 65-99 [facility] Comment on above: Performed By: #### C BCA, [facility], #### [facility] ([id number]) [address] [place] [address]109 Potassium [Moles/Vol] 4.4 mmol/L Normal 3.5-5.0 [facility] Comment on above: Performed By: #### C SHAWN [facility], 26432-6 #### [facility] ([id number]) [address] [place] [address] 24073 Protein [Mass/Vol] 7.8 g/dL Normal 6.0-8.0 [facility] Comment on above: Performed By: #### C SHAWN, [facility], 36725-0 #### [facility] ([id number]) [address] [place] [address] 29770 Sodium [Moles/Vol] 141 mmol/L Normal 134-146 [facility] Comment on above: Performed By: #### C SHAWN [facility], 77385-3 #### [facility] ([id number]) [address] [place] [address] 06922 Urea nitrogen [Mass/Vol] 15 mg/dL Normal 5-23 [facility] Comment on above: Performed By: #### C BCA, CMP, 10164-0 #### [facility] ([id number]) [address] [place] [address]35 Lipid 1996 panelon 4 Cholesterol [Mass/Vol] 178 mg/dL Normal 150-200 [facility] Comment on above: Performed By: #### C BCA, CMP, 79599-6 #### [facility] ([id number]) [address] [place] [address]188 Cholesterol in HDL [Mass/Vol] 45 mg/dL Normal >39 [facility] Comment on above: Result Comment: HDL <40 mg/dL - High Risk HDL > or = 40mg/dL- Desirable HDL >60 mg/dL - Negative Risk Performed By: #### Darian ESCOBAR CMP, 71298-1 #### [facility] ([id number]) [address] [place] [address]1657 Cholesterol in LDL [Mass/Vol] 86 mg/dL Normal <130 [facility] Comment on above: Result Comment: LDL <100 mg/dL - Desirable LDL >160 mg/dL - High Risk Performed By: #### Darian ESCOBAR CMP, 03735-3 #### [facility] ([id number]) [address] [place] [address] Cholesterol in VLDL [Mass/Vol] 47 mg/dL High 0-30 [facility] Comment on above: Performed By: #### Darian ESCOBAR CMP, 43739-9 #### [facility] ([id number]) [address] [place] [address]398 CHOLESTEROL:HDL 4.0 Normal 1.0-5.0 [facility] Comment on above: Performed By: #### Darian ESCOBAR CMP, 96308-5 #### [facility] ([id number]) [address] [place] [address] 56883 Triglyceride [Mass/Vol] 234 mg/dL High 27-150 [facility] Comment on above: Performed By: #### Darian ESCOBAR CMP, 62065-8 #### [facility] ([id number]) [address] [facility], [place] [address] 37on 07-31-2024 37 Continue to monitor for signs and symptoms of infection including fever, chills, shortness of breath, chest pain, abdominal pain, nausea, vomiting and diarrhea. RLE redness, warmth, worsening pain. Call our office if you notice any of these or go to the ED if needing to Aquaphor or Eucerin lotion Normal [facility] Follow-Upon 07-31-2024 Follow-Up [id number] Nara Banerjee gy S 1970 F Date Provider Department Center 07/31/2024 161-[facility] No family history on file Level of Service:11899 DC OFFICE/OUTPATIENT ESTABLISHED LOW MDM 20 MIN Normal [facility] XR ABDOMEN AP 1 VWon 024 XR ABDOMEN AP 1 VW XR ABDOMEN AP 1 VW CLINICAL HISTORY: Kidney stones Comparison: None Views: 1 view FINDINGS: * 8.8 mm stone overlying lower pole left kidney. * Bowel gas pattern nonobstructive. Clips in the pelvis. * Degenerative changes lower lumbar spine. IMPRESSION: * Left renal nephrolithiasis Finalized by Angelica Molina MD on 07/28/2024 6:12 AM Normal [facility] BASIC METABOLIC PANLon 07-27 Anion gap [Moles/Vol] 10 mmol/L Normal 5-15 [facility] Comment on above: Performed By: #### B MELISA CBCA #### [facility] ([id number]) [address] [place] [address] Calcium [Mass/Vol] 9.5 mg/dL Normal 8.5-10.5 [facility] Comment on above: Performed By: #### B MELISA, CBCA #### [facility] ([id number]) [address] [place] [address] Chloride [Moles/Vol] 101 mmol/L Normal 98-109 [facility] Comment on above: Performed By: #### B PAMELA VINCENT #### [facility] ([id number]) [address], [address] [place] [address] CO2 [Moles/Vol] 30 mmol/L Normal 22-32 [facility] Comment on above: Performed By: #### B PAMELA VINCENT #### [facility] ([id number]) [address] [place] [address] Creatinine [Mass/Vol] 0.65 mg/dL Normal 0.40-1.00 [facility] Comment on above: Result Comment: METH OD TRACEABLE TO IDMS STANDARD Performed By: #### PAMELA Hansen MP #### [facility] ([id number]) [address] [place] [address] eGFR (CKD-EPI) NON-RACE DEPENDENT >90 Normal >59 [facility] Comment on above: Result Comment: Reported eGFR is based on the CKD-EPI 2020 equation that does not use a race coefficient. Performed By: #### PAMELA Hansen MP #### [facility] ([id number]) [address], [address] [place] [address] Glucose [Mass/Vol] 107 mg/dL High 65-99 [facility] Comment on above: Performed By: #### PAMELA Hansen MP #### [facility] ([id number]) [address], [address] [place] [address] Potassium [Moles/Vol] 4.4 mmol/L Normal 3.5-5.0 [facility] Comment on above: Performed By: #### PAMELA Hansen MP #### [facility] ([id number]) [address] [address] [place] [address] Sodium [Moles/Vol] 141 mmol/L Normal 134-146 [facility] Comment on above: Performed By: #### PAMELA Hansen MP #### [facility] ([id number]) [address], [address] [place] [address] Urea nitrogen [Mass/Vol] 15 mg/dL Normal 5-23 [facility] Comment on above: Performed By: #### B MP, CBCA #### [facility] ([id number]) [address], [address] [place] [address] CBC AND AUTO DIFFon 07-27-20 24 ABSOLUTE BASOPHIL 0.2 X10E9/L Normal 0.0-0.2 [facility] Comment on above: Performed By: #### B MP, CBCA #### [facility] ([id number]) [address] [address] [place] [address] ABSOLUTE NEUTROPHIL 5.6 X10E9/L Normal 1.5-6.6 [facility] Comment on above: Performed By: #### B MP, CBCA #### [facility] ([id number]) [address] [address] [place] [address] Basophils/100 WBC (Bld) 2.0 % Normal [facility] Comment on above: Performed By: #### B MP, CBCA #### [facility] ([id number]) [address], [address] [place] [address] Eosinophils (Bld) [#/Vol] 0.3 10*3/uL Normal 0.0-0.4 [facility] Comment on above: Performed By: #### B MP, CBCA #### [facility] ([id number]) [address] [address] [place] [address] Eosinophils/100 WBC (Bld) 3.1 % Normal [facility] Comment on above: Performed By: #### B MP, CBCA #### [facility] ([id number]) [address] [address] [place] [address] Erythrocyte distribution width (RBC) [Ratio] 14.3 % Normal 11.5-15.0 [facility] Comment on above: Performed By: #### B MP, CBCA #### [facility] ([id number]) [address], [address] [place] [address] Hematocrit (Bld) [Volume fraction] 37.9 % Normal 35-47 [facility] Comment on above: Performed By: #### B MP, CBCA #### [facility] ([id number]) [address] [place] [address] Hemoglobin (Bld) [Mass/Vol] 12.4 g/dL Normal 11.7-15.5 [facility] Comment on above: Performed By: #### B MELISA, CBCA #### [facility] ([id number]) [address] [place] [address] Lymphocytes (Bld) [#/Vol] 2.9 10*3/uL Normal 1.0-3.5 [facility] Comment on above: Performed By: #### B MELISA, CBCA #### [facility] ([id number]) [address] [place] [address] Lymphocytes/100 WBC (Bld) 29.7 % Normal [facility] Comment on above: Performed By: #### B MELISA, CBCA #### [facility] ([id number]) [address] [place] [address] MCH (RBC) [Entitic mass] 30.6 pg Normal 27-34 [facility] Comment on above: Performed By: #### B MP, CBCA #### [facility] ([id number]) [address] [address] [place] [address] MCHC (RBC) [Mass/Vol] 32.8 g/dL Normal 32-36 [facility] Comment on above: Performed By: #### B MELISA, CBCA #### [facility] ([id number]) [address] [place] [address] MCV (RBC) [Entitic vol] 93 fL Normal 80-100 [facility] Comment on above: Performed By: #### B MP, CBCA #### [facility] ([id number]) [address] [place] [address] Monocytes (Bld) [#/Vol] 0.6 10*3/uL Normal 0-0.9 [facility] Comment on above: Performed By: #### B MP, CBCA #### [facility] ([id number]) [address], [facility] [address] [place] [address] Monocytes/100 WBC (Bld) 6.5 % Normal [facility] Comment on above: Performed By: #### B MP, CBCA #### [facility] ([id number]) [address] [place] [address] Neutrophils/100 WBC (Bld) 58.7 % Normal [facility] Comment on above: Performed By: #### B MP, CBCA #### [facility] ([id number]) [address] [place] [address] Platelet mean volume (Bld) [Entitic vol] 7.9 fL Normal 7-12 [facility] Comment on above: Performed By: #### B MP, CBCA #### [facility] ([id number]) [address] [address] [place] [address] Platelets (Bld) [#/Vol] 490 10*3/uL High 150-450 [facility] Comment on above: Performed By: #### B MP, CBCA #### [facility] ([id number]) [address] [address] [place] [address] RBC COUNT 4.06 X10E12/L Normal 3.80-5.20 [facility] Comment on above: Performed By: #### B MP, CBCA #### [facility] ([id number]) [address], [address] [place] [address] WBC (Bld) [#/Vol] 9.6 10*3/uL Normal 4.0-11.0 [facility] Comment on above: Performed By: #### B MP, CBCA #### [facility] ([id number]) [address], [address] [place] [address] 36on 07-21-2024 36 Has an appointment [facility] 36on 07-20-2024 36 Please schedule this patient in 1-2 weeks. Normal [facility] Telephoneon 07-20-2024 Telephone [phone] Nara Banerjee 1970 F Date Provider Department Center 07/20/2024 [facility] No family history on file Normal [facility] CBC AND AUTO DIFFon 07-19-20 ABSOLUTE BASOPHIL 0.1 X10E9/L Normal 0.0-0.2 [facility] Comment on above: Performed By: #### Darian ESCOBAR, , CMP #### [facility] ([id number]) [address] [place] [address] ABSOLUTE NEUTROPHIL 7.1 X10E9/L High 1.5-6.6 [facility] Comment on above: Performed By: #### Darian ESCOBAR, 15504-6, CMP #### [facility] ([id number]) [address] [place] [address] 24352 Basophils/100 WBC (Bld) 1.2 % Normal [facility] Comment on above: Performed By: #### Darian ESCOBAR, 65293-8, CMP #### [facility] ([id number]) [address] [place] [address] Eosinophils (Bld) [#/Vol] 0.3 10*3/uL Normal 0.0-0.4 [facility] Comment on above: Performed By: #### Darian ESCOBAR, , CMP #### [facility] ([id number]) [address] [place] [address] 34001 Eosinophils/100 WBC (Bld) 2.8 % Normal [facility] Comment on above: Performed By: #### Darian ESCOBAR, , CMP #### [facility] ([id number]) [address] [place] [address] 13023 Erythrocyte distribution width (RBC) [Ratio] 14.1 % Normal 11.5-15.0 [facility] Comment on above: Performed By: #### Darian ESCOBAR, , CMP #### [facility] ([id number]) [address] [place] [address] 28651 Hematocrit (Bld) [Volume fraction] 32.0 % Low 35-47 [facility] Comment on above: Performed By: #### Darian ESCOBAR, , CMP #### [facility] ([id number]) [address] [place] [address]4967 Hemoglobin (Bld) [Mass/Vol] 10.2 g/dL Low 11.7-15.5 [facility] Comment on above: Performed By: #### Darian ESCOBAR, , CMP #### [facility] ([id number]) [address] [place] [address] 006[address] Lymphocytes (Bld) [#/Vol] 2.2 10*3/uL Normal 1.0-3.5 [facility] Comment on above: Performed By: #### Darian ESCOBAR, , CMP #### [facility] ([id number]) [address] [place] [address] 33082 Lymphocytes/100 WBC (Bld) 20.4 % Normal [facility] Comment on above: Performed By: #### Darian ESCOBAR, , CMP #### [facility] ([id number]) [address] [place] [address] 89808 MCH (RBC) [Entitic mass] 29.8 pg Normal 27-34 [facility] Comment on above: Performed By: #### Darian ESCOBAR, , CMP #### [facility] ([id number]) [address] [place] [address] 19428 MCHC (RBC) [Mass/Vol] 32.0 g/dL Normal 32-36 [facility] Comment on above: Performed By: #### Darian ESCOBAR, , CMP #### [facility] ([id number]) [address] [place] [address] 46157 MCV (RBC) [Entitic vol] 93 fL Normal 80-100 [facility] Comment on above: Performed By: #### Darian ESCOBAR, , CMP #### [facility] ([id number]) [address] [place] [address] 88605 Monocytes (Bld) [#/Vol] 1.1 10*3/uL High 0-0.9 [facility] Comment on above: Performed By: #### Darian ESCOBAR, , CMP #### [facility] ([id number]) [address] [place] [address] 21974 Monocytes/100 WBC (Bld) 10.1 % Normal [facility] Comment on above: Performed By: #### Darian ESCOBAR, , CMP #### [facility] ([id number]) [address] [place] [address] 92040 Neutrophils/100 WBC (Bld) 65.5 % Normal [facility] Comment on above: Performed By: #### Darian ESCOBAR, , CMP #### [facility] ([id number]) [address] [place] [address] 28901 Platelet mean volume (Bld) [Entitic vol] 7.8 fL Normal 7-12 [facility] Comment on above: Performed By: #### Darian ESCOBAR, , CMP #### [facility] ([id number]) [address] [place] [address] 47088 Platelets (Bld) [#/Vol] 516 10*3/uL High 150-450 [facility] Comment on above: Performed By: #### Darian ESCOBAR, , CMP #### [facility] ([id number]) [address] [place] [address] 82965 RBC COUNT 3.44 X10E12/L Low 3.80-5.20 [facility] Comment on above: Performed By: #### Darian ESCOBAR, , CMP #### [facility] ([id number]) [address] [place] [address] 88738 WBC (Bld) [#/Vol] 10.9 10*3/uL Normal 4.0-11.0 [facility] Comment on above: Performed By: #### Darian ESCOBAR, , CMP #### [facility] ([id number]) [address] [place] [address] 67376 COMPREHENSIVE METABOLIC PANE Charles 07-19-2024 Albumin [Mass/Vol] 2.6 g/dL Low 3.2-5.3 [facility] Comment on above: Performed By: #### Darian ESCOBAR, , CMP #### [facility] ([id number]) [address] [place] [address] 47491 ALP [Catalytic activity/Vol] 66 U/L Normal 39-130 [facility] Comment on above: Performed By: #### Darian ESCOBAR, , CMP #### [facility] ([id number]) [address] [place] [address] 27104 ALT [Catalytic activity/Vol] 9 U/L Normal 0-31 [facility] Comment on above: Performed By: #### Darian ESCOBAR, , CMP #### [facility] ([id number]) [address] [place] [address] 93612 Anion gap [Moles/Vol] 9 mmol/L Normal 5-15 [facility] Comment on above: Performed By: #### Darian ESCOBAR, , CMP #### [facility] ([id number]) [address] [place] [address] 10662 AST [Catalytic activity/Vol] 14 U/L Normal 0-41 [facility] Comment on above: Performed By: #### Darian ESCOBAR, , CMP #### [facility] ([id number]) [address] [place] [address] 11084 Bilirubin [Mass/Vol] 0.5 mg/dL Normal 0.3-1.2 [facility] Comment on above: Performed By: #### Darian ESCOBAR, , CMP #### [facility] ([id number]) [address] [place] [address] 51617 Calcium [Mass/Vol] 8.5 mg/dL Normal 8.5-10.5 [facility] Comment on above: Performed By: #### Darian ESCOBAR, , CMP #### [facility] ([id number]) [address] [place] [address] [place] [address] Chloride [Moles/Vol] 99 mmol/L Normal 98-109 [facility] Comment on above: Performed By: #### Darian ESCOBAR, , CMP #### [facility] ([id number]) [address] [place] [address] 03773 CO2 [Moles/Vol] 30 mmol/L Normal 22-32 [facility] Comment on above: Performed By: #### Darian ESCOBAR, , CMP #### [facility] ([id number]) [address] [place] [address] 12013 Creatinine [Mass/Vol] 0.57 mg/dL Normal 0.40-1.00 [facility] Comment on above: Result Comment: METH OD TRACEABLE TO IDMS STANDARD Performed By: #### C SHAWN, , CMP #### [facility] ([id number]) [address] [place] [address] 56844 eGFR (CKD-EPI) NON-RACE DEPENDENT >90 Normal >59 [facility] Comment on above: Result Comment: Reported eGFR is based on the CKD-EPI 2020 equation that does not use a race coefficient. Performed By: #### C SHAWN, , CMP #### [facility] ([id number]) [address] [place] [address] 29722 Glucose [Mass/Vol] 114 mg/dL High 65-99 [facility] Comment on above: Performed By: #### Darian ESCOBAR, , CMP #### [facility] ([id number]) [address] [place] [address] 37538 Potassium [Moles/Vol] 4.2 mmol/L Normal 3.5-5.0 [facility] Comment on above: Performed By: #### Darian ESCOBAR, , CMP #### [facility] ([id number]) [address] [place] [address] 11096 Protein [Mass/Vol] 8.1 g/dL High 6.0-8.0 [facility] Comment on above: Performed By: #### C SHAWN, , CMP #### [facility] ([id number]) [address] [place] [address] 15791 Sodium [Moles/Vol] 138 mmol/L Normal 134-146 [facility] Comment on above: Performed By: #### Darian ESCOBAR, , CMP #### [facility] ([id number]) [address] [place] [address] 52687 Urea nitrogen [Mass/Vol] 12 mg/dL Normal 5-23 [facility] Comment on above: Performed By: #### Darian ESCOBAR, , CMP #### [facility] ([id number]) [address] [place] [address] 48065 MAGNESIUMon 07-19-2024 Magnesium [Mass/Vol] 2.0 mg/dL Normal 1.8-2.6 [facility] Comment on above: Performed By: #### Darian ESCOBAR, , CMP #### [facility] ([id number]) [address] [place] [address] 23381 CBC AND AUTO DIFFon 07-18-20 ABSOLUTE BASOPHIL 0.1 X10E9/L Normal 0.0-0.2 [facility] Comment on above: Performed By: #### Darian ESCOBAR, [facility], #### [facility] ([id number]) [address] [place] [address] 24298 ABSOLUTE NEUTROPHIL 8.4 X10E9/L High 1.5-6.6 [facility] Comment on above: Performed By: #### Darian ESCOBAR, ALONDRA, 10015-5 #### [facility] ([id number]) [address] [place] [address] 85984 Basophils/100 WBC (Bld) 0.6 % Normal [facility] Comment on above: Performed By: #### Darian ESCOBAR, CMP, 69911-3 #### [facility] ([id number]) [address] [place] [address] 56696 Eosinophils (Bld) [#/Vol] 0.3 10*3/uL Normal 0.0-0.4 [facility] Comment on above: Performed By: #### Darian ESCOBAR, CMP, #### [facility] ([id number]) [address] [place] [address] 09451 Eosinophils/100 WBC (Bld) 2.6 % Normal [facility] Comment on above: Performed By: #### Darian ESCOBAR [facility], #### [facility] ([id number]) [address] [place] [address] 75715 Erythrocyte distribution width (RBC) [Ratio] 14.5 % Normal 11.5-15.0 [facility] Comment on above: Performed By: #### Darian ESCOBAR [facility], #### [facility] ([id number]) [address] [place] [address] 93137 Hematocrit (Bld) [Volume fraction] 30.9 % Low 35-47 [facility] Comment on above: Performed By: #### Darian ESCOBAR [facility], #### [facility] ([id number]) [address] [place] [address] 60816 Hemoglobin (Bld) [Mass/Vol] 9.9 g/dL Low 11.7-15.5 [facility] Comment on above: Performed By: #### Darian ESCOBAR [facility], #### [facility] ([id number]) [address] [place] [address] 42118 Lymphocytes (Bld) [#/Vol] 2.0 10*3/uL Normal 1.0-3.5 [facility] Comment on above: Performed By: #### Darian ESCOBAR CMP, #### [facility] ([id number]) [address] [place] [address] 76387 Lymphocytes/100 WBC (Bld) 16.9 % Normal [facility] Comment on above: Performed By: #### Darian ESCOBAR CMP, #### [facility] ([id number]) [address] [place] [address] 33283 MCH (RBC) [Entitic mass] 29.8 pg Normal 27-34 [facility] Comment on above: Performed By: #### Darian ESCOBAR CMP, #### [facility] ([id number]) [address] [place] [address] 86172 MCHC (RBC) [Mass/Vol] 32.1 g/dL Normal 32-36 [facility] Comment on above: Performed By: #### Darian ESCOBAR CMP, #### [facility] ([id number]) [address] [place] [address] 39227 MCV (RBC) [Entitic vol] 93 fL Normal 80-100 [facility] Comment on above: Performed By: #### Darian ESCOBAR CMP, #### [facility] ([id number]) [address] [place] [address] 19102 Monocytes (Bld) [#/Vol] 1.1 10*3/uL High 0-0.9 [facility] Comment on above: Performed By: #### Darian ESCOBAR CMP, #### [facility] ([id number]) [address] [place] [address] 28812 Monocytes/100 WBC (Bld) 9.2 % Normal [facility] Comment on above: Performed By: #### Darian ESCOBAR CMP, #### [facility] ([id number]) [address] [place] [address] 45456 Neutrophils/100 WBC (Bld) 70.7 % Normal [facility] Comment on above: Performed By: #### Darian ESCOBAR CMP, #### [facility] ([id number]) [address] [place] [address] 85883 Platelet mean volume (Bld) [Entitic vol] 7.9 fL Normal 7-12 [facility] Comment on above: Performed By: #### Darina ESCOBAR CMP, 91573-3 #### [facility] ([id number]) [address] [place] [address] 47837 Platelets (Bld) [#/Vol] 490 10*3/uL High 150-450 [facility] Comment on above: Performed By: #### C BCA, CMP, 13557-6 #### [facility] ([id number]) [address] [place] [address] 76158 RBC COUNT 3.33 X10E12/L Low 3.80-5.20 [facility] Comment on above: Performed By: #### C SHAWN, CMP, 63760-7 #### [facility] ([id number]) [address] [place] [address] 10093 WBC (Bld) [#/Vol] 11.9 10*3/uL High 4.0-11.0 [facility] Comment on above: Performed By: #### C BCA, CMP, 50998-7 #### [facility] ([id number]) [address] [place] [address] 68714 COMPREHENSIVE METABOLIC PANE Charles 07-18-2024 Albumin [Mass/Vol] 2.5 g/dL Low 3.2-5.3 [facility] Comment on above: Performed By: #### C BCA, CMP, 42872-4 #### [facility] ([id number]) [address] [place] [address] 40685 ALP [Catalytic activity/Vol] 70 U/L Normal 39-130 [facility] Comment on above: Performed By: #### C BCA, CMP, 19260-2 #### [facility] ([id number]) [address] [place] [address] 65975 ALT [Catalytic activity/Vol] 10 U/L Normal 0-31 [facility] Comment on above: Performed By: #### C BCA, CMP, 88863-0 #### [facility] ([id number]) [address] [place] [address] 10175 Anion gap [Moles/Vol] 10 mmol/L Normal 5-15 [facility] Comment on above: Performed By: #### C BCA, CMP, 44578-2 #### [facility] ([id number]) [address] [place] [address] 34237 AST [Catalytic activity/Vol] 14 U/L Normal 0-41 [facility] Comment on above: Performed By: #### C BCA, CMP, 51877-2 #### [facility] ([id number]) [address] [place] [address] 12336 Bilirubin [Mass/Vol] 0.4 mg/dL Normal 0.3-1.2 [facility] Comment on above: Performed By: #### C SHAWN, [facility], #### [facility] ([id number]) [address] [place] [address] 38704 Calcium [Mass/Vol] 8.1 mg/dL Low 8.5-10.5 [facility] Comment on above: Performed By: #### C SHAWN, [facility], #### [facility] ([id number]) [address] [place] [address] 25412 Chloride [Moles/Vol] 99 mmol/L Normal 98-109 [facility] Comment on above: Performed By: #### C BCA, CMP, 97431-7 #### [facility] ([id number]) [address] [place] [address] 17467 CO2 [Moles/Vol] 27 mmol/L Normal 22-32 [facility] Comment on above: Performed By: #### C BCA, CMP, 50656-2 #### [facility] ([id number]) [address] [place] [address] 45892 Creatinine [Mass/Vol] 0.62 mg/dL Normal 0.40-1.00 [facility] Comment on above: Result Comment: METH OD TRACEABLE TO IDMS STANDARD Performed By: #### C ALONDRA ESCOBAR, #### [facility] ([id number]) [address] [place] [address] 50602 eGFR (CKD-EPI) NON-RACE DEPENDENT >90 Normal >59 [facility] Comment on above: Result Comment: Reported eGFR is based on the CKD-EPI 2020 equation that does not use a race coefficient. Performed By: #### C ALONDRA ESCOBAR, #### [facility] ([id number]) [address] [place] [address] 81999 Glucose [Mass/Vol] 153 mg/dL High 65-99 [facility] Comment on above: Performed By: #### Darian ESCOBAR [facility], 83942-4 #### [facility] ([id number]) [address] [place] [address] 54679 Potassium [Moles/Vol] 4.1 mmol/L Normal 3.5-5.0 [facility] Comment on above: Performed By: #### C SHAWN [facility], 76609-9 #### [facility] ([id number]) [address] [place] [address] 52382 Protein [Mass/Vol] 7.7 g/dL Normal 6.0-8.0 [facility] Comment on above: Performed By: #### C SHAWN [facility], 60012-1 #### [facility] ([id number]) [address] [place] [address] 09669 Sodium [Moles/Vol] 136 mmol/L Normal 134-146 [facility] Comment on above: Performed By: #### C SHAWN [facility], 70007-7 #### [facility] ([id number]) [address] [place] [address] 46330 Urea nitrogen [Mass/Vol] 11 mg/dL Normal 5-23 [facility] Comment on above: Performed By: #### C SHAWN, [facility], 27395-0 #### [facility] ([id number]) [address] [place] [address] MAGNESIUMon 07-18-2024 Magnesium [Mass/Vol] 1.9 mg/dL Normal 1.8-2.6 [facility] Comment on above: Performed By: #### C SHAWN, [facility], 58373-9 #### [facility] ([id number]) [address] [place] [address] Cytology Cervical or vaginal smear or scraping studyon 02-17-2024 [facility] VC VENOUS REFLUX NOÉ LMTon 0 03-12-2023 VC VENOUS REFLUX NOÉ LMT Patient: NIKOLE BANERJEE Exam Date: 03/12/2023 : 1970 Gender:F Ordering : DR JENNIFER HO M.D. Admission #: [id number] Family : Order #: [id number] CLICK HERE TO VIEW EXAM RADIOLOGY REPORT [...] chronic thrombus visualized Compressibility: Normal Flow: Normal Strategic Planning Specialist: Dist/med calf 3.8mm with 0s reflux. Tech [...] Mary MD on 03/12/2023 at 12:10 Normal [facility] Pap IG, rfx Aptima HPV, rfx 16/18,45on 02-20-2023 . . Normal [facility] Comment on above: Result Comment: Perf ormed at: WB Performed By: #### P APHR2A #### [facility] [address] [place], [place] [id number] Dr. Marco Antonio Joshi DIAGNOSIS: Comment Normal [facility] Comment on above: Result Comment: NEGA TIVE FOR INTRAEPITHELIAL LESION OR MALIGNANCY. Performed at: WB Performed By: #### P APHR2A #### [facility] [address] [place] [address] Dr. Marco Antonio Joshi HPV Aptima Negative Normal Negative [facility] Comment on above: Result Comment: This nucleic acid amplification test detects fourteen high-risk HPV types (16,18,31,33,35,39,45,51,52,56,58,59,66,68) without differentiation. Performed at: =G Performed By: #### P APHR2A #### [facility] [address] [place] [address] Dr. Marco Antonio Joshi HPV Genotype Reflex Comment Normal [facility] Comment on above: Result Comment: Crit eria not met, HPV Genotype not performed. Performed at: WB Performed By: #### P APHR2A #### [facility] [address] [place] [address] Dr. Marco Antonio Joshi Methodology: Comment Normal [facility] Comment on above: Result Comment: This liquid based ThinPrep(R) pap test was screened with the use of an image guided system. Performed at: WB Performed By: #### P APHR2A #### [facility] [address] [place] [address] Dr. Marco Antonio Joshi Note: Comment Normal [facility] Comment on above: Result Comment: The Pap [...] Performed By: #### P APHR2A #### [facility] [address] [place] [address] Dr. Marco Antonio Joshi Performed by: Comment Normal [facility] Comment on above: Result Comment: Sabrina Vaughn, Bareback Rider (ASCP) Performed at: WB Performed By: #### P APHR2A #### [facility] [address] [address] [address] Marco Antonio Joshi Specimen adequacy: Comment Normal [facility] Comment on above: Result Comment: Sati sfactory for evaluation. Endocervical and/or squamous metaplastic cells (endocervical component) are present. Performed at: WB Performed By: #### P APHR2A #### [facility] [address] [address] [address] Marco Antonio Joshi MG MAMM SCREEN 3D NOÉ CADon 07-27-2022 MG MAMM SCREEN 3D NOÉ CAD Patient: NIKOLE BANERJEE Exam Date: 07/27/2022 : 1970 Gender:F Ordering : DR CALVIN QUINTANILLA . Admission #: [id number] Family : Order #: [id number] CLICK HERE TO VIEW EXAM RADIOLOGY REPORT PROCEDURE: MAMMOGRAM SCREENING 3D BILATERAL CAD COMPARISON: MG MAMM SCREEN NOÉ W CAD, 07/25/2020. MG MAMM SCREEN 3D NOÉ CAD, 07/26/2021. INDICATIONS: Screening mammography Calculator Name NCI Breast Cancer Risk Assessment Tool 5 Year Breast Cancer Risk 1.50% Lifetime Breast Cancer Risk 12.70% Personal Breast Cancer No Personal Ovarian Cancer No Treatments None Family Cancers Father with lung cancer at age 55; Aunt-paternal with lung cancer at age 60; Cousin-paternal with breast cancer at age 32. LOCATION: [facility] BREAST COMPOSITION: Heterogeneously dense,which may obscure [...] Mary MD on 07/27/2022 at 15:29 Normal [facility] XR DEXA BONE DENSITYon 07-27 XR DEXA [...] by: SHAKIRA MARY Date: 2022-07-27 18:06 Normal [facility] MRI KNEE WO CONTRAST LEFTon 09-27-2021 MRI KNEE WO CONTRAST LEFT [facility] Department of Radiology [address] [place] [address] Patient Name: NIKOLE BANERJEE : 1970 Sex: F Age: Race: NA Pt. Location: Patient Status: D Ordered Date: 09/20/2021 12:10:00 PM Completed Date: 09/27/2021 01:36 PM Requesting Provider: JOVANNI YOU Attending Provider: JOVANNI YOU Report Copy To: UNKNOWN, PHYSICIAN Signs & Symptoms: Y49.105B Strain of unsp musc/tend at lower leg level, left leg, init I10 History: [place], R breast marker Comments: , , , [...] injury. Electronically signed: Martha Bazan. Transcribed by: [email or web address], User Resident: Electronically Signed by: MARTHA BAZAN @ 09/29/2021 04:02 PM Normal [facility] Comment on above: Order Comment: , , = ========= , Ordering Provider - JOVANNI YOU MD , KNEE LEFT 3 [facility] 08-02-2021 KNEE LEFT 3 S [facility] Department of Radiology [address] [place] [address] Patient Name: NIKOLE BANERJEE : 1970 Sex: F Age: Race: NA Pt. Location: 84 Patient Status: O Ordered Date: 08/02/2021 11:25:00 AM Completed Date: 08/02/2021 11:36 AM Requesting Provider: JOVANNI YOU Attending Provider: JOVANNI YOU Report Copy To: Signs & Symptoms: M25.562 Pain in left knee I10 History: [place]ot Comments: Evaluate Exam: KNEE LEFT 3 VWS KNEE LEFT 3 S 08/02/2021 11:36 AM CLINICAL INDICATIONS: M25.562 Pain [...] osteoarthritis. Electronically signed: Jaren Hay. Transcribed by: [email or web address], User Resident: Electronically Signed by: JAREN HAY @ 08/02/2021 11:48 AM Normal [facility] Comment on above: Order Comment: Evalu ate Coding Summary.on 01-04-2020 Coding Summary. CODING DATE: 020 FINAL [facility] STATUS: Home (Routine DC) PAYOR: Medicaid ADMIT [...] CphT Date Saved: 01/04/2020 10:19 am Normal [facility] CT Maxillofacial w/o Contras ton 01-03-2020 CT [...] Terry MD Transcribed by: RAVIN Technologist: EMILY Normal [facility] ED Noteon 11-19-2017 HIM IP Note OR Tap Dancer Normal [facility] ED Provider Noteon 8 HIM IP Note OR Tap Dancer Normal [facility] XR ANKLE RIGHT STANDARDon XR ANKLE RIGHT STANDARD EXAMINATION:3 VIEWS OF THE RIGHT ANKLE11/19/2017 7:04 pmCOMPARISON:None.HISTORY:Reas on for exam:->fall, twisted ankle, pain to lateral [...] by:SINCERE Roseigned by:Sixto Zelaya MD11/19/17inal result Normal [facility] Outside Recordson 10-01-2017 Outside Records [id number] Normal [facility] ED Clinical Summaryon 2016 ED Clinical Summary [facility] ? Urgent [id number] [id number] clinical SummaryPERSON INFORMATIONName: NIKOLE BANERJEE Age: 46 Years Sex: FEMALEDOB: [birth year] MRN: Acct#:Visit Reason: work physical; PRE EMPLOYMENT FOR [employer] Arrival:09/26/17 15:48:28 Discharge: 09/26/17 16:30:00LOS: 000 00:42 Check In: 09/26/17 15:48:28 Checkout: 09/26/17 16:30:00Address:[facility] [id number]: Provider, NonePROVIDER INFORMATIONProvider Role Assigned UnassignedYO PEREZ ED PA 09/26/17 15:52:07SmCarolyn greene ED Nurse 09/26/17 15:54:15VITALS INFORMATIONVital Sign Triage LatestTemperature TympanicTemperature Temporal ArteryPulse Rate 60 bpm 60 bpmO2 Sat 98 % 98 %Respiratory Rate 18 br/min 18 br/minBlood Pressure 108 mmHg/72 mmHg 108 mmHg/72 mmHgMEDICAL INFORMATIONMedications Given:Allergy Information:LatexPHYSICIAN DOCUMENTATIONPatient: NIKOLE BANERJEE : 46 years Sex: FEMALE : [birth year]Associated Diagnoses: Physical examAuthor: YO PEREZ [id number] female presenting to urgent care with complaint of needing a work physical. 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 She states that she will be working with any In-home healthcare. She states she currently does this position with another company this is a second job. She does admit to being a smoker.Health StatusAllergies:No active allergies have been recorded.ObjectiveCONST: -Well-developed well-nourished. -Acute distress: No -Vitals: reviewed.SKIN: -Gross abnormalities: NoEYES: -EOM intact, FABBY: -Sclera conjunctiva: Unremarkable.ENT: - pharynx pink and moist.NECK: -Supple (fqxk-vb-htujg): non-tender.CARD: -Rate and rhythm: Regular -Edema: No [...] and PlanAssessment and Plan: Diagnosis: Physical exam ([id number] Z00.00).46-year-old female present to urgent care for [...] discharged.DISCHARGE INFORMATION:Discharge Disposition: HomeDischarge Location: HomePATIENT EDUCATION INFORMATIONInstructions:Follow -Up:DIAGNOSIS:Physical examComment: Normal [facility] ED Note - Physicianon 2016 ED Note - Physician Patient: NIKOLE BANERJEE : 46 years Sex: FEMALE : [birth year]Associated Diagnoses: Physical examAuthor: YO PEREZ [id number]-[id number] female presenting to urgent care with complaint of needing a work physical. 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 She states that she will be working with any In-home healthcare. She states she currently does this position with another [employer] this is a second job. She does admit to being a smoker.Health StatusAllergies:No active allergies have been recorded.ObjectiveCONST: -Well-developed well-nourished. -Acute distress: No -Vitals: reviewed.SKIN: -Gross abnormalities: NoEYES: -EOM intact, FABBY: -Sclera conjunctiva: Unremarkable.ENT: - pharynx pink and moist.NECK: -Supple (jels-eh-wjfbz): non-tender.CARD: -Rate and rhythm: Regular -Edema: No [...] and PlanAssessment and Plan: Diagnosis: Physical exam ([id number] Z00.00).46-year-old female present to urgent care for [...] on: 09/26/2017 16:32 EST] YO PEREZ Normal [facility] ED Patient Summaryon 017 ED Patient Summary [facility] ? Urgent [id number] [place] [address] pATIENT DISCHARGE INSTRUCTIONSPatient InformationName: NIKOLE BANERJEE Age: 46 YearsDate of : [birth year]MRN: [id number] [facility]: [id number] For Visit: work physical; PRE EMPLOYMENT FOR ECIArrival Time: 09/26/17 15:48:28Phone: Primary Care Physician: Provider, NoneAttending Physician: YO PEREZ HComment:Patient EducationMedication Information:The exam and treatment you received today in the [facility] Emergency Department were for an urgent problem and are not intended as complete care. It is important for you to follow up with a doctor, nurse practitioner, or physician?s district administrative assistant for ongoing care. If your symptoms [...] number so we can reach you if necessary.[facility] Department has provided you with a complete list of medications post discharge. Please inform your district manager primary care sales/provider of your visit and for further instruction on these medications. Any specific questions regarding your chronic medications and dosages should be discussed with your primary care physician(s) and/or pharmacist. Medications to Continue That Have Not ChangedOther Medicationsacetaminophen-hydro codone (Agency 5 mg-325 mg oral tablet) 1 tab(s) [...] Weight: 105.0 kg Body Mass Index: 43.7 kg/v8Vazfvlzc List:Problem Onset CommentsAsthmaKidney stonesMurmur, cardiacThrombophlebitisMajor Tests and Procedures:The following procedures and tests were performed during your ED visit.LaboratoryRadiologyCardi ology Viruses or BacteriaWhat?s got you sick?Antibiotics only [...] for Disease Control and Prevention June 2014 [facility] Vital Signs Date Time Vital Sign Value Performing Clinician Facility 06-09-2025 13:05-0400 Body height 154.9 cm Rocael Verhoff PA-C Work Phone: [facility] 06-09-2025 13:05-0400 Body mass index (BMI) [Ratio] 49.69 kg/m2 Rocael Verhoff PA-C Work Phone: [facility] 06-09-2025 13:05-0400 Body weight 119.3 kg Rocael Verhoff PA-C Work Phone: [facility] 06-09-2025 13:05-0400 Diastolic blood pressure 89 mm[Hg] Rocael Verhoff PA-C Work Phone: [facility] 06-09-2025 13:05-0400 Heart rate 95 /min Rocael Verhoff PA-C Work Phone: [facility] 06-09-2025 13:05-0400 Respiratory rate 18 /min Rocael Verhoff PA-C Work Phone: [facility] 06-09-2025 13:05-0400 SaO2% (BldA) [Mass fraction] 96 % Rocael Verhoff PA-C Work Phone: [facility] 06-09-2025 13:05-0400 Systolic blood pressure 153 mm[Hg] Rocael Verhoff PA-C Work Phone: [facility] 04-16-2025 14:19-0400 Body height 154.9 cm Jennifer Ho MD Work Phone: [facility] 04-16-2025 14:19-0400 Body mass index (BMI) [Ratio] 50.64 kg/m2 Jennifer Ho MD Work Phone: [facility] 04-16-2025 14:19-0400 Body weight 121.56 kg Jennifer Ho MD Work Phone: [facility] 04-16-2025 14:19-0400 Diastolic blood pressure 56 mm[Hg] Jennifer Ho MD Work Phone: [facility] 04-16-2025 14:19-0400 Systolic blood pressure 118 mm[Hg] Jennifer Ho MD Work Phone: [facility] 03-10-2025 12:58-0400 Body height 154.9 cm Rocael Verhoff PA-C Work Phone: [facility] 03-10-2025 12:58-0400 Body mass index (BMI) [Ratio] 50.64 kg/m2 Rocael Verhoff PA-C Work Phone: [facility] 03-10-2025 12:58-0400 Body weight 121.56 kg Rocael Verhoff PA-C Work Phone: [facility] 03-10-2025 12:58-0400 Diastolic blood pressure 92 mm[Hg] Rocael Verhoff PA-C Work Phone: [facility] 03-10-2025 12:58-0400 Heart rate 97 /min Rocael Verhoff PA-C Work Phone: [facility] 03-10-2025 12:58-0400 Respiratory rate 16 /min Rocael Verhoff PA-C Work Phone: [facility] 03-10-2025 12:58-0400 SaO2% (BldA) [Mass fraction] 100 % Rocael Verhoff PA-C Work Phone: [facility] 03-10-2025 12:58-0400 Systolic blood pressure 151 mm[Hg] Rocael Verhoff PA-C Work Phone: [facility] 03-03-2025 14:17-0400 Body height 154.9 cm Frank Baptiste PA-C Work Phone: [facility] 03-03-2025 14:17-0400 Body mass index (BMI) [Ratio] 48.37 kg/m2 Frank MARTI-C Work Phone: [facility] 03-03-2025 14:17-0400 Body weight 116.12 kg Frank Emile MARTI-C Work Phone: [facility] 03-03-2025 14:17-0400 Diastolic blood pressure 85 mm[Hg] Frank Emile MARTI-C Work Phone: [facility] 03-03-2025 14:17-0400 Heart rate 91 /min Frank Emile MARTI-C Work Phone: [facility] 03-03-2025 14:17-0400 Systolic blood pressure 129 mm[Hg] Frank Emile MARTI-C Work Phone: [facility] 02-22-2025 14:25-0400 Body mass index (BMI) [Ratio] 50.79 kg/m2 Calvin Socorro DO Work Phone: [facility] 02-22-2025 14:25-0400 Body weight 121.93 kg Calvin Socorro DO Work Phone: [facility] 02-22-2025 14:25-0400 Diastolic blood pressure 78 mm[Hg] Calvin Socorro DO Work Phone: [facility] 02-22-2025 14:25-0400 Systolic blood pressure 130 mm[Hg] Calvin Socorro DO Work Phone: [facility] 01-04-2025 14:22-0400 Body height 154.9 cm Bo Chery MD Work Phone: [facility] 01-04-2025 14:22-0400 Body mass index (BMI) [Ratio] 48.37 kg/m2 Bo Chery MD Work Phone: [facility] 01-04-2025 14:22-0400 Body weight 116.12 kg Bo Chery MD Work Phone: [facility] 01-04-2025 14:22-0400 Diastolic blood pressure 77 mm[Hg] [facility] 01-04-2025 14:22-0400 Heart rate 90 /min Bo [facility] 01-04-2025 14:22-0400 Systolic blood pressure 134 mm[Hg] Bo Chery MD Work Phone: [facility] 12-09-2024 12:53-0500 Diastolic blood pressure 69 mm[Hg] Rocael Verhoff PA-C [facility] 12-09-2024 12:53-0500 Heart rate 95 /min Rocael Verhoff PA-C Work Phone: [facility] 12-09-2024 12:53-0500 Respiratory rate 16 /min Rocael Verhoff PA-C Work Phone: [facility] 12-09-2024 12:53-0500 SaO2% (BldA) [Mass fraction] 96 % Rocael Verhoff PA-C [facility] 12-09-2024 12:53-0500 Systolic blood pressure 121 mm[Hg] Rocael Verhoff PA-C [facility] 11-04-2024 13:09-0500 Body height 154.9 cm Rocael Verhoff PA-C Work Phone: [facility] 11-04-2024 13:09-0500 Body mass index (BMI) [Ratio] 48.37 kg/m2 Rocael Verhoff PA-C [facility] 11-04-2024 13:09-0500 Body weight 116.12 kg Rocael Verhoff PA-C [facility] 11-04-2024 13:09-0500 Diastolic blood pressure 104 mm[Hg] Rocael Verhoff PA-C Work Phone: [facility] 11-04-2024 13:09-0500 Heart rate 83 /min Rocael Verhoff PA-C Work Phone: [facility] 11-04-2024 13:09-0500 SaO2% (BldA) [Mass fraction] 97 % Rocael Verhoff PA-C Work Phone: [facility] 11-04-2024 13:09-0500 Systolic blood pressure 147 mm[Hg] Rocael Verhoff PA-C Work Phone: [facility] 09-01-2024 14:22-0500 Body mass index (BMI) [Ratio] 48.94 kg/m2 Calvin Socorro DO Work Phone: [facility] 09-01-2024 14:22-0500 Body weight 117.48 kg Calvin Socorro DO Work Phone: [facility] Healthcare Encounters Encounter Date Encounter Type Care Provider Facility Start: 07-16-2025 End: 07-16-2025 ambulatory [facility] Start: 07-02-2025 End: 07-02-2025 ambulatory [facility] Start: 06-30-2025 End: 06-30-2025 ambulatory [facility] Start: 06-24-2025 End: 06-24-2025 Gail Carmichael RN [facility] Start: 06-10-2025 End: 06-10-2025 ambulatory CALVINWilfredo QUINTANILLA Not Available Start: 06-09-2025 End: 06-09-2025 Office outpatient visit 25 minutes Rocael Matti Verhoff PA-C Work Phone: [facility] Comment on above: Lumbar spondylosis ( Primary Dx) Start: 06-09-2025 End: 06-09-2025 ambulatory ROCAEL N VERBERNARDOFF [facility] Start: 04-16-2025 End: 04-16-2025 ambulatory JENNIFER HO [facility] [place] Start: 04-16-2025 End: 04-16-2025 Office outpatient visit 15 minutes Jennifer Ho MD Work Phone: [facility] Comment on above: Class 3 severe obesi ty due to excess calories with body mass index (BMI) of 45.0 to 49.9 in adult ([facility]) (Primary Dx); Venous stasis ulcer of right calf with fat layer exposed with varicose veins ([facility]); Varicose veins of bilateral lower extremities with pain Start: 04-06-2025 End: 04-22-2025 Telephone encounter Rocael Goetz PA-C Work Phone: [facility] Start: 04-01-2025 End: 04-13-2025 Telephone encounter Gabby Jones RN [facility] Start: 03-31-2025 End: 03-31-2025 Clinisync Result Encounter Calvin Socorro DO Work Phone: [facility] External [facility] Unsolicited Start: 03-31-2025 End: 03-31-2025 Clinisync Result Encounter Calvin Socorro DO Work Phone: [facility] External [facility] Unsolicited Start: 03-24-2025 End: 03-24-2025 ambulatory [facility] Start: 03-16-2025 End: 03-16-2025 ambulatory [facility] Start: 03-10-2025 End: 03-10-2025 Office outpatient visit 15 minutes Rocael Goetz PA-C Work Phone: [facility] Comment on above: Lumbar spondylosis ( Primary Dx); Disorder of sacrum Start: 03-10-2025 End: 03-10-2025 [facility] Start: 03-03-2025 End: 03-03-2025 ambulatory FRANK BAPTISTE [facility] Start: 03-03-2025 End: 03-03-2025 Office outpatient visit 15 minutes Frank Baptiste PA-C Work Phone: [facility] [place] Comment on above: Intention tremor (Pr imary Dx) Start: 02-23-2025 End: 02-23-2025 Refill Candace Carmichael RN [facility] Start: 02-22-2025 End: 02-22-2025 ambulatory CALVIN SOCORRO Not Available Start: 02-22-2025 End: 02-22-2025 Bamboo flowsheet Calvin Socorro DO Work Phone: [facility] Start: 02-22-2025 End: 02-25-2025 Bamboo flowsheet Calvin Socorro DO Work Phone: [facility] Start: 02-22-2025 End: 02-25-2025 Clinisync Result Encounter Calvin Socorro DO Work Phone: [facility] External Department Unsolicited Start: 02-22-2025 End: 02-22-2025 Patient encounter procedure Calvin Socorro DO Work Phone: [facility] Comment on above: Well woman exam with routine gynecological exam; Breast cancer screening by mammogram; Hot flashes due to menopause Start: 01-04-2025 End: 01-04-2025 Office outpatient visit 15 minutes Bo Chery MD Work Phone: [facility] Comment on above: Kidney stone (Primar y Dx); Urge incontinence of urine; Mineral metabolism disorder Start: 01-04-2025 End: 01-04-2025 [facility] Start: 12-30-2024 End: 12-30-2024 ambulatory [facility] Start: 12-25-2024 ambulatory [facility] Start: 12-22-2024 End: 12-22-2024 ambulatory BO CHERY [facility] Start: 12-16-2024 End: 12-16-2024 ambulatory [facility] Start: 12-09-2024 End: 12-09-2024 Office outpatient visit 25 minutes oRcael Goetz PA-C Work Phone: [facility] Comment on above: Lumbar spondylosis ( Primary Dx); Disorder of sacrum Start: 12-09-2024 End: 12-09-2024 ambulatory ROCAEL N [facility] Start: 12-04-2024 End: 12-08-2024 Telephone encounter Kaya Goins [facility] Comment on above: 02/10/25 FRANK DIAZ RESCHEDULE Start: 11-25-2024 End: 11-25-2024 ambulatory [facility] Start: 11-20-2024 End: 11-20-2024 ambulatory [facility] Start: 11-04-2024 End: 11-04-2024 Office outpatient visit 25 minutes Rocael Goetz PA-C Work Phone: [facility] Comment on above: Lumbar spondylosis ( Primary Dx); Disorder of sacrum Start: 11-04-2024 End: 11-04-2024 ambulatory ROCAELMatti WEEMSMIKAEL [facility] Start: 10-16-2024 End: 10-16-2024 ambulatory MARCUS [facility] Start: 09-28-2024 End: 09-28-2024 Clinisync Result Encounter Calvin Socorro DO Work Phone: [facility] External [facility] Unsolicited Start: 09-28-2024 End: 09-28-2024 Clinisync Result Encounter Calvin Socorro DO Work Phone: [facility] External [facility] Unsolicited Start: 09-21-2024 End: 09-21-2024 Evaluation and management of inpatient JOHANNEMatti ROYAL [facility] Start: 09-21-2024 End: 09-21-2024 Evaluation and management of inpatient BO CHERY [facility] Start: 09-16-2024 End: 09-16-2024 ambulatory ROCAEL N [facility] Start: 09-08-2024 End: 09-08-2024 ambulatory BO SchumacherMohsen CHERY [facility] Start: 09-08-2024 End: 09-08-2024 ambulatory [facility] Start: 09-04-2024 End: 09-04-2024 ambulatory [facility] Start: 09-01-2024 End: 09-01-2024 Bamboo flowsheet Calvin Socorro DO Work Phone: [facility] Start: 09-01-2024 End: 09-01-2024 Bamboo flowsheet Calvin Socorro DO Work Phone: [facility] Start: 09-01-2024 End: 09-01-2024 Office outpatient visit 15 minutes Calvin Socorro DO Work Phone: [facility] Comment on above: Encounter to discuss test results; Osteoporosis, post-menopausal ([facility]/H[facility]) Start: 09-01-2024 End: 09-01-2024 ambulatory CALVIN SOCORRO Not Available Start: 08-28-2024 End: 08-28-2024 ambulatory [facility] Start: 08-21-2024 End: 08-21-2024 ambulatory [facility] Start: 08-12-2024 End: 08-12-2024 ambulatory [facility] Start: 08-12-2024 End: 08-12-2024 ambulatory FRANK Darian BAPTISTE [facility] Start: 08-12-2024 End: 08-12-2024 ambulatory [facility] Start: 08-07-2024 End: 08-07-2024 ambulatory [facility] Start: 07-31-2024 End: 07-31-2024 ambulatory [facility] Start: 07-31-2024 End: 07-31-2024 ambulatory GEORGE [facility] Start: 07-29-2024 End: 07-29-2024 ambulatory BO Schumacher [facility] Start: 07-27-2024 End: 07-27-2024 ambulatory PAUL AMANDA [facility] Start: 07-24-2024 End: 07-24-2024 ambulatory HONG CASTRO [facility] Start: 07-01-2024 End: 07-01-2024 ambulatory [facility] Start: 06-24-2024 End: 06-24-2024 ambulatory [facility] Start: 05-06-2024 End: 05-06-2024 ambulatory [facility] Start: 05-04-2024 End: 05-04-2024 ambulatory BO [facility] Start: 05-01-2024 End: 05-01-2024 ambulatory JENNIFER HO [facility] Start: 03-12-2023 End: 03-13-[address] JENNIFER HO Facility: Start: 02-12-2023 End: 02-12-2023 ambulatory CALVIN SOCORRO Facility: Start: 07-27-2022 End: 07-28-2022 ambulatory CALVIN SOCORRO Facility: Start: 09-27-2021 End: 09-28-2021 ambulatory JOVANNI YOU Facility:[facility] Start: 02-16-2018 End: 02-16-2018 Ambulatory None Provider Facility:[facility] Start: 02-14-2018 End: 02-14-2018 Ambulatory None Provider Facility:[facility] Start: 11-19-2017 End: 11-19-2017 Emergency department patient visit BO Darian GIMENEZ [facility] Start: 09-26-2017 End: 09-26-2017 Ambulatory YO HUSSEIN Facility:[facility] Procedures Date Procedure Procedure Detail Performing Clinician Start: 03-31-2025 [facility] CALCIUM Calvin Fazi o DO Work Phone: Start: 03-31-2025 [facility] CREATININE Calvin Fa zio DO Work Phone: Start: 03-03-2025 Adult depression scr eening assessment Frank Baptiste PA-C Work Phone: Start: 02-22-2025 Urnls dip stick/tabl et rgnt non-auto w/o micrscp Calvin Socorro DO Work Phone: Start: 02-22-2025 IGP,APTIMA HPV,AGE GDLN Calvin Socorro DO Work Phone: Start: 02-22-2025 Microscopic observat ion [Identifier] in Cervix by Cyto stain Rocael Goetz PA-C Work Phone: Start: 09-28-2024 [facility] CALCIUM Calvin Fazi o DO Work Phone: Start: 09-28-2024 [facility] CREATININE Calvin Fa zio DO Work Phone: Start: 07-30-2024 Mammography Calvin Fazi o DO Work Phone: Start: 05-04-2024 Follow-up visit Follow-up BO CHERY Start: 05-01-2024 Follow-up visit Follow-up JENNIFER HO Start: 02-17-2024 Microscopic observat ion [Identifier] in Cervix by Cyto stain Calvin Socorro DO Work Phone: Start: 02-17-2024 Cytp cerv/vag auto t hin layer prep mnl screen Calvin Socorro DO Work Phone: Start: 10-17-2023 Colonoscopy Calvin Fazi o DO Work Phone: Start: 11-19-2017 AIR CAST BO SHEARER SCOTT Start: 11-19-2017 CRUTCHES BO SHEARER SCOTT Start: 11-19-2017 Radex ankle complete minimum 3 views BO GIMENEZ Plan of Treatment Date Care Activity Detail Author Start: 10-17-2033 Screening for malign ant neoplasm of colon [facility] Start: 02-16-2029 Screening for malign ant neoplasm of cervix [facility] Start: 02-23-2028 Screening for malign ant neoplasm of cervix Pap Smear [facility] Start: 02-16-2027 Screening for malign ant neoplasm of cervix Pap Smear [facility] Start: 06-09-2026 Adult BMI Screening Adult BMI Screen ing [facility] Start: 06-09-2026 Tobacco Screening Tobacco Screening [facility] Start: 04-16-2026 Adult BMI Screening Adult BMI Screen ing [facility] Start: 04-15-2026 End: 04-15-2026 Patient encounter procedure 04/15/2026 2:00 PM EDT Office Visit [facility] [address] [place] [address] Jennifer Ho MD [address], [address] [address] [facility] Start: 03-10-2026 Adult BMI Screening Adult BMI Screen ing [facility] Start: 03-10-2026 Tobacco Screening Tobacco Screening [facility] Start: 03-03-2026 Adult BMI Screening Adult BMI Screen ing [facility] Start: 03-03-2026 Depression Screening Depression Scre ening [facility] Start: 03-01-2026 End: 03-01-2026 Patient encounter procedure 03/01/2026 2:00 PM EDT Office Visit [facility] [address] [place] [address] Calvin Quintanilla DO [address] [place] [address] [facility] Start: 01-12-2026 End: 01-12-2026 Patient encounter procedure 01/12/2026 2:15 PM EDT Office Visit [facility] [address] [place] [address] [place] [address] Bo Chery MD [address] [place] [phone] [facility] Start: 01-04-2026 Adult BMI Screening Adult BMI Screen ing [facility] Start: 01-04-2026 Tobacco Screening Tobacco Screening [facility] Start: 01-04-2026 End: 01-04-2027 XR Abdomen AP X-ray abdomen ap 1 view Imaging Routine Kidney stone Expected: 01/04/2026 (Approximate), Expires: 01/04/2027 [employer] Work Phone: Comment on above: Expected: 01/04/2026 (Approximate), Expires: 01/04/2027 Start: 12-09-2025 Tobacco Screening Tobacco Screening [facility] Start: 11-20-2025 Tobacco Screening Tobacco Screening [facility] Start: 11-04-2025 Adult BMI Screening Adult BMI Screen ing [facility] Start: 10-16-2025 Tobacco Screening Tobacco Screening [facility] Start: 08-18-2025 End: 08-18-2025 Patient encounter procedure 08/18/2025 1:00 PM EDT Office Visit [facility] [address] [place] [address] Rocael Goetz, PAAlessiaC [address] [place] [address] [facility] Start: 07-30-2025 Screening for malign ant neoplasm of breast Mammogram [facility] Start: 07-16-2025 End: 07-16-2025 Admission to same day surgery center 07/16/2025 9:30 AM EDT - 07/16/2025 9:41 AM EDT Surgery [facility] [address] [facility] [place] [address] Hong Castro MD [address] [place] [address] RADIOFREQUENCY ABLATION SPINAL Left L 4/5, 5/ [04298 (CPT )] [facility] Comment on above: RADIOFREQUENCY ABLAT ION SPINAL Left L 4/5, 5/1 [38750 (CPT )] Start: 07-16-2025 End: 07-16-2025 Dstr nrolytc agnt parverteb fct sngl lmbr/sacral RADIOFREQUENCY ABLATION SPINAL Lumbar spondylosis 07/16/2025 9:30 AM EDT [facility] Start: 07-16-2025 Subsequent hospital visit by physician 07/16/2025 9:30 AM EDT Hospital Encounter [facility] [address] [place] [address] Hong Castro MD [address] [place], [place] [phone] [facility] Start: 07-02-2025 End: 07-02-2025 Admission to same day surgery center [facility] Comment on above: RADIOFREQUENCY ABLAT ION SPINAL right L 4/5,5/1 [08886 (CPT )] RADIOFREQUENCY ABLAT ION SPINAL right L 4/5, 5/1 [93439 (CPT )] Start: 07-02-2025 End: 07-02-2025 Dstr nrolytc agnt parverteb fct sngl lmbr/sacral [facility] Start: 07-02-2025 Subsequent hospital visit by physician [facility] Start: 06-28-2025 Influenza vaccination [facility] Start: 06-09-2025 End: 06-09-2025 Patient encounter procedure 06/09/2025 1:00 PM EDT Office Visit [facility] [address] [place] [phone] Rocael Goetz, JITENDRA [address] [place], [place] [phone] [facility] Start: 04-16-2025 End: 04-16-[address] [facility] Start: 03-10-2025 End: 03-10-2025 Patient encounter procedure 03/10/2025 12:45 PM EDT Office Visit [facility] [address] [place] [phone] Rocael Goetz PA-C [address] [place] [address] [facility] Start: 03-03-2025 End: 03-03-2025 Patient encounter procedure 03/03/2025 2:00 PM EDT Office Visit [facility] [place] [address] [place] [phone] Frank Baptiste PA-C [address], [address] [place] [address] [facility] [place] Start: 02-22-2025 End: 04-24-2026 MG Breast - bilateral Screening Bilateral screening mammogram Imaging Routine Breast cancer screening by mammogram Expected: 02/22/2025, Expires: 04/24/2026 [facility] Work Phone: Comment on above: Expected: 02/22/2025 , Expires: 04/24/2026 Start: 02-22-2025 End: 02-22-2025 Patient encounter procedure 02/22/2025 2:00 PM EDT Office Visit [facility] [address] [facility] [place] [address] Calvin Quintanilla DO [address] [place] [address] [facility] Start: 02-10-2025 End: 02-10-2025 Patient encounter procedure 02/10/2025 1:30 PM EDT Office Visit [facility] [address] [place] [address] Frank Baptiste PA-C [address] [place] [phone] [facility] Start: 01-04-2025 End: 01-04-2025 Patient encounter procedure 01/04/2025 2:15 PM EDT Office Visit [facility] [address] [place] [address] [place] [phone] Bo Chery MD [facility] [place] [address] [facility] Start: 12-09-2024 End: 12-09-2024 Patient encounter procedure 12/09/2024 12:30 PM EST Office Visit [facility] [address] [place] [phone] Rocael Goetz, PA-C [address] [facility], 2[address] [place], [place] [phone] [facility] Start: 11-20-2024 End: 11-20-2024 Admission to same day surgery center 11/20/2024 10:52 AM EST - 11/20/2024 10:57 AM EST Surgery [facility] [address] [place] [phone] Hong aCstro MD [address] [place], [place] [id number] INJECTION BLOCK SACROILIAC JOINT Bilateral SI Joint [facility] Comment on above: INJECTION BLOCK SACR OILIAC JOINT Bilateral SI Joint Start: 11-20-2024 End: 11-20-2024 INJECTION BLOCK SACROILIAC JOINT INJECTION BLOCK SACROILIAC JOINT Disorder of sacrum 11/20/2024 10:52 AM EST [facility] Start: 11-20-2024 Subsequent hospital visit by physician 11/20/2024 10:52 AM EST Hospital Encounter [facility] [address] [place] [phone] Hong Castro MD [address] [place], [place] [phone] [facility] Start: 06-28-2024 COVID-19 Vaccine ( season) COVID-19 Vaccine ( season) [facility] Start: 06-28-2024 Influenza vaccination [facility] Start: 12-01-2022 DTaP,Tdap and Td Vaccines (2 - Td or Tdap) DTaP,Tdap and Td Vaccines (2 - Td or Tdap) [facility] Start: 2020 Administration of varicella zoster vaccine Zoster (Shingles) Vaccine (1 of 2) [facility] Start: 1988 Adult BMI Follow Up Plan Adult BMI F ollow Up Plan [facility] Start: 1982 Depression Screening Depression Scre [facility] Start: 1970 Screening for malign ant neoplasm of colon [facility] THIN PREP TIS PAP AN D HR HPV DNA THIN PREP TIS PAP AND HR HPV DNA Pathology and Cytology Routine Well woman exam with routine gynecological exam Ordered: 02/22/2025 [facility] Comment on above: Ordered: 02/22/2025 Immunizations Immunization Date Immunization Notes Care Provider Ian nettles 07-19-2024 Pneumococcal Conjuga te 20-valent Rocael Goetz PA-C Work Phone: [facility] 08-12-2023 influenza virus vaccine, unspecified formulation Calvin Quintanilla DO Work Phone: [facility] Payers Date Payer Category Payer Medicare (Managed Care) JEFFREY [place] Member Subscriber Plan / Payer (Effective 2024-Present) Name: Nikole Banerjee Relation to Subscriber: Self Name: Nikole Banerjee Payer ID: Not on file Group ID: [id number] Type: Not on file Address: [address] [place] [id number] [id number] 2024 Medicare [facility] [id number] 2024 Medicare [id number] 2023 Medicare [id number] 2023 Medicaid [id number]. [id number] 2020 Worker's Compensation [id number] 2017 Unknown [id number] 1970 Unknown [id number] 2.16.840.1.392469.3.579.2. 647 1970 Unknown [id number] 2.16.840.1.419562.3.579.2. 593 1970 Unknown [id number] 2.16.840.1.112113.3.579.2. 593 1970 Unknown [id number] 2.16.840.1.878705.3.579.2. 593 1970 Unknown [id number] 2.16.840.1.154712.3.579.2. 1286 1970 Unknown [id number] 2.16.840.1.574982.3.579.2. 1286 1970 Unknown [id number] 2.16.840.1.786931.3.579.2. 1286 1970 Unknown [id number] 2.16.840.1.121836.3.579.2. 6 1970 Unknown [id number] 2.16.840.1.364040.3.579.2. 1285 1970 Unknown [id number] 2.16.840.1.821324.3.579.2. 1285 1970 Unknown [id number] 2.16.840.1.345977.3.579.2. 128 1970 Unknown [id number] 2.16.840.1.887846.3.579.2. 1285 1970 Unknown [id number] 2.16.840.1.211077.3.579.2. 1285 1970 Unknown [id number] 2.16.840.1.765762.3.579.2. 1285 1970 Unknown [id number] 2.16.840.1.999037.3.579.2. 128 1970 Unknown [id number] 2.16.840.1.979306.3.579.2. 1285 1970 Unknown [id number] 2.16.840.1.842894.3.579.2. 1285 1970 Unknown [id number] 2.16.840.1.062792.3.579.2. 1285 1970 Unknown [id number] 2.16.840.1.237765.3.579.2. 1286 1970 Unknown [id number] 2.16.840.1.258366.3.579.2. 1285 1970 Unknown [id number] 2.16.840.1.399576.3.579.2. 1259 1970 Unknown [id number] 2.16.840.1.993273.3.579.2. 1259 1970 Unknown [id number] 2.16.840.1.550295.3.579.2. 1259 1970 Unknown [id number] 2.16.840.1.132993.3.579.2. 1286 1970 Unknown [id number] 2.16.840.1.132378.3.579.2. 1286 1970 Unknown [id number] 2.16.840.1.415342.3.579.2. 128 1970 Unknown [id number] 2.16.840.1.640551.3.579.2. 128 1970 Unknown [id number] 2.16.840.1.753999.3.579.2. 128 1970 Unknown [id number] 2.16.840.1.692191.3.579.2. 1285 1970 Unknown [id number] 2.16.840.1.016065.3.579.2. 1285 1970 Unknown [id number] 2.16.840.1.701908.3.579.2. 1285 1970 Unknown [id number] 2.16.840.1.398996.3.579.2. 1285 1970 Unknown [id number] 2.16.840.1.612245.3.579.2. 1285 1970 Unknown [id number] 2.16.840.1.835425.3.579.2. 1285 1970 Unknown [id number] 2.16.840.1.050308.3.579.2. 1285 1970 Unknown [id number] 2.16.840.1.154441.3.579.2. 1285 1970 Unknown [id number] 2.16.840.1.202806.3.579.2. 1285 1970 Unknown [id number] 2.16.840.1.185789.3.579.2. 1285 1970 Unknown [id number] 2.16.840.1.365684.3.579.2. 1285 1970 Unknown [id number] 2.16.840.1.914530.3.579.2. 1285 1970 Unknown [id number] 2.16.840.1.800990.3.579.2. 1285 1970 Unknown [id number] 2.16.840.1.506065.3.579.2. 1285 1970 Unknown [id number] 2.16.840.1.889038.3.579.2. 1285 1970 Unknown [id number] 2.16.840.1.678090.3.579.2. 1285 1970 Unknown [id number] 2.16.840.1.154156.3.579.2. 1285 1970 Unknown [id number] 2.16840.1.269257.3.579.2. 1285 1970 Unknown [id number] 2.16.840.1.861455.3.579.2. 1285 1970 Unknown [id number] 2.16.840.1.921574.3.579.2. 1285 1970 Unknown [id number] 2.16840.1.404579.3.579.2. 1285 1970 Unknown [id number] 2.16840.1.154329.3.579.2. 6 1959 Medicaid [id number] Social History Date Type Detail Facility Tobacco smoking stat [facility] Tobacco smoking consumption unknown [facility] Start: 1970 Sex assigned at Not on file [facility] Start: 11-10-2020 End: 07-08-2024 Gender identity Not on file [facility] Start: 06-03-2024 End: 03-10-2025 Tobacco smoking status [facility] Ex-smoker [facility] Start: 10-28-1987 History of tobacco use Current smoker [facility] Start: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 Resolved Ambulatory Problems Past Medical History: Diagnosis Date Heart murmur Neuropathy Osteopenia HISTORY PAST MEDICAL HISTORY SOCIAL HISTORY Past Medical History: Diagnosis Date Heart murmur born with it Neuropathy Osteopenia Social History Tobacco Use Smoking status: Not on file Smokeless tobacco: Not on file Substance Use Topics Alcohol use: Not on file Drug use: Not on file FAMILY HISTORY Family History Problem Relation Name Age of Onset Breast cancer Other SURGICAL HISTORY Past Surgical History: Procedure Laterality Date CT ANGIOGRAM HEART CORONARY 07/07/2024 CT ANGIOGRAM TAVR 07/07/2024 REVIEW OF SYSTEMS Review of Systems: Review of Systems Constitutional: Negative. HENT: Negative. Eyes: Negative. Respiratory: Negative. Cardiovascular: Negative. Gastrointestinal: Negative. Genitourinary: Negative. Musculoskeletal: Negative. Skin: Negative. Neurological: Negative. All other systems reviewed and are negative. Hematological: Negative. Endocrine: Negative. Allergic/Immunologic: Negative. OBJECTIVE Objective: Physical Exam Constitutional: Appearance: Normal appearance. She is well-developed. Genitourinary: Vulva normal. Breasts: Breasts are soft. Right: Normal. Left: Normal. Cardiovascular: Rate and Rhythm: Normal rate and regular rhythm. Pulmonary: Effort: Pulmonary effort is normal. Breath sounds: Normal breath sounds. Abdominal: General: Bowel sounds are normal. There is no distension. Palpations: Abdomen is soft. Tenderness: There is no abdominal tenderness. There is no guarding or rebound. Musculoskeletal: General: No swelling. Normal range of motion. Right lower leg: No edema. Left lower leg: No edema. Neurological: Mental Status: She is alert and oriented to person, place, and time. Skin: General: Skin is warm and dry. Psychiatric: Mood and Affect: Mood normal. Behavior: Behavior normal. Vitals and nursing note reviewed. Exam conducted with a cage unloader present. Vitals: Estimated body mass index is 50.79 kg/m as calculated from the following: Height as of 02/12/: 5' 1 . Weight as of this encounter: 268 lb 12.8 oz. BP: 130/78 No LMP recorded. Patient is postmenopausal. ASSESSMENT & PLAN ICD-10-CM 1. Well woman exam with routine gynecological exam Z01.419 THIN PREP TIS PAP AND HR HPV DNA POCT urinalysis dipstick manually resulted 2. Breast cancer screening by mammogram Z12.31 Bilateral screening mammogram Bilateral screening mammogram Annual: Patient presents today for an annual exam. Patient states she is doing well and has no complaints. Pap was obtained without difficulty and patient given mammogram order to have scheduled/obtained. Patient is to have DEXA Scan done in 2025. Celexa sent to patients pharmacy to help with hot flashes. Orders Placed This Encounter Procedures Bilateral screening mammogram POCT urinalysis dipstick manually resulted Follow Up: Patient is to return in one year for annual unless needed otherwise. Documented by Khushi Esposito LPN on behalf of: Calvin Quintanilla DO documented in this encounter [facility] 01-04-2025 Evaluation + Plan note Associated Problem(s): Kidney stone KUB 1 year [facility] 01-04-2025 Miscellaneous Notes Associated Problem(s): Kidney stone KUB 1 year documented in this encounter [facility] 01-04-2025 History of Presen t illness Narrative Images from the original note were not included. [address] [place] [address] [facility] [address] Patient: Nikole Banerjee Date of : 1970 Encounter Date: 01/04/2025 History of Present Illness: The patient is a 54 y.o. female, an established patient, and is here for Chief Complaint Patient presents with Follow-up . History stones. ESWL. Doing well. Tolerated procedure. She is asymptomatic. KUB does not demonstrate any stones. Other issues as detailed below. Urinalysis today: No results for input(s): EXTPOCURCO , EXTPOCURCH , EXTPOCAPP , EXTPOCURBS , EXTPOCURBIL , EXTPOCUKET , EXTPOCUSPG , EXTPOCUHGB , EXTPOCUPRO , EXTPOCUURO , EXTPOCULEU , EXTPOCUNIT , EXTPOCUWBC , EXTPOCUBLD , EXTPOCURBC , EXTPOCUCRY , EXTPOCUBAC , EXTPOCUTREP , EXTPOCUPH , EXTPOCULEE in the last 72 hours. Last BUN and creatinine: Lab Results Component Value Date BUN 15 08/12/2024 Lab Results Component Value Date CREATININE 0.58 08/12/2024 Last PSA: No results found for: PSA No results found for: PROSTATICSP Past Medical, Family, and Social History Update: The following portions of the patient's history were reviewed and updated as appropriate: allergies, current medications, past family history, past medical history, past social history, past surgical history and problem list. Past Medical History: Diagnosis Date Asthma Bilateral flank pain Bladder spasm Bleeding from varicose vein Breast lesion marker right breast Bronchitis Cellulitis 07/07/2024 Pt. was admitted into the hospital for cellulitis of the right lower extremity. Chronic pain disorder COPD (chronic obstructive pulmonary disease) ([facility]) Depression Disc disease, degenerative, lumbar or lumbosacral DVT (deep venous thrombosis) ([facility]) 1995 right leg Edema GERD (gastroesophageal reflux disease) Heart murmur Hematuria Kidney stones Low back pain Neuropathy Obesity Oliguria Osteoporosis Pneumonia PONV (postoperative nausea and vomiting) Proteinuria Varicose veins of calf Visual impairment glasses Past Surgical History: Procedure Laterality Date BREAST BIOPSY right side marker present- pt doesn't know when CARPAL TUNNEL RELEASE Right pt unsure of when CHOLECYSTECTOMY 2012? COLONOSCOPY DIAGNOSTIC / SCREENING N/A 10/17/2023 Performed by Bo Slaughter DO at [facility] CYST REMOVAL Left arm- pt unsure of when CYSTOSCOPY N/A 06/24/2023 Performed by Bo Chery MD at [facility] CYSTOSCOPY REMOVAL STENT Left 10/09/2021 Performed by Bo Chery MD at [facility] CYSTOSCOPY RETROGRADE PYELOGRAM Bilateral 06/24/2023 Performed by Bo Chery MD at [facility] CYSTOSCOPY RETROGRADE PYELOGRAM Bilateral 09/18/2021 Performed by Bo Chery MD at [facility] ENDOSCOPIC RELEASE CARPAL TUNNEL Left 12/14/2020 Performed by Aung Miller MD at [facility] ABLATION VEIN Right 06/14/2023 Performed by Jennifer Ho MD at [facility] EXTRACORPOREAL SHOCK WAVE LITHOTRIPSY EXTRACORPOREAL SHOCK WAVE LITHOTRIPSY Left 09/21/2024 Performed by Bo Chery MD at [facility] EXTRACORPOREAL SHOCK WAVE LITHOTRIPSY Left 02/06/2021 Performed by Bo Chery MD at [facility] EXTRACORPOREAL SHOCK WAVE LITHOTRIPSY Left 11/16/2020 Performed by Bo Chery MD at [facility] EXTRACORPOREAL SHOCK WAVE LITHOTRIPSY Left 03/12/2018 Performed by Bo Chery MD at [facility] EXTRACORPOREAL SHOCK WAVE LITHOTRIPSY Left 12/18/2017 Performed by Bo Chery MD at [facility] EXTRACORPOREAL SHOCK WAVE LITHOTRIPSY / SIDE WILL BE CHOOSEN DAY OF PROCEDURE Right 06/17/2024 Performed by Bo Chery MD at [facility] INJECTION BLOCK NERVE MEDIAL BRANCH bilat L 4/5,5/ Bilateral 08/18/2021 Performed by Hong Castro MD at [facility] INJECTION BLOCK NERVE MEDIAL BRANCH bilat L 4/5,/ Bilateral 06/02/2021 Performed by Hong Castro MD at [facility] INJECTION BLOCK SACROILIAC JOINT Bilateral 11/20/2024 Performed by Hong Castro MD at [facility] INJECTION BLOCK SACROILIAC JOINT Bilateral 09/27/2023 Performed by Hong Castro MD at [facility] INJECTION BLOCK SACROILIAC JOINT Bilateral 05/03/2023 Performed by Hong Castro MD at [facility] LASER HOLMIUM URETEROSCOPY RENAL STONES < OR=1CM Left 09/18/2021 Performed by Bo Chery MD at [facility] PHLEBECTOMY Right 06/14/2023 Performed by Jennifer Ho MD at [facility] PLANTAR'S WART EXCISION Left foot RADIOFREQUENCY ABLATION SPINAL Left L 4/5, 5/1 Left 03/27/2024 Performed by Hogn Castro MD at [facility] RADIOFREQUENCY ABLATION SPINAL Right L 4/5, 5/ Right 03/06/2024 Performed by Hong Castro MD at [facility] RADIOFREQUENCY ABLATION SPINAL Left L 4/5,5/1 Left 02/15/2023 Performed by Hong Castro MD at [facility] RADIOFREQUENCY ABLATION SPINAL Left L 4/5,5/1 Left 11/10/2021 Performed by Hong Castro MD at [facility] RADIOFREQUENCY ABLATION SPINAL Right L 4/5,5/1 Right 06/08/2022 Performed by Hong Castro MD at [facility] Family History Problem Relation Age of Onset Emphysema Mother Emphysema Father Lung cancer Father Breast cancer Cousin Current Outpatient Medications Medication Sig Dispense Refill [...] Indications: prevention of vitamin D deficiency. 3 denosumab (PROLIA) 60 mg/mL syringe injection Inject 1 mL (60 mg total) under the skin once. DULoxetine (CYMBALTA) 60 mg capsule Take 1 capsule (60 mg total) by mouth in the morning. Indications: neuropathic pain. 30 capsule 3 fluticasone propionate (FLONASE ALLERGY RELIEF) 50 mcg/actuation nasal spray Administer 1 spray into each nostril in the morning. loratadine (CLARITIN) 10 mg tablet Take 1 tablet (10 mg total) by mouth nightly Indications: inflammation of the nose due to an allergy. metFORMIN XR (GLUCOPHAGE XR) 500 mg 24 hr tablet Take 1 tablet (500 mg total) by mouth daily with breakfast. 30 tablet 11 mometasone-formoterol (DULERA) 100-5 mcg/actuation inhaler Inhale 2 puffs in the morning and 2 puffs before bedtime. Indications: controller medication for asthma. montelukast (SINGULAIR) 10 mg tablet Take 1 tablet (10 mg total) by mouth nightly Indications: controller medication for asthma. omega 6-yqw-qrh-fish oil (Fish OiL) 300-1,000 mg capsule Take by mouth. omeprazole (PriLOSEC) 40 mg capsule Take 1 [...] morning. Indications: treatment to prevent vitamin deficiency. lidocaine (LIDODERM) 5 % Place 1 patch on the skin daily. Remove & Discard patch within 12 hours or as directed by MD (Patient not taking: Reported on 12/09/2024) 30 patch 0 No current facility-administered medications for this visit. (All medications reviewed and updated by provider since last office visit or hospitalization) Allergies: Gabapentin, Capsaicin, Gentamicin, and Latex Tobacco History: Social History Tobacco Use Smoking Status Former Current packs/day: 1.00 Average packs/day: 1 pack/day for 36.0 years (36.0 ttl pk-yrs) Types: Cigarettes Passive exposure: Past Smokeless Tobacco Never (If patient a smoker, smoking cessation counseling offered) Social History: Social History Substance and Sexual Activity Alcohol Use No Review of Systems: General: Negative for chills and fever. Cardiovascular: Negative for chest pain and shortness of breath. Gastrointestinal: Negative for constipation, diarrhea, nausea, and vomitting. -per HPI Physical Exam: BP 134/77 Pulse 90 Ht 154.9 cm (5' 1 ) Wt 116.1 kg (256 lb) BMI 48.37 kg/m General Alert., Cooperative. Not in acute distress. Non-toxic. Orientation - Oriented X3. Head and Neck Normocephalic, atraumatic with no lesions. No abnormal movements. Trachea - midline. Integumentary Normal coloration of skin. Skin Moisture - normal skin moisture. Chest and Lung Exam Quiet, even and easy respiratory effort with no use of accessory muscles. Neurologic NON-focal Assessment and Plan: Nikole was seen today for follow-up. 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 Excellent ==== 04/22/2023 ==== still doing well tolerates medication. Decision made refill today. ==== 03/05/2022 ==== had urge incontinence after the ureteroscopy. Was placed on oxybutynin. Has done well. Urinalysis today negative for infection. She wishes to have refill. Plan: Will refill. She can take in a month or 2 and would like her to stop to see how she does Mineral metabolism disorder Overview ==== 01/04/2025 ==== reiterated the need to drink more fluids ==== 07/31/2023 ==== given the stones again encouraged fluid intake enough to make 2 to 2.5 L of urine a day ==== 09/07/2020 ==== she does drink plenty of fluid. I do want her to continue to do so to reduce risk of stone formation +++++++++ 01/30/2017 ALLSCRIPTS SUMMARY +++++++++++ Workup 2012 demonstrated low urinary volume. Citrate was reasonable. super saturation values were elevated. The plan was to increase hydration. Kidney stone - Primary Overview ==== 01/04/2025 ==== #### status post left ESWL. Follow up KUB negative for stones. Excellent finding. She is asymptomatic ==== 07/29/2024 ==== ##### s/p Right ESWL--successful treatment ==== 05/04/2024 ==== most recent KUB suggest enlarging stone. On the right in particular seems to be about a cm so wears previously with smaller. We did review going back to 2020 as well and there is a difference in the stone size bilaterally. ==== 07/31/2023 ==== CT urogram performed May 2023 demonstrates bilateral lower pole calculi less than or equal to 5 mm calcified in nature. Hounsfield units on the right side 697 on the left side 546 ==== 03/05/2022 ==== get a KUB in 1 year year ====11/22/21====####left ureteroscopy 09/18/21. Follow-up ultrasound negative for hydronephrosis. Question of a small stone in the left kidney. She has had some issues with incontinence and blood with wiping since stent was removed. Will send urine for fish/cytology and culture. If any flank pain, we could consider repeating CT ==== 07/24/2021 ==== she has passed fragments since last visit in by her account no reasonable amount of great and Saint like material. However KUB does look very stable regarding stone burden. ==== 03/20/2021 ==== KUB evaluated today looks like she had the the response to the ESWL. I did review her CT scan as well which did not show any obstruction or perinephric hematoma. She had a recent urine culture just at the end of January that was negative. She does have bilateral back discomfort that is bothersome to the patient this is non urologic. ====02/20/21==== s/p repeat left ESWL 02/06/21--persistent stone burden left side based on CT in ER 02/12/21 for pain/dysuria/frequency--dx with multidrug resistant UTI--on Bactrim DS--still symptomatic despite few pills remaining--based on CT no obvious urologic cause for her pain--no ureteral stones or obstruction--will repeat urine culture for cure and call her with results--after c/s back will discuss case w/Dr. Chery. Briefly discussed potential for ureteroscopy/laser/stone extraction/stent to clear the left kidney. Offered referral to spine care for her back pain--pt accepted. Agreed to short course Agency refill ([facility] reviewed--not suspicious), [place]le refill and time off work due to ER visit/office visit. ==== 03/20/2021 ==== #### left ESWL October 2020. KUB today does demonstrate responsive stone but still has fragments large enough. Therefore we discussed repeat treatment. Patient willing to proceed. Does not wish to have ureteroscopy at this point with any stenting ==== 03/20/2021 ==== Established problem, worsening. Stone left larger in size. +++++++++ 03/20/2021 ALLSCRIPTS SUMMARY +++++++++++ History of ESWL x3 all in 2014 and . Has had reduction in stone burden. History of bilateral stones. Calcified. Urine pH 7.5. Most recent CT scan small stones bilaterally left greater than right. #### 2-2018 ESWL left side. Fragmentation the stone. Still persistent. Still abdominal area. We discussed repeat/staged procedure. She wished proceed so. ### staged left ESWL 02/2018. KUB looks stable but during treatment we had nice separation. Therefore will monitor. Repeat KUB 4-6 months. ==== 03/20/2021 ==== no interval colic. KUB difficult to ascertain given the overlying bowel gas if anything could be stable otherwise improved. Certainly no new stones noted. ==== 03/20/2021 ==== KUB demonstrates stable left stone. 4 mm. PLAN: We discussed ESWL versus observation versus intervention with URS. Patient most content with observation. KUB 1 yr Current Assessment & Plan KUB 1 year Relevant Orders X-ray abdomen ap 1 view Follow-up: KUB 1 year return clinic Bo Chery MD This note was created with the assistance of a speech recognition program. While intending to generate a timely document that accurately reflects the content of the visit, no guarantee can be provided that every grammatical or spelling mistake has been or will be identified or corrected. Thank you for your understanding. documented in this encounter [facility] 12-30-2024 Note Large joint: L knee on 12/30/2024 1:39 PM Indications: pain Details: 21 G needle, lateral approach Medications: 4 mL lidocaine (PF) 10 mg/mL (1 %); 25 mg sodium hyaluronate (Supartz FX) 10 mg/mL Outcome: tolerated well, no immediate complications Patient given #3 of 3 supartz injection to her left knee today, tolerated well. Follow up in 6 months, sooner if any issues or concerns. [facility] 12-25-2024 Note Large joint: L knee on 12/25/2024 10:19 AM Indications: pain Details: 21 G needle, lateral approach Medications: 25 mg sodium hyaluronate (Supartz FX) 10 mg/mL; 4 mL lidocaine HCl 10 mg/mL (1 %) Outcome: tolerated well, no immediate complications Given second of three supartz injections into her left knee today, tolerated well. Follow up next week for third round. [facility] 12-16-2024 Note Large joint: L knee on 12/16/2024 12:34 PM Indications: pain Details: 21 G needle, lateral approach Medications: 4 mL lidocaine (PF) 10 mg/mL (1 %); 25 mg sodium hyaluronate (Supartz FX) 10 mg/mL Outcome: tolerated well, no immediate complications Given #1 of 3 supartz injection today, tolerated well. Follow up next week for second round. [facility] 12-09-2024 History of Presen t illness Narrative [facility] [address] [place] [address] Patient: Nikole Banerjee Sex: female : 1970 Age: 54 y.o. PCP: SACHIN FOWLER 12/09/2024 Nikole Banerjee is here for a(n) post procedure follow up 11/20/2024 bilateral sacroiliac joint injection with 60% relief 60% pain relief x 2 hours. 30% relief continues. Patient states post procedure it has been less painful performing ADLs. Date of onset of pain: January 2021 , pain has lasted greater than 3 months. Pain scale before treatment: 6/10 Pre-op pain score: 6/10 Post-op pain score: 0/10 2 hour post-op pain score: 6/10 4 hour post-op pain score: 6/10 Percentage and duration of relief after treatment: see above Pain scale after treatment: 12/07 Chief Complaint Patient presents with Back Pain HPI: May 2024- present PT x3/week with 3 viists to go and continued HEP- No relief Noé L4/5,5/1 MBB w/90% relief. 06/02/21 Noé L4/5,5/1 MBB w/90% relief. 08/18/2021 Bilat L4/5 5/1 MBB with 100% relief. 11/10/21 Left L4/5, 5/1 RFA with at least 50-60% pain relief and significant improvement in physical functioning 06/08/22 Right L 4/5 5/1 RFA with at least 75% relief and significant improvement in physical functioning 02/15/23 Left L 4/5 5/1 RFA with 75-80% relief 05/03/23 Noé SI Inj w/90% relief for 2 days 11/08/2023 Bilat SI joint inj with 80% relief for the first day and 50% relief ongoing Right L4/5, 5/1 RFA 03/06/24 and Left L4/5, 5/1 RFA 03/27/24 with 60% relief. post procedure follow up 11/20/2024 bilateral sacroiliac joint injection with 60-80% pain relief Back Pain This is a chronic problem. The current episode started more than 1 year ago (January 2021). The problem occurs 2 to 4 times per day. The problem has been gradually improving (post SI injections) since onset. The pain is present in the sacro-iliac, lumbar spine and gluteal. The quality of the pain is described as aching. The pain does not radiate. The pain is at a severity of 4/10. The pain is moderate. The pain is Worse during the day. Exacerbated by: standing, walking, stairs, bending, lifting, lying, twisting, leaning. Associated symptoms include numbness (LLE intermittently), tingling (LLE- intemittently) and weakness (LLE). Pertinent negatives include no abdominal pain, bladder incontinence, bowel incontinence, chest pain, fever or leg pain. Risk factors include obesity, sedentary lifestyle and lack of exercise. She has tried heat (Tylenol, NSAIDs(Ibuprofen, Mobic) w/min relief, Flexeril w/no relief; Bossman w/adverse reaction, Agency w/mod relief. Cymbalta w/mod relief, Aquatic/PT Nov-2022 w/min relief) for the symptoms. The treatment provided moderate relief. The effect of pain on patient's ADLS: Moderate Impairment. Past Medical History: Diagnosis Date Asthma Bilateral flank pain Bladder spasm Bleeding from varicose vein Breast lesion marker right breast Bronchitis Cellulitis 07/07/2024 Pt. was admitted into the hospital for cellulitis of the right lower extremity. Chronic pain disorder COPD (chronic obstructive pulmonary disease) ([facility]) Depression Disc disease, degenerative, lumbar or lumbosacral DVT (deep venous thrombosis) ([facility]) 1995 right leg Edema GERD (gastroesophageal reflux disease) Heart murmur Hematuria Kidney stones Low back pain Neuropathy Obesity Oliguria Osteoporosis Pneumonia PONV (postoperative nausea and vomiting) Proteinuria Varicose veins of calf Visual impairment glasses Past Surgical History: Procedure Laterality Date BREAST BIOPSY right side marker present- pt doesn't know when CARPAL TUNNEL RELEASE Right pt unsure of when CHOLECYSTECTOMY 2012? COLONOSCOPY DIAGNOSTIC / SCREENING N/A 10/17/2023 Performed by Bo Slaughter DO at [facility] CYST REMOVAL Left arm- pt unsure of when CYSTOSCOPY N/A 06/24/2023 Performed by Bo Chery MD at [facility] CYSTOSCOPY REMOVAL STENT Left 10/09/2021 Performed by Bo Chery MD at [facility] CYSTOSCOPY RETROGRADE PYELOGRAM Bilateral 06/24/2023 Performed by Bo Chery MD at [facility] CYSTOSCOPY RETROGRADE PYELOGRAM Bilateral 09/18/2021 Performed by Bo Chery MD at [facility] ENDOSCOPIC RELEASE CARPAL TUNNEL Left 12/14/2020 Performed by Aung Miller MD at [facility] ABLATION VEIN Right 06/14/2023 Performed by Jennifer Ho MD at [facility] EXTRACORPOREAL SHOCK WAVE LITHOTRIPSY EXTRACORPOREAL SHOCK WAVE LITHOTRIPSY Left 09/21/2024 Performed by Bo Chery MD at [facility] EXTRACORPOREAL SHOCK WAVE LITHOTRIPSY Left 02/06/2021 Performed by Bo Chery MD at [facility] EXTRACORPOREAL SHOCK WAVE LITHOTRIPSY Left 11/16/2020 Performed by Bo Chery MD at [facility] EXTRACORPOREAL SHOCK WAVE LITHOTRIPSY Left 03/12/2018 Performed by Bo Chery MD at [facility] EXTRACORPOREAL SHOCK WAVE LITHOTRIPSY Left 12/18/2017 Performed by Bo Chery MD at [facility] EXTRACORPOREAL SHOCK WAVE LITHOTRIPSY / SIDE WILL BE CHOOSEN DAY OF PROCEDURE Right 06/17/2024 Performed by Bo Chery MD at [facility] INJECTION BLOCK NERVE MEDIAL BRANCH bilat L 4/5,02/25 Bilateral 08/18/2021 Performed by Hong Castro MD at [facility] INJECTION BLOCK NERVE MEDIAL BRANCH bilat L 4/5,02/25 Bilateral 06/02/2021 Performed by Hong Castro MD at [facility] INJECTION BLOCK SACROILIAC JOINT Bilateral 11/20/2024 Performed by Hong Castro MD at [facility] INJECTION BLOCK SACROILIAC JOINT Bilateral 09/27/2023 Performed by Hong Castro MD at [facility] INJECTION BLOCK SACROILIAC JOINT Bilateral 05/03/2023 Performed by Hong Castro MD at [facility] LASER HOLMIUM URETEROSCOPY RENAL STONES < OR=1CM Left 09/18/2021 Performed by Bo Chery MD at [facility] PHLEBECTOMY Right 06/14/2023 Performed by Jennifer Ho MD at [facility] PLANTAR'S WART EXCISION Left foot RADIOFREQUENCY ABLATION SPINAL Left L 4/5, 5/ Left 03/27/2024 Performed by Hong Castro MD at [facility] RADIOFREQUENCY ABLATION SPINAL Right L 4/5, 5/1 Right 03/06/2024 Performed by Hong Castro MD at [facility] RADIOFREQUENCY ABLATION SPINAL Left L 4/5,5/ Left 02/15/2023 Performed by Hong Castro MD at [facility] RADIOFREQUENCY ABLATION SPINAL Left L 4/5,5/1 Left 11/10/2021 Performed by Hong Castro MD at [facility] RADIOFREQUENCY ABLATION SPINAL Right L 4/5,5/ Right 06/08/2022 Performed by Hong Castro MD at [facility] Allergies Allergen Reactions Gabapentin Swelling Facial, legs, feet swelling Capsaicin Gentamicin Rash Latex Hives Family History Problem Relation Age of Onset Emphysema Mother Emphysema Father Lung cancer Father Breast cancer Cousin Social History Socioeconomic History Marital status: Spouse name: Not on file Number of children: Not on file Years of education: Not on file Highest education level: Not on file Occupational History Not on file Tobacco Use Smoking status: Former Current packs/day: 1.00 Average packs/day: 1 pack/day for 36.0 years (36.0 ttl pk-yrs) Types: Cigarettes Passive exposure: Past Smokeless tobacco: Never Vaping Use Vaping status: Every Day Substances: Nicotine, Flavoring Devices: Disposable Substance and Sexual Activity Alcohol use: No Drug use: No Sexual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 technically more difficult in the light of severe obesity. I will also consider the possibility of undiagnosed obstructive sleep apnea (which often accompanies obesity) when prescribing any narcotic medications. I will weigh the risks and benefits and fully discuss them with the patient for these reasons. Comorbidity- COPD The patient has a history of chronic obstructive pulmonary disease. Due to this reason, special consideration will need to be given to the prescription of narcotics in that they may depress respiratory function and lead to respiratory insufficiency or failure. Consideration will also be given to procedure safety in that sedation is used in the outpatient setting for any planned procedure. These records will be available to the anesthesiologist to tailor a safe anesthetic for the procedure. The patient will also be observed closely in the recovery area and may even require admission if they remain overly sedated for an extended period of time and cannot maintain an airway. These preparations will be made as necessary. OARRS: Reviewed. Scribe Statement: Rosalind Rob CNA, scribed for and in the presence of ROCAEL GOETZ PA-C who performed the above service. Provider Statement: ROCAEL Rob PA-C, personally performed the services described in the documentation, as scribed by Rosalind Peña CNA in my presence, and it is both accurate and complete. Rosalind Peña CNA 11/04/24 [id number] Rocael Goetz PA-C 11/04/24 [id number] documented in this encounter [facility] 11-04-2024 Instructions Rosalind Peña CNA - 11/04/2024 1:00 PM EST Facet Injection / Medial Branch Block (MBB) / Sacroiliac (SI) Joint Injection / Cluneal NB A facet injection and sacroiliac joint injection are injections of local anesthetic and steroid into a joint in the spine. A medial branch block is similar, but the medication is placed outside the joint space near the nerve that supplies the joint called the medial branch (steroid may or may not be used). You may require multiple injections depending upon how many joints are involved. How Long Will This Procedure Last? The extent and duration of pain relief may depend on the amount of inflammation and how many areas are involved. Other coexisting factors may be responsible for your pain. If your pain goes away for a short time, but then returns, you may be a candidate for radiofrequency ablation (RFA). Activity Be active. Attempt activities and movements that typically cause pain to see if it feels better while doing them. We will give you a pain diary. Please fill this out as directed by your nurse in pre-op. This will help your doctor determine the effectiveness of the injection, and how to proceed. Bring the pain diary with you to your follow-up appointment. Medications You should not take your pain medications for 4-6 hours before or after the injection in order to properly diagnose if the injection provides adequate relief. Resume your routine medications after your procedure. You may resume blood thinners per your regular schedule after the procedure. If you received sedation: If you received sedation for your procedure, you may feel sleepy or not yourself for several hours today. For the next 24 hours avoid activities that requires alertness or coordination. This includes: Driving or operating heavy machinery Using power tools Consuming alcohol Do not make important or complex decisions or sign legal documents in the next 24 hours. Other Instructions: If you feel severe pain at the injection site with swelling and redness, increased leg weakness, a fever of 101 or higher, headache (or worsening headache), changes in vision or urinary retention: Please call the office at , or have someone take you to the nearest emergency room. Tell the emergency room staff that you recently had a spine injection. A doctor must evaluate you for bleeding and injection complications. If you lose control over bowel, bladder, or legs: Go to the nearest emergency room. documented in this encounter [facility] 09-01-2024 History of Presen t illness Narrative Reason for Appointment: Patient ID: Nikole Banerjee is a 53 y.o. female who presents for Discuss Dexa results (Pt present today to discuss test results) Patient presents today for Acute Visit. and Follow up appointment to discuss results. MEDICATIONS Current Outpatient Medications Medication Instructions acetaminophen (TYLENOL 8 HOUR) 650 mg, Oral, Every 8 hours PRN albuterol HFA (Ventolin HFA) 90 mcg/act inhaler aspirin 325 MG tablet Every 24 hours Calcium Carb-Cholecalciferol 600-10 MG-MCG tablet 1 tablet, Oral, Daily calcium citrate 600 mg and vitamin D3 (Citrical & Minerals + Vit D) 600-200 MG-UNIT tablet Every 24 hours cefadroxil (Duricef) 500 MG capsule doxycycline (VIBRAMYCIN) 100 mg, Oral, 2 times daily DULoxetine (Cymbalta) [address] capsule 1 capsule, Oral, Daily fluticasone (Flonase) 50 MCG/ACT nasal spray Every 24 hours loratadine (Claritin) 10 MG tablet 1 tablet, Oral, Daily mometasone-formoterol (Dulera) 100-5 MCG/ACT inhaler montelukast (Singulair) 10 MG tablet 1 tablet, Oral, Nightly Multiple Vitamin (Multi Vitamin) tablet Every 24 hours omeprazole (PriLOSEC) [address] capsule 1 capsule, Oral, Daily ondansetron (Zofran) 4 MG tablet 1 tablet, Oral, 2 times daily ALLERGIES Allergies Allergen Reactions Gabapentin Anaphylaxis and Swelling Other Reaction(s): Unknown Facial, legs, feet swelling Other Other Reaction(s): Unknown Gentamicin Rash Latex Hives Other Reaction(s): Unknown PROBLEMS Active Ambulatory Problems Diagnosis Date Noted No Active Ambulatory Problems Resolved Ambulatory Problems Diagnosis Date Noted No Resolved Ambulatory Problems Past Medical History: Diagnosis Date Heart murmur Neuropathy Osteopenia HISTORY PAST MEDICAL HISTORY SOCIAL HISTORY Past Medical History: Diagnosis Date Heart murmur born with it Neuropathy Osteopenia Social History Tobacco Use Smoking status: Not on file Smokeless tobacco: Not on file Substance Use Topics Alcohol use: Not on file Drug use: Not on file FAMILY HISTORY Family History Problem Relation Name Age of Onset Breast cancer Other SURGICAL HISTORY Past Surgical History: Procedure Laterality Date CT ANGIOGRAM HEART CORONARY 07/07/2024 CT ANGIOGRAM TAVR 07/07/2024 REVIEW OF SYSTEMS Review of Systems: Review of Systems Constitutional: Negative. HENT: Negative. Eyes: Negative. Respiratory: Negative. Cardiovascular: Negative. Gastrointestinal: Negative. Genitourinary: Negative. Musculoskeletal: Negative. Skin: Negative. Neurological: Negative. All other systems reviewed and are negative. Hematological: Negative. Endocrine: Negative. Allergic/Immunologic: Negative. OBJECTIVE Objective: Physical Exam Constitutional: Appearance: Normal appearance. She is well-developed. Cardiovascular: Rate and Rhythm: Normal rate and regular rhythm. Pulmonary: Effort: Pulmonary effort is normal. Breath sounds: Normal breath sounds. Abdominal: General: Bowel sounds are normal. There is no distension. Palpations: Abdomen is soft. Tenderness: There is no abdominal tenderness. There is no guarding or rebound. Musculoskeletal: General: No swelling. Normal range of motion. Right lower leg: No edema. Left lower leg: No edema. Neurological: Mental Status: She is alert and oriented to person, place, and time. Skin: General: Skin is warm and dry. Psychiatric: Mood and Affect: Mood normal. Behavior: Behavior normal. Vitals and nursing note reviewed. Exam conducted with a cage unloader present. Vitals: Estimated body mass index is 48.94 kg/m as calculated from the following: Height as of 02/12/23: 5' 1 . Weight as of this encounter: 259 lb. BP: No LMP recorded (approximate). Patient is postmenopausal. ASSESSMENT & PLAN ICD-10-CM 1. Encounter to discuss test results Z71.2 2. Osteoporosis, post-menopausal ([facility]/HCC) M81.0 Pt presents to discuss dexa scan results. Pt is osteoporotic. Discussed all options with pt in detail. Pt is high fracture risk. Discussed possible causes. Pt to start prolia injections. Pt to be contacted for injection. Pt to return as needed. Documented by Ifeoma Castrejon LPN on behalf of: Calvin Quintanilla DO documented in this encounter [facility] 07-31-2024 Note Infectious Diseases - Clinic note - Please contact us via [employer] during business hours. If no response in 15 min, call / page through the fire engine operator Division of Infectious Diseases [employer] for communication via [employer] during business hours (8 AM - 5 PM). If I do not respond within 30 minutes, please call the answering service. Patient name: Nikole Banerjee Patient Today's Date and Time: 07/31/2024, 11:43 AM PCP: Dr. Angelica Flores Discharged from [place] on 07/19/24 Residing: Home Impression/Recommendations : RLE cellulitis Myositis Open wound RLE edema First occurrence of cellulitis CT RLE: without evidence of gas gangrene or necrotizing infection MRI RLE: There is diffuse induration of the skin and subcutaneous tissues which may be seen with cellulitis in the appropriate setting, perhaps superimposed on chronic venous stasis. No discrete soft tissue abscess, diffuse gas artifact or deep intramuscular or fascial plane collection Continue to elevate limbs and use compression. Tight glycemic is control important for preventing infections Completed Keflex and Bactrim Obesity Tobacco smoker Labs: 07/27/24 WBC: 9.6 Cr.: 0.65 (Labs WNL ) The patient reports doing okay. Continues to complain of right lower extremity pain which prevents her from wearing compression. She does have some erythema but this could be related to some underlying peripheral vascular disease. Nontender, no warmth or drainage. I educated the importance of hygiene as well as compression to help with edema. Edema is likely the main cpr ambulance driver of pain at this time. No plans to extend antibiotics at this time. Continue to monitor for signs and symptoms of infection. Follow Up: As needed Subjective Nikole Banerjee is a 53 y.o.-year-old female who was initially admitted on 07/07/24. This is a patient with a past medical history significant for COPD, DVT in the right leg, morbid obesity and chronic leg swelling. This patient presented to the emergency department after experiencing right lower extremity redness, swelling and fever. She attempted Tylenol without much relief. She also has chronic open wounds distal to her tibia. On presentation she had leukocytosis and was started on IV vancomycin and ceftriaxone. A MRI of the right lower extremity showed, There is diffuse induration of the skin and subcutaneous tissues which may be seen with cellulitis in the appropriate setting, perhaps superimposed on chronic venous stasis. No discrete soft tissue abscess, diffuse gas artifact or deep intramuscular or fascial plane collection . She was educated on the importance of compression and elevation. She was then discharged on p.o. Bactrim and Keflex. Today, she is completing a hospital follow-up. She is present with her . She reports 6 out of 10 right lower extremity pain not improved by Tylenol. Asking for some kind of narcotic. Also complaining of pruritus due to dry skin. She reports that she will see Dr. Rodriguez vascular surgery today to assess for ongoing peripheral vascular issues. She reports not being able to tolerate compression as this causes discomfort, but she does attempt to use elevation is much as possible. She reported completing Bactrim and Keflex without any issues. Denies fever, chills, shortness of breath, chest pain, abdominal pain, nausea, vomiting and diarrhea. No past medical history on file. Objective Physical Examination : BP 127/68 Pulse 89 Resp 16 Ht 1.549 m (5' 1 ) Wt 115 kg (253 lb) SpO2 97% BMI 47.80 kg/m??? Temperature Range: General Appearance: morbidly obese and Awake, alert, and in no apparent distress Eyes: Sclera anicteric; conjunctivae pink ENT: Oropharynx clear, without erythema, exudate, or thrush. Neck: Supple, without lymphadenopathy. Pulmonary/Chest: Clear to auscultation, without wheezes, rales, or rhonchi Cardiovascular: Regular rate without murmurs, rubs, or gallops. Abdomen: WNL Extremities: RLE > LLE edema Neurologic: A&Ox4 Skin: RLE with scab formation at distal tibia. She does have scaly skin, erythema and very taut skin. Nontender to palpation. No warmth or drainage. This progress note was completed using a voice title agent system. Every effort was made to ensure accuracy; however, inadvertent computerized title agent errors may be present. Thank you for allowing us to participate in the care of this patient. George Patel CNP [facility] Infectious Disease Nurse Practitioner I prefer to be contacted via [employer] for non-urgent matters. After hours, please call [phone] to have the on-call physician contacted. 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 Urinary tract infection, site unspecified- Primary Kidney stone Calculus of kidney Gross hematuria 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 Gross hematuria- Primary Kidney stone Calculus of kidney Gross hematuria- Primary 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 Kidney stone Calculus of kidney Kidney stone- Primary Calculus of kidney Urinary tract infection without hematuria, site unspecified Gross hematuria Kidney stone- Primary Calculus of kidney 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 Gross hematuria Kidney stone- Primary Calculus of kidney Gross hematuria- Primary Kidney stone Calculus of kidney 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) Gross hematuria- Primary Kidney stone Calculus of kidney Urge incontinence of urine Urge incontinence Gross hematuria- Primary Urge incontinence of urine Urge incontinence Kidney stone- Primary Calculus of kidney 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 Gross hematuria Gross hematuria- Primary Kidney stone Calculus of kidney Kidney stone- Primary Calculus of kidney Lumbar spondylosis- Primary Lumbosacral spondylosis without myelopathy Disorder of sacrum Disorders of sacrum Disorder of sacrum Disorders of sacrum documented [facility]* Diagnosis Urinary tract infection, site unspecified- Primary Gross hematuria Kidney stone Calculus of kidney Urinary tract infection, site unspecified- Primary Gross hematuria Kidney stone Calculus of kidney 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 Urinary tract infection, site unspecified- Primary Kidney stone Calculus of kidney Gross hematuria 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 Gross hematuria- Primary Kidney stone Calculus of kidney Gross hematuria- Primary 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 Kidney stone Calculus of kidney Kidney stone- Primary Calculus of kidney Urinary tract infection without hematuria, site unspecified Gross hematuria Kidney stone- Primary Calculus of kidney 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 Gross hematuria Kidney stone- Primary Calculus of kidney Gross hematuria- Primary Kidney stone Calculus of kidney 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) Gross hematuria- Primary Kidney stone Calculus of kidney Urge incontinence of urine Urge incontinence Gross hematuria- Primary Urge incontinence of urine Urge incontinence Kidney stone- Primary Calculus of kidney 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 Gross hematuria Gross hematuria- Primary Kidney stone Calculus of kidney Kidney stone- Primary Calculus of kidney Lumbar spondylosis- Primary Lumbosacral spondylosis without myelopathy Disorder of sacrum Disorders of sacrum [facility] Diagnosis Urinary tract infection, site unspecified- Primary Gross hematuria Kidney stone Calculus of kidney Urinary tract infection, site unspecified- Primary Gross hematuria Kidney stone Calculus of kidney 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 Urinary tract infection, site unspecified- Primary Kidney stone Calculus of kidney Gross hematuria 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 Gross hematuria- Primary Kidney stone Calculus of kidney Gross hematuria- Primary 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 Kidney stone Calculus of kidney Kidney stone- Primary Calculus of kidney Urinary tract infection without hematuria, site unspecified Gross hematuria Kidney stone- Primary Calculus of kidney 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 Gross hematuria Kidney stone- Primary Calculus of kidney Gross hematuria- Primary Kidney stone Calculus of kidney 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) Gross hematuria- Primary Kidney stone Calculus of kidney Urge incontinence of urine Urge incontinence Gross hematuria- Primary Urge incontinence of urine Urge incontinence Kidney stone- Primary Calculus of kidney 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 Gross hematuria Gross hematuria- Primary Kidney stone Calculus of kidney Kidney stone- Primary Calculus of kidney Kidney stone- Primary Calculus of kidney Urge incontinence of urine Urge incontinence 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 documented [facility]* Diagnosis Well woman exam with routine gynecological exam Routine gynecological examination Breast cancer screening by mammogram Hot flashes due to menopause documented in this encounter [facility]* Diagnosis Urinary tract infection, site unspecified- Primary Gross hematuria Kidney stone Calculus of kidney Urinary tract infection, site unspecified- Primary Gross hematuria Kidney stone Calculus of kidney 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 Urinary tract infection, site unspecified- Primary Kidney stone Calculus of kidney Gross hematuria 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 Gross hematuria- Primary Kidney stone Calculus of kidney Gross hematuria- Primary 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 Kidney stone Calculus of kidney Kidney stone- Primary Calculus of kidney Urinary tract infection without hematuria, site unspecified Gross hematuria Kidney stone- Primary Calculus of kidney 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 Gross hematuria Kidney stone- Primary Calculus of kidney Gross hematuria- Primary Kidney stone Calculus of kidney 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) Gross hematuria- Primary Kidney stone Calculus of kidney Urge incontinence of urine Urge incontinence Gross hematuria- Primary Urge incontinence of urine Urge incontinence Kidney stone- Primary Calculus of kidney 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 Gross hematuria Gross hematuria- Primary Kidney stone Calculus of kidney Kidney stone- Primary Calculus of kidney Kidney stone- Primary Calculus of kidney Urge incontinence of urine Urge incontinence 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 Intention tremor- Primary Essential and other specified forms of tremor [facility] Diagnosis Urinary tract infection, site unspecified- Primary Gross hematuria Kidney stone Calculus of kidney Urinary tract infection, site unspecified- Primary Gross hematuria Kidney stone Calculus of kidney 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 Urinary tract infection, site unspecified- Primary Kidney stone Calculus of kidney Gross hematuria 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 Gross hematuria- Primary Kidney stone Calculus of kidney Gross hematuria- Primary 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 Kidney stone Calculus of kidney Kidney stone- Primary Calculus of kidney Urinary tract infection without hematuria, site unspecified Gross hematuria Kidney stone- Primary Calculus of kidney 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 Gross hematuria Kidney stone- Primary Calculus of kidney Gross hematuria- Primary Kidney stone Calculus of kidney 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) Gross hematuria- Primary Kidney stone Calculus of kidney Urge incontinence of urine Urge incontinence Gross hematuria- Primary Urge incontinence of urine Urge incontinence Kidney stone- Primary Calculus of kidney 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 Gross hematuria Gross hematuria- Primary Kidney stone Calculus of kidney Kidney stone- Primary Calculus of kidney Kidney stone- Primary Calculus of kidney Urge incontinence of urine Urge incontinence 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 Lumbar spondylosis- Primary Lumbosacral spondylosis without myelopathy Disorder of sacrum Disorders of sacrum [facility]* Diagnosis Urinary tract infection, site unspecified- Primary Gross hematuria Kidney stone Calculus of kidney Urinary tract infection, site unspecified- Primary Gross hematuria Kidney stone Calculus of kidney 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 Urinary tract infection, site unspecified- Primary Kidney stone Calculus of kidney Gross hematuria 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 Gross hematuria- Primary Kidney stone Calculus of kidney Gross hematuria- Primary 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 Kidney stone Calculus of kidney Kidney stone- Primary Calculus of kidney Urinary tract infection without hematuria, site unspecified Gross hematuria Kidney stone- Primary Calculus of kidney 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 Gross hematuria Kidney stone- Primary Calculus of kidney Gross hematuria- Primary Kidney stone Calculus of kidney 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) Gross hematuria- Primary Kidney stone Calculus of kidney Urge incontinence of urine Urge incontinence Gross hematuria- Primary Urge incontinence of urine Urge incontinence Kidney stone- Primary Calculus of kidney 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 Gross hematuria Gross hematuria- Primary Kidney stone Calculus of kidney Kidney stone- Primary Calculus of kidney Kidney stone- Primary Calculus of kidney Urge incontinence of urine Urge incontinence 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 Class 3 severe obesity due to excess calories with body mass index (BMI) of 45.0 to 49.9 in adult ([facility])- Primary Venous stasis ulcer of right calf with fat layer exposed with varicose veins ([facility]) Varicose veins of bilateral lower extremities with pain documented in this [facility]* Diagnosis Urinary tract infection, site unspecified- Primary Gross hematuria Kidney stone Calculus of kidney Urinary tract infection, site unspecified- Primary Gross hematuria Kidney stone Calculus of kidney 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 Urinary tract infection, site unspecified- Primary Kidney stone Calculus of kidney Gross hematuria 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 Gross hematuria- Primary Kidney stone Calculus of kidney Gross hematuria- Primary 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 Kidney stone Calculus of kidney Kidney stone- Primary Calculus of kidney Urinary tract infection without hematuria, site unspecified Gross hematuria Kidney stone- Primary Calculus of kidney 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 Gross hematuria Kidney stone- Primary Calculus of kidney Gross hematuria- Primary Kidney stone Calculus of kidney 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) Gross hematuria- Primary Kidney stone Calculus of kidney Urge incontinence of urine Urge incontinence Gross hematuria- Primary Urge incontinence of urine Urge incontinence Kidney stone- Primary Calculus of kidney 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 Gross hematuria Gross hematuria- Primary Kidney stone Calculus of kidney Kidney stone- Primary Calculus of kidney Kidney stone- Primary Calculus of kidney Urge incontinence of urine Urge incontinence 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 Lumbar spondylosis- Primary Lumbosacral spondylosis without myelopathy Lumbar spondylosis- Primary Lumbosacral spondylosis without myelopathy Lumbar spondylosis Lumbosacral spondylosis without myelopathy Lumbar spondylosis Lumbosacral spondylosis without myelopathy [facility] this [facility] filedocumented in this encounter [facility] filedocumented in this encounter [facility] filedocumented in [facility] SystemInstructionsNot on filedocumented in this encounter [facility] System[facility]ructionsNot on filedocumented in this encounter [facility] SystemInstructionsNot on filedocumented in this encounter [facility] SystemInstructionsNot on filedocumented in this encounter [facility] Summary Purpose Family History No Family History Records FoundNo Family History Records FoundNo Family History Records FoundNo Family History Records FoundNo Family History Records FoundNo Family History Records FoundNo Family History Records FoundNo Family History Records FoundNo Family History Records FoundNo Family History Records Found Advance Directives No Advanced Directives Records Found Date Activated Date Inactivated Comments 07/07/2024 8:59 PM 07/19/2024 2:30 PM Date Activated Date Inactivated Comments 11/11/2023 9:16 AM 11/14/2023 9:31 PM Date Activated Date Inactivated Comments 07/07/2024 8:59 PM 07/19/2024 2:30 PM Date Activated Date Inactivated Comments 11/11/2023 9:16 AM 11/14/2023 9:31 PM Additional Source Comments INFORMATION SOURCE (unrecogn ized section and content) DATE CREATED AUTHOR [facility]/17/2018 [facility] DATE CREATED AUTHOR AUTHOR'S ORGANIZ ATION 04/21/2018 [facility] DATE CREATED AUTHOR AUTHOR'S ORGANIZ ATION 01/04/2020 [facility] DATE CREATED AUTHOR AUTHOR'S ORGANIZ ATION 10/05/2021 [facility] DATE CREATED AUTHOR AUTHOR'S ORGANIZ ATION 03/13/2023 [facility] DATE CREATED AUTHOR AUTHOR'S ORGANIZ ATION 03/06/2025 [facility] DATE CREATED AUTHOR AUTHOR'S ORGANIZ ATION 04/19/2025 [facility] DATE CREATED AUTHOR AUTHOR'S ORGANIZ ATION 06/12/2025 [facility] DATE CREATED AUTHOR AUTHOR'S ORGANIZ ATION 07/14/2025 [facility] DATE CREATED AUTHOR AUTHOR'S ORGANIZ ATION 07/17/2025 [facility] Reason for Visit (unrecogniz ed section and content) Reason Comments Discuss Dexa results Pt present today to discuss test results Reason Comments Back Pain Reason Onset Date Comments 02/10/25 [facility]TISTE RESCHEDULE 12/04/2024 Reason Comments Back Pain Reason Comments Follow-up Reason Comments [facility] Visit Reason Onset Date Comments Med Refill 02/23/2025 Reason Comments Follow-up Patient is here toda y for follow up on dx: Intention tremor Reason Comments Venous stasis dermatitis and venous stasis ulceration. Right knee pain 6/10 pain scale tylenol does not help Reason Onset Date Comments Med Refill 06/24/2025 Care Teams (unrecognized sec tion and content) Wind Up Worker Relationship Specialty Start Date End Date Marcus Amador APRN-FNP [address] [place] [address] PCP - General Family Medicine 05/06/24 Wind Up Worker Relationship Specialty Start Date End Date Marcus Amador APRN-FNP [address] [place] [address] PCP - General Family Medicine 05/06/24 Wind Up Worker Relationship Specialty Start Date End Date Marcus Amador APRN-FNP [address] [place] [address] PCP - General Family Medicine 05/06/24 Wind Up Worker Relationship Specialty Start Date End Date Marcus Amador APRN-FNP [address] [place], [place] [phone] PCP - General Family Medicine 05/06/24 Wind Up Worker Relationship Specialty Start Date End Date Marcus Amador MALT HOUSE SUPERVISOR-IT SECURITY ANALYST [address] [place] [address] PCP - General Family Medicine 05/06/24 Wind Up Worker Relationship Specialty Start Date End Date Marcus Amador MALT HOUSE SUPERVISOR-IT SECURITY ANALYST [address] [place] [address] PCP - General Family Medicine 05/06/24 Wind Up Worker Relationship Specialty Start Date End Date Diana Michele APRN-[facility] [address] [place] [address] PCP - General Nurse Practitioner 03/16/25 Wind Up Worker Relationship Specialty Start Date End Date Diana Michele APRN-INTERNET MARKETING COORDINATOR [address] [place] [address] PCP - General Nurse Practitioner 03/16/25 Wind Up Worker Relationship Specialty Start Date End Date Diana Michele APRN-INTERNET MARKETING COORDINATOR [address] [address] PCP - General Nurse Practitioner 03/16/25 Wind Up Worker Relationship Specialty Start Date End Date Diana Michele APRN-INTERNET MARKETING COORDINATOR [address] [place] [address] PCP - General Nurse Practitioner 03/16/25 Wind Up Worker Relationship Specialty Start Date End Date Diana Michele MALT HOUSE SUPERVISOR-INTERNET MARKETING COORDINATOR [address] [place] [phone] PCP - General Nurse Practitioner 03/16/25 FOR RECORDS PERTAINING TO PATIENTS WHO ARE [...] BE BASED ON THE PRIMARY CLINICAL RECORDS. [facility] [employer] [facility]. provides no warranty or guarantee of the accuracy or completeness of information in this document.
== END 2025-08-02 13:05 | disposition home or self-care (01) ==
LOC: MAMMO 13:04
PROVIDERS: PCP Nurse Practitioner Family; Visit Provider Obstetrics & Gynecology
DX: Z12.31 Encounter for screening mammogram for malignant neoplasm of breast (principal); Z80.3 Family history of malignant neoplasm of breast; Z80.1 Family history of malignant neoplasm of trachea, bronchus and lung
CPT/HCPCS: 77063; 77067

== ENCOUNTER 2025-09-08 11:07 | Outpatient (OUT) | payer MEDICARE, MEDICAID, SELFPAY ==
--- OUTSIDE RECORDS SUMMARY | 2024-09-09 08:30 | XMS_ITS ---
Author Organization [facility] in [place] Address [address] [place] [address] Care Team Providers Care Slp Teacher Name Role Phone Grace Sanches Primary Care Provider Trudya Tye Elizondo Unavailable [phone] REASON FOR VISIT 6MO-ASTHMA Encounters Encounter Location Date Provider Diagnosis Pulmonary Medicine [address] [address] 09/09/2024 Tye Perkins Plan Of Treatment No Information Progress Notes * Nikole NORTON SDOB:[birth year] (54 yo F)Acc No.[id number]:09/09/2024 UNLOCKED PROGRESS NOTE Follow Up Patient: Jade TREVINONikole VENCES Rolly :?Tye Perkins DODOB:1970???Age:53 Y ???Sex:FemaleDate:09/09/2024hone:[phone]:[address] [place], [place]-[id number]:DAVID Mckenzie Subjective: * Chief Complaints: * 1 . 6MO-ASTHMA. * Medical History: Objective: * Vitals: Assessment: Plan: * Treatment: * * Electronic signature of Tye Perkins DO on 09/08/2025 at 11:15 AM ESTSign off status: PendingVisit Status:?R/S By O/P (Rescheduled by Office/Provider) * Provider: Matti Perkins DO Date: 11/09/2023 Generated for Printing/Faxing/eTransmitting on:?09/08/2025 11:15 AM EST
--- OUTSIDE RECORDS SUMMARY | 2025-05-11 09:15 | XMS_ITS ---
Author Organization [facility] Address [address] [address] [place] [id number] Care Team Providers Care Bit Setter Name Role Phone Diana Michele Primary Care Provider [phone] Aline Alexander [phone] REASON FOR VISIT Extraction #2 Social History Sex Assigned At : Social History Observation Description Sex Assigned At Female Encounters Encounter Location Date Provider Diagnosis [facility] [address] [place] [id number] 05/11/2025 Aline Alexander Plan Of Treatment Next Appt Details Provider Name:Diana durham, 09/20/2025 11:00:00 AM, [address] [place] [address], [phone], Provider Name:Ceci silverman, 10/05/2025 03:15:00 PM, [address] [place] [address], [phone], Progress Notes * Nikole NORTON SDOB:[birth year] (54 yo F)Acc No.[id number]:05/11/2025 Patient:?Nikole NORTON :?Aline Alexander DMDDOB:1970???Age:54 Y ???Sex:FemaleDate:05/11/2025Phone:[phone]:[address] [place] [address] IRLANDA TRISTAN [id number]:Diana Michele Subjective: * Chief Complaints: * 1 . Extraction #2. * Medical History: Objective: * Vitals: Assessment: Plan: * Treatment: * Billing Information: * Visit Code: * Procedure Codes: * Electronic signature of Aline Alexander DMD on 09/08/2025 at 09:30 AM ESTSign off status: Pending * Provider: Liborio Alexander DMD Date: 0 05/11/2025 Generated for Printing/Faxing/eTransmitting on:?09/08/2025 09:30 AM EST
--- OUTSIDE RECORDS SUMMARY | 2025-07-29 10:15 | XMS_ITS ---
Author Organization [facility] Address [address] [place], [place] [id number] Care Team Providers Care Surveying Technician Name Role Phone Diana Michele Primary Care Provider REASON FOR VISIT neuropathy Social History Sex Assigned At : Social History Observation Description Sex Assigned At Female Encounters Encounter Location Date Provider Diagnosis [address] [place], [place] [phone] 07/29/2025 Diana Michele Plan Of Treatment Next Appt Details Provider Name:Diana durham, 09/20/2025 11:00:00 AM, [address] [place] [address], [phone], Provider Name:Ceci Michael silverman, 10/05/2025 03:15:00 PM, [address] [place] [address], [phone], Progress Notes * Nikole NORTON SDOB:[birth year] (54 yo F)Acc No.[id number]:07/29/2025 Medical Note Patient: Jade Nikole ELLIS :?Diana Michele NP-CDOB:1970???Age:54 Y ???Sex:FemaleDate:07/29/2025Phone:[phone]:[address] [place] [address] IRLANDA TRISTAN [id number] Subjective: * Chief Complaints: * 1 . Neuropathy. * Medical History: Objective: * Vitals: Assessment: Plan: * Treatment: * Billing Information: * Visit Code: * Procedure Codes: * Electronic signature of CELSO Joy on 09/08/2025 at 09:30 AM EST Sign off status: Pending * Provider: CELSO Esparza Date: Generated for Printing/Faxing/eTransmitting on:?09/08/2025 09:30 AM EST
--- OUTSIDE RECORDS SUMMARY | 2025-09-08 09:29 | XMS_ITS | Encounter Summary ---
Author Organization [facility] tem Address [id number] [address] [place] [address] Care Team Providers Care Clay Temperer Name Role Phone LoanmarvaDiana Archana PRESCOTTN-FULL STACK JAVA DEVELOPER Primary Care Pro vider Reason for Referral * Diagnostic Imaging (Routine) - ClosedSpecialtyDiagnoses / ProceduresReferred By ContactReferred To ContactRadiology Diagnoses Lumbar spondylosis Disorder of sacrum Procedures MR lumbar spine without contrast Nicci Goetz PA-C [address] [place] [address] Phone: tel: fax: Referral IDStatusFredaasonSttriny DateExpiration DateVisits RequestedVisits [id number]/22/202510/ Reason for Visit * Auth/Cert (Routine)SpecialtyDiagnoses / ProceduresReferred By ContactReferred To Contact Referral IDStatusReasonStart DateExpiration DateVisits RequestedVisits [id number] Encounter Details DateTypeDepartmentCare Team (Latest Contact Info)Rfuoneqelbn11/12/2025 9:29 AM ESTHospital Encounter [facility] [address] [place] [phone] Nicci Goetz PA-C [address] [place] [address] Lumbar spondylosis; Disorder of sacrum Social History Tobacco UseTypesPacks/DayYears UsedDateSmoking Tobacco: IfljnwIxerndszet463 Started: 1987Passive Smoke Exposure: PastSmokeless Tobacco: NeverAlcohol Use Standard Drinks/WeekCommentsNo0 (1 standard drink = 0.6 oz pure alcohol)[facility] UtilitiesAnswerDate RecordedIn the past 12 months has the [employer], gas, oil, or water sougou threatened to shut off services in your home?No07/08/2024HQ-2 AnswerDate RecordedTotal [id number] - TransportationAnswerDate RecordedIn the past 12 months, has lack of transportation kept you from medical appointments or from getting medications?No07/08/2024In the past 12 months, has lack of transportation kept you from meetings, work, or from getting things needed for daily living?No07/08/2024Housing InstabilityAnswerDate RecordedAre you worried or concerned that in the next two months you may not have stable housing that you own, rent or stay in as a part of a household?No07/08/2024 ChildcareAnswerDate EkatbeabQliwmpjinKghpyav30/12/2019EmploymentAnswerDate JclicpwhCxhwwketcqAewpwez67/12/2019Hunger ScreeningAnswerDate RecordedWithin the past 12 months we worried whether our food would run out before we got money to buy more.Never True08/18/2025Within the past 12 months the food we bought just didn't last and we didn't have money to get more.Never True08/18/2025Purpose - LifeAnswerDate RecordedPurpose and direction in efnwSrnvubi11/14/2021 CommentsNoSex and Gender InformationValueDate RecordedSex Assigned at BirthNot on fileLegal YslOlflqz79/06/2015 11:30 AM EDTGender IdentityNot on fileSexual OrientationNot on filedocumented as of this encounter Plan of Treatment DateTypeDepartmentCare Team (Latest Contact Info)Bizbtzggzfo55/03/2025 1:00 PM ESTOffice Visit [facility] [address] [place] [phone] Nicci Goetz PA-C [address] [place] [address] 01/12/2026 2:15 PM EDTOffice Visit [facility] [address] [place] [phone] Abdulaziz Chery MD [address] [place] [address] 04/15/2026 2:00 PM EDTOffice Visit [facility] [address] [place] [phone] Micaela Edwards MD [address], [address] [phone] NameTypePriorityAssociated DiagnosesDate/TimeMR lumbar spine without contrast ImagingRoutine Lumbar spondylosis Disorder of sacrum 09/08/2025 10:03 AM ESTNameTypePriorityAssociated DiagnosesOrder ScheduleMR lumbar spine without contrastImagingRoutine Lumbar spondylosis Disorder of sacrum Once for 1 Occurrences starting 09/08/2025 until 09/08/2025documented as of this encounter Goals GoalPatient Goal TypeAssociated ProblemsRecent ProgressPatient-Stated?Author home with self care Talita Nichols RN Note: Evaluation of progress towards goal: Patient plans to return home on oral antibiotics. documented as of this encounter Visit Diagnoses Diagnosis Lumbar spondylosis Lumbosacral spondylosis without myelopathy Disorder of sacrum Disorders of sacrum documented in this encounter Additional Health Concerns AssessmentNoted TimePHQ-9 Depression Total Score: 2:18 PM EDT documented as of this encounter Care Teams Team MemberRelationshipSpecialtyStart DateEnd Date Diana Michele, PERCUSSION INSTRUCTOR-FULL STACK JAVA DEVELOPER [address] [place] [phone] PCP - GeneralNurse Practitioner03/16/25documented as of this encounter
--- OUTSIDE RECORDS SUMMARY | 2025-09-08 11:13 | XMS_ITS | Encounter Summary ---
Author Organization [facility] tem Address [id number] [address] [place] [address] Care Team Providers Care Biological Plant Operator Name Role Phone Diana Michele NURSING ASSISTANTS TEACHER-TELEPHONE APPOINTMENT CLERK Primary Care Pro vider Encounter Details DateTypeDepartmentCare Team (Latest Contact Info)Xxiaokvlcwr27/05/2025Results Follow-Up [facility] - Pain Procedures [address] [place] [phone] Hong Castro MD [address] [place], [place] [phone] Bedside Glucose *Place/Obtain serum glucose if >500 per glucometer. Social History Tobacco UseTypesPacks/DayYears UsedDateSmoking Tobacco: PmpdnrKztfiroyhj771 Started: 1987Passive Smoke Exposure: PastSmokeless Tobacco: NeverAlcohol Use Standard Drinks/WeekCommentsNo0 (1 standard drink = 0.6 oz pure alcohol)[facility] UtilitiesAnswerDate RecordedIn the past 12 months has the electric, gas, oil, or water [employer] threatened to shut off services in your home?No07/08/2024HQ-2 AnswerDate RecordedTotal Vpjpq378PRAPARE - TransportationAnswerDate RecordedIn the past 12 months, [...] as a part of a household?No07/08/2024 ChildcareAnswerDate ZwknfdalQekmqxonvHicmvmc25/12/2019EmploymentAnswerDate BlcpzjkrPteqhvywhsLgjpeua14/12/2019Hunger ScreeningAnswerDate RecordedWithin the past 12 months we worried whether our food would run out before we got money to buy more.Never True08/18/2025Within the past 12 months the food we bought just didn't last and we didn't have money to get more.Never True08/18/2025Purpose - LifeAnswerDate RecordedPurpose and direction in hzfaAsvcmat57/14/2021 CommentsNoSex and Gender InformationValueDate RecordedSex Assigned at BirthNot on fileLegal WpxBlrwyk73/06/2015 11:30 AM EDTGender IdentityNot on fileSexual OrientationNot on filedocumented as of this encounter Plan of Treatment DateTypeDepartmentCare Team (Latest Contact Info)Zaatmdmiult73/03/2025 1:00 PM ESTOffice Visit [facility] [address] [place] [phone] Nicci Goetz, PA-C [address] [place] [address] 01/12/2026 2:15 PM EDTOffice Visit [facility] [address] [place] [address] Abdulaziz Chery MD [address] [place] [address] 04/15/2026 2:00 PM EDTOffice Visit [facility] [address] [place] [address] Micaela Edwards MD [address], [facility] [address] [place] [address] documented as of this encounter Goals GoalPatient Goal TypeAssociated ProblemsRecent ProgressPatient-Stated?Author home with self care Talita Nichols, EDUARDO Note: Evaluation of progress towards goal: Patient plans to return home on oral antibiotics. documented as of this encounter Visit Diagnoses Not on filedocumented in this encounter Additional Health Concerns AssessmentNoted TimePHQ-9 Depression Total Score: 2:18 PM EDT documented as of this encounter Care Teams Team MemberRelationshipSpecialtyStart DateEnd Date Diana Michele, NURSING ASSISTANTS TEACHER-TELEPHONE APPOINTMENT CLERK [address] [place] [place] [phone] PCP - GeneralNurse Practitioner03/16/25documented as of this encounter
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
--- OUTSIDE RECORDS SUMMARY | 2025-09-08 11:13 | XMS_ITS | Encounter Summary ---
[id number] [address] [place] [address] Care Team Providers Care Etl Analyst Developer Name Role Phone Diana Michele TRAINING PROJECT MANAGER-VIDEO EDITOR Primary Care Pro vider Encounter Details DateTypeDepartmentCare Team (Latest Contact Info)Bfgjdinvyte70/12/2025Travel Social History Tobacco UseTypesPacks/DayYears UsedDateSmoking Tobacco: ViiwplDyuwgzttmh643 Started: 1987Passive Smoke Exposure: PastSmokeless Tobacco: NeverAlcohol Use Standard Drinks/WeekCommentsNo0 (1 standard drink = 0.6 oz pure alcohol)[facility] UtilitiesAnswerDate RecordedIn the past 12 months has the electric, gas, oil, or water [employer] threatened to shut off services in your home?No07/08/2024HQ-2 AnswerDate RecordedTotal Bfvkj095PRAPARE - TransportationAnswerDate RecordedIn the past 12 months, [...] as a part of a household?No07/08/2024 ChildcareAnswerDate MboxvivkLuvdnyydfRvqrqnd44/12/2019EmploymentAnswerDate WnasnuxuYfhwkioxhwDoafbtv89/12/2019Hunger ScreeningAnswerDate RecordedWithin the past 12 months we worried whether our food would run out before we got money to buy more.Never True08/18/2025Within the past 12 months the food we bought just didn't last and we didn't have money to get more.Never True08/18/2025Purpose - LifeAnswerDate RecordedPurpose and direction in dxkjXopdnru93/14/2021 CommentsNoSex and Gender InformationValueDate RecordedSex Assigned at BirthNot on fileLegal FhdOxrutd25/06/2015 11:30 AM EDTGender IdentityNot on fileSexual OrientationNot on filedocumented as of this encounter Plan of Treatment DateTypeDepartmentCare Team (Latest Contact Info)Toyzhxwlcwe68/03/2025 1:00 PM ESTOffice Visit [facility] [address] [place] [phone] Nicci Goetz PA-C [address] [facility] [place], [place] [phone] 01/12/2026 2:15 PM EDTOffice Visit [facility] [address] [place] [address] [place] [address] [phone] Abdulaziz Chery MD [address] [place] [phone] 04/15/2026 2:00 PM EDTOffice Visit [facility] [address] [place] [phone] Micaela Edwards MD [address], [address] [address] documented as of this encounter Goals GoalPatient Goal TypeAssociated ProblemsRecent ProgressPatient-Stated?Author home with self care Talita Nichols, RN Note: Evaluation of progress towards goal: Patient plans to return home on oral antibiotics. documented as of this encounter Visit Diagnoses Not on filedocumented in this encounter Additional Health Concerns AssessmentNoted TimePHQ-9 Depression Total Score: 2:18 PM EDT documented as of this encounter Care Teams Team MemberRelationshipSpecialtyStart DateEnd Date Diana Michele, TRAINING PROJECT MANAGER-VIDEO EDITOR [address] [place] [address] PCP - GeneralNurse Practitioner03/16/25documented as of this encounter
--- OUTSIDE RECORDS SUMMARY | 2025-09-08 11:13 | XMS_ITS | Clinical Summary ---
Author Organization [facility] Address [address] [place] [address], [address] [place] [address] Care Team Providers Care Line Ordering Clinician Name Role Phone Grace Crump PLATE GLASS INSTALLER HELPER - ADVERTISING SALES ASSISTANT Primary Care Provider [phone] Allergies No known active allergies Medications MedicationSigDispense QuantityRefillsLast FilledStart DateEnd DateStatus Montelukast Sodium (SINGULAIR PO) Take by mouthActive Furosemide (LASIX PO) Take by mouthActive ibuprofen (ADVIL;MOTRIN) 800 MG tablet Take 1 tablet by mouth every 8 hours as needed for Pain 30 tablet 11/19/2017Active Social History Tobacco UseTypesPacks/DayYears UsedDateSmoking Tobacco: Every GixZozqpufdlt365 CommentsNoSex and Gender InformationValueDate RecordedSex Assigned at BirthNot on fileLegal GcqJkhlex36/10/2013 2:03 PM ESTGender IdentityNot on file Sexual OrientationNot on file Last Filed Vital Signs Vital SignReadingTime TakenCommentsBlood Tafyvxol664/8101 6:22 PM EST Aggix826611/19/2017 6:15 PM ZCMTkugaybtmly00.9 ??C (98.4 ??F)11/19/2017 6:15 PM ESTRespiratory Dnpt590511/19/2017 6:15 PM ESTOxygen Vlbnovkgsd05%11/19/2017 6:15 PM ESTInhaled Oxygen Concentration--Rrjnjv50.7 kg (200 lb)11/19/2017 6:15 PM EST Fnqhvn816.1 cm (5' 5 )11/19/2017 6:15 PM ESTBody Mass Index33.28011/19/2017 6:15 PM EST Plan of Treatment DateTypeDepartmentCare Team (Latest Contact Info)Yqnzpovyjyb18/30/2025 2:00 PM ESTOffice Visit [facility] [address] [facility], [address] [place] [address] Maddie TyeDO [address] [facility] [address] [place] [address] IRINA PT - ASTHMAHealth MaintenanceDue DateLast DoneCommentsDepression Screen 1982HIV mqdeqt2210/06/1985Hepatitis C poilaa9110/06/1988DTaP/Tdap/Td vaccine (1 - Tdap)1989Hepatitis B vaccine (1 of 3 - 19+ 3-dose series)1989 Pneumococcal 50+ years Vaccine (1 of 2 - PCV)1989Pap smear1991 Cervical cancer fludhq7110/06/2000HPV (without or with Pap)2000Breast cancer rurdji3210/06/20107250Gsyufs22/10/4866Nksecfzfnfj45/10/2015Colorectal Cancer Screen 2015FIT/FOBT: Average risk2015Fecal-DNA (Cologuard): Average risk 2015Sigmoidoscopy/CT uftipixaopus90/10/2015Lung Cancer Screening &/or Dhacrayyjq48/10/2020Shingles vaccine (1 of 2)2020Flu vaccine (#1) 05/28/2025OVID-19 Vaccine ( season)2025Hepatitis A vaccineAged OutNo longer eligible based on patient's age to complete this topicHib vaccine Aged OutNo longer eligible based on patient's age to complete this topic Meningococcal (ACWY) vaccineAged OutNo longer eligible based on patient's age to complete this topicMeningococcal B vaccineAged OutNo longer eligible based on patient's age to complete this topicPolio vaccineAged OutNo longer eligible based on patient's age to complete this topic Insurance Care Teams Team MemberRelationshipSpecialtyStart DateEnd Date Grace Crump, SHERIE - ADVERTISING SALES ASSISTANT [address] [place] [address] PCP - GeneralNashley Toliamsenxch54/8/25
--- OUTSIDE RECORDS SUMMARY | 2025-09-08 11:13 | XMS_ITS | Patient Health Record ---
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 Name Role Phone Grace Sanches Primary Care Provider Trudya Lara Elizondo Unavailable [phone] Allergies Allergen (clinical drug ingredient) Drug/Non Drug Allergy documented on EMR Reaction Allergy Type Onset Date Status gabapentin Gabapentin hives Drug Allergy ActivegentamicinGentamicinrashDrug AllergyActiveLatexLatexrashAllergyActive Results Component Value Reference Range Notes CT lung screening low-dose Reviewed date:04/12/2025 06:07:18 PM Interpretation: Performing Lab: Notes/Report: Source Facility: [place] [address] CT Scan Report Signed Patient: DONNA NORTON MR#: [id number] : 1970 Acct:[id number] Age/Sex: 54 / F ADM Date: 04/12/25 Loc: CT Attending Dr: Lara Harley D.O. Ordering Physician: Lara Harley D.O. Date of Service: 04/12/25 Procedure(s): CT lung screening low-dose Accession Number(s): [id number] cc: Diana Michele NP [place] [id number] Patient Name: DONNA NORTON MRN: [id number] date: 1970 Sex: F Assigned Patient Location: CT Current Patient Location: CT Accession/Order Number: [id number] Exam Date: 04/12/2025 14:11 Report Date: 04/12/2025 14:14 At the request of: LARA HARLEY DO Procedure: CT lung screening low-dose CT CHEST WITHOUT CONTRAST, LOW DOSE SCREENING: CLINICAL DATA: A 54-year old former smoker COMPARISON: CT lung screen 03/31/2024 TECHNIQUE: Noncontrast axial CT scan images of the chest were obtained under the low dose screening CT protocol. Coronal and sagittal reconstructed images were also submitted. FINDINGS: Mediastinum : Suboptimal evaluation due to low-dose technique. Thoracic aorta appears normal in caliber. Pulmonary trunk appears nondilated. No pericardial effusion. No lymphadenopathy. The esophagus is grossly unremarkable. Lungs: No focal consolidation, pneumothorax or pleural effusion. Trachea and distal airways appear patent. Diffuse bronchial wall thickening. Emphysema. No suspicious noncalcified pulmonary nodule or mass. Upper abdomen: No acute findings. Bony thorax and chest wall: Soft tissues surrounding the chest wall demonstrate no acute findings. Osseous structures demonstrate degenerative change. Remote right-sided rib fracture. CT/CT lung screening low-dose IMPRESSION: NO SUSPICIOUS PULMONARY NODULE OR MASS. LUNG - RADS Version 1.0 Assessment: Category 1, Negative (No nodules and definitely benign nodules). Management: Continue annual lung screening with LDCT in 12 months. Impression dictated by: Reji Morris Jr., D.O. 04/12/2025 2:14 PM Dictation Location: [place] [address] Electronically authenticated by: [id number] Y Date: 04/12/2025 14:14 Dictated By: Reji Morris M.D. 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 Low Dose for Screen ing* Reviewed date:04/12/2025 02:41:06 PM Interpretation: Performing Lab: Notes/Report: Reason For Referral No Information Medications Medication SIG (Take, Route, Frequency, Duration) Notes Start Date End Date Status Albuterol Sulfate HFA 108 (9 0 Base) MCG/ACT 2 puffs Inhalation Q4H; Duration: 90 days As needed for SOB or wheezing ActiveWixela Inhub 100-50 MCG/ACT 1 puff Inhalation BID; Duration: 90 days Rinse after use ActiveFish Oil 1000 MG1 capsule Orally Three times a dayActiveDulera 100-5 MCG/ACTINHALE 2 PUFFS BY MOUTH TWICE DAILY Inhalation; Duration: 31 daysActive DULoxetine HCl 60 MGOral; Duration: 30 DaysActiveAspirin 325 MG1 tablet Orally Once a dayActiveOmeprazole 40 MGOral; Duration: 30 DaysActiveAlbuterol Sulfate (2.5 MG/3ML) 0.083%3 mL as needed Inhalation every 6 hrsActiveMontelukast Sodium 10 MGOral; Duration: 30 DaysActiveMulti Vitamin -1 tablet Orally Once a day ActiveLoratadine 10 MGTAKE 1 TABLET BY MOUTH ONCE DAILY FOR 30 DAYS Oral; Duration: 30 DaysActivemetFORMIN HCl 500 MG1 tablet with a meal Orally Once a dayActive Immunizations Vaccine Route Administration Date Status Comme nts Flu, Flucelvax (07414) 2 yrs +, single-dose syringe (1772-1943) Unknown 08/12/2023 Administered Pneumococcal (Prevnar 20)Qreqwsl27/22/9679PagatucaplbtWOHA-UEH-5 (COVID 19 Pfizer 30mcg/0.3mL)Rffkviq57/23/2021AdministeredTdap (Boostrix)Nxwppyz8412/01/2012 Administered Social History Tobacco Use: Social History Observation Description Date Details (start date - stop date) Former Smoker NA - NA Tobacco Control (Standard) Question Answer Notes Tobacco use: Former smoker Additional Findings: Tobacco cmv-bmogNm-staee cigarette smoker (1-9/day) Problems Problem Type SNOMED Code ICD Code Onset Dates Problem Status W/U Status Risk Notes Problem Chronic obstructive pulmonary disease (70125508) Chronic obstructive pulmonary disease, unspecified (J44.9) ActiveconfirmedProblemMorbid obesity (disorder) (342831176)Morbid (severe) obesity due to excess calories (E66.01)ActiveconfirmedProblemSolitary pulmonary nodule (258629180)Solitary pulmonary nodule (R91.1)ActiveconfirmedProblemLong- term current use of inhaled steroid (595513519)roasterman (current) use of inhaled steroids (Z79.51)ActiveconfirmedProblemTobacco user (034787550)Cigarette nicotine dependence in remission (F17.211)ActiveconfirmedProblemModerate persistent asthma (546708769)Moderate persistent asthma (J45.40)Activeconfirmed ProblemBody mass index 40+ - severely obese (479545279)Body mass index [BMI] 45.0-49.9, adult (Z68.42)Activeconfirmed Vital Signs Heart Rate 90 /min 09/22/2024 Mtsvectxtxg04.1 degrees Mcqfqofpro90/26/2024espiratory Rate18 /min09/22/2024 Betrnqzl55 %09/22/2024lood pressure tpxovckxo06 mm Hg09/22/20249344Akkzam33 in 09/22/2024lood pressure yiysipjl034 mm Hg09/22/20242905Haldee436.0 lbs111/22/2023MI 49.12 kg/m209/22/2024 Encounters Encounter Location Date Provider Diagnosis Pulmonary Medicine [address] [address] 09/22/2024 [place] armando Feng Moderate persistent asthma J45.40 ; Cigarette nicotine dependence in remission F17.211 ; Solitary pulmonary nodule R91.1 ; Encounter for screening for malignant neoplasm of respiratory organs Z12.2 ; roasterman (current) use of inhaled steroids Z79.51 ; Morbid (severe) obesity due to excess calories E66.01 and Body mass index [BMI] 45.0-49.9, adult Z68.42 Pulmonary Medicine [address] [address] 04/12/2025 Lara Harley Assessments Encounter Date Diagnosis (ICD Code) Assessment Notes Treatment Notes Treatment Clinical Notes Section Notes 09/22/2024 Moderate persistent asthma (ICD- 10 - J45.40) Prior treatment: Advair > Dulera Patient is doing well at this current time.She remains on Dulera, but Advair was better. Patient became confused regarding continued refills by her pharmacy for Dulera instead of the Wixela I previously sent in. 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 She voiced she would do this. Otherwise, no new inhaler changes at this time. She was counseled onimportance of weight loss to further help her breathing. Follow-up in 1 year, or sooner if needed. 4Cigarette nicotine dependence in remission (ICD-10 - F17.211) 1ppd x 37 years, quit 02/2024. She states she is cigarette every now and then but officially quit inMay and has not restarted. She feels much better after stopping smoking and now admits that she cannot stand the smell of it. LDCT on 03/31/2024 was unremarkable for any signs of lung cancer. Next LDCT would be due 03/2025. 09/22/2024Solitary pulmonary nodule (ICD-10 - R91.1) 4mm ROSA nodule, unchanged from 03/16/2019 through 03/31/2024. No further monitoring is required for this nodule according to current Fleischner Society guidelines. It will be monitored indirectly via annual LDCT screening. 09/22/2024Encounter for screening for malignant neoplasm of respiratory organs (ICD-10 - Z12.2) Low-dose CT (LDCT) was recommended for lung cancer screening. The patient meets criteria including age 50-77, a smoking history of at least 20 pack-years, is currently smoking or has ceased smoking within the past 15 years, and has no signs or symptoms of lung cancer. Shared decision making performed with the patient. After LDCT has been completed, will review report and/or imaging and provide appropriate recommendations for the patient, including additional follow up if needed. Patient was counseled on smoking cessation/continued tobacco abstinence. Next LDCT will be due 03/2025. 09/22/2024Long term (current) use of inhaled steroids (ICD-10 - Z79.51) Patient was counseled to rinse & gargle with water after inhaled corticosteroid use. 09/22/2024Morbid (severe) obesity due to excess calories (ICD-10 - E66.01) Patient's weight is inducing a restrictive pulmonary physiology. Weight loss indicated: Decrease calories, increase activity. 09/22/2024ody mass index [BMI] 45.0-49.9, adult (ICD-10 - Z68.42) Plan Of Treatment Pending Test Test Name Order Date BMP w/GFR 07/27/2024 CBC AND AUTO DIFF * 07/27/2024 Insurance Providers Payer Name Payer Address Payer Phone Subscriber Number Group Number Insured Name Patient Relationship to Insured Coverage Start Date Coverage End Date [employer] MED[employer]ARE [address] [place]RIST[place]O CASTILLO [id number] Donna Norton Self - patient is the insured MEDICAID [place] [address] [facility] [address] [place], [place] [id number] [phone], PeggySelf - patient is the insured Medical (General) History Medical History History ICD Code Moderate persistent asthma J45.40 roasterman (current) use of inhaled stero ids Z79.51 FANI (obstructive sleep apnea) G47.33 Cigarette nicotine dependence in remissi on F17.211 Solitary pulmonary nodule R91.1 Hypertriglyceridemia E78.1 Surgical History Surgery Date(Month/Year) cyst removal vein ligationcarpal tunnel release-bilateralcholecystectomyHospitalization History Reason Date(Month/Year) Acute Respiratory Failure with Hypoxia-[facility] 11/08/2023
--- OUTSIDE RECORDS SUMMARY | 2025-09-08 11:14 | XMS_ITS | Patient Health Record ---
[facility] Address [address] [place] [id number] Care Team Providers Care Concrete Pavement Installer Name Role Phone Diana Michele Primary Care Provider Funmi Davila Unavailable [phone] Natali Thomason Unavailable [phone] Aline Alexander Unavailable [phone] Grace Crump Unavailable [phone] Gabrielle Margarita Unavailable [phone] Matthew, Yris Unavailable [phone] Ricki, Valery Unavailable [phone] StudSourav chiuin Unavailable [phone] Allergies Allergen (clinical drug ingredient) Drug/Non Drug Allergy documented on EMR Reaction Allergy Type Onset Date Status gabapentin Gabapentin Edema Comments: Clouded thinking. Dr carney Allergy ActivegentamicinGentamicinrashDrug AllergyActiveLatexLatexHivesAllergyActive Results Component Value Reference Range Notes COMPREHENSIVE METABOLIC PANE L WITH GFR Reviewed date:03/17/2025 08:56:17 AM Interpretation: Performing Lab: Notes/Report: GLUCOSE 122 65-125 mg/dL HOR644-42 mg/dLCALCIUM9.08.6-10.5 mg/dLCREATININE, BLOOD0.620.51-1.15 mg/dLeGFR (2020 CKD-EPI)106>59 mL/min/1.13m8PGGSEU061850-431 mmol/LPOTASSIUM4.83.5-5.4 mmol/YNOARLFFW32873-596 mmol/XNL67958-49 mmol/LANION HQJ079-05 mmol/LT. BILIRUBIN0.3<1.3 mg/dLALK UWLR1344-406 U/AJIU-PXAS709-55 U/BPXX-AJRQ069-11 U/LT. PROTEIN7.26.0-8.3 g/dLALBUMIN4.13.5-5.2 g/dL UNLESS OTHERWISE INDICATED, ALL TESTING PERFORMED AT: [employer] [address] [place] [address] MACHINE BINDING FOLDER: JADE ALVARES M.D. CLIA NUMBER [id number] CAP ACCREDITATION AUID [id number] RIBS RT 3 VWS W PA CHEST Reviewed date:03/17/2025 08:56:45 AM Interpretation: Performing Lab: Notes/Report: SEE RESULTS BELOW EXAM: XR RIBS RT 3 VWS W PA CHESTPOCT A1C Reviewed date:03/08/2025 04:41:22 PM Interpretation: Performing Lab: Notes/Report:POCT A1C Reviewed date:06/17/2025 02:26:26 PM Interpretation: Performing Lab: Notes/Report:Ultrasound : Abdominal Reviewed date:03/30/2025 08:14:58 AM Interpretation: Performing Lab: Notes/Report: MM tomosynthesis screening BI Reviewed date:08/02/2025 06:47:10 PM Interpretation: Performing Lab: Notes/Report: Source Facility: [place] [address] Mammography Report Signed Patient: DONNA NORTON MR#: [id number] : 1970 Acct:[id number] Age/Sex: 54 / F ADM Date: 08/02/25 Loc: MAMMO Attending Dr: Erendira Quintanilla D.O. Ordering Physician: Erendira Quintanilla D.O. Results: Date of Service: 08/02/25 Follow Up: Procedure(s): MM tomosynthesis screening BI Accession Number(s): [id number] cc: Erendira Quintanilla D.O.; Diana Michele NP Patient Name: DONNA NORTON MR#: [id number] : 1970 Exam Date: 08/02/2025 Ordering Doctor: DR ERENDIRA QUINTANILLA . RADIOLOGY REPORT PROCEDURE: MM TOMOSYNTHESIS SCREENING BI COMPARISON: MM TOMOSYNTHESIS SCREENING BI, 07/30/2024. MM TOMOSYNTHESIS SCREENING BI, 07/29/2023. MG MAMM SCREEN 3D MICHAEL CAD, 07/27/2022. MG MAMM MICHAEL SCRN W CAD DIG, 03/12/2013. INDICATIONS: Screening Calculator Name NCI Breast Cancer Risk Assessment Tool 5 Year Breast Cancer Risk 3.60% Lifetime Breast Cancer Risk 24.00% Personal Breast Cancer No Personal Ovarian Cancer No Treatments None Family Cancers Sister with breast cancer at age 51; Father with lung cancer at age 55; Aunt-paternal with lung cancer at age 60; Cousin-paternal with breast cancer at age 32. LOCATION: [facility] BREAST COMPOSITION: The breasts are heterogeneously dense, which may obscure small masses. FINDINGS: RIGHT BREAST: No significant suspicious finding. Benign-appearing lymph nodes are noted . similar focal asymmetries are present. Benign-appearing calcifications are present. LEFT BREAST: No significant suspicious finding. Benign-appearing lymph nodes are noted . similar focal asymmetries are present. Benign-appearing calcifications are present. DIAGNOSTIC CATEGORY 2--BENIGN FINDING. NO CHANGE FROM COMPARISON. RECOMMENDATIONS: ROUTINE MAMMOGRAM AND CLINICAL EVALUATION IN 12 MONTHS. Dictated by: Lamin Hedrick MD on 08/02/2025 at 17:33 Approved by: Lamin Hedrick MD on 08/02/2025 at 17:35 Dictated By: Lamin Hedrick M.D. Signed By: 08/02/25 1736 DD/ 1735 TD/TT: Cloth Bleaching Supervisor:Creatinine Reviewed date:04/01/2025 07:41:28 AM Interpretation: Performing Lab: Notes/Report: , [facility]0.770.55-1.02 mg/dLEstimated GFR ( Felipa >60>=60 mL/min/1.73m 2Estimated GFR (Non- Edilia>60>=60 mL/min/1.73m 2 Performing Lab:see noteML - [facility] LBCalcium Reviewed date:04/01/2025 07:41:23 AM Interpretation: Performing Lab: Notes/Report: [facility] ,Calcium9.18.5-10.1 mg/dLPerforming Lab:see noteML - [facility] LBCT lung screening low-dose Reviewed date:04/13/2025 12:40:05 PM Interpretation: Performing Lab: Notes/Report: Source Facility: [facility] [place] [address] [place] [address] CT Scan Report Signed Patient: DONNA NORTON MR#: [id number] : 1970 Acct:[id number] Age/Sex: 54 / F ADM Date: 04/12/25 Loc: CT Attending Dr: Lara Harley D.O. Ordering Physician: Lara Harley D.O. Date of Service: 04/12/25 Procedure(s): CT lung screening low-dose Accession Number(s): [id number] cc: Diana Michele NP [place] [address] Patient Name: DONNA NORTON MRN: [id number] date: 1970 Sex: F Assigned Patient Location: CT Current Patient Location: CT Accession/Order Number: [id number] Exam Date: 04/12/2025 14:11 Report Date: 04/12/2025 [...] Jr., D.O. 04/12/2025 2:14 PM Dictation Location: [place] [address] Electronically authenticated by: [id number] Y Date: 04/12/2025 14:14 Dictated By: Reji Morris M.D. Signed By: 04/12/25 1417 DD/ 1414 TD/TT: Cloth Bleaching Supervisor:ABDOMEN LMTD Reviewed date:03/26/2025 02:25:13 PM Interpretation: Performing Lab: Notes/Report: SEE RESULTS BELOW ABDOMEN LIMITED ULTRASOUNDStrep Screen Reviewed date:10/26/2024 06:30:29 PM Interpretation: Performing Lab: Notes/Report: ResultNegativePOCT A1C Reviewed date:12/07/2024 05:33:00 PM Interpretation:6.5 Performing Lab: Notes/Report: Reason For Referral No Information Medications Medication SIG (Take, Route, Frequency, Duration) Notes Start Date End Date Status Ztbsr-0-dpgw Ethyl Esters 1 GM 2 capsules Orally Twice a day; Duration: 90 days 06/16/2024ctiveMulti For Her -as directed Orally daily11/14/2021ctive Loratadine 10 MGTAKE 1 TABLET BY MOUTH ONCE DAILY FOR 90 DAYS Oral; Duration: 90 DaysActiveProlia 60 MG/MLas directed SubcutaneousActiveCyclobenzaprine HCl 5 MG1 tablet at bedtime as needed Orally Once a day; Duration: 30 day(s)03/17/2025 ActiveMupirocin 2 %1 application Externally Twice a day; Duration: 14 daysas neededActiveCalcium Carb-Cholecalciferol 600-10 MG-MCGTake 1 tablet by mouth once daily; Duration: 90ActiveVentolin HFA 108 (90 Base) MCG/ACT2 puff as needed Inhalation every 4 hrswhatever inhaler insurance coversActiveOmeprazole 40 MG TAKE 1 CAPSULE BY MOUTH 30 MINUTES BEFORE MORNING MEAL ONCE A DAY FOR 90 DAYS; Duration: 90ActiveFlonase Allergy Relief 50 MCG/ACT1 spray in each nostril Nasally once daily; Duration: 30 ndbnMEQ86/30/2024ActiveDULoxetine HCl 60 MG1 capsule Oral Once a day; Duration: 30 daysActiveFluticasone-Salmeterol 100-50 MCG/ACTINHALE 1 PUFF TWICE DAILY RINSE AFTER USE Inhalation; Duration: 90 Days ActiveAlbuterol Sulfate (2.5 MG/3ML) 0.083%3 mL as needed Inhalation every 6 hrs; Duration: 30 days12/23/2023ctivemetFORMIN HCl ER 500 MG1 tablet with evening meal Orally Once a day; Duration: 90 daysActiveAmitriptyline HCl 25 MG1 tablet at bedtime Orally Once a day; Duration: 90 days5Active Ondansetron HCl 4 MGTAKE 1 TABLET BY MOUTH ONCE DAILY NEEDED FOR NAUSEA; Duration: ctiveClotrimazole 1 % 1 application Externally Twice a day As needed 08/05/2025tiveAspirin 325 MG1 tablet Orally Once a day; Duration: 30 days 11/14/2021ctiveTriamcinolone Acetonide 0.1 % 1 application Externally two times a day As needed as ambmlp115Active Immunizations Vaccine Route Administration Date Status Comme nts *Axlezmazb-Jtfusaiyk-Fsevf te IM Intramuscular 08/12/2023 Administered *Prevnar 17Xqaqmee95/22/2024dministered*Tdap (Adacel)-VFCIM Intramuscular 12/01/2012dministeredStatus:Complete ,Reason:Given or N/AInfluenza (split), 3 yrs and aboveIM Fxezdlqisonpp08/06/2005AdministeredStatus:Complete ,Reason:Given or N/AInfluenza (split), 3 yrs and aboveIM Kfyibkttrdmlm59/27/2010dministered Status:Preliminary ,Reason:Given or N/AInfluenza (split), 3 yrs and aboveIM Ilsrbashtllll63/26/2011dministeredStatus:Complete ,Reason:Given or N/A ,Given at 2:19pmInfluenza (split), 3 yrs and aboveIM Ocfnfdrucgjsl67/08/2012 AdministeredStatus:Complete ,Reason:Given or N/AInfluenza (split), 3 yrs and aboveIM Lntlmvrsjqtpv55/28/2013dministeredStatus:Complete ,Reason:Given or N/A ,Given at 3:15pmInfluenza (split), 3 yrs and aboveIM Lzgwkfseyziuz99/16/2014 AdministeredStatus:Complete ,Reason:Given or N/AInfluenza, seasonal, injectable, preservative free, 3 yrs and aboveIM Sigutpgctydmv35/27/2015dministered Status:Complete ,Reason:Given or N/APneumococcal conjugate PCV 7IM Intramuscular 08/07/2000AdministeredStatus:Complete ,Reason:Given or N/ATd (adult), adsorbed-PrivateOTH Other/Fxetvgkaizgsl58/11/2000AdministeredStatus:Complete ,Reason:Given or N/A Social History Tobacco Use: Social History Observation Description Date Details (start date - stop date) Former Smoker NA - NA Sex Assigned At : Social History Observation Description Sex Assigned At Female Household Question Answer Notes Marital status: Number of adults in household:2CAGE-AID Questionnaire (2018 Edition) Question Answer Notes Have you ever felt that you ought to cut down on your drinking or drug use? No patient entered data Have people annoyed you by c riticizing your drinking or drug use? No patient entered data Have you ever felt bad or gu ilty about your drinking or drug use? No patient entered data Have you ever had a drink or used drugs first thing in the morning to steady your nerves or to get rid of a hangover? No patient entered data CAGE-AID Score 0 InterpretationNegativePRAPARE Question Answer Notes Date Completed/Updated: 11/19/2024 isaura nt entered data What is your current housing situation? I have housing patient entered data Are you worried about losing your housing? No patient entered data What is the highest level of school that you have finished? High school diploma or GED patient entered data What is your current work situation? Otherwise unemployed but not seeking work (ex. student, retired, disabled, unpaid primary resident care aide) patient entered data In the past year, have you o r any family members you live with been unable to get any of the following when it was really needed? Check all that apply I do not have problems meeting my needs Has lack of transportation kept you from medical appointments, meetings, work or from getting things needed for daily living?NoHow often do you see or talk to people that you care about and feel close to? (For example: talkingto friends on the phone, visiting friends or family, going to presybeterian or club meetings)1 or 2 times a weekpatient entered dataHow stressed are you? Stress is when someone feels tense, nervous, anxious, or can't sleep at nightbecause their mind is troubledNot at allpatient entered dataIn the past year have you spent more than 2 nights in a row in a residential, skilled nursing, residential center, orjuvenile correctional facility?Nopatient entered dataAre you a refugee?Nopatient entered dataWhat country are you from?[place] Statespatient entered dataDo you feel physically and emotionally safe where you currently live?Yespatient entered dataIn the past year, have you been afraid of your partner or ex-partner?Nopatient entered dataPRAPARE Score:5Tobacco Control (Standard) Question Answer Notes Tobacco use: Former smoker Additional Findings: Tobacco non-userCurrent nonsmoker Problems Problem Type SNOMED Code ICD Code Onset Dates Problem Status W/U Status Risk Notes Problem Chronic pain (34014701) Other chronic geovanni n (G89.29) ActiveconfirmedProblemAge-related osteoporosis (137338489)Age-related osteoporosis without current pathological fracture (M81.0)ActiveconfirmedProblem Seasonal allergy (630601958)Seasonal allergies (J30.2)ActiveconfirmedProblem Prediabetes (802383062)Prediabetes (R73.03)ActiveconfirmedProblemSolitary nodule of lung (313096624)Lung nodule < 6cm on CT (R91.1)ActiveconfirmedProblemMorbid obesity (116984939)Obesity, morbid, BMI 50 or higher (E66.01)Activeconfirmed ProblemHypertriglyceridemia (656282821)Hypertriglyceridemia (E78.1)Active confirmedProblemAcute exacerbation of chronic obstructive airways disease (166800687)COPD exacerbation (J44.1)ActiveconfirmedProblemThrombocytosis (5215207)Thrombocytosis (D47.3)ActiveconfirmedProblemKidney stone (52955585) Kidney stone (N20.0)ActiveconfirmedProblemNeuropathy (350001307)Neuropathy (G62.9)ActiveconfirmedProblemBody mass index 40+ - severely obese (763452528)BMI 50.0-59.9, adult (Z68.43)ActiveconfirmedProblemPeripheral venous insufficiency (46478729)Venous insufficiency (I87.2)ActiveconfirmedProblemUncomplicated moderate persistent asthma (242766745)Moderate persistent asthma without complication (J45.40)ActiveconfirmedProblemLow back pain (finding) (437598825) Other low back pain (M54.59)ActiveconfirmedProblemBody mass index 40+ - morbidly obese (096250485)Body mass index (BMI) of 50-59.9 in adult (Z68.43)Active confirmedProblemGastroesophageal reflux disease (702148654)Gastroesophageal reflux disease, esophagitis presence not specified (K21.9)Activeconfirmed Comment:-Pt still GERD controlled at this time -does not recall being treated for GERd in the past - but looks like she has been -Discussed importance of continued lifestyle modifications which include dietary changes, weight loss, and regular exercise; provided with pt education handout regarding lifestyle modifications -No red flag symptoms on examination -pt started on omeprazole 40mg at last visit (increased from omeprazole 20mg QD ast last visit in 09/2019) -now not having really any acid reflux at this time. no triggers. -cough has gotten better too. but not resolved. still going to get into ENT -c/w current medication at this time -f/u in 3 months, ProblemOsteoarthritis of knee (065272108)Osteoarthritis, knee (M17.10)Active confirmed Comment:DC the motrin begin naprosyn 250 mg every 8 hours with Tylenol ES 650, Vital Signs Heart Rate 83 /min 08/05/2025 Kassy Carey 08/05/2025 02:07:11 PM EDT > Temperature 98.7 degrees Fahrenheit 08/05/2025 Kassy Reyes 08/05/2025 02:07:11 PM EDT > Respiratory Rate 18 /min 08/05/2025 Alda Carey genna 08/05/2025 02:07:11 PM EDT > Oximetry 96 % 08/05/2025 Kassy Carey 08/05/2025 02:07:11 PM EDT > Blood pressure diastolic 84 mm Hg 08/05/2025 Kassy Quick 08/05/2025 02:07:11 PM EDT > Height-cm 149.86 cm 08/05/2025 Carey Kassy 08/05/2025 02:07:11 PM EDT > Weight-kg 120.97 kg 08/05/2025 Carey Kassy 08/05/2025 02:07:11 PM EDT > Height 59.0 in 08/05/2025 Aurelio Kassy 08/05/2025 02:07:11 PM EDT > Blood pressure systolic 130 mm Hg 08/05/2025 Courtney watson Kassy 08/05/2025 02:07:11 PM EDT > Weight 266.7 lbs 08/05/2025 Carey Kassy 08/05/2025 02:07:11 PM EDT > BMI 53.86 kg/m2 08/05/2025 Carey Kassy 08/05/2025 02:07:11 PM EDT > Encounters Encounter Location Date Provider Diagnosis [facility] [address] [place], [place] [id number] 09/14/2024 Natali Thomason Encounter for dental examination and cleaning without abnormal findings Z01.20 and Encounter for screening for dental disorders Z13.84 Main [address] [place] [id number] 09/15/2024 Valery Ricki Wound of skin T14.8X XA ; Obesity, morbid, BMI 50 or higher E66.01 ; Body mass index (BMI) of 50-59.9 in adult Z68.43 and Preoperative clearance Z01.818 Main [address] [place] [id number] 10/26/2024 Margarita Weininger Sore throat J02.9 ; URI with cough and congestion J06.9 and Medication refill Z76.0 Main [address] [place], [place] [id number] 11/19/2024 Yris Matthew Skin rash R21 and Elevated blood pressure reading R03.0 [address] [place], [place] [id number] 12/07/2024 Diana Myerholkory Prediabetes R73.03 ; Gastroesophageal reflux disease, esophagitis presence not specified K21.9 ; Seasonal allergies J30.2 ; Venous insufficiency I87.2 ; Moderate persistent asthma without complication J45.40 ; Other low back pain M54.59 ; Other chronic pain G89.29 ; Age-related osteoporosis without current pathological fracture M81.0 ; BMI 50.0-59.9, adult Z68.43 and Obesity, morbid, BMI 50 or higher E66.01 [address] [place], [place] [id number] 02/05/2025 Kermit Studd Mild intermittent as thma, unspecified whether complicated J45.20 and COPD exacerbation J44.1 [address] [place], [place] [id number] 03/08/2025 Diana Loanholkory Prediabetes R73.03 ; Gastroesophageal reflux disease, esophagitis presence not specified K21.9 ; Seasonal allergies J30.2 ; Venous insufficiency I87.2 ; Moderate persistent asthma without complication J45.40 ; Other low back pain M54.59 ; Age-related osteoporosis without current pathological fracture M81.0 ; Kidney stone N20.0 ; BMI 50.0-59.9, adult Z68.43 and Obesity, morbid, BMI 50 or higher E66.01 Dental [facility] [address] [place], [place] [id number] 03/16/2025 Aline Alexander Body mass index (BMI ) of 50-59.9 in adult Z68.43 ; Encounter for screening for dental disorders Z13.84 ; Encounter for dental examination and cleaning with abnormal findings Z01.21 ; Necrosis of pulp K04.1 ; Dietary counseling Z71.3 and Exercise counseling Z71.82 [address] [place], [place] [id number] 03/16/2025 Yris Matthew Rib pain on right si de R07.81 Dental Main [facility] [place], [place] [id number] 04/08/2025 Aline Alexander Encounter for screen ing for dental disorders Z13.84 and Necrosis of pulp K04.[address] [place], [place] [id number] 06/17/2025 Diana Myerholtz Prediabetes R73.03 ; Gastroesophageal reflux disease, esophagitis presence not specified K21.9 ; Seasonal allergies J30.2 ; Venous insufficiency I87.2 ; Moderate persistent asthma without complication J45.40 ; Other low back pain M54.59 ; Age-related osteoporosis without current pathological fracture M81.0 ; Kidney stone N20.0 ; Neuropathy G62.9 ; BMI 50.0-59.9, adult Z68.43 and Obesity, morbid, BMI 50 or higher E66.[address] [place], [place] [id number] 08/05/2025 Diana Myerholtz Neuropathy G62.9 ; Pruritic rash L28.2 ; BMI 50.0-59.9, adult Z68.43 and Obesity, morbid, BMI 50 or higher E66.[address] [place], [place] [id number] 09/14/2024 Diana Myerholtz [id number] [place], [place] [id number]/Katherine [address] [place], [place] [id number] YgjehutigPzxn[address] [place], [place] [id number] FkpecolzgTmve[address] [place], [place] [id number] [address] [place], [place] [id number] 01/21/2025Katherine MyerholtzGastroesophageal reflux disease, esophagitis presence not specified K21.6Myct[address] [place], [place] [id number]/ Diana [address]gNlrl[address] [place], [place] [id number] AqeelRight upper quadrant pain R10.62[address] [place], [place] [id number] 03/17/2025Ramsha [address]fr[address]Pbrd[address] [place], [place] [id number]/11/2024Ramsha [address] [place], [place] [id number]/Katfederico Michele Gastroesophageal reflux disease, esophagitis presence not specified K21.9[address] [facility] [place] [id number]/Komal [address]Hfn[address] [place], [place] [id number]/Komal GthhzkTanu[address], [place] [id number]/Katacacia Ryne Assessments Encounter Date Diagnosis (ICD Code) Assessment Notes Treatment Notes Treatment Clinical Notes Section Notes 03/16/2025 Rib pain on right side (ICD-10 - R07.81) Differentials include rib fracture, musculoskeletal vs liver etiology given location of her pain. Iwill get chest xray to rule out chest etiologies. Also blood work to evaluate liver function. IF normal will consider ultrasound. Patient was advised to use ice and moist heat as needed. In case of pain, use Tylenol Arthritis 650 mg TID or Motrin 800mg TID PRN - pt was advised to stay hydrated and not take these empty stomach and PVU. Discussed reassuring vs non reassuring symptoms and when to call the office or go to ER. PVU 03/17/2025Right upper quadrant pain (ICD-10 - R10.11)04/08/2025Encounter for screening for dental disorders (ICD-10 - Z13.84)05/19/2025Gastroesophageal reflux disease, esophagitis presence not specified (ICD-10 - K21.9)03/08/2025 Prediabetes (ICD-10 - R73.03)Pt is stable on current medications. Will continue current medications. F/u 3 months & PRN03/08/2025Gastroesophageal reflux disease, esophagitis presence not specified (ICD-10 - K21.9)Will add famotidine as needed to help when eating certain foods. Will continue current medications. F/u 3 months & PRN03/16/2025ody mass index (BMI) of 50-59.9 in adult (ICD-10 - Z68.43)06/17/2025Prediabetes (ICD-10 - R73.03)A1C stable. Will continue current medications. Encouraged healthy diet and exercise. F/u 3 months & PRN 08/05/2025Neuropathy (ICD-10 - G62.9)Will start amitriptyline to help with symptoms. Discussed potentia side effects of medication. F/u 6 weeks & PRN 09/14/2024Encounter for dental examination and cleaning without abnormal findings (ICD-10 - Z01.20)09/15/2024Obesity, morbid, BMI 50 or higher (ICD-10 - E66.01)09/15/2024Wound of skin (ICD-10 - T14.8XXA) Pt has a few blisters she believes are from allergic reaction to anti-fungal powder. RX sent to pt pharmacy for mupirocin ointment. Pt currently using triple antibiotic ointment at home with slight relief. F/U PRN 10/26/2024URI with cough and congestion (ICD-10 - J06.9)10/26/2024Sore throat (ICD-10 - J02.9)11/19/2024Elevated blood pressure reading (ICD-10 - R03.0) BP noted to be elevated without hx of HTN Advised to check BP at home and keep a record of it to bring on next visit Discussed having diet low in salt and exercise. 11/19/2024Skin rash (ICD-10 - R21) Likely dermatitis by the appearance of rash. I will treat with oral steroid due to extensive skin involvement. Also giving topical steroid. Discussed reassuring vs non reassuring symptoms and when tocall the office or go to ER. PVU If symptoms not improving I will consider dermatology referral for further evaluation. 12/07/2024Prediabetes (ICD-10 - R73.03)Pt is stable on current medications. Will continue current medications. F/u 3 months & PRN12/07/2024Gastroesophageal reflux disease, esophagitis presence not specified (ICD-10 - K21.9)Will add famotidine as needed to help when eating certain foods. Will continue current medications.F/u 3 months & PRN01/21/2025Gastroesophageal reflux disease, esophagitis presence not specified (ICD-10 - K21.9)02/05/2025Mild intermittent asthma, unspecified whether complicated (ICD-10 - J45.20)02/05/2025OPD exacerbation (ICD-10 - J44.1) Pt has asthma followed by pulmonology at this time I believe the symptoms are associated with an exacerbation of COPD I will tart prednisone and azithromycin pt agreeable with plan discussed signs and symptoms when to be seen in the ER 03/08/2025Seasonal allergies (ICD-10 - J30.2)Allergies stable. Will continue current medications. F/u 3 months & PRN12/07/2024Seasonal allergies (ICD-10 - J30.2)Allergies stable. Will continue current medications. F/u 3 months & PRN 10/26/2024Medication refill (ICD-10 - Z76.0)09/15/2024ody mass index (BMI) of 50-59.9 in adult (ICD-10 - Z68.43)09/14/2024Encounter for screening for dental disorders (ICD-10 - Z13.84)08/05/2025Pruritic rash (ICD-10 - L28.2)Will give antifungal cream to help with symptoms.06/17/2025Gastroesophageal reflux disease, esophagitis presence not specified (ICD-10 - K21.9)GERD stable. Will continue current medications. F/u 3 months & PRN04/08/2025Necrosis of pulp (ICD- 10 - K04.1)03/16/2025Encounter for screening for dental disorders (ICD-10 - Z13.84)03/16/2025Encounter for dental examination and cleaning with abnormal findings (ICD-10 - Z01.21)03/08/2025Venous insufficiency (ICD-10 - I87.2)Pt to continue to f/u with Cptsuwij18/21/2025Seasonal allergies (ICD-10 - J30.2) Allergies stable. Will continue current medications. F/u 3 months & PRN 08/05/2025MI 50.0-59.9, adult (ICD-10 - Z68.43)Body Mass Index: Care Instructions material was pzsmnzv4009/15/2024reoperative clearance (ICD-10 - Z01.818) Pt desires clearance for a back injection. Her insurance requests she be cleared from her PCP for right leg cellulitis. Pt was cleared by Vascular. Pt needs a letter to be sent stating her PCP clears her leg cellulitis she was seen in in the hospital for. 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)03/08/2025Other low back pain (ICD-10 - M54.59) Pt to continue to f/u with Pain Nkqftcosbm53/20/2025Dietary counseling (ICD-10 - Z71.3)06/17/2025Moderate persistent asthma without complication (ICD-10 - J45.40)Pt to continue to f/u with Xxfbndccx91/10/2025Other low back pain (ICD-10 - M54.59)Pt to continue to f/u with Pain Qjucttqpaf53/12/2025ge-related osteoporosis without current pathological fracture (ICD-10 - M81.0)Pt to continue to f/u with OB/GYN12/07/2024Other chronic pain (ICD-10 - G89.29) 06/17/2025Other low back pain (ICD-10 - M54.59)Pt to continue to f/u with Pain Atvwbadvpj49/20/2025Exercise counseling (ICD-10 - Z71.82)06/17/2025ge-related osteoporosis without current pathological fracture (ICD-10 - M81.0)Pt to continue to f/u with OB/GYN03/08/2025Kidney stone (ICD-10 - N20.0)Pt to continue to f/u with Gwxdhxr2912/07/2024ge-related osteoporosis without current pathological fracture (ICD-10 - M81.0)Pt to continue to f/u with [facility] 12/07/2024MI 50.0-59.9, adult (ICD-10 - Z68.43)Body Mass Index: Care Instructions material was amsiweo3603/08/2025MI 50.0-59.9, adult (ICD-10 - Z68.43)Body Mass Index: Care Instructions material was jpegjvm2006/17/2025Kidney stone (ICD-10 - N20.0)Pt to continue to f/u with Cpdpqzh3406/17/2025Neuropathy (ICD-10 - G62.9)Will start lyrica to help with symptoms. Discussed potentia side effects of medication. OARRS reviewed. Rx sent. F/u 6 weeks & PRN03/08/2025 Obesity, morbid, BMI 50 or higher (ICD-10 - E66.01)12/07/2024Obesity, morbid, BMI 50 or higher (ICD-10 - E66.01)06/17/2025MI 50.0-59.9, adult (ICD-10 - Z68.43)Body Mass Index: Care Instructions material was tmcgzvv4806/17/2025Obesity, morbid, BMI 50 or higher (ICD-10 - E66.01) Plan Of Treatment Next Appt Details Provider Name:Diana durham, 09/20/2025 11:00:00 AM, [address] [place] [address], [phone], Provider Name:Ceci silverman, 10/05/2025 03:15:00 PM, [address] [place] [address], [phone], Insurance Providers Payer Name Payer Address Payer Phone Subscriber Number Group Number Insured Name Patient Relationship to Insured Coverage Start Date Coverage End Date [employer] [address] [place] [phone] [id number] [facility] Donna Norton Self - patient is the insured 5 [employer] [employer] [place] [address] [place] [id number] [phone] [id number], PeggySelf - patient is the [id number] 2024[facility]icaid [facility] [address] [place], [place] [id number], PeggySelf - patient is the [id number] 2023 Medical (General) History Medical History History ICD Code Asthma Chronic lung diseaseDeep vein thrombosis, COMMENTS: Right legChronic lung diseasePneumonia 02/2019PrediabetesGERDLow back painVenous insuffiencySurgical History Surgery Date(Month/Year) Cyst Removed: Left Carpal Tunnel Surgery - [id number] carpal tunnel kauudpo0511-81-57 Breast Biopsy - Right, fibroadenoma06/01/2015carpal tunnel release- left11/2020vein lasered on left leg05/2023Hospitalization History Reason Date(Month/Year) see surgical hx cglduxtojf09/22/35Smj03/2024
--- OUTSIDE RECORDS SUMMARY | 2025-09-08 11:14 | XMS_ITS | Clinical Summary ---
Author Organization [facility] tem Address [id number] [address] [place] [address] Care Team Providers Care Building Maintenance Technician Name Role Phone Diana Michele GASKET NOTCHER-PET CARE TECHNICIAN Primary Care Pro vider Allergies Active AllergyReactionsCriticalityNoted DjtrMdmmiibyFmajltdwc57/20/2024 WdmsorpfybOrmxgiyjGfww50/25/2021 Facial, legs, feet swelling TjjtlbddpaTyncFak78/01/3899FrqcxZosmyZsx57/03/2018 Medications MedicationSigDispense QuantityRefillsLast FilledStart DateEnd DateStatus aspirin 325 mg EC tablet Take 1 tablet (325 mg total) by mouth in the morning. Circulation, high risk for blood clots.Active loratadine (CLARITIN) 10 mg tablet Indications:allergic rhinitisTake 1 tablet (10 mg total) by mouth nightly Indications: inflammation of the nose due to an allergy.Active montelukast (SINGULAIR) 10 mg tablet Indications:maintenance therapy for asthmaTake 1 tablet (10 mg total) by mouth nightly Indications: controller medication for asthma.Active ondansetron (ZOFRAN) 4 mg tablet Take 1 tablet (4 mg total) by mouth every 6 (six) hours as needed for nausea or vomiting for up to 20 doses. 20 tablet 03/18/2018Active CALCIUM 600 + D,3, 600 mg(1,500mg) -400 unit per tablet Indications:prevention of vitamin D deficiencyTake 1 tablet by mouth in the morning. Indications: prevention of vitamin D deficiency.Active omeprazole (PriLOSEC) 40 mg capsule Indications:gastroesophageal reflux diseaseTake 1 capsule (40 mg total) by mouth in the morning. Indications: gastroesophageal reflux disease.07/19/2020Active mometasone-formoterol (DULERA) 100-5 mcg/actuation inhaler Indications:maintenance therapy for asthmaInhale 2 puffs in the morning and 2 puffs before bedtime. Indications: controller medication for asthma.Active acetaminophen (TYLENOL ARTHRITIS) 650 mg 8 hr tablet Take 1 tablet (650 mg total) by mouth every 8 (eight) hours as needed for pain. Active albuterol (PROVENTIL HFA;VENTOLIN HFA) 90 mcg/actuation inhaler Indications:BronchitisInhale 2 puffs every 6 (six) hours as needed for wheezing. 18 g 3Active omega 2-mjj-hpp-fish oil (Fish OiL) 300-1,000 mg capsule Take by mouth.Active metFORMIN XR (GLUCOPHAGE XR) 500 mg 24 hr tablet Take 1 tablet (500 mg total) by mouth daily with breakfast. 30 tablet 1104Active denosumab (PROLIA) 60 mg/mL syringe injection Inject 1 mL (60 mg total) under the skin once.Active fluticasone propionate (FLONASE ALLERGY RELIEF) 50 mcg/actuation nasal spray Administer 1 spray into each nostril in the morning.4Active beurqnfc-lbnk-MG-calcium &mins (THERAGRAN-M) 9 mg iron-400 mcg tablet Take 1 tablet by mouth in the morning.Active buPROPion XL (WELLBUTRIN XL) 150 mg 24 hr tablet Take 1 tablet (150 mg total) by mouth before bedtime.Active DULoxetine (CYMBALTA) 60 mg capsule Indications:neuropathic painTake 1 capsule (60 mg total) by mouth in the morning. Indications: neuropathic pain. 30 capsule 5Active Active Problems ProblemNoted DateDiagnosed DateElevated d-dimer07/08/2024Sore unpbaq3707/08/2024 Former seydsw6007/08/20246045Hgyfzhknofrl18/11/2024lass 3 severe obesity due to excess calories with body mass index (BMI) of 45.0 to 49.9 in adult07/08/2024 Chronic pain vsvqalfk85/11/4361Bghypfexrg13/11/6488Ptwcohbngui95/11/2024 Cellulitis, unspecified cellulitis site07/07/2024rthritis of left knee 12/18/2023cute respiratory failure with lngigcv9311/09/2023Influenza A011/08/2023 COPD (chronic obstructive pulmonary disease)11/08/20236234Kavbyrmevfl72/12/2024 Venous stasis dermatitis of both lower njidssrchet86/26/2023Venous stasis ulcer of right calf with fat layer exposed with varicose veins07/23/2023leeding from varicose vein06/07/2023Urge incontinence of urine03/05/2022 Overview (01/04/2025): ==== 01/04/2025 ==== off of meds voiding [...] to stop to see how she does Assessment & Plan (03/05/2022 3:37 PM EDT): Rarely if ever takes a potassium. Mixed lovykcominzs11/26/2022 Overview (11/22/2021): ====11/22/21==== recent issues with mixed incontinence. She will work on pelvic floor exercises and try oxybutynin ER 5 mg. Assessment & Plan (11/22/2021 3:48 PM EST): She will return in 1-2 months to go over the results of her urine tests and to see how she does with the oxybutynin. I told her to call me sooner if she wants to increase the dose or try an alternative medication. Lumbar mgskzshakxg09/28/2021 Overview (05/24/2021): Added automatically from request for surgery [id number] Disorder of fpxvqn2103/21/2021umbar xfnlvnon27/25/2021ain of left calf03/21/2021 Varicose veins of bilateral lower extremities with pain11/24/2020Varicose veins of leg with swelling, zxobdeufq48/28/2021train of knee10/25/2017 Overview (07/08/2024): [facility] CLAIM #[id number] Mineral metabolism vauycoji74/05/2017 Overview (01/04/2025): ==== 01/04/2025 ==== reiterated the need to [...] elevated. The plan was to increase hydration. Assessment & Plan (04/08/2017 3:00 PM EDT): Maintain current course Gross nresjepup22/14/2017 Overview (05/04/2024): ==== 05/04/2024 ==== still some intermittent hematuria [...] cystoscopy/left ureteroscopy. She will also check with obstetrics/gynecology nurse to rule out any non urologic source for the blood ==== 09/07/2020 ==== no interval gross hematuria +++++++++ 01/30/2017 ALLSCRIPTS SUMMARY +++++++++++ At least 27 pack-year history of smoking. Smokes half pack a day. History of gross hematuria of 2012. Initial negative evaluation. Most recent evaluation February 2016 complete repeat workup was negative as well. ### negative evaluation Assessment & Plan (04/22/2023 11:38 AM EDT): We reviewed today than any abnormality of the urinary tract including cancer, medical renal disease, infection, calculi, bleeding the diathesis, idiopathic, benign familial, BPH, or congenital anomaly could account for hematuria, and hence the importance of evaluation. The patient understands that all studies ordered must be completed in order to fully evaluate the urinary system. The patient acknowledges this and agrees. Assessment & Plan (08/04/2018 4:05 PM EDT): Cytology March 2018 was negative Assessment & Plan (04/21/2018 4:02 PM EDT): Urine for cytology today Assessment & Plan (04/08/2017 2:59 PM EDT): Negative evaluation January 2017. Initial. Return to clinic 6 months. Assessment & Plan (01/08/2017 5:53 PM EDT): Recent recurrent gross hematuria with associated bilateral flank, side and lower abdominal/pelvic/urethral pain--12/25/2016 CT scan showed no ureteral stones or obstruction, no masses--urine culture was weakly positive at this time for 10- [phone] Klebsiella and patient is currently on Cipro--we discussed that any flank or back pain in light of the lack of obstruction on CT and the fact that she is on correct antibiotic should not be urologic--I advised the patient and her that I will discuss her case with Dr. Chery given the recurrent nature of her symptoms but in the interim we will send a repeat culture, fish and cytology--I also provided her wit samples of Uribel to see if this helps Urinary tract fepjdmxov76/14/2017 Overview (01/30/2017): ==== 01/30/2017 ==== weakly positive UTI sensitive to Cipro. Most recent culture negative. Assessment & Plan (08/04/2018 4:05 PM EDT): Urinalysis today was negative for infection or blood Assessment & Plan (01/08/2017 5:49 PM EDT): [id number] Klebsiella pneumoniae on culture 12/25/2016--patient was started on Cipro and has a few days remaining--symptoms persist despite correct antibiotic--we did send her urine for culture and sheunderstands we will only call her if it is persistently positive--if that is the case we will likely change up her antibiotic Kidney stone01/08/2017 Overview (01/04/2025): ==== 01/04/2025 ==== #### status post left [...] back pain--pt accepted. Agreed to short course [place] refill ([facility] reviewed--not suspicious), Urelle refill and [...] of ESWL x3 all in 2014 and 16. Has had reduction in stone burden. History [...] most content with observation. KUB 1 yr Assessment & Plan (01/04/2025 2:53 PM EDT): KUB 1 year Assessment & Plan (07/29/2024 1:11 PM EDT): Patient does have nonobstructing stone left side that can be better seen on most recent KUB image. Density similar to the stone on the right side that was successfully treated. She tolerated ESWL. Wishes to proceed. Will set her up for left ESWL. Assessment & Plan (05/04/2024 2:54 PM EDT): Hounsfield units as well as skin to stone distance appeared to be amenable for ESWL. She has had both ESWL as well as ureteroscopy in the past. We did discuss then repeat ESWL versus ureteroscopy given this fact of the stones appeared larger in size. She wishes to void ureteroscopy as well as stent. Will proceed with the ESWL. Will treat the side that is most apparent at the time of procedure. Assessment & Plan (07/31/2023 2:31 PM EDT): Hounsfield units as above. Stones. Calcified on the KUB portion of the CT. Will follow with KUB. Repeat study 9 months Assessment & Plan (03/05/2022 3:39 PM EDT): No interval renal colic Assessment & Plan (07/24/2021 3:33 PM EDT): Long discussion. Skin to stone distance is increased as well. Decreased efficacy. Hounsfield units higher. Stone burden is also pretty decent so although she has had some response to eswl it is less than optimal. Still runs a risk of having decently obstructing stone. We discussed the ureteroscopy detail. Stent placement holmium laser lithotripsy. Long-term consequences of retained stent as well.Wishes to proceed with procedure. Assessment & Plan (09/07/2020 3:51 PM EST): We discussed observation, ESWL, ureteroscopy. She chooses ESWL. She does understand the stone has some density to it in certainly ESWL may not be successful but that would not necessarily burning anybridges and we could always proceed with ureteroscopy should be need to do so. She is most comfortable with this plan. Denies any uncontrolled high blood pressure bleeding problems. She does take a aspirin daily. Wouldhave to hold that Assessment & Plan (08/04/2018 4:07 PM EDT): Continued observation Assessment & Plan (04/21/2018 4:06 PM EDT): Of note renal ultrasound after the CT scan which demonstrated distal stone demonstrated no hydronephrosis. She has been asymptomatic since as well. Assessment & Plan (11/18/2017 5:03 PM EST): Established problem, worsening. Calcified stone left side large enough cause colic. She had colic with a smaller right-sided stone that the preponderance of medical information is passed. Asymptomatic on the right side. We discussed not intervention with observation, ESWL, ureteroscopy. She choosesESWL. She states she can stop her ASA and has. No uncontrolled high blood pressure. No bleeding problems Assessment & Plan (04/08/2017 2:59 PM EDT): CT scan in January and most recent KUB demonstrates left-sided stone stable. About 3 mm few of them. Punctate calcification on the right. Plan: Serial follow-up. Assessment & Plan (01/30/2017 2:17 PM EDT): Patient to have KUB serially. Assessment & Plan (01/08/2017 5:47 PM EDT): ==== January 08, 2017==== CT stone protocol from 12/25/2016 shows bilateral intrarenal calculi withleft greater than right--no ureteral stones--no obstruction Encounters DateTypeDepartmentCare WddaTlfupadlisj56/12/2025 9:29 AM ESTHospital Encounter [facility] [address] [place] [address] Nicci Goetz PA-C Lumbar spondylosis; Disorder of fvkyof1209/08/20255831Icuhox91/23/6276Bqudwc93/22/2025 1:00 PM EDTOffice Visit [facility] [address] [place] [address] Nicci Goetz PA-C Lumbar spondylosis (Primary Dx); Disorder of kysqav2708/18/20253821Wcjylw09/19/2025 9:35 AM EDT - 07/16/2025 9:46 AM EDTSurgery [facility] [address] [place] [address] Hong Castro MD RADIOFREQUENCY ABLATION SPINAL Left L 4, 02/25 [69748 (CPT??)]07/16/2025 9:25 AM EDTAnesthesia Event [facility] [address] [place] [address] Jairo Burns, Paul Virk, GASKET NOTCHER-ENGINE WATCHMAN 07/16/2025 8:37 AM EDT - 07/16/2025 11:59 PM EDTHospital Encounter [facility] [address] [place] [address] Hong Castro MD Discharge Disposition: Home07/16/2025 8:25 AM EDT - 07/16/2025 8:36 AM EDT Hospital Encounter [facility] [address] [place] [address] Hong Castro MD Lumbar spondylosis Discharge Disposition: Home07/16/2025Results Follow-Up [facility] [address] [place] [address] Hong Castro MD Bedside Glucose *Place/Obtain serum glucose if >500 per glucometer.07/02/2025 11:16 AM EDTAnesthesia Event [facility] [address] [place] [address] Vlad Smith MD [place] GASKET NOTCHER-[facility] 07/02/2025 11:03 AM EDT - 07/02/2025 11:14 AM EDTSurgery [facility] [address] [place] [address] Hong Castro MD RADIOFREQUENCY ABLATION SPINAL right L 4/5, 5 [38731 (CPT??)]07/02/2025 10:33 AM EDT - 07/02/2025 11:59 PM EDTHospital Encounter [facility] [address] [place] [address] Hong Castro MD Discharge Disposition: Home07/02/2025 9:20 AM EDT - 07/02/2025 10:32 AM EDT Hospital Encounter [facility] [address] [place] [address] Hong Castro MD Lumbar spondylosis Discharge Disposition: Home07/02/2025Results Follow-Up [facility] [address] [place] [address] Hong Castro MD Bedside Glucose *Place/Obtain serum glucose if >500 per glucometer.06/24/2025 Refill [facility] [address] [place] [address] Candace Carmichael RN 06/09/2025 1:00 PM EDTOffice Visit [facility] [address] [place] [address] Nicci Goetz PA-C Lumbar spondylosis (Primary Dx)06/09/2025Travelfrom Last 3 Months Immunizations ImmunizationAdministration DatesNext DuePneumococcal Conjugate 20-valent 07/19/2024 Family History Medical HistoryRelationNameCommentsBreast cancerCousinEmphysemaFatherLung cancer FatherEmphysemaMotherRelationNameStatusCommentsCousinAliveFatherDeceasedMother Social History Tobacco UseTypesPacks/DayYears UsedDateSmoking Tobacco: NsgmhxYotolhajgm197 Started: 1987Passive Smoke Exposure: PastSmokeless Tobacco: Never Tobacco Cessation:Counseling Given: Not Answered Alcohol UseStandard Drinks/WeekCommentsNo0 (1 standard drink = 0.6 oz pure alcohol)[facility] UtilitiesAnswerDate RecordedIn the past 12 months has the [employer], gas, oil, or water [email or web address] threatened to shut off services in your home?No 07/08/2024HQ-2AnswerDate RecordedTotal Mxuuy607PRAPARE - Transportation AnswerDate RecordedIn the past 12 months, has lack [...] stay in as a part of a household?No 07/08/2024hildcareAnswerDate YwfrcygfYpamsgygiQzlydrc76/12/2019EmploymentAnswer Date MuzbwdleEzitxxesxmCakitzg64/12/2019Hunger ScreeningAnswerDate Recorded Within the past 12 months we worried whether our food would run out before we got money to buy more.Never True08/18/2025Within the past 12 months the food we bought just didn't last and we didn't have money to get more.Never True 08/18/2025Purpose - LifeAnswerDate RecordedPurpose and direction in lifeUnknown 1CommentsNoSex and Gender InformationValueDate RecordedSex Assigned at BirthNot on fileLegal EynVayfvb23/06/2015 11:30 AM EDTGender IdentityNot on fileSexual OrientationNot on file Last Filed Vital Signs Vital SignReadingTime TakenCommentsBlood Xvqhbvls022/801 1:36 PM EDT Jxmvy278508/18/2025 1:36 PM SPBZlgsmisljzm64.5 ??C (97.7 ??F)07/16/2025 9:11 AM EDTRespiratory Erup1255 1:36 PM EDTOxygen Dcyxzpfgtu64%07/16/2025 9:42 AM EDTInhaled Oxygen Concentration--Wdhatc609.1 kg (267 lb)08/18/2025 1:36 PM RIPTgdhqy084.9 cm (5' 1 )08/18/2025 1:36 PM EDTBody Mass Index50.451 1:36 PM EDT Plan of Treatment DateTypeDepartmentCare Team (Latest Contact Info)Dovbldrvpkw80/03/2025 1:00 PM ESTOffice Visit [facility] [address] [place] [address] Nicci Goetz PA-C [address] [place], [place] [id number] 01/12/2026 2:15 PM EDTOffice Visit [facility] [address] [place] [address] Abdulaziz Chery MD [address] [place], [place] [address] 04/15/2026 2:00 PM EDTOffice Visit [facility] [address] [place] [address] Micaela Edwards MD [address], [facility] [address] [place] [address] Health MaintenanceDue DateLast DoneCommentsAdult BMI Follow Up Plan1988 Zoster (Shingles) Vaccine (1 of 2)2020DTaP,Tdap and Td Vaccines (2 - Td or Tdap)/01/2013, 05/07/2000COVID-19 Vaccine ( season) , 02/14/2021, 01/20/2021Influenza Tfkutgu8306/28/2025 08/12/2023, 08/23/2015, 08/12/2014, Additional history existsDepression Niebhomog28/dult BMI Yqstyfnkc20/Tobacco Oposmbtar80/Pap Smear02/22/796465/, 02/17/2024 Jksqketfroh09/21/203312/, 10/17/2023 Goals GoalPatient Goal TypeAssociated ProblemsRecent ProgressPatient-Stated?Author home with self care Talita Nichols RN Note: Evaluation of progress towards goal: Patient plans to return home on oral antibiotics. Medical Devices ImplantedTypeAreaManufacturerDevice IdentifierShelf Expiration DateModel / Serial / LotMarker In Right BreastDescription:marker in right breast afer biopsy ExplantedTypeAreaManufacturerDevice IdentifierShelf Expiration DateModel / Serial / LotStent Uret 6fr 24cm Pgtl Crv Tpr Tip Bldr Mrk Lp Lg Inr Lum Rpl [id number] [facility] [id number] - [id number] - [id number] Implanted:Qty: 1 on 09/18/2021 by Abdulaziz Chery MD at [facility] Explanted:Qty: 1 on 10/09/2021 [facility]: UreterBOSTON SCIENTIFIC [id number] 03/13/[id number] / [id number] / [id number] Procedures Procedure NamePriorityDate/TimeAssociated DiagnosisCommentsFL FLUOROSCOPY UP TO 1 UOXEYrmorlc51/19/2025 9:33 AM EDT Lumbar spondylosis IA DSTR NROLYTC AGNT PARVERTEB FCT SNGL LMBR/UYWWTR9407/16/2025 9:25 AM EDT Lumbar spondylosis Special Needs Latex Allergy BMI 49.69 Diabetic BEDSIDE JYVQUXSXtbugpg49/19/2025 9:06 AM EDT FL FLUOROSCOPY UP TO 1 OLJFMynksqj70/05/2025 11:25 AM EDT Lumbar spondylosis IA DSTR NROLYTC AGNT PARVERTEB FCT SNGL LMBR/GMIYFU6507/02/2025 11:15 AM EDT Lumbar spondylosis Special Needs Latex Allergy BMI 49.69 Diabetic BEDSIDE DARCKMOMrqefte40/05/2025 10:40 AM EDT PROVATION PDVKPEEULOGMfvdxoq99/21/2023 8:43 AM EST from Last 3 Months or Most Recently Relevant to Health Maintenance Results * Fluoroscopy less than one hour (07/16/2025 9:33 AM EDT) Only the most recent of2 resultswithin the time period is included. Specimen (Source)Anatomical Location / LateralityCollection Method / Volume Collection TimeReceived Time Narrative SYSTEMGENERATED, DOCUMENTATION - 07/16/2025 9:33 AM EDT No Reading Required. This procedure does not require a formal dictation. Non-Radiologist provider performed procedures can be reviewed under Post-Op, Procedure or Progress notes. For full report details, please reach out to your physician. ??Effective 03/14/2021 this image will be visible to you in MyChart. Authorizing ProviderResult TypeResult StatusHong Castro MDIMG FLUOROSCOPY ORDERABLESFinal Result * (ABNORMAL) Bedside Glucose *Place/Obtain serum glucose if >500 per glucometer. (07/16/2025 9:06 AM EDT) Only the most recent of2 resultswithin the time period is included. ComponentValueRef RangeTest MethodAnalysis TimePerformed AtPathologist Signature Bedside Glucose (POC)129(H)65 - 99 mg/dL07/16/2025 9:12 AM EDTPROMEDMODOC MEDICAL CENTERpecimen (Source)Anatomical Location / LateralityCollection Method / VolumeCollection TimeReceived Timearterial/fyvepqoox66/19/2025 9:06 AM EDT07/16/2025 9:12 AM EDT Narrative Authorizing ProviderResult TypeResult Geovani Castro MDPOINT OF CARE TEST ORDERABLESFinal ResultPerforming OrganizationAddressCity/State/ZIP CodePhone Number [facility] [address] [place] [address], * Colonoscopy Report (10/17/2023 8:43 AM EST)Specimen (Source)Anatomical Location / LateralityCollection Method / VolumeCollection TimeReceived Time Narrative SYSTEMGENERATED, DOCUMENTATION - 10/17/2023 8:43 AM EST This order has been auto-finalized for image and report archival in PACs. *For full report details, please reach out to your physician. ??This image is visible to you in MyChart.* Authorizing ProviderResult TypeResult StatusMichael E Grillis DOIMG OR IMG ORDERABLESFinal Result from Last 3 Months or Most Recently Relevant to Health [place] [address] Advance Directives * Full Code (Latest Code Status on File) Date ActivatedDate InactivatedComments07/07/2024 8:59 PM07/19/2024 2:30 PM * Full Code Date ActivatedDate InactivatedComments11/11/2023 9:16 AM11/14/2023 9:31 PM Care Teams Team MemberRelationshipSpecialtyStart DateEnd Date Diana Michele, SHERIE-PET CARE TECHNICIAN [address] [place], [place] [address] [address] PCP - GeneralNurse Practitioner03/16/25
--- OUTSIDE RECORDS SUMMARY | 2025-09-08 11:14 | XMS_ITS | Clinical Summary ---
Author Organization [facility] Healthcare Address [address] [place] [address] Care Team Providers Care Shift Manager Name Role Phone Unavailable Primary Care Provider Unavailabl e Allergies Active AllergyReactionsCriticalityNoted RtklWjadyzzpJxzgayjfuBedttza87/20/2024 GabapentinAnaphylaxis,ZshjjvmlJrsu84/25/2021 Other Reaction(s): Unknown Facial, legs, feet swelling HyfzyqdzneCjkfIkj32/01/5499QguvsAelazHbb71/03/2018 Other Reaction(s): Unknown Other02/17/2024 Other Reaction(s): Unknown Medications MedicationSigDispense QuantityRefillsLast FilledStart DateEnd DateStatus DULoxetine (Cymbalta) [address] capsule Take 1 capsule by mouth DailyActive calcium citrate 600 mg and vitamin D3 (Citrical & Minerals + Vit D) 600-200 MG- UNIT tablet 1 (one) time each day at the same timeActive albuterol HFA (Ventolin HFA) 90 mcg/act inhaler Active acetaminophen (Tylenol 8 Hour) 650 MG ER tablet Take 650 mg by mouth every 8 (eight) hours if neededActive aspirin 325 MG tablet 1 (one) time each day at the same timeActive Calcium Carb-Cholecalciferol 600-10 MG-MCG tablet Take 1 tablet by mouth DailyActive doxycycline (Vibramycin) 100 MG capsule Take 100 mg by mouth in the morning and 100 mg before bedtime.09/05/2023ctive fluticasone (Flonase) 50 MCG/ACT nasal spray 1 (one) time each day at the same timeActive loratadine (Claritin) 10 MG tablet Take 1 tablet by mouth DailyActive montelukast (Singulair) 10 MG tablet Take 1 tablet by mouth at bedtimeActive Multiple Vitamin (Multi Vitamin) tablet 1 (one) time each day at the same timeActive omeprazole (PriLOSEC) [address] capsule Take 1 capsule by mouth DailyActive ondansetron (Zofran) 4 MG tablet Take 1 tablet by mouth in the morning and 1 tablet before bedtime.Active metFORMIN XR (Glucophage-XR) 500 MG 24 hr tablet Take 500 mg by mouth in the evening. Take with meals5Active omega-3 1000 MG capsule capsule Take 1,000 mg by mouth DailyActive Fluticasone-Salmeterol 100-50 MCG/ACT aerosol powder Inhale 1 each if needed (wheezing)5Active buPROPion XL (Wellbutrin XL) 150 MG 24 hr tablet Indications:Mood changesTake 1 tablet (150 mg) by mouth Daily Do not crush, chew, or split. 30 tablet 110/6Active Encounters DateTypeDepartmentCare OyksSnlurzticme01/07/2025[place] [address] Calvin Quintanilla, DO 08/02/2025linisync Result Encounter [facility] External Department Unsolicited Calvin Quintanilla, DO 07/13/2025[place] [address] Calvin Quintanilla, DO 06/23/2025[place] [address] Calvin Quintanilla, DO 06/22/2025[place] [address] Calvin Quintanilla, DO 06/10/2025 2:40 PM EDTClinical [place] [address] Family history of breast ecbjrv5706/10/2025[place] [phone] Cavlin Quintanilla DO from Last 3 Months Family History Medical HistoryRelationNameCommentsBreast cancerOtherBreast cancerSisterRelation NameStatusCommentsOtherSisterAlive Social History Tobacco UseTypesPacks/DayYears UsedDateSmoking Tobacco: Never Assessed CommentsNoSex and Gender InformationValueDate RecordedSex Assigned at BirthNot on fileLegal WtwUyxfzj81/15/2023 10:05 PM EDTGender IdentityNot on fileSexual OrientationNot on file Last Filed Vital Signs Vital SignReadingTime TakenCommentsBlood Pjrikmhl227/8008 2:58 PM EDT Pulse--Temperature--Respiratory Rate--Oxygen Saturation--Inhaled Oxygen Concentration--Ahxfvt028 kg (265 lb)06/10/2025 2:58 PM XDBFblbaz255.9 cm (5' 1 ) 06/10/2025 2:58 PM EDTBody Mass Index50.0706/10/2025 2:58 PM EDT Plan of Treatment DateTypeDepartmentCare Team (Latest Contact Info)Puxnmlyuswp19/05/2026 2:00 PM EDTOffice Visit [facility] [address] [place] [phone] Calvin Quintanilla DO [address] [place], [place] [id number] Health MaintenanceDue DateLast DoneCommentsCT Kgmsmzxjmgdd1970FIT-DNA 1970FIT1970FOBT1970 7218Khpeiehpzzvkd1970COVID-19 Vaccine ( season), 02/14/2021, 01/20/2021Influenza Vaccine (#1), 08/23/2015, 08/12/2014, Additional history exists Shknepqzm78, 07/30/2024, 07/29/2023ap Smear02/23/2028 02/22/2025, 4Cervical Cancer Cqvfpadww07/22/2029HPV/Ctuhlf7202/16/2029 Kflqwjuwdaj95, 3Colorectal Cancer Abkidwmbx32/21/2033 Pneumococcal Vaccine: Pediatrics (0 to 5 Years) and At-Risk Patients (6 to 64 Years)Aged OutNo longer eligible based on patient's age to complete this topic Procedures Procedure NamePriorityDate/TimeAssociated DiagnosisCommentsMM TOMOSYNTHESIS SCREENING BI08/02/2025 5:35 PM EDT PAP JHHKMKxzveey40/28/2025 12:00 AM EDTfrom Last 3 Months or Most Recently Relevant to Health Maintenance Results * MM TOMOSYNTHESIS SCREENING BI (08/02/2025 5:35 PM EDT)Anatomical Region LateralityModalityOtherSpecimen (Source)Anatomical Location / Laterality Collection Method / VolumeCollection TimeReceived Time08/02/2025 5:35 PM EDT Narrative 08/02/2025 5:36 PM EDT [facility] ?[address] ? [place] [address] ? Mammography Report ? Signed ? Patient: FARHAN NORTONNOE Lofton ?MR#: [id number] ?? : 1970 ?Acct:[id number] ?? Age/Sex: 54 / F ?ADM Date: 08/02/25 ?? Loc: MAMMO ? Attending Dr: Calvin Quintanilla D.O. ? Ordering Physician: Calvin Quintanilla D.O. ?Results: ? Date of Service: 08/02/25 ?Follow Up: ? Procedure(s): MM tomosynthesis screening BI ?? Accession Number(s): [id number] ? cc: Calvin Quintanilla D.O.; Diana Michele BRIGHT CUTTER ? Patient Name: ? DONNA NORTON ? MR#: [id number] ? : 1970 ? Exam Date: 08/02/2025 ?? Ordering Doctor: DR CALVIN QUINTANILLA . ? RADIOLOGY REPORT ? PROCEDURE: ? MM TOMOSYNTHESIS SCREENING BI ? COMPARISON: ? MM TOMOSYNTHESIS SCREENING BI, 07/30/2024. ??MM TOMOSYNTHESIS ?? SCREENING BI, 07/29/2023. ??MG MAMM SCREEN 3D MICHAEL CAD, 07/27/2022. ??MG MAMM MICHAEL ?? SCRN W CAD DIG, 03/12/2013. ? INDICATIONS: ? Screening ? Calculator Name ? NCI Breast Cancer Risk Assessment Tool ?? 5 Year Breast Cancer Risk ? 3.60% ?? Lifetime Breast Cancer Risk ? 24.00% ?? Personal Breast Cancer ?No ?? Personal Ovarian Cancer ? No ?? Treatments ? None ?? Family Cancers ? Sister with breast cancer at age 51; Father with lung ?? cancer at age 55; Aunt-paternal with lung cancer at age 60; Cousin-paternal ?? with breast cancer at age 32. ? LOCATION: ? [facility] ? BREAST COMPOSITION: ? The breasts are heterogeneously dense, which may ?? obscure small masses. ? FINDINGS: ? RIGHT BREAST: ??No significant suspicious finding. ??Benign-appearing lymph ?? nodes are noted . ??similar focal asymmetries are present. ??Benign-appearing ?? calcifications are present. ? LEFT BREAST: ??No significant suspicious finding. ??Benign-appearing lymph nodes ?? are noted . ??similar focal asymmetries are present. ??Benign-appearing ?? calcifications are present. ? DIAGNOSTIC CATEGORY 2--BENIGN FINDING. NO CHANGE FROM COMPARISON. ? RECOMMENDATIONS: ? ROUTINE MAMMOGRAM AND CLINICAL EVALUATION IN 12 MONTHS. ? Dictated by: Lamin Hedrick MD on 08/02/2025 at 17:33 ? Approved by: Lamin Hedrick MD on 08/02/2025 at 17:35 ? Dictated By: ?Lamin Hedrick M.D. ? Signed By: ?08/02/25 1736 ? DD/ 1735 ? TD/TT: ? Shelver: Procedure Note Radiology, Radiologist, MD - 08/02/2025 [place] [address] Mammography Report Signed Patient: DONNA NORTON SMR#: [id number] : 1970Acct:[id number] Age/Sex: 54 / FADM Date: 08/02/25 Loc: MAMMO Attending Dr: Calvin Quintanilla D.O. Ordering Physician: Calvin Quintanilla D.O.Results: Date of Service: 08/02/25Follow Up: Procedure(s): MM tomosynthesis screening BI Accession Number(s): [id number] cc: Calvin Quintanilla D.O.; Diana Michele NP Patient Name: DONNA NORTON MR#: [id number] : 1970 Exam Date: 08/02/2025 Ordering Doctor: DR CALVIN QUINTANILLA . RADIOLOGY REPORT PROCEDURE: MM TOMOSYNTHESIS SCREENING BI COMPARISON: MM TOMOSYNTHESIS SCREENING BI, 07/30/2024. MMTOMOSYNTHESIS SCREENING BI, 07/29/2023. MG MAMM SCREEN 3D MICHAEL CAD, 07/27/2022. MG MAMMBIL SCRN W CAD DIG, 03/12/2013. INDICATIONS: Screening Calculator Name NCI Breast Cancer Risk Assessment Tool 5 Year Breast Cancer Risk 3.60% Lifetime Breast Cancer Risk 24.00% Personal Breast Cancer No Personal Ovarian Cancer No Treatments None Family Cancers Sister with breast cancer at age 51; Father with lung cancer at age 55; Aunt-paternal with lung cancer at age 60;Cousin-paternal with breast cancer at age 32. LOCATION: [facility] BREAST COMPOSITION: The breasts are heterogeneously dense, which may obscure small masses. FINDINGS: RIGHT BREAST: No significant suspicious finding. Benign-appearing lymph nodes are noted . similar focal asymmetries are present.Benign-appearing calcifications are present. LEFT BREAST: No significant suspicious finding. Benign-appearing lymphnodes are noted . similar focal asymmetries are present. Benign-appearing calcifications are present. DIAGNOSTIC CATEGORY 2--BENIGN FINDING. NO CHANGE FROM COMPARISON. RECOMMENDATIONS: ROUTINE MAMMOGRAM AND CLINICAL EVALUATION IN 12 MONTHS. Dictated by: Lamin Hedrick MD on 08/02/2025 at 17:33 Approved by: Lamin Hedrick MD on 08/02/2025 at 17:35 Dictated By: Lamin Hedrick M.D. Signed By:08/02/251735 DD/ 34 TD/TT: Shelver: Authorizing ProviderResult TypeResult StatusCorey Socorro DOCLINISYNC IMAGINGFinal Result * Pap Smear (02/22/2025 12:00 AM EDT)Specimen (Source)Anatomical Location / LateralityCollection Method / VolumeCollection TimeReceived TimeSwabCervical swab / Unknown Narrative Authorizing ProviderResult TypeResult StatusFazio Nurse Noms [facility] ObLAB CYTOLOGY ORDERABLESFinal ResultPerforming OrganizationAddressCity/State/ZIP CodePhone Number EXTERNAL LAB from Last 3 Months or Most Recently Relevant to Health Maintenance Insurance * Guarantor: Donna Norton TypeRelation to PatientDate of BirthPhone Billing AddressPersonal/MroobyOpke[birth year] [facility] [place] [place] [address]
--- OUTSIDE RECORDS SUMMARY | 2025-09-08 11:14 | XMS_ITS | Encounter Summary ---
Author Organization [facility] Address [address] [place] [address] Care Team Providers Care Plastics Scientist Name Role Phone Unavailable Primary Care Provider Unavailabl e Encounter Details DateTypeDepartmentCare Team (Latest Contact Info)Bbnytwfiuek37/07/2025Telephone [facility] [address] [address] Calvin Quintanilla DO [address] [place], [facility] Social History Tobacco UseTypesPacks/DayYears UsedDateSmoking Tobacco: Never Assessed CommentsNoSex and Gender InformationValueDate RecordedSex Assigned at BirthNot on fileLegal XkbDoolgt48/15/2023 10:05 PM EDTGender IdentityNot on fileSexual OrientationNot on filedocumented as of this encounter Miscellaneous Notes * Telephone Encounter - Arlene Walker MA - 09/06/2025 10:51 AM EST Pt called in stating she need her calcium and creatinine labs drawn before she could schedule her Prolia injections. Pt requesting orders be sent to [facility]. Orders faxed to [facility] * Telephone Encounter - Arlene Walker MA - 09/06/2025 10:41 AM EST Oh, yes, this is Nikole Norton. I was calling I needed to ask a question. If you could please give me a call back at [phone]. I appreciate it. Thanks, byandra. [facility] for pt to return call * Telephone Encounter - Faith Myers LPN - 09/03/2025 9:49 AM EST Yes, this is Nikole Norton. If you could please give me a call back, I would appreciate it. [phone] I have a question for you. Thanks, byandra. Patient call was returned and advised to return all to the office. documented in this encounter Plan of Treatment DateTypeDepartmentCare Team (Latest Contact Info)Yzeiozoqagu72/05/2026 2:00 PM EDTOffice Visit [facility] WAGNERGYM[place] [address] [phone] Calvin Quintanilla DO [address] [place] [address] NameTypePriorityAssociated DiagnosesOrder ScheduleCreatinineLabRoutine Osteoporosis, post-menopausal Expected: 09/06/2025 (Approximate), Expires: 09/06/2026alciumLabRoutine Osteoporosis, post-menopausal Expected: 09/06/2025 (Approximate), Expires: 09/06/2026documented as of this encounter Visit Diagnoses Diagnosis Osteoporosis, post-menopausal Senile osteoporosis documented in this encounter
--- OUTSIDE RECORDS SUMMARY | 2025-09-08 11:30 | XMS_ITS | CCD ---
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, Marcus Primary Care Provider [phone] Perry FILLER FEEDER[employer]IED HEALTH TEACHER, Marcus Primary Care Provider [phone] BO DAWSON Attending Unavailable ANGELICA FLORES Referring Unavailable ANGELICA FLORES Primary Care Unavailable SHAKIRA MOSES Referring Unavailable PERRY, MARCUS Primary Care Unavailable FRANK BAPTISTE Attending Unavailable PERRY, MARCUS Referring Unavailable PERRY, MARCUS Primary Care Unavailable BO DAWSON Attending Unavailable PERRY, MARCUS Referring Unavailable PERRY, MARCUS Primary Care Unavailable BO DAWSON Attending Unavailable PERRY, MARCUS Referring Unavailable PERRY, MARCUS Primary Care Unavailable SHAKIRA MOSES Attending Unavailable PERRY, MARCUS Referring Unavailable PERRY, MARCUS Primary Care Unavailable SHAKIRA MOSES Attending Unavailable PERRY, MARCUS Referring Unavailable PERRY, MARCUS Primary Care Unavailable SHAKIRA MOSES Referring Unavailable PERRY, MARCUS Primary Care Unavailable SHAKIRA MOSES Attending Unavailable ANGELICA FLORES Referring Unavailable PERRY, MARCUS Primary Care Unavailable Myerholtz SHERIE-Diana LAL Primary Care Pro vider ABBYESICA, JIHAD T Attending Unavailable ANGELICA FLORES Referring Unavailable [...] Primary Care Unavailable IZZY ELIZONDO Attending Unavailable ABBAS, JIHAD T Attending Unavailable PERRY, MARCUS Referring Unavailable DIANA MICHELE Primary Care Unavailab CALVIN Samaniego Attending Unavailable CAVLIN QUINTANILLA Attending Unavailable PERRY, MARCUS Referring Unavailable PERRY, MARCUS Primary Care Unavailable PERRY, MARCUS Referring Unavailable PERRY, MARCUS Primary Care Unavailable BO DAWSON G. Referring Unavailable PERRY, MARCUS Primary Care Unavailable BO DAWSON G. Referring Unavailable PERRY, MARCUS Primary Care Unavailable VERTOBI CUEVAN N Attending Unavailable PERRY, MARCUS Referring Unavailable PERRY, MARCUS Primary Care Unavailable DAWSON, BO G. Admitting Unavailable DAWSON, BO G. Attending Unavailable PERRY, MARCUS Primary Care Unavailable JOHANNE ROYAL Attending Unavailable PERRY, MARCUS Primary Care Unavailable VERHOFF, ROCAEL N Attending Unavailable PERRY, MARCUS Referring Unavailable PERRY, MARCUS Primary Care Unavailable CASTRO, HONG E Admitting Unavailable CASTRO, HONG E Attending Unavailable PERRY, MARCUS Referring Unavailable PERRY, MARCUS Primary Care Unavailable CASTRO, HONG E Attending Unavailable CASTRO, HONG E Referring Unavailable PERRY, MARCUS Primary Care Unavailable VERHOFF, ROCAEL N Attending Unavailable PERRY, MARCUS Referring Unavailable PERRY, MARCUS Primary Care Unavailable DAWSON, BO G Attending Unavailable DAWSON, BO G Referring Unavailable PERRY, MARCUS Primary Care Unavailable VERHOFF, ROCAEL N Attending Unavailable PERRY, MARCUS Referring Unavailable PERRY, MARCUS Primary Care Unavailable KENIA FLAHERTYA Referring Unavailable MYERHOLTZ, DIANA K Primary Care Unavailab le KRYSTINA, MYRON Referring Unavailable MYERHOLTZ, DIANA K Primary Care Unavailab michelle VERHAMMAD, ROCAEL [place] Attending Unavailable MARCUS AMADOR Referring Unavailable MYERHOLTZ, DIANA K Primary Care Unavailab le CASTRO, HONG E Attending Unavailable CASTRO, HONG E Referring Unavailable MYERHOLTZ, DIANA K Primary Care Unavailab le CASTRO, HONG E Admitting Unavailable CASTRO, HONG E Attending Unavailable MARCUS AMADOR Referring Unavailable MYERHOLTZ, DIANA K Primary Care Unavailab le CASTRO, HONG E Admitting Unavailable CASTRO, HONG E Attending Unavailable MARCUS AMADOR Referring Unavailable MYERHOLTZ, DIANA K Primary Care Unavailab le CASTRO, HONG E Attending Unavailable CASTRO, HONG E Referring Unavailable MYERHOLTZ, DIANA K Primary Care Unavailab le VERHOFF, ROCAEL [place] Attending Unavailable MYERHOLTZ, DIANA K Referring Unavailab le MYERHOLTZ, DIANA K Primary Care Unavailab le BROWN, CHRISTOPHER Attending Unavailable BROWN, CHRISTOPHER Attending Unavailable BROWN, CHRISTOPHER Referring Unavailable BROWN, CHRISTOPHER Attending Unavailable BROWN, CHRISTOPHER Attending Unavailable BROWN, CHRISTOPHER Attending Unavailable BROWN, CHRISTOPHER Attending Unavailable BROWN, CHRISTOPHER Attending Unavailable BROWN, CHRISTOPHER Attending Unavailable Allergies Allergy ClassificationReported Allergen(s)Allergy TypeDate of OnsetReaction(s) Facility (20 sources)Latex; Translations: [Latex]Propensity to adverse reactions (disorder)70-61-1784YksbdCzucvmod [facility] Repository (20 sources)gabapentin; Translations: [GABAPENTIN]Drug Hmztbsg29-17-3675 [facility]axis, [facility] Work Phone: (20 sources)Gentamicin; Translations: [GENTAMICIN]Drug Sartzfp38-31-4750HzliYEPA [facility] (12 sources)OtherPropensity to adverse ynilzwutq21-11-3307DKTP [facility] (13 sources)Capsaicin; Translations: [CAPSAICIN]Drug Wjrnquf06-86-6121Bsiecdk [facility] (14 sources)CapsaicinDrug Feadlqa50-26-4315XxkCqqplx [facility] Work Phone: Medications Current Medications MedicationDrug Class(es)DatesSig (Normalized)Sig (Original)8 hr acetaminophen 650 mg extended release oral tablet (20 sources)take 1 tablet by mouth every eight hours as needed for pain acetaminophen (TYLENOL ARTHRITIS) 650 mg 8 hr tablet Take 1 tablet (650 mg total) by mouth every 8 (eight) hours as needed for pain. [id number] 200 actuat albuterol 0.09 mg/actuat metered dose inhaler (20 sources)beta2-Adrenergic AgonistStart: 83-24-3891imvv 2 puff(s) by inhalation every six hours as needed for wheezingalbuterol (PROVENTIL HFA;VENTOLIN HFA) 90 mcg/actuation inhaler Indications: Bronchitis Inhale 2 puf fs every 6 (six) hours as needed for wheezing. 18 g 11/16/2022 Activealbuterol HFA (Ventolin HFA) 90 mcg/act inhaler Activeaspirin 325 mg delayed release oral tablet (20 sources)Platelet Aggregation Inhibitor, Nonsteroidal Anti-inflammatory Drug take 1 tablet by mouth in the morningaspirin 325 mg EC tablet Take 1 tablet (325 mg total) by mouth in the morning. Circulation, high risk for blood clots. Activeaspirin 325 MG tablet 1 (one) time each day at the same time Bzdaxl08 hr buPROPion hydrochloride 150 mg extended release oral tablet (6 sources)AminoketoneStart: 04-02-2025 End: 27-60-4016vkkr 1 tablet by mouth once dailybuPROPion XL (Wellbutrin XL) 150 MG 24 hr tablet Indications: Mood changes Take 1 tablet (150 mg) by mouth Daily Do not crush, chew, or split. 30 tablet 11 04/02/2025 03/28/2026 Activetake 1 tablet by mouth every twenty-four hours at bedtimebuPROPion XL (WELLBUTRIN XL) 150 mg 24 hr tablet Take 1 tablet (150 mg total) by mouth before bedtime. Active calcium carbonate 1500 mg / cholecalciferol 0.01 mg oral tablet (20 sources)Vitamin DStart: 43-09-7359jgdi 1 tablet by mouth once daily in the morningCALCIUM 600 + D,3, 600 mg(1,500mg) -400 unit per tablet Indications: prevention of vitamin D deficiency Take 1 tablet by mouth in the morning. Indications: prevention of vitamin D deficiency. 3 07/23/2019 Activetake 1 tablet by mouth once dailyCalcium Carb-Cholecalciferol 600-10 MG-MCG tablet Take 1 tablet by mouth Daily Activecalcium citrate 600 mg and vitamin D3 (Citrical & Minerals + Vit D) 600-200 MG-UNIT tablet 1 (one) time each day at the same time Activecalcium citrate 600 mg and vitamin D3 (Citrical & Minerals + Vit D) 600- 200 MG-UNIT tablet (4 sources)calcium citrate 600 mg and vitamin D3 (Citrical & Minerals + Vit D) 600-200 MG-UNIT tablet 1 (one) time each day at the same time Activecitalopram 20 mg oral tablet (10 sources)Serotonin Reuptake InhibitorStart: 02-22-2025 End: 71-76-8791hujk 1 tablet by mouth once dailycitalopram (CeleXA) 20 MG tablet Indications: Hot flashes due to menopause Take 1 tablet (20 mg) bymouth Daily 30 tablet 11 02/22/2025 02/22/2026 Active1 ml denosumab 60 mg/ml prefilled syringe (12 sources)RANK Ligand Inhibitorinject 1 mL by subcutaneous injection once denosumab (PROLIA) 60 mg/mL syringe injection Inject 1 mL (60 mg total) under the skin once. Activedocosahexaenoic acid 120 mg / eicosapentaenoic acid 180 mg oral capsule (5 sources)take 1 capsule by mouth once dailyomega-3 1000 MG capsule capsule Take 1,000 mg by mouth Daily Activedoxycycline hyclate 100 mg oral capsule (12 sources)Tetracycline-class DrugStart: 04-40-8448rhww 1 capsule by mouth in the morningdoxycycline (Vibramycin) 100 MG capsule Take 100 mg by mouth in the morning and 100 mg before bedtime. 09/05/2023 ActiveDULoxetine 60 mg delayed release oral capsule (20 sources)Serotonin and Norepinephrine Reuptake InhibitorStart: 09-16-2024 End: 09-66-7411vvyu 1 capsule by mouth in the morningDULoxetine (CYMBALTA) 60 mg capsule Indications: neuropathic pain Take 1 capsule (60 mg total) by mouth in the morning. Indications: neuropathic pain. 30 capsule 3 06/24/2025 Activetake 1 capsule by mouth once dailyDULoxetine (Cymbalta) [address] capsule Take 1 capsule by mouth Daily Activefluticasone propionate 0.05 mg/actuat metered dose nasal spray (20 sources)CorticosteroidStart: 71-44-0080pvms 1 spray(s) nasal route in the morningfluticasone propionate (FLONASE ALLERGY RELIEF) 50 mcg/actuation nasal spray Administer 1 spray into each nostril in the morning. 10/26/2024 Active fluticasone (Flonase) 50 MCG/ACT nasal spray 1 (one) time each day at the same time Ugukxr96 actuat fluticasone propionate 0.1 mg/actuat / salmeterol 0.05 mg/actuat dry powder inhaler (5 sources)Corticosteroid, beta2-Adrenergic AgonistStart: 46-43-9340Dvhagsalyar- Salmeterol 100-50 MCG/ACT aerosol powder Inhale 1 each if needed (wheezing) 12/27/2024 Ygshzh50 actuat formoterol fumarate 0.005 mg/actuat / mometasone furoate 0.1 mg/actuat metered dose inhaler (20 sources)Corticosteroid, beta2-Adrenergic Agonisttake 2 puff(s) by inhalation in the morningmometasone-formoterol (DULERA) 100-5 mcg/actuation inhaler Indications: maintenance therapy for asthma Inhale 2 puffs in the morning and 2 puffs before bedtime. Indications: controller medication forasthma. Active End: 45-94-1033xnajowbghk-formoterol (Dulera) 100-5 MCG/ACT inhaler 02/22/2025 Discontinuedloratadine 10 mg oral tablet (20 sources)take 1 tablet by mouth once dailyloratadine (CLARITIN) 10 mg tablet Indications: allergic rhinitis Take 1 tablet (10 mg total) by mouth nightly Indications: inflammation of the nose due to an allergy. Vomujp45 hr metFORMIN hydrochloride 500 mg extended release oral tablet (19 sources)BiguanideStart: 05-66-5815wowr 1 tablet by mouth every twenty-four hours at mealtimemetFORMIN XR (Glucophage-XR) 500 MG 24 hr tablet Take 500 mg by mouth in the evening. Take with meals 02/03/2025 ActiveStart: 59-89-2940jega 1 tablet by mouth once daily at breakfastmetFORMIN XR (GLUCOPHAGE XR) 500 mg 24 hr tablet Take 1 tablet (500 mg total) by mouth daily with breakfast. 30 tablet 11 07/18/2024 Activemontelukast 10 mg oral tablet (20 sources)Leukotriene Receptor Antagonisttake 1 tablet by mouth once daily montelukast (SINGULAIR) 10 mg tablet Indications: maintenance therapy for asthma Take 1 tablet (10 mg total) by mouth nightly Indications: controller medication for asthma. ActiveMultiple Vitamin (Multi Vitamin) tablet (12 sources)Multiple Vitamin (Multi Vitamin) tablet 1 (one) time each day at the same time Eamdojlojtivaz-wdxe-LD-calcium &mins (THERAGRAN-M) 9 mg iron-400 mcg tablet (5 sources)cjuzduzp-tied-WW-calcium &mins (THERAGRAN-M) 9 mg iron-400 mcg tablet Take 1 tablet by mouth inthe morning. Activeomega 0-fdx-urz-fish oil (Fish OiL) 300-1,000 mg capsule (14 sources)omega 9-tsr-trn-fish oil (Fish OiL) 300-1,000 mg capsule Take by mouth. Activeomeprazole 40 mg delayed release oral capsule (20 sources)Proton Pump InhibitorStart: 92-60-2065hgtf 1 capsule by mouth in the morningomeprazole (PriLOSEC) 40 mg capsule Indications: gastroesophageal reflux disease Take 1 capsule (40mg total) by mouth in the morning. Indications: gastroesophageal reflux disease. 07/19/2020 Activeondansetron 4 mg oral tablet (20 sources)Serotonin-3 Receptor AntagonistStart: 27-72-2473oxag 1 tablet by mouth every six hours as needed for nausea and vomitingondansetron (ZOFRAN) 4 mg tablet Take 1 tablet (4 mg total) by mouth every 6 (six) hours as needed for nausea or vomiting for up to 20 doses. 20 tablet 03/18/2018 Active Completed/Discontinued Medications MedicationDrug Class(es)DatesSig (Normalized)Sig (Original)cefadroxil 500 mg oral capsule (7 sources)Cephalosporin Antibacterial End: 21-91-9198eefhqdrbbr (Duricef) 500 MG capsule 02/22/2025 Discontinued lidocaine 0.05 mg/mg medicated patch (12 sources)Antiarrhythmic, Amide Local AnestheticStart: 09-16-2024 End: 69-90-0491jxigr 1 dose transdermal route once daily, then apply 1 dose transdermal route every twelve hourslidocaine (LIDODERM) 5 % Indications: Lumbar spondylosis , Disorder of sacrum Place 1 patch on the skin daily. Remove & Discard patch within 12 hours or as directed by MD Flores patch 11/04/202406/09 Discontinued (Therapy completed)therapeutic multivitamin (THERAGRAN) tablet (11 sources) End: 00-91-9444yzhk 1 tablet by mouth in the morningtherapeutic multivitamin (THERAGRAN) tablet Indications: vitamin deficiency prevention Take 1 tablet by mouth in the morning. Indications: treatment to prevent vitamin deficiency. 06/09/2025 Discontinued (Duplicate Listing)take 1 tablet by mouth in the morning therapeutic multivitamin (THERAGRAN) tablet Indications: vitamin deficiency prevention Take 1 tablet by mouth in the morning. Indications: treatment to prevent vitamin deficiency. Active Problems Active Problems Problem ClassificationProblemDateDocumented DateEpisodic/Chronic Administrative/social admission (2 sources)Patient encounter status; Translations: [Person consulting for explanation of examination or test findings]71-56-7605WjnknknfSutilen obstructive pulmonary disease and bronchiectasis (15 sources)Chronic obstructive lung disease; Translations: [Chronic obstructive pulmonary disease, unspecified]Onset: 721262-02-9779BhntvcxKokoboo ulcer of skin (2 sources)Non-pressure chronic ulcer of right calf with fat layer exposed; Translations: [Non-pressure chronic ulcer of right calf with fat layer exposed] Onset: 82-68-0812RdavwwvAlwlkkoeidccm symptoms and ill-defined conditions (20 sources)Incontinence; Translations: [Mixed incontinence]Onset: 11-22-2021 78-04-0726UpyzcmhIyeeufniak disorders (2 sources)Menopausal flushing; Translations: [Menopausal and female climacteric states]08-30-5088LueuysqNqnkkogifaczyr (17 sources)Arthritis of left knee; Translations: [Unilateral primary osteoarthritis, left knee]Onset: 535271-15-0025VrmrpttTkdwxyegmobe (2 sources)Postmenopausal osteoporosis; Translations: [Age-related osteoporosis without current pathological fracture]24-20-7961HtwmduxYgtnn hereditary and degenerative nervous system conditions (1 source)Intention tremor; Translations: [Other specified forms of tremor] 39-30-9013NklnmytBswnr hereditary and degenerative nervous system conditions (1 source)Other specified forms of tremor; Translations: [Other specified forms of tremor]Onset: 03-12-0023QevsfknIbxjf nervous system disorders (14 sources)Chronic pain syndrome; Translations: [Chronic pain syndrome]Onset: 442234-15-8002GrjdbdcIyjoy nervous system disorders (14 sources)Neuropathy; Translations: [Polyneuropathy, unspecified]Onset: 827229-94-8014RtbtqiqNmkwe nervous system disorders (2 sources)Other chronic pain; Translations: [Other chronic pain]Onset: 89-42-8621XwpgtxzNtwyc nutritional; endocrine; and metabolic disorders (15 sources)Disorder of mineral metabolism; 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, unspecified]Onset: 040041-03-5100WobyiihUugse nutritional; endocrine; and metabolic disorders (15 sources)Severe obesity; Translations: [Class 3 severe obesity due to excess calories with body mass index (BMI) of 45.0 to 49.9 in adult]Onset: 07-08-2024 36-69-4541WgzdxnfUdrop nutritional; endocrine; and metabolic disorders (1 source)Disorder of mineral metabolism, unspecified; 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, unspecified]Onset: 85-69-6410DyexrygOzvjh nutritional; endocrine; and metabolic disorders (1 source)Body mass index (BMI) 45.0-49.9, adult; Translations: [Body mass index (BMI) 45.0-49.9, adult]Onset: 18-97-1514DbryfezBxheg nutritional; endocrine; and metabolic disorders (1 source)Morbid (severe) obesity due to excess calories; Translations: [Morbid (severe) obesity due to excess calories]Onset: 32-43-0824MbecjefXoomfjel codes; unclassified (3 sources)Pain; Translations: [Pain]Onset: 03-02-0640SlxtpzblGiyzmnegxbh; intervertebral disc disorders; other back problems (20 sources)Lumbar spondylosis; Translations: [Spondylosis without myelopathy or radiculopathy, lumbar region]Onset: 632862-43-3573GmnhimdXndmexffcbjn (1 source)InjectionOnset: 08-74-7913Pteyymoqghap (1 source)4-[address] per dr ho from wound careOnset: 10-16-2024 Unclassified (1 source)Wound CheckOnset: 71-55-9998Lylrwlrraszp (1 source)Obesity, class 3; Translations: [Obesity, class 3]Onset: 07-08-2024 Unclassified (1 source)Hospital Follow-upOnset: 99-81-4270Jdogfpkjoybn (1 source)Back InjuryOnset: 92-82-5716Yhxitlvukgbk (1 source)Dressing ChangeOnset: 81-88-3516Jmntbrlvdfob (2 sources)Injections; Translations: [Injections]Onset: 12-30-2024 Past or Other Problems Problem ClassificationProblemDateDocumented DateEpisodic/ChronicAbdominal pain (1 source)Right upper quadrant pain; Translations: [Right upper quadrant pain] Onset: 06-80-9809EfcmtbkvBaitvrpi of urinary tract (18 sources)Kidney stone; Translations: [Calculus of kidney]Onset: 01-08-2017 22-53-8565ZyqgueswJbpjppai mellitus without complication (14 sources)Prediabetes; Translations: [Prediabetes]Onset: 744080-01-0972 EpisodicFluid and electrolyte disorders (20 sources)Hypokalemia; Translations: [Hypokalemia]Onset: 887969-38-0480 EpisodicGenitourinary symptoms and ill-defined conditions (15 sources)Kendall hematuria; Translations: [Gross hematuria]Onset: 01-08-2017 09-01-9113TjdhclvdYtnfdkuzg (14 sources)Influenza due to Influenza A virus; Translations: [Influenza due to other identified influenza virus with other respiratory manifestations]Onset: 464403-61-4831UpkxjbcaMyfv disorders (9 sources)Mood disordersOnset: 114169-26-0938Eaxvm bone disease and musculoskeletal deformities (1 source)Other specified disorders of bone density and structure, right thigh; Translations: [OTH D/O BONE DEN STRUCT RT THIGH]Onset: 25-29-6811BhbjwwguJpmay connective tissue disease (14 sources)Pain of left calf; Translations: [Pain in left lower leg]Onset: 35-26-201948730607-66-2416WsuzixjaRrdtw diseases of veins and lymphatics (14 sources)Disorder of vein of lower extremity; Translations: [Venous insufficiency (chronic) (peripheral)]Onset: 624783-68-3794GybvbbvxQqmiv diseases of veins and lymphatics (2 sources)Venous insufficiency (chronic) (peripheral); Translations: [Venous insufficiency (chronic) (peripheral)]Onset: 94-77-9542WckplsupYiyqi injuries and conditions due to external causes (1 source)Unspecified injury of right ankle, initial encounter; Translations: [Unspecified injury of right ankle, initial encounter]Onset: 27-14-8131Ouzixphg Other lower respiratory disease (1 source)Pleurodynia; Translations: [Pleurodynia]Onset: 87-95-1428LinnqfuqExbxr non-traumatic joint disorders (1 source)Pain in right hip; Translations: [Pain in right hip]Onset: 07-01-2024 EpisodicOther non-traumatic joint disorders (1 source)Pain in left hip; Translations: [Pain in left hip]Onset: 07-01-2024 EpisodicOther non-traumatic joint disorders (1 source)Pain in right knee; Translations: [Pain in right knee]Onset: 84-61-3426ZerxhhizUdszv non-traumatic joint disorders (2 sources)Pain in left knee; Translations: [Pain in left knee]Onset: 11-25-2024 EpisodicOther screening for suspected conditions (not mental disorders or infectious disease) (20 sources)Encounter for screening for malignant neoplasm of cervix; Translations: [Encounter for screening mammogram for malignant neoplasm of breast]Onset: 37-95-9175GffkcsryNehlm upper respiratory infections (14 sources)Sore throat symptom; Translations: [Acute pharyngitis, unspecified] Onset: 930496-95-9275AvpvknguYrigvict codes; unclassified (1 source)Asymptomatic menopausal state; Translations: [ASYMPTOMATIC MENOPAUSAL STATE]Onset: 90-21-8731WrytsgwfFcoloufk codes; unclassified (1 source)Family history of malignant neoplasm of trachea, bronchus and lung; Translations: [FAM HX MALIG NEOPLSM TRACH BRON LNG]Onset: 83-34-5462Fevnzumu Residual codes; unclassified (1 source)Family history of malignant neoplasm of breast; Translations: [FAMILY HX MALIG NEOPLASM OF BREAST]Onset: 03-27-0225RtdbeduzLlsdkxdbscr failure; insufficiency; arrest (adult) (15 sources)Acute respiratory failure; Translations: [Acute respiratory failure with hypoxia]Onset: 874262-54-1750TczceophUzyuhxtle and history of mental health and substance abuse codes (14 sources)Ex-smoker; Translations: [Personal history of nicotine dependence] Onset: 711190-99-7741KdhjtlldWjmf and subcutaneous tissue infections (15 sources)Cellulitis; Translations: [Cellulitis, unspecified]Onset: 07-07-2024 70-70-4597CpubemstRpipxrltsud; intervertebral disc disorders; other back problems (20 sources)Disorder of sacrum; Translations: [Sacrococcygeal disorders, not elsewhere classified]Onset: 902255-01-4633WbgfhugpLgkrado and strains (14 sources)Strain of knee; Translations: [Strain of unspecified muscle(s) and tendon(s) at lower leg level, unspecified leg, initial encounter]Onset: 993275-55-4131WaqxpcwlEpojjwx tract infections (14 sources)Urinary tract infectious disease; Translations: [Urinary tract infection, site not specified]Onset: 050541-74-8992FlgcyeeqTacoeguy veins of lower extremity (20 sources)Varicose veins of lower extremity; Translations: [Varicose veins of bilateral lower extremities with pain]Onset: 883326-49-0748Nsbrlcly Results Test NameValueInterpretationReference RangeFacilityOffice Visiton 08-20-2025 Follow-up [id number] Nikole Banerjee 1970 F Date Provider Department Center 08/20/2025 Edward-CARLIE BROWN MP ORTHO MPORTHO No family history on file Level of Service:45089 [place] OFFICE/OUTPT VISIT,PROCEDURE ONLY Reason for Visit and Comments: [facility] [319219][facility] CenterPro[facility] 28-62-5555Marelyzvb [id number] Nikole Banerjee 1970 Date Provider Department Center 08/11/2025 CARLIE BENTLEY MP ORTHO MPORTHO No family history on file Level of Service:13142 [place] OFFICE/OUTPT VISIT,PROCEDURE ONLY Reason for Visit and Comments: Follow-up [412372] - Second Supartz injection into her knee. No change since last weekNormalUniversity of Memorial [facility] City Medical CenterLetter (Out)on 36-12-2690Aebexz (Out)[id number] Nikole Banerjee 1970 Date Provider Department Center 08/05/2025 CARLIE BENTLEY MP ORTHO MPORTHO No family history on fileNormalUniversity of [facility] Medical CenterProcedure Visiton 16-30-1142Apzxgncwg [id number] Nikole Banerjee 1970 Provider Department Center 08/04/2025 CARLIE BENTLEY MP ORTHO MPORTHO No family history on file Level of Service:36394 [place] OFFICE/OUTPT VISIT,PROCEDURE ONLY Reason for Visit and Comments: Follow-up [343137] - Injection #1 SupartzNormalUniversity of Memorial Herm[facility] Memorial City Medical CenterMM TOMOSYNTHESIS SCREENING BIon 03-[place] [address] Mammography Report Signed Patient: NIKOLE BANERJEE MR#: [id number] : 1970 Acct:[id number] Age/Sex: 54 / F ADM Date: 08/02/25 Loc: MAMMO Attending Dr: Calvin Quintanilla D.O. Ordering Physician: Calvin Quintanilla D.O. Results: Date of Service: 08/02/25 Follow Up: Procedure(s): MM tomosynthesis screening BI Accession Number(s): [id number] cc: Calvin Quintanilla D.O.; Diana Michele NP Patient Name: NIKOLE BANERJEE MR#: [id number] : 1970 Exam Date: 08/02/2025 Ordering Doctor: DR CALVIN QUINTANILLA . RADIOLOGY REPORT PROCEDURE: MM TOMOSYNTHESIS SCREENING BI COMPARISON: MM TOMOSYNTHESIS SCREENING BI, 07/30/2024. MM TOMOSYNTHESIS SCREENING BI, 07/29/2023. MG MAMM SCREEN 3D NOÉ CAD, 07/27/2022. MG MAMM NOÉ SCRN W CAD DIG, 03/12/2013. INDICATIONS: Screening [...] breast cancer at age 32. LOCATION: [facility] BREAST COMPOSITION: The breasts are heterogeneously [...] Hedrick M.D. Signed By: 08/02/25 1736 DD/ 173 TD/TT: Thermodynamics Engineer:TBHRadiology, Radiologist, - 08/02/2025 [place] [address] Mammography Report Signed Patient: NIKOLE BANERJEE MR#: [id number] : 1970 Acct:[id number] Age/Sex: 54 / F ADM Date: 08/02/25 Loc: MAMMO Attending Dr: Calvin Quintanilla D.O. Ordering Physician: Calvin Quintanilla D.O. Results: Date of Service: 08/02/25 Follow Up: Procedure(s): MM tomosynthesis screening BI Accession Number(s): [id number] cc: Calvin Quintanilla D.O.; Diana Michele NP Patient Name: NIKOLE BANERJEE MR#: [id number] : 1970 Exam Date: 08/02/2025 Ordering Doctor: DR CALVIN QUINTANILLA . RADIOLOGY REPORT PROCEDURE: MM TOMOSYNTHESIS SCREENING BI COMPARISON: MM TOMOSYNTHESIS SCREENING BI, 07/30/2024. MM TOMOSYNTHESIS SCREENING BI, 07/29/2023. MG MAMM SCREEN 3D NOÉ CAD, 07/27/2022. MG MAMM NOÉ SCRN W CAD DIG, 03/12/2013. INDICATIONS: Screening [...] breast cancer at age 32. LOCATION: [facility] BREAST COMPOSITION: The breasts are heterogeneously [...] Dictated By: Lamin Hedrick M.D. Signed By: 08/02/251735 DD/ 34 TD/TT: Thermodynamics Engineer: [facility] HOSPITALRolly HealthcareRadiology Study observation (narrative)[facility] TOMOSYNTHESIS SCREENING BIOrdered By: Radiologist Radiology on 85-08-9619RV[facility] Work Phone: bEDSIDE GLUCOSEon 33-07-1033Lwrifcw [Mass/Vol]129 mg/mQGraa99-08RtzWbnrnp [facility]ness CenterComment on above:Performed By: #### BEDG #### [facility] ([facility]) [address] [place] [address]. [place] [address] VDY48hy 44-34-355037Yeruc with the pt. And she Has been scheduled for all 3 injectionNormalUniversMain Campus Medical Center36on [id number] authorization on file for APPROVAL SUPARTZ INJECTIONS - LEFT KNEE - 1X WEEKLY - X3 WEEKS Valid 07/05/2025 THRU 09/03/[address] all order'sNormalUnCommunity Regional Medical CenterOrders Onlyon 63-02-2708Vhnrhu [id number] Nikole Banerjee 1970 F Date Provider Department Center 07/05/2025 CARLIE BENTLEY MP ORTHO MPORTHO No family history on fileNormalUniSt. Charles HospitalTelephoneon [id number] Nikole Banerjee 1970 F Date Provider Department Center 07/05/2025 CARLIE BENTLEY MP ORTHO MPORTHO No family history on file Reason for Visit and Comments: CSI LT KNEE APPROVAL [Other]NormalUnCommunity Regional Medical CenterBEDSIDE GLUCOSEon 75-80-2827Dsoxjwi [Mass/Vol]140 mg/zPZktc35-63NeeHpufnt [facility]ness CenterComment on above:Performed By: #### BEDG #### [facility] ([facility]) [address] [place] [address]. [place] [address] VIROffice Visiton 41-85-3681Eacefj-up [id number] Nikole Banerjee 1970 Date Provider Department Center 06/30/2025 CARLIE BENTLEY MP ORTHO MPORTHO No family history on file Level of Service:81186 [place] OFFICE/OUTPATIENT ESTABLISHED LOW MDM 20 MIN (GC) Reason for Visit and Comments: Pain [136] - BWC - here to submit for a C9 for a large joint injectionNormal [facility]36on 04-26-252866Qxzuptq out to the pt., received vm - left a detail message in regards to her appt. On 07/02/25 @ 10:15 am, letting her know that we needed to reschedule her, as Dr. Brown will be out of town on 07/02/25 and I have her rescheduled for 06/30/25 @ 10:15 am. I did state if this time doesn't work for her to please call @ [phone] and I will get her rescheduled, otherwise we will see her 06/30/25 @ 10:15 am.[facility] Medical CenterCCF CALCIUMon 03-31-2025 Calcium [Mass/Vol]9.1 mg/dL8.5 - 10.1 mg/dLNOMN HealthcareNo Panel Informationon 84-49-7162ICXMCUMZXAMZD HealthcareTBH CREATININEon 73-54-7027Djgoijonxb [Mass/Vol]0.77 mg/dL0.55 - 1.02 mg/dLNOMN HealthcareGFR/1.73 sq M.predicted CKD- EPI (S/P/Bld) [Vol rate/Area]>60>=60 mL/min/1.73m 2NOMS HealthcareTBH EGFR-NON AF HAITIAN>60>=60 mL/min/1.73m 2NOMS HealthcareUS ABDOMEN LMTDon 71-87-1577OG ABDOMEN LMTDUS ABDOMEN LMTD ABDOMEN LIMITED ULTRASOUND HISTORY: Right upper quadrant pain COMPARISON: 05/15/2021 FINDINGS: Pancreas: Pancreas difficult to visualize secondary to overlying bowel gas. Diffusely increased hepatic echogenicity compatible with hepatocellular disease, probably secondaryto steatosis. Within these limits, no focal hepatic lesion. No intrahepatic biliary dilatation. Main portal vein is patent with appropriate direction of flow. Gallbladder surgically absent. Common duct measures 3 mm, within normal limits for patient's provided age. No visualized ascites. IMPRESSION: 1. Findings of hepatic steatosis. Finalized by Bj Vivas MD on 03/25/2025 9:34 [facility] XR RIBS RT 3 VWS W PA CHESTon 63-67-8590TR RIBS RT 3 VWS W PA CHESTXR RIBS RT 3 VWS W PA CHEST [...] by Aris Bradshaw MD on 03/16/2025 6:09 PMNormalEast Liverpool City Hospitalca [facility] IGP,APTIMA HPV,AGE GDLNon 41-10-5638EDI GDLN ACOG TESTINGNote.[facility] Comment on above:TESTS RESULT FLAG UNITS REF RANGE LAB Clinician Provided Cytology Information Source.............Cervix;Endocervix No. of containers..01 ThinPrep Vial Age Algo ACOG Oralia... 30-65 01 FLAG LEGEND: L-Low Normal,H-High Normal,LL-Alert Low,HH-Alert High <-Panic Low,>-Panic High,A-Abnormal,AA-Critical Abnormal Performed at: 01 =G [facility] [address] Selena Medina MD, HPV APTIMANegativeNegativeNOMS HealthcareComment on above:This nucleic acid amplification test detects fourteen high- risk HPV types (16,18,31,33,35,39,45,51,52,56,58,59,66,68) without differentiation. Performed at: =G - [facility] [id number] Tap And Die Maker Technician: Selena Medina MD, Phone: [phone] Performed at: - [address] [id number] Tap And Die Maker Technician: Selena Medina MD, Phone: [phone] IGP, APTIMA HPV, RFX 16/18,45Note.[facility]'S Hospital For RehabilitationComment on above:TESTS RESULT FLAG UNITS REF RANGE LAB DIAGNOSIS: 02 NEGATIVE FOR INTRAEPITHELIAL LESION OR MALIGNANCY. Specimen adequacy: 02 Satisfactory for evaluation. No endocervical component is identified. Performed by: Rodrigue Saab, Coconut Candy Maker . 02 Note: Note 02 The Pap [...] <-Panic Low,>-Panic High,A-Abnormal,AA-Critical Abnormal Performed at: 02 [facility] [address] [place] [address] Selena Medina MD, BRUSH-SPATULA CERVIX ENDOCERVIX CLINISYNCNOMS HealthcareUrinalysis macro (dipstick) panel (U)on 02-22-2025 Bilirubin, UANegativeNegative - 4(70) +++ mg/dLNOMS HealthcareBlood, UANegative Negative - 50 Dennis/mcLNOMS HealthcareClarity, UAClearNOMS HealthcareColor, UA YellowNOMS HealthcareGlucose, UANegativeNegative - 2000(110) ++++ mg/dLNOMS HealthcareInterpretation and review of laboratory resultsAbnormalNOMN [facility] Ketones, UAPositiveNegative - 160(16) ++++ mg/dLNOMS HealthcareLeukocytes, UA NegativeNegative - 500+++ Cherise/mcLNOMS HealthcareNitrite, UANegativeNegative - PositiveNOMS HealthcarepH, UA5.55 - 9NOMS HealthcareProtein, UANegativeNegative - 2000(20) ++++ mg/dLNOMS HealthcareSpec Grav, UA1.031 - 1.03[facility] Urobilinogen, UA0.20.2 - 12 mg/dLNOMS HealthcareNOMS HealthcareOffice Visiton 48-87-2564Kiaste-up [id number] Nikole Banerjee 1970 F Date Provider Department Center 12/30/2024 421-CARLIE BROWN MP No family history on file Level of Service:62660 VA OFFICE/OUTPT VISIT,PROCEDURE ONLY Reason for Visit and Comments: Injections [186] - HEALTH SYSTEM States the injections are working very well.[facility] - DublinOffice Visiton 88-77-7895Njgltm-up visit [id number] Nikole Banerjee 1970 F Date Provider Department Center 12/25/2024 CARLIE BENTLEY MP No family history on file Level of Service:96417 VA OFFICE/OUTPT VISIT,PROCEDURE ONLY Reason for Visit and Comments: Pain [136] - Supartz inj Injections [186] - Supartz injNormalUniversity of Fuller Medical CenterXR ABDOMEN AP 1 VWon 74-44-9285HL ABDOMEN AP 1 VWXR ABDOMEN AP 1 VW Abdomen single view Clinical history: Kidney stone Status post ESWL Comparison July 27, 2024 Impression: * Appropriate bowel pattern. No acute findings. No radiopaque stones identified but sensitivity compromised by body habitus and overlying stool. Finalized by Alonso Morataya MD on 12/22/2024 5:01 [facility] HOSPITALormalEast Liverpool City Hospitalca [facility]ness CenterOffice Visiton 33-72-6427Oaddpz-up [id number] Nikole Banerjee 1970 F Date Provider Department Center 12/16/2024 CARLIE BENTLEY MP No family history on file Level of Service:98200 VA OFFICE/OUTPT VISIT,PROCEDURE ONLY Reason for Visit and Comments: Injections [186] - Supartz inj Pain [136] - Supartz injNormalUniversMain Campus Medical Center36on 12-15-2024 36Spoke with the pt., to let her kow she has been approved for her gel inj. She is scheduled to start the series tomorrCleveland Clinic [facility] 36on 74-81-302255KNU authorization on file for SUPARTZ INJECTIONS 1X WEEK FOR 3 WEEKS Valid 12/08/2024- 01/05/2025NoPremier Health Miami Valley Hospital SouthTelephoneon [id number] Nikole Banerjee 1970 Date Provider Department Center 12/09/2024 CARLIE BENTLEY MP No family history on fileNormalUniSt. Charles HospitalOffice Visiton 97-98-1106Xehvks-up [id number] Nikole Banerjee 1970 F Date Provider Department Center 11/25/2024 CARLIE BENTLEY MP No family history on file Level of Service:86820 VA OFFICE/OUTPATIENT ESTABLISHED SF MDM 10 MIN () Reason for Visit and Comments: Follow-up [731973] - Here to submit a C9 for the Supartz inj Pain [136] - Here to submit a C9 for the Supartz injNormalUniversity of Memorial Hermann Memorial City Medical CenterCCF CALCIUMon 14-23-9679Dxuurdv [Mass/Vol]8.7 mg/dL8.5 - 10.1 mg/dLNOMN HealthcareNo Panel Informationon 13-98-3024EMFRCVEVOXZNL HealthcareTBH CREATININEon 34-56-6973Bcwjxidthh [Mass/Vol]0.85 mg/dL0.55 - 1.02 mg/dLNOMN HealthcareGFR/1.73 sq M.predicted CKD-EPI (S/P/Bld) [Vol rate/Area]>60>=60 mL/min/1.73m 2NOKLAHOMA STATE UNIVERSITY MEDICAL [facility]UL[facility] HealthcareTBH EGFR-NON AF HAITIAN>60>=60 mL/min/1.73m 2NOKLAHOMA STATE UNIVERSITY MEDICAL CENTER – [facility]ULSA HealthcareURINALYSISon 33-31-2187Scaeejtxg Ql (U)NegativeNormalNEGProHemphill County HospitalComment on above:Performed By: #### UA #### [facility] ([id number]) [address] [place] [address], [address] [place], [place] [address]DWJIQ/HGBNegativeNormalNEGUniversity Hospitals Portage Medical CenterComment on above:Performed By: #### UA #### [facility] ([id number]) [address] [place] [address], [address] [place], [place] [address]Nzgia (U)YELLOWNormalYELLOWProHemphill County HospitalComment on above:Performed By: #### UA #### [facility] ([id number]) [address] [place] [address], [address] [place], [place] [address]Aibqgma Ql (U)NegativeNormalNEGProHemphill County HospitalComment on above:Performed By: #### UA #### [facility] ([id number]) [address] [place] [address], [address] [place], [place] [address]Sjgmirp Ql (U)NegativeNormalNEGProHemphill County HospitalComment on above:Performed By: #### UA #### [facility] ([id number]) [address] [place] [address], [address] [place], [place] [address]Kovvbsals esterase Test strip Ql (U)NegativeNormalNEGUniversity Hospitals Portage Medical CenterComment on above:Performed By: #### UA #### [facility] ([id number]) [address], [address] [place], [place] [address]Zzgkmcx Ql (U)NegativeNormalNEGUniversity Hospitals Portage Medical CenterComment on above:Performed By: #### UA #### [facility] ([id number]) [address], [address] [place], [place] [address]oF (U)6.5 [pH]Normal5.0-8.5PAccess Hospital DaytonComment on above:Performed By: #### UA #### [facility] ([id number]) [address] [address] [place], [place] [address]Dwbgusi Ql (U)NegativeNormalNEGUniversity Hospitals Portage Medical CenterComment on above:Performed By: #### UA #### [facility] ([id number]) [address] [facility] [address] [place], [place] [address]Nqapefmy gravity (U) [Rel density]1.211Rxvbws1.003-1.035 [facility] Wellness CenterCommclaren central mich[place] on above:Performed By: #### UA #### [facility] ([id number]) [address], [address] [place], [place] [address]TPMKZWTRPRJUAHOqrclcTEXHLEjsZyyzga Fremont HospitalComment on above:Performed By: #### UA #### [facility] ([id number]) [address], [address] [place], [place] [address]Pmfrabnrgizz (U) [Mass/Vol]mg/dLNormal<1.1PAccess Hospital DaytonComment on above:Performed By: #### UA #### [facility] ([id number]) [address], [address] [place], [place] [address]RIFMC CULTUREon 87-93-7033Ooxvilxv identified Cx Nom (U)CULTURE RESULTS 10-50,000 ORGANISMS/mL NORMAL UROGENITAL FLORANormalProMedica [facility] And [facility] Center Comment on above:Performed By: #### 630-4 #### [facility] ([id number]) [address] [place] [address], [address] [place], [place] [address]LF DEXA AXIAL SKELETONon 30-88-4232[place]dg[place], [place] [address] XRay Report Signed Patient: NIKOLE BANERJEE MR#: [id number] : 1970 Acct:[id number] Age/Sex: 53 / F ADM Date: 08/04/24 Loc: RAD Attending Dr: Calvin Quintanilla D.O. Ordering Physician: Calvin Quintanilla D.O. Date of Service: 08/04/24 Procedure(s): XR DEXA axial skeleton Accession Number(s): [id number] cc: Calvin Quintanilla D.O.; Angelica Flores [address] [address] Patient Name: NIKOLE BANERJEE MRN: [id number] date: 1970 Sex: F Assigned Patient Location: [facility] Current Patient Location: [facility] Accession/Order Number: [id number] Exam Date: 08/04/2024 11:40 Report Date: 08/04/2024 13:03 At the request of: CALVIN QUINTANLILA Procedure: XR DEXA axial skeleton EXAMINATION: XR DEXA axial skeleton HISTORY: Postmenopausal COMPARISON: DEXA bone densitometry 07/27/2022 TECHNIQUE: Dual-energy X-ray absorptiometry (DXA) was performed. FINDINGS: SPINE ANALYSIS: Average bone mineral density is 0.892 g/cm2. T-score (standard deviation relative to young adult mean): -2.6 . -10.7% change since prior study. HIP ANALYSIS: Lowest bone mineral density is within the left femoral neck, 0.780 g/cm2. T-score (standard deviation relative to young adult mean): -1.9 . -6.3% change since prior study. XR/XR DEXA axial skeleton IMPRESSION: World Health Organization Classification: Osteoporosis - High Fracture Risk FRAX: Cannot be calculated. Pharmacologic treatment recommendations * No uniform recommendation applies to all patients. Management plans must be individualized. * Consider initiating pharmacologic treatment in postmenopausal women and men >= 50 years of age who have the following: Primary fracture prevention: * T-score <= - 2.5 at the femoral neck, total hip, lumbar spine, 33% radius (some uncertainty with existing data) by DXA. * Low bone mass (osteopenia: T-score between - 1.0 and - 2.5) at the femoral neck or total hip by DXA with a 10-year hip fracture risk >= 3% or a 10-year major osteoporosis-related fracture risk >= 20% (i.e., clinical vertebral, hip, forearm, or proximal humerus) based on the [place]-adapted FRAXregistered model. Secondary fracture prevention: * Fracture of the hip or vertebra regardless of BMD [4, 5]. * Fracture of proximal humerus, pelvis, or distal forearm in persons with low bone mass (osteopenia: T-score between - 1.0 and - 2.5). The decision to treat should be individualized in persons with a fracture of the proximal humerus, pelvis, or distal forearm who do not have osteopenia or low BMD [12, 13]. Sariah MS, Chidi SL, Vivienne KL, Elicia EM, Waqas KG, AJ, Sarthak ES. The clinician's guide to prevention and treatment of osteoporosis. Osteoporos Int. 2021;33(10):3512-4071. doi: 10.1007/y25733-256-65287-z. Epub 2021Feb 22. Erratum in: Osteoporos Int. 2021May 24;: PMID: 55173370; PMCID: [id number]. Electronically authenticated by: RENE MCLAIN Date: 08/04/2024 13:03 Dictated By: Rene Mclain M.D. Signed By: 08/04/24 1306 DD/ 1303 TD/TT: Thermodynamics Engineer:TBHRadiology, Radiologist, - 08/04/2024 [place] [address] XRay Report Signed Patient: NIKOLE BANERJEE MR#: [id number] : 1970 Acct:[id number] Age/Sex: 53 / F ADM Date: 08/04/24 Loc: ADRIAN Attending Dr: Calvin Quintanilla D.O. Ordering Physician: Calvin Quintanilla D.O. Date of Service: 08/04/24 Procedure(s): XR DEXA axial skeleton Accession Number(s): [id number] cc: Calvin Quintanilla D.O.; Angelica Flores [place] [address] Patient Name: NIKOLE BANERJEE MRN: [id number] date: 1970 Sex: F Assigned Patient Location: [facility] Current Patient Location: [facility] Accession/Order Number: [id number] Exam Date: 08/04/2024 11:40 Report Date: 08/04/2024 13:03 At the request of: CALVIN QUINTANILLA Procedure: XR DEXA axial skeleton EXAMINATION: XR DEXA axial skeleton HISTORY: Postmenopausal COMPARISON: DEXA bone densitometry 07/27/2022 TECHNIQUE: Dual-energy X-ray absorptiometry (DXA) was performed. FINDINGS: SPINE ANALYSIS: Average bone mineral density is 0.892 g/cm2. T-score (standard deviation relative to young adult mean): -2.6 . -10.7% change since prior study. HIP ANALYSIS: Lowest bone mineral density is within the left femoral neck, 0.780 g/cm2. T-score (standard deviation relative to young adult mean): -1.9 . -6.3% change since prior study. XR/XR DEXA axial skeleton IMPRESSION: World Health Organization Classification: Osteoporosis - High Fracture Risk FRAX: Cannot be calculated. Pharmacologic treatment recommendations * No uniform recommendation applies to all patients. Management plans must be individualized. * Consider initiating pharmacologic treatment in postmenopausal women and men >= 50 years of age who have the following: Primary fracture prevention: * T-score <= - 2.5 at the femoral neck, total hip, lumbar spine, 33% radius (some uncertainty with existing data) by DXA. * Low bone mass (osteopenia: T-score between - 1.0 and - 2.5) at the femoral neck or total hip by DXA with a 10-year hip fracture risk >= 3% or a 10-year major osteoporosis-related fracture risk >= 20% (i.e., clinical vertebral, hip, forearm, or proximal humerus) based on the US-adapted FRAXregistered model. Secondary fracture prevention: * Fracture of the hip or vertebra regardless of BMD [4, 5]. * Fracture of proximal humerus, pelvis, or distal forearm in persons with low bone mass (osteopenia: T-score between - 1.0 and - 2.5). The decision to treat should be individualized in persons with a fracture of the proximal humerus, pelvis, or distal forearm who do not have osteopenia or low BMD [12, 13]. Sariah MS, Chidi SL, Vivienne KL, Elicia EM, Waqas KG, AJ, Sarthak ES. The clinician's guide to prevention and treatment of osteoporosis. Osteoporos Int. 2021;33(10):6983-6020. doi: 10.1007/j52424-963-21266-p. Epub 2021Feb 22. Erratum in: Osteoporos Int. 2021May 24;: PMID: 07148762; PMCID: [id number]. Electronically authenticated by: RENE MCLAIN Date: 08/04/2024 13:03 Dictated By: Rene Mclain M.D. Signed By: 08/04/24 1306 DD/ 1303 TD/TT: Thermodynamics Engineer: PASCUAL HealthcareRadiology Study observation (narrative)[facility] HealthcareXR DEXA AXIAL SKELETONOrdered By: Radiologist Radiology on 24-58-5228ZOJN [employer] Work Phone: mm TOMOSYNTHESIS SCREENING BIon 99-71-8437JttEast[place], [place] [address] Mammography Report Signed Patient: NIKOLE BANERJEE MR#: [id number] : 1970 Acct:[id number] Age/Sex: 53 / F ADM Date: 07/30/24 Loc: MAMMO Attending Dr: Calvin Quintanilla D.O. Ordering Physician: Calvin Quintanilla D.O. Results: Date of Service: 07/30/24 Follow Up: Procedure(s): MM tomosynthesis screening BI Accession Number(s): [id number] cc: Calvin Quintanilla D.O.; Angelica Flores Patient Name: NIKOLE BANERJEE MR#: [id number] : 1970 Exam Date: 07/30/2024 Ordering Doctor: DR Calvin Quintanilla . RADIOLOGY REPORT PROCEDURE: MM TOMOSYNTHESIS SCREENING BI COMPARISON: MM TOMOSYNTHESIS SCREENING BI, 07/29/2023. INDICATIONS: Screening Calculator Name NCI Breast Cancer Risk Assessment Tool 5 Year Breast Cancer Risk 3.40% Lifetime Breast Cancer Risk 24.40% Personal Breast Cancer No Personal Ovarian Cancer No Treatments None Family Cancers Sister with breast cancer at age 51; Father with lung cancer at age 55; Aunt-paternal with lung cancer at age 60; Cousin-paternal with breast cancer at age 32. LOCATION: [facility] BREAST COMPOSITION: The breasts are heterogeneously dense,which may obscure small masses. FINDINGS: DIAGNOSTIC CATEGORY 2--BENIGN FINDING: Scattered benign-appearing calcifications are present. Scattered benign-appearing lymph nodes are present. RIGHT BREAST: No significant suspicious finding. LEFT BREAST: No significant suspicious finding. RECOMMENDATIONS: ROUTINE MAMMOGRAM AND CLINICAL EVALUATION IN 12 MONTHS. PLEASE NOTE: A NORMAL MAMMOGRAM DOES NOT EXCLUDE THE POSSIBILITY OF BREAST CANCER. A CLINICALLY SUSPICIOUS PALPABLE LUMP SHOULD BE BIOPSIED. Dictated by: Shakira Mary MD on 07/30/2024 at 15:39 Approved by: Shakira Mary MD on 07/30/2024 at 15:50 Dictated By: Shakira Mary M.D. Signed By: 07/30/24 1551 DD/ 1550 TD/TT: Thermodynamics Engineer:TBHRadiology, RadiologistMD - 07/30/2024 [place] [address] Mammography Report Signed Patient: NIKOLE BANERJEE MR#: [id number] : 1970 Acct:[id number] Age/Sex: 53 / F ADM Date: 07/30/24 Loc: MAMMO Attending Dr: Calvin Quintanilla D.O. Ordering Physician: Calvin Quintanilla D.O. Results: Date of Service: 07/30/24 Follow Up: Procedure(s): MM tomosynthesis screening BI Accession Number(s): [id number] cc: Calvin Quintanilla D.O.; Angelica Flores Patient Name: NIKOLE BANERJEE MR#: [id number] : 1970 Exam Date: 07/30/2024 Ordering Doctor: DR Calvin Quintanilla . RADIOLOGY REPORT PROCEDURE: MM TOMOSYNTHESIS SCREENING BI COMPARISON: MM TOMOSYNTHESIS SCREENING BI, 07/29/2023. INDICATIONS: Screening Calculator Name NCI Breast Cancer Risk Assessment Tool 5 Year Breast Cancer Risk 3.40% Lifetime Breast Cancer Risk 24.40% Personal Breast Cancer No Personal Ovarian Cancer No Treatments None Family Cancers Sister with breast cancer at age 51; Father with lung cancer at age 55; Aunt-paternal with lung cancer at age 60; Cousin-paternal with breast cancer at age 32. LOCATION: [facility] BREAST COMPOSITION: The breasts are heterogeneously dense,which may obscure small masses. FINDINGS: DIAGNOSTIC CATEGORY 2--BENIGN FINDING: Scattered benign-appearing calcifications are present. Scattered benign-appearing lymph nodes are present. RIGHT BREAST: No significant suspicious finding. LEFT BREAST: No significant suspicious finding. RECOMMENDATIONS: ROUTINE MAMMOGRAM AND CLINICAL EVALUATION IN 12 MONTHS. PLEASE NOTE: A NORMAL MAMMOGRAM DOES NOT EXCLUDE THE POSSIBILITY OF BREAST CANCER. A CLINICALLY SUSPICIOUS PALPABLE LUMP SHOULD BE BIOPSIED. Dictated by: Shakira Mary MD on 07/30/2024 at 15:39 Approved by: Shakira Mary MD on 07/30/2024 at 15:50 Dictated By: Shakira Mary M.D. Signed By: 07/30/24 1551 DD/ 1550 TD/TT: Thermodynamics Engineer: NOMRolly HealthcareRadiology Study observation (narrative)[facility] TOMOSYNTHESIS SCREENING BIOrdered By: Radiologist Radiology on [id number] John's Regional Health Center Work Phone: cytology Cervical or vaginal smear or scraping studyon 54-74-0087OLNVSaint John's Regional Health CenterVC VENOUS REFLUX NOÉ LMTon 72-31-4617ZY VENOUS REFLUX NOÉ LMTPatient: NIKOLE BANERJEEMohsen Exam Date: 03/12/2023 : 1970 Gender:F Ordering : DR JENNIFER HO M.D. Admission #: [id number] Family : Order #: [id number] CLICK HERE TO VIEW EXAM RADIOLOGY REPORT [...] chronic thrombus visualized Compressibility: Normal Flow: Normal Esthetician/Owner: Dist/med calf 3.8mm with 0s reflux. Tech [...] by: Shakira Mary MD on 03/12/2023 at 12:10NoTriHealth Bethesda Butler HospitalPap IG, rfx Aptima HPV, rfx 16/18,45on 02-20-2023..NormalCorey Hospital Comment on above:Result Comment: Performed at: WBPerformed By: #### [id number] #### [facility] [address] [place] [address] Dr. Marco Antonio JoshiDIAGNOSIS:CommentNoTriHealth Bethesda Butler HospitalCommclaren central [place] on above: Result Comment: NEGATIVE FOR INTRAEPITHELIAL LESION OR MALIGNANCY. Performed at: WBPerformed By: #### [id number] #### [facility] [address] [place] [address] Dr. Marco Antonio Xavier AptimaNegativeNormalNegativeCorey HospitalComment on above:Result Comment: This nucleic acid amplification test detects fourteen high-risk HPV types (16,18,31,33,35,39,45,51,52,56,58,59,66,68) without differentiation. Performed at: =GPerformed By: #### [id number] #### [facility] [address] [place] [address] Dr. Marco Antonio Xavier Genotype ReflexComCleveland Clinic Fairview Hospital on above:Result Comment: Criteria not met, HPV Genotype not performed. Performed at: WBPerformed By: #### [id number] #### [facility] [address] [place] [address] Dr. Marco Antonio JoshiMethodology:CommentAultman Orrville Hospital on above: Result Comment: This liquid based ThinPrep(R) pap test was screened with the use of an image guided system. Performed at: WBPerformed By: #### [id number] #### [facility] [address] [place] [address] Dr. Marco Antonio JoshiNote:CommentAultman Orrville Hospital on above:Result Comment: The Pap smear is a screening test designed to aid in the detection of premalignant and malignant conditions of the uterine cervix. It is not a diagnostic procedure and should not be used as the sole means of detecting cervical cancer. Both false-positive and false-negative reports do occur. . Performed at: WBPerformed By: #### [id number] #### [facility] [address] [place] [address] Dr. Marco Antonio JoshiPerformed by:CommentAultman Orrville Hospital on above: Result Comment: Chris Vaughn, Environmental Issues Instructor (ASCP) Performed at: WBPerformed By: #### [id number] #### [facility] [address] [place] [address] Dr. Marco Antonio JoshiSpecimen adequacy:CommentAultman Orrville Hospital on above:Result Comment: Satisfactory for evaluation. Endocervical and/or squamous metaplastic cells (endocervical component) are present. Performed at: WBPerformed By: #### [id number] #### [facility] [address] [place] [address] Dr. Marco Antonio JoshiMG MAMM SCREEN 3D NOÉ CADon [id number] MAMM SCREEN 3D NOÉ CAD Patient: NIKOLE BANERJEE Exam Date: 07/27/2022 : 1970 Gender:F Ordering : DR CALVIN QUINTANILLA . Admission #: [id number] Family : Order #: [id number] CLICK HERE TO VIEW EXAM RADIOLOGY REPORT [...] breast cancer at age 32. LOCATION: [facility] BREAST COMPOSITION: Heterogeneously dense,which may obscure [...] by: Shakira Mary MD on 07/27/2022 at 15:29[facility]uclid HospitalXR DEXA BONE DENSITYon [id number] DEXA BONE DENSITYEXAMINATION: XR DEXA BONE DENSITY, 07/27/2022 1:01 PM [...] Electronically authenticated by: SHAKIRA MARY Date: 2022-07-27 18:06[facility]uclid HospitalMRI KNEE WO CONTRAST LEFTon [id number] KNEE WO CONTRAST LEFT [facility] Department of Radiology [address] [place] [id number] Patient Name: NIKOLE BANERJEE : 1970 Sex: F Age: Race: NA Pt. Location: 84 Patient Status: D Ordered Date: 09/20/2021 12:10:00 PM Completed Date: 09/27/2021 01:36 PM Requesting Provider: JOVANNI YOU Attending Provider: JOVANNI YOU Report Copy To: UNKNOWN, PHYSICIAN Signs & Symptoms: S86.912A Strain of unsp musc/tend at lower leg level, left leg, init I10 History: [place], R breast marker Comments: , , , [...] injury. Electronically signed: Martha Bazan. Transcribed by: [email or web address], User Resident: Electronically Signed by: MARTHA BAZAN @ 09/29/2021 04:02 [facility] HospitalComment on above:Order Comment: , , , Ordering Provider - JOVANNI YOU MD , KNEE LEFT 3 [facility] 96-40-0536NESW LEFT 3 [facility]UniSt[facility] Department of Radiology [address] [place] [phone] Patient Name: NIKOLE BANERJEE : 1970 Sex: F Age: Race: NA Pt. Location: 84 Patient Status: O Ordered Date: 08/02/2021 11:25:00 AM Completed Date: 08/02/2021 11:36 AM Requesting Provider: JOVANNI YOU Attending Provider: JOVANNI YOU Report Copy To: Signs & Symptoms: M25.562 Pain in left knee I10 History: [place] Comments: Evaluate Exam: KNEE LEFT 3 VWS KNEE LEFT 3 VWS 08/02/2021 11:36 AM CLINICAL INDICATIONS: M25.562 Pain [...] osteoarthritis. Electronically signed: Jaren Hay. Transcribed by: [email or web address], User Resident: Electronically Signed by: JAREN HAY @ 08/02/2021 11:48 [facility] HospitalComment on above:Order Comment: Evaluate Coding Summary.on 51-23-0710Zmwait Summary.CODING DATE: 01/04/2020 FINAL [facility] STATUS: Home (Routine DC) PAYOR: Medicaid ADMIT [...] Judy Duff CphT Date Saved: 01/04/2020 10:19 [facility]CT Maxillofacial w/o Contraston [id number] Maxillofacial w/o ContrastExam Date/Time: 01/01/2020 16:08 EST Reason for Exam: [...] Martha Terry MD Transcribed by: RAVIN Technologist: [facility] Hospital CenterED Noteon [id number] IP Note OR TranscriptionSumma Health Wadsworth - [facility]itt[facility] Center Provider Noteon [id number] IP Note OR [facility] CenterXR ANKLE RIGHT STANDARDon [id number] ANKLE RIGHT STANDARD EXAMINATION:3 VIEWS OF THE RIGHT ANKLE11/19/2017 7:04 pmCOMPARISON:None.HISTORY:Reason for exam:->fall, twisted ankle, pain to lateral mallelousFINDINGS:Mild cortical irregularity about the lateralmalleolus. No dislocation.Normal alignment of the ankle mortise. No focal osseous lesion. Mild bonyspurring along the plantar aspect of the calcaneus. Mild soft tissueswelling about the ankle.IMPRESSION: Mild cortical irregularity of the lateral malleolus, possibility ofunderlying fracture not excluded. Consider further evaluation with CT asclinically warranted.Interpreted by:SINCERE Roseigned by:Sixto Zelaya MD11/19/17inal resultCleveland Clinic Avon HospitalOutside Recordson 02-78-2001Sleaair [id number]#1.00OTGTIFF [facility] HospitalED Clinical Summaryon [id number] Clinical Summary [facility] ? [address]gent [address] [place] [phone] SummaryPERSON INFORMATIONName: NIKOLE BANERJEE Age: 46 Years Sex: FEMALEDOB: [birth year] MRN: Acct#:Visit Reason:work physical; PRE EMPLOYMENT FOR [employer] Arrival:09/26/17 15:48:28 Discharge: 09/26/17 16:30:00LOS: 000 00:42 Check In: 09/26/17 15:48:28 Checkout: 09/26/17 16:30:00Address:[address] [id number]: Provider, NonePROVIDER INFORMATIONProvider Role Assigned UnassignedYO PEREZ PA 09/26/17 15:52:07Carolyn Saab ED Nurse 09/26/17 15:54:15VITALS INFORMATIONVital Sign Triage LatestTemperature TympanicTemperature Temporal ArteryPulse Rate 60 bpm 60 bpmO2 Sat 98 % 98 %Respiratory Rate 18 br/min 18 br/minBlood Pressure 108 mmHg/72 mmHg 108 mmHg/72 mmHgMEDICAL INFORMATIONMedications Given:Allergy Information:LatexPHYSICIAN DOCUMENTATIONPatient: NIKOLE BANERJEE : 46 years Sex: FEMALE : [birth year]Associated Diagnoses: Physical examAuthor: YO PEREZ YPkimrydfob81-hgoz-jnu female presenting to urgent care with complaint of needing a work physical. 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 She states that she will be working with any In-home healthcare. She states she currently does this position with another company this is a second job. She does admit to being a smoker. Health StatusAllergies:No active allergies have been recorded.ObjectiveCONST: -Well-developed well-nourished. -Acute distress: No -Vitals: reviewed.SKIN: - Gross abnormalities: NoEYES: -EOM intact, FABBY: -Sclera conjunctiva: Unremarkable.ENT: - pharynx pink and moist.NECK: -Supple (tgky-cv-xmdgf): non- tender.CARD: -Rate and rhythm: Regular -Edema: No -Calf pain: NoRESP: - Respiratory effort and chest excursion with respirations: Normal -Breath sounds equal bilaterally: Clear -Wheezes: Mild expiratory wheeze -Rales: NoBACK: -Signs of pain with movement: NoABD: -Distended: No -Bruits: No -Bowel sounds: Normal. -Deep palpation: Non-tender, soft, no guarding or rebound tenderness.EXT: Gross appearance and use of all four extremities: UnremarkableNEURO: -Patient: alert - Gross CN or Focal Neuro deficits: No -Oriented to: person, place and time. - Appearance and judgment: appropriate.Impression and PlanAssessment and Plan: Diagnosis: Physical exam (LFR93-JY Z00.00).46-year-old female [facility] exam for work. Patient does admit to having possible history of heart murmur. I indicated to hear heart murmur today. I indicated to the patient that she should follow up primary care provider as needed at this time I do not see any reason why she cannot work. Patient is stable and will be discharged.DISCHARGE INFORMATION:Discharge Disposition: HomeDischarge Location: HomePATIENT EDUCATION INFORMATIONInstructions:Follow-Up:DIAGNOSIS:Physical examComment:[facility] HospitalED Note - Physicianon 18-27-8736CM Note - PhysicianPatient: NIKOLE BANERJEE : 46 years Sex: FEMALE : [birth year]Associated Diagnoses: Physical examAuthor: YO PEREZ HFhamqxpbxy93-npae-uls female presenting to urgent care with complaint [...] a smoker.Health StatusAllergies:No active allergies have been recorded .ObjectiveCONST: -Well-developed well-nourished. -Acute distress: No -Vitals: reviewed.SKIN: -Grossabnormalities: NoEYES: -EOM intact, FABBY: -Sclera conjunctiva: Unremarkable.ENT: - pharynx pink andmoist.NECK: -Supple (gcdt-zf-bagzy): non-tender.CARD: -Rate and rhythm: Regular -Edema: No -Calf geovanni n: NoRESP: -Respiratory effort and chest excursion with respirations: Normal - Breath sounds equal bilaterally: Clear -Wheezes: Mild expiratory wheeze -Rales: NoBACK: -Signs of pain with movement: NoABD: -Distended: No -Bruits: No -Bowel sounds: Normal. -Deep palpation: Non-tender, soft, no guardingor rebound tenderness.EXT: Gross appearance and use of all four extremities: UnremarkableNEURO: -Patient: alert -Gross CN or Focal Neuro deficits: No - Oriented to: person, place and time. -Appearanceand judgment: appropriate.Impression and PlanAssessment and Plan: Diagnosis: Physical exam (SMV04-ZF Z00.00).46-year-old female present to urgent care for [...] discharged.[Electronically Signed on: 09/26/2017 16:32 EST] YO PEREZ [Verified on: 09/26/2017 16:32 EST] OY PEREZ [facility] HospitalED Patient Summaryon [id number] Patient [facility] ? Urgent [address] [place] [id number] pATIENT DISCHARGE I NSTRUCTIONSPatient InformationName: NIKOLE BANERJEE Age: 46 YearsDate of : [birth year]MRN: [id number] For Visit: work physical; PRE EMPLOYMENT FOR ECIArrival Time: 09/26/17 15:48:28Phone: Primary Care Physician: Provider, NoneAttending Physician: YO PEREZ omment:Patient EducationMedication Information:The exam and treatment you received today in the [facility] Emergency Department were for an urgent problem and are not intended as complete care. It is important for you to follow up with a doctor, nurse practitioner, or physician?s career services assistant for ongoing care. If your symptoms become worse or you do not improve as expected and you are unable to reach your usual health care provider, you should return to the Emergency Department, we are available 24 hours a day.For those patients who have received Radiology results, the interpretation of your X-spencer given to you by our Emergency Department physician is only a preliminary report. The Radiologistwill review your films and if there is a change in the diagnosis you will be notified by phone. Please make sure you have provided a working phone number so we can reach you if necessary.In the eventthat you had a lab culture while you were a patient in the Emergency Department, you will be notified by phone if there is a need to change your antibiotic. Please make sure you have provided a working phone number so we can reach you if necessary.[facility] Emergency Department has providedyou with a complete list of medications post discharge. Please inform your reading efficiency course director/providerof your visit and for further instruction on these medications. Any specific questions regarding your chronic medications and dosages should be discussed with your primary care physician(s) and/or pharmacist. Medications to Continue That Have Not ChangedOther Medicationsacetaminophen-hydrocodone ([place] 5 mg-325 mg oral tablet) 1 tab(s) [...] drills, sewing machines, or stoves? Avoid alcoholic beverage s and drugs for allergies, nerves, or sleep? [...] Weight: 105.0 kg Body Mass Index: 43.7 kg/g0Jjomgaos List:Problem Onset CommentsAsthmaKidney stonesMurmur, cardiacThrombophlebitisMajor Tests and Procedures:The following procedures and tests were performed during your ED visit.LaboratoryRadiologyCardiology Viruses or BacteriaWhat?s got you sick?Antibiotics only [...] effusion) NOUrinary Tract Infection YesAntibiotics Aren?t Always theAnswerwww.cdc.gov/getsmart GET SMART Know When Antibiotics Gayle.S. Department of Health and Human ServicesCenters for Disease Control and Prevention June 2014[facility] Vital Signs Date TimeVital SignValuePerforming LqztbvkneXmzezofx86-80-6157 13:36-0400Body dkrxve408.9 cmMeKnee Creations Work Phone: [facility] HospitalBiocept10-22-2025 13:36-0400Body mass index (BMI) [Ratio]50.45 kg/o1GlfquBlue Horizon Organic Seafood PAChaikin Stock Research Work Phone: [facility] HospitalBiocept10-22-2025 13:36-0400Body oddenc716.11 kgMegan Verhoff PA-C Work Phone: [facility] HospitalAehr Test Systems10-22-2025 13:36-0400Diastolic blood wlpplkqu66 mm[Hg]Rocael Verhoff PA-C Work Phone: [facility] HospitalNetwork Physics Jmffbg25-49-3477 13:36-0400Heart rate 95 /minMegan Verhoff PA-C Work Phone: [facility] HospitalAehr Test Systems10-22-2025 13:36-0400 Respiratory rate20 /minMegan Verhoff PA-C Work Phone: [facility] HospitalAe[facility] Systems10-22-2025 13:36-0400Systolic blood iqvxllbn401 mm[Hg]Rocael Verhoff PA-C Work Phone: [facility] [employer] Sodjya61-36-9304 13:05-0400Body esnfcu691.9 cmMegan Verhoff PA-C Work Phone: [facility]Network [facility] Bjqrut69-94-0654 13:05-0400Body mass index (BMI) [Ratio]49.69 kg/s9Pkjtn Verhoff PA-C Work Phone: [facility] HospitalAehr Test Systems08-13-2025 13:05-0400Body .3 kgMegan Verhoff PA-C Work Phone: [facility]Network [facility] Emvllc71-22-1453 13:05-0400Diastolic blood oqwdgkoe89 mm[Hg]Rocael Verhoff PA-C Work Phone: [facility]Network Physics Gjwuiz63-57-9612 13:05-0400Heart rate 95 /minMegan Verhoff PA-C Work Phone: [facility] HospitalAehr Test Systems08-13-2025 13:05-0400 Respiratory rate18 /minMegan Verhoff PA-C Work Phone: [facility]Network Physics Eagmsf62-69-5432 13:05-7481FeF6% (BldA) [Mass fraction]96 %Rocael Verhoff PA-C Work Phone: [facility] [employer] Kaqyor79-42-0000 13:05-0400Systolic blood wbekpjqe570 mm[Hg]Rocael Verhoff PA-C Work Phone: [facility]06-20-2025 14:19-0400Body pkxihx739.9 cmJennifer Ho MD Work Phone: 1(494)[facility] [employer] Ggbwvf92-78-1908 14:19-0400Body mass index (BMI) [Ratio]50.64 kg/e2GuncxJennifer Ho MD Work Phone: 1(004)[facility] [employer] Tycmud45-59-5469 14:19-0400Body sohksz807.56 kgJennifer Ho MD Work Phone: 1([phone])[facility] [employer] Rxblir89-81-5863 14:19-0400Diastolic blood ihpqfkkq24 mm[Hg]Jennifer Ho MD Work Phone: 1(127)[facility] [employer] Adwacg81-68-7122 14:19-0400Systolic blood aetarofk674 mm[Hg]Jennifer Ho MD Work Phone: 1(215)[facility] [employer] Abvqlz03-31-3800 12:58-0400Body .9 cmMegan Verhoff PA-C Work Phone: [facility] [employer] Tzgjvw91-42-1543 12:58-0400Body mass index (BMI) [Ratio]50.64 kg/j5Drzyq Verhoff PA-C Work Phone: [facility] [employer] Nlzhcc29-04-8703 12:58-0400Body inyheh634.56 kgMegan Verhoff PA-C Work Phone: [facility]Network Physics Biuwvf07-93-3633 12:58-0400Diastolic blood xbaibepx73 mm[Hg]Rocael Verhoff PA-C Work Phone: [facility] [employer] Qdukzc51-95-9647 12:58-0400Heart rate 97 /minMegan Verhoff PA-C Work Phone: [facility] [employer] Rizkye31-34-8532 12:58-0400 Respiratory rate16 /minRocael Enamoradohoff PA-C Work Phone: [facility] [employer] Jdkwem04-83-3492 12:58-6188IqI2% (BldA) [Mass fraction]100 %Rocael Verhoff PA-C Work Phone: [facility]05-14-2025 12:58-0400Systolic blood ygxtgwcy395 mm[Hg]Rocael Knowlesff PA-C Work Phone: [facility]05-07-2025 14:17-0400Body buevcz006.9 cmAbrittajoshua Baptiste PA-C Work Phone: [facility]05-07-2025 14:17-0400Body mass index (BMI) [Ratio]48.37 kg/g8EhwptgwFrank Baptiste PA-C Work Phone: [facility]05-07-2025 14:17-0400Body iiuatp206.12 kgFrank Baptiste PA-C Work Phone: [facility]05-07-2025 14:17-0400Diastolic blood mm[Hg]Frank Baptiste PA-C Work Phone: [facility]05-07-2025 14:17-0400Heart rate 91 /minFrank Baptiste PA-C Work Phone: [facility]05-07-2025 14:17-0400Systolic blood mm[Hg]Frank Baptiste PA-C Work Phone: [facility]04-28-2025 14:25-0400Body mass index (BMI) [Ratio]50.79 kg/h5Qwswm Socorro DO Work Phone: [facility] CenterJzexudzjcn58-65-5888 14:25-0400Body .93 kgRuddyy Socorro DO Work Phone: [facility] CenterAaxldmcfic65-49-4995 14:25-0400Diastolic blood kquddgts42 mm[Hg]Calvin Socorro DO Work Phone: [facility] CenterLznqjkodst47-04-9003 14:25-0400Systolic blood iiaqldhe466 mm[Hg]Calvin Quintanilla DO Work Phone: [facility] CenterMlnfmryppn02-03-2860 14:22-0400Body .9 cmBo Dawson MD Work Phone: [facility] [employer] Snwqfa86-42-5551 14:22-0400Body mass index (BMI) [Ratio]48.37 kg/q3UihswkmBo Dawson MD Work Phone: [facility]03-10-2025 14:22-0400Body .12 kgBo Dawson MD Work Phone: [facility]03-10-2025 14:22-0400Diastolic blood ldtfrjmi00 mm[Hg]Bo Dawson MD Work Phone: [facility]03-10-2025 14:22-0400Heart rate 90 /minBo Dawson MD Work Phone: [facility] [employer] Rbguey93-03-9895 14:22-0400Systolic blood ptqmfceg227 mm[Hg]Bo Dawson MD Work Phone: [facility]02-12-2025 12:53-0500Diastolic blood lndeigph53 mm[Hg]Rocael Verhoff PA-C Work Phone: [facility] [employer] Mysyab75-50-6771 12:53-0500Heart rate 95 /minMegan Verhoff PA-C Work Phone: [facility] [employer] Epwlnl47-58-9998 12:53-0500 Respiratory rate16 /minMegan Verhoff PA-C Work Phone: [facility]02-12-2025 12:53-8590UaZ2% (BldA) [Mass fraction]96 %Rocael Verhoff PA-C Work Phone: [facility]02-12-2025 12:53-0500Systolic blood uafkkmbx054 mm[Hg]Rocael Verhoff PA-C Work Phone: [facility] DigitalRejhlc59-84-2977 13:09-0500Body odnvrg312.9 cmMegan Verhoff PA-C Work Phone: [facility] [employer] Vnxmpi03-80-3759 13:09-0500Body mass index (BMI) [Ratio]48.37 kg/c9Kmiil Verhoff PA-C Work Phone: [facility]01-08-2025 13:09-0500Body .12 kgMegan Verhoff PA-C Work Phone: [facility]01-08-2025 13:09-0500Diastolic blood bospulqu322 mm[Hg]Rocael Verhoff PA-C Work Phone: [facility] [employer] Hnmepp29-69-5215 13:09-0500Heart rate 83 /minMegan Verhoff PA-C Work Phone: [facility] [employer] Uzcpxb72-55-3285 13:09-3079PsR8% (BldA) [Mass fraction]97 %Rocael Verhoff PA-C Work Phone: [facility] [employer] Hxysmh98-48-3874 13:09-0500Systolic blood mm[Hg]Rocael Verhoff PA-C Work Phone: [facility]11-05-2024 14:22-0500Body mass index (BMI) [Ratio]48.94 kg/r0Pcwwg Socorro DO Work Phone: [facility] CenterWjwfvnllkt99-58-5864 14:22-050Body ykdzcx178.48 kgCorey Socorro DO Work Phone: [facility] Encounters Encounter DateEncounter TypeCare ProviderFacilityStart: 97-40-2845shlywhacwfMarion Hospitaltart: 08-18-2025 End: 57-31-8091Xwjqno outpatient visit 25 minutesMecatrina Chino Verhoff PA-C Work Phone: [facility] - Pain Management ClinicComment on above:Lumbar spondylosis (Primary Dx); Disorder of sacrumStart: 08-18-2025 End: 32-53-5769ikdgjqkspyTHRDL SOFYMetroHealth Main Campus [facility] Center HospitalStart: 31-24-1246zlfauvqywtBVVKOHLECRC [facility] Hospitaltart: 08-04-2025 End: 15-20-0564lrfyrrtqtkMIBZQXRNRIV [facility] Start: 08-02-2025 End: 05-32-5534Vyuzzhiba Result EncounterCorey Socorro DO Work Phone: noms External Department UnsolicitedStart: 08-02-2025 End: 04-76-5487Hsplqwsee Result EncounterCorey Socorro DO Work Phone: noms External Department UnsolicitedStart: 07-16-2025 End: 03-31-0807crwfkltipbTEKHGPF E HOGANMetroHealth Main Campus Medical Center HospitalStart: 07-02-2025 End: 80-77-5189Bgfxny-up Jeffery Castro MD Work Phone: [facility] - Pain Procedures Comment on above:Bedside Glucose *Place/Obtain serum glucose if >500 per glucometer.Start: 07-02-2025 End: 88-09-3310hzauzlbvlnPKQJAFK E HOGANMetroHealth Main Campus Medical Center HospitalStart: 06-30-2025 End: 08-86-1266iwlzmxvxyyXIZJMMVBGDB [facility] Start: 06-24-2025 End: 30-75-7614EeqqkjEmmc [facility] - Pain Management ClinicStart: 06-10-2025 End: 10-71-7886lbrzzbfqtgKVNCK FAZIONot AvailableStart: 06-09-2025 End: 44-65-0250Mywusq outpatient visit 25 minutesRocael Goetz PA-C Work Phone: [facility] - Pain Management ClinicComment on above:Lumbar spondylosis (Primary Dx)Start: 06-09-2025 End: 66-96-5701dctcvjawqfNXZGY N VERHOFFMetroHealth Main Campus Medical Center HospitalStart: 04-16-2025 End: 01-16-8896ntiwssjbihYPPZC T ABBUniversity Hospitals Elyria Medical Center HospitalStart: 04-16-2025 End: 23-46-1139Undsbc outpatient visit 15 minutesJennifer Ho MD Work Phone: [facility] VascularComment on above: Class 3 severe obesity due to excess calories with body mass index (BMI) of 45.0 to 49.9 in adult ([facility]) (Primary Dx); Venous stasis ulcer of right calf with fat layer exposed with varicose veins ([facility]); Varicose veins of bilateral lower extremities with painStart: 04-06-2025 End: 16-09-6406Oprulanax encounterRocael Goetz PA-C Work Phone: [facility] - Pain Management ClinicStart: 04-01-2025 End: 07-99-5622Tmnsociyl encounterGabby Jones [facility] ClinicStart: 03-31-2025 End: 93-88-0544Vdemhladq Result EncounterCorey Socorro DO Work Phone: noms External Department UnsolicitedStart: 03-31-2025 End: 70-90-5296Tgjuhtjyt Result EncounterCorey Socorro DO Work Phone: noms External Department UnsolicitedStart: 03-24-2025 End: 62-43-7513kmkqghnewvXKCXBONorthern Navajo Medical Center HospitalStart: 03-16-2025 End: 39-87-6714xzfhqkbsznCANXHIJohn Douglas French Center HospitalStart: 03-10-2025 End: 45-20-5290Lssftz outpatient visit 15 minutesRocael Goetz PA-C Work Phone: [place] [address] Pain Management ClinicComment on above:Lumbar spondylosis (Primary Dx); Disorder of sacrumStart: 03-10-2025 End: 81-10-4765nnaxdgigbfTBEMV N VERHOFFSt. John of God Hospitaltart: 03-03-2025 End: 40-08-0648zdeqnirzlkFRRMNSW C [facility] Ambulatory PPG Start: 03-03-2025 End: 36-25-8231Svwwix outpatient visit 15 minutesFrank Baptiste PA-C Work Phone: [facility] FarmtComment on above:Intention tremor (Primary Dx)Start: 02-23-2025 End: 47-49-5516RjvpetNcow [facility] - Pain Management ClinicStart: 02-22-2025 End: 76-50-0880dlyvnrdhwoCVOSR FAZIONot AvailableStart: 02-22-2025 End: 07-28-7824Ounlsg flowsheetCorey Socorro DO Work Phone: noms BCP OBStart: 02-22-2025 End: 19-03-0403Ancedr flowsheetCorey Socorro DO Work Phone: noms BCP OBStart: 02-22-2025 End: 72-37-0710Mmdcggznd Result EncounterCorey Socorro DO Work Phone: noms External Department UnsolicitedStart: 02-22-2025 End: 84-02-8285Meecpkv encounter procedureCorey Socorro DO Work Phone: noms BCP OBComment on above:Well woman exam with routine gynecological exam; Breast cancer screening by mammogram; Hot flashes due to menopauseStart: 01-04-2025 End: 20-78-7958Xmwsea outpatient visit 15 minutesBo Dawson MD Work Phone: [facility] Genito-Urinary SurgeonsComment on above:Kidney stone (Primary Dx); Urge incontinence of urine; Mineral metabolism disorderStart: 01-04-2025 End: 63-15-8320kaeqdapofzQYUZAEF G RASHHeart of the Rockies [facility] PPGStart: 12-30-2024 End: 50-85-8971fyfdtqdwtuRLVHNENZZUBWilson Memorial Hospital Start: 16-61-9672htfquwptcfUMHWGMSMYDJ [facility] Hospitaltart: 12-22-2024 End: 92-91-0389nplknokgjkMBTSWLY Endy [facility] HospitalStart: 12-16-2024 End: 44-34-8578qefymjwjybDGHCCIOYWGICleveland Clinic [facility] Start: 12-09-2024 End: 81-91-9113Gzvnbz outpatient visit 25 minutesRocael Goetz PA-C Work Phone: [facility] - Pain Management ClinicComment on above:Lumbar spondylosis (Primary Dx); Disorder of sacrumStart: 12-09-2024 End: 94-60-1054gkprhjynmeWNCTSHopi Health Care Center HospitalStart: 12-04-2024 End: 21-33-3189Betvfqdbl encounterLaura Kern Medical CentererRockingham Memorial HospitalMedica Physicians [facility] Comment on above:02/10/25 FRANK BAPTISTE RESCHEDULEStart: 11-25-2024 End: 02-39-6010ktsucnetovYZTMGERASROCleveland Clinic Mercy Hospital Start: 11-20-2024 End: 28-13-6760yyoeznrsjyYYUSXGY E HOGANMetroHealth Main Campus Medical Center HospitalStart: 11-04-2024 End: 62-66-5195Pmijqu outpatient visit 25 minutesRocael Goetz PA-C Work Phone: [facility] - Pain Management ClinicComment on above:Lumbar spondylosis (Primary Dx); Disorder of sacrumStart: 11-04-2024 End: 74-73-8362nkcbxbijaqOPCAC Matti [facility] HospitalStart: 10-16-2024 End: 85-94-6674sliowpsjfaVMTMUThe University of Toledo Medical Centertart: 09-28-2024 End: 42-24-1895Ndwrbtqdf Result EncounterCorey Socorro DO Work Phone: noms External Department UnsolicitedStart: 09-28-2024 End: 13-47-5488Qgfnnqzhe Result EncounterCorey Socorro DO Work Phone: noms External Department UnsolicitedStart: 09-21-2024 End: 82-85-7012Pwvzkxfeql and management of inpatientVERN D REYNOLDSProMorrow County Hospital HospitalStart: 09-21-2024 End: 23-16-4113Dkdytrcare and management of inpatientMICHAEL G. RASHIDMetroHealth Main Campus Medical Center HospitalStart: 09-16-2024 End: 91-73-4781ytiyobkzajSZWYH N VERHOFFMetroHealth Main Campus Medical Center HospitalStart: 09-08-2024 End: 09-85-9416kdloixcgkeUOIBTYR G. RASHIDMetroHealth Main Campus Medical Center HospitalStart: 09-08-2024 End: 75-54-3792endzgaoxwmZXJSU T ABBUniversity Hospitals Elyria Medical Center HospitalStart: 09-04-2024 End: 33-28-6504gsetkghfhqRWUKZ NEALMetroHealth Main Campus Medical Center HospitalStart: 09-01-2024 End: 66-42-7533Mgufrf flowsheetCorey Socorro DO Work Phone: noMS BCP OBStart: 09-01-2024 End: 73-22-2694Jtmylw flowsheetCorey Socorro DO Work Phone: noms BCP OBStart: 09-01-2024 End: 41-89-0617Cysjdl outpatient visit 15 minutesCorey Socorro DO Work Phone: noms BCP OBComment on above:Encounter to discuss test results; Osteoporosis, post-menopausal (CMS/HCC)Start: 09-01-2024 End: 12-65-6158ngeatiezkjHUZFS FAZIONot AvailableStart: 08-28-2024 End: 35-23-3858ddqkkvmasdJGTUN [facility] HospitalStart: 08-21-2024 End: 07-83-7445hqzwtgzwcsZLWXQ T [facility] HospitalStart: 08-07-2024 End: 03-06-9567lhyjdwdsadXILHO T [facility] Hospitaltart: 08-04-2024 End: 50-64-0126Wwmedcuyc Result EncounterCorey Socorro DO Work Phone: noms External Department UnsolicitedStart: 08-04-2024 End: 68-60-6189Jxvcyxqmy Result EncounterCorey Socorro DO Work Phone: noms External Department UnsolicitedStart: 07-31-2024 End: 45-01-9911oljuxqdlexFTNNW T [facility] Hospitaltart: 07-30-2024 End: 89-65-4256Qwpzwxfyc Result EncounterCorey Socorro DO Work Phone: noms External Department UnsolicitedStart: 07-30-2024 End: 68-84-2227Mlteqrwxl Result EncounterCorey Socorro DO Work Phone: noms External Department UnsolicitedStart: 07-29-2024 End: 28-84-7605gwaakuxxgtIVMXPHK [facility] Ambulatory PPGStart: 07-01-2024 End: 95-73-6146jdhczyiazzCDSQB [facility] Ambulatory PPGStart: 06-24-2024 End: 86-47-5715svyafygrhbEHLXD [facility] Ambulatory PPGStart: 05-06-2024 End: 52-23-2182jqzzqnieczKDWZO [facility] Ambulatory PPGStart: 05-04-2024 End: 54-28-6125rifyymeznuXWXPNSO [facility] Ambulatory PPGStart: 05-01-2024 End: 21-27-0404ekzqqfqntxKJSIB T [facility] Hospitaltart: 03-12-2023 End: 97-44-1511flovarfxfvEN JENNIFER ABBASFacility:Z8Yehzw: 02-12-2023 End: 83-77-3127xxaogaioazQPTRN FAZIOFacility:V3Yezfg: 07-27-2022 End: 56-67-1581bnwoguoukaNLCNJ FAZIOFacility:W8Lwqqh: 09-27-2021 End: 37-26-7384yzvroqcxdnSJVPR EBRAHEIMFacility:UTMCStart: 02-16-2018 End: 85-10-4715VvecxrrjyqUtpn ProviderFacility:[facility] Centertart: 02-14-2018 End: 94-41-6715BodgyxpuziIjgm ProviderFacility:[facility] Centertart: 11-19-2017 End: 83-88-4877Erkqgrsxu department patient visitMICHAESalvador Farmer PLEWASylviabia Cedars-[facility]inai Medical Centertart: 09-26-2017 End: 49-05-2037GawhwqazrbKCPGLV H BOWSFacility:[facility] Procedures DateProcedureProcedure DetailPerforming ClinicianStart: 04-37-0670Bjqvcz-up visitFollow-upCHRISTOPHER SANFORDStart: 43-88-9068KG TOMOSYNTHESIS SCREENING BI Calvin Socorro DO Work Phone: Start: 26-31-8351SqhxaoxahiwQpasc Socorro DO Work Phone: Start: 18-00-9764RZB CALCIUMCorey Socorro DO Work Phone: Start: 01-33-5736XQM CREATININECorey Socorro DO Work Phone: Start: 85-54-1393Kzhij depression screening assessment Frank Baptiste PA-C Work Phone: Start: 52-46-4679Cwace dip stick/tablet rgnt non-auto w/o micrscpCorey Socorro DO Work Phone: Start: 20-94-3961SNX,APTIMA HPV,AGE GDLNCorey Socorro DO Work Phone: Start: 81-47-6777Blcmqtxnabt observation [Identifier] in Cervix by Cyto stainRocael Goetz PA-C Work Phone: Start: 37-39-2266WYB CALCIUMCorey Socorro DO Work Phone: Start: 76-85-7080ZSB CREATININECorey Socorro DO Work Phone: Start: 16-00-4480ID DEXA AXIAL SKELETONCorey [facility] Work Phone: Start: 60-74-5643FL TOMOSYNTHESIS SCREENING BICorey Socorro DO Work Phone: Start: 76-18-5538NdwlugdnoifGokew [facility] Work Phone: Start: 60-71-9489Czelxm-up visitFollow-upMICHAEL G RASHIDStart: 37-54-2107Vnjbqu-up visitFollow-upJIHAD Ammy ABBASStart: 02-17-2024 Microscopic observation [Identifier] in Cervix by Cyto stainCorey [facility] Work Phone: Start: 14-06-0099Omlo cerv/vag auto thin layer prep mnl screenCorey [facility] Work Phone: Start: 67-74-2742KppzvgaqknnCgqge [facility] Work Phone: Start: 95-19-8038THP CASTMICHAEL PLEWAStart: 60-54-3424RBZAKCRUGGFOQJL PLEWAStart: 96-35-1501Fzbsy ankle complete minimum 3 viewsMICHAEL PLEWA Plan of Treatment DateCare ActivityDetailAuthorStart: 30-77-1183Yuyactpll for malignant neoplasm of colonNOMS HealthcareStart: 32-91-4929Rgxbrlddq for malignant neoplasm of cervixNOMS HealthcareStart: 27-98-9471Buoqwvzfu for malignant neoplasm of cervix Pap SmearProShelby [facility] Health SystemStart: 05-76-0441Kioifitsm for malignant neoplasm of cervixPap SmearProSouthern [facility] SystemStart: 85-13-7787Anfkz BMI ScreeningAdult BMI ScreeningTrinity Health System SystemStart: 29-19-4376Ckgxgyj ScreeningTobacco ScreeningTrinity Health System SystemStart: 40-52-7699Pnalthond for malignant neoplasm of breastMammogramNOMS HealthcareStart: 60-04-6087Lsbqo BMI ScreeningAdult BMI ScreeningProSouthern [facility] Medical Center SystemStart: 17-80-4072Mtksmwd ScreeningTobacco ScreeningProWilson Street Hospitalca [facility] SystemStart: 89-25-4045Efeim BMI ScreeningAdult BMI ScreeningProWilson Street Hospitalca [facility] SystemStart: 04-15-2026 End: 52-99-2290Tufnbxn encounter vkekxukdf57/19/2026 2:00 PM EDT Office Visit [facility] [address] [place] [address] Jennifer Ho MD [address] [place] [address] [facility] VascularStart: 49-49-3750Vyzup BMI ScreeningAdult BMI ScreeningProSouthern [facility] Medical Center SystemStart: 44-24-4258Kxqkpjj ScreeningTobacco ScreeningTrinity Health System SystemStart: 61-06-8300Ydwom BMI ScreeningAdult BMI ScreeningProSouthern [facility] Medical Center SystemStart: 01-06-5994Dcbovairrh ScreeningDepression ScreeningProSouthern [facility] Medical [facility] SystemStart: 03-01-2026 End: 31-77-4774Bxgpmxn encounter procedureNOMS BCP OBStart: 01-12-2026 End: 88-47-3749Dchwfep encounter jhuyafjzv60/18/2026 2:15 PM EDT Office Visit [facility] [address] [place] [address] [place] [address] Bo Dawson MD [address] [place] [address] [facility]-Urinary SurgeonsStart: 11-73-7727Ndyes BMI ScreeningAdult BMI Screening [facility] SystemStart: 91-79-4711Xiatzad ScreeningTobacco Screening [facility] SystemStart: 01-04-2026 End: 33-01-1413BX Abdomen APX-ray abdomen ap 1 view Imaging Routine Kidney stone Expected: 01/04/2026 (Approximate), Expires: 01/04/2027[facility] Work Phone: Comment on above:Expected: 01/04/2026 (Approximate), Expires: 01/04/2027Start: 22-35-7486Yaerlus ScreeningTobacco ScreeningEast Liverpool City Hospitalca [facility] SystemStart: 41-82-0325Svgphme ScreeningTobacco ScreeningEast Liverpool City Hospitalca [facility] SystemStart: 78-20-7884Xitum BMI ScreeningAdult BMI ScreeningTrinity Health System SystemStart: 56-10-5343Rdvbnbq ScreeningTobacco ScreeningEast Liverpool City Hospitalca [facility] System Start: 09-29-2025 End: 99-51-0777Ralvvnz encounter kvqvtvrvi03/03/2025 1:00 PM EST Office Visit [facility] [address] [place] [address] Rocael Goetz PA-C [address] [facility] [place] [address] [facility] - Pain Management ClinicStart: 09-08-2025 End: 96-29-1063Bhofjxv encounter bjgohnwjj56/12/2025 9:45 AM EST Appointment [facility] - MRI Imaging [address] [place] [address] Rocael Goetz PA-C [address] [facility] [place] [address] [facility] - MRI ImagingStart: 08-18-2025 End: 68-30-3113DS Lumbar spine WO contrastMR lumbar spine without contrast Imaging Routine Lumbar spondylosis Disorder of sacrum Expected: 08/18/2025, Expires: 08/18/2026[facility] Work Phone: Comment on above:Expected: 08/18/2025, Expires: 08/18/2026Start: 08-18-2025 End: 69-39-9653Mkkezmj encounter jijxpaowd19/22/2025 1:00 PM EDT Office Visit [facility] [address] [place] [address] Rocael Goetz PA-C [address] [place] [address] [facility] - Pain Management ClinicStart: 72-54-6543Wqyscovhy for malignant neoplasm of breastMammogramNOMS HealthcareStart: 07-16-2025 End: 97-02-2711Wxxslvnyc to same day surgery lnnhcc4307/16/2025 9:30 AM EDT - 07/16/2025 9:41 AM EDT Surgery [facility] - Pain P rocedures [address] [place] [address] Hong Castro MD [address] [place] [address] RADIOFREQUENCY ABLATION SPINAL Left L 4/5, 5/1 [67097 (CPT )][facility] - Pain ProceduresComment on above:RADIOFREQUENCY ABLATION SPINAL Left L 4/5, 5/1 [95909 (CPT )]Start: 07-16-2025 End: 18-71-3661Yvzm nrolytc agnt parverteb fct sngl lmbr/sacralRADIOFREQUENCY ABLATION SPINAL Lumbar spondylosis 07/16/2025 9:30 AM EDTFREMONT PAINStart: 74-37-8716Kqcluxgbek hospital visit by mkehbginh67/19/2025 9:30 AM EDT Hospital Encounter [facility] - Pain Procedures [address] [place] [address] Hong Castro MD [address] [place] [address] [facility] - Pain ProceduresStart: 07-02-2025 End: 27-27-8278Uqgklokah to same day surgery [facility] - Pain ProceduresComment on above:RADIOFREQUENCY ABLATION SPINAL right L 4/5,5/1 [62961 (CPT )]RADIOFREQUENCY ABLATION SPINAL right L 4/5, 5/1 [18414 (CPT )]Start: 07-02-2025 End: 36-87-9408Gkcy nrolytc agnt parverteb fct sngl lmbr/sacralFREMONT PAIN Start: 94-27-2132Tmrwiqbxmh hospital visit by physicianSelect [facility] - Pain ProceduresStart: 90-87-1057NBEZU-19 Vaccine ( season)COVID-19 Vaccine ()[facility] SystemStart: 11-42-9935Kgmmmpegf vaccinationSaint John's Regional Health CenterStart: 06-09-2025 End: 62-18-5108Ugvdivk encounter lonwswtta96/13/2025 1:00 PM EDT Office Visit [facility] [address] [place] [address] Rocael Goetz PAAlessiaC [address] [place] [address] [facility] - Pain Management ClinicStart: 04-16-2025 End: 38-59-2590Qaomdxa encounter procedureGerman [facility] Start: 03-10-2025 End: 13-50-3481Chutdgo encounter znwwzsixi56/14/2025 12:45 PM EDT Office Visit [facility] [address] [place] [address] Rocael Goetz PA-C [address] [place] [address] [facility] Pain Management ClinicStart: 03-03-2025 End: 45-24-5865Fdsgzmb encounter unsuhoesq42/07/2025 2:00 PM EDT Office Visit [facility] [place] [address] [place] [address] Frank Baptiste PA-C [address] [facility] [place] [address] [facility]art: 02-22-2025 End: 78-40-1835ZC Breast - bilateral ScreeningBilateral screening mammogram Imaging Routine Breast cancer screening by mammogram Expected: 02/22/2025, Expires: 04/24/2026[facility] Work Phone: comment on above:Expected: 02/22/2025, Expires: 04/24/2026Start: 02-22-2025 End: 93-61-9142Yzmuzla encounter yhdcocnqj34/28/2025 2:00 PM EDT Office Visit [facility] [address] [facility] [place] [address] Calvin Quintanilla, DO [address] [place] [address] [facility] BCP OBStart: 02-10-2025 End: 42-02-8621Oxbdxzt encounter otbflzkhu06/16/2025 1:30 PM EDT Office Visit [facility] [address] [place] [address] [address] [facility] [place] [address] Frank Baptiste PA-C [address] [facility] [place] [address] [facility] Start: 01-04-2025 End: 22-86-6454Bdbczkw encounter fbqacamul47/10/2025 2:15 PM EDT Office Visit [facility] [address] [place] [address] [place] [address] Bo Dawson MD [address] [place] [address] [facility]icians Genito-Urinary SurgeonsStart: 12-09-2024 End: 43-82-6900Tjrolwv encounter /12/2025 12:30 PM EST Office Visit [facility] [address] [place] [address] Rocael Goetz, JITENDRA [address] [place] [address] [facility] - Pain Management ClinicStart: 11-20-2024 End: 28-73-7513Xdjkjzvig to same day surgery pltsks6711/20/2024 10:52 AM EST - 11/20/2024 10:57 AM EST Surgery [facility] - Pain Procedures [address] [facility] [address] Hong Castro MD [address] [address] INJECTION BLOCK SACROILIAC JOINT Bilateral SI JointSelect [facility] Specialty [facility] - Pain ProceduresComment on above:INJECTION BLOCK SACROILIAC JOINT Bilateral SI JointStart: 11-20-2024 End: 45-59-2106ZNNENBKWL BLOCK SACROILIAC JOINTINJECTION BLOCK SACROILIAC JOINT Disorder of sacrum 11/20/2024 10:52 AM [facility] SystemStart: 69-99-2918Quacycgaiy hospital visit by ciunpjbfw50/24/2025 10:52 AM EST Hospital Encounter [facility] - Pain Procedures [address] [place] [address] Hong Castro MD [address] [place] [address] [facility] - Pain ProceduresStart: 40-52-3273HJWPW-19 Vaccine ( season) COVID-19 Vaccine (2023- season)[facility] SystemStart: 06-28-2024 Influenza vaccinationSaint John's Regional Health CenterStart: 66-46-3965MDsS,Tdap and Td Vaccines (2 - Td or Tdap)DTaP,Tdap and Td Vaccines (2 - Td or Tdap)[facility] SystemStart: 87-67-8037LJfZ,Tdap and Td Vaccines (3 - Td or Tdap)DTaP,Tdap and Td Vaccines (3 - Td or Tdap)[facility] SystemStart: 2020 Administration of varicella zoster vaccineZoster (Shingles) Vaccine (1 of 2) [facility] SystemStart: 26-62-9865Opwsf BMI Follow Up PlanAdult BMI Follow Up PlanSwain Community Hospitaltart: 28-02-7431Uunvyppbzi ScreeningDepression ScreeningProDayton Osteopathic Hospitaltart: 08-26-9151Aouoxbcte for malignant neoplasm of colonSaint John's Regional Health CenterTHIN PREP TIS PAP AND HR HPV DNATHIN PREP TIS PAP AND HR HPV DNA Pathology and Cytology Routine Well woman exam with routine gynecological exam Ordered: 02/22/2025Saint John's Regional Health CenterComment on above:Ordered: 02/22/2025 Immunizations Immunization DateImmunizationNotesCare KvapnsxqSxhrdpmo88-89-4574Medshbouembe Conjugate 20-valentMegan Sofy HAM Work Phone: [facility] HospitalLvtlhp73-25-7158jeyovrlfm virus vaccine, unspecified formulationCalvin Quintanilla DO Work Phone: [facility] Payers DatePayer CategoryPayerPolicy ID2025Medicare (Managed Care)[employer] [id number] 2025Medicare O[employer] MEDICARE Member Subscriber Plan / Payer (Effective 2024-Present) Name: Nikole Banerjee Relation to Subscriber: Self Name: Nikole Banerjee Payer ID: [id number] (NAIC) Group ID: [id number] Type: Not on file Address: [address] [place] [id number] 2025Medicare [id number] Care O (unspecified)AET Member Subscriber Plan / Payer (Effective 2023-2024) Name: Nikole Banerjee Relation to Subscriber: Self Name: Nikole Banerjee Payer ID: 1 (NAIC) Type: O Address: [address] [place] [id number] [id number] 2023Medicaid [id number]'s Compensation [id number]'s Comp Other Managed CareFARREN [facility]OR[facility] [id number]95-75657385-81-0449 [id number] 2.16.840.1.321918.3.57[id number] 2.16.840.1.319575.3.57[id number] 2.16.840.1.372100.3.579.2.25092-43-1740Ycbpecz4503438 2..840.1.706647.3.579.2.09498-67-1436Koweows878101652 2..840.1.329353.3.579.2.949177-91-4178Ucutcgw248283610 2..840.1.335149.3.579.2.356017-15-5210Kmxvqmu98210760 2..840.1.985870.3.579.2.566439-41-5052Whbxald80063851 2..840.1.042876.3.579.2.907895-39-3029Wexwqds71006203 2..840.1.085383.3.579.2.082389-13-9644Uigzljf94271803 2..840.1.356946.3.579.2.195768-07-6759Mdbqawf95080754 2.16.840.1.770982.3.579.[id number] 2.16.840.1.168428.3.579.2.104508-18-2108Mwsrxwt48553656 2.16.840.1.843319.3.579.2.342401-74-9998Vczzxab021539504 2.16.840.1.487348.3.579.2.626722-00-3986Igazpyl38928241 2.16.840.1.462039.3.57[id number] 2.16.840.1.606831.3.579.2.514546-11-0482Fimgznf44326471 2.16.840.1.585704.3.579.2.263593-11-5703Ilohkhp90840074 2..840.1.145306.3.579.2.735218-81-4391Iuljweg25631070 2.0.1.328784.3.579.2.627892-60-6023Poohptb73988639 2.0.1.325739.3.579.2.344353-26-5091Aduxgxj41160727 2.840.1.708840.3.579.2.696989-75-5340Tbxnyih0226073 2.840.1.270042.3.579.2.419114-25-7834Ujznjil6592749 2.840.1.467001.3.579.2.197378-27-1810Hrmjrat743450195 2.840.1.876963.3.579.2.405211-70-3502Cnrztfc805594026 2..840.1.542134.3.579.2.457343-94-8285Ssawnjn163596110 2..840.1.863126.3.579.2.360864-95-6297Coyfvqc662467288 2..840.1.093557.3.579.2.236530-86-6353Wpwcxuh033276119 2.16.840.1.313466.3.579.2.250944-17-3172Gposoxk765673833 2.16.840.1.425797.3.579.2.633912-11-3994Qkoaxge618432503 2.16.840.1.404958.3.579.2.054382-51-6726Inrrlak490507201 2.16.840.1.925272.3.579.2.122967-15-2950Tazlynu633662312 2..840.1.024756.3.579.2.018815-60-6681Tgpvjwn639466495 2.840.1.994903.3.579.2.407390-73-0463Bkxhjsx642055133 2.840.1.587167.3.579.2.552322-52-7048Lubwznl579341203 2.840.1.715035.3.579.2.657972-41-0067Hvglayw726871865 2.840.1.909047.3.57[id number] 2.840.1.400831.3.579.[id number] 2.840.1.715976.3.57[id number] 2.840.1.399462.3.57[id number] 2.840.1.736412.3.579.2.2[id number] 2..840.1.316098.3.579.2.9[id number] 2.840.1.626402.3.579.[id number] 2..840.1.208002.3.579.[id number] 2..840.1.147356.3.57[id number] 2..840.1.500619.3.579.2.1286 [id number] Social History DateTypeDetailFacilityTobacco smoking status NHISTobacco smoking consumption unknownSaint John's [facility] CenterStart: 43-33-2700Knu assigned at birthNot on [facility]Start: 11[facility]10[facility]2020 End: 99-42-9869Vtkezb identityNot on [facility] SystemStart: 06-03-2024 End: 26-96-0194Cynzngb smoking status NHISEx-smokerTrinity Health System SystemStart: 48-17-1158Thgjrva of tobacco useCurrent smokerSwain Community Hospitaltart: 54-82-7228Mqcurvt of tobacco useCigarette SmokerTrinity Health System SystemStart: 11-10-2020 End: 54-25-0786Lozikkohnq smoked current (pack per day) - I[address]xy[address] [place], [place] [address]History of tobacco usePassive smokerTrinity Health System SystemStart: 06-03-2024 End: 25-17-1667Onujpig use and exposureSmokeless tobacco non-userSwain Community Hospitaltart: 11-04-2024 End: 51-73-8644Ffewqmsnk beverage intakeCurrent non-drinker of alcohol (finding) [facility] Satellogic SystemHas the [employer], gas, oil, or water company threatened to shut off services in your home in past 12MoNNovant Health Presbyterian Medical Centertart: 47-54-8468Pu the past 12 months, has lack of transportation kept you from medical appointments or from getting medications?[facility] SystemStart: 24-46-1507YruBriyij (finding)[facility] Digital Goals DatePatient GoalDesired Activity/StatePersonal health goalComment on above: Evaluation of progress towards goal: Patient plans to return home on oral antibiotics. Clinical Notes 08-04-2024 to 08-20-2025 Note Date & [id number] NoteLarge joint: L knee on 08/20/2025 10:33 AM Indications: pain Details: 22 G needle, lateral approach Medications: 25 mg sodium hyaluronate (Supartz FX) 10 mg/mL; 4 mL lidocaine HCl 10 mg/mL (1 %) Outcome: tolerated well, no immediate complications Given third of 3 Supartz injections, tolerated well. Follow up in 6 months. [facility]10-22-2025 History of Present illness Narrative* Rocael Goetz PA-C - 08/18/2025 1:00 PM EDT [facility] [address] [place] [address] Patient: Nikole Banerjee Sex: female : 1970 Age: 54 y.o. 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 Date of onset of pain: 01/2021, pain has lasted greater than 3 months. Pain scale before treatment: 8/10 Percentage and duration of relief after treatment: 40% Pain scale after treatment: 5/10 Chief Complaint Patient presents with Back Pain HPI: May 2024- present PT x3/week with 3 viists to go and continued HEP- No relief Noé L4/5,5/1 MBB w/90% relief. 06/02/21 Noé L4/5,5/1 MBB w/90% relief. 08/18/2021 Bilat L4/5 5/1 MBB with 100% relief. 11/10/21 Left L4/5, 5/1 RFA with at least 50-60% pain relief and significant improvement in physicalfunctioning 06/08/22 Right L 4/5 5/1 RFA with [...] up 11/20/2024 bilateral sacroiliac joint injection with 60- 80% pain relief Back Pain This is a chronic problem. The current episode started more than 1 year ago (January 2021). The problem occurs constantly. The problem has been gradually improving since onset. The pain is present in the lumbar spine (middle). The quality of the pain is described as aching. The pain does not radiate.The pain is at a severity of 5/10. The pain is moderate. The pain is Worse during the day. Exacerbated by: standing, walking, stairs, bending, lifting, lying, twisting, leaning. Stiffness is present:n/a. Associated symptoms include numbness (LLE intermittently posterior to toes; RLE anterior knee to toes), tingling (LLE intermittently posterior to toes RLE; anterior knee to toes) and weakness (BLE). Pertinent negatives include no abdominal pain, bladder incontinence, bowel incontinence, chest pain, fever or leg pain. Risk factors include obesity, sedentary lifestyle and lack of exercise. Shehas tried heat (Tylenol, NSAIDs(Ibuprofen, Mobic) w/min relief, Flexeril w/no relief; Bossman w/adversereaction, Gadsden w/mod relief. Cymbalta w/mod relief, Aquatic/PT 2022 w/min relief) for the symptoms. The treatment provided moderate relief. The effect of pain on patient's ADLS: Moderate Impairment. Past Medical History: Diagnosis Date Asthma Bilateral flank pain Bladder spasm Bleeding from varicose vein Breast lesion marker right breast Bronchitis Cellulitis 07/07/2024 Pt. was admitted into the hospital for cellulitis of the right lower extremity. Chronic pain disorder COPD (chronic obstructive pulmonary disease) ([facility]) Depression Disc disease, degenerative, lumbar or lumbosacral DVT (deep venous thrombosis) ([facility]) 1995 right leg Edema GERD (gastroesophageal reflux [...] 10/17/2023 Performed by Bo Slaughter DO at [facility] CYST REMOVAL Left arm- pt unsure of when CYSTOSCOPY N/A 06/24/2023 Performed by Bo Dawson MD at [facility] CYSTOSCOPY REMOVAL STENT Left 10/09/2021 Performed by Bo Dawson MD at [facility] CYSTOSCOPY RETROGRADE PYELOGRAM Bilateral 06/24/2023 Performed by Bo Dawson MD at [facility] CYSTOSCOPY RETROGRADE PYELOGRAM Bilateral 09/18/2021 Performed by Bo Dawson MD at [facility] ENDOSCOPIC RELEASE CARPAL TUNNEL Left 12/14/2020 Performed by Aung Miller MD at [facility] ENDOVENOUS LASER ABLATION VEIN Right 06/14/2023 Performed by Jennifer Ho MD at [facility] EXTRACORPOREAL SHOCK WAVE LITHOTRIPSY EXTRACORPOREAL SHOCK WAVE LITHOTRIPSY Left 09/21/2024 Performed by Bo Dawson MD at [facility] EXTRACORPOREAL SHOCK WAVE LITHOTRIPSY Left 02/06/2021 Performed by Bo Dawson MD at [facility] EXTRACORPOREAL SHOCK WAVE LITHOTRIPSY Left 11/16/2020 Performed by Bo Dawson MD at [facility] EXTRACORPOREAL SHOCK WAVE LITHOTRIPSY Left 03/12/2018 Performed by Bo Dawson MD at [facility] EXTRACORPOREAL SHOCK WAVE LITHOTRIPSY Left 12/18/2017 Performed by Bo Dawson MD at [facility] EXTRACORPOREAL SHOCK WAVE LITHOTRIPSY / SIDE WILL BE CHOOSEN DAY OF PROCEDURE Right 06/17/2024 Performed by Bo Dawson MD at [facility] INJECTION BLOCK NERVE MEDIAL BRANCH bilat L 4/5,5/ Bilateral 08/18/2021 Performed by Hong Castro MD at [facility] INJECTION BLOCK NERVE MEDIAL BRANCH bilat L 4/5,02/25 Bilateral 06/02/2021 Performed by Hong Castro MD at [facility] INJECTION BLOCK SACROILIAC JOINT Bilateral 11/20/2024 Performed by Hong Castro MD at [facility] INJECTION BLOCK SACROILIAC JOINT Bilateral 09/27/2023 Performed by Hong Castro MD at [facility] INJECTION BLOCK SACROILIAC JOINT Bilateral 05/03/2023 Performed by Hong Castro MD at [facility] LASER HOLMIUM URETEROSCOPY RENAL STONES < OR=1CM Left 09/18/2021 Performed by Bo Dawson MD at [facility] PHLEBECTOMY Right 06/14/2023 Performed by Jennifer Ho MD at [facility] PLANTAR'S WART EXCISION Left foot RADIOFREQUENCY ABLATION SPINAL Left L 4/5, 5/ Left 07/16/2025 Performed by Hong Castro MD at [facility] RADIOFREQUENCY ABLATION SPINAL Left L 4/5, 5/ Left 03/27/2024 Performed by Hong Castro MD at [facility] RADIOFREQUENCY ABLATION SPINAL right L 4/5, 5/1 Right 07/02/2025 Performed by Hong Castro MD at [facility] RADIOFREQUENCY ABLATION SPINAL Right L 4/5, 5/1 Right 03/06/2024 Performed by Hong Castro MD at [facility] RADIOFREQUENCY ABLATION SPINAL Left L 4/5,5/1 Left 02/15/2023 Performed by Hong Castro MD at [facility] RADIOFREQUENCY ABLATION SPINAL Left L 4/5,5/1 Left 11/10/2021 Performed by Hong Castro MD at [facility] RADIOFREQUENCY ABLATION SPINAL Right L 4/5,5/1 Right 06/08/2022 Performed by Hong Castro MD at [facility] Allergies Allergen Reactions Gabapentin Swelling Facial, legs, [...] on file Food Insecurity: No Food Insecurity (08/18/2025) Hunger Screening Food Insecurity - Worry: Never True Food Insecurity - Inability: Never True Transportation Needs: No Transportation Needs (07/08/2024) PRAPARE - Transportation Lack of Transportation (Medical): No Lack of Transportation (Non-Medical): No Physical Activity: Not on file Stress: Not on file Social Connections: Not on file Interpersonal Safety: Unknown (08/11/2025) Received from [facility] Humiliation, Afraid, Rape, and Kick questionnaire Within the last year, have you been afraid of your partner or ex-partner?: No Emotionally Abused: Not on file Physically Abused: Not on file Sexually Abused: Not on file Housing Instability: Low Risk (07/08/2024) Housing Instability Housing Instability: No Review of Systems Constitutional: Negative. Negative for chills, fatigue and fever. HENT: Negative. Eyes: Negative. Respiratory: Negative. Negative for cough and shortness of breath. Cardiovascular: Negative. Negative for chest pain and palpitations. Gastrointestinal: Negative. Negative for abdominal pain and bowel incontinence. Endocrine: Negative. Genitourinary: Negative. Negative for bladder incontinence. Musculoskeletal: Positive for back pain. Negative for gait problem. Skin: Negative. Negative for rash and wound. Allergic/Immunologic: Negative. Neurological: Positive for tingling (LLE intermittently posterior to toes RLE; anterior knee to toes), weakness (BLE) and numbness (LLE intermittently posterior to toes; RLE anterior knee to toes). Hematological: Negative. Psychiatric/Behavioral: Negative. Negative for self-injury and suicidal ideas. Vital Signs: BP 145/80 (BP Site: Left Arm, BP Postition: Sitting) Pulse 95 Resp 20 Ht 154.9 cm (5' 1 ) Wt 121.1 kg (267 lb) BMI 50.45 kg/m Physical Exam: GENERAL - Healthy patient [...] during discussion, demonstrated appropriate cognitive reasoning and understandingof the medical condition by asking appropriate questions [...] spine and paraspinal musculature. Pain is elicited withflexion, extension, and lateral rotation of the lumbar [...] orders for this visit: Lumbar spondylosis - MR lumbar spine without contrast; Future Disorder of sacrum - MR lumbar spine without contrast; Future Lumbar spine MRI - It is felt that additional diagnostic testing is necessary to further evaluate the patients currentpain pathology. For this reason, we will order additional imaging noted above. It is hopeful that this study will identify a significant pain generator that will be amenable to therapy. It is felt that this modality is necessary due to the severity and chronicity of symptoms and physical exam findings combined with the lack of recent imaging of the area. An MRI is specifically felt to be necessary due to the physical exam findings noted above and the patient s description of refractory pain in a neuropathic distribution that is not relieved by change in body position and interferes with the patient s activities of daily living Follow up after MRI The medications I have prescribed have been [...] monitoring for toxicity We do not currently prescribeany controlled substance from this practice. The spine model was demonstrated and MRI was reviewed and used to explain the condition. Chronic conditions not treated during this visit that affected my overall medical decision making: Obesity OARRS: Reviewed. Scribe Statement: IRosalind CNA, scribed for and in the presence of ROCAEL GOETZ PA-C who performed the above service. Rosalind Peña CNA 08/18/25 1505 Rocael Goetz PA-C 08/23/25 1105 documented in this encounterEast Liverpool City HospitalCivilGEO Oaklawn [id number] Instructions* Patient Instructions* Rosalind Peña CNA - 08/18/2025 1:00 PM EDT Once your testing is scheduled, please call [facility] at to schedule a follow up to discuss your results. documented in this encounterEast Liverpool City HospitalCivilGEO Oaklawn [id number] NoteLarge joint: L knee on 08/11/2025 1:35 PM Details: 21 G needle, lateral approach Medications: 4 mL lidocaine HCl 10 mg/mL (1 %); 25 mg sodium hyaluronate (Supartz FX) 10 mg/mL Outcome: tolerated well, no immediate complications Given left knee injection of supartz today, tolerated well. Follow up in one week for third round.[facility] 08-04-2025 NoteLarge joint: L knee on 08/04/2025 11:35 AM Indications: pain Details: 21 G needle, lateral approach Medications: 4 mL lidocaine HCl 10 mg/mL (1 %); 25 mg sodium hyaluronate (Supartz FX) 10 mg/mL Outcome: tolerated well, no immediate complications Given left knee injection of supartz today, tolerated well. Follow up in one week for second round.[facility] 06-30-2025 NoteOrthopedic Surgery Visit Description: Return visit Subjective Chief complaint: Chronic L knee pain 06/30/25 Nikole Banerjee is a 54 y.o. female presenting for chronic L knee pain. She is a [facility] patient that has had this issue for [...] for the above reason. She is a [facility] patient that we have been following for this issue for some time. We previously injected her L knee with Supartz in May 1x and planned to do shot number 2 [...] for injection only visit. Reji Byrd, MS-3 [facility] 06/30/25 10:26 AM As the teaching physician, I have personally performed or re-performed the history of present illness, physical exam and medical decision-making activities of the encounter and verified the medical student's documentation. I made pertinent changes as necessary to ensure accurate documentation. There may be additional comments below. [facility]08-28-2025 Miscellaneous Notes* Telephone Encounter - Candace Carmichael RN - 06/24/2025 1:09 PM EDT Last Office Visit: 06/09/2025 Next Office Visit: 08/18/2025 Last Urine Drug Screen: No results found for: BENZOSCRN OARRS appropriate documented in this encounterMercy Health [facility]08-28-2025 Telephone encounter Note* Telephone Encounter - Candace Carmichael RN - 06/24/2025 1:09 PM EDT Last Office Visit: 06/09/2025 Next Office Visit: 08/18/2025 Last Urine Drug Screen: No results found for: BENZOSCRN OARRS appropriate [facility] Satellogic [id number] History of Present illness Narrative* Rocael Goetz PA-C - 06/09/2025 1:00 PM EDT [facility] [address] [place] [address] Patient: Nikole Banerjee Sex: female : 1970 Age: 54 y.o. PCP: DIANA MICHELE, SHERIE-MERGERS AND ACQUISITIONS MANAGER 06/09/2025 Nikole Banerjee is here for a(n) [...] 50-60% pain relief and significant improvement in physicalfunctioning 06/08/22 Right L 4/5 5/1 RFA with [...] up 11/20/2024 bilateral sacroiliac joint injection with 60- 80% pain relief Back Pain This is a [...] 10/10 with activity). The pain is moderate. Thepain is Worse during the day. Exacerbated by: standing, walking, stairs, bending, lifting, lying, twisting, leaning. Associated symptoms include numbness (LLE intermittently posterior to toes RLE anterior knee to toes), tingling (LLE intermittently posterior to toes RLE anterior knee to toes) and we akness (BLE). Pertinent negatives include no abdominal pain, bladder incontinence, bowel incontinence, chest pain, fever or leg pain. Risk factors include obesity, sedentary lifestyle and lack of exercise. She has tried heat (Tylenol, NSAIDs(Ibuprofen, Mobic) w/min relief, Flexeril w/no relief; Bossman w/adverse reaction, [place]den w/mod relief. Cymbalta w/mod relief, Aquatic/PT 2022 w/min relief) for the symptoms. The treatment provided moderate relief. The effect of pain on patient's ADLS: Moderate Impairment. Past Medical History: Diagnosis Date Asthma Bilateral flank pain Bladder spasm Bleeding from varicose vein Breast lesion marker right breast Bronchitis Cellulitis 07/07/2024 Pt. was admitted into the hospital for cellulitis of the right lower extremity. Chronic pain disorder COPD (chronic obstructive pulmonary disease) ([facility]) Depression Disc disease, degenerative, lumbar or lumbosacral DVT (deep venous thrombosis) ([facility]) 1995 right leg Edema GERD (gastroesophageal reflux [...] 10/17/2023 Performed by Bo Slaughter DO at [facility] CYST REMOVAL Left arm- pt unsure of when CYSTOSCOPY N/A 06/24/2023 Performed by Bo Dawson MD at [facility] CYSTOSCOPY REMOVAL STENT Left 10/09/2021 Performed by Bo Dawson MD at [facility] CYSTOSCOPY RETROGRADE PYELOGRAM Bilateral 06/24/2023 Performed by Bo Dawson MD at [facility] CYSTOSCOPY RETROGRADE PYELOGRAM Bilateral 09/18/2021 Performed by Bo Dawson MD at [facility] ENDOSCOPIC RELEASE CARPAL TUNNEL Left 12/14/2020 Performed by Aung Miller MD at [facility] ENDOVENOUS LASER ABLATION VEIN Right 06/14/2023 Performed by Jennifer Ho MD at [facility] EXTRACORPOREAL SHOCK WAVE LITHOTRIPSY EXTRACORPOREAL SHOCK WAVE LITHOTRIPSY Left 09/21/2024 Performed by Bo Dawson MD at [facility] EXTRACORPOREAL SHOCK WAVE LITHOTRIPSY Left 02/06/2021 Performed by Bo Dawson MD at [facility] EXTRACORPOREAL SHOCK WAVE LITHOTRIPSY Left 11/16/2020 Performed by Bo Dawson MD at [facility] EXTRACORPOREAL SHOCK WAVE LITHOTRIPSY Left 03/12/2018 Performed by Bo Dawson MD at [facility] EXTRACORPOREAL SHOCK WAVE LITHOTRIPSY Left 12/18/2017 Performed by Bo Dawson MD at [facility] EXTRACORPOREAL SHOCK WAVE LITHOTRIPSY / SIDE WILL BE CHOOSEN DAY OF PROCEDURE Right 06/17/2024 Performed by Bo Dawson MD at [facility] INJECTION BLOCK NERVE MEDIAL BRANCH bilat L 4/5,5 Bilateral 08/18/2021 Performed by Hong Castro MD at [facility] INJECTION BLOCK NERVE MEDIAL BRANCH bilat L 4/5,/ Bilateral 06/02/2021 Performed by Hong Castro MD at [facility] INJECTION BLOCK SACROILIAC JOINT Bilateral 11/20/2024 Performed by Hong Castro MD at [facility] INJECTION BLOCK SACROILIAC JOINT Bilateral 09/27/2023 Performed by Hong Castro MD at [facility] INJECTION BLOCK SACROILIAC JOINT Bilateral 05/03/2023 Performed by Hong Castro MD at [facility] LASER HOLMIUM URETEROSCOPY RENAL STONES < OR=1CM Left 09/18/2021 Performed by Bo Dawson MD at [facility] PHLEBECTOMY Right 06/14/2023 Performed by Jennifer Ho MD at [facility] PLANTAR'S WART EXCISION Left foot RADIOFREQUENCY ABLATION SPINAL Left L 4/5, 5/ Left 03/27/2024 Performed by Hong Castro MD at [facility] RADIOFREQUENCY ABLATION SPINAL Right L 4/5, 5/ Right 03/06/2024 Performed by Hong Castro MD at [facility] RADIOFREQUENCY ABLATION SPINAL Left L 4/5,5/1 Left 02/15/2023 Performed by Hong Castro MD at [facility] RADIOFREQUENCY ABLATION SPINAL Left L 4/5,5/1 Left 11/10/2021 Performed by Hong Castro MD at [facility] RADIOFREQUENCY ABLATION SPINAL Right L 4/5,5/1 Right 06/08/2022 Performed by Hong Castro MD at [facility] Allergies Allergen Reactions Gabapentin Swelling Facial, legs, [...] Interpersonal Safety: Unknown (11/25/2024) Received from [facility] Humiliation, Afraid, Rape, and Kick questionnaire Fear of Current or Ex-Partner: No Emotionally Abused: Not on file Physically Abused: Not on file Sexually Abused: Not on file Recent Concern: Interpersonal Safety - At Risk (11/25/2024) Received from [facility] Humiliation, Afraid, Rape, and Kick [...] during discussion, demonstrated appropriate cognitive reasoning and understandingof the medical condition by asking appropriate questions [...] spine and paraspinal musculature. Pain is elicited withflexion, extension, and lateral rotation of the lumbar [...] operating room: RADIOFREQUENCY ABLATION SPINAL right L 4/5,5/ - Case request operating room: RADIOFREQUENCY ABLATION [...] procedure was described in detail to the patientas well as the potential benefits of pain [...] with application of heat and over the counterpain relievers. Follow up 2 weeks after procedure [...] as to the type of medication prescribed alongwith directions for use. Potential side effects have [...] monitoring for toxicity We do not currently prescribeany controlled substance from this practice. It is noted that the patient did have good response from the previously performed procedure. It is felt that the patient would benefit from an additional procedure of the same nature in that the samesymptoms have returned. It is hopeful that this [...] the above service. Rosalind Peña CNA 06/09/25 1324 Rocael Goetz PA-C 06/09/25 1340 documented in this encounterMercy Health Fairfield Hospital08-13-2025 Instructions* Patient Instructions* Rosalind Peña, SUPERVISOR GLYCERIN - 06/09/2025 1:00 PM EDT Radiofrequency Ablation (RFA) Radiofrequency ablation (or RFA) is a procedure used to reduce pain. An electrical current producedby a radio wave is used to heat up a small area of nerve tissue, thereby decreasing pain signals from that specific area. Which Conditions Are Treated With Radiofrequency Ablation? RFA can be used to help patients with chronic (long-lasting) back and neck pain and pain related tothe degeneration of joints from arthritis. How Long Does Pain Relief from Radiofrequency Ablation Last? The degree of pain relief varies, depending on the cause and location of the pain. Pain relief fromRFA can last from six to 12 months [...] take you to the nearest emergency room. Tellthe emergency room staff that you just had [...] it back to normal. documented in this encounterMercy Health Fairfield Hospital06-20-2025 History of Present illness Narrative* Jennifer Ho MD - 04/16/2025 2:10 PM EDT CHIEF COMPLAINT: Chief Complaint Patient presents with Venous stasis dermatitis and venous stasis ulceration. Right knee pain 6/10 pain scale tylenol does not help HISTORY OF PRESENT ILLNESS: Nikole Banerjee is a 54 y.o. female who presents to the office today for evaluation of Right lower extremity venous insufficiency with venous stasis dermatitis and ulcerations. Patient is all healed.Patient has no problems with any redness or [...] mouth nightly Indications: controller medication for asthma. eppredlv-udlv-HB-calcium &mins (THERAGRAN-M) 9 mg iron-400 mcg tablet Take 1 tablet by mouth inthe morning. omega 0-cje-gyj-fish oil (Fish OiL) 300-1,000 mg capsule Take [...] (BMI) of 45.0 to 49.9 in adult ([facility]) Venous stasis ulcer of right calf with fat layer exposed with varicose veins ([facility]) Varicose veins of bilateral lower extremities with pain Patient appears to be doing well. I gave her another prescription for thigh-high compression stockings. I will see her back on an as-needed basis. documented in this encounterMercy Health Fairfield Hospital06-10-2025 Miscellaneous Notes* Telephone Encounter - Reena Rodriges - 04/06/2025 9:54 AM EDT Pt called to notify office that her OBGYN changed a prescription she is currently taking to Bupropion XL 150 mg. Due to interactions with current meds being prescribed by us. * Telephone Encounter - Rocael Goetz PA-C - 04/06/2025 9:54 AM EDT noted documented in this [facility]06-10-2025 Telephone encounter Note* Telephone Encounter - Reena Rodriges - 04/06/2025 9:54 AM EDT Pt called to notify office that her OBGYN changed a prescription she is currently taking to Bupropion XL 150 mg. Due to interactions with current meds being prescribed by us. [facility]06-10-[facility] Telephone encounter Note* Telephone Encounter - Rocael Goetz PA-C - 04/06/2025 9:54 AM EDT noted [facility] [id number] Miscellaneous Notes* Telephone Encounter - Gabby Jones RN - 04/01/2025 4:42 PM EDT Patient called office today to report that she was advised that there is a high risk of medication interaction between Duloxetine and Citalopram. Duloxetine is a chronic medication prescribed for patient for her pain. Patient states that her OBGYN recently prescribed Citalopram to treat hot flashes. Patient is advised that the two medications should not be taking concurrently. She is also advisedthat she can inform the OBGYN of this significant interaction warning and ask to be prescribed something else. Patient states she will contact her OB-BALLASTER. * Telephone Encounter - Sumaya Lowry CNA - 04/01/2025 4:42 PM EDT Patient called to report that Dr Quintanilla switched her Citalopram to another medication. She does not know the name as she has not picked it up yet. Nikole will call so her med list can be updated * Telephone Encounter - Rocael Goetz PA-C - 04/01/2025 4:42 PM EDT noted documented in this encounterMercy Health [facility] Hospital06-05-2025 Telephone encounter Note* Telephone Encounter - Gabby Jones RN - 04/01/2025 4:42 PM EDT Patient called office today to report that she was advised that there is a high risk of medication interaction between Duloxetine and Citalopram. Duloxetine is a chronic medication prescribed for patient for her pain. Patient states that her OBGYN recently prescribed Citalopram to treat hot flashes. Patient is advised that the two medications should not be taking concurrently. She is also advisedthat she can inform the OBGYN of this significant interaction warning and ask to be prescribed something else. Patient states she will contact her OB-BALLASTER. [facility]06-05-2025 Telephone encounter Note* Telephone Encounter - Sumaya Lowry CNA - 04/01/2025 4:42 PM EDT Patient called to report that Dr Quintanilla switched her Citalopram to another medication. She does not know the name as she has not picked it up yet. Nikole will call so her med list can be updated [facility]06-05-2025 Telephone encounter Note* Telephone Encounter - Rocael Goetz PA-C - 04/01/2025 4:42 PM EDT noted [facility]05-14-2025 History of Present illness Narrative* Rocael Goetz PA-C - 03/10/2025 12:45 PM EDT [facility] [address] [place] [address] Patient: Nikole Banerjee Sex: female : 1970 Age: 54 y.o. PCP: MARCUS AMADOR APRN-DAVID 03/10/2025 Nikole Banerjee is here for a(n) 3 month follow [...] 50-60% pain relief and significant improvement in physicalfunctioning 06/08/22 Right L 4/5 5/1 RFA with [...] up 11/20/2024 bilateral sacroiliac joint injection with 60- 80% pain relief Back Pain This is a [...] symptoms include numbness (LLE intermittently), tingling (LLE- i ntemittently) and weakness (LLE). Pertinent negatives include no abdominal pain, bladder incontinence, bowel incontinence, chest pain, fever or leg pain. Risk factors include obesity, sedentary lifestyle and lack of exercise. She has tried heat (Tylenol, NSAIDs(Ibuprofen, Mobic) w/min relief, Flexeril w/no relief; Bossman w/adverse reaction, Gadsden w/mod relief. Cymbalta w/mod relief, Aquatic/PT 23 w/min relief) for the symptoms. The treatment provided moderate relief. The effect of pain on patient's ADLS: Moderate Impairment. Past Medical History: Diagnosis Date Asthma Bilateral flank pain Bladder spasm Bleeding from varicose vein Breast lesion marker right breast Bronchitis Cellulitis 07/07/2024 Pt. was admitted into the hospital for cellulitis of the right lower extremity. Chronic pain disorder COPD (chronic obstructive pulmonary disease) ([facility] Depression Disc disease, degenerative, lumbar or lumbosacral DVT (deep venous thrombosis) ([facility]) 1995 right leg Edema GERD (gastroesophageal reflux [...] 10/17/2023 Performed by Bo Slaughter DO at [facility] CYST REMOVAL Left arm- pt unsure of when CYSTOSCOPY N/A 06/24/2023 Performed by Bo Dawson MD at [facility] CYSTOSCOPY REMOVAL STENT Left 10/09/2021 Performed by Bo Dawson MD at [facility] CYSTOSCOPY RETROGRADE PYELOGRAM Bilateral 06/24/2023 Performed by Bo Dawson MD at [facility] CYSTOSCOPY RETROGRADE PYELOGRAM Bilateral 09/18/2021 Performed by Bo Dawson MD at [facility] ENDOSCOPIC RELEASE CARPAL TUNNEL Left 12/14/2020 Performed by Aung Miller MD at [facility] ENDOVENOUS LASER ABLATION VEIN Right 06/14/2023 Performed by Jennifer Ho MD at [facility] EXTRACORPOREAL SHOCK WAVE LITHOTRIPSY EXTRACORPOREAL SHOCK WAVE LITHOTRIPSY Left 09/21/2024 Performed by Bo Dawson MD at [facility] EXTRACORPOREAL SHOCK WAVE LITHOTRIPSY Left 02/06/2021 Performed by Bo Dawson MD at [facility] EXTRACORPOREAL SHOCK WAVE LITHOTRIPSY Left 11/16/2020 Performed by Bo Dawson MD at [facility] EXTRACORPOREAL SHOCK WAVE LITHOTRIPSY Left 03/12/2018 Performed by Bo Dawson MD at [facility] EXTRACORPOREAL SHOCK WAVE LITHOTRIPSY Left 12/18/2017 Performed by Bo Dawson MD at [facility] EXTRACORPOREAL SHOCK WAVE LITHOTRIPSY / SIDE WILL BE CHOOSEN DAY OF PROCEDURE Right 06/17/2024 Performed by oB Dawson MD at [facility] INJECTION BLOCK NERVE MEDIAL BRANCH bilat L 4/5,/ Bilateral 08/18/2021 Performed by Hong Castro MD at [facility] INJECTION BLOCK NERVE MEDIAL BRANCH bilat L 4/5,02/25 Bilateral 06/02/2021 Performed by Hong Castro MD at [facility] INJECTION BLOCK SACROILIAC JOINT Bilateral 11/20/2024 Performed by Hong Castro MD at [facility] INJECTION BLOCK SACROILIAC JOINT Bilateral 09/27/2023 Performed by Hong Castro MD at [facility] INJECTION BLOCK SACROILIAC JOINT Bilateral 05/03/2023 Performed by Hong Castro MD at [facility] LASER HOLMIUM URETEROSCOPY RENAL STONES < OR=1CM Left 09/18/2021 Performed by Bo Dawson MD at [facility] PHLEBECTOMY Right 06/14/2023 Performed by Jennifer Ho MD at [facility] PLANTAR'S WART EXCISION Left foot RADIOFREQUENCY ABLATION SPINAL Left L 4/5, 5/1 Left 03/27/2024 Performed by Hong Castro MD at [facility] RADIOFREQUENCY ABLATION SPINAL Right L 4/5, 5/1 Right 03/06/2024 Performed by Hong Castro MD at [facility] RADIOFREQUENCY ABLATION SPINAL Left L 4/5,5/ Left 02/15/2023 Performed by Hong Castro MD at [facility] RADIOFREQUENCY ABLATION SPINAL Left L 4/5,5/1 Left 11/10/2021 Performed by Hong Castro MD at [facility] RADIOFREQUENCY ABLATION SPINAL Right L 4/5,5/ Right 06/08/2022 Performed by Hong Castro MD at [facility] Allergies Allergen Reactions Gabapentin Swelling Facial, [...] Safety: Unknown (11/25/2024) Received from [facility] Humiliation, Afraid, Rape, and Kick questionnaire Fear of Current or Ex-Partner: No Emotionally Abused: Not on file Physically Abused: Not on file Sexually Abused: Not on file Recent Concern: Interpersonal Safety - At Risk (11/25/2024) Received from [facility] Humiliation, Afraid, Rape, and Kick [...] during discussion, demonstrated appropriate cognitive reasoning and understandingof the medical condition by asking appropriate questions [...] spine and paraspinal musculature. Pain is elicited withflexion, extension, and lateral rotation of the lumbar [...] monitoring for toxicity We do not currently prescribeany controlled substance from this practice. At this [...] service. Rosalind Peña CNA 03/10/25 1427 Rocael Geotz PA-C 03/10/25 1537 documented in this encounterMer[facility] History of Present illness Narrative* Frank Baptiste PA-C - 03/03/2025 2:00 PM EDT [facility] Neurology Office Note 03/03/2025 12:08 PM Patient info: Nikole Banerjee is a 54 y.o. female Account No.: [id number] Acct: : 1970 PCP: SACHIN FOWLER Chief [...] device and there has not been any recentfalls. Current tremor does not adversely affect her [...] or neck (c-spine) injury/trauma: (-) hx of COLLEGE ASSOCIATE infection: (-) hx of stroke: Labs 11/09/23: [...] has an intention tremor, L > R. Tremoris not adversely affecting ADLs at this time. PLAN: Continue to monitor Follow up in the office in 1 year Electronically Signed by: Frank Baptiste PA-C 03/03/25 1514 documented in this encounterMer[facility]04-29-[facility]25 Miscellaneous Notes* Telephone Encounter - Candace Carmichael RN - 02/23/2025 11:20 AM EDT Last Office Visit: 12/09/2024 Next Office Visit: 03/10/2025 Last Urine Drug Screen: No results found for: BENZOSCRN OARRS appropriate documented in this encounterMercy Health [facility]04-29-2025 Telephone encounter Note* Telephone Encounter - Candace Carmichael RN - 02/23/2025 11:20 AM EDT Last Office Visit: 12/09/2024 Next Office Visit: 03/10/2025 Last Urine Drug Screen: No results found for: BENZOSCRN OARRS appropriate [facility]04-28-2025 History of Present illness Narrative* Khushi Esposito LPN - 02/22/2025 2:00 PM EDT Reason for Appointment: Patient ID: Nikole Banerjee [...] + Vit D) 600-200 MG- UNIT tablet Every 24 hours doxycycline (VIBRAMYCIN) 100 [...] nursing note reviewed. Exam conducted with a physical therapist present. Vitals: Estimated body mass index is [...] of: Calvin Quintanilla DO documented in this encounterSaint John's Regional Health [id number] Evaluation + Plan note* Assessment & Plan Note - Bo Dawson MD - 01/04/2025 2:53 PM EDT Associated Problem(s): Kidney stone KUB 1 year [facility]03-10-2025 Miscellaneous Notes* Assessment & Plan Note - Bo Dawson MD - 01/04/2025 2:53 PM EDTAssociated Problem(s): Kidney stone KUB 1 year documented in this encounterMercy Health [facility]field [facility]03-10-2025 History of Present illness Narrative* Bo Dawson MD - 01/04/2025 2:15 PM EDT Images from the original note were not included. [address] [place] [address] [facility] [address] Patient: Nikole Banerjee Date of : 1970 [...] , EXTPOCUBAC , EXTPOCUTREP , EXTPOCUPH , EXTPOCUL EE in the last 72 hours. Last BUN [...] past medical history, past social history, past surgicalhistory and problem list. Past Medical History: Diagnosis Date Asthma Bilateral flank pain Bladder spasm Bleeding from varicose vein Breast lesion marker right breast Bronchitis Cellulitis 07/07/2024 Pt. was admitted into the hospital for cellulitis of the right lower extremity. Chronic pain disorder COPD (chronic obstructive pulmonary disease) ([facility]) Depression Disc disease, degenerative, lumbar or lumbosacral DVT (deep venous thrombosis) ([facility]) 1995 right leg Edema GERD (gastroesophageal reflux [...] 10/17/2023 Performed by Bo Slaughter DO at [facility] CYST REMOVAL Left arm- pt unsure of when CYSTOSCOPY N/A 06/24/2023 Performed by Bo Dawson MD at [facility] CYSTOSCOPY REMOVAL STENT Left 10/09/2021 Performed by Bo Dawson MD at [facility] CYSTOSCOPY RETROGRADE PYELOGRAM Bilateral 06/24/2023 Performed by Bo Dawson MD at [facility] CYSTOSCOPY RETROGRADE PYELOGRAM Bilateral 09/18/2021 Performed by Bo Dawson MD at [facility] ENDOSCOPIC RELEASE CARPAL TUNNEL Left 12/14/2020 Performed by Aung Miller MD at [facility] ENDOVENOUS LASER ABLATION VEIN Right 06/14/2023 Performed by Jennifer Ho MD at [facility] EXTRACORPOREAL SHOCK WAVE LITHOTRIPSY EXTRACORPOREAL SHOCK WAVE LITHOTRIPSY Left 09/21/2024 Performed by Bo Dawson MD at [facility] EXTRACORPOREAL SHOCK WAVE LITHOTRIPSY Left 02/06/2021 Performed by Bo Dawson MD at [facility] EXTRACORPOREAL SHOCK WAVE LITHOTRIPSY Left 11/16/2020 Performed by Bo Dawson MD at [facility] EXTRACORPOREAL SHOCK WAVE LITHOTRIPSY Left 03/12/2018 Performed by oB Dawson MD at [facility] EXTRACORPOREAL SHOCK WAVE LITHOTRIPSY Left 12/18/2017 Performed by Bo Dawson MD at [facility] EXTRACORPOREAL SHOCK WAVE LITHOTRIPSY / SIDE WILL BE CHOOSEN DAY OF PROCEDURE Right 06/17/2024 Performed by Bo Dawson MD at [facility] INJECTION BLOCK NERVE MEDIAL BRANCH bilat L 4/5,5/ Bilateral 08/18/2021 Performed by Hong Castro MD at [facility] INJECTION BLOCK NERVE MEDIAL BRANCH bilat L 4/5,5/ Bilateral 06/02/2021 Performed by Hong Castro MD at [facility] INJECTION BLOCK SACROILIAC JOINT Bilateral 11/20/2024 Performed by Hong Castro MD at [facility] INJECTION BLOCK SACROILIAC JOINT Bilateral 09/27/2023 Performed by Hong Castro MD at [facility] INJECTION BLOCK SACROILIAC JOINT Bilateral 05/03/2023 Performed by Hong Castro MD at [facility] LASER HOLMIUM URETEROSCOPY RENAL STONES < OR=1CM Left 09/18/2021 Performed by Bo Dawson MD at [facility] PHLEBECTOMY Right 06/14/2023 Performed by Jennifer Ho MD at [facility] PLANTAR'S WART EXCISION Left foot RADIOFREQUENCY ABLATION SPINAL Left L 4/5, 5/ Left 03/27/2024 Performed by Hong Castro MD at [facility] RADIOFREQUENCY ABLATION SPINAL Right L 4/5, 5/1 Right 03/06/2024 Performed by Hong Castro MD at [facility] RADIOFREQUENCY ABLATION SPINAL Left L 4/5,5/1 Left 02/15/2023 Performed by Hong Castro MD at [facility] RADIOFREQUENCY ABLATION SPINAL Left L 4/5,5/1 Left 11/10/2021 Performed by Hong Castro MD at [facility] RADIOFREQUENCY ABLATION SPINAL Right L 4/5,5/1 Right 06/08/2022 Performed by Hong Castro MD at [facility] Family History Problem Relation Age of Onset [...] nightly Indications: controller medication for asthma. omega 3-cvq-mai-fish oil (Fish OiL) 300-1,000 mg capsule Take [...] results--after c/s back will discuss case w/Dr. Dawson. Briefly discussed potential for ureteroscopy/laser/stone extraction/stent to clear the left kidney. Offered referral to spine care for her back pain--pt accepted. Agreed to short course Gadsden refill (OARRS reviewed--not suspicious), Urelle refill and [...] stones bilaterally left greater than right. #### 2-2017 ESWL left side. Fragmentation the stone. Still [...] Follow-up: KUB 1 year return clinic Bo Dawson MD This note was created with the assistance of a speech recognition program. While intending to generate a timely document that accurately reflects the content of the visit, no guarantee can be provided that every grammatical or spelling mistake has been or will be identified or corrected. Thank you for your understanding. documented in this encounterEast Liverpool City HospitalCivilGEO Oaklawn [id number] NoteLarge joint: L knee on 12/30/2024 1:39 PM Indications: pain Details: 21 G needle, lateral approach Medications: 4 mL lidocaine (PF) 10 mg/mL (1 %); 25 mg sodium hyaluronate (Supartz FX) 10 mg/mL Outcome: tolerated well, no immediate complications Patient given #3 of 3 supartz injection to her left knee today, tolerated well. Follow up in 6 months, sooner if any issues or concerns.[facility]02-28-2025 NoteLarge joint: L knee on 12/25/2024 10:19 AM Indications: pain Details: 21 G needle, lateral approach Medications: 25 mg sodium hyaluronate (Supartz FX) 10 mg/mL; 4 mL lidocaine HCl 10 mg/mL (1 %) Outcome: tolerated well, no immediate complications Given second of three supartz injections into her left knee today, tolerated well. Follow up next week for third round.[facility] 12-16-2024 NoteLarge joint: L knee on 12/16/2024 12:34 PM Indications: pain Details: 21 G needle, lateral approach Medications: 4 mL lidocaine (PF) 10 mg/mL (1 %); 25 mg sodium hyaluronate (Supartz FX) 10 mg/mL Outcome: tolerated well, no immediate complications Given #1 of 3 supartz injection today, tolerated well. Follow up next week for second round.[facility]02-12-2025 History of Present illness Narrative* Rocael Goetz PA-C - 12/09/2024 12:30 PM EST [facility] [address] [place] [address] Patient: Nikole Banerjee Sex: female : 1970 Age: 54 y.o. PCP: MARCUS AMADOR APRN-DAVID 12/09/2024 Nikole Banerjee is here for a(n) post procedure follow up 11/20/2024 bilateral sacroiliac joint injection with 60% relief 60% pain relief x 2 hours. 30% relief continues. Patient states post procedureit has been less painful performing ADLs. Date [...] 50-60% pain relief and significant improvement in physicalfunctioning 06/08/22 Right L 4/5 5/1 RFA with [...] up 11/20/2024 bilateral sacroiliac joint injection with 60- 80% pain relief Back Pain This is a [...] relief, Flexeril w/no relief; Bossman w/adverse reaction, Gadsden w/mod relief. Cymbalta w/mod relief, Aquatic/PT 23 w/min relief) for the symptoms. The treatment provided moderate relief. The effect of pain on patient's ADLS: Moderate Impairment. Past Medical History: Diagnosis Date Asthma Bilateral flank pain Bladder spasm Bleeding from varicose vein Breast lesion marker right breast Bronchitis Cellulitis 07/07/2024 Pt. was admitted into the hospital for cellulitis of the right lower extremity. Chronic pain disorder COPD (chronic obstructive pulmonary disease) ([facility]) Depression Disc disease, degenerative, lumbar or lumbosacral DVT (deep venous thrombosis) ([facility]) 1995 right leg Edema GERD (gastroesophageal reflux [...] 10/17/2023 Performed by Bo Slaughter DO at [facility] CYST REMOVAL Left arm- pt unsure of when CYSTOSCOPY N/A 06/24/2023 Performed by Bo Dawson MD at [facility] CYSTOSCOPY REMOVAL STENT Left 10/09/2021 Performed by Bo Dawson MD at [facility] CYSTOSCOPY RETROGRADE PYELOGRAM Bilateral 06/24/2023 Performed by Bo Dawson MD at [facility] CYSTOSCOPY RETROGRADE PYELOGRAM Bilateral 09/18/2021 Performed by Bo Dawson MD at [facility] ENDOSCOPIC RELEASE CARPAL TUNNEL Left 12/14/2020 Performed by Aung Miller MD at [facility] ENDOVENOUS LASER ABLATION VEIN Right 06/14/2023 Performed by Jennifer Ho MD at [facility] EXTRACORPOREAL SHOCK WAVE LITHOTRIPSY EXTRACORPOREAL SHOCK WAVE LITHOTRIPSY Left 09/21/2024 Performed by Bo Dawson MD at [facility] EXTRACORPOREAL SHOCK WAVE LITHOTRIPSY Left 02/06/2021 Performed by Bo Dawson MD at [facility] EXTRACORPOREAL SHOCK WAVE LITHOTRIPSY Left 11/16/2020 Performed by Bo Dawson MD at [facility] EXTRACORPOREAL SHOCK WAVE LITHOTRIPSY Left 03/12/2018 Performed by Bo Dawson MD at [facility] EXTRACORPOREAL SHOCK WAVE LITHOTRIPSY Left 12/18/2017 Performed by Bo Dawson MD at [facility] EXTRACORPOREAL SHOCK WAVE LITHOTRIPSY / SIDE WILL BE CHOOSEN DAY OF PROCEDURE Right 06/17/2024 Performed by Bo Dawson MD at [facility] INJECTION BLOCK NERVE MEDIAL BRANCH bilat L 4/5,5/1 Bilateral 08/18/2021 Performed by Hong Castro MD at [facility] INJECTION BLOCK NERVE MEDIAL BRANCH bilat L 4/5,5/1 Bilateral 06/02/2021 Performed by Hong Castro MD at [facility] INJECTION BLOCK SACROILIAC JOINT Bilateral 11/20/2024 Performed by Hong Castro MD at [facility] INJECTION BLOCK SACROILIAC JOINT Bilateral 09/27/2023 Performed by Hong Castro MD at [facility] INJECTION BLOCK SACROILIAC JOINT Bilateral 05/03/2023 Performed by Hong Castro MD at [facility] LASER HOLMIUM URETEROSCOPY RENAL STONES < OR=1CM Left 09/18/2021 Performed by Bo Dawson MD at [facility] PHLEBECTOMY Right 06/14/2023 Performed by Jennifer Ho MD at [facility] PLANTAR'S WART EXCISION Left foot RADIOFREQUENCY ABLATION SPINAL Left L 4/5, 5/1 Left 03/27/2024 Performed by Hong Castro MD at [facility] RADIOFREQUENCY ABLATION SPINAL Right L 4/5, 5/1 Right 03/06/2024 Performed by Hong Castro MD at [facility] RADIOFREQUENCY ABLATION SPINAL Left L 4/5,5/1 Left 02/15/2023 Performed by Hong Castro MD at [facility] RADIOFREQUENCY ABLATION SPINAL Left L 4/5,5/1 Left 11/10/2021 Performed by Hong Castro MD at [facility] RADIOFREQUENCY ABLATION SPINAL Right L 4/5,5/1 Right 06/08/2022 Performed by Hong Castro MD at [facility] Allergies Allergen Reactions Gabapentin Swelling Facial, legs, [...] Safety: At Risk (11/25/2024) Received from [facility] Humiliation, Afraid, Rape, and Kick [...] during discussion, demonstrated appropriate cognitive reasoning and understandingof the medical condition by asking appropriate questions [...] spine and paraspinal musculature. Pain is elicited withflexion, extension, and lateral rotation of the lumbar [...] as to the type of medication prescribed alongwith directions for use. Potential side effects have [...] monitoring for toxicity We do not currently prescribeany controlled substance from this practice. It does appear that the patient benefited from the previous injection and the benefit has continuedthrough this visit. At this time, we will monitor the patient s symptoms from an interventional standpoint and consider another injection in the future if the patient s symptoms return or intensify severely. The patient was made aware that they should call if symptoms worsen or if their pain beginsto have a negative impact on their quality of life and activities of daily living again. The spine model was demonstrated and MRI was reviewed and used to explain the condition. Chronic conditions not treated during this visit that affected my overall medical decision making: Obesity, COPD OARRS: Reviewed. Scribe Statement: Rosalind Rob CNA, [...] Goetz PA-C 12/09/24 1354 documented in this encounterMercy Health [facility]02-07-2025 Miscellaneous Notes* Telephone Encounter - Kaya Goins - 12/04/2024 1:22 PM EST 1st Attempt - Reschedule: Patient's appointment needs to be rescheduled at this time due to provider out of clinic. Attemptedto contact patient to reschedule appointment but number on file is not in service. Will make a second attempt. Date: February 10, 2025 Provider: Frank Baptiste at [facility] Rescheduling Instructions: NEXT AVAILABLE * Telephone Encounter - Genet Lawrence - 12/04/2024 1:22 PM EST 2nd attempt: Production Helper attempted to contact patient once more and leave a voicemail instructing them to call us back at [phone] to reschedule their upcoming appointment that has been cancelled due to their provider being out of office this day. Unable to reach patient or leave a voicemail - received an automated message stating the number you have dialed is not in service / it has been changed or disconnected. Please see scheduling instructions below. documented in this encounterCommunity Memorial Hospital Trust [id number] Telephone encounter Note* Telephone Encounter - Kaya Goins - 12/04/2024 1:22 PM EST 1st Attempt - Reschedule: Patient's appointment needs to be rescheduled at this time due to provider out of clinic. Attemptedto contact patient to reschedule appointment but number on file is not in service. Will make a second attempt. Date: February 10, 2025 Provider: Frank Baptiste at [facility] Rescheduling Instructions: NEXT AVAILABLE [facility]In[facility]25 Telephone encounter Note* Telephone Encounter - Genet Lawrence - 12/04/2024 1:22 PM EST 2nd attempt: Production Helper attempted to contact patient once more and leave a voicemail instructing them to call us back at [phone] to reschedule their upcoming appointment that has been cancelled due to their provider being out of office this day. Unable to reach patient or leave a voicemail - received an automated message stating the number you have dialed is not in service / it has been changed or disconnected. Please see scheduling instructions below. [employer]01-29-2025 NoteOrthopedic Surgery Visit Description: Return visit Subjective Chief complaint: Chronic L knee pain 11/25/24 Nikole Banerjee is a 54 y.o. year old female presenting for the above reason. She is a [facility] patient that we have been following for this issue for some time. We previously injected her L knee with Supartz in May 1x and planned to do shot number 2 [...] approved Casper Barker MD Orthopedic Surgery, PGY-5 [facility] Pager: [phone] 11/25/24 10:40 AM This note was created [...] may be an additional personal documentation from me.[facility]01-08-2025 History of Present illness Narrative* Rocael oGetz PA-C - 11/04/2024 1:00 PM EST [facility] [address] [place] [address] Patient: Nikole Banerjee Sex: female : 1970 Age: 54 y.o. PCP: MARCUS AMADOR APRN-DAVID 11/04/2024 Nikole Banerjee is here for a(n) [...] 50-60% pain relief and significant improvement in physicalfunctioning 06/08/22 Right L 4/5 5/1 RFA with [...] relief, Flexeril w/no relief; Bossman w/adverse reaction, Gadsden w/mod relief. Cymbalta w/mod relief, Aquatic/PT Nov-2022 [...] pain disorder COPD (chronic obstructive pulmonary disease) ([facility]) Depression Disc disease, degenerative, lumbar or lumbosacral DVT (deep venous thrombosis) ([facility]) 1995 right leg Edema GERD (gastroesophageal reflux [...] 10/17/2023 Performed by Bo Slaughter DO at [facility] CYST REMOVAL Left arm- pt unsure of when CYSTOSCOPY N/A 06/24/2023 Performed by Bo Dawson MD at [facility] CYSTOSCOPY REMOVAL STENT Left 10/09/2021 Performed by Bo Dawson MD at [facility] CYSTOSCOPY RETROGRADE PYELOGRAM Bilateral 06/24/2023 Performed by Bo Dawson MD at [facility] CYSTOSCOPY RETROGRADE PYELOGRAM Bilateral 09/18/2021 Performed by Bo Dawson MD at [facility] ENDOSCOPIC RELEASE CARPAL TUNNEL Left 12/14/2020 Performed by Aung Miller MD at [facility] ENDOVENOUS LASER ABLATION VEIN Right 06/14/2023 Performed by Jennifer Ho MD at [facility] EXTRACORPOREAL SHOCK WAVE LITHOTRIPSY EXTRACORPOREAL SHOCK WAVE LITHOTRIPSY Left 09/21/2024 Performed by Bo Dawson MD at [facility] EXTRACORPOREAL SHOCK WAVE LITHOTRIPSY Left 02/06/2021 Performed by Bo Dawson MD at [facility] EXTRACORPOREAL SHOCK WAVE LITHOTRIPSY Left 11/16/2020 Performed by Bo Dawson MD at [facility] EXTRACORPOREAL SHOCK WAVE LITHOTRIPSY Left 03/12/2018 Performed by Bo Dawson MD at [facility] EXTRACORPOREAL SHOCK WAVE LITHOTRIPSY Left 12/18/2017 Performed by Bo Dawson MD at [facility] EXTRACORPOREAL SHOCK WAVE LITHOTRIPSY / SIDE WILL BE CHOOSEN DAY OF PROCEDURE Right 06/17/2024 Performed by Bo Dawson MD at [facility] INJECTION BLOCK NERVE MEDIAL BRANCH bilat L 4/5,5/ Bilateral 08/18/2021 Performed by Hong Castro MD at [facility] INJECTION BLOCK NERVE MEDIAL BRANCH bilat L 4/5,/ Bilateral 06/02/2021 Performed by Hong Castro MD at [facility] INJECTION BLOCK SACROILIAC JOINT Bilateral 09/27/2023 Performed by Hong Castro MD at [facility] INJECTION BLOCK SACROILIAC JOINT Bilateral 05/03/2023 Performed by Hong Castro MD at [facility] LASER HOLMIUM URETEROSCOPY RENAL STONES < OR=1CM Left 09/18/2021 Performed by Bo Dawson MD at [facility] PHLEBECTOMY Right 06/14/2023 Performed by Jennifer Ho MD at [facility] PLANTAR'S WART EXCISION Left foot RADIOFREQUENCY ABLATION SPINAL Left L 4/5, 5/1 Left 03/27/2024 Performed by Hong Castro MD at [facility] RADIOFREQUENCY ABLATION SPINAL Right L 4/5, 5/ Right 03/06/2024 Performed by Hong Castro MD at [facility] RADIOFREQUENCY ABLATION SPINAL Left L 4/5,5/1 Left 02/15/2023 Performed by Hong Castro MD at [facility] RADIOFREQUENCY ABLATION SPINAL Left L 4/5,5/ Left 11/10/2021 Performed by Hong Castro MD at [facility] RADIOFREQUENCY ABLATION SPINAL Right L 4/5,5/1 Right 06/08/2022 Performed by Hong Castro MD at [facility] Allergies Allergen Reactions Gabapentin Swelling Facial, legs, [...] - At Risk (07/03/2024) Received from [facility] Humiliation, Afraid, Rape, and Kick [...] during discussion, demonstrated appropriate cognitive reasoning and understandingof the medical condition by asking appropriate questions [...] spine and paraspinal musculature. Pain is elicited withflexion, extension, and lateral rotation of the lumbar [...] procedure was described in detail to the patientas well as the potential benefits of pain [...] monitoring for toxicity We do not currently prescribeany controlled substance from this practice. It is noted that the patient did have good response from the previously performed procedure. It is felt that the patient would benefit from an additional procedure of the same nature in that the samesymptoms have returned. It is hopeful that this [...] time and cannot maintain an airway. These preparationswill be made as necessary. OARRS: Reviewed. Scribe Statement: Rosalind Rob CNA, scribed for and in the presence of ROCAEL GOETZ PA-C who performed the above service. Provider Statement: ROCAEL Rob PA-C, personally performed the services described in the documentation, as scribed by Rosalind Peña CNA in my presence, and it is both accurate and complete. Rosalind Peña CNA 11/04/24 [id number] Rocael Goetz PA-C 11/04/24 [id number] documented in this encounterEast Liverpool City HospitalCivilGEO Oakla[facility] [id number] Instructions* Patient Instructions* Rosalind Peña CNA - 11/04/2024 1:00 PM [...] take you to the nearest emergency room. Tellthe emergency room staff that you recently had a spine injection. A doctor must evaluate you for bleeding and injection complications. If you lose control over bowel, bladder, or legs: Go to the nearest emergency room. [facility] History of Present illness Narrative* Ifeoma Castrejon, MANAGER TALENT MANAGEMENT - 09/01/2024 1:40 PM EST Reason for Appointment: Patient ID: Nikole Banerjee [...] + Vit D) 600-200 MG- UNIT tablet Every 24 hours cefadroxil (Duricef) 500 [...] nursing note reviewed. Exam conducted with a physical therapist present. Vitals: Estimated body mass index is 48.94 kg/m as calculated from the following: Height as of 02/12/23: 5' 1 . Weight as of this encounter: 259 lb. BP: No LMP recorded (approximate). Patient is postmenopausal. ASSESSMENT & PLAN ICD-10-CM 1. Encounter to discuss test results Z71.2 2. Osteoporosis, post-menopausal (CMS/HCC) M81.0 Pt presents to discuss dexa scan results. Pt is osteoporotic. Discussed all options with pt in detail. Pt is high fracture risk. Discussed possible causes. Pt to start prolia injections. Pt to be contacted for injection. Pt to return as needed. Documented by Ifeoma Castrejon LPN on behalf of: Calvin Quintanilla DO documented in this encounterSaint John's Regional Health [id number] Miscellaneous Notes* Result Encounter Note - Solange Mike LPN - 08/04/2024 1:08 PM EDT Pt notified and was transferred upfront to schedule. documented in this encounterSaint John's Regional Health [id number] Progress note* Result Encounter Note - Solange Mike LPN - 08/04/2024 1:08 PM EDT Pt notified and was transferred upfront to schedule. [facility] Diagnosis Encounter to discuss test results Other specified counseling Osteoporosis, post-menopausal ([facility]) Senile osteoporosis documented in this encounter [facility] [...] Disorders of sacrum [facility] Diagnosis Urinary tract infection, site [...] Disorders of sacrum [facility] Diagnosis Urinary tract infection, site [...] of mineral metabolism documented [facility] encounter [facility]* Diagnosis Well woman exam with [...] forms of tremor documented in this encounter [facility]* Diagnosis Urinary tract infection, site [...] Disorders of sacrum [facility] Diagnosis Urinary tract infection, site [...] (BMI) of 45.0 to 49.9 in adult ([facility])- Primary Venous stasis ulcer of right calf with fat layer exposed with varicose veins ([facility]) Varicose veins of bilateral lower extremities with pain [facility] Diagnosis Urinary tract infection, site [...] myelopathy [facility] Diagnosis Urinary tract infection, site [...] Disorders of sacrum documented in this encounter [facility] SystemInstructionsNot [...] FoundNo Family History Records Found Advance Directives Date ActivatedDate InactivatedComments07/07/2024 8:59 PM07/19/2024 2:30 PMDate ActivatedDate InactivatedComments11/11/2023 9:16 AM11/14/2023 9:31 PMDate ActivatedDate InactivatedComments07/07/2024 8:59 PM07/19/2024 2:30 PMDate ActivatedDate InactivatedComments11/11/2023 9:16 AM11/14/2023 9:31 PM Additional Source Comments INFORMATION SOURCE (unrecogn ized section and content) DATE CREATED AUTHOR 04/17/2018 [facility] DATE CREATED AUTHOR AUTHOR'S ORGANIZ ATION 04/21/2018 [facility] DATE CREATED AUTHOR AUTHOR'S ORGANIZ ATION 01/04/2020 [facility] DATE CREATED AUTHOR AUTHOR'S ORGANIZ ATION 10/05/2021 [facility] DATE CREATED AUTHOR AUTHOR'S ORGANIZ ATION 03/13/2023 [facility] DATE CREATED AUTHOR AUTHOR'S ORGANIZ ATION 03/06/2025 [facility] DATE CREATED AUTHOR AUTHOR'S ORGANIZ ATION 04/19/2025 [facility] DATE CREATED AUTHOR AUTHOR'S ORGANIZ ATION 06/12/2025 [facility] DATE CREATED AUTHOR AUTHOR'S ORGANIZ ATION 08/20/2025 [facility] DATE CREATED AUTHOR AUTHOR'S ORGANIZ ATION 08/25/2025 [facility] Reason for Visit (unrecogniz ed section and content) ReasonCommentsDiscuss Dexa resultsPt present today to discuss test resultsReason CommentsBack PainReasonOnset DateComments02/10/25 [facility] 12/04/2024ReasonCommentsBack PainReasonCommentsFollow-upReasonCommentsWell Women VisitReasonOnset DateCommentsMed Bfssvh4002/23/2025ReasonCommentsFollow-upPatient is here today for follow up on dx: Intention tremorReasonCommentsVenous stasis dermatitis and venous stasis ulceration.Right knee pain 6/10 pain scale tylenol does not helpReasonOnset DateCommentsMed Wvoldy2106/24/2025ReasonCommentsBack Pain Care Teams (unrecognized sec tion and content) Team MemberRelationshipSpecialtyStart DateEnd Date Marcus Amador APRN-ALLIED HEALTH TEACHER [address] [place] [address] PCP - GeneralFamily Medicine05/06/24Team MemberRelationshipSpecialtyStart DateEnd Date Marcus Amador APRN-ALLIED HEALTH TEACHER [address] [place] [address] PCP - GeneralFamily Medicine05/06/24Team MemberRelationshipSpecialtyStart DateEnd Date Marcus Amador, SHERIE-ALLIED HEALTH TEACHER [address] [place] [address] PCP - GeneralFamily Medicine05/06/24Team MemberRelationshipSpecialtyStart DateEnd Date Marcus Amador, FILLER FEEDER-ALLIED HEALTH TEACHER [address] [place] [address] PCP - GeneralFamily Medicine05/06/24Team MemberRelationshipSpecialtyStart DateEnd Date Marcus Amador, FILLER FEEDER-ALLIED HEALTH TEACHER [address] [place] [address] PCP - GeneralFamily Medicine05/06/24Team MemberRelationshipSpecialtyStart DateEnd Date Marcus Amador, FILLER FEEDER-ALLIED HEALTH TEACHER [address] [place] [address] PCP - GeneralFamily Medicine05/06/24Team MemberRelationshipSpecialtyStart DateEnd Date Diana Michele APRN-MERGERS AND ACQUISITIONS MANAGER [address] [place] [address] PCP - GeneralNurse Practitioner03/16/25Team MemberRelationshipSpecialtyStart Date End Date Diana Michele APRN-MERGERS AND ACQUISITIONS MANAGER [address] [place] [address] PCP - GeneralNurse Practitioner03/16/25Team MemberRelationshipSpecialtyStart Date End Date Diana Michele FILLER FEEDER-MERGERS AND ACQUISITIONS MANAGER [address] [place] [address] PCP - GeneralNurse Practitioner03/16/25Team MemberRelationshipSpecialtyStart Date End Date Diana Michele [facility] [address] [place] [address] PCP - GeneralNurse Practitioner03/16/25Team MemberRelationshipSpecialtyStart Date End Date Diana Michele [facility] [address] [place] [phone] PCP - GeneralNurse Practitioner03/16/25Team MemberRelationshipSpecialtyStart Date End Date Diana Michele [facility] [address] [place] [phone] PCP - GeneralNurse Practitioner03/16/25Te MemberRelationshipSpecialtyStart Date End Date Diana Michele [facility] [address] [place] [phone] PCP - GeneralNst. [facility] Practitioner03/16/25 FOR RECORDS PERTAINING TO PATIENTS WHO ARE [...] BE BASED ON THE PRIMARY CLINICAL RECORDS. [facility] HospitalIntraxio [facility]. provides no warranty or guarantee of the accuracy or completeness of information in this document.
[2025-09-08 11:55] LABS: Calcium 8.8 mg/dL (8.5-10.1); Estimated GFR (African America >60 (>=60 mL/min/1.73m^2); Estimated GFR (Non-African Ame >60 (>=60 mL/min/1.73m^2)
== END 2025-09-08 11:08 | disposition home or self-care (01) ==
LOC: LAB 11:09
PROVIDERS: PCP Nurse Practitioner Family; Visit Provider Obstetrics & Gynecology
DX: M81.0 Age-related osteoporosis without current pathological fracture (principal)
CPT/HCPCS: 36415; 82310; 82565

== ENCOUNTER 2025-10-04 13:33 | Outpatient (RCR) | payer MEDICARE, MEDICAID, SELFPAY ==
[2025-10-04 13:38] VITALS: BP 148/85; PULSE 96; TEMP 36.9; O2SAT 96
[2025-10-04] MEDS: DENOSUMAB 60 MG/ML SYRINGE SUBQ (14:08)
== END 2025-10-27 23:59 | disposition home or self-care (01) ==
LOC: INF 13:33
PROVIDERS: PCP Nurse Practitioner Family; Visit Provider Obstetrics & Gynecology
DX: M81.0 Age-related osteoporosis without current pathological fracture (principal)
CPT/HCPCS: 96372; J0897